=== PATIENT | male | born 1975 | race American Indian/Alaskan Native ===

== ENCOUNTER 2016-12-09 10:55 | Inpatient (IN) | payer OTHER ==
[2016-12-09 12:40] LABS: Alanine Aminotransferase 83 units/L (7-56); Albumin 3.2 g/dL (3.9-5); Albumin/Globulin Ratio 0.9 %; Alkaline Phosphatase 105 units/L (35-129); Anion Gap 21 mmol/L; Bilirubin,Total 12.1 mg/dL (0.1-1.2); Blood Urea Nitrogen 24 mg/dL (9-20); Calcium 8.4 mg/dL (8.4-10.2); Carbon Dioxide 21 mmol/L (22-30); Chloride 97.7 mmol/L (98-107); Glucose 139 mg/dL (75-100); Potassium 5.1 mmol/L (3.6-5.0); Sodium 135 mmol/L (137-145); Total Protein 6.6 g/dL (6.3-8.2)
[2016-12-09 12:43] LABS: Basophils % (Auto) 0.9 % (0.0-1.8); Eosinophils % (Auto) 0.3 % (0.0-4.3); Hematocrit 30.8 % (35.5-45.6); Hemoglobin 9.8 gm/dl (11.8-15.2); Mean Corpuscular HGB Conc 32 % (32-34); Mean Corpuscular Hemoglobin 26 pg (28-32); Mean Corpuscular Volume 83 fl (84-94); Platelet Count 445 K/mm3 (140-440); Red Blood Count 3.73 M/mm3 (3.65-5.03); White Blood Count 8.8 K/mm3 (4.5-11.0)
[2016-12-09 12:49] LABS: Red Cell Distribution Width 20.4 % (13.2-15.2)
--- NOTE | 2016-12-09 12:51 | XRay Report ---
CHEST XRAY, 2 VIEWS: History: Shortness of breath. Findings: There is mild cardiomegaly. Pulmonary vessels are within normal limits. The lungs are clear and fully expanded. No infiltrate, pleural effusion or pneumothorax. Normal thoracic cage. IMPRESSION: Cardiomegaly.
[2016-12-09] MEDS ORDERED: NITRO-BID 2% TP ONE (12:54)
[2016-12-09] MEDS ORDERED: LASIX IV ONE (12:54)
--- NOTE | 2016-12-09 12:59 | Emergency Department Report ---
ED General Adult HPI - General Chief complaint: Pain General Stated complaint: FLUIDS LEGS/FEET Time Seen by Provider: 12/09/16 12:40 Source: patient Mode of arrival: Ambulatory Limitations: No Limitations - History of Present Illness MD Complaint: swelling and SOB -: Gradual, month(s) Location: abdomen, genitals, lower extremity Radiation: non-radiation Quality: aching Consistency: constant Improves with: medication Worsens with: none Associated Symptoms: denies other symptoms Treatments Prior to Arrival: none - Related Data Home Medications Medication Instructions Recorded Confirmed Last Taken Aspirin [Aspirin TAB] 325 mg PO QDAY 12/09/16 12/09/16 Unknown Previous Rx's Medication Instructions Recorded Last Taken Type Carvedilol [Coreg] 6.25 mg PO BID #60 tablet 12/01/16 Unknown Rx Furosemide [Lasix TAB] 40 mg PO QDAY #30 tablet 12/01/16 Unknown Rx Lisinopril [Zestril TAB] 5 mg PO QDAY #30 tablet 12/01/16 Unknown Rx Potassium Chloride 10 meq PO QDAY #30 capsule.er 12/01/16 Unknown Rx hydrALAZINE [Apresoline TAB] 75 mg PO Q8HR #90 tablet 12/01/16 Unknown Rx Allergies Allergy/AdvReac Type Severity Reaction Status Date / Time No Known Allergies Allergy Verified 08/18/16 21:37 ED Review of Systems ROS: Stated complaint: FLUIDS LEGS/FEET Other details as noted in HPI Comment: All other systems reviewed and negative Constitutional: denies: chills, fever Eyes: denies: eye pain, eye discharge, vision change ENT: denies: ear pain, throat pain Respiratory: denies: cough, shortness of breath, wheezing Cardiovascular: denies: chest pain, palpitations Endocrine: no symptoms reported Gastrointestinal: denies: abdominal pain, nausea, diarrhea Genitourinary: denies: urgency, dysuria Musculoskeletal: denies: back pain, joint swelling, arthralgia Skin: denies: rash, lesions Neurological: denies: headache, weakness, paresthesias Psychiatric: denies: anxiety, depression Hematological/Lymphatic: denies: easy bleeding, easy bruising ED Past Medical Hx - Past Medical History Previous Medical History?: Yes Hx Hypertension: Yes (noncompliant) Hx Congestive Heart Failure: Yes Hx Diabetes: No Hx Asthma: No Hx COPD: No - Surgical History Past Surgical History?: No - Social History Smoking Status: Current Every Day Smoker Substance Use Type: Prescribed - Medications Home Medications: Home Medications Medication Instructions Recorded Confirmed Last Taken Type Carvedilol [Coreg] 6.25 mg PO BID #60 tablet 12/01/16 12/09/16 Unknown Rx Furosemide [Lasix TAB] 40 mg PO QDAY #30 tablet 12/01/16 12/09/16 Unknown Rx Lisinopril [Zestril TAB] 5 mg PO QDAY #30 tablet 12/01/16 12/09/16 Unknown Rx Potassium Chloride 10 meq PO QDAY #30 capsule.er 12/01/16 12/09/16 Unknown Rx hydrALAZINE [Apresoline TAB] 75 mg PO Q8HR #90 tablet 12/01/16 12/09/16 Unknown Rx Aspirin [Aspirin TAB] 325 mg PO QDAY 12/09/16 12/09/16 Unknown History ED Physical Exam - General Limitations: No Limitations General appearance: alert, in no apparent distress - Head Head exam: Present: atraumatic, normocephalic - ENT ENT exam: Present: mucous membranes moist - Neck Neck exam: Present: normal inspection. Absent: tenderness, meningismus, full ROM, lymphadenopathy, thyromegaly - Respiratory Respiratory exam: Present: rales, decreased breath sounds - Cardiovascular Cardiovascular Exam: Present: regular rate, normal rhythm. Absent: systolic murmur, diastolic murmur, rubs, gallop - GI/Abdominal GI/Abdominal exam: Present: soft, distended, normal bowel sounds. Absent: tenderness, guarding, rebound, rigid - Rectal Rectal exam: Present: deferred - Extremities Exam Extremities exam: Present: full ROM, normal capillary refill, pedal edema. Absent: tenderness, calf tenderness - Back Exam Back exam: Present: normal inspection - Psychiatric Psychiatric exam: Present: normal affect, normal mood - Skin Skin exam: Present: warm, dry, intact, normal color. Absent: rash ED Course Vital Signs 12/09/16 12/09/16 12/09/16 11:45 13:34 14:39 Temperature 98.4 F Pulse Rate 109 H 106 H 103 H Respiratory 20 26 H Rate Blood Pressure 136/96 134/98 Blood Pressure 142/95 [Left] O2 Sat by Pulse 99 100 Oximetry 12/09/16 14:57 Temperature Pulse Rate Respiratory 26 H Rate Blood Pressure Blood Pressure [Left] O2 Sat by Pulse 95 Oximetry ED Medical Decision Making - Lab Data Result diagrams: 12/09/16 12:02 12/09/16 12:02 - EKG Data -: EKG Interpreted by Me EKG shows normal: sinus rhythm Rate: tachycardia - EKG Data When compared to previous EKG there are: no significant change - Medical Decision Making Patient will need admission for CHF / pulmonary edema, and liver failure, He says hes complaint with his meds, currently stable here and talk to cardiology and internal medicine and agree with admission. lasix / nitro given here. Critical care attestation.: If time is entered above; I have spent that time in minutes in the direct care of this critically ill patient, excluding procedure time. ED Disposition Clinical Impression: HTN (hypertension), Acute CHF (congestive heart failure) Disposition: OP ADMITTED IP TO THIS HOSP Is pt being admited?: Yes Does the pt Need Aspirin: No Condition: Good Instructions: Hypertension (ED) Referrals: PRIMARY CARE, [Primary Care Provider] - 3-5 Days Time of Disposition: 15:43
[2016-12-09 14:00] LABS: Creatine Kinase MB 3.1 ng/mL (0.0-4.0)
[2016-12-09 14:52] LABS: Bilirubin,Urine SM (Negative); Blood,Urine NEG (Negative); Ketones,Urine NEG (Negative); Leukocyte Esterase,Urine NEG (Negative); Nitrite,Urine NEG (Negative); Protein,Urine <15 mg/dL mg/dL (Negative); RBC,Urine < 1.0 /HPF (0.0-6.0)
--- NOTE | 2016-12-09 15:48 | Admit Criteria Form ---
Admission Criteria Documentation: HEART FAILURE: COMMON COMPLICATIONS Clinical Indications for Inpatient Care (Place 'X' for any and all applicable criteria): Ongoing inpatient care may be indicated for heart failure with ANY ONE of the following (1)(2)(3)(4)(5): [ ]I. Ongoing need for care for primary condition requiring frequent therapy adjustments because of changes in cardiac function (eg, drug dosage changes for drugs that are renally metabolized) [ ]II. New-onset heart failure [ ]III. Heart failure with decreased urine output not responsive to attempts to optimize volume status [ ]IV. Acute cardiac ischemia causing or associated with failure [X]V. Complications of heart failure, including ANY ONE of the following: [ ]a) Pericardial effusion [ ]b) Symptomatic pleural effusion [ ]c) O2 saturation <90% or PO2 < 60 mm Hg (8.0 kPa) on room air or require baseline supplemental O2 [ ]d) Tachypnea [X]e) Dyspnea [ ]f) Syncope [ ]g) Change in mental status [ ]h) Acute renal insufficiency that is severe (reduction of more than 50% in estimated glomerular filtration rate from baseline) or progressive reduction of more than 25% in estimated glomerular filtration rate from baseline, with creatinine continuing to rise) [ ]i) Hemodynamic instability [ ]j) Anasarca [ ]k) Clinically significant metabolic abnormalities due to heart failure (eg, new-onset metabolic acidosis) Extended stay beyond goal length of stay for primary condition may be needed until ALL of the following are present(1)(3): [ ]a) Stable and effective diuretic regimen established (or patient on stable dialysis regimen if in chronic renal failure) [ ]b) Breathing comfortably at rest [ ]c) Saturation of arterial oxygen greater than 90% or at acceptable baseline [ ]d) Pulmonary edema absent or improved [ ]e) Hemodynamic stability [ ]f) Volume status acceptable on oral medication [ ]g) Peripheral or sacral edema absent or improved [ ]h) Renal function stable and manageable at a lower level of care [ ]i) Complications (eg, pleural effusion) resolved or manageable at a lower level of care [ ]j) Patient or caregiver has received written discharge instructions or educational material addressing activity level, diet, discharge medications, follow-up appointment, weight monitoring, and what to do if symptoms worsen The original [facility] content created by [employer] has been revised. The portions of the content which have been revised are identified through the use of italic text or in bold, and [facility] has neither reviewed nor approved the modified material.All other unmodified content is copyright [facility]. Please see references footnoted in the original [facility] edition 2016 Admission Criteria Met: Yes
--- NOTE | 2016-12-09 15:59 | Consultation ---
History of Present Illness Consult date: 12/09/16 Requesting physician: CRESENCIO JORDAN Consult reason: congestive heart failure History of present illness: The patient is a 41 year old male with a history of chronic systolic heart failure, hypertension who presented with complaints of worsening abdominal and lower extremity edema over the past 2 days. He was just discharged from [facility] on 12/01/16 following an admission for heart failure. He states that he has been taking lasix 40mg BID and watching his salt and fluid intake. He is not particularly short of breath. He has chronic dyspnea on exertion and orthopnea which is unchanged. No chest pain, palpitations, nausea, vomiting or diaphoresis. Troponin negative. BNP 3990. Bilirubin 12.1. Echo done 07/2016 showed EF 40-45%, moderate MR, mild-moderate TR. No previous ischemic evaluation. Past History Past Medical History: heart failure, hypertension Past Surgical History: No surgical history Social history: smoking (smokes 3-4 cigarettes/day), full code. denies: alcohol abuse, prescription drug abuse, IV drug use Family history: no significant family history Medications and Allergies Allergies Allergy/AdvReac Type Severity Reaction Status Date / Time No Known Allergies Allergy Verified 08/18/16 21:37 Home Medications Medication Instructions Recorded Confirmed Last Taken Type Carvedilol [Coreg] 6.25 mg PO BID #60 tablet 12/01/16 12/09/16 Unknown Rx Furosemide [Lasix TAB] 40 mg PO QDAY #30 tablet 12/01/16 12/09/16 Unknown Rx Lisinopril [Zestril TAB] 5 mg PO QDAY #30 tablet 12/01/16 12/09/16 Unknown Rx Potassium Chloride 10 meq PO QDAY #30 capsule.er 12/01/16 12/09/16 Unknown Rx hydrALAZINE [Apresoline TAB] 75 mg PO Q8HR #90 tablet 12/01/16 12/09/16 Unknown Rx Aspirin [Aspirin TAB] 325 mg PO QDAY 12/09/16 12/09/16 Unknown History Review of Systems Constitutional: no fever, no chills Ears, nose, mouth and throat: no nasal congestion, no nasal discharge, no sinus pressure Cardiovascular: orthopnea, shortness of breath, dyspnea on exertion, leg edema, no chest pain, no palpitations Respiratory: shortness of breath, dyspnea on exertion, no cough, no congestion, no wheezing Gastrointestinal: no abdominal pain, no nausea, no vomiting, no diarrhea Genitourinary Male: no dysuria, no hematuria Musculoskeletal: no neck stiffness, no neck pain, no myalgias Integumentary: no rash, no pruritis Neurological: no parathesias, no numbness, no tingling, no headaches Endocrine: no cold intolerance, no heat intolerance Hematologic/Lymphatic: no easy bruising, no easy bleeding Allergic/Immunologic: no urticaria, no wheezing Physical Examination Vital Signs Temp Pulse Resp BP Pulse Ox 98.4 F 109 H 20 136/96 99 12/09/16 11:45 12/09/16 11:45 12/09/16 11:45 12/09/16 11:45 12/09/16 11:45 General appearance: no acute distress HEENT: Positive: Jaundice, Normocephaly, Mucus Membranes Moist Neck: Positive: neck supple, trachea midline Cardiac: Positive: Reg Rate and Rhythm, S1/S2, Systolic Murmur Lungs: Positive: clear to auscultation Neuro: Positive: Grossly Intact Abdomen: Positive: Soft, Distended Skin: Positive: Clear. Negative: Rash Extremities: Present: +3 Edema (bilateral lower legs) Results 12/09/16 12:02 12/09/16 12:02 Cardiac Enzymes 12/09/16 12/09/16 Range/Units 12:02 12:02 AST 46 H (5-40) units/L CK-MB (CK-2) 3.1 (0.0-4.0) ng/mL CBC 12/09/16 Range/Units 12:02 WBC 8.8 (4.5-11.0) K/mm3 RBC 3.73 (3.65-5.03) M/mm3 Hgb 9.8 L (11.8-15.2) gm/dl Hct 30.8 L (35.5-45.6) % Plt Count 445 H (140-440) K/mm3 Lymph # 1.9 (1.2-5.4) K/mm3 [place] # 0.7 (0.0-0.8) K/mm3 Eos # 0.0 (0.0-0.4) K/mm3 Baso # 0.1 (0.0-0.1) K/mm3 Comprehensive Metabolic Panel 03/15/17 Range/Units 12:02 Sodium 135 L (137-145) mmol/L Potassium 5.1 H (3.6-5.0) mmol/L Chloride 97.7 L (98-107) mmol/L Carbon Dioxide 21 L (22-30) mmol/L BUN 24 H (9-20) mg/dL Creatinine 0.8 (0.8-1.5) mg/dL Glucose 139 H (75-100) mg/dL Calcium 8.4 (8.4-10.2) mg/dL AST 46 H (5-40) units/L ALT 83 H (7-56) units/L Alkaline Phosphatase 105 (35-129) units/L Total Protein 6.6 (6.3-8.2) g/dL Albumin 3.2 L (3.9-5) g/dL - Imaging and Cardiology Echo: pending, report reviewed EKG: image reviewed EKG interpretations - Telemetry EKG Rhythm: Sinus Rhythm - EKG Sinus rhythms and dysrhythmias: sinus rhythm Assessment and Plan Acute on chronic systolic heart failure Echo 07/2016: EF 40-45%, moderate MR, mild-moderate TR, await repeat continue IV lasix, coreg, lisinopril strict I/Os Jaundice/elevated bilirubin recommend GI evaluation Hypertension stable Non-compliance Continue IV lasix and close monitoring of volume status. Await repeat echo findings. Recommend GI evaluation. The patient has been seen in conjunction with Dr. Jennings who agrees with the assessment and plan of care. Thank you Dr. Jordan for allowing us to participate in the care of this patient.
--- NOTE | 2016-12-09 17:54 | History and Physical Report ---
History of Present Illness Date of examination: 12/09/16 Date of admission: 12/09/16 Past History Past Medical History: heart failure, hypertension Past Surgical History: No surgical history Social history: smoking (smokes 3-4 cigarettes/day), full code. denies: alcohol abuse, prescription drug abuse, IV drug use Family history: no significant family history Medications and Allergies Allergies Allergy/AdvReac Type Severity Reaction Status Date / Time No Known Allergies Allergy Verified 08/18/16 21:37 Home Medications Medication Instructions Recorded Confirmed Last Taken Type Carvedilol [Coreg] 6.25 mg PO BID #60 tablet 12/01/16 12/09/16 Unknown Rx Furosemide [Lasix TAB] 40 mg PO QDAY #30 tablet 12/01/16 12/09/16 Unknown Rx Lisinopril [Zestril TAB] 5 mg PO QDAY #30 tablet 12/01/16 12/09/16 Unknown Rx Potassium Chloride 10 meq PO QDAY #30 capsule.er 12/01/16 12/09/16 Unknown Rx hydrALAZINE [Apresoline TAB] 75 mg PO Q8HR #90 tablet 12/01/16 12/09/16 Unknown Rx Aspirin [Aspirin TAB] 325 mg PO QDAY 12/09/16 12/09/16 Unknown History Active Meds: Active Medications Carvedilol (Coreg) 6.25 mg PO BID SARAH Furosemide (Lasix) 80 mg IV DAILY SARAH Lisinopril (Zestril) 5 mg PO DAILY SARAH Review of Systems Constitutional: weight gain Exam - Constitutional Vitals: Temp Pulse Resp BP Pulse Ox 98.4 F 103 H 26 H 142/95 95 12/09/16 11:45 12/09/16 14:39 12/09/16 14:57 12/09/16 14:39 12/09/16 14:57 General appearance: Present: no acute distress, well-nourished - EENT Eyes: Present: PERRL ENT: hearing intact, clear oral mucosa - Neck Neck: Present: supple, normal ROM - Respiratory Respiratory effort: normal Respiratory: bilateral: CTA - Cardiovascular Heart Sounds: Present: S1 & S2. Absent: rub, click - Extremities Extremities: pulses symmetrical, No edema Peripheral Pulses: within normal limits - Abdominal General gastrointestinal: Present: soft, non-tender, non-distended, normal bowel sounds Male genitourinary: Present: normal - Integumentary Integumentary: Present: clear, warm, dry - Musculoskeletal Musculoskeletal: gait normal, strength equal bilaterally - Psychiatric Psychiatric: appropriate mood/affect, intact judgment & insight - Neurologic Neurologic: CNII-XII intact, moves all extremities Results - Labs CBC & Chem 7: 12/09/16 12:02 12/09/16 12:02 Labs: Laboratory Last Values WBC 8.8 K/mm3 (4.5-11.0) 12/09/16 12:02 RBC 3.73 M/mm3 (3.65-5.03) 12/09/16 12:02 Hgb 9.8 gm/dl (11.8-15.2) L 12/09/16 12:02 Hct 30.8 % (35.5-45.6) L 12/09/16 12:02 MCV 83 fl (84-94) L 12/09/16 12:02 MCH 26 pg (28-32) L 12/09/16 12:02 MCHC 32 % (32-34) 12/09/16 12:02 RDW 20.4 % (13.2-15.2) H 12/09/16 12:02 Plt Count 445 K/mm3 (140-440) H 12/09/16 12:02 Lymph % (Auto) 21.3 % (13.4-35.0) 12/09/16 12:02 Petroleum % (Auto) 8.0 % (0.0-7.3) H 12/09/16 12:02 Eos % (Auto) 0.3 % (0.0-4.3) 12/09/16 12:02 Baso % (Auto) 0.9 % (0.0-1.8) 12/09/16 12:02 Lymph # 1.9 K/mm3 (1.2-5.4) 12/09/16 12:02 Petroleum # 0.7 K/mm3 (0.0-0.8) 12/09/16 12:02 Eos # 0.0 K/mm3 (0.0-0.4) 12/09/16 12:02 Baso # 0.1 K/mm3 (0.0-0.1) 12/09/16 12:02 Seg Neutrophils % 69.5 % (40.0-70.0) 12/09/16 12:02 Seg Neutrophils # 6.1 K/mm3 (1.8-7.7) 12/09/16 12:02 Sodium 135 mmol/L (137-145) L 12/09/16 12:02 Potassium 5.1 mmol/L (3.6-5.0) H 12/09/16 12:02 Chloride 97.7 mmol/L (98-107) L 12/09/16 12:02 Carbon Dioxide 21 mmol/L (22-30) L 12/09/16 12:02 Anion Gap 21 mmol/L 12/09/16 12:02 BUN 24 mg/dL (9-20) H 12/09/16 12:02 Creatinine 0.8 mg/dL (0.8-1.5) 12/09/16 12:02 Estimated GFR > 60 ml/min 12/09/16 12:02 BUN/Creatinine Ratio 30.00 % 12/09/16 12:02 Glucose 139 mg/dL (75-100) H 12/09/16 12:02 Calcium 8.4 mg/dL (8.4-10.2) 12/09/16 12:02 Total Bilirubin 12.1 mg/dL (0.1-1.2) H 12/09/16 12:02 AST 46 units/L (5-40) H 12/09/16 12:02 ALT 83 units/L (7-56) H 12/09/16 12:02 Alkaline Phosphatase 105 units/L (35-129) 12/09/16 12:02 Total Creatine Kinase 207 units/L (55-170) H 12/09/16 12:02 CK-MB (CK-2) 3.1 ng/mL (0.0-4.0) 12/09/16 12:02 CK-MB (CK-2) Rel Index 1.4 (0-4) 12/09/16 12:02 Troponin T < 0.010 ng/mL (0.00-0.029) 12/09/16 12:02 NT-Pro-B Natriuret Pep 3390 pg/mL (0-450) H 12/09/16 12:02 Total Protein 6.6 g/dL (6.3-8.2) 12/09/16 12:02 Albumin 3.2 g/dL (3.9-5) L 12/09/16 12:02 Albumin/Globulin Ratio 0.9 % 12/09/16 12:02 Urine Color Fariba (Yellow) 12/09/16 14:24 Urine Turbidity Clear (Clear) 12/09/16 14:24 Urine pH 6.0 (5.0-7.0) 12/09/16 14:24 Ur Specific [place] 1.015 (1.003-1.030) 12/09/16 14:24 Urine Protein <15 mg/dl mg/dL (Negative) 12/09/16 14:24 Urine Glucose (UA) Neg mg/dL (Negative) 12/09/16 14:24 Urine Ketones Neg mg/dL (Negative) 12/09/16 14:24 Urine Blood Neg (Negative) 12/09/16 14:24 Urine Nitrite Neg (Negative) 12/09/16 14:24 Urine Bilirubin Sm (Negative) 12/09/16 14:24 Urine Ictotest Positive (Negative) 12/09/16 14:24 Urine Urobilinogen 4.0 mg/dL (<2.0) 12/09/16 14:24 Ur Leukocyte Esterase Neg (Negative) 12/09/16 14:24 Urine WBC (Auto) 1.0 /HPF (0.0-6.0) 12/09/16 14:24 Urine RBC (Auto) < 1.0 /HPF (0.0-6.0) 12/09/16 14:24 Short CBC 12/09/16 Range/Units 12:02 WBC 8.8 (4.5-11.0) K/mm3 Hgb 9.8 L (11.8-15.2) gm/dl Hct 30.8 L (35.5-45.6) % Plt Count 445 H (140-440) K/mm3 BMP 12/09/16 12:02 Sodium 135 L Potassium 5.1 H Chloride 97.7 L Carbon Dioxide 21 L BUN 24 H Creatinine 0.8 Glucose 139 H Calcium 8.4 Cardiac Enzymes 12/09/16 12/09/16 Range/Units 12:02 12:02 Total Creatine Kinase 207 H (55-170) units/L CK-MB (CK-2) 3.1 (0.0-4.0) ng/mL Troponin T < 0.010 (0.00-0.029) ng/mL Liver Function 12/09/16 Range/Units 12:02 Total Bilirubin 12.1 H (0.1-1.2) mg/dL AST 46 H (5-40) units/L ALT 83 H (7-56) units/L Alkaline Phosphatase 105 (35-129) units/L Albumin 3.2 L (3.9-5) g/dL Urine 12/09/16 Range/Units 14:24 Urine Color Fariba (Yellow) Urine pH 6.0 (5.0-7.0) Ur Specific [place] 1.015 (1.003-1.030) Urine Protein <15 mg/dl (Negative) mg/dL Urine Glucose (UA) Neg (Negative) mg/dL Assessment and Plan Advance Directives: Yes VTE prophylaxis?: Chemical Plan of care discussed with patient/family: Yes - Patient Problems (1) Acute CHF (congestive heart failure) Current Visit: Yes Status: Acute Qualifiers: Congestive heart failure type: C (2) HTN (hypertension) Current Visit: Yes Status: Acute Qualifiers: Hypertension type: H (3) DVT prophylaxis Current Visit: No Status: Acute (4) Metabolic syndrome Current Visit: No Status: Acute
[2016-12-09] MEDS ORDERED: AMBIEN PO PRN (17:55)
[2016-12-09] MEDS ORDERED: ZOFRAN IV PRN (17:55)
[2016-12-09] MEDS ORDERED: TYLENOL PO PRN (17:55)
[2016-12-09] MEDS ORDERED: DILAUDID IV PRN (17:55)
[2016-12-09] MEDS ORDERED: DULCOLAX PR PRN (17:55)
[2016-12-09] MEDS ORDERED: MILK OF MAGNESIA PO PRN (17:55)
[2016-12-09] MEDS ORDERED: ZESTRIL PO SCH (18:00)
[2016-12-09] MEDS ORDERED: ASPIRIN ONE (19:00)
[2016-12-09] MEDS ORDERED: APRESOLINE ONE (19:00)
[2016-12-09] MEDS ORDERED: ZESTRIL ONE (19:00)
[2016-12-09] MEDS: ASPIRIN PO SCH (19:06)
[2016-12-09] MEDS: APRESOLINE PO SCH (19:07)
[2016-12-09] MEDS: ZESTRIL PO SCH (19:07)
[2016-12-09] MEDS ORDERED: COREG PO SCH (22:00)
[2016-12-09] MEDS ORDERED: COREG ONE (22:31)
[2016-12-09] MEDS: COREG PO SCH (22:37)
[2016-12-10] MEDS: APRESOLINE PO SCH ×3 (06:48→22:38)
[2016-12-10 06:59] LABS: Basophils % (Auto) 0.7 % (0.0-1.8); Eosinophils % (Auto) 1.4 % (0.0-4.3); Hematocrit 28.3 % (35.5-45.6); Hemoglobin 9.2 gm/dl (11.8-15.2); Mean Corpuscular HGB Conc 32 % (32-34); Mean Corpuscular Hemoglobin 26 pg (28-32); Mean Corpuscular Volume 81 fl (84-94); Platelet Count 407 K/mm3 (140-440); Red Blood Count 3.51 M/mm3 (3.65-5.03); White Blood Count 8.9 K/mm3 (4.5-11.0)
[2016-12-10 07:19] LABS: Alanine Aminotransferase 71 units/L (7-56); Alkaline Phosphatase 97 units/L (35-129); Anion Gap 18 mmol/L; BUN/Creatinine Ratio 22.72; Bilirubin,Total 10.9 mg/dL (0.1-1.2); Blood Urea Nitrogen 25 mg/dL (9-20); Calcium 8.1 mg/dL (8.4-10.2); Carbon Dioxide 25 mmol/L (22-30); Chloride 99.4 mmol/L (98-107); Glucose 142 mg/dL (75-100); Potassium 4.6 mmol/L (3.6-5.0); Sodium 138 mmol/L (137-145)
[2016-12-10 07:30] LABS: Red Cell Distribution Width 20.1 % (13.2-15.2)
--- NOTE | 2016-12-10 08:44 | Progress Note ---
Assessment and Plan cardiac status stable/improving bilirubin elevated continue iv diuresis check echo gi consult Subjective Date of service: 12/10/16 Interval history: no cp or sob. states he has been urinating well tel: nsr Objective Vital Signs Temp Pulse Pulse Resp BP BP Pulse Ox 12/10/16 07:35 97.6 F 93 H 18 116/75 100 12/10/16 06:48 3 L 116/75 12/10/16 00:46 97.8 F 100 H 18 114/76 100 12/09/16 23:35 100 H 12/09/16 23:11 101 H 24 129/78 98 12/09/16 23:00 99 H 10 L 129/78 12/09/16 22:51 97 H 17 133/68 97 12/09/16 22:41 102 H 19 133/93 97 12/09/16 22:37 102 H 133/93 12/09/16 22:30 103 H 26 H 133/93 97 12/09/16 22:21 101 H 30 H 132/94 97 12/09/16 22:11 102 H 34 H 132/95 100 12/09/16 22:00 99 H 22 132/95 99 12/09/16 21:51 100 H 16 126/91 99 12/09/16 21:41 103 H 20 124/83 100 12/09/16 21:30 101 H 16 124/83 99 12/09/16 21:21 99 H 25 H 115/78 100 12/09/16 21:11 102 H 22 128/92 95 12/09/16 21:00 104 H 22 128/92 98 12/09/16 20:51 104 H 26 H 122/89 94 12/09/16 20:41 102 H 23 121/91 96 12/09/16 20:30 104 H 23 121/91 91 12/09/16 20:21 105 H 28 H 133/90 95 12/09/16 20:11 106 H 27 H 127/88 95 12/09/16 20:00 108 H 26 H 127/88 94 12/09/16 19:51 107 H 25 H 123/90 93 12/09/16 19:41 108 H 27 H 130/91 93 12/09/16 19:30 108 H 27 H 130/91 12/09/16 19:21 108 H 27 H 124/88 93 12/09/16 19:11 108 H 26 H 116/82 93 12/09/16 19:07 107 H 116/82 12/09/16 19:00 107 H 26 H 116/82 92 12/09/16 18:51 107 H 22 116/85 90 12/09/16 18:41 100 H 27 H 119/87 89 12/09/16 18:30 104 H 26 H 119/87 97 12/09/16 18:21 103 H 26 H 127/88 94 12/09/16 18:11 106 H 25 H 93 12/09/16 18:00 105 H 26 H 133/89 93 - Physical Examination General: No Apparent Distress HEENT: Positive: Jaundice, Normocephaly, Mucus Membranes Moist Neck: Positive: neck supple, trachea midline. Negative: JVD/HJR Cardiac: Positive: Reg Rate and Rhythm, Systolic Murmur (2/6 sys murmur lsb and apex). Negative: S3 Lungs: Positive: clear to auscultation Neuro: Positive: Grossly Intact Abdomen: Positive: Soft, Distended (mild). Negative: Tender Skin: Positive: Clear. Negative: Rash Extremities: Present: +2 Edema (bilat lower ext) - Labs and Meds Cardiac Enzymes 12/10/16 Range/Units 06:05 AST 35 (5-40) units/L CBC 12/10/16 Range/Units 06:05 WBC 8.9 (4.5-11.0) K/mm3 RBC 3.51 L (3.65-5.03) M/mm3 Hgb 9.2 L (11.8-15.2) gm/dl Hct 28.3 L (35.5-45.6) % Plt Count 407 (140-440) K/mm3 Lymph # 2.1 (1.2-5.4) K/mm3 [place] # 1.1 H (0.0-0.8) K/mm3 Eos # 0.1 (0.0-0.4) K/mm3 Baso # 0.1 (0.0-0.1) K/mm3 Comprehensive Metabolic Panel 12/10/16 Range/Units 06:05 Sodium 138 (137-145) mmol/L Potassium 4.6 (3.6-5.0) mmol/L Chloride 99.4 (98-107) mmol/L Carbon Dioxide 25 (22-30) mmol/L BUN 25 H (9-20) mg/dL Creatinine 1.1 (0.8-1.5) mg/dL Glucose 142 H (75-100) mg/dL Calcium 8.1 L (8.4-10.2) mg/dL AST 35 (5-40) units/L ALT 71 H (7-56) units/L Alkaline Phosphatase 97 (35-129) units/L Total Protein 6.0 L (6.3-8.2) g/dL Albumin 3.0 L (3.9-5) g/dL - Imaging and Cardiology EKG: image reviewed Echo: pending, report reviewed - EKG Sinus rhythms and dysrhythmias: sinus rhythm
[2016-12-10] MEDS ORDERED: LASIX IV SCH (10:00)
[2016-12-10] MEDS: ZESTRIL PO SCH (10:21)
[2016-12-10] MEDS: COREG PO SCH ×3 (10:21→23:54)
[2016-12-10] MEDS: ASPIRIN PO SCH (10:21)
--- NOTE | 2016-12-10 11:37 | Gastroenterology Consultation ---
History of Present Illness - Reason for Consult Consult date: 12/10/16 elevated bilirubin Requesting physician: JULES OLIVIER - History of Present Illness Mr Cueva is a 41 yo aam with h/o CHF presenting with worsening LE edema. Pt noted to have elevated total bilirubin on admission for which GI has been consulted. Pt denies past h/o known liver disease. He does reports significant alcohol abuse in the 1990s, but reports quiting alcohol for the past 3 years. Denies h/o IV drugs. He has been on medications for htn/CHF for the past year, otherwise denies any other new medications. Past History Past Medical History: heart failure, hypertension Past Surgical History: No surgical history Social history: smoking (smokes 3-4 cigarettes/day), full code. denies: alcohol abuse, prescription drug abuse, IV drug use Family history: no significant family history Medications and Allergies Allergies Allergy/AdvReac Type Severity Reaction Status Date / Time No Known Allergies Allergy Verified 08/18/16 21:37 Home Medications Medication Instructions Recorded Confirmed Last Taken Type Carvedilol [Coreg] 6.25 mg PO BID #60 tablet 12/01/16 12/09/16 Unknown Rx Furosemide [Lasix TAB] 40 mg PO QDAY #30 tablet 12/01/16 12/09/16 Unknown Rx Lisinopril [Zestril TAB] 5 mg PO QDAY #30 tablet 12/01/16 12/09/16 Unknown Rx Potassium Chloride 10 meq PO QDAY #30 capsule.er 12/01/16 12/09/16 Unknown Rx hydrALAZINE [Apresoline TAB] 75 mg PO Q8HR #90 tablet 12/01/16 12/09/16 Unknown Rx Aspirin [Aspirin TAB] 325 mg PO QDAY 12/09/16 12/09/16 Unknown History Active Meds: Active Medications Acetaminophen (Tylenol) 650 mg PO Q4H PRN PRN Reason: Pain MILD(1-3)/Fever >100.5/PEREZ Aspirin (Aspirin) 325 mg PO QDAY [facility] Last Admin: 12/10/16 10:21 Dose: 325 mg Bisacodyl (Dulcolax) 10 mg [place] QDAY PRN PRN Reason: Constipation unrelieved by MOM Carvedilol (Coreg) 6.25 mg PO BID [facility] Last Admin: 12/10/16 10:21 Dose: 6.25 mg Furosemide (Lasix) 80 mg IV DAILY [facility] Last Admin: 12/10/16 10:22 Dose: 80 mg Hydralazine HCl (Apresoline) 75 mg PO Q8HR [facility] Last Admin: 12/10/16 06:48 Dose: 75 mg Hydromorphone HCl (Dilaudid) 0.5 mg IV Q3H PRN PRN Reason: Pain , Severe (7-10) Lisinopril (Zestril) 5 mg PO DAILY [facility] Last Admin: 12/10/16 10:21 Dose: 5 mg Magnesium Hydroxide (Milk Of Magnesia) 30 ml PO Q4H PRN PRN Reason: Constipation Ondansetron HCl (Zofran) 4 mg IV Q8H PRN PRN Reason: N/V unrelieved by Reglan Zolpidem Tartrate (Ambien) 5 mg PO QHS PRN PRN Reason: Insomnia Review of Systems - Review of Systems All systems: negative Constitutional: fatigue Cardiovascular: edema Exam - Constitutional Vital Signs: Temp Pulse Resp BP Pulse Ox 98.7 F 88 20 116/76 99 12/10/16 08:00 12/10/16 08:00 12/10/16 08:00 12/10/16 08:00 12/10/16 08:00 General appearance: no acute distress - EENT Eyes: EOM intact, scleral icterus ENT: hearing intact, clear oral mucosa - Neck Neck: supple, normal ROM - Respiratory Respiratory effort: normal Respiratory: bilateral: CTA - Cardiovascular Rhythm: regular Heart Sounds: Present: S1 & S2 Extremity abnormal: edema - Gastrointestinal General gastrointestinal: Present: soft, non-tender, non-distended, normal bowel sounds - Musculoskeletal Musculoskeletal: normal - Neurologic Neurological: alert and oriented x3 - Psychiatric Psychiatric: appropriate mood/affect - Labs CBC & Chem 7: 12/10/16 06:05 12/10/16 06:05 Lab Results: Laboratory Results - last 24 hr 12/10/16 12/10/16 06:05 06:05 WBC 8.9 RBC 3.51 L Hgb 9.2 L Hct 28.3 L MCV 81 L MCH 26 L MCHC 32 RDW 20.1 H Plt Count 407 Lymph % (Auto) 23.7 [place] % (Auto) 12.2 H Eos % (Auto) 1.4 Baso % (Auto) 0.7 Lymph # 2.1 [place] # 1.1 H Eos # 0.1 Baso # 0.1 Seg Neutrophils % 62.0 Seg Neutrophils # 5.5 Sodium 138 Potassium 4.6 Chloride 99.4 Carbon Dioxide 25 Anion Gap 18 BUN 25 H Creatinine 1.1 Estimated GFR > 60 BUN/Creatinine Ratio 22.72 Glucose 142 H Calcium 8.1 L Total Bilirubin 10.9 H AST 35 ALT 71 H Alkaline Phosphatase 97 Total Protein 6.0 L Albumin 3.0 L Albumin/Globulin Ratio 1.0 Assessment and Plan 1. elevated bilirubin 2. CHF 3. microcytic anemia -pt with elevated total bilirubin, with rest of liver enzymes mostly unremarkable. This can be seen with alcohol hepatitis although he denies alcohol intake in over 3 years and unlikely to explain acute rise. Other possible etiologies including obstructive etiology, congestive hepatopathy from CHF, drug toxicity, or sepsis. recommend fractionaton of bilirubin, abdominal US with doppler, check viral hepatitis serologies. -pt noted to have microcytic anemia, denies overt GI bleeding. check iron studies.
--- NOTE | 2016-12-10 17:20 | Discharge Summary ---
Providers - Providers Date of Admission: 12/09/16 17:55 Attending physician: JULES OLIVIER 12/09/16 18:05 Consult to Physician [CONS] Routine Consulting Provider: MALLORY ATKINS Reason For Exam: High Bilirubin Place consult to:: GI Notified:: yes Was contact made?: Yes If yes, spoke with:: Dr. Nance Time called:: 10:10 Primary care physician: [facility] Hospitalization Condition: Good Hospital course: 41 YO Male admitted for Acute CHF Decompensation, Accelerated HTN, and elevated LFT's. Cardiology team consulted. Pt treated IAW chest pain protocol. Serial cardiac enzymes, ekg, and telemetry monitoring were unremarkable. 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 Pt Transferred to [facility] for CT Surgical intervention. Pt convalesced well during hospital course. Pt symptoms stabilized with therapy. Pt medically optimized and transferred to [facility] in stable condition. Pt evaluated prior to discharge but no significant new physical exam findings since admission. 35 minutes dedicated to patient discharge and education. Disposition: DC/TX ANOTHER TYPE HEALTHCARE - Discharge Diagnoses (1) Acute CHF (congestive heart failure) Status: Acute Qualifiers: Congestive heart failure type: C (2) DVT prophylaxis Status: Acute (3) HTN (hypertension) Status: Acute Qualifiers: Hypertension type: H (4) Metabolic syndrome Status: Acute (5) Mitral regurgitation Status: Acute Qualifiers: Cardiac valve disease etiology: etiology unspecified Qualified Code(s): I34.0 - Nonrheumatic mitral (valve) insufficiency Core Measure Documentation - Palliative Care Palliative Care/ Comfort Measures: Not Applicable - Core Measures Any of the following diagnoses?: heart failure - Heart Failure Discharge Requirements KAREN/ARB for LVSD if EF <40%: Yes Beta trev at discharge: Yes Exam - Constitutional Vitals: Temp Pulse Resp BP Pulse Ox 97.9 F 87 20 111/85 99 12/10/16 12:00 12/10/16 12:00 12/10/16 12:00 12/10/16 12:00 12/10/16 12:00 General appearance: Present: no acute distress, well-nourished - EENT Eyes: Present: PERRL ENT: hearing intact, clear oral mucosa - Neck Neck: Present: supple, normal ROM - Respiratory Respiratory effort: normal Respiratory: bilateral: CTA - Cardiovascular Heart Sounds: Present: S1 & S2, diastolic murmur. Absent: rub, click - Extremities Extremities: pulses symmetrical, No edema Peripheral Pulses: within normal limits - Abdominal General gastrointestinal: Present: soft, non-tender, non-distended, normal bowel sounds Male genitourinary: Present: normal - Integumentary Integumentary: Present: clear, warm, dry - Musculoskeletal Musculoskeletal: gait normal, strength equal bilaterally - Psychiatric Psychiatric: appropriate mood/affect, intact judgment & insight - Neurologic Neurologic: CNII-XII intact, moves all extremities Plan Activity: advance as tolerated Follow up with: PRIMARY CARE, [Primary Care Provider] - 3-5 Days
[2016-12-10 17:56] LABS: Bilirubin,Direct 7.9 mg/dL (0-0.2); Bilirubin,Indirect 3.7 mg/dL; Bilirubin,Total 11.6 mg/dL (0.1-1.2)
[2016-12-10 21:15] VITALS: BP 130/93
[2016-12-11] MEDS ORDERED: COREG PO ONE (00:12)
== END 2016-12-11 00:30 | disposition short-term general hospital (02) | DRG 293 ==
LOC: ED 10:55 → 4A 17:55
PROVIDERS: ADMIT Internal Medicine; ATTEND Internal Medicine
DX: I11.0 Hypertensive heart disease with heart failure (principal); I50.23 Acute on chronic systolic (congestive) heart failure; F17.210 Nicotine dependence, cigarettes, uncomplicated; E80.7 Disorder of bilirubin metabolism, unspecified; E88.81 Metabolic syndrome and other insulin resistance; D50.9 Iron deficiency anemia, unspecified; I34.0 Nonrheumatic mitral (valve) insufficiency; Z91.19 Patient's noncompliance with other medical treatment and regimen
CPT/HCPCS: 36415; 71020; 80053; 81001; 82248; 82550; 82553; 83880; 84484; 85025; 93005; 93010; 93306; 96374; J1170; J1940

== ENCOUNTER 2017-09-01 21:54 | Emergency (ER) | payer SELFPAY ==
[2017-09-01] MEDS ORDERED: CATAPRES PO ONE (22:34)
[2017-09-02] MEDS ORDERED: CARAFATE PO ONE (07:39)
[2017-09-02] MEDS ORDERED: PEPCID IV ONE (07:39)
[2017-09-02] MEDS ORDERED: BENTYL PO ONE (07:39)
[2017-09-02] MEDS ORDERED: SUBLIMAZE IV ONE (07:39)
--- NOTE | 2017-09-02 07:40 | Emergency Department Report ---
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 He has a follow-up appointment tomorrow with his private log operations coordinator, Dr. Mark Biggs. The patient presents to the ER with 2 complaints. His first complaint is resolved left-sided flank pain. It started 2 weeks ago. It lasted for 4 days. It has since resolved. His next complaint is epigastric and substernal chest pressure. It does not radiate to the back, arms and neck. There is no vomiting, no diaphoresis. It increases with deep inspiration, and it decreases with rest. He also reports that he feels like his chest is "cracking." -: days(s), week(s) (one week for chest discomfort, 2 weeks of flank discomfort which has since resolved) Radiation: non-radiation Consistency: intermittent Improves with: other (as per history of present illness) Worsens with: other (as per history of present illness) Associated Symptoms: chest pain, cough, shortness of breath (chronic shortness of breath which is neither new, worsening or different) - Related Data Home Medications Medication Instructions Recorded Confirmed Last Taken Aspirin [Aspirin TAB] 325 mg PO QDAY 12/09/16 12/09/16 Unknown Previous Rx's Medication Instructions Recorded Last Taken Type Carvedilol [Coreg] 6.25 mg PO BID #60 tablet 12/01/16 Unknown Rx Furosemide [Lasix TAB] 40 mg PO QDAY #30 tablet 12/01/16 Unknown Rx Lisinopril [Zestril TAB] 5 mg PO QDAY #30 tablet 12/01/16 Unknown Rx Potassium Chloride 10 meq PO QDAY #30 capsule.er 12/01/16 Unknown Rx hydrALAZINE [Apresoline TAB] 75 mg PO Q8HR #90 tablet 12/01/16 Unknown Rx Allergies Allergy/AdvReac Type Severity Reaction Status Date / Time No Known Allergies Allergy Verified 08/18/16 21:37 ED Review of Systems ROS: Stated complaint: CP Other details as noted in HPI Constitutional: denies: fever Eyes: denies: vision change ENT: denies: epistaxis Respiratory: denies: wheezing Cardiovascular: chest pain Gastrointestinal: abdominal pain. denies: vomiting Genitourinary: denies: dysuria Musculoskeletal: back pain Skin: denies: lesions Neurological: denies: weakness ED Past Medical Hx - Past Medical History Hx Hypertension: Yes Hx Congestive Heart Failure: Yes Hx Diabetes: No Hx Liver Disease: Yes Hx Asthma: No Hx COPD: No - Social History Smoking Status: Current Every Day Smoker Substance Use Type: Alcohol - Medications Home Medications: Home Medications Medication Instructions Recorded Confirmed Last Taken Type Carvedilol [Coreg] 6.25 mg PO BID #60 tablet 12/01/16 12/09/16 Unknown Rx Furosemide [Lasix TAB] 40 mg PO QDAY #30 tablet 12/01/16 12/09/16 Unknown Rx Lisinopril [Zestril TAB] 5 mg PO QDAY #30 tablet 12/01/16 12/09/16 Unknown Rx Potassium Chloride 10 meq PO QDAY #30 capsule.er 12/01/16 12/09/16 Unknown Rx hydrALAZINE [Apresoline TAB] 75 mg PO Q8HR #90 tablet 12/01/16 12/09/16 Unknown Rx Aspirin [Aspirin TAB] 325 mg PO QDAY 12/09/16 12/09/16 Unknown History ED Physical Exam - General Limitations: No Limitations General appearance: alert, in no apparent distress - Head Head exam: Present: atraumatic, normocephalic - Eye Eye exam: Present: normal appearance, EOMI. Absent: nystagmus - ENT ENT exam: Present: normal exam, normal orophraynx, mucous membranes moist, normal external ear exam - Neck Neck exam: Present: normal inspection, full ROM - Respiratory Respiratory exam: Present: normal lung sounds bilaterally, chest wall tenderness. Absent: respiratory distress - Cardiovascular Cardiovascular Exam: Present: regular rate, normal rhythm, normal heart sounds. Absent: systolic murmur, diastolic murmur, rubs, gallop - GI/Abdominal GI/Abdominal exam: Present: soft, normal bowel sounds. Absent: distended, tenderness, guarding, rebound, rigid, pulsatile mass - Rectal Rectal exam: Present: deferred - Extremities Exam Extremities exam: Present: normal inspection, full ROM, normal capillary refill. Absent: calf tenderness - Back Exam Back exam: Present: normal inspection, full ROM. Absent: tenderness, CVA tenderness (R), paraspinal tenderness, vertebral tenderness - Neurological Exam Neurological exam: Present: alert, oriented X3, CN II-XII intact, normal gait, other (Extraocular movements intact. Tongue midline. No facial droop. Facial sensation intact to light touch in the V1, V2, V3 distribution bilaterally. 5 and 5 strength in 4 extremities.. Sensation is intact to light touch in 4 extremities.). Absent: motor sensory deficit - Psychiatric Psychiatric exam: Present: normal affect, normal mood - Skin Skin exam: Present: warm, dry, intact, normal color. Absent: rash ED Course Vital Signs 09/01/17 09/01/17 09/02/17 22:07 22:45 07:21 Temperature 98.2 F Pulse Rate 97 H 97 H 88 Respiratory 16 12 Rate Blood Pressure 168/118 168/118 O2 Sat by Pulse 99 Oximetry 09/02/17 09/02/17 09/02/17 07:31 07:45 08:01 Temperature Pulse Rate 84 86 89 Respiratory 15 21 20 Rate Blood Pressure 149/109 149/109 149/109 O2 Sat by Pulse 99 97 98 Oximetry 09/02/17 09/02/17 09/02/17 08:15 08:37 08:43 Temperature Pulse Rate 84 88 Respiratory 15 18 Rate Blood Pressure 149/109 149/109 O2 Sat by Pulse 96 98 98 Oximetry - Reevaluation(s) Reevaluation #1: 09/02/17 10:05 Patient specifically counseled to follow up with his primary care doctor tomorrow for his subtherapeutic INR. ED Medical Decision Making - Lab Data Result diagrams: 09/02/17 07:11 09/02/17 07:11 Vital Signs 09/01/17 09/01/17 09/02/17 22:07 22:45 07:21 Temperature 98.2 F Pulse Rate 97 H 97 H 88 Respiratory 16 12 Rate Blood Pressure 168/118 168/118 O2 Sat by Pulse 99 Oximetry 09/02/17 09/02/17 09/02/17 07:31 07:45 08:01 Temperature Pulse Rate 84 86 89 Respiratory 15 21 20 Rate Blood Pressure 149/109 149/109 149/109 O2 Sat by Pulse 99 97 98 Oximetry 09/02/17 09/02/17 09/02/17 08:15 08:37 08:43 Temperature Pulse Rate 84 88 Respiratory 15 18 Rate Blood Pressure 149/109 149/109 O2 Sat by Pulse 96 98 98 Oximetry Lab Results 09/02/17 09/02/17 Range/Units 07:11 07:11 WBC 7.9 (4.5-11.0) K/mm3 RBC 4.15 (3.65-5.03) M/mm3 Hgb 12.6 (11.8-15.2) gm/dl Hct 37.8 (35.5-45.6) % MCV 91 (84-94) fl MCH 30 (28-32) pg MCHC 33 (32-34) % RDW 16.1 H (13.2-15.2) % Plt Count 272 (140-440) K/mm3 Lymph % (Auto) 19.7 (13.4-35.0) % [place] % (Auto) 10.2 H (0.0-7.3) % Eos % (Auto) 2.1 (0.0-4.3) % Baso % (Auto) 0.7 (0.0-1.8) % Lymph # 1.6 (1.2-5.4) K/mm3 [place] # 0.8 (0.0-0.8) K/mm3 Eos # 0.2 (0.0-0.4) K/mm3 Baso # 0.1 (0.0-0.1) K/mm3 Seg Neutrophils % 67.3 (40.0-70.0) % Seg Neutrophils # 5.3 (1.8-7.7) K/mm3 Sodium 142 (137-145) mmol/L Potassium 4.4 (3.6-5.0) mmol/L Chloride 101.3 (98-107) mmol/L Carbon Dioxide 28 (22-30) mmol/L Anion Gap 17 mmol/L BUN 18 (9-20) mg/dL Creatinine 1.1 (0.8-1.5) mg/dL Estimated GFR > 60 ml/min BUN/Creatinine Ratio 16 % Glucose 108 H (75-100) mg/dL Calcium 8.9 (8.4-10.2) mg/dL Troponin T < 0.010 (0.00-0.029) ng/mL - EKG Data -: EKG Interpreted by Mi - EKG Data 09/02/17 09:48 EKG #1 demonstrates ventricular paced rhythm, left axis deviation, good capture , rate 99, not morphologically consistent with ST elevation myocardial infarction, appears change when compared to prior EKG, however patient has had subsequent interval insertion of pacer. Repeat EKG is also unchanged. - Radiology Data Radiology results: report reviewed, image reviewed CTA CHEST CT ABDOMEN AND PELVIS WITH CONTRAST INDICATION: Shortness of breath, chest pain. History of mitral valve replacement, currently on Coumadin. COMPARISON: None similar. FINDINGS: Chest CTA as also abdomen and pelvis CT performed following intravenous administration of 100 cc of Omnipaque 300. Axial, sagittal, coronal and MIP reconstructions obtained. CHEST: Mild cardiomegaly. No aortic aneurysm, dissection or suspicious pulmonary arterial filling defects. Borderline pulmonary arterial hypertension. No pericardial effusion. Patent central airway. Mild increased soft tissue/nonspecific lymphadenopathy noted as follows: 1. Approximately 1.5 cm subcarinal lymph node, axial image 109, series 2. 2. Approximately 1.6 cm right hilar lymphadenopathy/soft tissue, axial image 119 while approximately 1.2 cm on the left, axial image 113. 3. Few small AP window lymph nodes as well. No size significant axillary lymphadenopathy. Normal imaged thyroid. Minimal left pleural fluid. Mild bibasilar atelectasis, left more than right lower lobes. Slight pulmonary haziness, possibly congestive. ABDOMEN: Liver, spleen, gallbladder, pancreas, adrenals, aorta, IVC and kidneys within normal limits. Normal opacified GI tract evaluation limited, though grossly nonobstructive. Normal appendix. Mild, usual colonic stool. No ascites. Few small, predominantly subcentimeter mesenteric and retroperitoneal lymph nodes, though the largest 1.2 x 0.5 cm mesenteric lymph node noted as on axial image 452, series 2. PELVIS: Urinary bladder, seminal vesicles, prostate and rectosigmoid within normal limits. No free fluid or significant adenopathy. Approximately 1.7 cm fat containing left inguinal hernia. Mild multilevel spinal degenerative changes as spurring. Disc degeneration including vacuum phenomenon also noted as lower thoracic as also at L4-L5. Mild bilateral hip degenerative changes as well. Sternotomy wires noted with healed midline incision overlying with some scar/keloid. A left upper anterior chest wall pacemaker with dual-chamber leads also seen. CONCLUSION: 1. No CT evidence of pulmonary embolism, though mild pulmonary vascular congestion with minimal left pleural effusion, cardiomegaly, prior sternotomy and left-sided dual-chamber pacemaker, as described. 2. No acute abdominal or pelvic CT abnormality with various other incidental findings, as above. Thank you for the opportunity to participate in this patient's care. - Medical Decision Making Differential diagnosis, including not limited to: Retroperitoneal hematoma, dissection, pulmonary embolus, GERD, gastritis, pericarditis, myocarditis, pericardial effusion Assessment and plan: 41-year-old male who has follow-up with his outpatient log operations coordinator tomorrow. He is afebrile, with reassuring vital signs. EKG demonstrates a ventricular paced rhythm, troponin negative 2, CT scan of the chest negative for aortic catastrophe and pulmonary embolism. Chest discomfort present for one week, 1 patient to be low risk by AMANDA score, low risk by heart score. He is suitable to follow up with outpatient log operations coordinator tomorrow. CT scan of the abdomen and pelvis did not show any retroperitoneal hematoma. Patient observed in the ER for hours without clinical decompensation. Patient given a copy of his CAT scan report, instructed to follow up with his outpatient primary care doctor for incidental adenopathy. Return precautions are reviewed. Critical care attestation.: If time is entered above; I have spent that time in minutes in the direct care of this critically ill patient, excluding procedure time. ED Disposition Clinical Impression: History of flank pain, Chest pain Disposition: DC-01 TO HOME OR SELFCARE Is pt being admited?: No Does the pt Need Aspirin: No Condition: Stable Instructions: Chest Pain (ED) Additional Instructions: Continue outpatient medications. Follow-up with your primary log operations coordinator tomorrow as scheduled. Please note that CT scan demonstrated nonspecific swollen lymph nodes in your chest and abdomen/pelvis. This should be followed up by a primary care doctor within the next month to [address] Quinn Brooks is a local primary care doctor. Please note that not following up with the primary care doctor for swollen lymph nodes as described may result in undiagnosed tumor, cancer, malignancy. Return to the ER right away with new pain, worsened pain, migration of pain, fevers, chills, lethargy, irritability, projectile vomiting, confusion, change in mental status, inability to tolerate liquid feeds. Referrals: PRIMARY CARE, [Primary Care Provider] - 3-5 Days MARK WINN MD [Staff Physician] - 3-5 Days
[2017-09-02 07:45] LABS: Basophils % (Auto) 0.7 % (0.0-1.8); Eosinophils % (Auto) 2.1 % (0.0-4.3); Hematocrit 37.8 % (35.5-45.6); Hemoglobin 12.6 gm/dl (11.8-15.2); Mean Corpuscular HGB Conc 33 % (32-34); Mean Corpuscular Hemoglobin 30 pg (28-32); Mean Corpuscular Volume 91 fl (84-94); Platelet Count 272 K/mm3 (140-440); Red Blood Count 4.15 M/mm3 (3.65-5.03); Red Cell Distribution Width 16.1 % (13.2-15.2); White Blood Count 7.9 K/mm3 (4.5-11.0)
[2017-09-02 07:52] LABS: Anion Gap 17 mmol/L; BUN/Creatinine Ratio 16; Blood Urea Nitrogen 18 mg/dL (9-20); Calcium 8.9 mg/dL (8.4-10.2); Carbon Dioxide 28 mmol/L (22-30); Chloride 101.3 mmol/L (98-107); Glucose 108 mg/dL (75-100); Potassium 4.4 mmol/L (3.6-5.0); Sodium 142 mmol/L (137-145)
[2017-09-02] MEDS ORDERED: NACL ONE (08:04)
[2017-09-02 08:45] VITALS: BP 149/109
--- NOTE | 2017-09-02 09:42 | Cat Scan Report ---
CTA CHEST CT ABDOMEN AND PELVIS WITH CONTRAST INDICATION: Shortness of breath, chest pain. History of mitral valve replacement, currently on Coumadin. COMPARISON: None similar. FINDINGS: Chest CTA as also abdomen and pelvis CT performed following intravenous administration of 100 cc of Omnipaque 300. Axial, sagittal, coronal and MIP reconstructions obtained. CHEST: Mild cardiomegaly. No aortic aneurysm, dissection or suspicious pulmonary arterial filling defects. Borderline pulmonary arterial hypertension. No pericardial effusion. Patent central airway. Mild increased soft tissue/nonspecific lymphadenopathy noted as follows: 1. Approximately 1.5 cm subcarinal lymph node, axial image 109, series 2. 2. Approximately 1.6 cm right hilar lymphadenopathy/soft tissue, axial image 119 while approximately 1.2 cm on the left, axial image 113. 3. Few small AP window lymph nodes as well. No size significant axillary lymphadenopathy. Normal imaged thyroid. Minimal left pleural fluid. Mild bibasilar atelectasis, left more than right lower lobes. Slight pulmonary haziness, possibly congestive. ABDOMEN: Liver, spleen, gallbladder, pancreas, adrenals, aorta, IVC and kidneys within normal limits. Normal opacified GI tract evaluation limited, though grossly nonobstructive. Normal appendix. Mild, usual colonic stool. No ascites. Few small, predominantly subcentimeter mesenteric and retroperitoneal lymph nodes, though the largest 1.2 x 0.5 cm mesenteric lymph node noted as on axial image 452, series 2. PELVIS: Urinary bladder, seminal vesicles, prostate and rectosigmoid within normal limits. No free fluid or significant adenopathy. Approximately 1.7 cm fat containing left inguinal hernia. Mild multilevel spinal degenerative changes as spurring. Disc degeneration including vacuum phenomenon also noted as lower thoracic as also at L4-L5. Mild bilateral hip degenerative changes as well. Sternotomy wires noted with healed midline incision overlying with some scar/keloid. A left upper anterior chest wall pacemaker with dual-chamber leads also seen. CONCLUSION: 1. No CT evidence of pulmonary embolism, though mild pulmonary vascular congestion with minimal left pleural effusion, cardiomegaly, prior sternotomy and left-sided dual-chamber pacemaker, as described. 2. No acute abdominal or pelvic CT abnormality with various other incidental findings, as above. Thank you for the opportunity to participate in this patient's care.
[2017-09-02 09:55] LABS: INR 1.18 (0.87-1.13)
[2017-09-02 09:56] LABS: Partial Thromboplastin Time 33.8 Sec. (24.2-36.6)
[2017-09-02] MEDS ORDERED: LOVENOX SUB-Q ONE (10:06)
== END 2017-09-02 11:43 | disposition home or self-care (01) ==
LOC: ED 21:54
DX: R07.89 Other chest pain (principal); I10 Essential (primary) hypertension; I50.9 Heart failure, unspecified; F17.200 Nicotine dependence, unspecified, uncomplicated; Z79.82 Long term (current) use of aspirin
CPT/HCPCS: 36415; 71275; 74177; 80048; 84484; 85025; 85610; 85730; 93005; 93010; 96372; 96374; 96375; 99284; J1650; J3010; Q9967

== ENCOUNTER 2017-11-26 14:21 | Emergency (ER) | payer SELFPAY ==
--- NOTE | 2017-11-26 17:23 | XRay Report ---
FINAL REPORT EXAM: XR CHEST ROUTINE 2V HISTORY: cough TECHNIQUE: PA and lateral views of the chest PRIORS: None. FINDINGS: Lines, tubes, and devices: Median sternotomy wires and prosthetic cardiac valve are noted. A dual lead left subclavian pacemaker terminates in the right atrium and right ventricle. Lungs and pleura: Trachea is normal in position. Lungs are clear of infiltrate, pleural effusion, vascular congestion, or pneumothorax. Cardiomediastinal silhouette: The heart is moderately enlarged. Other: Bony structures are intact. IMPRESSION: No acute cardiopulmonary process seen. Moderate cardiomegaly.
--- NOTE | 2017-11-26 17:48 | Emergency Department Report ---
ED Chest Pain HPI - General Chief Complaint: Chest Pain Stated Complaint: CHEST PAIN WITH FLU LIKE SYMPTOMS Time Seen by Provider: 11/26/17 16:39 Source: patient Mode of arrival: Ambulatory Limitations: No Limitations - History of Present Illness Initial Comments: He is a 42-year-old [place] male who has a past medical history of congestive heart failure and does have a pacemaker in place who is presenting with chest soreness for 2 days. Patient states he's had a cough for 4 days is productive of clear to yellow sputum. Patient denies any nausea vomiting diarrhea sore throat this time. Patient states chest pain is nonexertional and nonpleuritic. Patient states this is soreness with no radiation. - Related Data Home Medications Medication Instructions Recorded Confirmed Last Taken Aspirin [Aspirin TAB] 325 mg PO QDAY 12/09/16 12/09/16 Unknown Previous Rx's Medication Instructions Recorded Last Taken Type Carvedilol [Coreg] 6.25 mg PO BID #60 tablet 12/01/16 Unknown Rx Furosemide [Lasix TAB] 40 mg PO QDAY #30 tablet 12/01/16 Unknown Rx Lisinopril [Zestril TAB] 5 mg PO QDAY #30 tablet 12/01/16 Unknown Rx Potassium Chloride 10 meq PO QDAY #30 capsule.er 12/01/16 Unknown Rx hydrALAZINE [Apresoline TAB] 75 mg PO Q8HR #90 tablet 12/01/16 Unknown Rx ALBUTEROL Inhaler [ProAir HFA 2 puff IH QID PRN #1 inhalation 11/26/17 Unknown Rx Inhaler] Azithromycin [Zithromax Z-NARESH] 250 mg PO DAILY #6 tablet 11/26/17 Unknown Rx HYDROcodone/APAP 5-325 [[place] 1 each PO Q6HR PRN #12 tablet 11/26/17 Unknown Rx 5/325] predniSONE [Deltasone] 20 mg PO QDAY #5 tab 11/26/17 Unknown Rx Allergies Allergy/AdvReac Type Severity Reaction Status Date / Time No Known Allergies Allergy Verified 08/18/16 21:37 Heart Score - HEART Score History: Slightly suspicious EKG: Normal Age: < 45 Risk factors: 1-2 risk factors Troponin: < normal limit HEART Score: 1 ED Review of Systems ROS: Stated complaint: CHEST PAIN WITH FLU LIKE SYMPTOMS Other details as noted in HPI Comment: All other systems reviewed and negative ED Past Medical Hx - Past Medical History Hx Hypertension: Yes Hx Congestive Heart Failure: Yes Hx Diabetes: No Hx Liver Disease: Yes Hx Asthma: No Hx COPD: No - Surgical History Additional Surgical History: open heart, pacemaker placement - Social History Smoking Status: Current Every Day Smoker Substance Use Type: None - Medications Home Medications: Home Medications Medication Instructions Recorded Confirmed Last Taken Type Carvedilol [Coreg] 6.25 mg PO BID #60 tablet 12/01/16 12/09/16 Unknown Rx Furosemide [Lasix TAB] 40 mg PO QDAY #30 tablet 12/01/16 12/09/16 Unknown Rx Lisinopril [Zestril TAB] 5 mg PO QDAY #30 tablet 12/01/16 12/09/16 Unknown Rx Potassium Chloride 10 meq PO QDAY #30 capsule.er 12/01/16 12/09/16 Unknown Rx hydrALAZINE [Apresoline TAB] 75 mg PO Q8HR #90 tablet 12/01/16 12/09/16 Unknown Rx Aspirin [Aspirin TAB] 325 mg PO QDAY 12/09/16 12/09/16 Unknown History ALBUTEROL Inhaler [ProAir HFA 2 puff IH QID PRN #1 inhalation 11/26/17 Unknown Rx Inhaler] Azithromycin [Zithromax Z-NARESH] 250 mg PO DAILY #6 tablet 11/26/17 Unknown Rx HYDROcodone/APAP 5-325 [[place] 1 each PO Q6HR PRN #12 tablet 11/26/17 Unknown Rx 5/325] predniSONE [Deltasone] 20 mg PO QDAY #5 tab 11/26/17 Unknown Rx ED Physical Exam - General Limitations: No Limitations General appearance: alert, in no apparent distress - Head Head exam: Present: atraumatic, normocephalic - Eye Eye exam: Present: normal appearance - ENT ENT exam: Present: mucous membranes moist - Neck Neck exam: Present: normal inspection - Respiratory Respiratory exam: Present: normal lung sounds bilaterally. Absent: respiratory distress - Cardiovascular Cardiovascular Exam: Present: regular rate, normal rhythm. Absent: systolic murmur, diastolic murmur, rubs, gallop - GI/Abdominal GI/Abdominal exam: Present: soft, normal bowel sounds - Rectal Rectal exam: Present: deferred - Extremities Exam Extremities exam: Present: normal inspection - Back Exam Back exam: Present: normal inspection - Neurological Exam Neurological exam: Present: alert, oriented X3 - Psychiatric Psychiatric exam: Present: normal affect, normal mood - Skin Skin exam: Present: warm, dry, intact, normal color. Absent: rash ED Medical Decision Making - EKG Data -: EKG Interpreted by Me - EKG Data Interpretation: other (paced rhythm at 100 there is a axis is leftward intervals as prolonged QRS consistent with paced rhythm) - Radiology Data Radiology results: image reviewed interpreted by me: No acute process - Medical Decision Making Patient is a smoker is productive cough. Has some soreness in the chest most likely secondary to cough. Patient will be started on antibiotics and given meds for symptomatic relief. Critical care attestation.: If time is entered above; I have spent that time in minutes in the direct care of this critically ill patient, excluding procedure time. ED Disposition Clinical Impression: Costochondral chest pain Acute bronchitis Qualifiers: Bronchitis organism: unspecified organism Qualified Code(s): J20.9 - Acute bronchitis, unspecified Disposition: DC- TO HOME OR SELFCARE Is pt being admited?: No Does the pt Need Aspirin: No Condition: Stable Instructions: Acute Bronchitis (ED), Costochondritis (ED) Prescriptions: ALBUTEROL Inhaler [ProAir HFA Inhaler] 2 puff IH QID PRN #1 inhalation PRN Reason: Shortness Of Breath Azithromycin [Zithromax Z-NARESH] 250 mg PO DAILY #6 tablet HYDROcodone/APAP 5-325 [[place] 5/325] 1 each PO Q6HR PRN #12 tablet PRN Reason: Pain predniSONE [Deltasone] 20 mg PO QDAY #5 tab Referrals: PRIMARY CARE, [Primary Care Provider] - 3-5 Days Forms: Work/School Release Form(ED)
== END 2017-11-26 17:59 | disposition home or self-care (01) ==
LOC: ED 14:21
DX: J20.9 Acute bronchitis, unspecified (principal); I11.0 Hypertensive heart disease with heart failure; I50.9 Heart failure, unspecified; F17.200 Nicotine dependence, unspecified, uncomplicated; Z95.0 Presence of cardiac pacemaker
CPT/HCPCS: 71046

== ENCOUNTER 2017-12-10 01:36 | Emergency (ER) | payer SELFPAY ==
[2017-12-10] MEDS ORDERED: ASPIRIN PO ONE (01:52)
[2017-12-10 02:08] LABS: Basophils # (Auto) 0.1 K/mm3 (0.0-0.1); Basophils % (Auto) 0.9 % (0.0-1.8); Eosinophils # (Auto) 0.1 K/mm3 (0.0-0.4); Eosinophils % (Auto) 0.6 % (0.0-4.3); Hematocrit 36.1 % (35.5-45.6); Hemoglobin 12.3 gm/dl (11.8-15.2); Lymphocytes # (Auto) 0.9 K/mm3 (1.2-5.4); Lymphocytes % (Auto) 9.2 % (13.4-35.0); Mean Corpuscular HGB Conc 34 % (32-34); Mean Corpuscular Hemoglobin 29 pg (28-32); Mean Corpuscular Volume 86 fl (84-94); Monocytes # (Auto) 0.8 K/mm3 (0.0-0.8); Monocytes % (Auto) 7.6 % (0.0-7.3); Platelet Count 298 K/mm3 (140-440); Red Blood Count 4.21 M/mm3 (3.65-5.03); Red Cell Distribution Width 17.1 % (13.2-15.2)
--- NOTE | 2017-12-10 02:28 | XRay Report ---
FINAL REPORT EXAM: XR CHEST ROUTINE 2V HISTORY: cough TECHNIQUE: PA and lateral views of the chest were submitted. Comparison is made to the study 11/26/2017. FINDINGS: There are midline sternotomy sutures. Heart is moderately enlarged. The lungs are not congested. There is stable left-sided perihilar atelectatic changes. Pleural fluid is not seen. There is a pacemaker overlying the left chest wall with the leads in the right atrium and right ventricle. The skeletal structures otherwise well maintained. IMPRESSION: Cardiomegaly. Stable atelectatic changes versus scarring in the left juxtahilar area. No evidence of congestion or pleural effusion.
[2017-12-10 02:34] LABS: BUN/Creatinine Ratio 13; Blood Urea Nitrogen 18 mg/dL (9-20); Calcium 8.2 mg/dL (8.4-10.2); Hemolysis Index 1
[2017-12-10] MEDS ORDERED: ASPIRIN ONE (03:55)
[2017-12-10 04:39] VITALS: BP 144/92
[2017-12-10] MEDS ORDERED: DELTASONE PO ONE (04:54)
[2017-12-10] MEDS ORDERED: LEVAQUIN PO ONE (04:54)
--- NOTE | 2017-12-10 04:58 | Emergency Department Report ---
ED General Adult HPI - General Chief complaint: Chest Pain Stated complaint: CHEST PAIN Time Seen by Provider: 12/10/17 03:19 Source: patient Mode of arrival: Ambulatory Limitations: No Limitations - History of Present Illness Initial comments: Mr. Cueva presents to ER with fever cough shortness of breath. He has overall body aches. Symptoms started a few days ago. He does use tobacco. -: Gradual, days(s) (3) Location: chest Radiation: non-radiation Severity scale (0 -10): 10 Quality: aching Consistency: constant Worsens with: cold therapy Associated Symptoms: chest pain, fever/chills, malaise, shortness of breath - Related Data Home Medications Medication Instructions Recorded Confirmed Last Taken Aspirin [Aspirin TAB] 325 mg PO QDAY 12/09/16 12/09/16 Unknown Previous Rx's Medication Instructions Recorded Last Taken Type Carvedilol [Coreg] 6.25 mg PO BID #60 tablet 12/01/16 Unknown Rx Furosemide [Lasix TAB] 40 mg PO QDAY #30 tablet 12/01/16 Unknown Rx Lisinopril [Zestril TAB] 5 mg PO QDAY #30 tablet 12/01/16 Unknown Rx Potassium Chloride 10 meq PO QDAY #30 capsule.er 12/01/16 Unknown Rx hydrALAZINE [Apresoline TAB] 75 mg PO Q8HR #90 tablet 12/01/16 Unknown Rx ALBUTEROL Inhaler [ProAir HFA 2 puff IH QID PRN #1 inhalation 11/26/17 Unknown Rx Inhaler] Azithromycin [Zithromax Z-NARESH] 250 mg PO DAILY #6 tablet 11/26/17 Unknown Rx HYDROcodone/APAP 5-325 [[place] 1 each PO Q6HR PRN #12 tablet 11/26/17 Unknown Rx 5/325] predniSONE [Deltasone] 20 mg PO QDAY #5 tab 11/26/17 Unknown Rx Levofloxacin [Levaquin] 750 mg PO QDAY 5 Days #5 tablet 12/10/17 Unknown Rx predniSONE [Deltasone] 3 tab PO QDAY 5 Days #15 tab 12/10/17 Unknown Rx Allergies Allergy/AdvReac Type Severity Reaction Status Date / Time No Known Allergies Allergy Verified 08/18/16 21:37 ED Review of Systems ROS: Stated complaint: CHEST PAIN Other details as noted in HPI Comment: All other systems reviewed and negative ENT: denies: throat pain Respiratory: denies: cough ED Past Medical Hx - Past Medical History Previous Medical History?: Yes Hx Hypertension: Yes Hx Congestive Heart Failure: Yes Hx Diabetes: No Hx Liver Disease: Yes Hx Asthma: No Hx COPD: No - Surgical History Past Surgical History?: Yes Additional Surgical History: open heart, pacemaker placement - Social History Smoking Status: Current Some Day Smoker Substance Use Type: None - Medications Home Medications: Home Medications Medication Instructions Recorded Confirmed Last Taken Type Carvedilol [Coreg] 6.25 mg PO BID #60 tablet 12/01/16 12/09/16 Unknown Rx Furosemide [Lasix TAB] 40 mg PO QDAY #30 tablet 12/01/16 12/09/16 Unknown Rx Lisinopril [Zestril TAB] 5 mg PO QDAY #30 tablet 12/01/16 12/09/16 Unknown Rx Potassium Chloride 10 meq PO QDAY #30 capsule.er 12/01/16 12/09/16 Unknown Rx hydrALAZINE [Apresoline TAB] 75 mg PO Q8HR #90 tablet 12/01/16 12/09/16 Unknown Rx Aspirin [Aspirin TAB] 325 mg PO QDAY 12/09/16 12/09/16 Unknown History ALBUTEROL Inhaler [ProAir HFA 2 puff IH QID PRN #1 inhalation 11/26/17 Unknown Rx Inhaler] Azithromycin [Zithromax Z-NARESH] 250 mg PO DAILY #6 tablet 11/26/17 Unknown Rx HYDROcodone/APAP 5-325 [[place] 1 each PO Q6HR PRN #12 tablet 11/26/17 Unknown Rx 5/325] predniSONE [Deltasone] 20 mg PO QDAY #5 tab 11/26/17 Unknown Rx Levofloxacin [Levaquin] 750 mg PO QDAY 5 Days #5 tablet 12/10/17 Unknown Rx predniSONE [Deltasone] 3 tab PO QDAY 5 Days #15 tab 12/10/17 Unknown Rx ED Physical Exam - General Limitations: No Limitations General appearance: alert, in no apparent distress - Head Head exam: Present: atraumatic, normocephalic - Eye Eye exam: Present: normal appearance - ENT ENT exam: Present: mucous membranes moist - Neck Neck exam: Present: normal inspection - Respiratory Respiratory exam: Present: normal lung sounds bilaterally, wheezes (diffuse respiratory). Absent: respiratory distress, rales, rhonchi, stridor - Cardiovascular Cardiovascular Exam: Present: regular rate, normal rhythm. Absent: systolic murmur, diastolic murmur, rubs, gallop - GI/Abdominal GI/Abdominal exam: Present: soft, normal bowel sounds. Absent: distended, tenderness, guarding, rebound - Rectal Rectal exam: Present: deferred - Extremities Exam Extremities exam: Present: normal inspection - Back Exam Back exam: Present: normal inspection - Neurological Exam Neurological exam: Present: alert, oriented X3 - Psychiatric Psychiatric exam: Present: normal affect, normal mood - Skin Skin exam: Present: warm, dry, intact, normal color. Absent: rash ED Course Vital Signs 12/10/17 12/10/17 12/10/17 01:46 02:45 02:51 Temperature 100.7 F H 100.1 F H Pulse Rate 120 H 98 H Respiratory 17 24 Rate Blood Pressure 133/80 126/85 Blood Pressure 126/85 [Right] O2 Sat by Pulse 95 95 Oximetry 12/10/17 12/10/17 12/10/17 03:00 03:15 03:30 Temperature Pulse Rate 96 H 95 H 95 H Respiratory 23 24 23 Rate Blood Pressure 117/84 117/84 132/93 Blood Pressure [Right] O2 Sat by Pulse 95 98 95 Oximetry 12/10/17 12/10/17 12/10/17 03:45 03:52 04:00 Temperature 98.5 F Pulse Rate 95 H 94 H 93 H Respiratory 19 24 23 Rate Blood Pressure 132/93 141/90 Blood Pressure 132/93 [Right] O2 Sat by Pulse 98 99 96 Oximetry 12/10/17 12/10/17 04:15 04:30 Temperature Pulse Rate 90 92 H Respiratory 22 22 Rate Blood Pressure 141/90 144/92 Blood Pressure [Right] O2 Sat by Pulse 98 94 Oximetry ED Medical Decision Making - Lab Data Result diagrams: 12/10/17 01:55 12/10/17 01:55 - Medical Decision Making Mr. Cueva presents with fever cough and wheezing. With History of tobacco abuse antibiotics are indicated. Prescription for Levaquin and prednisone Critical care attestation.: If time is entered above; I have spent that time in minutes in the direct care of this critically ill patient, excluding procedure time. ED Disposition Clinical Impression: Acute bronchitis Disposition: DC-01 TO HOME OR SELFCARE Is pt being admited?: No Does the pt Need Aspirin: No Condition: Stable Instructions: Acute Bronchitis (ED) Prescriptions: Levofloxacin [Levaquin] 750 mg PO QDAY 5 Days #5 tablet predniSONE [Deltasone] 3 tab PO QDAY 5 Days #15 tab Referrals: PRIMARY CARE, [Primary Care Provider] - 3-5 Days Time of Disposition: 04:58
== END 2017-12-10 05:19 | disposition home or self-care (01) ==
LOC: ED 01:36
DX: J20.9 Acute bronchitis, unspecified (principal); I10 Essential (primary) hypertension; F17.200 Nicotine dependence, unspecified, uncomplicated
CPT/HCPCS: 36415; 71046; 80048; 84484; 85025; 93005; 93010; 99284; J7512

== ENCOUNTER 2017-12-12 17:54 | Inpatient (IN) | payer OTHER ==
[2017-12-12 18:30] LABS: Basophils # (Auto) 0.1 K/mm3 (0.0-0.1); Eosinophils % (Auto) 0.2 % (0.0-4.3); Hematocrit 39.2 % (35.5-45.6); Hemoglobin 12.8 gm/dl (11.8-15.2); Lymphocytes % (Auto) 11.4 % (13.4-35.0); Mean Corpuscular HGB Conc 33 % (32-34); Mean Corpuscular Hemoglobin 29 pg (28-32); Mean Corpuscular Volume 88 fl (84-94); Monocytes % (Auto) 11.1 % (0.0-7.3); Platelet Count 308 K/mm3 (140-440); Red Blood Count 4.48 M/mm3 (3.65-5.03); Red Cell Distribution Width 17.5 % (13.2-15.2)
[2017-12-12 18:49] LABS: INR 2.24 (0.87-1.13)
[2017-12-12 18:50] LABS: Partial Thromboplastin Time 40.5 Sec. (24.2-36.6)
[2017-12-12 18:54] LABS: BUN/Creatinine Ratio 13; Blood Urea Nitrogen 18 mg/dL (9-20); Calcium 8.6 mg/dL (8.4-10.2); Hemolysis Index 4
--- NOTE | 2017-12-12 18:59 | XRay Report ---
FINAL REPORT PROCEDURE: XR CHEST ROUTINE 2V TECHNIQUE: PA and lateral chest radiographs were obtained. CPT 89359 HISTORY: Shortness of breath COMPARISON: 12/10/2017 FINDINGS: Heart: Mild cardiomegaly is noted. Mediastinum/Vessels: Normal. Lungs/Pleural space: Subsegmental atelectatic changes in the left perihilar region again identified without change. Bony thorax: No acute osseous abnormality. Other: A bipolar cardiac device is noted on the left side with its leads in place IMPRESSION: No acute pulmonary process Mild cardiomegaly.
[2017-12-12] MEDS ORDERED: XOPENEX IH ONE (20:59)
[2017-12-12] MEDS ORDERED: ATROVENT IH ONE (20:59)
[2017-12-12] MEDS ORDERED: LASIX IV ONE (20:59)
[2017-12-12] MEDS ORDERED: ROCEPHIN/NS 1 GM/50 ML 1 GM/50 ML BAG IV ONE (21:00)
[2017-12-12] MEDS ORDERED: ZITHROMAX 500 MG in NACL 0.9% 250ML 250 ML IV ONE (21:00)
[2017-12-12] MEDS ORDERED: cefTRIAXone 1 GM in NACL 0.9% 20 ML IV ONE (21:00)
[2017-12-12] MEDS ORDERED: ZOFRAN IV ONE (21:00)
--- NOTE | 2017-12-12 21:06 | Emergency Department Report ---
ED Shortness of Breath HPI - General Chief Complaint: Dyspnea/Respdistress Stated Complaint: FLU LIKE SYMPTOMS Time Seen by Provider: 12/12/17 20:50 Source: patient Mode of arrival: Ambulatory Limitations: No Limitations - History of Present Illness Initial Comments: Patient is 42 years old male history of congestive heart failure, pacemaker, hypertension, liver disease. Patient presented with fever cough, shortness of breath nausea for 1 week. Patient was seen here 3 days ago diagnoses acute bronchitis received Levaquin but he stated that his symptoms suggest getting worse. Patient oxygen saturation is 91% on room air in triage. Patient denied any chest pain. MD Complaint: shortness of breath, cough -: week(s) Severity: moderate Improves With: oxygen Known History Of: congestive heart failure Associated Symptoms: fever, cough, sputum production - Related Data Home Medications Medication Instructions Recorded Confirmed Last Taken Aspirin [Aspirin TAB] 325 mg PO QDAY 12/09/16 12/12/17 Unknown Furosemide [Lasix TAB] 80 mg PO QDAY 12/12/17 12/12/17 Unknown Warfarin [Coumadin] 10 mg PO QDAY 12/12/17 12/12/17 Unknown Previous Rx's Medication Instructions Recorded Last Taken Type Carvedilol [Coreg] 6.25 mg PO BID #60 tablet 12/01/16 Unknown Rx Lisinopril [Zestril TAB] 5 mg PO QDAY #30 tablet 12/01/16 Unknown Rx Potassium Chloride 10 meq PO QDAY #30 capsule.er 12/01/16 Unknown Rx hydrALAZINE [Apresoline TAB] 75 mg PO Q8HR #90 tablet 12/01/16 Unknown Rx ALBUTEROL Inhaler [ProAir HFA 2 puff IH QID PRN #1 inhalation 11/26/17 Unknown Rx Inhaler] HYDROcodone/APAP 5-325 [[place] 1 each PO Q6HR PRN #12 tablet 11/26/17 Unknown Rx 5/325] predniSONE [Deltasone] 20 mg PO QDAY #5 tab 11/26/17 Unknown Rx Allergies Allergy/AdvReac Type Severity Reaction Status Date / Time No Known Allergies Allergy Verified 08/18/16 21:37 ED Review of Systems ROS: Stated complaint: FLU LIKE SYMPTOMS Other details as noted in HPI Comment: All other systems reviewed and negative Constitutional: chills, fever Respiratory: cough, orthopnea, shortness of breath, SOB with exertion, SOB at rest Cardiovascular: palpitations, dyspnea on exertion, orthopnea, edema. denies: chest pain Gastrointestinal: nausea. denies: abdominal pain, vomiting, diarrhea, constipation, hematemesis Neurological: denies: headache, weakness, numbness ED Past Medical Hx - Past Medical History Previous Medical History?: Yes Hx Hypertension: Yes Hx Congestive Heart Failure: Yes Hx Diabetes: No Hx Liver Disease: Yes Hx Asthma: No Hx COPD: No - Surgical History Past Surgical History?: Yes Additional Surgical History: open heart, pacemaker placement - Social History Smoking Status: Current Every Day Smoker Substance Use Type: Prescribed - Medications Home Medications: Home Medications Medication Instructions Recorded Confirmed Last Taken Type Carvedilol [Coreg] 6.25 mg PO BID #60 tablet 12/01/16 12/12/17 Unknown Rx Lisinopril [Zestril TAB] 5 mg PO QDAY #30 tablet 12/01/16 12/12/17 Unknown Rx Potassium Chloride 10 meq PO QDAY #30 capsule.er 12/01/16 12/12/17 Unknown Rx hydrALAZINE [Apresoline TAB] 75 mg PO Q8HR #90 tablet 12/01/16 12/12/17 Unknown Rx Aspirin [Aspirin TAB] 325 mg PO QDAY 12/09/16 12/12/17 Unknown History ALBUTEROL Inhaler [ProAir HFA 2 puff IH QID PRN #1 inhalation 11/26/17 12/12/17 Unknown Rx Inhaler] HYDROcodone/APAP 5-325 [[place] 1 each PO Q6HR PRN #12 tablet 11/26/17 12/12/17 Unknown Rx 5/325] predniSONE [Deltasone] 20 mg PO QDAY #5 tab 11/26/17 12/12/17 Unknown Rx Furosemide [Lasix TAB] 80 mg PO QDAY 12/12/17 12/12/17 Unknown History Warfarin [Coumadin] 10 mg PO QDAY 12/12/17 12/12/17 Unknown History ED Physical Exam - General Limitations: No Limitations General appearance: alert, in no apparent distress - Head Head exam: Present: atraumatic, normocephalic - Eye Eye exam: Present: normal appearance, PERRL - ENT ENT exam: Present: normal exam, normal orophraynx, mucous membranes moist - Neck Neck exam: Present: normal inspection, full ROM. Absent: tenderness, meningismus - Respiratory Respiratory exam: Present: wheezes, rales, decreased breath sounds. Absent: rhonchi, stridor, accessory muscle use, prolonged expiratory - Cardiovascular Cardiovascular Exam: Present: tachycardia - GI/Abdominal GI/Abdominal exam: Present: soft, normal bowel sounds. Absent: distended, tenderness, guarding, rebound, rigid, organomegaly, mass, bruit, pulsatile mass , hernia - Extremities Exam Extremities exam: Present: normal inspection, full ROM, normal capillary refill , pedal edema. Absent: calf tenderness - Back Exam Back exam: Present: normal inspection, full ROM. Absent: tenderness, CVA tenderness (R), CVA tenderness (L) - Neurological Exam Neurological exam: Present: alert, oriented X3, CN II-XII intact - Skin Skin exam: Present: warm, intact, normal color ED Course Vital Signs 12/12/17 12/12/17 12/12/17 17:59 21:06 21:11 Temperature 99.5 F 99.7 F H Pulse Rate 113 H 113 H Pulse Rate [ Anterior] Respiratory 20 20 20 Rate Respiratory Rate [Anterior] Blood Pressure 142/106 Blood Pressure 133/91 [Right] O2 Sat by Pulse 92 98 98 Oximetry 12/12/17 21:46 Temperature Pulse Rate Pulse Rate [ 89 Anterior] Respiratory Rate Respiratory 17 Rate [Anterior] Blood Pressure Blood Pressure [Right] O2 Sat by Pulse Oximetry ED Medical Decision Making - Lab Data Result diagrams: 12/12/17 18:13 12/12/17 18:13 - EKG Data -: EKG Interpreted by Ne EKG shows normal: sinus rhythm Rate: tachycardia - EKG Data Interpretation: no acute changes - Radiology Data Radiology results: report reviewed Referring Physician: ED DOC Patient Name: PAUL HARVEY Date of : 1975 Sex: Male Report Date: 2017-12-12 Report Status: Finalized Findings [facility] [address] [place] [address] XRay Report Signed Patient: PAUL HARVEY MR#: [id number] : 1975 Acct:[id number] Age/Sex: 42 / M ADM Date: 12/12/17 Loc: ED Attending Dr: Ordering Physician: ED DOC, Date of Service: 12/12/17 Procedure(s): XR chest routine 2V Accession Number(s): [id number] cc: ED MD LEONA Fluoro Time In Minutes: FINAL REPORT PROCEDURE: XR CHEST ROUTINE 2V TECHNIQUE: PA and lateral chest radiographs were obtained. CPT 37643 HISTORY: Shortness of breath COMPARISON: 12/10/2017 FINDINGS: Heart: Mild cardiomegaly is noted. Mediastinum/Vessels: Normal. Lungs/Pleural space: Subsegmental atelectatic changes in the left perihilar region again identified without change. Bony thorax: No acute osseous abnormality. Other: A bipolar cardiac device is noted on the left side with its leads in place IMPRESSION: No acute pulmonary process Mild cardiomegaly. Transcribed By: [facility] [place]ictated By: REN VILLEGAS Electronically Authenticated By: REN VILLEGAS Signed Date/Time: 12/12/171854 DD/ 54 TD/TT: 12/12/171854 - Medical Decision Making I discussed with Dr. Peterson, I presented the patient to him, he agreed to admit the patient to his service. Critical care attestation.: If time is entered above; I have spent that time in minutes in the direct care of this critically ill patient, excluding procedure time. ED Disposition Clinical Impression: Acute CHF (congestive heart failure), Acute bronchitis Disposition: OP ADMIT IP TO THIS HOSP Is pt being admited?: Yes Condition: Stable Instructions: Acute Bronchitis (ED) Referrals: PRIMARY CARE, [Primary Care Provider] - 3-5 Days
[2017-12-12] MEDS ORDERED: XOPENEX IH PRN (22:52)
[2017-12-12] MEDS ORDERED: TYLENOL PO PRN (22:55)
[2017-12-12] MEDS ORDERED: ZOFRAN IV PRN (23:10)
[2017-12-12] MEDS ORDERED: PROVENTIL IH PRN (23:43)
--- NOTE | 2017-12-12 23:58 | History and Physical Report ---
CHIEF COMPLAINT: Shortness of breath. Other complaint includes cough, body ache, and low grade fever. HISTORY OF PRESENT ILLNESS: The patient is a 42-year-old man, who complains of shortness of breath going on for few days associated with fever, cough productive of white sputum and also there is history of nausea, but no vomiting. The patient was seen in this hospital about 3 days ago and diagnosed with acute bronchitis and started on Levaquin but he said his symptoms continued to get worse and came back with shortness of breath, cough, body ache, and low oxygen saturation and was evaluated in the Emergency Room and recommended for admission. PAST MEDICAL HISTORY: His past medical history is pertinent for hypertension, congestive heart failure, liver disease. PAST SURGICAL HISTORY: Past surgical history is pertinent for open heart surgery, pacemaker placement. FAMILY HISTORY: Noncontributory. SOCIAL HISTORY: The patient smokes cigarettes but does not use illicit drugs and does not drink alcohol. MEDICATIONS: The patient is on carvedilol 6.25 mg by mouth twice daily, lisinopril 5 mg by mouth daily, potassium chloride 10 mEq by mouth daily, hydralazine 75 mg by mouth every 8 hours, albuterol inhaler 2 puffs q.i.d. p.r.n. shortness of breath, Silt 5/325 mg by mouth every 6 hours as needed for pain, prednisone 20 mg by mouth daily, furosemide 80 mg by mouth daily, Coumadin 10 mg by mouth daily. ALLERGIES: There are no known drug allergies. REVIEW OF SYSTEMS: CONSTITUTIONAL: There is fever, but no chills, no diaphoresis. HEENT: There is no headache or sore throat. CARDIOVASCULAR SYSTEM: There is no chest pain or orthopnea. RESPIRATORY SYSTEM: Shortness of breath is present. Cough is present. GASTROINTESTINAL SYSTEM: There is nausea, but no vomiting, no abdominal pain, diarrhea or constipation. NEUROLOGICAL SYSTEM: There is no numbness, no dizziness, no altered mental status. MUSCULOSKELETAL SYSTEM: There is generalized body pain with no muscle swelling. DERMATOLOGICAL SYSTEM: There is no skin rash or itching. GENITOURINARY SYSTEM: There is no dysuria, hematuria, or flank pain. Rest of system review is normal. PHYSICAL EXAMINATION: GENERAL: At the time of examination, the patient was found to be alert, oriented x 3 and not in acute distress. VITAL SIGNS: Shows temperature of 99.7 degrees Fahrenheit, pulse of 113, respiration 20, blood pressure 133/91, O2 sat of 98% on room air. HEENT: Examination showed pupils to be equal, round, and reactive to light and accommodation. Extraocular muscles are intact. NECK: Supple with no JVD or carotid bruit CARDIOVASCULAR SYSTEM: Showed normal first and second heart sounds with no gallops or murmur. RESPIRATORY SYSTEM: Showed good air entry on both sides of the lung with mild expiratory wheezing. GASTROINTESTINAL SYSTEM: Showed abdomen to be full, soft, nontender with no organomegaly or rigidity. NEUROLOGICAL: Examination shows with focal deficits. MUSCULOSKELETAL SYSTEM: Showed no joint swelling or tenderness. DERMATOLOGICAL SYSTEM: Showed no skin rash. GENITOURINARY SYSTEM: Showing no costovertebral angle tenderness. PERTINENT LABORATORY AND IMAGING STUDIES: The patient's chest x-ray done that showed mild cardiomegaly. Lab results shows CBC with normal white count, normal hemoglobin and hematocrit with CBC differential showing elevated segmented neutrophil of 76.3% with no significant band and also the patient has elevated monocyte count of 11.1. Coagulation studies show elevated PT of 26.3 with elevated INR of 2.24 and high PTT of 40.5. The patient's chemistry was unremarkable except for elevated brain natriuretic peptide of 3242. DIAGNOSES: 1. Acute bronchitis. 2. Congestive heart failure exacerbation. PLAN: The patient will be admitted to medical floor on telemetry and will be on IV ceftriaxone 1 gram daily for treatment of acute bronchitis. Also, the patient will be on IV Zithromax 500 mg daily and also the patient will be on Robitussin 200 mg by mouth every 4 hours as needed for cough and the patient will be on Tylenol 650 mg every 6 hours for fever, headache and for CHF exacerbation the patient will be on IV Lasix 40 mg daily and will also be on Xopenex breathing treatment every 6 hours as needed for wheezing and shortness of breath. The patient will also be on Zofran 4 mg IV every 6 hours as needed for nausea and vomiting and the patient's home medications will be reconciled and started accordingly. JOB# [id number] OCN/NTS
[2017-12-13] MEDS: ROBITUSSIN PO PRN ×2 (01:18→09:43)
[2017-12-13] MEDS ORDERED: NORCO 5/325 PO PRN (08:40)
[2017-12-13] MEDS ORDERED: COUMADIN PO SCH (10:00)
[2017-12-13] MEDS ORDERED: COREG PO SCH ×3 (10:00→13:00)
[2017-12-13] MEDS ORDERED: ZESTRIL PO SCH ×2 (10:00→12:16)
[2017-12-13] MEDS ORDERED: LASIX IV SCH (10:00)
[2017-12-13] MEDS ORDERED: ROCEPHIN/NS 1 GM/50 ML 1 GM/50 ML BAG IV SCH (10:00)
[2017-12-13] MEDS ORDERED: ASPIRIN PO SCH (10:00)
[2017-12-13] MEDS ORDERED: ZITHROMAX 500 MG in NACL 0.9% 250ML 250 ML IV SCH (10:00)
[2017-12-13] MEDS: cefTRIAXone 1 GM in NACL 0.9% 20 ML IV SCH (11:07)
--- NOTE | 2017-12-13 11:59 | Consultation ---
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 He is followed in our office by Dr. Jennings. He presented with c/o progressively worsening SOB, fever, chills and cough for 3 days prior to arrival. Pt was recently seen in [facility] ED and diagnosed with acute bronchitis and was prescribed Levaquin but states that his symptoms got worse so he returned to the ED. Patient oxygen saturation in triage was noted to be 91% on room air. CXR with NAF. Influenza negative. He denies any chest pain, palpitations, n/v, diaphoresis, dizziness or syncope. He reports compliance with his medication regimen. INR on admission 2.24. Pro-BNP 3242. Echo done 08/2017 showed mild to mod LVH, EF 25%, RV mildly dilated, RV function mildly to mod reduced, pacemaker in RA and RV, tissue prosthesis in mitral position, no apparent MR, mild to mod AR, mod TR, RVSP 37mmHg. Past History Past Medical History: atrial fib, heart failure (systolic), hypertension Past Surgical History: Other (s/p MV replacement with tissue prosthesis (11/2016) , and TV repair (11/2016), PPM in situ for postoperative CHB,) Medications and Allergies Allergies Allergy/AdvReac Type Severity Reaction Status Date / Time No Known Allergies Allergy Verified 08/18/16 21:37 Home Medications Medication Instructions Recorded Confirmed Last Taken Type Carvedilol [Coreg] 6.25 mg PO BID #60 tablet 12/01/16 12/12/17 Unknown Rx Lisinopril [Zestril TAB] 5 mg PO QDAY #30 tablet 12/01/16 12/12/17 Unknown Rx Potassium Chloride 10 meq PO QDAY #30 capsule.er 12/01/16 12/12/17 Unknown Rx hydrALAZINE [Apresoline TAB] 75 mg PO Q8HR #90 tablet 12/01/16 12/12/17 Unknown Rx Aspirin [Aspirin TAB] 325 mg PO QDAY 12/09/16 12/12/17 Unknown History ALBUTEROL Inhaler [ProAir HFA 2 puff IH QID PRN #1 inhalation 11/26/17 12/12/17 Unknown Rx Inhaler] HYDROcodone/APAP 5-325 [[place] 1 each PO Q6HR PRN #12 tablet 11/26/17 12/12/17 Unknown Rx 5/325] predniSONE [Deltasone] 20 mg PO QDAY #5 tab 11/26/17 12/12/17 Unknown Rx Furosemide [Lasix TAB] 80 mg PO QDAY 12/12/17 12/12/17 Unknown History Warfarin [Coumadin] 10 mg PO QDAY 12/12/17 12/12/17 Unknown History Active Meds: Active Medications Acetaminophen (Tylenol) 650 mg PO Q6H PRN PRN Reason: For Pain/Fever/Headache Last Admin: 12/13/17 01:19 Dose: 650 mg Acetaminophen/Hydrocodone Bitart ([place] 5/325) 1 each PO Q6HR PRN PRN Reason: Pain Albuterol (Proventil) 2.5 mg IH Q4HRT PRN PRN Reason: Wheezing Aspirin (Aspirin) 325 mg PO QDAY [facility] Last Admin: 12/13/17 11:06 Dose: 325 mg Azithromycin (Zithromax) 500 mg PO QDAY [facility] Carvedilol (Coreg) 6.25 mg PO BID [facility] Last Admin: 12/13/17 11:06 Dose: 6.25 mg Furosemide (Lasix) 40 mg IV DAILY [facility] Last Admin: 12/13/17 09:42 Dose: 40 mg Guaifenesin (Robitussin) 200 mg PO Q4H PRN PRN Reason: Cough Last Admin: 12/13/17 09:43 Dose: 200 mg Hydralazine HCl (Apresoline) 75 mg PO Q8HR [facility] Azithromycin 500 mg/ Sodium (Chloride) 250 mls @ 250 mls/hr IV Q24HR [facility] Stop: 12/13/17 23:59 Last Admin: 12/13/17 11:46 Dose: 250 mls/hr Ceftriaxone Sodium 1 gm/ (Sodium Chloride) 20 mls @ 2 mls/min IV Q24HR [facility] Last Admin: 12/13/17 11:07 Dose: 2 mls/min Lisinopril (Zestril) 5 mg PO QDAY [facility] Last Admin: 12/13/17 09:42 Dose: 5 mg Ondansetron HCl (Zofran) 4 mg IV Q6H PRN PRN Reason: Nausea And Vomiting Warfarin Sodium (Coumadin) 10 mg PO QDAY [facility]; Protocol Review of Systems Constitutional: fever, chills, no weight loss, no weight gain Ears, nose, mouth and throat: nasal congestion, no ear pain, no nose pain, no sinus pressure, no sinus pain Cardiovascular: shortness of breath, dyspnea on exertion, high blood pressure, no chest pain, no palpitations, no rapid/irregular heart beat, no syncope, no lightheadedness Respiratory: cough, shortness of breath, dyspnea on exertion, congestion, no wheezing, no pain on inspiration Gastrointestinal: no abdominal pain, no nausea, no vomiting, no diarrhea, no constipation, no change in bowel habits Genitourinary Male: no dysuria, no hematuria, no flank pain, no discharge, no urinary frequency, no urinary hesitancy Musculoskeletal: no neck stiffness, no neck pain, no shooting arm pain, no arm numbness/tingling, no low back pain, no shooting leg pain, no leg numbness/ tingling, no redness of joints Integumentary: no rash, no pruritis, no redness, no sores, no wounds Neurological: no head injury, no seizures, no syncope Psychiatric: no anxiety Endocrine: no cold intolerance, no heat intolerance Hematologic/Lymphatic: no easy bruising, no easy bleeding, no lymphadenopathy Allergic/Immunologic: no urticaria, no wheezing Physical Examination Vital Signs Temp Pulse Resp BP Pulse Ox 99.5 F 113 H 20 142/106 92 12/12/17 17:59 12/12/17 17:59 12/12/17 17:59 12/12/17 17:59 12/12/17 17:59 General appearance: no acute distress HEENT: Positive: PERRL, Normocephaly, Mucus Membranes Moist Neck: Positive: neck supple, trachea midline Cardiac: Positive: S1/S2, Tachycardia Lungs: Positive: Decreased Breath Sounds Neuro: Positive: Grossly Intact Abdomen: Positive: Soft. Negative: Tender Skin: Negative: Rash Musculoskeletal: No Pain, Normal Range of Motion Extremities: Absent: edema Results 12/12/17 18:13 12/12/17 18:13 Coagulation 12/12/17 Range/Units 18:26 PT 26.3 H (12.2-14.9) Sec. INR 2.24 H (0.87-1.13) APTT 40.5 H (24.2-36.6) Sec. CBC 12/12/17 Range/Units 18:13 WBC 9.1 (4.5-11.0) K/mm3 RBC 4.48 (3.65-5.03) M/mm3 Hgb 12.8 (11.8-15.2) gm/dl Hct 39.2 (35.5-45.6) % Plt Count 308 (140-440) K/mm3 Lymph # 1.0 L (1.2-5.4) K/mm3 [place] # 1.0 H (0.0-0.8) K/mm3 Eos # 0.0 (0.0-0.4) K/mm3 Baso # 0.1 (0.0-0.1) K/mm3 Comprehensive Metabolic Panel 12/12/17 Range/Units 18:13 Sodium 138 (137-145) mmol/L Potassium 3.7 (3.6-5.0) mmol/L Chloride 94.8 L (98-107) mmol/L Carbon Dioxide 30 (22-30) mmol/L BUN 18 (9-20) mg/dL Creatinine 1.4 (0.8-1.5) mg/dL Glucose 109 H (75-100) mg/dL Calcium 8.6 (8.4-10.2) mg/dL - Imaging and Cardiology Echo: report reviewed (08/2017 showed mild to mod LVH, EF 25%, RV mildly dilated , RV function mildly to mod reduced, pacemaker in RA and RV, tissue prosthesis in mitral position, no apparent MR, mild to mod AR, mod TR, RVSP 37mmHg. 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 No current clinical evidence of acutely decompensated HF. Resume home cardiac regimen. Influenza negative. Pt pending eval per Dr. Fuentes as OP for possible AICD upgrade. Assessment and plan reviewed with pt at bedside. The patient has been seen in conjunction with Dr. Coleman who agrees with the assessment and plan of care.
--- NOTE | 2017-12-13 13:27 | Progress Note ---
Assessment and Plan Assessment and plan: Patient is 42 years old male history of congestive heart failure, pacemaker, hypertension, liver disease. Patient presented with fever cough, shortness of breath nausea for 1 week. Patient was seen here 3 days ago diagnoses acute bronchitis received Levaquin but he stated that his symptoms suggest getting worse. Acute bronchitis Continue IV abx, Robitussin AC initiated PRN for cough Chronic systolic heart failure Continue outpatient cardiac regimen HTN Continue antihypertensives, Hydralazine PRN Paroxysmal A fib Continue Coumadin DVT Prophylaxis On Coumadin History Interval history: Pt seen and examined. Continues to complain of cough which is hurting stomach. He denies any new complaints at this time labs and nursing notes reviewed. Hospitalist Physical - Constitutional Vitals: Temp Pulse Resp BP Pulse Ox 99.3 F 104 H 18 101/74 92 12/13/17 09:07 12/13/17 11:39 12/13/17 09:07 12/13/17 11:39 12/13/17 11:39 General appearance: Present: no acute distress, well-nourished - EENT Eyes: Present: PERRL, EOM intact ENT: hearing intact, clear oral mucosa - Neck Neck: Present: supple, normal ROM - Respiratory Respiratory effort: normal Respiratory: bilateral: CTA - Cardiovascular Rhythm: regular Heart Sounds: Present: S1 & S2 - Extremities Extremities: no ischemia, No edema - Abdominal General gastrointestinal: soft, tender, non-distended - Integumentary Integumentary: Present: clear, warm, dry - Psychiatric Psychiatric: appropriate mood/affect, intact judgment & insight, cooperative - Neurologic Neurologic: CNII-XII intact, moves all extremities - Allied Health Allied health notes reviewed: nursing Results - Labs CBC & Chem 7: 12/12/17 18:13 12/12/17 18:13 Labs: Laboratory Last Values WBC 9.1 K/mm3 (4.5-11.0) 12/12/17 18:13 RBC 4.48 M/mm3 (3.65-5.03) 12/12/17 18:13 Hgb 12.8 gm/dl (11.8-15.2) 12/12/17 18:13 Hct 39.2 % (35.5-45.6) 12/12/17 18:13 MCV 88 fl (84-94) 12/12/17 18:13 MCH 29 pg (28-32) 18 18:13 MCHC 33 % (32-34) 12/12/17 18:13 RDW 17.5 % (13.2-15.2) H 12/12/17 18:13 Plt Count 308 K/mm3 (140-440) 18 18:13 Lymph % (Auto) 11.4 % (13.4-35.0) L 12/12/17 18:13 [place] % (Auto) 11.1 % (0.0-7.3) H 12/12/17 18:13 Eos % (Auto) 0.2 % (0.0-4.3) 12/12/17 18:13 Baso % (Auto) 1.0 % (0.0-1.8) 12/12/17 18:13 Lymph # 1.0 K/mm3 (1.2-5.4) L 12/12/17 18:13 [place] # 1.0 K/mm3 (0.0-0.8) H 12/12/17 18:13 Eos # 0.0 K/mm3 (0.0-0.4) 12/12/17 18:13 Baso # 0.1 K/mm3 (0.0-0.1) 12/12/17 18:13 Seg Neutrophils % 76.3 % (40.0-70.0) H 18 18:13 Seg Neutrophils # 6.9 K/mm3 (1.8-7.7) 18 18:13 PT 26.3 Sec. (12.2-14.9) H 12/12/17 18:26 INR 2.24 (0.87-1.13) H 18 18:26 APTT 40.5 Sec. (24.2-36.6) H 12/12/17 18:26 Sodium 138 mmol/L (137-145) 12/12/17 18:13 Potassium 3.7 mmol/L (3.6-5.0) 12/12/17 18:13 Chloride 94.8 mmol/L (98-107) L 18 18:13 Carbon Dioxide 30 mmol/L (22-30) 18 18:13 Anion Gap 17 mmol/L 12/12/17 18:13 BUN 18 mg/dL (9-20) 12/12/17 18:13 Creatinine 1.4 mg/dL (0.8-1.5) 12/12/17 18:13 Estimated GFR > 60 ml/min 12/12/17 18:13 BUN/Creatinine Ratio 13 % 12/12/17 18:13 Glucose 109 mg/dL (75-100) H 12/12/17 18:13 Calcium 8.6 mg/dL (8.4-10.2) 12/12/17 18:13 Troponin T < 0.010 ng/mL (0.00-0.029) 12/12/17 18:13 NT-Pro-B Natriuret Pep 3242 pg/mL (0-450) H 12/12/17 18:13 Influenza A (Rapid) Negative (Negative) 12/13/17 Unknown Influenza B (Rapid) Negative (Negative) 12/13/17 Unknown
[2017-12-13] MEDS: ZESTRIL PO SCH (14:18)
[2017-12-13] MEDS: APRESOLINE PO SCH ×2 (14:19→21:37)
[2017-12-13] MEDS: COUMADIN PO SCH (16:31)
[2017-12-13] MEDS: ROBITUSSIN AC PO PRN ×2 (16:47→21:38)
[2017-12-13] MEDS: HABITROL TD SCH (16:47)
[2017-12-13] MEDS: COREG PO SCH (21:37)
[2017-12-14] MEDS: APRESOLINE PO SCH ×3 (05:13→22:14)
[2017-12-14] MEDS: LASIX PO SCH (05:13)
[2017-12-14] MEDS: ROBITUSSIN AC PO PRN (05:14)
[2017-12-14 06:00] LABS: INR 1.81 (0.87-1.13)
[2017-12-14] MEDS: ZITHROMAX PO SCH (09:55)
[2017-12-14] MEDS: BABY ASPIRIN PO SCH (09:55)
[2017-12-14] MEDS: COREG PO SCH ×3 (11:51→22:14)
[2017-12-14] MEDS: ZESTRIL PO SCH (11:52)
[2017-12-14] MEDS: cefTRIAXone 1 GM in NACL 0.9% 20 ML IV SCH (12:07)
--- NOTE | 2017-12-14 12:15 | Progress Note ---
<ODETTE ACEVEDO - Last Filed: 12/14/17 14:08> Assessment and Plan Assessment and plan: Patient is 42 years old male history of congestive heart failure, pacemaker, hypertension, liver disease. Patient presented with fever cough, shortness of breath nausea for 1 week. Patient was seen here 3 days ago diagnoses acute bronchitis received Levaquin but he stated that his symptoms suggest getting worse. Acute bronchitis Continue IV abx, continue Robitussin AC PRN for cough Pt initiated on IV steroids Chronic systolic heart failure Continue outpatient cardiac regimen HTN Continue antihypertensives, Hydralazine PRN Paroxysmal A fib Continue Coumadin Elevated D dimer CTA chest ordered DVT Prophylaxis On Coumadin History Interval history: Pt seen and examined. Continues to complain of cough. He denies any new complaints at this time labs and nursing notes reviewed. Hospitalist Physical - Constitutional Vitals: Temp Pulse Resp BP Pulse Ox 98.1 F 76 16 109/69 93 12/14/17 07:26 12/14/17 11:52 12/14/17 07:26 12/14/17 11:52 12/14/17 07:26 General appearance: Present: no acute distress, well-nourished - EENT Eyes: Present: PERRL, EOM intact ENT: hearing intact, clear oral mucosa - Neck Neck: Present: supple, normal ROM - Respiratory Respiratory effort: normal Respiratory: bilateral: CTA - Cardiovascular Rhythm: regular Heart Sounds: Present: S1 & S2 - Extremities Extremities: no ischemia, pulses intact, No edema - Abdominal General gastrointestinal: soft, tender, non-distended - Integumentary Integumentary: Present: clear, warm, dry - Psychiatric Psychiatric: appropriate mood/affect, intact judgment & insight, cooperative - Neurologic Neurologic: CNII-XII intact, moves all extremities - Allied Health Allied health notes reviewed: nursing Results - Labs CBC & Chem 7: 12/12/17 18:13 12/12/17 18:13 Labs: Laboratory Last Values WBC 9.1 K/mm3 (4.5-11.0) 12/12/17 18:13 RBC 4.48 M/mm3 (3.65-5.03) 12/12/17 18:13 Hgb 12.8 gm/dl (11.8-15.2) 12/12/17 18:13 Hct 39.2 % (35.5-45.6) 18 18:13 MCV 88 fl (84-94) 18 18:13 MCH 29 pg (28-32) 12/12/17 18:13 MCHC 33 % (32-34) 12/12/17 18:13 RDW 17.5 % (13.2-15.2) H 18 18:13 Plt Count 308 K/mm3 (140-440) 12/12/17 18:13 Lymph % (Auto) 11.4 % (13.4-35.0) L 12/12/17 18:13 [place] % (Auto) 11.1 % (0.0-7.3) H 12/12/17 18:13 Eos % (Auto) 0.2 % (0.0-4.3) 12/12/17 18:13 Baso % (Auto) 1.0 % (0.0-1.8) 12/12/17 18:13 Lymph # 1.0 K/mm3 (1.2-5.4) L 12/12/17 18:13 [place] # 1.0 K/mm3 (0.0-0.8) H 12/12/17 18:13 Eos # 0.0 K/mm3 (0.0-0.4) 12/12/17 18:13 Baso # 0.1 K/mm3 (0.0-0.1) 12/12/17 18:13 Seg Neutrophils % 76.3 % (40.0-70.0) H 18 18:13 Seg Neutrophils # 6.9 K/mm3 (1.8-7.7) 12/12/17 18:13 PT 22.1 Sec. (12.2-14.9) H 12/14/17 04:34 INR 1.81 (0.87-1.13) H 12/14/17 04:34 APTT 40.5 Sec. (24.2-36.6) H 18 18:26 Sodium 138 mmol/L (137-145) 12/12/17 18:13 Potassium 3.7 mmol/L (3.6-5.0) 12/12/17 18:13 Chloride 94.8 mmol/L (98-107) L 12/12/17 18:13 Carbon Dioxide 30 mmol/L (22-30) 12/12/17 18:13 Anion Gap 17 mmol/L 12/12/17 18:13 BUN 18 mg/dL (9-20) 12/12/17 18:13 Creatinine 1.4 mg/dL (0.8-1.5) 12/12/17 18:13 Estimated GFR > 60 ml/min 12/12/17 18:13 BUN/Creatinine Ratio 13 % 12/12/17 18:13 Glucose 109 mg/dL (75-100) H 12/12/17 18:13 Calcium 8.6 mg/dL (8.4-10.2) 12/12/17 18:13 Troponin T < 0.010 ng/mL (0.00-0.029) 12/12/17 18:13 NT-Pro-B Natriuret Pep 3242 pg/mL (0-450) H 12/12/17 18:13 Influenza A (Rapid) Negative (Negative) 12/13/17 Unknown Influenza B (Rapid) Negative (Negative) 12/13/17 Unknown <MEGHAN CASTANON - Last Filed: 12/15/17 07:27> Assessment and Plan Assessment and plan: I saw and evaluated the patient. I agree with the findings and the plan of care as documented in the physician data analysis assistant's~note, with the following corrections and additions. Mr. Cueva reports a sense of history of tobacco use or repeat in about 2 weeks ago. We'll add steroids to his medication treatment as he does have multiple wheeze. Patient encouraged to ambulate. Will anticipate discharge in a.m. Hospitalist Physical - Constitutional Vitals: Temp Pulse Resp BP Pulse Ox 97.2 F L 80 18 121/68 93 12/15/17 04:43 12/15/17 05:11 12/15/17 04:43 12/15/17 06:15 12/15/17 04:43 Results - Labs CBC & Chem 7: 12/12/17 18:13 12/12/17 18:13 Labs: Laboratory Last Values WBC 9.1 K/mm3 (4.5-11.0) 12/12/17 18:13 RBC 4.48 M/mm3 (3.65-5.03) 12/12/17 18:13 Hgb 12.8 gm/dl (11.8-15.2) 12/12/17 18:13 Hct 39.2 % (35.5-45.6) 12/12/17 18:13 MCV 88 fl (84-94) 12/12/17 18:13 MCH 29 pg (28-32) 12/12/17 18:13 MCHC 33 % (32-34) 12/12/17 18:13 RDW 17.5 % (13.2-15.2) H 12/12/17 18:13 Plt Count 308 K/mm3 (140-440) 12/12/17 18:13 Lymph % (Auto) 11.4 % (13.4-35.0) L 12/12/17 18:13 [place] % (Auto) 11.1 % (0.0-7.3) H 12/12/17 18:13 Eos % (Auto) 0.2 % (0.0-4.3) 12/12/17 18:13 Baso % (Auto) 1.0 % (0.0-1.8) 12/12/17 18:13 Lymph # 1.0 K/mm3 (1.2-5.4) L 12/12/17 18:13 [place] # 1.0 K/mm3 (0.0-0.8) H 12/12/17 18:13 Eos # 0.0 K/mm3 (0.0-0.4) 12/12/17 18:13 Baso # 0.1 K/mm3 (0.0-0.1) 12/12/17 18:13 Seg Neutrophils % 76.3 % (40.0-70.0) H 12/12/17 18:13 Seg Neutrophils # 6.9 K/mm3 (1.8-7.7) 12/12/17 18:13 PT 26.3 Sec. (12.2-14.9) H 12/15/17 05:04 INR 2.24 (0.87-1.13) H 12/15/17 05:04 APTT 40.5 Sec. (24.2-36.6) H 12/12/17 18:26 D-Dimer 545.70 ng/mlDDU (0-234) H 12/14/17 12:26 Sodium 138 mmol/L (137-145) 12/12/17 18:13 Potassium 3.7 mmol/L (3.6-5.0) 12/12/17 18:13 Chloride 94.8 mmol/L (98-107) L 12/12/17 18:13 Carbon Dioxide 30 mmol/L (22-30) 12/12/17 18:13 Anion Gap 17 mmol/L 12/12/17 18:13 BUN 18 mg/dL (9-20) 12/12/17 18:13 Creatinine 1.4 mg/dL (0.8-1.5) 12/12/17 18:13 Estimated GFR > 60 ml/min 12/12/17 18:13 BUN/Creatinine Ratio 13 % 12/12/17 18:13 Glucose 109 mg/dL (75-100) H 12/12/17 18:13 POC Glucose 89 (70-105) 12/14/17 16:34 Calcium 8.6 mg/dL (8.4-10.2) 12/12/17 18:13 Troponin T < 0.010 ng/mL (0.00-0.029) 12/12/17 18:13 NT-Pro-B Natriuret Pep 3242 pg/mL (0-450) H 12/12/17 18:13 Influenza A (Rapid) Negative (Negative) 12/13/17 Unknown Influenza B (Rapid) Negative (Negative) 12/13/17 Unknown
--- NOTE | 2017-12-14 15:27 | Progress Note ---
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 Nothing further to add from cardiac perspective at this time. Will sign off. Pt pending eval per Dr. Fuentes as OP for possible AICD upgrade. Recommend follow up in our office with Dr. Jennings within 1-2 weeks of hospital discharge ([phone]). Assessment and plan reviewed with pt at bedside. The patient has been seen in conjunction with Dr. Coleman who agrees with the assessment and plan of care. Subjective Date of service: 12/14/17 Principal diagnosis: acute bronchitis Interval history: pt continues to have cough, no current cardiac complaints. Objective Last Vital Signs Temp 98.6 F 12/14/17 11:48 Pulse 76 12/14/17 11:52 Resp 18 12/14/17 11:48 BP 109/69 12/14/17 11:52 Pulse Ox 84 12/14/17 11:48 - Physical Examination General: No Apparent Distress HEENT: Positive: PERRL, Normocephaly, Mucus Membranes Moist Neck: Positive: neck supple, trachea midline Cardiac: Positive: Reg Rate and Rhythm, S1/S2 Lungs: Positive: Decreased Breath Sounds Neuro: Positive: Grossly Intact Abdomen: Positive: Soft. Negative: Tender Skin: Negative: Rash Musculoskeletal: No Pain, Normal Range of Motion Extremities: Absent: edema - Labs and Meds Coagulation 12/14/17 Range/Units 04:34 PT 22.1 H (12.2-14.9) Sec. INR 1.81 H (0.87-1.13) - Imaging and Cardiology EKG: report reviewed, image reviewed Echo: report reviewed (08/2017 showed mild to mod LVH, EF 25%, RV mildly dilated , RV function mildly to mod reduced, pacemaker in RA and RV, tissue prosthesis in mitral position, no apparent MR, mild to mod AR, mod TR, RVSP 37mmHg. ) Pacemaker: ventricular pacing w/capt
--- NOTE | 2017-12-14 18:12 | Cat Scan Report ---
FINAL REPORT EXAM: CT ANGIO CHEST HISTORY: elevated D dimer TECHNIQUE: CTA of the chest was performed after the administration of intravenous contrast. Reconstructions were included in the coronal and sagittal planes. Rotating MIPS were included. PRIORS: None. FINDINGS: Pulmonary arteries and thoracic aorta: The study is adequate for diagnostic purposes. No central or segmental pulmonary embolism. The thoracic aorta is normal in caliber. Median sternotomy wires are present. A left chest pacemaker is present. Lungs and airways: No pleural effusion. The airways are patent. No bronchiectasis. Extensive bilateral ground-glass nodular opacities are seen throughout the lungs. Interlobular septal thickening is seen. Mediastinum, heart, pericardium: Several prominent mediastinal and hilar lymph nodes are likely reactive. There is multi chamber cardiac enlargement. No pericardial effusion. Thoracic inlet, chest wall, axilla: No chest wall masses. The visualized portions of the thyroid gland demonstrate no focal lesion. No axillary lymphadenopathy. Upper abdomen: The visualized structures demonstrate no specific abnormality. Bones: No acute or chronic osseous finding. IMPRESSION: 1. No central or segmental pulmonary embolism. 2. Pulmonary findings most likely represents atypical pneumonia such as fungal pneumonia. Tuberculosis is not excluded. Given the nodular appearance of the opacities, recommend followup chest CT 3-6 months to confirm resolution. 3. Multi chamber cardiac enlargement.
[2017-12-14] MEDS: COUMADIN PO SCH (18:19)
[2017-12-14] MEDS: HABITROL TD SCH (18:20)
[2017-12-15] MEDS: LASIX PO SCH (06:11)
[2017-12-15] MEDS: APRESOLINE PO SCH (06:15)
[2017-12-15 06:26] LABS: INR 2.24 (0.87-1.13)
[2017-12-15] MEDS: ZITHROMAX PO SCH (09:34)
[2017-12-15] MEDS: BABY ASPIRIN PO SCH (09:34)
[2017-12-15] MEDS: COREG PO SCH (09:34)
[2017-12-15] MEDS: ZESTRIL PO SCH (09:35)
[2017-12-15 09:42] VITALS: BP 137/89
[2017-12-15] MEDS: cefTRIAXone 1 GM in NACL 0.9% 20 ML IV SCH (09:42)
--- NOTE | 2017-12-15 10:30 | Discharge Summary ---
Providers - Providers Date of Admission: 12/12/17 22:43 Date of discharge: 12/15/17 Attending physician: MEGHAN CASTANON MD 12/13/17 10:20 Consult to Physician [CONS] Routine Comment: Consulting Provider: FIDEL DOMÍNGUEZ Physician Instructions: Reason For Exam: CHF/ Cardiomyopathy Primary care physician: GABRIELLE SUBRAMANIAN MD Hospitalization Condition: Stable Disposition: DC-01 TO HOME OR SELFCARE Time spent for discharge: 32 minutes Core Measure Documentation - Palliative Care Palliative Care/ Comfort Measures: Not Applicable - Core Measures Any of the following diagnoses?: none Exam - Constitutional Vitals: Temp Pulse Resp BP Pulse Ox 97.8 F 86 18 137/89 92 12/15/17 08:21 12/15/17 08:21 12/15/17 08:21 12/15/17 08:21 12/15/17 08:21 General appearance: Present: no acute distress, well-nourished - EENT Eyes: Present: PERRL ENT: hearing intact, clear oral mucosa - Neck Neck: Present: supple, normal ROM - Respiratory Respiratory effort: normal Respiratory: bilateral: wheezing - Cardiovascular Heart Sounds: Present: S1 & S2. Absent: rub, click - Extremities Extremities: no ischemia, pulses symmetrical, No edema Peripheral Pulses: within normal limits - Abdominal General gastrointestinal: Present: soft, non-tender, non-distended, normal bowel sounds Male genitourinary: Present: deferred - Integumentary Integumentary: Present: clear, warm, dry - Musculoskeletal Musculoskeletal: gait normal, strength equal bilaterally - Psychiatric Psychiatric: appropriate mood/affect, intact judgment & insight - Neurologic Neurologic: CNII-XII intact, moves all extremities Plan Follow up with: PRIMARY CAREMD [Primary Care Provider] - 3-5 Days Forms: Warfarin Discharge Instruction Prescriptions: Carvedilol [Coreg] 12.5 mg PO BID #60 tablet guaiFENesin/CODEINE [Robitussin AC] 10 ml PO Q4H PRN #1 bottle PRN Reason: Cough Lisinopril [Zestril TAB] 20 mg PO QDAY #30 tablet Nicotine [Habitrol] 7 mg TD Q24H #14 patch predniSONE [Deltasone] 10 mg PO .TAPER #21 tab
== END 2017-12-15 13:00 | disposition home or self-care (01) | DRG 202 ==
LOC: ED 17:54 → 4A 22:43
PROVIDERS: ADMIT Internal Medicine; ATTEND Internal Medicine
DX: J20.9 Acute bronchitis, unspecified (principal); I50.23 Acute on chronic systolic (congestive) heart failure; I42.8 Other cardiomyopathies; I11.0 Hypertensive heart disease with heart failure; Z95.0 Presence of cardiac pacemaker; F17.210 Nicotine dependence, cigarettes, uncomplicated; Z95.2 Presence of prosthetic heart valve; I48.0 Paroxysmal atrial fibrillation; Z91.14 Patient's other noncompliance with medication regimen; Z79.01 Long term (current) use of anticoagulants; Z71.6 Tobacco abuse counseling
CPT/HCPCS: 36415; 71046; 71275; 80048; 82962; 83880; 84484; 85025; 85379; 85610; 85730; 87040; 87400; 93005; 93010; 94640; 96365; 96366; 96375; 99406; J0456; J0696; J1940; J2405; J2920; J7050; Q9967

== ENCOUNTER 2017-12-26 23:23 | Emergency (ER) | payer SELFPAY ==
[2017-12-26] MEDS ORDERED: ASPIRIN PO ONE (23:52)
[2017-12-27 00:09] LABS: Basophils # (Auto) 0.1 K/mm3 (0.0-0.1); Basophils % (Auto) 1.5 % (0.0-1.8); Eosinophils # (Auto) 0.1 K/mm3 (0.0-0.4); Hematocrit 36.7 % (35.5-45.6); Hemoglobin 12.3 gm/dl (11.8-15.2); Lymphocytes # (Auto) 1.9 K/mm3 (1.2-5.4); Lymphocytes % (Auto) 22.3 % (13.4-35.0); Mean Corpuscular HGB Conc 34 % (32-34); Mean Corpuscular Hemoglobin 29 pg (28-32); Mean Corpuscular Volume 85 fl (84-94); Monocytes % (Auto) 11.6 % (0.0-7.3); Platelet Count 328 K/mm3 (140-440); Red Cell Distribution Width 17.6 % (13.2-15.2)
--- NOTE | 2017-12-27 00:30 | XRay Report ---
FINAL REPORT PROCEDURE: XR CHEST ROUTINE 2V TECHNIQUE: PA and lateral chest radiographs were obtained. CPT 90435 HISTORY: SOB COMPARISON: 12/12/2017 FINDINGS: Heart: Heart size is slightly pronounced. Multiple sternal wires are present. There is a cardiac pacemaker with the battery in the left chest wall. Mediastinum/Vessels: Normal. Lungs/Pleural space: Normal. Bony thorax: No acute osseous abnormality. Other: IMPRESSION: There is no evidence of an acute cardiopulmonary process..
[2017-12-27 01:34] LABS: Alanine Aminotransferase 36 units/L (7-56); Albumin 3.7 g/dL (3.9-5); BUN/Creatinine Ratio 17; Blood Urea Nitrogen 20 mg/dL (9-20); Calcium 8.3 mg/dL (8.4-10.2); Hemolysis Index 21; Lipase 32 units/L (13-60)
[2017-12-27] MEDS ORDERED: ZOFRAN IV ONE (09:07)
[2017-12-27] MEDS ORDERED: LASIX IV ONE (09:07)
[2017-12-27] MEDS ORDERED: MORPHINE IV ONE (09:07)
--- NOTE | 2017-12-27 09:12 | Emergency Department Report ---
ED Abdominal Pain HPI - General Chief Complaint: Chest Pain Stated Complaint: CHEST PAIN Time Seen by Provider: 12/27/17 08:56 Source: patient Mode of arrival: Ambulatory Limitations: No Limitations - History of Present Illness Initial Comments: Mr. Cueva is a 42-year-old male with history of congestive heart failure. He presents with 1 week of right flank pain RUQ right lower quadrant pain. Pain radiates to the left chest. Pain in left chest has also been constant for one week. +nonproductive cough He has mild soreness of breath. He has lower extremity swelling. He has 15 pounds weight gain. He denies nausea. Denies vomiting. He denies diarrhea. Denies fever. MD Complaint: abdominal pain, flank pain -: week(s) (1) Location: RUQ, RLQ, R flank Radiation: none Migration to: no migration Severity: moderate Severity scale (0 -10): 5 Quality: cramping, sharp Consistency: constant - Related Data Home Medications Medication Instructions Recorded Confirmed Last Taken Aspirin [Aspirin TAB] 325 mg PO QDAY 12/09/16 12/12/17 Unknown Furosemide [Lasix TAB] 80 mg PO QDAY 12/12/17 12/12/17 Unknown Warfarin [Coumadin] 10 mg PO QDAY 12/12/17 12/12/17 Unknown Previous Rx's Medication Instructions Recorded Last Taken Type Potassium Chloride 10 meq PO QDAY #30 capsule.er 12/01/16 Unknown Rx hydrALAZINE [Apresoline TAB] 75 mg PO Q8HR #90 tablet 12/01/16 Unknown Rx ALBUTEROL Inhaler [ProAir HFA 2 puff IH QID PRN #1 inhalation 11/26/17 Unknown Rx Inhaler] HYDROcodone/APAP 5-325 [Natalia 1 each PO Q6HR PRN #12 tablet 11/26/17 Unknown Rx 5-325 mg TAB] predniSONE [Deltasone] 20 mg PO QDAY #5 tab 11/26/17 Unknown Rx Carvedilol [Coreg] 12.5 mg PO BID #60 tablet 12/15/17 Unknown Rx Furosemide [Lasix TAB] 80 mg PO QDAY@0600 tablet 12/15/17 Unknown Rx Lisinopril [Zestril TAB] 20 mg PO QDAY #30 tablet 12/15/17 Unknown Rx Nicotine [Habitrol] 7 mg TD Q24H #14 patch 12/15/17 Unknown Rx guaiFENesin/CODEINE [Robitussin AC] 10 ml PO Q4H PRN #1 bottle 12/15/17 Unknown Rx predniSONE [Deltasone] 10 mg PO .TAPER #21 tab 12/15/17 Unknown Rx HYDROcodone/ACETAMINOPHEN [Natalia 1 each PO Q6H PRN #10 tablet 12/27/17 Unknown Rx 5-325 Tablet] Allergies Allergy/AdvReac Type Severity Reaction Status Date / Time No Known Allergies Allergy Verified 08/18/16 21:37 ED Review of Systems ROS: Stated complaint: CHEST PAIN Other details as noted in HPI Comment: All other systems reviewed and negative Constitutional: malaise. denies: fever Respiratory: cough Cardiovascular: chest pain Gastrointestinal: abdominal pain. denies: vomiting, diarrhea ED Past Medical Hx - Past Medical History Hx Hypertension: Yes Hx Congestive Heart Failure: Yes Hx Diabetes: No Hx Liver Disease: Yes Hx Asthma: No Hx COPD: No - Surgical History Hx Open Heart Surgery: Yes Additional Surgical History: open heart, pacemaker placement - Social History Smoking Status: Former Smoker Substance Use Type: None - Medications Home Medications: Home Medications Medication Instructions Recorded Confirmed Last Taken Type Potassium Chloride 10 meq PO QDAY #30 capsule.er 12/01/16 12/12/17 Unknown Rx hydrALAZINE [Apresoline TAB] 75 mg PO Q8HR #90 tablet 12/01/16 12/12/17 Unknown Rx Aspirin [Aspirin TAB] 325 mg PO QDAY 12/09/16 12/12/17 Unknown History ALBUTEROL Inhaler [ProAir HFA 2 puff IH QID PRN #1 inhalation 11/26/17 12/12/17 Unknown Rx Inhaler] HYDROcodone/APAP 5-325 [Natalia 1 each PO Q6HR PRN #12 tablet 11/26/17 12/12/17 Unknown Rx 5-325 mg TAB] predniSONE [Deltasone] 20 mg PO QDAY #5 tab 11/26/17 12/12/17 Unknown Rx Furosemide [Lasix TAB] 80 mg PO QDAY 12/12/17 12/12/17 Unknown History Warfarin [Coumadin] 10 mg PO QDAY 12/12/17 12/12/17 Unknown History Carvedilol [Coreg] 12.5 mg PO BID #60 tablet 03/21/18 Unknown Rx Furosemide [Lasix TAB] 80 mg PO QDAY@0600 tablet 12/15/17 Unknown Rx Lisinopril [Zestril TAB] 20 mg PO QDAY #30 tablet 12/15/17 Unknown Rx Nicotine [Habitrol] 7 mg TD Q24H #14 patch 12/15/17 Unknown Rx guaiFENesin/CODEINE [Robitussin AC] 10 ml PO Q4H PRN #1 bottle 12/15/17 Unknown Rx predniSONE [Deltasone] 10 mg PO .TAPER #21 tab 12/15/17 Unknown Rx HYDROcodone/ACETAMINOPHEN [Natalia 1 each PO Q6H PRN #10 tablet 12/27/17 Unknown Rx 5-325 Tablet] ED Physical Exam - General Limitations: No Limitations General appearance: alert, in no apparent distress - Head Head exam: Present: atraumatic, normocephalic - Eye Eye exam: Present: normal appearance - ENT ENT exam: Present: mucous membranes moist - Neck Neck exam: Present: normal inspection - Respiratory Respiratory exam: Present: normal lung sounds bilaterally. Absent: respiratory distress, wheezes, rales, rhonchi - Cardiovascular Cardiovascular Exam: Present: regular rate, normal rhythm, normal heart sounds. Absent: systolic murmur, diastolic murmur, rubs, gallop - GI/Abdominal GI/Abdominal exam: Present: soft, normal bowel sounds. Absent: distended, tenderness, guarding, rebound - Rectal Rectal exam: Present: deferred - Extremities Exam Extremities exam: Present: normal inspection. Absent: pedal edema - Back Exam Back exam: Present: normal inspection, other (no edema in lower extremities) - Neurological Exam Neurological exam: Present: alert, oriented X3 - Psychiatric Psychiatric exam: Present: normal affect, normal mood - Skin Skin exam: Present: warm, dry, intact, normal color. Absent: rash ED Course Vital Signs 12/26/17 12/27/17 23:44 02:00 Temperature 99.3 F Pulse Rate 105 H 100 H Respiratory 20 17 Rate Blood Pressure 153/111 O2 Sat by Pulse 96 Oximetry ED Medical Decision Making - Lab Data Result diagrams: 12/27/17 00:00 12/27/17 00:00 Laboratory Results - last 24 hr 12/27/17 12/27/17 12/27/17 00:00 00:00 00:00 WBC 8.3 RBC 4.30 Hgb 12.3 Hct 36.7 MCV 85 MCH 29 MCHC 34 RDW 17.6 H Plt Count 328 Lymph % (Auto) 22.3 [place] % (Auto) 11.6 H Eos % (Auto) 1.0 Baso % (Auto) 1.5 Lymph # 1.9 [place] # 1.0 H Eos # 0.1 Baso # 0.1 Seg Neutrophils % 63.6 Seg Neutrophils # 5.3 Sodium 138 Potassium 4.0 Chloride 98.5 Carbon Dioxide 24 Anion Gap 20 BUN 20 Creatinine 1.2 Estimated GFR > 60 BUN/Creatinine Ratio 17 Glucose 102 H Calcium 8.3 L Total Bilirubin 2.50 H AST 21 ALT 36 Alkaline Phosphatase 90 Troponin T < 0.010 NT-Pro-B Natriuret Pep 7417 H Total Protein 6.6 Albumin 3.7 L Albumin/Globulin Ratio 1.3 Lipase 32 12/27/17 12/27/17 02:47 05:34 WBC RBC Hgb Hct MCV MCH MCHC RDW Plt Count Lymph % (Auto) [place] % (Auto) Eos % (Auto) Baso % (Auto) Lymph # [place] # Eos # Baso # Seg Neutrophils % Seg Neutrophils # Sodium Potassium Chloride Carbon Dioxide Anion Gap BUN Creatinine Estimated GFR BUN/Creatinine Ratio Glucose Calcium Total Bilirubin AST ALT Alkaline Phosphatase Troponin T < 0.010 < 0.010 NT-Pro-B Natriuret Pep Total Protein Albumin Albumin/Globulin Ratio Lipase Vital Signs - 24 hr 12/26/17 12/27/17 23:44 02:00 Temperature 99.3 F Pulse Rate 105 H 100 H Respiratory 20 17 Rate Blood Pressure 153/111 O2 Sat by Pulse 96 Oximetry - EKG Data 12/27/17 09:10 EKG obtained 2232 Ventricular pacing 100 beats a minute left axis deviation widening QRS with pacing no significant ST elevation and no signs of ischemia - Medical Decision Making Mr. Levine presents with right flank pain left chest pain for one week. No evidence of intra-abdominal inflammatory process. He is laying flat resting comfortably. No evidence of acute CHF. There is degenerative lumbar disc disease on CT. I suspect musculoskeletal pain. No evidence of ACS. Prescriptions: 10 tablets of Natalia Critical care attestation.: If time is entered above; I have spent that time in minutes in the direct care of this critically ill patient, excluding procedure time. ED Disposition Clinical Impression: Acute right flank pain, Chest pain Disposition: DC-01 TO HOME OR SELFCARE Is pt being admited?: No Does the pt Need Aspirin: No Condition: Stable Instructions: Chest Pain (ED), Flank Pain (ED) Prescriptions: HYDROcodone/ACETAMINOPHEN [Natalia 5-325 Tablet] 1 each PO Q6H PRN #10 tablet PRN Reason: Pain Referrals: CHRIS PAT MD [Primary Care Provider] - 3-5 Days
--- NOTE | 2017-12-27 09:35 | Cat Scan Report ---
CT ABDOMEN PELVIS WITHOUT CONTRAST: HISTORY: Right flank pain. COMPARISON: 09/12/17. TECHNIQUE: Helical CT in 1.25mm intervals without IV contrast. Sagittal and coronal reconstructions. FINDINGS: Lung bases: Mild cardiomegaly and pacemaker device are noted. Trace left pleural effusion. Liver: Normal. Biliary system: Normal. Pancreas: Normal. Spleen: Normal. Kidneys/ureters/bladder: Normal. Adrenal glands: Normal. Aorta: Normal. Intestines: Within normal limits given no oral contrast was administered. Appendix: Normal. Pelvic viscera: Normal. Ascites: None. Adenopathy: None. Musculoskeletal: Moderate degenerative disc disease at L4-5 and L5-S1. No fracture or suspicious bony lesion identified. IMPRESSION: No acute process. No clear explanation for right flank pain. Mild cardiomegaly and trace left pleural effusion.
[2017-12-27 13:41] VITALS: BP 142/99
== END 2017-12-27 13:15 | disposition home or self-care (01) ==
LOC: ED 23:23
DX: R10.11 Right upper quadrant pain (principal); R10.31 Right lower quadrant pain; R07.9 Chest pain, unspecified; R05 Cough; R06.02 Shortness of breath; I11.0 Hypertensive heart disease with heart failure; I50.9 Heart failure, unspecified; Z87.891 Personal history of nicotine dependence; Z95.0 Presence of cardiac pacemaker
CPT/HCPCS: 36415; 71046; 74176; 80053; 83690; 83880; 84484; 85025; 93005; 93010; 96374

== ENCOUNTER 2018-10-31 16:42 | Inpatient (IN) | payer OTHER ==
[2018-10-31] MEDS ORDERED: ASPIRIN PO ONE (17:17)
[2018-10-31 18:12] LABS: Basophils # (Auto) 0.1 K/mm3 (0.0-0.1); Basophils % (Auto) 0.9 % (0.0-1.8); Eosinophils # (Auto) 0.1 K/mm3 (0.0-0.4); Eosinophils % (Auto) 1.5 % (0.0-4.3); Hemoglobin 12.8 gm/dl (11.8-15.2); Lymphocytes # (Auto) 1.2 K/mm3 (1.2-5.4); Lymphocytes % (Auto) 14.1 % (13.4-35.0); Mean Corpuscular HGB Conc 33 % (32-34); Mean Corpuscular Volume 83 fl (84-94); Monocytes % (Auto) 12.4 % (0.0-7.3); Platelet Count 307 K/mm3 (140-440); Red Blood Count 4.72 M/mm3 (3.65-5.03)
[2018-10-31 18:22] LABS: INR 1.32 (0.87-1.13)
[2018-10-31 18:23] LABS: Partial Thromboplastin Time 22.1 Sec. (24.2-36.6)
[2018-10-31 18:26] LABS: Red Cell Distribution Width 21.2 % (13.2-15.2)
[2018-10-31 18:53] LABS: BUN/Creatinine Ratio 13; Blood Urea Nitrogen 14 mg/dL (9-20); Hemolysis Index 0
[2018-10-31] MEDS ORDERED: MORPHINE IV ONE (21:44)
[2018-10-31] MEDS ORDERED: ZOFRAN IV ONE (21:45)
--- NOTE | 2018-10-31 22:28 | Emergency Department Report ---
ED Chest Pain HPI - General Chief Complaint: Chest Pain Stated Complaint: CHEST PAIN Time Seen by Provider: 10/31/18 21:33 Source: patient Mode of arrival: Ambulatory Limitations: No Limitations - History of Present Illness Initial Comments: 43-year-old male with a past medical history CHF, cardiomyopathy, paroxysmal A. fib fibrillation, AICD, hypertension, mitral valve prosthesis, tricuspid valve repair, and nonischemic cardiomyopathy with EF of 25% (as per cardiology progress note) presents to the hospital with complaints of left-sided chest pain 2-3 days. Pain is constant and rated 10/10 in intensity. Pain is at the left lower chest wall and reproducible with palpation, movement, and deep inspiration. Positive shortness of breath with pain episodes. He describes pain as sharp and feels like a muscle. He denies any trauma or heavy lifting. He has been noncompliant with his Coumadin for 60 days but states he is taking his other medication. Patient states he was told in the past he had a "bruised liver." Director Of Speech Pathology: Dr. Jennings. PMD: None. Severity scale (0 -10): 8 - Related Data Home Medications Medication Instructions Recorded Confirmed Last Taken Aspirin [Aspirin TAB] 325 mg PO QDAY 12/09/16 12/12/17 Unknown Furosemide [Lasix TAB] 80 mg PO QDAY 12/12/17 12/12/17 Unknown Warfarin [Coumadin] 10 mg PO QDAY 12/12/17 12/12/17 Unknown Previous Rx's Medication Instructions Recorded Last Taken Type Potassium Chloride 10 meq PO QDAY #30 capsule.er 12/01/16 Unknown Rx hydrALAZINE [Apresoline TAB] 75 mg PO Q8HR #90 tablet 12/01/16 Unknown Rx ALBUTEROL Inhaler (OR & NICU) 2 puff IH QID PRN #1 inhalation 11/26/17 Unknown R x [ProAir HFA Inhaler] HYDROcodone/APAP 5-325 [Mobile 1 each PO Q6HR PRN #12 tablet 11/26/17 Unknown Rx 5-325 mg TAB] predniSONE [Deltasone] 20 mg PO QDAY #5 tab 11/26/17 Unknown Rx Carvedilol [Coreg] 12.5 mg PO BID #60 tablet 12/15/17 Unknown Rx Furosemide [Lasix TAB] 80 mg PO QDAY@0600 tablet 12/15/17 Unknown Rx Lisinopril [Zestril TAB] 20 mg PO QDAY #30 tablet 12/15/17 Unknown Rx Nicotine [Habitrol] 7 mg TD Q24H #14 patch 12/15/17 Unknown Rx guaiFENesin/CODEINE [Robitussin AC] 10 ml PO Q4H PRN #1 bottle 12/15/17 Unknown Rx predniSONE [Deltasone] 10 mg PO .TAPER #21 tab 12/15/17 Unknown Rx HYDROcodone/ACETAMINOPHEN [Mobile 1 each PO Q6H PRN #10 tablet 12/27/17 Unknown Rx 5-325 Tablet] Allergies Allergy/AdvReac Type Severity Reaction Status Date / Time No Known Allergies Allergy Verified 08/18/16 21:37 Heart Score - HEART Score History: Slightly suspicious EKG: Non-specific Age: < 45 Risk factors: 1-2 risk factors Troponin: < normal limit HEART Score: 2 ED Review of Systems ROS: Stated complaint: CHEST PAIN Other details as noted in HPI Comment: All other systems reviewed and negative ED Past Medical Hx - Past Medical History Hx Hypertension: Yes Hx Congestive Heart Failure: Yes Hx Diabetes: No Hx Liver Disease: Yes Hx Asthma: No Hx COPD: No - Surgical History Past Surgical History?: Yes Hx Open Heart Surgery: Yes Additional Surgical History: AICD, mitral valve replacement with tissue prosthesis 2016, tricuspid valve repair 11/26 done at . Paroxysmal atrial fibrillation - Social History Smoking Status: Current Every Day Smoker Substance Use Type: None - Medications Home Medications: Home Medications Medication Instructions Recorded Confirmed Last Taken Type Potassium Chloride 10 meq PO QDAY #30 capsule.er 12/01/16 12/12/17 Unknown Rx hydrALAZINE [Apresoline TAB] 75 mg PO Q8HR #90 tablet 12/01/16 12/12/17 Unknown Rx Aspirin [Aspirin TAB] 325 mg PO QDAY 12/09/16 12/12/17 Unknown History ALBUTEROL Inhaler (OR & NICU) 2 puff IH QID PRN #1 inhalation 11/26/17 12/12/17 Unknown Rx [ProAir HFA Inhaler] HYDROcodone/APAP 5-325 [Mobile 1 each PO Q6HR PRN #12 tablet 11/26/17 12/12/17 Unknown Rx 5-325 mg TAB] predniSONE [Deltasone] 20 mg PO QDAY #5 tab 11/26/17 12/12/17 Unknown Rx Furosemide [Lasix TAB] 80 mg PO QDAY 12/12/17 12/12/17 Unknown History Warfarin [Coumadin] 10 mg PO QDAY 12/12/17 12/12/17 Unknown History Carvedilol [Coreg] 12.5 mg PO BID #60 tablet 12/15/17 Unknown Rx Furosemide [Lasix TAB] 80 mg PO QDAY@0600 tablet 12/15/17 Unknown Rx Lisinopril [Zestril TAB] 20 mg PO QDAY #30 tablet 12/15/17 Unknown Rx Nicotine [Habitrol] 7 mg TD Q24H #14 patch 12/15/17 Unknown Rx guaiFENesin/CODEINE [Robitussin AC] 10 ml PO Q4H PRN #1 bottle 12/15/17 Unknown Rx predniSONE [Deltasone] 10 mg PO .TAPER #21 tab 12/15/17 Unknown Rx HYDROcodone/ACETAMINOPHEN [Mobile 1 each PO Q6H PRN #10 tablet 12/27/17 Unknown Rx 5-325 Tablet] ED Physical Exam - General Limitations: No Limitations - Other Other exam information: General: Intermittent pain with chest pain attacks Head exam: Atraumatic, normocephalic Eyes exam: Icteric sclerae ENT: Moist mucous membrane, normal oropharynx Neck exam: Normal inspection, full range of motion, no meningismus nontender Respiratory exam: Clear to auscultation bilateral, no wheezes, rales, crackles Cardiovascular: Normal rate and rhythm, reproducible left anterior lower chest wall tenderness to palpation Abdomen: Soft, nondistended, and nontender, with normal bowel sounds, no rebound, or guarding Extremity: Full range of motion normal inspection no deformity, no calf tenderness or edema Back: Normal Inspection, full range of motion, no tenderness Neurologic: Alert, oriented x3, cranial nerves intact, no motor or sensory deficit Psychiatric: normal affect, normal mood Skin: Warm, dry, intact ED Course Vital Signs 10/31/18 10/31/18 10/31/18 17:14 21:50 22:00 Temperature 99.1 F Pulse Rate 105 H 104 H 102 H Respiratory 16 15 24 Rate Blood Pressure 135/96 Blood Pressure 141/96 [Right] O2 Sat by Pulse 97 99 Oximetry 10/31/18 10/31/18 10/31/18 22:11 22:14 22:16 Temperature Pulse Rate 104 H Respiratory 26 H 23 Rate Blood Pressure 135/96 Blood Pressure 135/96 [Right] O2 Sat by Pulse 99 93 Oximetry 10/31/18 10/31/18 10/31/18 22:30 22:46 23:00 Temperature Pulse Rate 105 H 106 H 108 H Respiratory 22 22 23 Rate Blood Pressure 137/98 135/96 144/104 Blood Pressure [Right] O2 Sat by Pulse 94 94 94 Oximetry 10/31/18 23:16 Temperature Pulse Rate 107 H Respiratory 21 Rate Blood Pressure 144/104 Blood Pressure [Right] O2 Sat by Pulse 95 Oximetry - Consultations Consultation #1: 11/01/18 02:07 case d/w denise Santos AMANDA score - Amanda Score Age > 65: (0) No 3 or more CAD Risk Factors: (0) No 2 or more Angina events in past 24 hrs: (1) Yes Known CAD with more than 50% Stenosis: (0) No ST Deviation Greater than 0.5mm: (0) No ED Medical Decision Making - Lab Data Result diagrams: 10/31/18 17:37 10/31/18 17:37 Lab Results 10/31/18 10/31/18 10/31/18 Range/Units 17:34 17:37 17:37 WBC 8.3 (4.5-11.0) K/mm3 RBC 4.72 (3.65-5.03) M/mm3 Hgb 12.8 (11.8-15.2) gm/dl Hct 39.0 (35.5-45.6) % MCV 83 L (84-94) fl MCH 27 L (28-32) pg MCHC 33 (32-34) % RDW 21.2 H (13.2-15.2) % Plt Count 307 (140-440) K/mm3 Lymph % (Auto) 14.1 (13.4-35.0) % [place] % (Auto) 12.4 H (0.0-7.3) % Eos % (Auto) 1.5 (0.0-4.3) % Baso % (Auto) 0.9 (0.0-1.8) % Lymph # 1.2 (1.2-5.4) K/mm3 [place] # 1.0 H (0.0-0.8) K/mm3 Eos # 0.1 (0.0-0.4) K/mm3 Baso # 0.1 (0.0-0.1) K/mm3 Seg Neutrophils % 71.1 H (40.0-70.0) % Seg Neutrophils # 5.9 (1.8-7.7) K/mm3 PT (12.2-14.9) Sec. INR (0.87-1.13) APTT (24.2-36.6) Sec. D-Dimer 602.68 H (0-234) ng/mlDDU Sodium 140 (137-145) mmol/L Potassium 3.7 (3.6-5.0) mmol/L Chloride 95.4 L (98-107) mmol/L Carbon Dioxide 34 H (22-30) mmol/L Anion Gap 14 mmol/L BUN 14 (9-20) mg/dL Creatinine 1.1 (0.8-1.5) mg/dL Estimated GFR > 60 ml/min BUN/Creatinine Ratio 13 % Glucose 139 H (75-100) mg/dL Calcium 9.0 (8.4-10.2) mg/dL Total Bilirubin (0.1-1.2) mg/dL Direct Bilirubin (0-0.2) mg/dL Indirect Bilirubin mg/dL AST (5-40) units/L ALT (7-56) units/L Alkaline Phosphatase (35-129) units/L Troponin T < 0.010 (0.00-0.029) ng/mL Total Protein (6.3-8.2) g/dL Albumin (3.9-5) g/dL Albumin/Globulin Ratio % 10/31/18 10/31/18 10/31/18 Range/Units 17:37 20:45 21:34 WBC (4.5-11.0) K/mm3 RBC (3.65-5.03) M/mm3 Hgb (11.8-15.2) gm/dl Hct (35.5-45.6) % MCV (84-94) fl MCH (28-32) pg MCHC (32-34) % RDW (13.2-15.2) % Plt Count (140-440) K/mm3 Lymph % (Auto) (13.4-35.0) % [place] % (Auto) (0.0-7.3) % Eos % (Auto) (0.0-4.3) % Baso % (Auto) (0.0-1.8) % Lymph # (1.2-5.4) K/mm3 [place] # (0.0-0.8) K/mm3 Eos # (0.0-0.4) K/mm3 Baso # (0.0-0.1) K/mm3 Seg Neutrophils % (40.0-70.0) % Seg Neutrophils # (1.8-7.7) K/mm3 PT 16.8 H (12.2-14.9) Sec. INR 1.32 H (0.87-1.13) APTT 22.1 L (24.2-36.6) Sec. D-Dimer (0-234) ng/mlDDU Sodium (137-145) mmol/L Potassium (3.6-5.0) mmol/L Chloride (98-107) mmol/L Carbon Dioxide (22-30) mmol/L Anion Gap mmol/L BUN (9-20) mg/dL Creatinine (0.8-1.5) mg/dL Estimated GFR ml/min BUN/Creatinine Ratio % Glucose (75-100) mg/dL Calcium (8.4-10.2) mg/dL Total Bilirubin 16.80 H (0.1-1.2) mg/dL Direct Bilirubin > 10.0 H (0-0.2) mg/dL Indirect Bilirubin 6.8 mg/dL AST 25 (5-40) units/L ALT 22 (7-56) units/L Alkaline Phosphatase 178 H (35-129) units/L Troponin T < 0.010 (0.00-0.029) ng/mL Total Protein 7.1 (6.3-8.2) g/dL Albumin 3.7 L (3.9-5) g/dL Albumin/Globulin Ratio 1.1 % 10/31/18 Range/Units 23:11 WBC (4.5-11.0) K/mm3 RBC (3.65-5.03) M/mm3 Hgb (11.8-15.2) gm/dl Hct (35.5-45.6) % MCV (84-94) fl MCH (28-32) pg MCHC (32-34) % RDW (13.2-15.2) % Plt Count (140-440) K/mm3 Lymph % (Auto) (13.4-35.0) % [place] % (Auto) (0.0-7.3) % Eos % (Auto) (0.0-4.3) % Baso % (Auto) (0.0-1.8) % Lymph # (1.2-5.4) K/mm3 [place] # (0.0-0.8) K/mm3 Eos # (0.0-0.4) K/mm3 Baso # (0.0-0.1) K/mm3 Seg Neutrophils % (40.0-70.0) % Seg Neutrophils # (1.8-7.7) K/mm3 PT (12.2-14.9) Sec. INR (0.87-1.13) APTT (24.2-36.6) Sec. D-Dimer (0-234) ng/mlDDU Sodium (137-145) mmol/L Potassium (3.6-5.0) mmol/L Chloride (98-107) mmol/L Carbon Dioxide (22-30) mmol/L Anion Gap mmol/L BUN (9-20) mg/dL Creatinine (0.8-1.5) mg/dL Estimated GFR ml/min BUN/Creatinine Ratio % Glucose (75-100) mg/dL Calcium (8.4-10.2) mg/dL Total Bilirubin (0.1-1.2) mg/dL Direct Bilirubin (0-0.2) mg/dL Indirect Bilirubin mg/dL AST (5-40) units/L ALT (7-56) units/L Alkaline Phosphatase (35-129) units/L Troponin T < 0.010 (0.00-0.029) ng/mL Total Protein (6.3-8.2) g/dL Albumin (3.9-5) g/dL Albumin/Globulin Ratio % - EKG Data -: EKG Interpreted by Me (v paced rate 106, no stemi) - Radiology Data Radiology results: report reviewed FINAL REPORT PROCEDURE: CT ABDOMEN PELVIS W CON TECHNIQUE: Computerized axial tomography of the abdomen and pelvis was performed after the IV injection of iodinated nonionic contrast. HISTORY: elevated bilirubin COMPARISON: No prior studies are available for comparison. FINDINGS: Visualized lower thorax: Heart is enlarged. There is a small left pleural effusion.. Liver: The liver is enlarged and heterogeneous suggesting fatty infiltration. There is no discrete mass.. Spleen: Normal size and attenuation. Gallbladder and biliary system: Normal. Pancreas: Normal. Adrenals: Normal. Kidneys: Normal. GI tract: There is no bowel obstruction, colitis or enteritis. The appendix is normal.. Lymph nodes and mesentery: Normal. Vasculature: Normal. Bladder: Normal. Reproductive organs: Normal. Peritoneum: There is no ascites or free air, abscess or adenopathy.. Musculoskeletal structures: No significant abnormality. Other: None. IMPRESSION: Heart is enlarged. There is a small left pleural effusion.. The liver is enlarged and heterogeneous suggesting fatty infiltration. There is no discrete mass.. The gallbladder and bile ducts are unremarkable. There is no specific evidence of cholelithiasis or cholecystitis. There is no biliary ductal dilatation. There is no bowel obstruction, colitis or enteritis. The appendix is normal.. There is no ascites or free air, abscess or adenopathy.. FINAL REPORT PROCEDURE: CT ANGIO CHEST TECHNIQUE: Computerized tomographic angiography of the chest was performed after the IV injection of iodinated nonionic contrast including image processing. The image data was postprocessed using 2- dimensional multiplanar reformatted (MPR) and 3-dimensional (MIP and/or volume rendered) techniques. HISTORY: left lower cp COMPARISON: 12/14/2017 FINDINGS: Heart and pericardium: The heart is enlarged.. Thoracic aorta: There is no thoracic aortic aneurysm or dissection. Pulmonary vasculature: There is no pulmonary embolism.. Lymph nodes: No enlarged thoracic lymph nodes. Lungs: There is suboptimal inspiration. There is no infiltrate. There are fibrotic changes versus atelectasis at the lung bases.. Pleural space: There is no pleural effusion or pneumothorax.. Musculoskeletal structures: No significant abnormality. Upper abdominal structures: No significant abnormality. IMPRESSION: The heart is enlarged.. There is no thoracic aortic aneurysm or dissection. There is no pulmonary embolism.. There is suboptimal inspiration. There is no infiltrate. There are fibrotic changes versus atelectasis at the lung bases.. There is no pleural effusion or pneumothorax.. - Medical Decision Making Patient's chest pain appears to be musculoskeletal in very reproducible with palpation. Cardiac enzymes negative 3, CT angiogram negative for pulmonary embolism. CT abdomen and pelvis performed due to elevated bilirubin. No acute abnormality found on CAT scan. Patient has a history of known liver disease however, he does not know the details and states he was told that he had a "bruised liver". As per medical record review his bilirubin was elevated in November 2016 prior to transfer to [place] for valve replacement. More recent bilirubin levels performed in December 2017 were improved. I'm unclear if the elevated bilirubin represents an acute or chronic problem. Patient will be admitted to the hospital for further treatment. - Differential Diagnosis chest wall pain, muscle spasm, pulmonary embolism, AR Critical Care Time: No Critical care attestation.: If time is entered above; I have spent that time in minutes in the direct care of this critically ill patient, excluding procedure time. ED Disposition Clinical Impression: Chest wall pain, Elevated bilirubin, Noncompliance with medication regimen, AICD (automatic cardioverter/defibrillator) present, History of atrial fibrillation, CHF (congestive heart failure), Fatty liver, History of mitral valve replacement with bioprosthetic valve, H/O tricuspid valve repair Disposition: -09 OP ADMIT IP TO THIS HOSP Is pt being admited?: Yes Condition: Stable Instructions: Chest Pain (ED) Time of Disposition: 02:16 (Dr Mcclain/hosp)
[2018-10-31 22:49] LABS: Alanine Aminotransferase 22 units/L (7-56); Albumin 3.7 g/dL (3.9-5)
[2018-10-31] MEDS ORDERED: COREG PO ONE (23:00)
[2018-10-31 23:02] LABS: Bilirubin,Direct > 10.0 mg/dL (0-0.2)
--- NOTE | 2018-10-31 23:39 | XRay Report ---
FINAL REPORT PROCEDURE: XR CHEST 1V AP TECHNIQUE: Chest radiograph anteroposterior view. CPT 22529 HISTORY: left side cp COMPARISON: 12/26/2017 FINDINGS: Heart: The heart is enlarged. There has been open heart surgery. Mediastinum/Vessels: Normal. Lungs/Pleural space: Lungs are expanded. There are no infiltrates, effusions or pneumothoraces.. Bony thorax: No acute osseous abnormality. Life support devices: Pacemaker leads are in proper position.. IMPRESSION: The heart is enlarged. There has been open heart surgery. Lungs are expanded. There are no infiltrates, effusions or pneumothoraces.. Pacemaker leads are in proper position.. .
--- NOTE | 2018-11-01 01:20 | Cat Scan Report ---
FINAL REPORT PROCEDURE: CT ANGIO CHEST TECHNIQUE: Computerized tomographic angiography of the chest was performed after the IV injection of iodinated nonionic contrast including image processing. The image data was postprocessed using 2-dim ensional multiplanar reformatted (MPR) and 3-dimensional (MIP and/or volume rendered) techniques. HISTORY: left lower cp COMPARISON: 12/14/2017 FINDINGS: Heart and pericardium: The heart is enlarged.. Thoracic aorta: There is no thoracic aortic aneurysm or dissection. Pulmonary vasculature: There is no pulmonary embolism.. Lymph nodes: No enlarged thoracic lymph nodes. Lungs: There is suboptimal inspiration. There is no infiltrate. There are fibrotic changes versus ate lectasis at the lung bases.. Pleural space: There is no pleural effusion or pneumothorax.. Musculoskeletal structures: No significant abnormality. Upper abdominal structures: No significant abnormality. IMPRESSION: The heart is enlarged.. There is no thoracic aortic aneurysm or dissection. There is no pulmonary embolism.. There is suboptimal inspiration. There is no infiltrate. There are fibrotic changes versus atelectasi s at the lung bases.. There is no pleural effusion or pneumothorax..
--- NOTE | 2018-11-01 01:47 | Cat Scan Report ---
FINAL REPORT PROCEDURE: CT ABDOMEN PELVIS W CON TECHNIQUE: Computerized axial tomography of the abdomen and pelvis was performed after the IV inject ion of iodinated nonionic contrast. HISTORY: elevated bilirubin COMPARISON: No prior studies are available for comparison. FINDINGS: Visualized lower thorax: Heart is enlarged. There is a small left pleural effusion.. Liver: The liver is enlarged and heterogeneous suggesting fatty infiltration. There is no discrete ma ss.. Spleen: Normal size and attenuation. Gallbladder and biliary system: Normal. Pancreas: Normal. Adrenals: Normal. Kidneys: Normal. GI tract: There is no bowel obstruction, colitis or enteritis. The appendix is normal.. Lymph nodes and mesentery: Normal. Vasculature: Normal. Bladder: Normal. Reproductive organs: Normal. Peritoneum: There is no ascites or free air, abscess or adenopathy.. Musculoskeletal structures: No significant abnormality. Other: None. IMPRESSION: Heart is enlarged. There is a small left pleural effusion.. The liver is enlarged and heterogeneous suggesting fatty infiltration. There is no discrete mass.. The gallbladder and bile ducts are unremarkable. There is no specific evidence of cholelithiasis or c holecystitis. There is no biliary ductal dilatation. There is no bowel obstruction, colitis or enteritis. The appendix is normal.. There is no ascites or free air, abscess or adenopathy..
[2018-11-01] MEDS ORDERED: TYLENOL PO PRN ×2 (02:44→03:40)
[2018-11-01] MEDS ORDERED: SODIUM CHLORIDE FLUSH SYRINGE 10 ML IV PRN (02:44)
[2018-11-01] MEDS ORDERED: ZOFRAN IV PRN (02:44)
[2018-11-01] MEDS ORDERED: NACL 0.9% 1000 ML 1,000 ML IV SCH (04:00)
--- NOTE | 2018-11-01 04:50 | History and Physical Report ---
<TREVER VAZQUEZ - Last Filed: 11/01/18 20:10> History of Present Illness Date of examination: 11/01/18 Date of admission: 11/01/18 02:44 Chief complaint: Chest Pain History of present illness: Patient is a 43-year-old male with history of CAD/CHF (EF 25%), cardiomyopathy, A. fib, AICD implant, hypertension, tricuspid and mitral valve replacement who presents to the ER with complaint of chest pain 3 days. Patient reports a constant, severe chest pain located in the left substernal area without radiation, with an intensity of 10/10. Patient states that the pain feels like it's tearing up his chest, the pain is worse with coughing, deep breathing or any movement involving the chest wall, pt states that the pain is reproducible to light touch. patient also complains of a frequent productive cough with clear sputum, complains of pain on his back pain radiating to his left leg. Pt denies recent injury, denies ill contact, denies nausea or vomiting , denies fever, denies. Physical exam revealed sclera icterus and labs shows elevated LFT's and bilirubin. Patient was initially evaluated and treated in the ER and admitted for further evaluation. Past History Past Medical History: CAD, heart failure, hypertension, hyperlipidemia Past Surgical History: Other (mitral and tricuspid valve Repair) Medications and Allergies Allergies Allergy/AdvReac Type Severity Reaction Status Date / Time No Known Allergies Allergy Verified 08/18/16 21:37 Home Medications Medication Instructions Recorded Confirmed Last Taken Type Potassium Chloride 10 meq PO QDAY #30 capsule.er 12/01/16 11/01/18 Unknown Rx hydrALAZINE [Apresoline TAB] 75 mg PO Q8HR #90 tablet 12/01/16 11/01/18 Unknown Rx Aspirin [Aspirin TAB] 325 mg PO QDAY 12/09/16 11/01/18 Unknown History ALBUTEROL Inhaler (OR & NICU) 2 puff IH QID PRN #1 inhalation 11/26/17 11/01/18 Unknown Rx [ProAir HFA Inhaler] HYDROcodone/APAP 5-325 [[place] 1 each PO Q6HR PRN #12 tablet 11/26/17 11/01/18 Unknown Rx 5-325 mg TAB] predniSONE [Deltasone] 20 mg PO QDAY #5 tab 11/26/17 11/01/18 Unknown Rx Furosemide [Lasix TAB] 80 mg PO QDAY 12/12/17 11/01/18 Unknown History Warfarin [Coumadin] 10 mg PO QDAY 12/12/17 11/01/18 Unknown History Carvedilol [Coreg] 12.5 mg PO BID #60 tablet 12/15/17 11/01/18 Unknown Rx Furosemide [Lasix TAB] 80 mg PO QDAY@0600 tablet 12/15/17 11/01/18 Unknown Rx Lisinopril [Zestril TAB] 20 mg PO QDAY #30 tablet 12/15/17 11/01/18 Unknown Rx Nicotine [Habitrol] 7 mg TD Q24H #14 patch 12/15/17 11/01/18 Unknown Rx guaiFENesin/CODEINE [Robitussin AC] 10 ml PO Q4H PRN #1 bottle 12/15/17 11/01/18 Unknown Rx predniSONE [Deltasone] 10 mg PO .TAPER #21 tab 12/15/17 11/01/18 Unknown Rx HYDROcodone/ACETAMINOPHEN [[place] 1 each PO Q6H PRN #10 tablet 12/27/17 11/01/18 Unknown Rx 5-325 Tablet] Active Meds: Active Medications Acetaminophen (Tylenol) 650 mg PO Q4H PRN PRN Reason: Pain MILD(1-3)/Fever >100.5/PEREZ Famotidine (Pepcid) 20 mg IV BID SARAH Sodium Chloride (Nacl 0.9% 1000 Ml) 1,000 mls @ 75 mls/hr IV DIRECT SARAH Ondansetron HCl (Zofran) 4 mg IV Q8H PRN PRN Reason: Nausea And Vomiting Sodium Chloride (Sodium Chloride Flush Syringe 10 Ml) 10 ml IV BID SARAH Sodium Chloride (Sodium Chloride Flush Syringe 10 Ml) 10 ml IV PRN PRN PRN Reason: LINE FLUSH Exam - Constitutional Vitals: Temp Pulse Resp BP Pulse Ox 99.1 F 82 19 110/64 97 10/31/18 17:14 11/01/18 03:54 11/01/18 03:54 11/01/18 03:54 11/01/18 03:54 Results - Labs CBC & Chem 7: 10/31/18 17:37 10/31/18 17:37 Labs: Laboratory Last Values WBC 8.3 K/mm3 (4.5-11.0) 10/31/18 17:37 RBC 4.72 M/mm3 (3.65-5.03) 10/31/18 17:37 Hgb 12.8 gm/dl (11.8-15.2) 10/31/18 17:37 Hct 39.0 % (35.5-45.6) 10/31/18 17:37 MCV 83 fl (84-94) L 10/31/18 17:37 MCH 27 pg (28-32) L 10/31/18 17:37 MCHC 33 % (32-34) 10/31/18 17:37 RDW 21.2 % (13.2-15.2) H 10/31/18 17:37 Plt Count 307 K/mm3 (140-440) 10/31/18 17:37 Lymph % (Auto) 14.1 % (13.4-35.0) 10/31/18 17:37 [place] % (Auto) 12.4 % (0.0-7.3) H 10/31/18 17:37 Eos % (Auto) 1.5 % (0.0-4.3) 10/31/18 17:37 Baso % (Auto) 0.9 % (0.0-1.8) 10/31/18 17:37 Lymph # 1.2 K/mm3 (1.2-5.4) 10/31/18 17:37 [place] # 1.0 K/mm3 (0.0-0.8) H 10/31/18 17:37 Eos # 0.1 K/mm3 (0.0-0.4) 10/31/18 17:37 Baso # 0.1 K/mm3 (0.0-0.1) 10/31/18 17:37 Seg Neutrophils % 71.1 % (40.0-70.0) H 10/31/18 17:37 Seg Neutrophils # 5.9 K/mm3 (1.8-7.7) 10/31/18 17:37 PT 16.8 Sec. (12.2-14.9) H 10/31/18 17:37 INR 1.32 (0.87-1.13) H 10/31/18 17:37 APTT 22.1 Sec. (24.2-36.6) L 10/31/18 17:37 D-Dimer 602.68 ng/mlDDU (0-234) H 10/31/18 17:34 Sodium 140 mmol/L (137-145) 10/31/18 17:37 Potassium 3.7 mmol/L (3.6-5.0) 10/31/18 17:37 Chloride 95.4 mmol/L (98-107) L 10/31/18 17:37 Carbon Dioxide 34 mmol/L (22-30) H 10/31/18 17:37 Anion Gap 14 mmol/L 10/31/18 17:37 BUN 14 mg/dL (9-20) 10/31/18 17:37 Creatinine 1.1 mg/dL (0.8-1.5) 10/31/18 17:37 Estimated GFR > 60 ml/min 10/31/18 17:37 BUN/Creatinine Ratio 13 % 10/31/18 17:37 Glucose 139 mg/dL (75-100) H 10/31/18 17:37 Calcium 9.0 mg/dL (8.4-10.2) 10/31/18 17:37 Total Bilirubin 16.80 mg/dL (0.1-1.2) H 10/31/18 21:34 Direct Bilirubin > 10.0 mg/dL (0-0.2) H 10/31/18 21:34 Indirect Bilirubin 6.8 mg/dL 10/31/18 21:34 AST 25 units/L (5-40) 10/31/18 21:34 ALT 22 units/L (7-56) 10/31/18 21:34 Alkaline Phosphatase 178 units/L (35-129) H 10/31/18 21:34 Troponin T < 0.010 ng/mL (0.00-0.029) 10/31/18 23:11 Total Protein 7.1 g/dL (6.3-8.2) 10/31/18 21:34 Albumin 3.7 g/dL (3.9-5) L 10/31/18 21:34 Albumin/Globulin Ratio 1.1 % 10/31/18 21:34 Assessment and Plan Assessment and plan: 1. Atypical chest/costochondritis (likely pleuritic) 2. Acute bronchitis 3. Elevated LFTs/jaundice 4. Lower back pain with radiculopathy 5. CHF (EF 25%) 6. Paroxysmal A. fib (on Coumadin) 7. Cardiomyopathy/AICD 8. COPD with active exacerbation 9. Hypertension 10.[place] and tricuspid valve repair 11. Hypertension 12. Hyperlipidemia 13. GERD Plan: Patient is admitted for chest pain and elevated LFTs Chest pain (is likely pleuritic due to bronchitis) Consult GI for elevated LFTs Nebulizer treatment for SOB Cough suppressant Hepatic function panel Continue home meds PT and PTT in the Monitor LFTs in am Plan of care d/w pt, voiced understanding Pt's condition and plan of care d/w Dr Mcclain Advance Directives: Yes VTE prophylaxis?: Mechanical <FANNY MCCLAIN E - Last Filed: 12/05/18 02:32> History of Present Illness Date of admission: 11/01/18 02:44 Exam - Constitutional Vitals: Temp Pulse Resp BP Pulse Ox 98.0 F 78 18 121/87 99 11/03/18 15:11 11/03/18 15:11 11/03/18 15:11 11/03/18 15:11 11/03/18 15:11 Results - Labs CBC & Chem 7: 11/02/18 06:05 11/02/18 06:05 Labs: Laboratory Last Values WBC 6.7 K/mm3 (4.5-11.0) 11/02/18 06:05 RBC 4.33 M/mm3 (3.65-5.03) 11/02/18 06:05 Hgb 11.7 gm/dl (11.8-15.2) L 11/02/18 06:05 Hct 35.4 % (35.5-45.6) L 11/02/18 06:05 MCV 82 fl (84-94) L 11/02/18 06:05 MCH 27 pg (28-32) L 11/02/18 06:05 MCHC 33 % (32-34) 11/02/18 06:05 RDW 20.7 % (13.2-15.2) H 11/02/18 06:05 Plt Count 289 K/mm3 (140-440) 11/02/18 06:05 Lymph % (Auto) 16.7 % (13.4-35.0) 11/02/18 06:05 [place] % (Auto) 11.4 % (0.0-7.3) H 11/02/18 06:05 Eos % (Auto) 1.6 % (0.0-4.3) 11/02/18 06:05 Baso % (Auto) 1.0 % (0.0-1.8) 11/02/18 06:05 Lymph # 1.1 K/mm3 (1.2-5.4) L 11/02/18 06:05 [place] # 0.8 K/mm3 (0.0-0.8) 11/02/18 06:05 Eos # 0.1 K/mm3 (0.0-0.4) 11/02/18 06:05 Baso # 0.1 K/mm3 (0.0-0.1) 11/02/18 06:05 Seg Neutrophils % 69.3 % (40.0-70.0) 11/02/18 06:05 Seg Neutrophils # 4.6 K/mm3 (1.8-7.7) 11/02/18 06:05 PT 16.4 Sec. (12.2-14.9) H 11/03/18 05:17 INR 1.28 (0.87-1.13) H 11/03/18 05:17 APTT 22.1 Sec. (24.2-36.6) L 10/31/18 17:37 D-Dimer 602.68 ng/mlDDU (0-234) H 10/31/18 17:34 Sodium 139 mmol/L (137-145) 11/02/18 06:05 Potassium 3.5 mmol/L (3.6-5.0) L 11/02/18 06:05 Chloride 97.2 mmol/L (98-107) L 11/02/18 06:05 Carbon Dioxide 27 mmol/L (22-30) D 11/02/18 06:05 Anion Gap 18 mmol/L 11/02/18 06:05 BUN 20 mg/dL (9-20) 11/02/18 06:05 Creatinine 1.2 mg/dL (0.8-1.5) 11/02/18 06:05 Estimated GFR > 60 ml/min 11/02/18 06:05 BUN/Creatinine Ratio 17 % 11/02/18 06:05 Glucose 124 mg/dL (75-100) H 11/02/18 06:05 Calcium 8.3 mg/dL (8.4-10.2) L 11/02/18 06:05 Magnesium 2.10 mg/dL (1.7-2.3) 11/02/18 06:05 Total Bilirubin 13.90 mg/dL (0.1-1.2) H 11/02/18 06:05 Direct Bilirubin > 10.0 mg/dL (0-0.2) H 10/31/18 21:34 Indirect Bilirubin 6.8 mg/dL 10/31/18 21:34 AST 19 units/L (5-40) 11/02/18 06:05 ALT 18 units/L (7-56) 11/02/18 06:05 Alkaline Phosphatase 155 units/L (35-129) H 11/02/18 06:05 Troponin T < 0.010 ng/mL (0.00-0.029) 10/31/18 23:11 Total Protein 6.0 g/dL (6.3-8.2) L 11/02/18 06:05 Albumin 3.4 g/dL (3.9-5) L 11/02/18 06:05 Albumin/Globulin Ratio 1.3 % 11/02/18 06:05 Hepatitis A IgM Ab Non-reactive (NonReactive) 11/01/18 06:08 Hep Bs Antigen Non-reactive (Negative) 11/01/18 06:08 Hep B Core IgM Ab Non-reactive (NonReactive) 11/01/18 06:08 Hepatitis C Antibody Non-reactive (NonReactive) 11/01/18 06:08 Assessment and Plan Assessment and plan: Patient seen and examined with nurse practitioner. Is a 43-year-old male with a history of CHF, A. fib, cardiomyopathy, COPD, hypertension, hyperlipidemia, GERD comes emergency room with complaints of chest pain. Physical exam is benign, agree with all plan of care as discussed above
[2018-11-01] MEDS ORDERED: PROAIR IH PRN (05:29)
[2018-11-01] MEDS ORDERED: PROVENTIL IH PRN (05:48)
[2018-11-01] MEDS: LOVENOX SUB-Q SCH ×2 (06:40→17:54)
[2018-11-01] MEDS: APRESOLINE PO SCH ×3 (06:42→21:40)
[2018-11-01] MEDS: PEPCID IV SCH ×2 (09:12→21:41)
[2018-11-01] MEDS: COREG PO SCH ×2 (09:12→21:40)
[2018-11-01] MEDS: BABY ASPIRIN PO SCH (09:12)
[2018-11-01] MEDS: LASIX PO SCH (09:12)
[2018-11-01] MEDS: ZESTRIL PO SCH (09:12)
[2018-11-01] MEDS: SODIUM CHLORIDE FLUSH SYRINGE 10 ML IV SCH ×2 (09:13→21:41)
[2018-11-01] MEDS: HABITROL TD SCH (09:14)
[2018-11-01] MEDS ORDERED: ASPIRIN PO SCH (10:00)
--- NOTE | 2018-11-01 10:06 | Event Note ---
Date: 11/01/18 Patient seen and examined medical records reviewed Patient was admitted this morning with atypical chest pain, acute bronchitis Acute on chronic congestive heart failure, paroxysmal A. fib on Coumadin Cardiomyopathy AICD, transaminitis hyperbilirubinemia Patient is scheduled for stress test tomorrow, GI evaluation pending Medical records reviewed, agree with the current management
[2018-11-01 10:07] LABS: Hepatitis B Surface Antigen Non-Reactive (Negative); Hepatitis C Virus Antibody Non-Reactive (NonReactive)
--- NOTE | 2018-11-01 12:22 | Gastroenterology Consultation ---
<MILLYMALLORY R - Last Filed: 11/01/18 14:40> Medications and Allergies Allergies Allergy/AdvReac Type Severity Reaction Status Date / Time No Known Allergies Allergy Verified 08/18/16 21:37 Home Medications Medication Instructions Recorded Confirmed Last Taken Type Potassium Chloride 10 meq PO QDAY #30 capsule.er 12/01/16 11/01/18 Unknown Rx hydrALAZINE [Apresoline TAB] 75 mg PO Q8HR #90 tablet 12/01/16 11/01/18 Unknown Rx Aspirin [Aspirin TAB] 325 mg PO QDAY 12/09/16 11/01/18 Unknown History ALBUTEROL Inhaler (OR & NICU) 2 puff IH QID PRN #1 inhalation 11/26/17 11/01/18 Unknown Rx [ProAir HFA Inhaler] HYDROcodone/APAP 5-325 [[place] 1 each PO Q6HR PRN #12 tablet 11/26/17 11/01/18 Unknown Rx 5-325 mg TAB] predniSONE [Deltasone] 20 mg PO QDAY #5 tab 11/26/17 11/01/18 Unknown Rx Furosemide [Lasix TAB] 80 mg PO QDAY 12/12/17 11/01/18 Unknown History Warfarin [Coumadin] 10 mg PO QDAY 12/12/17 11/01/18 Unknown History Carvedilol [Coreg] 12.5 mg PO BID #60 tablet 12/15/17 11/01/18 Unknown Rx Furosemide [Lasix TAB] 80 mg PO QDAY@0600 tablet 12/15/17 11/01/18 Unknown Rx Lisinopril [Zestril TAB] 20 mg PO QDAY #30 tablet 12/15/17 11/01/18 Unknown Rx Nicotine [Habitrol] 7 mg TD Q24H #14 patch 12/15/17 11/01/18 Unknown Rx guaiFENesin/CODEINE [Robitussin AC] 10 ml PO Q4H PRN #1 bottle 12/15/17 11/01/18 Unknown Rx predniSONE [Deltasone] 10 mg PO .TAPER #21 tab 12/15/17 11/01/18 Unknown Rx HYDROcodone/ACETAMINOPHEN [[place] 1 each PO Q6H PRN #10 tablet 12/27/17 11/01/18 Unknown Rx 5-325 Tablet] Active Meds: Active Medications Acetaminophen (Tylenol) 650 mg PO Q4H PRN PRN Reason: Pain MILD(1-3)/Fever >100.5/PEREZ Albuterol (Proventil) 2.5 mg IH Q4HRT PRN PRN Reason: Shortness Of Breath Aspirin (Baby Aspirin) 81 mg PO QDAY [facility] Last Admin: 11/01/18 09:12 Dose: 81 mg Documented by: Carvedilol (Coreg) 12.5 mg PO BID [facility] Last Admin: 11/01/18 09:12 Dose: 12.5 mg Documented by: Enoxaparin Sodium (Lovenox) 90 mg 1 mg/kg (90 mg) SUB-Q Q12H [facility] Last Admin: 11/01/18 06:40 Dose: 90 mg Documented by: Famotidine (Pepcid) 20 mg IV BID [facility] Last Admin: 11/01/18 09:12 Dose: 20 mg Documented by: Furosemide (Lasix) 80 mg PO QDAY [facility] Last Admin: 11/01/18 09:12 Dose: 80 mg Documented by: Hydralazine HCl (Apresoline) 75 mg PO Q8HR [facility] Last Admin: 11/01/18 06:42 Dose: 75 mg Documented by: Sodium Chloride (Nacl 0.9% 1000 Ml) 1,000 mls @ 75 mls/hr IV DIRECT [facility] Lisinopril (Zestril) 20 mg PO QDAY [facility] Last Admin: 11/01/18 09:12 Dose: 20 mg Documented by: Nicotine (Habitrol) 7 mg TD Q24HR [facility] Last Admin: 11/01/18 09:14 Dose: Not Given Documented by: Ondansetron HCl (Zofran) 4 mg IV Q8H PRN PRN Reason: Nausea And Vomiting Sodium Chloride (Sodium Chloride Flush Syringe 10 Ml) 10 ml IV BID [facility] Last Admin: 11/01/18 09:13 Dose: 10 ml Documented by: Sodium Chloride (Sodium Chloride Flush Syringe 10 Ml) 10 ml IV PRN PRN PRN Reason: LINE FLUSH Warfarin Sodium (Coumadin) 10 mg PO DAILY@1700 [facility]; Protocol Exam - Constitutional Vital Signs: Temp Pulse Resp BP Pulse Ox 98.2 F 77 18 103/72 97 11/01/18 08:55 11/01/18 08:55 11/01/18 08:55 11/01/18 08:55 11/01/18 09:03 - Labs CBC & Chem 7: 10/31/18 17:37 10/31/18 17:37 Lab Results: Laboratory Results - last 24 hr 10/31/18 10/31/18 10/31/18 17:34 17:37 17:37 WBC 8.3 RBC 4.72 Hgb 12.8 Hct 39.0 MCV 83 L MCH 27 L MCHC 33 RDW 21.2 H Plt Count 307 Lymph % (Auto) 14.1 [place] % (Auto) 12.4 H Eos % (Auto) 1.5 Baso % (Auto) 0.9 Lymph # 1.2 [place] # 1.0 H Eos # 0.1 Baso # 0.1 Seg Neutrophils % 71.1 H Seg Neutrophils # 5.9 PT INR APTT D-Dimer 602.68 H Sodium 140 Potassium 3.7 Chloride 95.4 L Carbon Dioxide 34 H Anion Gap 14 BUN 14 Creatinine 1.1 Estimated GFR > 60 BUN/Creatinine Ratio 13 Glucose 139 H Calcium 9.0 Total Bilirubin Direct Bilirubin Indirect Bilirubin AST ALT Alkaline Phosphatase Troponin T < 0.010 Total Protein Albumin Albumin/Globulin Ratio Hepatitis A IgM Ab Hep Bs Antigen Hep B Core IgM Ab Hepatitis C Antibody 10/31/18 10/31/18 10/31/18 17:37 20:45 21:34 WBC RBC Hgb Hct MCV MCH MCHC RDW Plt Count Lymph % (Auto) [place] % (Auto) Eos % (Auto) Baso % (Auto) Lymph # [place] # Eos # Baso # Seg Neutrophils % Seg Neutrophils # PT 16.8 H INR 1.32 H APTT 22.1 L D-Dimer Sodium Potassium Chloride Carbon Dioxide Anion Gap BUN Creatinine Estimated GFR BUN/Creatinine Ratio Glucose Calcium Total Bilirubin 16.80 H Direct Bilirubin > 10.0 H Indirect Bilirubin 6.8 AST 25 ALT 22 Alkaline Phosphatase 178 H Troponin T < 0.010 Total Protein 7.1 Albumin 3.7 L Albumin/Globulin Ratio 1.1 Hepatitis A IgM Ab Hep Bs Antigen Hep B Core IgM Ab Hepatitis C Antibody 10/31/18 11/01/18 23:11 06:08 WBC RBC Hgb Hct MCV MCH MCHC RDW Plt Count Lymph % (Auto) [place] % (Auto) Eos % (Auto) Baso % (Auto) Lymph # [place] # Eos # Baso # Seg Neutrophils % Seg Neutrophils # PT INR APTT D-Dimer Sodium Potassium Chloride Carbon Dioxide Anion Gap BUN Creatinine Estimated GFR BUN/Creatinine Ratio Glucose Calcium Total Bilirubin Direct Bilirubin Indirect Bilirubin AST ALT Alkaline Phosphatase Troponin T < 0.010 Total Protein Albumin Albumin/Globulin Ratio Hepatitis A IgM Ab Non-reactive Hep Bs Antigen Non-reactive Hep B Core IgM Ab Non-reactive Hepatitis C Antibody Non-reactive Assessment and Plan Pt notes a hx of jaundice ever since surgery in 2016 at [facility] for CABG and pacemaker. I suspect jaundice is related to that surgery and to CHF. no evidence of significant liver synthetic dysfunction, or portal HTN. - as outpatient, would recommend evaluation at [facility]. <LOUIS BOOKER - Last Filed: 11/01/18 14:44> History of Present Illness - Reason for Consult Consult date: 11/01/18 elevated bilirubin Requesting physician: YAIR HEBERT - History of Present Illness Patient is a 43 y/o male with PMH of HTN, CAD, chronic systolic HF, s/p AICD, s/p MV replacement, Afib (on coumadin), and noncompliance who presented to ED with c/o chest pain worse with coughing, deep breathing, and palpation (etiology likely pleuritic, however stress test pending for tomorrow). Upon admission, he was found to be jaundice with an elevated bilirubin to which GI has been c onsulted. Patient is previously known to our service from a consult last year for similar symptoms, however workup was unable to be completed at that time due to patient being transferred to [facility] for MV replacement. This morning patient was sitting up in bedside chair w/o acute distress. Reports continued CP but denies wt loss, abd pain, N/V, signs of bleeding or LGI symptoms. No know hx of liver disease, but states he was told last year at [facility] that his "liver was bruised". Admits to heavy alcohol use when he was younger but only drinks occasionally now. No hx of IV drug use. No known Fhx of liver disease. Past History Past Medical History: CAD, COPD, GERD, heart failure, hypertension, hyperlipidemia Past Surgical History: Other (mitral and tricuspid valve Repair, AICD) Social history: smoking, other (alcohol) Medications and Allergies Active Meds: Active Medications Acetaminophen (Tylenol) 650 mg PO Q4H PRN PRN Reason: Pain MILD(1-3)/Fever >100.5/PEREZ Albuterol (Proventil) 2.5 mg IH Q4HRT PRN PRN Reason: Shortness Of Breath Aspirin (Baby Aspirin) 81 mg PO QDAY [facility] Last Admin: 11/01/18 09:12 Dose: 81 mg Documented by: Carvedilol (Coreg) 12.5 mg PO BID [facility] Last Admin: 11/01/18 09:12 Dose: 12.5 mg Documented by: Enoxaparin Sodium (Lovenox) 90 mg 1 mg/kg (90 mg) SUB-Q Q12H [facility] Last Admin: 11/01/18 06:40 Dose: 90 mg Documented by: Famotidine (Pepcid) 20 mg IV BID [facility] Last Admin: 11/01/18 09:12 Dose: 20 mg Documented by: Furosemide (Lasix) 80 mg PO QDAY [facility] Last Admin: 11/01/18 09:12 Dose: 80 mg Documented by: Hydralazine HCl (Apresoline) 75 mg PO Q8HR [facility] Last Admin: 11/01/18 06:42 Dose: 75 mg Documented by: Sodium Chloride (Nacl 0.9% 1000 Ml) 1,000 mls @ 75 mls/hr IV DIRECT [facility] Lisinopril (Zestril) 20 mg PO QDAY [facility] Last Admin: 11/01/18 09:12 Dose: 20 mg Documented by: Nicotine (Habitrol) 7 mg TD Q24HR [facility] Last Admin: 11/01/18 09:14 Dose: Not Given Documented by: Ondansetron HCl (Zofran) 4 mg IV Q8H PRN PRN Reason: Nausea And Vomiting Sodium Chloride (Sodium Chloride Flush Syringe 10 Ml) 10 ml IV BID [facility] Last Admin: 11/01/18 09:13 Dose: 10 ml Documented by: Sodium Chloride (Sodium Chloride Flush Syringe 10 Ml) 10 ml IV PRN PRN PRN Reason: LINE FLUSH Warfarin Sodium (Coumadin) 10 mg PO DAILY@1700 [facility]; Protocol medications reviewed/updated as required Review of Systems - Review of Systems Cardiovascular: chest pain Gastrointestinal: other (jaundice), no abdominal pain, no nausea, no vomiting Exam - Constitutional Vital Signs: Temp Pulse Resp BP Pulse Ox 98.2 F 77 18 103/72 97 11/01/18 08:55 11/01/18 08:55 11/01/18 08:55 11/01/18 08:55 11/01/18 09:03 General appearance: no acute distress - EENT Eyes: PERRL, EOM intact, scleral icterus ENT: hearing intact - Respiratory Respiratory: bilateral: diminished - Cardiovascular Rhythm: regular Heart Sounds: Present: S1 & S2 - Gastrointestinal General gastrointestinal: Present: soft, non-tender, non-distended, normal bowel sounds - Neurologic Neurological: alert and oriented x3 - Labs CBC & Chem 7: 10/31/18 17:37 10/31/18 17:37 Lab Results: Laboratory Results - last 24 hr 10/31/18 10/31/18 10/31/18 17:34 17:37 17:37 WBC 8.3 RBC 4.72 Hgb 12.8 Hct 39.0 MCV 83 L MCH 27 L MCHC 33 RDW 21.2 H Plt Count 307 Lymph % (Auto) 14.1 [place] % (Auto) 12.4 H Eos % (Auto) 1.5 Baso % (Auto) 0.9 Lymph # 1.2 [place] # 1.0 H Eos # 0.1 Baso # 0.1 Seg Neutrophils % 71.1 H Seg Neutrophils # 5.9 PT INR APTT D-Dimer 602.68 H Sodium 140 Potassium 3.7 Chloride 95.4 L Carbon Dioxide 34 H Anion Gap 14 BUN 14 Creatinine 1.1 Estimated GFR > 60 BUN/Creatinine Ratio 13 Glucose 139 H Calcium 9.0 Total Bilirubin Direct Bilirubin Indirect Bilirubin AST ALT Alkaline Phosphatase Troponin T < 0.010 Total Protein Albumin Albumin/Globulin Ratio Hepatitis A IgM Ab Hep Bs Antigen Hep B Core IgM Ab Hepatitis C Antibody 10/31/18 10/31/18 10/31/18 17:37 20:45 21:34 WBC RBC Hgb Hct MCV MCH MCHC RDW Plt Count Lymph % (Auto) [place] % (Auto) Eos % (Auto) Baso % (Auto) Lymph # [place] # Eos # Baso # Seg Neutrophils % Seg Neutrophils # PT 16.8 H INR 1.32 H APTT 22.1 L D-Dimer Sodium Potassium Chloride Carbon Dioxide Anion Gap BUN Creatinine Estimated GFR BUN/Creatinine Ratio Glucose Calcium Total Bilirubin 16.80 H Direct Bilirubin > 10.0 H Indirect Bilirubin 6.8 AST 25 ALT 22 Alkaline Phosphatase 178 H Troponin T < 0.010 Total Protein 7.1 Albumin 3.7 L Albumin/Globulin Ratio 1.1 Hepatitis A IgM Ab Hep Bs Antigen Hep B Core IgM Ab Hepatitis C Antibody 10/31/18 11/01/18 23:11 06:08 WBC RBC Hgb Hct MCV MCH MCHC RDW Plt Count Lymph % (Auto) [place] % (Auto) Eos % (Auto) Baso % (Auto) Lymph # [place] # Eos # Baso # Seg Neutrophils % Seg Neutrophils # PT INR APTT D-Dimer Sodium Potassium Chloride Carbon Dioxide Anion Gap BUN Creatinine Estimated GFR BUN/Creatinine Ratio Glucose Calcium Total Bilirubin Direct Bilirubin Indirect Bilirubin AST ALT Alkaline Phosphatase Troponin T < 0.010 Total Protein Albumin Albumin/Globulin Ratio Hepatitis A IgM Ab Non-reactive Hep Bs Antigen Non-reactive Hep B Core IgM Ab Non-reactive Hepatitis C Antibody Non-reactive Assessment and Plan 1.elevated bilirubin 2.jaundice -abd CT showed liver enlarged and heterogeneous suggestive of fatty infiltration (no mass; gallbladder and biliary ducts unremarkable) -LFTs- T.ender 16.80, Direct ender >10, AST 25, ALT 22, alk phos 178 (T.ender elevated in 2017, then trended down in 2018 and then back up in 2019 per chart reviewed) -hepatitis panel negative -plt WNL, INR 1.32 (on coumadin) -etiology unclear- possibly 2/2 congestive hepatopathy vs other -will order an MRI/MRCP for further evaluation -clinically, patient is w/o GI complaints such as abd pain, N/V, or signs of bleeding -continue to trend labs and supportive care -further recommendations to follow
--- NOTE | 2018-11-01 15:17 | Vascular Lab Report ---
FINAL REPORT EXAM: VL VENOUS DUPLEX LE BILAT HISTORY: elevated d dimers/r/o DVT TECHNIQUE: Doshi scale, color and pulsed Doppler ultrasound with color flow and spectral analysis hola luation of both lower extremities were performed to assess for deep vein thrombosis. PRIORS: None currently available. FINDINGS: RIGHT Extremity: There is normal grayscale appearance and compressibility. Normal phasic pulsed Doppler and normal color Doppler flow are visualized. The interrogated vessels s how normal augmentation. Left Extremity: There is normal grayscale appearance and compressibility. Normal phasic pulsed Doppler and normal color Doppler flow are visualized. The interrogated vessels s how normal augmentation. IMPRESSION: No evidence for DVT.
[2018-11-01] MEDS: COUMADIN PO SCH (17:54)
[2018-11-02] MEDS ORDERED: MORPHINE IV ONE (04:00)
[2018-11-02] MEDS: LOVENOX SUB-Q SCH ×2 (05:44→18:46)
[2018-11-02] MEDS: APRESOLINE PO SCH ×3 (05:44→22:54)
[2018-11-02 06:54] LABS: Basophils # (Auto) 0.1 K/mm3 (0.0-0.1); Eosinophils # (Auto) 0.1 K/mm3 (0.0-0.4); Eosinophils % (Auto) 1.6 % (0.0-4.3); Hematocrit 35.4 % (35.5-45.6); Hemoglobin 11.7 gm/dl (11.8-15.2); Lymphocytes # (Auto) 1.1 K/mm3 (1.2-5.4); Lymphocytes % (Auto) 16.7 % (13.4-35.0); Mean Corpuscular HGB Conc 33 % (32-34); Mean Corpuscular Volume 82 fl (84-94); Monocytes # (Auto) 0.8 K/mm3 (0.0-0.8); Monocytes % (Auto) 11.4 % (0.0-7.3); Platelet Count 289 K/mm3 (140-440); Red Blood Count 4.33 M/mm3 (3.65-5.03); Red Cell Distribution Width 20.7 % (13.2-15.2)
[2018-11-02 07:10] LABS: INR 1.2 (0.87-1.13)
[2018-11-02 07:21] LABS: Alanine Aminotransferase 18 units/L (7-56); Albumin 3.4 g/dL (3.9-5); BUN/Creatinine Ratio 17; Blood Urea Nitrogen 20 mg/dL (9-20); Calcium 8.3 mg/dL (8.4-10.2); Hemolysis Index 0
[2018-11-02] MEDS ORDERED: LEXISCAN IV ONE ×2 (10:03→10:37)
--- NOTE | 2018-11-02 10:28 | Event Note ---
Date: 11/02/18 Patient off floor for stress test. LFTs trending down. MRI/MRCP pending. Further recommendations to follow based on results.
[2018-11-02] MEDS: HABITROL TD SCH (11:50)
[2018-11-02] MEDS: COREG PO SCH ×2 (11:50→22:53)
[2018-11-02] MEDS: ZESTRIL PO SCH (11:50)
[2018-11-02] MEDS: LASIX PO SCH (11:50)
[2018-11-02] MEDS: BABY ASPIRIN PO SCH (11:50)
[2018-11-02] MEDS: SODIUM CHLORIDE FLUSH SYRINGE 10 ML IV SCH ×2 (11:51→22:57)
[2018-11-02] MEDS: PEPCID PO SCH ×2 (11:53→22:53)
--- NOTE | 2018-11-02 15:20 | Gastroenterology Progress Note ---
<LOUIS BOOKER - Last Filed: 11/02/18 15:23> Assessment and Plan 1.elevated bilirubin 2.jaundice -abd CT showed liver enlarged and heterogeneous suggestive of fatty infiltration (no mass; gallbladder and biliary ducts unremarkable) -LFTs- T.ender 13.9 (Direct ender >10), AST 19, ALT 19, alk phos 155- trending down -hepatitis panel negative -plt WNL, INR 1.20 (on coumadin) -patient notes a hx of jaundice ever since CABG at [facility] in 2016 and pacemaker -etiology- suspect jaundice is related to that surgery and to CHF- no evidence o f significant liver synthetic dysfunction or portal HTN -pt unable to undergo MRI/MRCP 2/2 AICD -clinically, patient c/o continued chest pain (stress test pending for today) but is w/o GI complaints such as abd pain, N/V, or signs of bleeding -continue to trend labs and supportive care -recommend patient have further workup/evaluation as an outpatient at [facility] -will sign off, please call if needed Subjective Date of service: 11/02/18 Principal diagnosis: jaundice, elevated bilirubin Interval history: Patient c/o continued CP. No GI complaints. Objective - Constitutional Vitals: Temp Pulse Resp BP Pulse Ox 98.1 F 76 18 123/85 98 11/02/18 12:30 11/02/18 12:30 11/02/18 12:30 11/02/18 12:30 11/02/18 12:12 General appearance: mild distress (due to CP) - Respiratory Respiratory: bilateral: CTA (anterior) - Cardiovascular Rhythm: regular Heart Sounds: Present: S1 & S2 - Gastrointestinal General gastrointestinal: Present: soft, non-tender, non-distended, normal bowel sounds - Neurologic Neurological: alert and oriented x3 - Labs CBC & Chem 7: 11/02/18 06:05 11/02/18 06:05 Labs: Laboratory Results - last 24 hr 11/02/18 11/02/18 11/02/18 06:05 06:05 06:05 WBC 6.7 RBC 4.33 Hgb 11.7 L Hct 35.4 L MCV 82 L MCH 27 L MCHC 33 RDW 20.7 H Plt Count 289 Lymph % (Auto) 16.7 [place] % (Auto) 11.4 H Eos % (Auto) 1.6 Baso % (Auto) 1.0 Lymph # 1.1 L [place] # 0.8 Eos # 0.1 Baso # 0.1 Seg Neutrophils % 69.3 Seg Neutrophils # 4.6 PT 15.6 H INR 1.20 H Sodium 139 Potassium 3.5 L Chloride 97.2 L Carbon Dioxide 27 D Anion Gap 18 BUN 20 Creatinine 1.2 Estimated GFR > 60 BUN/Creatinine Ratio 17 Glucose 124 H Calcium 8.3 L Magnesium 2.10 Total Bilirubin 13.90 H AST 19 ALT 18 Alkaline Phosphatase 155 H Total Protein 6.0 L Albumin 3.4 L Albumin/Globulin Ratio 1.3 <MALLORY ATKINS R - Last Filed: 11/03/18 15:59> Assessment and Plan Jaundice likely related to Cardiac status, with low EF, and possibly surgery, since ongoing since 2015, with no evidence of synthetic dysfunction or portal HTN by labs. Recommendations as above. Objective - Constitutional Vitals: Temp Pulse Resp BP Pulse Ox 98.4 F 77 20 114/75 97 11/03/18 11:40 11/03/18 11:40 11/03/18 11:40 11/03/18 11:40 11/03/18 11:40 - Labs CBC & Chem 7: 11/02/18 06:05 11/02/18 06:05 Labs: Laboratory Results - last 24 hr 11/03/18 05:17 PT 16.4 H INR 1.28 H
--- NOTE | 2018-11-02 16:12 | Progress Note ---
Assessment and Plan Assessment and plan: --Nonischemic cardiomyopathy; ejection fraction 15% Continue anti-failure medications, consult cardiology --Acute on chronic systolic congestive heart failure; Continue anti-failure medications --Status post AICD; stable --Paroxysmal A. 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] TV repair [11/2016] --Hyperbilirubinemia; unknown etiology, LFTs within normal limits GI recommend MRI MRA abdomen, unable to get the tests As patient has ICD, GI following --DVT prophylaxis; patient on Lovenox and Coumadin Closely monitor the patient and adjust management as needed Plan of care is reviewed for the patient and his nurse History Interval history: Patient seen and examined medical records reviewed Patient underwent stress test today, negative for reversible ischemia EF 15%, unable to get MRI abdomen for GI, due to ICD Patient feels better no new complaints Vital signs reviewed Hospitalist Physical - Constitutional Vitals: Temp Pulse Resp BP Pulse Ox 98.3 F 77 18 104/60 94 11/02/18 16:01 11/02/18 16:01 11/02/18 16:01 11/02/18 16:01 11/02/18 16:01 General appearance: Present: no acute distress, well-nourished - EENT Eyes: Present: PERRL, EOM intact - Neck Neck: Present: supple, normal ROM - Respiratory Respiratory effort: normal Respiratory: bilateral: diminished, rales, negative: rhonchi, wheezing - Cardiovascular Rhythm: regular - Extremities Extremities: no ischemia Extremity abnormal: edema - Abdominal General gastrointestinal: soft, non-tender, non-distended, normal bowel sounds - Integumentary Integumentary: Present: clear, warm - Psychiatric Psychiatric: appropriate mood/affect, cooperative - Neurologic Neurologic: CNII-XII intact, moves all extremities Results - Labs CBC & Chem 7: 11/02/18 06:05 11/02/18 06:05 Labs: Laboratory Last Values WBC 6.7 K/mm3 (4.5-11.0) 11/02/18 06:05 RBC 4.33 M/mm3 (3.65-5.03) 11/02/18 06:05 Hgb 11.7 gm/dl (11.8-15.2) L 11/02/18 06:05 Hct 35.4 % (35.5-45.6) L 11/02/18 06:05 MCV 82 fl (84-94) L 11/02/18 06:05 MCH 27 pg (28-32) L 11/02/18 06:05 MCHC 33 % (32-34) 11/02/18 06:05 RDW 20.7 % (13.2-15.2) H 11/02/18 06:05 Plt Count 289 K/mm3 (140-440) 11/02/18 06:05 Lymph % (Auto) 16.7 % (13.4-35.0) 11/02/18 06:05 [place] % (Auto) 11.4 % (0.0-7.3) H 11/02/18 06:05 Eos % (Auto) 1.6 % (0.0-4.3) 11/02/18 06:05 Baso % (Auto) 1.0 % (0.0-1.8) 11/02/18 06:05 Lymph # 1.1 K/mm3 (1.2-5.4) L 11/02/18 06:05 [place] # 0.8 K/mm3 (0.0-0.8) 11/02/18 06:05 Eos # 0.1 K/mm3 (0.0-0.4) 11/02/18 06:05 Baso # 0.1 K/mm3 (0.0-0.1) 11/02/18 06:05 Seg Neutrophils % 69.3 % (40.0-70.0) 11/02/18 06:05 Seg Neutrophils # 4.6 K/mm3 (1.8-7.7) 11/02/18 06:05 PT 15.6 Sec. (12.2-14.9) H 11/02/18 06:05 INR 1.20 (0.87-1.13) H 11/02/18 06:05 APTT 22.1 Sec. (24.2-36.6) L 10/31/18 17:37 D-Dimer 602.68 ng/mlDDU (0-234) H 10/31/18 17:34 Sodium 139 mmol/L (137-145) 11/02/18 06:05 Potassium 3.5 mmol/L (3.6-5.0) L 11/02/18 06:05 Chloride 97.2 mmol/L (98-107) L 11/02/18 06:05 Carbon Dioxide 27 mmol/L (22-30) D 11/02/18 06:05 Anion Gap 18 mmol/L 11/02/18 06:05 BUN 20 mg/dL (9-20) 11/02/18 06:05 Creatinine 1.2 mg/dL (0.8-1.5) 11/02/18 06:05 Estimated GFR > 60 ml/min 11/02/18 06:05 BUN/Creatinine Ratio 17 % 11/02/18 06:05 Glucose 124 mg/dL (75-100) H 11/02/18 06:05 Calcium 8.3 mg/dL (8.4-10.2) L 11/02/18 06:05 Magnesium 2.10 mg/dL (1.7-2.3) 11/02/18 06:05 Total Bilirubin 13.90 mg/dL (0.1-1.2) H 11/02/18 06:05 Direct Bilirubin > 10.0 mg/dL (0-0.2) H 10/31/18 21:34 Indirect Bilirubin 6.8 mg/dL 10/31/18 21:34 AST 19 units/L (5-40) 11/02/18 06:05 ALT 18 units/L (7-56) 11/02/18 06:05 Alkaline Phosphatase 155 units/L (35-129) H 11/02/18 06:05 Troponin T < 0.010 ng/mL (0.00-0.029) 10/31/18 23:11 Total Protein 6.0 g/dL (6.3-8.2) L 11/02/18 06:05 Albumin 3.4 g/dL (3.9-5) L 11/02/18 06:05 Albumin/Globulin Ratio 1.3 % 11/02/18 06:05 Hepatitis A IgM Ab Non-reactive (NonReactive) 11/01/18 06:08 Hep Bs Antigen Non-reactive (Negative) 11/01/18 06:08 Hep B Core IgM Ab Non-reactive (NonReactive) 11/01/18 06:08 Hepatitis C Antibody Non-reactive (NonReactive) 11/01/18 06:08 Nutrition/Malnutrition Assess - Dietary Evaluation Nutrition/Malnutrition Findings: Nutrition Notes Start: 11/01/18 11:15 Freq: Status: Active Protocol: Document 11/01/18 11:15 OH (Rec: 11/01/18 11:23 OH [id number]) Nutrition Notes Need for Assessment generated from: Education Initial or Follow up Brief Note Current Diet cardiac Height 5 ft 8 in Weight 93.4 kg [place] Body Weight (kg) 70.00 BMI 31.3 Intake Prior to Admission Good Subjective/Other Information Consulted for coumadin education. Pt. verbalized he has an MD who he sees to manage his coumadin level. Pt. reports his appetite is good though occasional vomiting. #1 Nutrition Diagnosis Food and nutrition-related knowledge deficit Etiology inadequate education related to low/high vitamin K foods As Evidenced by Signs and Symptoms questions raised regarding what foods effect coumadin level Diagnosis Progress(for reassessment Resolved documentation) Nutrition Intervention Teaching Recipient Patient Learning Readiness Good Teaching Methods Discussion Handout Response to Teaching Verbalize understanding Education Handouts Provided ADA Vit K handout and coumadin Barriers to Learning Cognitive/Verbal Cognitive/Written Motivation Cultural Financial RD phone number provided Yes Patient aware of follow up options Yes Revisit per MD consult or patient Sign Off request:
[2018-11-02] MEDS: COUMADIN PO SCH (18:45)
--- NOTE | 2018-11-02 23:11 | Treadmill Report ---
SINGLE ISOTOPE DUAL STUDY MYOCARDIAL PERFUSION SCAN REPORT REFERRING PHYSICIAN: Teressa Mcclain MD DESCRIPTION OF PROCEDURE: The patient received 10 mCi of technetium 99m Myoview intravenously under resting conditions. Resting myocardial perfusion scan was done. Subsequently, the patient underwent Lexiscan stress test as per the protocol. During Lexiscan stress test, the patient received 28 mCi of technetium 99m Myoview intravenously. After 30-60 minutes, post stress images were done. Computerized reconstruction images were performed for analysis. The post-stress images revealed a moderately dilated left ventricle. A small mild mid inferior wall and a small mild inferoapical perfusion defects were seen. Gated study revealed severe global hypokinesis with a LVEF of 15%. The resting images did not reveal any reversibility in the perfusion defects. CONCLUSIONS: 1. Moderately dilated left ventricle. 2. Small mild fixed mid inferior wall perfusion. 3. Small mild fixed inferoapical perfusion defect. 4. Severe global left ventricular systolic dysfunction with LVEF of 15% (global hypokinesia). [facility]# [id number] [facility]PITALYonas
[2018-11-03 06:26] LABS: INR 1.28 (0.87-1.13)
[2018-11-03] MEDS: APRESOLINE PO SCH ×2 (06:50→13:22)
[2018-11-03] MEDS: LOVENOX SUB-Q SCH (06:50)
[2018-11-03] MEDS: ZESTRIL PO SCH (09:43)
[2018-11-03] MEDS: COREG PO SCH (09:43)
[2018-11-03] MEDS: HABITROL TD SCH (09:43)
[2018-11-03] MEDS: LASIX PO SCH (09:43)
[2018-11-03] MEDS: SODIUM CHLORIDE FLUSH SYRINGE 10 ML IV SCH (09:43)
[2018-11-03] MEDS: PEPCID PO SCH (09:43)
[2018-11-03] MEDS: BABY ASPIRIN PO SCH (09:43)
--- NOTE | 2018-11-03 11:09 | Progress Note ---
Assessment and Plan Assessment and plan: --Nonischemic cardiomyopathy; ejection fraction 15% Continue anti-failure medications, cardiology evaluation and recommendation noted --Acute on chronic systolic congestive heart failure; Continue anti-failure medications --Status post PPM, stable --Paroxysmal A. 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] TV repair [11/2016] --Hyperbilirubinemia; unknown etiology, LFTs within normal limits GI recommend MRI MRA abdomen, unable to get the tests As patient has PPM, GI following --DVT prophylaxis; patient on Lovenox and Coumadin --Medical noncompliance; patient strongly advised to comply with medications and follow-up visits Patient is upset because he does not have a job,no money Has financial issues, no PCP, Unable to afford medications He is angry and verbal Discussed with case management for assistance with medications Closely monitor the patient and adjust management as needed Plan of care is reviewed for the patient and his nurse History Interval history: Patient seen and examined medical records reviewed No new events reported by the nursing staff Patient is currently on Lovenox and Coumadin Subtherapeutic INR Hospitalist Physical - Constitutional Vitals: Temp Pulse Resp BP Pulse Ox 98.0 F 83 18 129/89 95 11/03/18 07:31 11/03/18 07:31 11/03/18 10:00 11/03/18 07:31 11/03/18 08:55 General appearance: Present: no acute distress, well-nourished - EENT Eyes: Present: PERRL, EOM intact - Neck Neck: Present: supple, normal ROM - Respiratory Respiratory effort: normal Respiratory: bilateral: diminished, negative: rales, rhonchi, wheezing - Cardiovascular Rhythm: regular Heart Sounds: Present: S1 & S2 - Extremities Extremities: no ischemia, No edema - Abdominal General gastrointestinal: soft, non-tender, non-distended, normal bowel sounds - Integumentary Integumentary: Present: clear, warm - Psychiatric Psychiatric: appropriate mood/affect, cooperative - Neurologic Neurologic: CNII-XII intact, moves all extremities Results - Labs CBC & Chem 7: 11/02/18 06:05 11/02/18 06:05 Labs: Laboratory Last Values WBC 6.7 K/mm3 (4.5-11.0) 11/02/18 06:05 RBC 4.33 M/mm3 (3.65-5.03) 11/02/18 06:05 Hgb 11.7 gm/dl (11.8-15.2) L 11/02/18 06:05 Hct 35.4 % (35.5-45.6) L 11/02/18 06:05 MCV 82 fl (84-94) L 11/02/18 06:05 MCH 27 pg (28-32) L 11/02/18 06:05 MCHC 33 % (32-34) 11/02/18 06:05 RDW 20.7 % (13.2-15.2) H 11/02/18 06:05 Plt Count 289 K/mm3 (140-440) 11/02/18 06:05 Lymph % (Auto) 16.7 % (13.4-35.0) 11/02/18 06:05 [place] % (Auto) 11.4 % (0.0-7.3) H 11/02/18 06:05 Eos % (Auto) 1.6 % (0.0-4.3) 11/02/18 06:05 Baso % (Auto) 1.0 % (0.0-1.8) 11/02/18 06:05 Lymph # 1.1 K/mm3 (1.2-5.4) L 11/02/18 06:05 [place] # 0.8 K/mm3 (0.0-0.8) 11/02/18 06:05 Eos # 0.1 K/mm3 (0.0-0.4) 11/02/18 06:05 Baso # 0.1 K/mm3 (0.0-0.1) 11/02/18 06:05 Seg Neutrophils % 69.3 % (40.0-70.0) 11/02/18 06:05 Seg Neutrophils # 4.6 K/mm3 (1.8-7.7) 11/02/18 06:05 PT 16.4 Sec. (12.2-14.9) H 11/03/18 05:17 INR 1.28 (0.87-1.13) H 11/03/18 05:17 APTT 22.1 Sec. (24.2-36.6) L 10/31/18 17:37 D-Dimer 602.68 ng/mlDDU (0-234) H 10/31/18 17:34 Sodium 139 mmol/L (137-145) 11/02/18 06:05 Potassium 3.5 mmol/L (3.6-5.0) L 11/02/18 06:05 Chloride 97.2 mmol/L (98-107) L 11/02/18 06:05 Carbon Dioxide 27 mmol/L (22-30) D 11/02/18 06:05 Anion Gap 18 mmol/L 11/02/18 06:05 BUN 20 mg/dL (9-20) 11/02/18 06:05 Creatinine 1.2 mg/dL (0.8-1.5) 11/02/18 06:05 Estimated GFR > 60 ml/min 11/02/18 06:05 BUN/Creatinine Ratio 17 % 11/02/18 06:05 Glucose 124 mg/dL (75-100) H 11/02/18 06:05 Calcium 8.3 mg/dL (8.4-10.2) L 11/02/18 06:05 Magnesium 2.10 mg/dL (1.7-2.3) 11/02/18 06:05 Total Bilirubin 13.90 mg/dL (0.1-1.2) H 11/02/18 06:05 Direct Bilirubin > 10.0 mg/dL (0-0.2) H 10/31/18 21:34 Indirect Bilirubin 6.8 mg/dL 10/31/18 21:34 AST 19 units/L (5-40) 11/02/18 06:05 ALT 18 units/L (7-56) 11/02/18 06:05 Alkaline Phosphatase 155 units/L (35-129) H 11/02/18 06:05 Troponin T < 0.010 ng/mL (0.00-0.029) 10/31/18 23:11 Total Protein 6.0 g/dL (6.3-8.2) L 11/02/18 06:05 Albumin 3.4 g/dL (3.9-5) L 11/02/18 06:05 Albumin/Globulin Ratio 1.3 % 11/02/18 06:05 Hepatitis A IgM Ab Non-reactive (NonReactive) 11/01/18 06:08 Hep Bs Antigen Non-reactive (Negative) 11/01/18 06:08 Hep B Core IgM Ab Non-reactive (NonReactive) 11/01/18 06:08 Hepatitis C Antibody Non-reactive (NonReactive) 11/01/18 06:08 Nutrition/Malnutrition Assess - Dietary Evaluation Nutrition/Malnutrition Findings: Nutrition Notes Start: 11/01/18 11:15 Freq: Status: Active Protocol: Document 11/01/18 11:15 OH (Rec: 11/01/18 11:23 OH [id number]) Nutrition Notes Need for Assessment generated from: Education Initial or Follow up Brief Note Current Diet cardiac Height 5 ft 8 in Weight 93.4 kg [place] Body Weight (kg) 70.00 BMI 31.3 Intake Prior to Admission Good Subjective/Other Information Consulted for coumadin education. Pt. verbalized he has an MD who he sees to manage his coumadin level. Pt. reports his appetite is good though occasional vomiting. #1 Nutrition Diagnosis Food and nutrition-related knowledge deficit Etiology inadequate education related to low/high vitamin K foods As Evidenced by Signs and Symptoms questions raised regarding what foods effect coumadin level Diagnosis Progress(for reassessment Resolved documentation) Nutrition Intervention Teaching Recipient Patient Learning Readiness Good Teaching Methods Discussion Handout Response to Teaching Verbalize understanding Education Handouts Provided ADA Vit K handout and coumadin Barriers to Learning Cognitive/Verbal Cognitive/Written Motivation Cultural Financial RD phone number provided Yes Patient aware of follow up options Yes Revisit per MD consult or patient Sign Off request:
--- NOTE | 2018-11-03 15:22 | Consultation ---
History of Present Illness Consult date: 11/03/18 Requesting physician: MARJORIE BURROWS Consult reason: congestive heart failure History of present illness: The pt is a 42 YO male with a past medical history significant for chronic systolic HF, presumed nonischemic CMP, s/p MV replacement with tissue prosthesis (11/2016), and TV repair (11/2016), PPM in situ for postoperative CHB, paroxysmal atrial fibrillation, anticoagulated with coumadin, HTN, noncompliance. He is fo llowed in our office by Dr. Jennings. He presented with c/o LUQ abdominal pain which is aggravated by deep inspiration and coughing. He denies any chest pain, SOB, palpitations, n/v, diaphoresis, dizziness or syncope. He admits to noncompliance with his coumadin due to financial issues but reports compliance with all other medications. He was found to be jaundiced with an elevated bilirubin and per GI team, no evidence of significant liver synthetic dysfunction or portal HTN, pt unable to undergo MRI/MRCP 2/2 implanted cardiac device. Cardiology has been consulted for HF, pt with no current clinical evidence of acutely decompensated HF. Echo done 05/2018 showed EF 15-20%, LA and RA dilated, RV dilated and hypokinetic, pacemaker electrode in right sided chambers, bioprosthetic valve in mitral position functioning normally, mod AR, no , mod TR, pulm HTN RVSP 65mmHg. Lexiscan MPI stress test done yesterday was negative for ischemia, EF 15%. Past History Past Medical History: CAD, heart failure, hypertension, hyperlipidemia Past Surgical History: Other (mitral and tricuspid valve Repair) Social history: smoking, other (alcohol) Medications and Allergies Allergies Allergy/AdvReac Type Severity Reaction Status Date / Time No Known Allergies Allergy Verified 08/18/16 21:37 Home Medications Medication Instructions Recorded Confirmed Last Taken Type Potassium Chloride 10 meq PO QDAY #30 capsule.er 12/01/16 11/01/18 Unknown Rx hydrALAZINE [Apresoline TAB] 75 mg PO Q8HR #90 tablet 12/01/16 11/01/18 Unknown Rx Aspirin [Aspirin TAB] 325 mg PO QDAY 12/09/16 11/01/18 Unknown History ALBUTEROL Inhaler (OR & NICU) 2 puff IH QID PRN #1 inhalation 11/26/17 11/01/18 Unknown Rx [ProAir HFA Inhaler] HYDROcodone/APAP 5-325 [Hawkins 1 each PO Q6HR PRN #12 tablet 11/26/17 11/01/18 Unknown Rx 5-325 mg TAB] predniSONE [Deltasone] 20 mg PO QDAY #5 tab 11/26/17 11/01/18 Unknown Rx Furosemide [Lasix TAB] 80 mg PO QDAY 12/12/17 11/01/18 Unknown History Warfarin [Coumadin] 10 mg PO QDAY 12/12/17 11/01/18 Unknown History Carvedilol [Coreg] 12.5 mg PO BID #60 tablet 12/15/17 11/01/18 Unknown Rx Furosemide [Lasix TAB] 80 mg PO QDAY@0600 tablet 12/15/17 11/01/18 Unknown Rx Lisinopril [Zestril TAB] 20 mg PO QDAY #30 tablet 12/15/17 11/01/18 Unknown Rx Nicotine [Habitrol] 7 mg TD Q24H #14 patch 12/15/17 11/01/18 Unknown Rx guaiFENesin/CODEINE [Robitussin AC] 10 ml PO Q4H PRN #1 bottle 12/15/17 11/01/18 Unknown Rx predniSONE [Deltasone] 10 mg PO .TAPER #21 tab 12/15/17 11/01/18 Unknown Rx HYDROcodone/ACETAMINOPHEN [Hawkins 1 each PO Q6H PRN #10 tablet 12/27/17 11/01/18 Unknown Rx 5-325 Tablet] Active Meds: Active Medications Acetaminophen (Tylenol) 650 mg PO Q4H PRN PRN Reason: Pain MILD(1-3)/Fever >100.5/PEREZ Last Admin: 11/02/18 03:56 Dose: 650 mg Documented by: Albuterol (Proventil) 2.5 mg IH Q4HRT PRN PRN Reason: Shortness Of Breath Aspirin (Baby Aspirin) 81 mg PO QDAY [facility] Last Admin: 11/03/18 09:43 Dose: 81 mg Documented by: Carvedilol (Coreg) 12.5 mg PO BID [facility] Last Admin: 11/03/18 09:43 Dose: 12.5 mg Documented by: Enoxaparin Sodium (Lovenox) 90 mg 1 mg/kg (90 mg) SUB-Q Q12H [facility] Last Admin: 11/03/18 06:50 Dose: 90 mg Documented by: Famotidine (Pepcid) 20 mg PO BID [facility] Last Admin: 11/03/18 09:43 Dose: 20 mg Documented by: Furosemide (Lasix) 80 mg PO QDAY [facility] Last Admin: 11/03/18 09:43 Dose: 80 mg Documented by: Hydralazine HCl (Apresoline) 75 mg PO Q8HR [facility] Last Admin: 11/03/18 13:22 Dose: 75 mg Documented by: Sodium Chloride (Nacl 0.9% 1000 Ml) 1,000 mls @ 75 mls/hr IV DIRECT [facility] Lisinopril (Zestril) 20 mg PO QDAY [facility] Last Admin: 11/03/18 09:43 Dose: 20 mg Documented by: Nicotine (Habitrol) 7 mg TD Q24HR [facility] Last Admin: 11/03/18 09:43 Dose: 7 mg Documented by: Ondansetron HCl (Zofran) 4 mg IV Q8H PRN PRN Reason: Nausea And Vomiting Sodium Chloride (Sodium Chloride Flush Syringe 10 Ml) 10 ml IV BID [facility] Last Admin: 11/03/18 09:43 Dose: 10 ml Documented by: Sodium Chloride (Sodium Chloride Flush Syringe 10 Ml) 10 ml IV PRN PRN PRN Reason: LINE FLUSH Warfarin Sodium (Coumadin) 10 mg PO DAILY@1700 [facility]; Protocol Warfarin Sodium (Coumadin) 2.5 mg PO DAILY@1700 [facility] Review of Systems Constitutional: no weight loss, no weight gain, no fever, no chills, no sweats Ears, nose, mouth and throat: no ear pain, no nose pain, no sinus pressure, no sinus pain Cardiovascular: no chest pain, no orthopnea, no palpitations, no rapid/irregular heart beat, no edema, no syncope, no lightheadedness, no shortness of breath, no dyspnea on exertion, no high blood pressure, no leg edema, no decreased exercise tolerance Respiratory: pain on inspiration, no cough, no shortness of breath, no dyspnea on exertion, no congestion, no wheezing Gastrointestinal: abdominal pain, no nausea, no vomiting, no diarrhea, no constipation, no change in bowel habits Genitourinary Male: no dysuria, no hematuria, no flank pain, no discharge, no urinary frequency, no urinary hesitancy Musculoskeletal: no neck stiffness, no neck pain, no shooting arm pain, no arm numbness/tingling, no low back pain, no shooting leg pain Integumentary: no rash, no pruritis, no redness, no sores, no wounds Neurological: no head injury, no paralysis, no weakness, no parathesias, no numbness, no tingling, no seizures, no syncope Psychiatric: no anxiety Endocrine: no cold intolerance, no heat intolerance Hematologic/Lymphatic: no easy bruising, no easy bleeding Allergic/Immunologic: no urticaria, no wheezing Physical Examination Vital Signs Temp Pulse Resp BP Pulse Ox 99.1 F 105 H 16 141/96 97 10/31/18 17:14 10/31/18 17:14 10/31/18 17:14 10/31/18 17:14 10/31/18 17:14 General appearance: no acute distress HEENT: Positive: PERRL, Normocephaly, Mucus Membranes Moist Neck: Positive: neck supple, trachea midline Cardiac: Positive: Reg Rate and Rhythm, S1/S2 Lungs: Positive: Decreased Breath Sounds Neuro: Positive: Grossly Intact Abdomen: Positive: Soft Skin: Negative: Rash, Wound Musculoskeletal: No Pain Extremities: Absent: edema Results 11/02/18 06:05 11/02/18 06:05 Coagulation 11/03/18 Range/Units 05:17 PT 16.4 H (12.2-14.9) Sec. INR 1.28 H (0.87-1.13) - Imaging and Cardiology Echo: report reviewed (05/2018 showed EF 15-20%, LA and RA dilated, RV dilated and hypokinetic, pacemaker electrode in right sided chambers, bioprosthetic valve in mitral position functioning normally, mod AR, no , mod TR, pulm HTN RVSP 65mmHg. ) EKG: report reviewed, image reviewed EKG interpretations - Telemetry EKG Rhythm: Paced Pacemaker: ventricular pacing w/capt Assessment and Plan Pt presented with c/o abdominal pain. He was found to be jaundiced with an elevated bilirubin and per GI team, no evidence of significant liver synthetic dysfunction or portal HTN, pt unable to undergo MRI/MRCP 2/2 implanted cardiac device. Cardiology has been consulted for HF, pt with no current clinical evidence of acutely decompensated HF. Echo done 05/2018 showed EF 15-20%, LA and RA dilated, RV dilated and h ypokinetic, pacemaker electrode in right sided chambers, bioprosthetic valve in mitral position functioning normally, mod AR, no , mod TR, pulm HTN RVSP 65mmHg. Lexiscan MPI stress test done yesterday was negative for ischemia, EF 15%. Currently stable cardiac status. Nothing further to add from cardiac perspective at this time. Resume home cardiac regimen. Will sign off. Will plan for eval as OP for possible PPM upgrade to AICD. Recommend follow up in our office with Dr. Jennings within 1-2 weeks of hospital discharge ([phone]). The patient has been seen in conjunction with Dr. Cerda who agrees with the assessment and plan of care. - Patient Problems (1) Abdominal pain Current Visit: Yes Status: Acute (2) Fatty liver Current Visit: Yes Status: Chronic (3) Chronic HFrEF (heart failure with reduced ejection fraction) Current Visit: Yes Status: Acute (4) Nonischemic cardiomyopathy Current Visit: Yes Status: Chronic (5) H/O tricuspid valve repair Current Visit: Yes Status: Chronic (6) History of mitral valve replacement with bioprosthetic valve Current Visit: Yes Status: Chronic (7) Paroxysmal atrial fibrillation Current Visit: Yes Status: Chronic (8) HTN (hypertension) Current Visit: Yes Status: Chronic Qualifiers: Hypertension type: essential hypertension Qualified Code(s): I10 - Essential (primary) hypertension (9) Cardiac pacemaker in situ Current Visit: Yes Status: Chronic (10) Noncompliance with medication regimen Current Visit: Yes Status: Chronic
[2018-11-03 16:22] VITALS: BP 121/87
[2018-11-03] MEDS ORDERED: COUMADIN PO SCH ×2 (17:00)
--- NOTE | 2018-11-03 18:34 | Discharge Summary ---
Providers - Providers Date of Admission: 11/01/18 02:44 Attending physician: MARJORIE BURROWS 11/01/18 02:15 Consult to Physician [CONS] Urgent Comment: Dr. Medina spoke with Dr. Quan @ [phone] Consulting Provider: MALLORY QUAN Physician Instructions: Reason For Exam: elevated bilirubin 11/03/18 11:08 Consult to Physician [CONS] Routine Comment: Consulting Provider: JAYCOB TOBIN Physician Instructions: Reason For Exam: worsening CHF[ EF 15%] Primary care physician: JIMMY LIND Hospitalization Reason for admission: chest pain Condition: Poor Pertinent studies: Chest x-ray; heart is enlarged status post open heart surgery no infiltrates or effusions pneumothorax pacemakers in position CT abdomen and pelvis; liver is enlarged and heterogeneous fatty infiltration Lower extremity venous Doppler negative DVT; CTA chest; enlarged heart no PE, no infiltrates, fibrotic changes versus atelectasis at lung base Stress test; moderately dilated left ventricle, mild fixed inferior wall perfusion, mild fixed inferior wall perfusion, severe global systolic dysfunction EF 15% Hospital course: 43-year-old male patient with the extensive cardiac history noncompliant with medications tobacco and alcohol abuse, coronary artery disease severe cardiomyopathy and AICD A. fibOn chronic anticoagulation tricuspid and mitral valve replacement was admitted through emergency room with chest pain Patient was extensively evaluated medications optimized Cardiology and GI evaluated the patient, however in the middle of the treatment patient did not want to stay in the hospital anymore And left AGAINST MEDICAL ADVICE Final diagnosis and management; --Nonischemic cardiomyopathy; ejection fraction 15% Continue anti-failure medications, cardiology evaluation and recommendation noted --Acute on chronic systolic congestive heart failure; Continue anti-failure medications --Status post PPM, stable --Paroxysmal A. 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] TV repair [11/2016] --Hyperbilirubinemia; unknown etiology, LFTs within normal limits GI recommend MRI MRA abdomen, unable to get the tests As patient has PPM, GI following --DVT prophylaxis; patient on Lovenox and Coumadin --Medical noncompliance; patient strongly advised to comply with medications and follow-up visits Patient is upset because he does not have a job,no money Has financial issues, no PCP, Unable to afford medications He is angry and verbal Patient left AMA Disposition: DC-07 LEFT AGAINST MED ADVICE Time spent for discharge: 32 min Core Measure Documentation - Palliative Care Palliative Care/ Comfort Measures: Not Applicable - Core Measures Any of the following diagnoses?: heart failure - Heart Failure Discharge Requirements KAREN/ARB for LVSD if EF <40%: Yes Beta trev at discharge: Yes Exam - Constitutional Vitals: Temp Pulse Resp BP Pulse Ox 98.0 F 78 18 121/87 99 11/03/18 15:11 11/03/18 15:11 11/03/18 15:11 11/03/18 15:11 11/03/18 15:11 General appearance: Present: no acute distress, well-nourished - EENT Eyes: Present: PERRL, EOM intact - Neck Neck: Present: supple, normal ROM - Respiratory Respiratory effort: normal - Cardiovascular Rhythm: regular Heart Sounds: Present: S1 & S2 - Extremities Extremities: no ischemia Extremity abnormal: edema - Abdominal General gastrointestinal: Present: soft, non-tender, non-distended, normal bowel sounds - Integumentary Integumentary: Present: clear, warm - Musculoskeletal Musculoskeletal: strength equal bilaterally, generalized weakness - Psychiatric Psychiatric: appropriate mood/affect, cooperative - Neurologic Neurologic: moves all extremities Plan Follow up with: JIMMY LIND MD [Primary Care Provider] - 3-5 Days Forms: AMA Form, Warfarin Discharge Instruction
== END 2018-11-03 18:18 | disposition left against medical advice (07) | DRG 205 ==
LOC: ED 16:42 → 4A 11-01 02:44
PROVIDERS: ADMIT Internal Medicine; ATTEND Internal Medicine
DX: M94.0 Chondrocostal junction syndrome [Tietze] (principal); I50.23 Acute on chronic systolic (congestive) heart failure; R17 Unspecified jaundice; I42.8 Other cardiomyopathies; J44.1 Chronic obstructive pulmonary disease with (acute) exacerbation; J44.0 Chronic obstructive pulmonary disease with (acute) lower respiratory infection; J20.9 Acute bronchitis, unspecified; I48.0 Paroxysmal atrial fibrillation; R74.0 Nonspecific elevation of levels of transaminase and lactic acid dehydrogenase [LDH]; I25.10 Atherosclerotic heart disease of native coronary artery without angina pectoris; M54.5 Low back pain; M54.10 Radiculopathy, site unspecified; I11.0 Hypertensive heart disease with heart failure; E78.5 Hyperlipidemia, unspecified; K21.9 Gastro-esophageal reflux disease without esophagitis; F17.200 Nicotine dependence, unspecified, uncomplicated; Z79.82 Long term (current) use of aspirin; Z95.810 Presence of automatic (implantable) cardiac defibrillator; Z79.01 Long term (current) use of anticoagulants; Z95.2 Presence of prosthetic heart valve; Z91.14 Patient's other noncompliance with medication regimen; Z79.899 Other long term (current) drug therapy; Z95.1 Presence of aortocoronary bypass graft
CPT/HCPCS: 36415; 71045; 71275; 74177; 78452; 80048; 80053; 80074; 80076; 83735; 84484; 85025; 85379; 85610; 85730; 93005; 93010; 93017; 93970; 99406; G0378; A9502; J1650; J2270; J2405; J2785; Q9967

== ENCOUNTER 2022-04-01 13:10 | Inpatient (IN) | payer MEDICARE, MEDICAID ==
--- NOTE | 2022-04-01 14:03 | XRay Report ---
CHEST 2 VIEWS INDICATION / CLINICAL INFORMATION: Chest Pain. COMPARISON: 11/10/18 FINDINGS: SUPPORT DEVICES: None. HEART / MEDIASTINUM: Heart is enlarged but stable. Median sternotomy wires are unchanged. Biventricul ar AICD with leads in expected position. LUNGS / PLEURA: No significant pulmonary or pleural abnormality. No pneumothorax. ADDITIONAL FINDINGS: No significant additional findings. IMPRESSION: 1. Stable cardiomegaly. No acute pulmonary or pleural findings. Signer Name: Yonas Hampton MD Signed: 04/01/2022 1:58 PM Workstation Name: [id number]
[2022-04-01 14:58] LABS: Basophils # (Auto) 0.1 K/mm3 (0.0-0.1); Basophils % (Auto) 1.4 % (0.0-1.8); Eosinophils # (Auto) 0.1 K/mm3 (0.0-0.4); Eosinophils % (Auto) 1.6 % (0.0-4.3); Hematocrit 41.3 % (35.5-45.6); Hemoglobin 13.8 gm/dl (11.8-15.2); Lymphocytes # (Auto) 1.2 K/mm3 (1.2-5.4); Lymphocytes % (Auto) 20.9 % (13.4-35.0); Mean Corpuscular HGB Conc 33 % (32-34); Mean Corpuscular Volume 87 fl (84-94); Monocytes # (Auto) 0.9 K/mm3 (0.0-0.8); Platelet Count 223 K/mm3 (140-440); Red Blood Count 4.74 M/mm3 (3.65-5.03); Red Cell Distribution Width 17.4 % (13.2-15.2)
[2022-04-01 15:21] LABS: Alanine Aminotransferase 21 units/L (7-56); Albumin 3.8 g/dL (3.9-5); BUN/Creatinine Ratio 16; Blood Urea Nitrogen 18 mg/dL (9-20); Calcium 8.8 mg/dL (8.4-10.2); Hemolysis Index 0
--- NOTE | 2022-04-01 16:36 | Event Note ---
ED Screening Note ED Screening Note: CO CP/SOB AND ABD PAIN HX CHF SEE EMR This initial assessment/diagnostic orders/clinical plan/treatment(s) is/are subject to change based on patients health status, clinical progression and re- assessment by fellow clinical providers in the ED. Further treatment and workup at subsequent clinical providers discretion. Patient/guardian urged not to elope from the ED as their condition may be serious if not clinically assessed and managed. Initial orders include: LABS
--- NOTE | 2022-04-01 18:11 | Ultrasound Report ---
Abdominal ultrasound INDICATION: Right upper quadrant pain FINDINGS: Aorta appears normal. IVC visualized appears normal. Gallbladder sludge with mobile gallsto zi. Thickened gallbladder wall measuring 4 mm in the gallbladder slightly contracted. The liver is e nlarged measuring 17.7 cm with fatty infiltration. Portal vein is slightly prominent and pulsatile. H epatopedal flow. Common bile measures 5 mm. Visualized portions of pancreas appear normal. IMPRESSION: 1. Hepatomegaly with hepatic steatosis. Hepatopedal flow in the portal vein which is patent with mild pulsatility. 2. Cholelithiasis with gallbladder wall thickening and gallbladder sludge. Findings could represent e cristina cholecystitis. No surrounding pericholecystic fluid is identified. Clinical correlation with exa m and history. Signer Name: Logan Strickland MD Signed: 04/01/2022 6:07 PM Workstation Name: [id number]
[2022-04-01 19:03] LABS: Bilirubin,Direct 10.5 mg/dL (0-0.2)
--- NOTE | 2022-04-01 19:38 | History and Physical Report ---
History of Present Illness Chief complaint: My legs are swollen and I am short of breath History of present illness: 46 YO Male with CHF(EF 25%), CAD S/P CABG, Paroxysmal Atrial Fib not on therapeutic anticoagulation, HTN, HLD presents to ED for evaluation. Patient reports "my legs are swollen and I feel short of breath". Patient states that over the past 2 weeks he has experienced shortness of breath, dyspnea on exertion, dyspnea at rest, decreased exercise tolerance, orthopnea, paroxysmal nocturnal dyspnea, and 15 pound weight gain with worsening symptoms over the past few days. Patient transported to [facility] via private vehicle for further care and evaluation of the aforementioned symptoms. The patient was seen and evaluated in the emergency department. All lab and imaging studies reviewed. To have symptoms consistent with CHF decompensation, hyperkalemia, obstructive jaundice with concomitant portal hypertension. Patient admitted to telemetry and initiated on CHF protocol due to increased risk of worsening symptoms and for medical stabilization. GI team consulted in ED. Patient denies fever, c hills, chest pain, palpitation, adductive cough, skin rash, recent contact, or known exposure to COVID-19. Prior admission on 11/01/2018 reviewed. No medication listed at time of admission for reconciliation. Advanced care planning conducted in ED. Past History Past Medical History: atrial fib, heart failure, hypertension, hyperlipidemia, other (See HPI) Past Surgical History: valve replacement, CABG, Other (AICD placement,) Social history: single. denies: smoking, alcohol abuse, prescription drug abuse Family history: diabetes, hypertension Medications and Allergies Allergies Allergy/AdvReac Type Severity Reaction Status Date / Time No Known Allergies Allergy Verified 08/18/16 21:37 Home Medications Medication Instructions Recorded Confirmed Last Taken Type Potassium Chloride 10 meq PO QDAY #30 capsule.er 12/01/16 11/01/18 Unknown Rx hydrALAZINE [Apresoline TAB] 75 mg PO Q8HR #90 tablet 12/01/16 11/01/18 Unknown Rx Aspirin 325 mg PO QDAY 12/09/16 11/01/18 Unknown History Albuterol Mdi (or & Nicu Only) 2 puff IH QID PRN #1 inhalation 11/26/17 11/01/18 Unknown Rx [ProAir HFA Inhaler] HYDROcodone/APAP 5-325 [[place] 1 each PO Q6HR PRN #12 tablet 11/26/17 11/01/18 Un known Rx 5-325 mg TAB] predniSONE [Deltasone] 20 mg PO QDAY #5 tab 11/26/17 11/01/18 Unknown Rx Furosemide [Lasix TAB] 80 mg PO QDAY 12/12/17 11/01/18 Unknown History Warfarin [Coumadin] 10 mg PO QDAY 12/12/17 11/01/18 Unknown History Furosemide [Lasix TAB] 80 mg PO QDAY@0600 tablet 12/15/17 11/01/18 Unknown Rx Nicotine [Habitrol] 7 mg TD Q24H #14 patch 12/15/17 11/01/18 Unknown Rx carvediloL [Coreg] 12.5 mg PO BID #60 tablet 12/15/17 11/01/18 Unknown Rx guaiFENesin/CODEINE [Robitussin AC] 10 ml PO Q4H PRN #1 bottle 12/15/17 11/01/18 Unknown Rx lisinopriL [Zestril TAB] 20 mg PO QDAY #30 tablet 12/15/17 11/01/18 Unknown Rx predniSONE 10 mg PO .TAPER #21 tab 12/15/17 11/01/18 Unknown Rx HYDROcodone/ACETAMINOPHEN [[place] 1 each PO Q6H PRN #10 tablet 12/27/17 11/01/18 Unknown Rx 5-325 Tablet] Review of Systems Constitutional: weight gain, fatigue, no weight loss, no chills, no sweats Ears, nose, mouth and throat: no ear pain, no ear discharge, no decreased hearing Cardiovascular: orthopnea, edema, shortness of breath, dyspnea on exertion, paroxysmal nocturnal dyspnea, leg edema, decreased exercise tolerance, no chest pain Respiratory: no cough, no cough with sputum Gastrointestinal: no abdominal pain, no nausea, no vomiting, no diarrhea, no constipation Genitourinary Male: no hematuria, no flank pain, no discharge, no urinary frequency, no urinary hesitancy Rectal: no pain, no incontinence, no bleeding Musculoskeletal: no arm numbness/tingling, no low back pain, no shooting leg pain Integumentary: no rash, no pruritis, no sores, no wounds Neurological: no head injury, no paralysis, no numbness, no seizures Psychiatric: no anxiety, no change in sleep habits, no insomnia, no hypersomnia, no change in libido Endocrine: no cold intolerance, no polyphagia, no excessive thirst, no polydipsia Hematologic/Lymphatic: no easy bruising, no easy bleeding Allergic/Immunologic: no allergic rhinitis, no wheezing Exam - Constitutional Vitals: Temp Pulse Resp BP Pulse Ox 97.9 F 90 20 131/86 97 04/01/22 13:15 04/01/22 13:15 04/01/22 13:15 04/01/22 13:15 04/01/22 13:15 General appearance: Present: mild distress - EENT Eyes: Present: PERRL ENT: hearing intact, clear oral mucosa - Neck Neck: Present: supple, normal ROM, masses or JVD - Respiratory Respiratory effort: normal Respiratory: bilateral: diminished, rales - Cardiovascular Rhythm: irregularly irregular Heart Sounds: Present: S1 & S2. Absent: rub, click - Extremities Extremities: pulses symmetrical, No edema Extremity abnormal: edema Peripheral Pulses: within normal limits - Abdominal General gastrointestinal: Present: soft, non-tender, non-distended, normal bowel sounds Male genitourinary: Present: normal - Integumentary Integumentary: Present: warm, jaundice - Musculoskeletal Musculoskeletal: generalized weakness - Psychiatric Psychiatric: appropriate mood/affect, intact judgment & insight - Neurologic Neurologic: CNII-XII intact, moves all extremities HEART Score - HEART Score Troponin: Troponin T < 0.010 ng/mL (0.00-0.029) 04/01/22 17:50 Results - Labs CBC & Chem 7: 04/01/22 14:04 04/01/22 14:04 Labs: Abnormal lab results 04/01/22 04/01/22 04/01/22 Range/Units 14:04 14:04 17:50 RDW 17.4 H (13.2-15.2) % Mora % (Auto) 15.0 H (0.0-7.3) % Mora # (Auto) 0.9 H (0.0-0.8) K/mm3 Potassium 2.9 L* (3.6-5.0) mmol/L Chloride 97.4 L (98-107) mmol/L Total Bilirubin 16.10 H (0.1-1.2) mg/dL Direct Bilirubin (0-0.2) mg/dL Alkaline Phosphatase 157 H (35-129) units/L NT-Pro-B Natriuret Pep 2850 H (0-450) pg/mL Albumin 3.8 L (3.9-5) g/dL 04/01/22 Range/Units 17:50 RDW (13.2-15.2) % Mora % (Auto) (0.0-7.3) % Mora # (Auto) (0.0-0.8) K/mm3 Potassium (3.6-5.0) mmol/L Chloride (98-107) mmol/L Total Bilirubin 16.90 H (0.1-1.2) mg/dL Direct Bilirubin 10.5 H (0-0.2) mg/dL Alkaline Phosphatase (35-129) units/L NT-Pro-B Natriuret Pep (0-450) pg/mL Albumin (3.9-5) g/dL Assessment and Plan - Patient Problems (1) Acute CHF (congestive heart failure) Status: Acute Qualifiers: Qualified Code(s): I50.41 - Acute combined systolic (congestive) and diastolic (congestive) heart failure Plan to address problem: CHF protocol: Strict I's and O, monitor renal progression, daily weight, afterload reduction and blood pressure control, supplemental oxygen, diuresis with Lasix therapy, thyroid panel, magnesium level, cardiology team consulted. (2) Paroxysmal atrial fibrillation Status: Acute Plan to address problem: Cardiology team consulted, supportive care. Telemetry monitoring. (3) Obstructive jaundice Status: Acute Plan to address problem: Abdominal ultrasound, CT scan abdomen pelvis, GI team consulted. Repeat LFTs in AM. (4) Portal hypertension Status: Acute Plan to address problem: GI team consulted, continue medical management. Supportive care. (5) DVT prophylaxis Status: Acute Plan to address problem: SCD to bilateral lower extremities while in bed (6) Advance care planning Status: Acute Plan to address problem: Disease education data, care plan discussed, diagnosis discussed, prognosis discussed, patient is full code. Patient knowledges understanding and agreement with care plan, +30 minutes. (7) Preventative health care Status: Acute Plan to address problem: Patient counseled regarding medication compliance, outpatient follow-up with cardiology and GI subspecialist, patient counseled to follow-up with primary care physician for all age and risk factor appropriate screening test. +30 minutes.
[2022-04-01] MEDS ORDERED: HYDROmorphone 0.5 MG/0.5 ML INJ IV PRN (19:59)
[2022-04-01] MEDS ORDERED: ONDANSETRON 4 MG/2 ML INJ IV PRN (19:59)
[2022-04-01] MEDS ORDERED: ALBUTEROL 2.5 MG/3 ML NEBU IH PRN (19:59)
[2022-04-01] MEDS ORDERED: oxyCODONE /ACETAMINOPHEN 5-325MG TAB PO PRN (19:59)
[2022-04-01] MEDS ORDERED: ACETAMINOPHEN 325 MG TAB PO PRN (19:59)
[2022-04-01] MEDS ORDERED: guaiFENesin/CODEINE 100-10MG ORAL LIQD 5 ML PO PRN (20:01)
--- NOTE | 2022-04-01 20:04 | Emergency Department Report ---
ED General Adult HPI - General Chief complaint: Chest Pain Stated complaint: CHEST PAIN/DIFFIBULATOR/SWOLLEN LEGS Time Seen by Provider: 04/01/22 17:03 Source: patient Mode of arrival: Ambulatory Limitations: No Limitations - History of Present Illness Initial comments: The patient presents to the emergency department the chief complaint of chest pain has been present for the last 3 days is located throughout his entire chest on my evaluation. Patient states his chest pain is secondary to buildup of fluid which Is secondary to his cirrhosis. Patient states that he is taking his water pill as prescribed but the fluid keeps building up. He states that his legs are severely tight and that his abdomen is also becoming distended. -: Gradual Location: chest Radiation: non-radiation Severity scale (0 -10): 8 Quality: sharp Consistency: constant Improves with: none Worsens with: none Associated Symptoms: denies other symptoms Treatments Prior to Arrival: none - Related Data Home Medications Medication Instructions Recorded Confirmed Last Taken Aspirin 325 mg PO QDAY 12/09/16 11/01/18 Unknown Furosemide [Lasix TAB] 80 mg PO QDAY 12/12/17 11/01/18 Unknown Warfarin [Coumadin] 10 mg PO QDAY 12/12/17 11/01/18 Unknown Previous Rx's Medication Instructions Recorded Last Taken Type Potassium Chloride 10 meq PO QDAY #30 capsule.er 12/01/16 Unknown Rx hydrALAZINE [Apresoline TAB] 75 mg PO Q8HR #90 tablet 12/01/16 Unknown Rx Albuterol Mdi (or & Nicu Only) 2 puff IH QID PRN #1 inhalation 11/26/17 Unknown Rx [ProAir HFA Inhaler] HYDROcodone/APAP 5-325 [[place] 1 each PO Q6HR PRN #12 tablet 11/26/17 Unknown Rx 5-325 mg TAB] predniSONE [Deltasone] 20 mg PO QDAY #5 tab 11/26/17 Unknown Rx Furosemide [Lasix TAB] 80 mg PO QDAY@0600 tablet 12/15/17 Unknown Rx Nicotine [Habitrol] 7 mg TD Q24H #14 patch 12/15/17 Unknown Rx carvediloL [Coreg] 12.5 mg PO BID #60 tablet 12/15/17 Unknown Rx guaiFENesin/CODEINE [Robitussin AC] 10 ml PO Q4H PRN #1 bottle 12/15/17 Unknown Rx lisinopriL [Zestril TAB] 20 mg PO QDAY #30 tablet 12/15/17 Unknown Rx predniSONE 10 mg PO .TAPER #21 tab 12/15/17 Unknown Rx HYDROcodone/ACETAMINOPHEN [[place] 1 each PO Q6H PRN #10 tablet 12/27/17 Unknown Rx 5-325 Tablet] Allergies Allergy/AdvReac Type Severity Reaction Status Date / Time No Known Allergies Allergy Verified 08/18/16 21:37 ED Review of Systems ROS: Stated complaint: CHEST PAIN/DIFFIBULATOR/SWOLLEN LEGS Other details as noted in HPI Comment: All other systems reviewed and negative Constitutional: denies: chills, fever Eyes: denies: eye pain, eye discharge, vision change ENT: denies: ear pain, throat pain Respiratory: denies: cough, shortness of breath, wheezing Cardiovascular: chest pain. denies: palpitations Endocrine: no symptoms reported Gastrointestinal: denies: abdominal pain, nausea, diarrhea Genitourinary: denies: urgency, dysuria Musculoskeletal: denies: back pain, joint swelling, arthralgia Skin: denies: rash, lesions Neurological: denies: headache, weakness, paresthesias Psychiatric: denies: anxiety, depression Hematological/Lymphatic: denies: easy bleeding, easy bruising ED Past Medical Hx - Past Medical History Previous Medical History?: Yes Hx Hypertension: Yes Hx Congestive Heart Failure: Yes Hx Diabetes: No Hx Liver Disease: Yes Hx Asthma: No Hx COPD: No - Surgical History Past Surgical History?: Yes Hx Open Heart Surgery: Yes Hx Pacemaker: Yes Additional Surgical History: AICD, mitral valve replacement with tissue prosthesis 2016, tricuspid valve repair 11/26 done at 19. Paroxysmal atrial fibrillation - Social History Smoking Status: Current Every Day Smoker - Medications Home Medications: Home Medications Medication Instructions Recorded Confirmed Last Taken Type Potassium Chloride 10 meq PO QDAY #30 capsule.er 12/01/16 11/01/18 Unknown Rx hydrALAZINE [Apresoline TAB] 75 mg PO Q8HR #90 tablet 12/01/16 11/01/18 Unknown Rx Aspirin 325 mg PO QDAY 12/09/16 11/01/18 Unknown History Albuterol Mdi (or & Nicu Only) 2 puff IH QID PRN #1 inhalation 11/26/17 11/01/18 Unknown Rx [ProAir HFA Inhaler] HYDROcodone/APAP 5-325 [[place] 1 each PO Q6HR PRN #12 tablet 11/26/17 11/01/18 Unknown Rx 5-325 mg TAB] predniSONE [Deltasone] 20 mg PO QDAY #5 tab 11/26/17 11/01/18 Unknown Rx Furosemide [Lasix TAB] 80 mg PO QDAY 12/12/17 11/01/18 Unknown History Warfarin [Coumadin] 10 mg PO QDAY 12/12/17 11/01/18 Unknown History Furosemide [Lasix TAB] 80 mg PO QDAY@0600 tablet 12/15/17 11/01/18 Unknown Rx Nicotine [Habitrol] 7 mg TD Q24H #14 patch 12/15/17 11/01/18 Unknown Rx carvediloL [Coreg] 12.5 mg PO BID #60 tablet 12/15/17 11/01/18 Unknown Rx guaiFENesin/CODEINE [Robitussin AC] 10 ml PO Q4H PRN #1 bottle 12/15/17 11/01/18 Unknown Rx lisinopriL [Zestril TAB] 20 mg PO QDAY #30 tablet 12/15/17 11/01/18 Unknown Rx predniSONE 10 mg PO .TAPER #21 tab 12/15/17 11/01/18 Unknown Rx HYDROcodone/ACETAMINOPHEN [[place] 1 each PO Q6H PRN #10 tablet 12/27/17 11/01/18 Unknown Rx 5-325 Tablet] ED Physical Exam - General Limitations: No Limitations General appearance: alert, in no apparent distress - Head Head exam: Present: atraumatic, normocephalic - Eye Eye exam: Present: scleral icterus - ENT ENT exam: Present: mucous membranes dry - Neck Neck exam: Present: normal inspection - Respiratory Respiratory exam: Present: normal lung sounds bilaterally. Absent: respiratory distress - Cardiovascular Cardiovascular Exam: Present: normal rhythm, tachycardia. Absent: systolic murmur, diastolic murmur, rubs, gallop - GI/Abdominal GI/Abdominal exam: Present: soft, distended, normal bowel sounds. Absent: tenderness - Rectal Rectal exam: Present: deferred - Extremities Exam Extremities exam: Present: normal inspection, other (Bilateral pitting edema) - Back Exam Back exam: Present: normal inspection - Neurological Exam Neurological exam: Present: alert, oriented X3, CN II-XII intact. Absent: motor sensory deficit - Psychiatric Psychiatric exam: Present: normal affect, normal mood - Skin Skin exam: Present: warm, dry, intact, normal color. Absent: rash ED Course Vital Signs 04/01/22 13:15 Temperature 97.9 F Pulse Rate 90 Respiratory 20 Rate Blood Pressure 131/86 [Right] O2 Sat by Pulse 97 Oximetry ED Medical Decision Making - Lab Data Result diagrams: 04/01/22 14:04 04/01/22 14:04 - EKG Data -: EKG Interpreted by Me - EKG Data Interpretation: other (Ventricular paced rhythm) - Medical Decision Making On exam patient had no tenderness palpation of the right upper quadrant. Abdominal exam was repeated after reading results of the ultrasound. With the patient not having right upper quadrant tenderness and without a white count cholecystitis is less likely Critical care attestation.: If time is entered above; I have spent that time in minutes in the direct care of this critically ill patient, excluding procedure time. ED Disposition Clinical Impression: Hypokalemia, Ascites, Chest pain Disposition: ADMITTED INPATIENT Is pt being admited?: Yes Does the pt Need Aspirin: No Condition: Fair
[2022-04-01 21:21] LABS: Free T4 (Free Thyroxine) 1.61 ng/dL (0.76-1.46)
[2022-04-01] MEDS: hydrALAZINE 25 MG TAB PO SCH (22:25)
[2022-04-01] MEDS: carvediloL 12.5 MG TAB PO SCH (22:26)
[2022-04-01] MEDS: NICOTINE 7 MG/24 HR PATCH TD SCH (22:41)
--- NOTE | 2022-04-01 22:46 | Cat Scan Report ---
CT abdomen pelvis w con INDICATION / CLINICAL INFORMATION: Pt is jaundice. TECHNIQUE: Axial CT images were obtained through the abdomen and pelvis after 100 cc of Omnipaque [address] scans at this location are performed using CT dose reduction for ALARA by means of automated exposure control. COMPARISON: Ultrasound from 04/01/2022 FINDINGS: LOWER CHEST: Heart is enlarged with cardiac conduction device leads partially imaged. No pericardial effusion. There is mild bibasilar edema and atelectasis. LIVER: Liver is enlarged, measuring 19 cm. There is diffuse hypoattenuation, suggesting steatosis. Th e liver demonstrates a mild nodular contour with caudate hypertrophy. No focal lesion. GALLBLADDER/BILIARY TREE: There is cholelithiasis. Gallbladder is contracted with wall thickening. No biliary dilatation. PANCREAS: No significant abnormality SPLEEN: No significant abnormality ADRENALS: No significant abnormality RIGHT KIDNEY / URETER: No significant abnormality LEFT KIDNEY / URETER: No significant abnormality URINARY BLADDER: No significant abnormality REPRODUCTIVE ORGANS: No significant abnormality STOMACH / BOWEL: Small bowel is normal in caliber. The colon is unremarkable. The appendix is normal in caliber. LYMPH NODES: Shotty mesenteric lymph nodes. No pathologically enlarged lymph nodes. VASCULATURE: No significant abnormality. OTHER: There is nonspecific mesenteric edema and small volume ascites. No free air. No organized christa ection. SKELETAL SYSTEM: No acute osseous findings. IMPRESSION: 1. Enlarged liver with suspected hepatic steatosis. There is mild nodular contour with caudate hypert rophy, may reflect cirrhosis. Nonspecific mesenteric edema and small volume ascites. No organized col lection. 2. Gallbladder is contracted with cholelithiasis. There is mild wall thickening, which is nonspecific in the setting of liver disease. If there is concern for acute cholecystitis, consider further evalu ation with HIDA scan. 3. No other significant abnormality. Other incidental findings as above. Signer Name: Oneil Malhotra MD Signed: 04/01/2022 10:42 PM Workstation Name: [id number]
[2022-04-02] MEDS ORDERED: POTASSIUM CHLORIDE 10 MEQ 10 MEQ/100 ML BAG IV ONE (00:03)
[2022-04-02] MEDS ORDERED: POTASSIUM CHLORIDE ER 20 MEQ TAB PO ONE ×2 (00:03→05:29)
[2022-04-02 03:42] LABS: Basophils # (Auto) 0.1 K/mm3 (0.0-0.1); Basophils % (Auto) 1.3 % (0.0-1.8); Eosinophils # (Auto) 0.1 K/mm3 (0.0-0.4); Eosinophils % (Auto) 1.3 % (0.0-4.3); Hematocrit 39.8 % (35.5-45.6); Lymphocytes # (Auto) 0.8 K/mm3 (1.2-5.4); Mean Corpuscular HGB Conc 33 % (32-34); Mean Corpuscular Volume 87 fl (84-94); Monocytes # (Auto) 0.6 K/mm3 (0.0-0.8); Monocytes % (Auto) 11.7 % (0.0-7.3); Platelet Count 207 K/mm3 (140-440); Red Blood Count 4.57 M/mm3 (3.65-5.03); Red Cell Distribution Width 17.3 % (13.2-15.2)
[2022-04-02 04:05] LABS: Alanine Aminotransferase 20 units/L (7-56); Albumin 3.3 g/dL (3.9-5); BUN/Creatinine Ratio 22; Blood Urea Nitrogen 22 mg/dL (9-20); Calcium 8.8 mg/dL (8.4-10.2); Hemolysis Index 5
[2022-04-02] MEDS: hydrALAZINE 25 MG TAB PO SCH ×3 (05:08→21:02)
[2022-04-02] MEDS: FUROSEMIDE 40 MG/4 ML INJ IV SCH ×2 (05:39→17:55)
--- NOTE | 2022-04-02 07:52 | Gastroenterology Consultation ---
History of Present Illness - Reason for Consult Consult date: 04/02/22 elevated bilirubin Requesting physician: JULES OLIVIER - History of Present Illness Is a pleasant 46-year-old gentleman for whom GI is consulted for jaundice Patient reports that he has been intermittently jaundiced since his cardiac surgery approximately 5 years ago. 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 Mild pruritus on his back where he has a tattoo from when his mom passed otherwise no pruritus throughout the rest of his body Obtained/updated/reviewed patient's current medications Past History Past Medical History: atrial fib, heart failure, hypertension, hyperlipidemia, other (See HPI) Past Surgical History: valve replacement, CABG, Other (AICD placement,) Social history: single. denies: smoking, alcohol abuse, prescription drug abuse Family history: diabetes, hypertension Medications and Allergies Allergies Allergy/AdvReac Type Severity Reaction Status Date / Time No Known Allergies Allergy Verified 08/18/16 21:37 Home Medications Medication Instructions Recorded Confirmed Last Taken Type Potassium Chloride 10 meq PO QDAY #30 capsule.er 12/01/16 04/01/22 Unknown Rx hydrALAZINE [Apresoline TAB] 75 mg PO Q8HR #90 tablet 12/01/16 04/01/22 04/01/22 22:00 Rx Aspirin 325 mg PO QDAY 12/09/16 04/01/22 Unknown History Albuterol Mdi (or & Nicu Only) 2 puff IH QID PRN #1 inhalation 11/26/17 04/01/22 Unknown Rx [ProAir HFA Inhaler] HYDROcodone/APAP 5-325 [[place] 1 each PO Q6HR PRN #12 tablet 11/26/17 04/01/22 Unknown Rx 5-325 mg TAB] predniSONE [Deltasone] 20 mg PO QDAY #5 tab 11/26/17 04/01/22 Unknown Rx Furosemide [Lasix TAB] 80 mg PO QDAY 12/12/17 04/01/22 Unknown History Warfarin [Coumadin] 10 mg PO QDAY 12/12/17 04/01/22 Unknown History Furosemide [Lasix TAB] 80 mg PO QDAY@0600 tablet 12/15/17 04/01/22 Unknown Rx carvediloL [Coreg] 12.5 mg PO BID #60 tablet 12/15/17 11/01/18 04/01/22 22:00 Rx guaiFENesin/CODEINE [Robitussin AC] 10 ml PO Q4H PRN #1 bottle 12/15/17 04/01/22 Unknown Rx lisinopriL [Zestril TAB] 20 mg PO QDAY #30 tablet 12/15/17 04/01/22 Unknown Rx predniSONE 10 mg PO .TAPER #21 tab 12/15/17 04/01/22 Unknown Rx HYDROcodone/ACETAMINOPHEN [[place] 1 each PO Q6H PRN #10 tablet 12/27/17 04/01/22 Unknown Rx 5-325 Tablet] Active Meds: Active Medications Acetaminophen (Acetaminophen 325 Mg Tab) 650 mg PO Q4H PRN PRN Reason: Pain MILD(1-3)/Fever >100.5/PEREZ Albuterol (Albuterol 2.5 Mg/3 Ml Nebu) 2.5 mg IH Q4HRT PRN PRN Reason: Shortness Of Breath Aspirin (Aspirin 325 Mg Tab) 325 mg PO QDAY [facility] Carvedilol (Carvedilol 12.5 Mg Tab) 12.5 mg PO BID [facility] Last Admin: 04/01/22 22:26 Dose: 12.5 mg Furosemide (Furosemide 40 Mg/4 Ml Inj) 40 mg IV BID@0600,1800 [facility] Last Admin: 04/02/22 05:39 Dose: 40 mg Hydralazine HCl (Hydralazine 25 Mg Tab) 75 mg PO Q8HR [facility] Last Admin: 04/02/22 05:08 Dose: Not Given Hydromorphone HCl (Hydromorphone 0.5 Mg/0.5 Ml Inj) 0.5 mg IV Q13H PRN PRN Reason: Pain , Severe (7-10) Lisinopril (Lisinopril 20 Mg Tab) 20 mg PO QDAY [facility] Nicotine (Nicotine 7 Mg/24 Hr Patch) 7 mg TD Q24H [facility] Last Admin: 04/01/22 22:41 Dose: Not Given Ondansetron HCl (Ondansetron 4 Mg/2 Ml Inj) 4 mg IV Q8H PRN PRN Reason: Nausea And Vomiting Oxycodone/Acetaminophen (Oxycodone /Acetaminophen 5-325mg Tab) 1 tab PO Q6H PRN PRN Reason: Pain, Moderate (4-6) Potassium Chloride (Potassium Chloride Er 10 Meq Tab) 10 meq PO QDAY [facility] Pseudoephedrine/Acetam/Chlorphenir (Guaifenesin/Codeine 100-10mg Oral Liqd 5 Ml) 10 ml PO Q4H PRN PRN Reason: Cough Sodium Chloride (Sodium Chloride 0.9% 10 Ml Flush Syringe) 10 ml IV BID [facility] Last Admin: 04/01/22 22:21 Dose: 10 ml Sodium Chloride (Sodium Chloride 0.9% 10 Ml Flush Syringe) 10 ml IV PRN PRN PRN Reason: LINE FLUSH Review of Systems - Review of Systems All systems: negative (10 Systems reviewed and negative except as mentioned above in the history of present illness) Exam - Constitutional Vital Signs: Temp Pulse Resp BP Pulse Ox 97.7 F 70 16 99/69 98 04/02/22 04:00 04/02/22 07:00 04/02/22 07:00 04/02/22 07:00 04/02/22 07:00 General appearance: no acute distress - EENT Eyes: scleral icterus ENT: hearing intact - Neck Neck: supple - Respiratory Respiratory effort: normal - Cardiovascular Rhythm: regular Extremity abnormal: edema - Gastrointestinal General gastrointestinal: Present: non-tender - Integumentary Integumentary: Present: dry - Neurologic Neurological: alert and oriented x3 - Psychiatric Psychiatric: appropriate mood/affect - Labs CBC & Chem 7: 04/02/22 03:34 04/02/22 03:34 Lab Results: Laboratory Results - last 24 hr 04/01/22 04/01/22 04/01/22 14:04 14:04 17:50 WBC 5.7 RBC 4.74 Hgb 13.8 Hct 41.3 MCV 87 MCH 29 MCHC 33 RDW 17.4 H Plt Count 223 Lymph % (Auto) 20.9 [place] % (Auto) 15.0 H Eos % (Auto) 1.6 Baso % (Auto) 1.4 Lymph # (Auto) 1.2 [place] # (Auto) 0.9 H Eos # (Auto) 0.1 Baso # (Auto) 0.1 Seg Neutrophils % 61.1 Seg Neutrophils # 3.5 Sodium 139 Potassium 2.9 L* Chloride 97.4 L Carbon Dioxide 29 Anion Gap 16 BUN 18 Creatinine 1.1 Estimated GFR > 60 BUN/Creatinine Ratio 16 Glucose 92 Calcium 8.8 Magnesium Total Bilirubin 16.10 H Direct Bilirubin Indirect Bilirubin AST 29 ALT 21 Alkaline Phosphatase 157 H Troponin T < 0.010 < 0.010 NT-Pro-B Natriuret Pep Total Protein 6.4 Albumin 3.8 L Albumin/Globulin Ratio 1.5 Lipase TSH Free T4 04/01/22 04/01/22 04/01/22 17:50 17:50 20:25 WBC RBC Hgb Hct MCV MCH MCHC RDW Plt Count Lymph % (Auto) [place] % (Auto) Eos % (Auto) Baso % (Auto) Lymph # (Auto) [place] # (Auto) Eos # (Auto) Baso # (Auto) Seg Neutrophils % Seg Neutrophils # Sodium Potassium Chloride Carbon Dioxide Anion Gap BUN Creatinine Estimated GFR BUN/Creatinine Ratio Glucose Calcium Magnesium 1.80 Total Bilirubin 16.90 H Direct Bilirubin 10.5 H Indirect Bilirubin 6.4 AST ALT Alkaline Phosphatase Troponin T NT-Pro-B Natriuret Pep 2850 H Total Protein Albumin Albumin/Globulin Ratio Lipase 39 TSH Free T4 04/01/22 04/02/22 04/02/22 20:25 03:34 03:34 WBC 5.5 RBC 4.57 Hgb 13.0 Hct 39.8 MCV 87 MCH 29 MCHC 33 RDW 17.3 H Plt Count 207 Lymph % (Auto) 15.0 [place] % (Auto) 11.7 H Eos % (Auto) 1.3 Baso % (Auto) 1.3 Lymph # (Auto) 0.8 L [place] # (Auto) 0.6 Eos # (Auto) 0.1 Baso # (Auto) 0.1 Seg Neutrophils % 70.7 H Seg Neutrophils # 3.9 Sodium 136 L Potassium 3.4 L Chloride 98.8 Carbon Dioxide 26 Anion Gap 15 BUN 22 H Creatinine 1.0 Estimated GFR > 60 BUN/Creatinine Ratio 22 Glucose 121 H Calcium 8.8 Magnesium Total Bilirubin 14.90 H Direct Bilirubin Indirect Bilirubin AST 28 ALT 20 Alkaline Phosphatase 144 H Troponin T NT-Pro-B Natriuret Pep Total Protein 5.8 L Albumin 3.3 L Albumin/Globulin Ratio 1.3 Lipase TSH 2.920 Free T4 1.61 H Assessment and Plan Reviewing labs, patient has been significantly jaundiced with hyperbilirubinemia for approximately 5 years. Direct hyperbilirubinemia. 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 Given stability of his symptoms for many years and the suspected cardiac source patient does not require any further inpatient interventions. Recommend optimizing cardiac status. Given his complexity he should follow-up with hepatology at [place] as an outpatient where he also has had his cardiac physicians in the past. GI will sign off please call us back if we can be of any further assistance - Patient Problems (1) Elevated bilirubin Current Visit: No Status: Acute
[2022-04-02] MEDS: carvediloL 12.5 MG TAB PO SCH ×2 (09:13→21:02)
[2022-04-02] MEDS: POTASSIUM CHLORIDE ER 10 MEQ TAB PO SCH (09:13)
[2022-04-02] MEDS ORDERED: ASPIRIN 325 MG TAB PO SCH (10:00)
--- NOTE | 2022-04-02 10:19 | Progress Note ---
Assessment and Plan Assessment and plan: 46 YO Male with CHF(EF 25%), CAD S/P CABG, AICD, Valve replacement, Paroxysmal Atrial Fib not on therapeutic anticoagulation, HTN, HLD presents to ED for evaluation. Patient reports "my legs are swollen and I feel short of breath". Patient states that over the past 2 weeks he has experienced shortness of breath, dyspnea on exertion, dyspnea at rest, decreased exercise tolerance, orthopnea, paroxysmal nocturnal dyspnea, and 15 pound weight gain with worsening symptoms over the past few days. Patient transported to [facility] via private vehicle for further care and evaluation of the aforementioned symptoms. The patient was seen and evaluated in the emergency department. All lab and imaging studies r eviewed. To have symptoms consistent with CHF decompensation, hyperkalemia, obstructive jaundice with concomitant portal hypertension. Patient admitted to telemetry and initiated on CHF protocol due to increased risk of worsening symptoms and for medical stabilization. GI team consulted in ED. Patient denies fever, chills, chest pain, palpitation, adductive cough, skin rash, recent contact, or known exposure to COVID-19. Prior admission on 11/01/2018 reviewed. No medication listed at time of admission for reconciliation. Advanced care planning conducted in ED. 04/02/22: Patient seen and examined today, Cardiology and GI consulted. Echo is pending. Patient recently relocated to [place] and has not been set up with any physician. He unfortunately continues to smoke although has cut down. Co unselling on tobacco cessation advised with risk and benefits discussed in detail for 15 mins. Will continue GDMT, Lasix, Strict I/O, Fluid restrictions. Will await cardiology input about Anticoagulation initiation. Patient with no abdominal pain, Imaging studies show Small Ascites, Will await full GI work up. Patient tells me his Liver failure is secondary to his Heart condition although he had significant Etoh hx Counselling on compliance and preventive care discussed in detail Will transfer to Telemetry for continued management (1) Acute CHF (congestive heart failure) Status: Acute Qualifiers: Qualified Code(s): I50.41 - Acute combined systolic (congestive) and diastolic (congestive) heart failure Plan to address problem: CHF protocol: Strict I's and O, monitor renal progression, daily weight, afterload reduction and blood pressure control, supplemental oxygen, diuresis with Lasix therapy, thyroid panel, magnesium level, cardiology team consulted. (2) Paroxysmal atrial fibrillation Status: Acute Plan to address problem: Cardiology team consulted, supportive care. Telemetry monitoring. (3) Obstructive jaundice Status: Acute Plan to address problem: Abdominal ultrasound, CT scan abdomen pelvis, GI team consulted. Repeat LFTs in AM. (4) Portal hypertension Status: Acute Plan to address problem: GI team consulted, continue medical management. Supportive care. (5) Hypokalemia (6) Tobacco use disorder (7) Hepatic Steatosis (8) DVT prophylaxis Status: Acute Plan to address problem: SCD to bilateral lower extremities while in bed (9) Advance care planning Status: Acute Plan to address problem: Disease education data, care plan discussed, diagnosis discussed, prognosis discussed, patient is full code. Patient knowledges understanding and agreement with care plan, +30 minutes. (10) Preventative health care Status: Acute Plan to address problem: Patient counseled regarding medication compliance, outpatient follow-up with cardiology and GI subspecialist, patient counseled to follow-up with primary care physician for all age and risk factor appropriate screening test. +30 minutes. History Interval history: Patient seen and examined this am, still with some shortness of breath but states improving. No other overnight event Hospitalist Physical - Physical exam Narrative exam: VITAL SIGNS: Reviewed. GENERAL: The patient appears normally developed, chronically ill-appearing mildly short of breath, Vital signs as documented. HEAD: No signs of head trauma. EYES: Icteric sclera, pupils are equal. Extraocular motions intact. EARS: Hearing grossly intact. MOUTH: Oropharynx is normal. NECK: No adenopathy, no JVD. CHEST: Chest with fine rales breath sounds bilaterally. No wheezes CARDIAC: Regular rate and rhythm. S1 and S2, without murmurs, gallops, or rubs. VASCULAR: +1 pitting edema. Peripheral pulses normal and equal in all extremities. ABDOMEN: Soft, non tender. And large pannus but no fluid shift. No rebound or guarding, and no masses palpated. Bowel Sounds normal. MUSCULOSKELETAL: Good range of motion of all major joints. Extremities without clubbing, cyanosis. +1 pitting edema bilateral. NEUROLOGIC EXAM: Alert and oriented x 3 No focal sensory or strength deficits. Speech normal. Follows commands. PSYCHIATRIC: Mood normal. SKIN: detail exam as documented in skin assessment - Constitutional Vitals: Temp Pulse Resp BP Pulse Ox 97.6 F 79 20 118/74 87 04/02/22 08:00 04/02/22 10:01 04/02/22 10:01 04/02/22 10:01 04/02/22 10:01 General appearance: Present: mild distress HEART Score - HEART Score Troponin: Troponin T < 0.010 ng/mL (0.00-0.029) 04/01/22 17:50 Results - Labs CBC & Chem 7: 04/02/22 03:34 04/02/22 03:34 Labs: Laboratory Last Values WBC 5.5 K/mm3 (4.5-11.0) 04/02/22 03:34 RBC 4.57 M/mm3 (3.65-5.03) 04/02/22 03:34 Hgb 13.0 gm/dl (11.8-15.2) 04/02/22 03:34 Hct 39.8 % (35.5-45.6) 04/02/22 03:34 MCV 87 fl (84-94) 04/02/22 03:34 MCH 29 pg (28-32) 04/02/22 03:34 MCHC 33 % (32-34) 04/02/22 03:34 RDW 17.3 % (13.2-15.2) H 04/02/22 03:34 Plt Count 207 K/mm3 (140-440) 04/02/22 03:34 Lymph % (Auto) 15.0 % (13.4-35.0) 04/02/22 03:34 Hettinger % (Auto) 11.7 % (0.0-7.3) H 04/02/22 03:34 Eos % (Auto) 1.3 % (0.0-4.3) 04/02/22 03:34 Baso % (Auto) 1.3 % (0.0-1.8) 04/02/22 03:34 Lymph # (Auto) 0.8 K/mm3 (1.2-5.4) L 04/02/22 03:34 Hettinger # (Auto) 0.6 K/mm3 (0.0-0.8) 04/02/22 03:34 Eos # (Auto) 0.1 K/mm3 (0.0-0.4) 04/02/22 03:34 Baso # (Auto) 0.1 K/mm3 (0.0-0.1) 04/02/22 03:34 Seg Neutrophils % 70.7 % (40.0-70.0) H 04/02/22 03:34 Seg Neutrophils # 3.9 K/mm3 (1.8-7.7) 04/02/22 03:34 Sodium 136 mmol/L (137-145) L 04/02/22 03:34 Potassium 3.4 mmol/L (3.6-5.0) L 04/02/22 03:34 Chloride 98.8 mmol/L (98-107) 04/02/22 03:34 Carbon Dioxide 26 mmol/L (22-30) 04/02/22 03:34 Anion Gap 15 mmol/L 04/02/22 03:34 BUN 22 mg/dL (9-20) H 04/02/22 03:34 Creatinine 1.0 mg/dL (0.8-1.3) 04/02/22 03:34 Estimated GFR > 60 ml/min 04/02/22 03:34 BUN/Creatinine Ratio 22 % 04/02/22 03:34 Glucose 121 mg/dL (75-100) H 04/02/22 03:34 Calcium 8.8 mg/dL (8.4-10.2) 04/02/22 03:34 Magnesium 1.80 mg/dL (1.7-2.3) 04/01/22 20:25 Total Bilirubin 14.90 mg/dL (0.1-1.2) H 04/02/22 03:34 Direct Bilirubin 10.5 mg/dL (0-0.2) H 04/01/22 17:50 Indirect Bilirubin 6.4 mg/dL 04/01/22 17:50 AST 28 units/L (5-40) 04/02/22 03:34 ALT 20 units/L (7-56) 04/02/22 03:34 Alkaline Phosphatase 144 units/L (35-129) H 04/02/22 03:34 Troponin T < 0.010 ng/mL (0.00-0.029) 04/01/22 17:50 NT-Pro-B Natriuret Pep 2850 pg/mL (0-450) H 04/01/22 17:50 Total Protein 5.8 g/dL (6.3-8.2) L 04/02/22 03:34 Albumin 3.3 g/dL (3.9-5) L 04/02/22 03:34 Albumin/Globulin Ratio 1.3 % 04/02/22 03:34 Lipase 39 units/L (13-60) 04/01/22 17:50 TSH 2.920 mlU/mL (0.270-4.200) 04/01/22 20:25 Free T4 1.61 ng/dL (0.76-1.46) H 04/01/22 20:25 Carvajal/IV: Voiding Method Urinal Active Medications - Current Medications Current Medications: Generic Name Dose Route Start Last Admin Trade Name Freq PRN Reason Stop Dose Admin Acetaminophen 650 mg 04/01/22 19:59 Acetaminophen 325 Mg Tab PO Q4H PRN Pain MILD(1-3)/Fever >100.5/PEREZ Albuterol 2.5 mg 04/01/22 19:59 Albuterol 2.5 Mg/3 Ml Nebu IH Q4HRT PRN Shortness Of Breath Aspirin 325 mg 04/02/22 10:00 04/02/22 09:12 Aspirin 325 Mg Tab PO 325 mg QDAY SARAH Administration Carvedilol 12.5 mg 04/01/22 22:00 04/02/22 09:13 Carvedilol 12.5 Mg Tab PO 12.5 mg BID SARAH Administration Furosemide 40 mg 04/02/22 06:00 04/02/22 05:39 Furosemide 40 Mg/4 Ml Inj IV 40 mg BID@0600,1800 SARAH Administration Hydralazine HCl 75 mg 04/01/22 22:00 04/02/22 05:08 Hydralazine 25 Mg Tab PO Not Given Q8HR SARAH Hydromorphone HCl 0.5 mg 04/01/22 19:59 Hydromorphone 0.5 Mg/0.5 Ml Inj IV Q13H PRN Pain , Severe (7-10) Lisinopril 20 mg 04/02/22 10:00 Lisinopril 20 Mg Tab PO QDAY SARAH Nicotine 7 mg 04/01/22 21:00 04/01/22 22:41 Nicotine 7 Mg/24 Hr Patch TD Not Given Q24H SARAH Ondansetron HCl 4 mg 04/01/22 19:59 Ondansetron 4 Mg/2 Ml Inj IV Q8H PRN Nausea And Vomiting Oxycodone/Acetaminophen 1 tab 04/01/22 19:59 Oxycodone /Acetaminophen 5-325mg Tab PO Q6H PRN Pain, Moderate (4-6) Potassium Chloride 10 meq 04/02/22 10:00 04/02/22 09:13 Potassium Chloride Er 10 Meq Tab PO 10 meq QDAY SARAH Administration Pseudoephedrine/Acetam/Chlorphenir 10 ml 04/01/22 20:01 Guaifenesin/Codeine 100-10mg Oral Liqd 5 Ml PO Q4H PRN Cough Sodium Chloride 10 ml 04/01/22 22:00 04/02/22 09:13 Sodium Chloride 0.9% 10 Ml Flush Syringe IV 10 ml BID SARAH Administration Sodium Chloride 10 ml 04/01/22 19:59 Sodium Chloride 0.9% 10 Ml Flush Syringe IV PRN PRN LINE FLUSH
[2022-04-02] MEDS ORDERED: POTASSIUM CHLORIDE ER 20 MEQ TAB PO SCH (12:30)
[2022-04-02] MEDS: LISINOPRIL 20 MG TAB PO SCH (14:15)
--- NOTE | 2022-04-02 14:49 | Consultation ---
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 In that timeframe patient also reports worsening orthopnea, PND, dyspnea on exertion, decrease in appetite, and swelling in his abdomen. Of note patient reports that he recently moved back to [place] 2 weeks ago from [place] after living there since 2019. Patient reports that He was receiving medical care. He states that he was compliant on his medication however was noncompliant with diet. Patient denies chest pain, pa lpitations, nausea, vomiting, diaphoresis, or dizziness. Patient was previously followed by Dr. Jennings of our practice and last seen in 2019. Cardiology is consulted for heart failure. Past History Past Medical History: atrial fib, heart failure, hypertension, hyperlipidemia, other (See HPI) Past Surgical History: valve replacement, Other (AICD placement,) Social history: single. denies: smoking, alcohol abuse, prescription drug abuse Family history: diabetes, hypertension Medications and Allergies Allergies Allergy/AdvReac Type Severity Reaction Status Date / Time No Known Allergies Allergy Verified 08/18/16 21:37 Home Medications Medication Instructions Recorded Confirmed Last Taken Type Furosemide [Lasix TAB] 80 mg PO QDAY 12/12/17 04/01/22 Unknown History Apixaban [Eliquis] 5 mg PO BID 04/02/22 04/02/22 Unknown History AtorvaSTATin [Lipitor] 10 mg PO QHS 04/02/22 04/02/22 Unknown History Metoprolol Succinate [Kapspargo 100 mg PO QDAY 04/02/22 04/02/22 Unknown History Sprinkle] Spironolactone [Aldactone] 25 mg PO QDAY 04/02/22 04/02/22 Unknown History Active Meds: Active Medications Acetaminophen (Acetaminophen 325 Mg Tab) 650 mg PO Q4H PRN PRN Reason: Pain MILD(1-3)/Fever >100.5/PEREZ Albuterol (Albuterol 2.5 Mg/3 Ml Nebu) 2.5 mg IH Q4HRT PRN PRN Reason: Shortness Of Breath Aspirin (Aspirin 325 Mg Tab) 325 mg PO QDAY [facility] Last Admin: 04/02/22 09:12 Dose: 325 mg Carvedilol (Carvedilol 12.5 Mg Tab) 12.5 mg PO BID [facility] Last Admin: 04/02/22 09:13 Dose: 12.5 mg Furosemide (Furosemide 40 Mg/4 Ml Inj) 40 mg IV BID@0600,1800 [facility] Last Admin: 04/02/22 05:39 Dose: 40 mg Hydralazine HCl (Hydralazine 25 Mg Tab) 75 mg PO Q8HR [facility] Last Admin: 04/02/22 14:17 Dose: Not Given Hydromorphone HCl (Hydromorphone 0.5 Mg/0.5 Ml Inj) 0.5 mg IV Q13H PRN PRN Reason: Pain , Severe (7-10) Lisinopril (Lisinopril 20 Mg Tab) 20 mg PO QDAY [facility] Last Admin: 04/02/22 14:15 Dose: Not Given Nicotine (Nicotine 7 Mg/24 Hr Patch) 7 mg TD Q24H [facility] Last Admin: 04/01/22 22:41 Dose: Not Given Ondansetron HCl (Ondansetron 4 Mg/2 Ml Inj) 4 mg IV Q8H PRN PRN Reason: Nausea And Vomiting Oxycodone/Acetaminophen (Oxycodone /Acetaminophen 5-325mg Tab) 1 tab PO Q6H PRN PRN Reason: Pain, Moderate (4-6) Potassium Chloride (Potassium Chloride Er 10 Meq Tab) 10 meq PO QDAY [facility] Last Admin: 04/02/22 09:13 Dose: 10 meq Potassium Chloride (Potassium Chloride Er 20 Meq Tab) 40 meq PO ONCE@1230 [facility] Stop: 04/02/22 15:00 Last Admin: 04/02/22 12:52 Dose: 40 meq Pseudoephedrine/Acetam/Chlorphenir (Guaifenesin/Codeine 100-10mg Oral Liqd 5 Ml) 10 ml PO Q4H PRN PRN Reason: Cough Sodium Chloride (Sodium Chloride 0.9% 10 Ml Flush Syringe) 10 ml IV BID [facility] Last Admin: 04/02/22 09:13 Dose: 10 ml Sodium Chloride (Sodium Chloride 0.9% 10 Ml Flush Syringe) 10 ml IV PRN PRN PRN Reason: LINE FLUSH Review of Systems Constitutional: weight gain Ears, nose, mouth and throat: no sinus pressure, no sinus pain Cardiovascular: orthopnea, shortness of breath, dyspnea on exertion, paroxysmal nocturnal dyspnea, leg edema, no chest pain, no lightheadedness Respiratory: shortness of breath, dyspnea on exertion Gastrointestinal: loss of appetite, jaundice, no abdominal pain, no nausea, no vomiting Musculoskeletal: no neck stiffness, no neck pain Integumentary: no rash, no pruritis, no redness Neurological: no head injury, no transient paralysis Psychiatric: no anxiety, no memory loss Endocrine: no cold intolerance, no heat intolerance Hematologic/Lymphatic: no easy bruising, no easy bleeding Physical Examination Vital Signs Temp Pulse Resp BP Pulse Ox 97.9 F 90 20 131/86 97 04/01/22 13:15 04/01/22 13:15 04/01/22 13:15 04/01/22 13:15 04/01/22 13:15 General appearance: no acute distress HEENT: Positive: PERRL, Jaundice Cardiac: Positive: Reg Rate and Rhythm Lungs: Positive: Normal Breath Sounds Neuro: Positive: Grossly Intact Abdomen: Positive: Ascites Skin: Negative: Rash, Suspicious Lesions, Ulceration Extremities: Present: upper extr. pulses, edema Results 04/02/22 03:34 04/02/22 03:34 Cardiac Enzymes 04/01/22 04/01/22 04/01/22 Range/Units 14:04 14:04 17:50 WBC 5.7 (4.5-11.0) K/mm3 RBC 4.74 (3.65-5.03) M/mm3 Hgb 13.8 (11.8-15.2) gm/dl Hct 41.3 (35.5-45.6) % MCV 87 (84-94) fl MCH 29 (28-32) pg MCHC 33 (32-34) % RDW 17.4 H (13.2-15.2) % Plt Count 223 (140-440) K/mm3 Lymph % (Auto) 20.9 (13.4-35.0) % King % (Auto) 15.0 H (0.0-7.3) % Eos % (Auto) 1.6 (0.0-4.3) % Baso % (Auto) 1.4 (0.0-1.8) % Lymph # (Auto) 1.2 (1.2-5.4) K/mm3 King # (Auto) 0.9 H (0.0-0.8) K/mm3 Eos # (Auto) 0.1 (0.0-0.4) K/mm3 Baso # (Auto) 0.1 (0.0-0.1) K/mm3 Seg Neutrophils % 61.1 (40.0-70.0) % Seg Neutrophils # 3.5 (1.8-7.7) K/mm3 Sodium 139 (137-145) mmol/L Potassium 2.9 L* (3.6-5.0) mmol/L Chloride 97.4 L (98-107) mmol/L Carbon Dioxide 29 (22-30) mmol/L Anion Gap 16 mmol/L BUN 18 (9-20) mg/dL Creatinine 1.1 (0.8-1.3) mg/dL Estimated GFR > 60 ml/min BUN/Creatinine Ratio 16 % Glucose 92 (75-100) mg/dL Calcium 8.8 (8.4-10.2) mg/dL Magnesium (1.7-2.3) mg/dL Total Bilirubin 16.10 H (0.1-1.2) mg/dL Direct Bilirubin (0-0.2) mg/dL Indirect Bilirubin mg/dL AST 29 (5-40) units/L ALT 21 (7-56) units/L Alkaline Phosphatase 157 H (35-129) units/L Troponin T < 0.010 < 0.010 (0.00-0.029) ng/mL NT-Pro-B Natriuret Pep (0-450) pg/mL Total Protein 6.4 (6.3-8.2) g/dL Albumin 3.8 L (3.9-5) g/dL Albumin/Globulin Ratio 1.5 % Lipase (13-60) units/L TSH (0.270-4.200) mlU/mL Free T4 (0.76-1.46) ng/dL 04/01/22 04/01/22 04/01/22 Range/Units 17:50 17:50 20:25 WBC (4.5-11.0) K/mm3 RBC (3.65-5.03) M/mm3 Hgb (11.8-15.2) gm/dl Hct (35.5-45.6) % MCV (84-94) fl MCH (28-32) pg MCHC (32-34) % RDW (13.2-15.2) % Plt Count (140-440) K/mm3 Lymph % (Auto) (13.4-35.0) % King % (Auto) (0.0-7.3) % Eos % (Auto) (0.0-4.3) % Baso % (Auto) (0.0-1.8) % Lymph # (Auto) (1.2-5.4) K/mm3 King # (Auto) (0.0-0.8) K/mm3 Eos # (Auto) (0.0-0.4) K/mm3 Baso # (Auto) (0.0-0.1) K/mm3 Seg Neutrophils % (40.0-70.0) % Seg Neutrophils # (1.8-7.7) K/mm3 Sodium (137-145) mmol/L Potassium (3.6-5.0) mmol/L Chloride (98-107) mmol/L Carbon Dioxide (22-30) mmol/L Anion Gap mmol/L BUN (9-20) mg/dL Creatinine (0.8-1.3) mg/dL Estimated GFR ml/min BUN/Creatinine Ratio % Glucose (75-100) mg/dL Calcium (8.4-10.2) mg/dL Magnesium 1.80 (1.7-2.3) mg/dL Total Bilirubin 16.90 H (0.1-1.2) mg/dL Direct Bilirubin 10.5 H (0-0.2) mg/dL Indirect Bilirubin 6.4 mg/dL AST (5-40) units/L ALT (7-56) units/L Alkaline Phosphatase (35-129) units/L Troponin T (0.00-0.029) ng/mL NT-Pro-B Natriuret Pep 2850 H (0-450) pg/mL Total Protein (6.3-8.2) g/dL Albumin (3.9-5) g/dL Albumin/Globulin Ratio % Lipase 39 (13-60) units/L TSH (0.270-4.200) mlU/mL Free T4 (0.76-1.46) ng/dL 04/01/22 04/02/22 04/02/22 Range/Units 20:25 03:34 03:34 WBC 5.5 (4.5-11.0) K/mm3 RBC 4.57 (3.65-5.03) M/mm3 Hgb 13.0 (11.8-15.2) gm/dl Hct 39.8 (35.5-45.6) % MCV 87 (84-94) fl MCH 29 (28-32) pg MCHC 33 (32-34) % RDW 17.3 H (13.2-15.2) % Plt Count 207 (140-440) K/mm3 Lymph % (Auto) 15.0 (13.4-35.0) % King % (Auto) 11.7 H (0.0-7.3) % Eos % (Auto) 1.3 (0.0-4.3) % Baso % (Auto) 1.3 (0.0-1.8) % Lymph # (Auto) 0.8 L (1.2-5.4) K/mm3 King # (Auto) 0.6 (0.0-0.8) K/mm3 Eos # (Auto) 0.1 (0.0-0.4) K/mm3 Baso # (Auto) 0.1 (0.0-0.1) K/mm3 Seg Neutrophils % 70.7 H (40.0-70.0) % Seg Neutrophils # 3.9 (1.8-7.7) K/mm3 Sodium 136 L (137-145) mmol/L Potassium 3.4 L (3.6-5.0) mmol/L Chloride 98.8 (98-107) mmol/L Carbon Dioxide 26 (22-30) mmol/L Anion Gap 15 mmol/L BUN 22 H (9-20) mg/dL Creatinine 1.0 (0.8-1.3) mg/dL Estimated GFR > 60 ml/min BUN/Creatinine Ratio 22 % Glucose 121 H (75-100) mg/dL Calcium 8.8 (8.4-10.2) mg/dL Magnesium (1.7-2.3) mg/dL Total Bilirubin 14.90 H (0.1-1.2) mg/dL Direct Bilirubin (0-0.2) mg/dL Indirect Bilirubin mg/dL AST 28 (5-40) units/L ALT 20 (7-56) units/L Alkaline Phosphatase 144 H (35-129) units/L Troponin T (0.00-0.029) ng/mL NT-Pro-B Natriuret Pep (0-450) pg/mL Total Protein 5.8 L (6.3-8.2) g/dL Albumin 3.3 L (3.9-5) g/dL Albumin/Globulin Ratio 1.3 % Lipase (13-60) units/L TSH 2.920 (0.270-4.200) mlU/mL Free T4 1.61 H (0.76-1.46) ng/dL CBC 04/01/22 04/02/22 Range/Units 14:04 03:34 WBC 5.7 5.5 (4.5-11.0) K/mm3 RBC 4.74 4.57 (3.65-5.03) M/mm3 Hgb 13.8 13.0 (11.8-15.2) gm/dl Hct 41.3 39.8 (35.5-45.6) % Plt Count 223 207 (140-440) K/mm3 Lymph # (Auto) 1.2 0.8 L (1.2-5.4) K/mm3 King # (Auto) 0.9 H 0.6 (0.0-0.8) K/mm3 Eos # (Auto) 0.1 0.1 (0.0-0.4) K/mm3 Baso # (Auto) 0.1 0.1 (0.0-0.1) K/mm3 Comprehensive Metabolic Panel 04/01/22 04/01/22 04/02/22 Range/Units 14:04 17:50 03:34 Sodium 139 136 L (137-145) mmol/L Potassium 2.9 L* 3.4 L (3.6-5.0) mmol/L Chloride 97.4 L 98.8 (98-107) mmol/L Carbon Dioxide 29 26 (22-30) mmol/L BUN 18 22 H (9-20) mg/dL Creatinine 1.1 1.0 (0.8-1.3) mg/dL Glucose 92 121 H (75-100) mg/dL Calcium 8.8 8.8 (8.4-10.2) mg/dL Direct Bilirubin 10.5 H (0-0.2) mg/dL Indirect Bilirubin 6.4 mg/dL AST 29 28 (5-40) units/L ALT 21 20 (7-56) units/L Alkaline Phosphatase 157 H 144 H (35-129) units/L Total Protein 6.4 5.8 L (6.3-8.2) g/dL Albumin 3.8 L 3.3 L (3.9-5) g/dL - Imaging and Cardiology Echo: pending, report reviewed EKG interpretations - Telemetry EKG Rhythm: Paced Pacemaker: ventricular pacing w/capt, normal atrial sensing Assessment and Plan Patient is a 46 YO male with a past medical history significant for chronic systolic HF, 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 Acute on chronic HFrEF Hypokalemia Ascites Jaundice-GI following Hypertension Cardiomyopathy PPM Hypertension S/p MV replacement S/p TV repair Echo done 05/2018 - EF 15-20%, LA and RA dilated, RV dilated and hypokinetic, pacemaker electrode in right sided chambers, bioprosthetic valve in mitral position functioning normally, mod AR, no , mod TR, pulm HTN RVSP 65mmHg. Lexiscan MPI stress test 10/2018- was negative for ischemia, EF 15%. Plan: EKG showed paced rhythm 72 no acute ischemic changes. Troponins negative x2. Patient denies any complaints of chest pain. AMI ruled out Patient currently on aspirin, carvedilol 12.5 mg p.o. twice daily, hydralazine 75 mg p.o. every 8 hours, lisinopril 20 mg p.o. daily, Patient has elevated BNP, bilateral lower extremity edema, and reports shortness of breath agree with diuresis with Lasix 40 mg IV twice daily Strict I&O's, close monitoring of renal function repeat BMP in the a.m., daily weights Patient has history of PAF however patient reports that he is not on any a nticoagulation as an outpatient Telemetry reviewed and EKG reviewed while patient is paced underlying rhythm appears to be sinus. Okay to hold anticoagulation for now Echo pending Will hold statin due to elevated LFTs Patient seen in conjunction with Dr. Minaya who agrees with this plan of care - Patient Problems (1) Acute on chronic HFrEF (heart failure with reduced ejection fraction) Current Visit: Yes Status: Acute (2) HTN (hypertension) Current Visit: No Status: Chronic Qualifiers: Hypertension type: essential hypertension Qualified Code(s): I10 - Essential (primary) hypertension (3) Elevated bilirubin Current Visit: No Status: Acute (4) History of atrial fibrillation Current Visit: No Status: Acute (5) Fatty liver Current Visit: No Status: Chronic (6) History of mitral valve replacement with bioprosthetic valve Current Visit: No Status: Chronic (7) H/O tricuspid valve repair Current Visit: No Status: Chronic (8) Nonischemic cardiomyopathy Current Visit: No Status: Chronic (9) Paroxysmal atrial fibrillation Current Visit: No Status: Chronic (10) Cardiac pacemaker in situ Current Visit: No Status: Chronic (11) Obstructive jaundice Current Visit: No Status: Acute (12) Portal hypertension Current Visit: No Status: Acute (13) Hypokalemia Current Visit: Yes Status: Acute (14) Ascites Current Visit: Yes Status: Acute
[2022-04-02 20:36] LABS: INR 1.16 (0.87-1.13)
[2022-04-02 20:37] LABS: Partial Thromboplastin Time 33.5 Sec. (24.2-36.6)
[2022-04-02] MEDS: NICOTINE 7 MG/24 HR PATCH TD SCH (21:01)
[2022-04-02] MEDS: APIXABAN 5 MG TAB PO SCH (21:03)
[2022-04-03 04:47] LABS: Hematocrit 40.3 % (35.5-45.6); Hemoglobin 13.3 gm/dl (11.8-15.2); Mean Corpuscular HGB Conc 33 % (32-34); Mean Corpuscular Volume 87 fl (84-94); Platelet Count 224 K/mm3 (140-440); Red Blood Count 4.65 M/mm3 (3.65-5.03); Red Cell Distribution Width 17.1 % (13.2-15.2)
[2022-04-03 05:05] LABS: BUN/Creatinine Ratio 21; Blood Urea Nitrogen 23 mg/dL (9-20); Hemolysis Index 0
[2022-04-03] MEDS: hydrALAZINE 25 MG TAB PO SCH ×3 (06:06→21:18)
[2022-04-03] MEDS: FUROSEMIDE 40 MG/4 ML INJ IV SCH ×2 (06:07→19:13)
[2022-04-03] MEDS: carvediloL 12.5 MG TAB PO SCH ×2 (09:56→21:18)
[2022-04-03] MEDS: LISINOPRIL 20 MG TAB PO SCH (09:57)
[2022-04-03] MEDS: POTASSIUM CHLORIDE ER 10 MEQ TAB PO SCH (09:57)
[2022-04-03] MEDS: APIXABAN 5 MG TAB PO SCH ×2 (10:41→21:18)
--- NOTE | 2022-04-03 11:13 | Progress Note ---
Assessment and Plan Assessment and plan: #Acute on chronic systolic heart failure -TTE shows LVEF 10-15% -Continue GDMT: coreg and lisinopril -continue diuresis with IV lasix -Strict I's and O, daily weights diuresis with Lasix therapy, thyroid panel, magnesium level, cardiology team consulted. #Paroxysmal atrial fibrillation -telemetry -continue eliquis and coreg -Cardiology team following, assistance appreciated #Obstructive jaundice, chronic #Hepatic Steatosis #Portal hypertension -stable -abdominal ultrasound and CT abd show no acute process -GI evaluated the patient and determined no need for intervention at this time -follow up with GI outpatient #history of tricuspid valve repair #history of mitral valve replacement -stable as seen on TTE #Hypokalemia -will replete and monitor -likely secondary to diuresis #Tobacco use disorder -Smoking cessation counseling, supportive care, behavior change counseling, +15 minutes. #Advanced care planning -Disease education data, care plan discussed, diagnosis discussed, prognosis discussed, patient is full code. Patient knowledges understanding and agreement with care plan, +30 minutes. History Interval history: No acute events overnight. Patient reports improvement in his clinical status since admission. He has had adequate urinary output. Currently not having any chest pain or shortness of breath. We discussed current care plan. Hospitalist Physical - Physical exam Narrative exam: GENERAL: Well-developed well-nourished. Sitting on the side of the bed in no acute distress. HEENT: Normocephalic. Atraumatic. NECK: Supple. CHEST/LUNGS: Midline surgical scar. CTAB on room air HEART/CARDIOVASCULAR: RRR. No murmur, rubs or gallops appreciated. ABDOMEN: +BS. NT/ND. SKIN: No rashes noted. NEURO: No focal motor deficit. Follows all commands. MUSCULOSKELETAL: No joint effusion EXTREMITIES: No cyanosis, clubbing. Trace edema. PSYCH: Cooperative. - Constitutional Vitals: Temp Pulse Resp BP Pulse Ox 97.4 F L 80 18 113/79 99 04/03/22 08:22 04/03/22 09:57 04/03/22 08:22 04/03/22 09:57 04/03/22 10:00 General appearance: Present: no acute distress HEART Score - HEART Score Troponin: Troponin T < 0.010 ng/mL (0.00-0.029) 04/01/22 17:50 Results - Labs CBC & Chem 7: 04/03/22 04:18 04/03/22 04:18 Labs: Laboratory Last Values WBC 4.8 K/mm3 (4.5-11.0) 04/03/22 04:18 RBC 4.65 M/mm3 (3.65-5.03) 04/03/22 04:18 Hgb 13.3 gm/dl (11.8-15.2) 04/03/22 04:18 Hct 40.3 % (35.5-45.6) 04/03/22 04:18 MCV 87 fl (84-94) 04/03/22 04:18 MCH 29 pg (28-32) 04/03/22 04:18 MCHC 33 % (32-34) 04/03/22 04:18 RDW 17.1 % (13.2-15.2) H 04/03/22 04:18 Plt Count 224 K/mm3 (140-440) 04/03/22 04:18 Lymph % (Auto) 15.0 % (13.4-35.0) 04/02/22 03:34 [place] % (Auto) 11.7 % (0.0-7.3) H 04/02/22 03:34 Eos % (Auto) 1.3 % (0.0-4.3) 04/02/22 03:34 Baso % (Auto) 1.3 % (0.0-1.8) 04/02/22 03:34 Lymph # (Auto) 0.8 K/mm3 (1.2-5.4) L 04/02/22 03:34 [place] # (Auto) 0.6 K/mm3 (0.0-0.8) 04/02/22 03:34 Eos # (Auto) 0.1 K/mm3 (0.0-0.4) 04/02/22 03:34 Baso # (Auto) 0.1 K/mm3 (0.0-0.1) 04/02/22 03:34 Seg Neutrophils % 70.7 % (40.0-70.0) H 04/02/22 03:34 Seg Neutrophils # 3.9 K/mm3 (1.8-7.7) 04/02/22 03:34 PT 16.2 Sec. (12.2-14.9) H 04/02/22 20:02 INR 1.16 (0.87-1.13) H 04/02/22 20:02 APTT 33.5 Sec. (24.2-36.6) 04/02/22 20:02 Sodium 139 mmol/L (137-145) 04/03/22 04:18 Potassium 4.1 mmol/L (3.6-5.0) D 04/03/22 04:18 Chloride 100.2 mmol/L (98-107) 04/03/22 04:18 Carbon Dioxide 27 mmol/L (22-30) 04/03/22 04:18 Anion Gap 16 mmol/L 04/03/22 04:18 BUN 23 mg/dL (9-20) H 04/03/22 04:18 Creatinine 1.1 mg/dL (0.8-1.3) 04/03/22 04:18 Estimated GFR > 60 ml/min 04/03/22 04:18 BUN/Creatinine Ratio 21 % 04/03/22 04:18 Glucose 116 mg/dL (75-100) H 04/03/22 04:18 Calcium 9.0 mg/dL (8.4-10.2) 04/03/22 04:18 Magnesium 1.80 mg/dL (1.7-2.3) 04/01/22 20:25 Total Bilirubin 14.90 mg/dL (0.1-1.2) H 04/02/22 03:34 Direct Bilirubin 10.5 mg/dL (0-0.2) H 04/01/22 17:50 Indirect Bilirubin 6.4 mg/dL 04/01/22 17:50 AST 28 units/L (5-40) 04/02/22 03:34 ALT 20 units/L (7-56) 04/02/22 03:34 Alkaline Phosphatase 144 units/L (35-129) H 04/02/22 03:34 Troponin T < 0.010 ng/mL (0.00-0.029) 04/01/22 17:50 NT-Pro-B Natriuret Pep 2850 pg/mL (0-450) H 04/01/22 17:50 Total Protein 5.8 g/dL (6.3-8.2) L 04/02/22 03:34 Albumin 3.3 g/dL (3.9-5) L 04/02/22 03:34 Albumin/Globulin Ratio 1.3 % 04/02/22 03:34 Lipase 39 units/L (13-60) 04/01/22 17:50 TSH 2.920 mlU/mL (0.270-4.200) 04/01/22 20:25 Free T4 1.61 ng/dL (0.76-1.46) H 04/01/22 20:25 Carvajal/IV: Voiding Method Urinal Active Medications - Current Medications Current Medications: Generic Name Dose Route Start Last Admin Trade Name Freq PRN Reason Stop Dose Admin Acetaminophen 650 mg 04/01/22 19:59 Acetaminophen 325 Mg Tab PO Q4H PRN Pain MILD(1-3)/Fever >100.5/PEREZ Albuterol 2.5 mg 04/01/22 19:59 Albuterol 2.5 Mg/3 Ml Nebu IH Q4HRT PRN Shortness Of Breath Apixaban 5 mg 04/02/22 22:00 04/03/22 10:41 Apixaban 5 Mg Tab PO 5 mg Q12HR SARAH Administration Protocol Carvedilol 12.5 mg 04/01/22 22:00 04/03/22 09:56 Carvedilol 12.5 Mg Tab PO 12.5 mg BID SARAH Administration Furosemide 40 mg 04/02/22 06:00 04/03/22 06:07 Furosemide 40 Mg/4 Ml Inj IV 40 mg BID@0600,1800 SARAH Administration Hydralazine HCl 75 mg 04/01/22 22:00 04/03/22 06:06 Hydralazine 25 Mg Tab PO Not Given Q8HR SARAH Hydromorphone HCl 0.5 mg 04/01/22 19:59 Hydromorphone 0.5 Mg/0.5 Ml Inj IV Q13H PRN Pain , Severe (7-10) Lisinopril 20 mg 04/02/22 10:00 04/03/22 09:57 Lisinopril 20 Mg Tab PO 20 mg QDAY SARAH Administration Nicotine 7 mg 04/01/22 21:00 04/02/22 21:01 Nicotine 7 Mg/24 Hr Patch TD Not Given Q24H SARAH Ondansetron HCl 4 mg 04/01/22 19:59 Ondansetron 4 Mg/2 Ml Inj IV Q8H PRN Nausea And Vomiting Oxycodone/Acetaminophen 1 tab 04/01/22 19:59 Oxycodone /Acetaminophen 5-325mg Tab PO Q6H PRN Pain, Moderate (4-6) Potassium Chloride 10 meq 04/02/22 10:00 04/03/22 09:57 Potassium Chloride Er 10 Meq Tab PO 10 meq QDAY SARAH Administration Pseudoephedrine/Acetam/Chlorphenir 10 ml 04/01/22 20:01 Guaifenesin/Codeine 100-10mg Oral Liqd 5 Ml PO Q4H PRN Cough Sodium Chloride 10 ml 04/01/22 22:00 04/03/22 09:56 Sodium Chloride 0.9% 10 Ml Flush Syringe IV 10 ml BID SARAH Administration Sodium Chloride 10 ml 04/01/22 19:59 Sodium Chloride 0.9% 10 Ml Flush Syringe IV PRN PRN LINE FLUSH
--- NOTE | 2022-04-03 12:28 | Progress Note ---
Assessment and Plan Patient is a 46 YO male with a past medical history significant for chronic systolic HF, 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 Acute on chronic HFrEF Hypokalemia Ascites Jaundice-GI following Hypertension Cardiomyopathy PPM Hypertension S/p MV replacement S/p TV repair Echo 04/01/2022-EF 10 to 15% left ventricle is mildly dilated. Severe global hyp okinesis of left ventricle. Left ventricular end-diastolic pressure is elevated. Right ventricle is dilated. Right ventricle is hypokinetic. Device lead is present in right ventricle. Left atrium is mildly dilated. Right atrium is dilated. Bioprosthetic mitral valve is present. Mild to moderate tricuspid regurg Echo done 05/2018 - EF 15-20%, LA and RA dilated, RV dilated and hypokinetic, pacemaker electrode in right sided chambers, bioprosthetic valve in mitral position functioning normally, mod AR, no , mod TR, pulm HTN RVSP 65mmHg. Lexiscan MPI stress test 10/2018- was negative for ischemia, EF 15%. Plan: EKG showed paced rhythm 72 no acute ischemic changes. Troponins negative x2. Patient denies any complaints of chest pain. AMI ruled out Patient currently on aspirin, carvedilol 12.5 mg p.o. twice daily, hydralazine 75 mg p.o. every 8 hours, lisinopril 20 mg p.o. daily, Patient reports good urine output. Continue diuresis with Lasix 40 mg IV twice daily Strict I&O's, close monitoring of renal function repeat BMP in the a.m., daily weights Patient has history of PAF however patient reports that he is not on any anticoagulation as an outpatient Telemetry reviewed and EKG reviewed while patient is paced underlying rhythm appears to be sinus. Okay to hold anticoagu lation for now Will hold statin due to elevated LFTs Patient seen in conjunction with Dr. Minaya who agrees with this plan of care - Patient Problems (1) Acute on chronic HFrEF (heart failure with reduced ejection fraction) Current Visit: Yes Status: Acute (2) HTN (hypertension) Current Visit: No Status: Chronic Qualifiers: Hypertension type: essential hypertension Qualified Code(s): I10 - Essential (primary) hypertension (3) Elevated bilirubin Current Visit: No Status: Acute (4) History of atrial fibrillation Current Visit: No Status: Acute (5) Fatty liver Current Visit: No Status: Chronic (6) History of mitral valve replacement with bioprosthetic valve Current Visit: No Status: Chronic (7) H/O tricuspid valve repair Current Visit: No Status: Chronic (8) Nonischemic cardiomyopathy Current Visit: No Status: Chronic (9) Paroxysmal atrial fibrillation Current Visit: No Status: Chronic (10) Cardiac pacemaker in situ Current Visit: No Status: Chronic (11) Obstructive jaundice Current Visit: No Status: Acute (12) Portal hypertension Current Visit: No Status: Acute (13) Hypokalemia Current Visit: Yes Status: Acute (14) Ascites Current Visit: Yes Status: Acute Subjective Date of service: 04/03/22 Principal diagnosis: Acute on chronic HFrEF Interval history: Patient transferred to telemetry. Patient reports feeling significantly better and continues to report good urine output Paced 80s on monitor Objective Vital Signs Temp Pulse Resp Resp BP BP Pulse Ox 04/03/22 10:00 80 20 98 04/03/22 09:57 80 113/79 04/03/22 09:56 80 113/79 04/03/22 08:22 97.4 F L 81 18 120/84 99 04/03/22 06:06 74 115/70 04/03/22 03:50 97.5 F L 78 18 115/74 98 04/02/22 23:24 99 04/02/22 23:22 20 04/02/22 23:00 18 04/02/22 22:55 97.3 F L 80 18 101/72 100 04/02/22 22:21 79 16 114/86 100 04/02/22 22:11 81 31 H 114/86 99 04/02/22 22:00 78 14 114/86 100 04/02/22 21:18 99 04/02/22 21:02 94/63 04/02/22 21:00 78 17 94/63 95 04/02/22 20:16 95 04/02/22 20:01 81 21 118/85 99 04/02/22 20:00 97.3 F L 04/02/22 19:00 81 19 118/85 94 04/02/22 18:01 77 23 106/78 98 04/02/22 17:01 79 18 102/73 04/02/22 16:00 98.1 F 77 19 102/73 04/02/22 15:00 76 19 100/66 98 04/02/22 14:17 74 102/79 04/02/22 14:15 74 102/79 04/02/22 14:01 73 20 105/82 95 04/02/22 13:01 78 11 L 105/82 98 - Physical Examination General: No Apparent Distress HEENT: Positive: PERRL, Jaundice Neck: Positive: trachea midline Cardiac: Positive: Reg Rate and Rhythm Lungs: Positive: Normal Breath Sounds Neuro: Positive: Grossly Intact Abdomen: Positive: Ascites Skin: Negative: Rash, Suspicious Lesions, Ulceration Extremities: Present: upper extr. pulses, edema - Labs and Meds Coagulation 04/02/22 Range/Units 20:02 PT 16.2 H (12.2-14.9) Sec. INR 1.16 H (0.87-1.13) APTT 33.5 (24.2-36.6) Sec. CBC 04/03/22 Range/Units 04:18 WBC 4.8 (4.5-11.0) K/mm3 RBC 4.65 (3.65-5.03) M/mm3 Hgb 13.3 (11.8-15.2) gm/dl Hct 40.3 (35.5-45.6) % Plt Count 224 (140-440) K/mm3 Comprehensive Metabolic Panel 04/03/22 Range/Units 04:18 Sodium 139 (137-145) mmol/L Potassium 4.1 D (3.6-5.0) mmol/L Chloride 100.2 (98-107) mmol/L Carbon Dioxide 27 (22-30) mmol/L BUN 23 H (9-20) mg/dL Creatinine 1.1 (0.8-1.3) mg/dL Glucose 116 H (75-100) mg/dL Calcium 9.0 (8.4-10.2) mg/dL - Imaging and Cardiology Echo: report reviewed - Telemetry EKG Rhythm: Paced Pacemaker: ventricular pacing w/capt, normal atrial sensing
--- NOTE | 2022-04-03 17:24 | Electrocardiograph Report ---
[facility] Test Date: 2022-04-01 Test Time: 13:31:33 Pat Name: PAUL HARVEY Department: Room: A471 Gender: M Electrotype Caster: NURSE : 1975 Requested By: LISA COLEMAN Order Number: [id number] Reading MD: Gal Travis Measurements Intervals [place] Rate: 90 P: 74 [place]: 137 QRS: 265 QRSD: 189 T: 80 QT: 478 QTc: 585 Interpretive Statements Atrial-sensed ventricular-paced rhythm Biventricular paced rhythm No previous ECG available for comparison Electronically Signed On 04-03-2022 17:23:57 EDT by Gal Travis
--- NOTE | 2022-04-03 17:47 | Electrocardiograph Report ---
[facility] Test Date: 2022-04-02 Test Time: 09:00:52 Pat Name: PAUL HARVEY Department: Room: A471 Gender: M Complaint Evaluation Officer: ALEC : 1975 Requested By: LISA COLEMAN Order Number: [id number] Reading MD: Gal Travis Measurements Intervals [place] Rate: 72 P: 115 MN: 151 QRS: 251 QRSD: 183 T: 69 QT: 529 QTc: 580 Interpretive Statements Atrial-sensed ventricular-paced rhythm No previous ECG available for comparison Electronically Signed On 04-03-2022 17:46:34 EDT by Gal Travis
[2022-04-03] MEDS: NICOTINE 7 MG/24 HR PATCH TD SCH (21:19)
[2022-04-04 06:28] LABS: BUN/Creatinine Ratio 21; Blood Urea Nitrogen 23 mg/dL (9-20); Calcium 8.7 mg/dL (8.4-10.2); Hemolysis Index 15
[2022-04-04] MEDS: FUROSEMIDE 40 MG/4 ML INJ IV SCH ×3 (06:29→21:13)
[2022-04-04] MEDS: hydrALAZINE 25 MG TAB PO SCH ×3 (06:30→21:14)
[2022-04-04] MEDS: carvediloL 25 MG TAB PO SCH ×2 (10:12→21:13)
[2022-04-04] MEDS: POTASSIUM CHLORIDE ER 10 MEQ TAB PO SCH (10:12)
[2022-04-04] MEDS: APIXABAN 5 MG TAB PO SCH ×2 (10:12→21:14)
--- NOTE | 2022-04-04 10:27 | Progress Note ---
Assessment and Plan Patient is a 46 YO male with a past medical history significant for chronic systolic HF, 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 Acute on chronic HFrEF Hypokalemia Ascites Jaundice-GI following Hypertension Cardiomyopathy PPM Hypertension S/p MV replacement S/p TV repair Echo done 05/2018 - EF 15-20%, LA and RA dilated, RV dilated and hypokinetic, pacemaker electrode in right sided chambers, bioprosthetic valve in mitral position functioning normally, mod AR, no , mod TR, pulm HTN RVSP 65mmHg. Lexiscan MPI stress test 10/2018- was negative for ischemia, EF 15%. rec: stop lisinoprinl and start entreo wednesday pm, 36 hours off lisinopril, increase lasix 40mg tid, if fails may consider dobutaine and lasix , discuss with pt need for compliance and diet increase coreg 25mg bid Subjective Date of service: 04/04/22 Principal diagnosis: Acute on chronic HFrEF Interval history: pt has swelling in both legs right > left and has pain Objective Vital Signs Temp Pulse Resp BP BP Pulse Ox 04/04/22 08:38 98.4 F 16 109/73 04/04/22 03:30 97.9 F 76 16 111/62 100 04/04/22 00:00 97.8 F 79 18 103/73 95 04/03/22 22:00 98 04/03/22 21:23 98.4 F 80 18 114/77 99 04/03/22 14:15 77 104/69 04/03/22 12:22 97.9 F 84 16 109/75 99 - Physical Examination General: No Apparent Distress HEENT: Positive: PERRL, Jaundice Neck: Positive: trachea midline Cardiac: Positive: Reg Rate and Rhythm Lungs: Positive: Decreased Breath Sounds Neuro: Positive: Grossly Intact Abdomen: Positive: Ascites Skin: Negative: Rash, Suspicious Lesions, Ulceration Extremities: Present: upper extr. pulses, +4 Edema - Labs and Meds Comprehensive Metabolic Panel 04/04/22 Range/Units 04:57 Sodium 140 (137-145) mmol/L Potassium 3.8 (3.6-5.0) mmol/L Chloride 99.8 (98-107) mmol/L Carbon Dioxide 29 (22-30) mmol/L BUN 23 H (9-20) mg/dL Creatinine 1.1 (0.8-1.3) mg/dL Glucose 124 H (75-100) mg/dL Calcium 8.7 (8.4-10.2) mg/dL - Imaging and Cardiology Echo: report reviewed - Telemetry EKG Rhythm: Paced Pacemaker: ventricular pacing w/capt, normal atrial sensing
--- NOTE | 2022-04-04 10:55 | Progress Note ---
Assessment and Plan Assessment and plan: #Acute on chronic systolic heart failure -TTE shows LVEF 10-15% -Continue GDMT: coreg and lisinopril -lasix increased to 40mg TID; patient reports less reduction of swelling from past hospitalizations -if diuresis does not improve, will defer to Cardiology use of IV ionotropes -Strict I's and O, daily weights -Cardiology following, assistance appreciated #Paroxysmal atrial fibrillation -telemetry -continue eliquis and coreg -Cardiology team following, assistance appreciated #Obstructive jaundice, chronic #Hepatic Steatosis #Portal hypertension -stable -abdominal ultrasound and CT abd show no acute process -GI evaluated the patient and determined no need for intervention at this time -follow up with GI outpatient #history of tricuspid valve repair #history of mitral valve replacement -stable as seen on TTE #Hypokalemia -will replete and monitor -likely secondary to diuresis #Tobacco use disorder -Smoking cessation counseling, supportive care, behavior change counseling, +15 minutes. #Advanced care planning -Disease education data, care plan discussed, diagnosis discussed, prognosis discussed, patient is full code. Patient knowledges understanding and agreement with care plan, +30 minutes. History Interval history: No acute events overnight. Per nursing he had a nose bleed overnight that has resolved. He does have blood tinged sputum when he blows his nose. Patient reports tightness in both of his thighs. He has noticed that he has not had as much urine output in the past as he had on IV diuretics. He feels as though he is accumulating fluid in his thighs. He denies chest pain, shortness of breath, and palpitations. Hospitalist Physical - Physical exam Narrative exam: GENERAL: Well-developed well-nourished. Sitting on the side of the bed in no acute distress. HEENT: Normocephalic. Atraumatic. CHEST/LUNGS: Midline surgical scar. CTAB on room air HEART/CARDIOVASCULAR: RRR. No murmur, rubs or gallops appreciated. ABDOMEN: +BS. NT/ND. NEURO: No focal motor deficit. Follows all commands. MUSCULOSKELETAL: No joint effusion EXTREMITIES: No cyanosis, clubbing. 1+ edema. PSYCH: Cooperative. - Constitutional Vitals: Temp Pulse Resp BP Pulse Ox 98.4 F 76 16 109/73 100 04/04/22 08:38 04/04/22 03:30 04/04/22 08:38 04/04/22 08:38 04/04/22 03:30 General appearance: Present: no acute distress HEART Score - HEART Score Troponin: Troponin T < 0.010 ng/mL (0.00-0.029) 04/01/22 17:50 Results - Labs CBC & Chem 7: 04/03/22 04:18 04/04/22 04:57 Labs: Laboratory Last Values WBC 4.8 K/mm3 (4.5-11.0) 04/03/22 04:18 RBC 4.65 M/mm3 (3.65-5.03) 04/03/22 04:18 Hgb 13.3 gm/dl (11.8-15.2) 04/03/22 04:18 Hct 40.3 % (35.5-45.6) 04/03/22 04:18 MCV 87 fl (84-94) 04/03/22 04:18 MCH 29 pg (28-32) 04/03/22 04:18 MCHC 33 % (32-34) 04/03/22 04:18 RDW 17.1 % (13.2-15.2) H 04/03/22 04:18 Plt Count 224 K/mm3 (140-440) 04/03/22 04:18 Lymph % (Auto) 15.0 % (13.4-35.0) 04/02/22 03:34 [place] % (Auto) 11.7 % (0.0-7.3) H 04/02/22 03:34 Eos % (Auto) 1.3 % (0.0-4.3) 04/02/22 03:34 Baso % (Auto) 1.3 % (0.0-1.8) 04/02/22 03:34 Lymph # (Auto) 0.8 K/mm3 (1.2-5.4) L 04/02/22 03:34 [place] # (Auto) 0.6 K/mm3 (0.0-0.8) 04/02/22 03:34 Eos # (Auto) 0.1 K/mm3 (0.0-0.4) 04/02/22 03:34 Baso # (Auto) 0.1 K/mm3 (0.0-0.1) 04/02/22 03:34 Seg Neutrophils % 70.7 % (40.0-70.0) H 04/02/22 03:34 Seg Neutrophils # 3.9 K/mm3 (1.8-7.7) 04/02/22 03:34 PT 16.2 Sec. (12.2-14.9) H 04/02/22 20:02 INR 1.16 (0.87-1.13) H 04/02/22 20:02 APTT 33.5 Sec. (24.2-36.6) 04/02/22 20:02 Sodium 140 mmol/L (137-145) 04/04/22 04:57 Potassium 3.8 mmol/L (3.6-5.0) 04/04/22 04:57 Chloride 99.8 mmol/L (98-107) 04/04/22 04:57 Carbon Dioxide 29 mmol/L (22-30) 04/04/22 04:57 Anion Gap 15 mmol/L 04/04/22 04:57 BUN 23 mg/dL (9-20) H 04/04/22 04:57 Creatinine 1.1 mg/dL (0.8-1.3) 04/04/22 04:57 Estimated GFR > 60 ml/min 04/04/22 04:57 BUN/Creatinine Ratio 21 % 04/04/22 04:57 Glucose 124 mg/dL (75-100) H 04/04/22 04:57 Calcium 8.7 mg/dL (8.4-10.2) 04/04/22 04:57 Magnesium 1.80 mg/dL (1.7-2.3) 04/01/22 20:25 Total Bilirubin 14.90 mg/dL (0.1-1.2) H 04/02/22 03:34 Direct Bilirubin 10.5 mg/dL (0-0.2) H 04/01/22 17:50 Indirect Bilirubin 6.4 mg/dL 04/01/22 17:50 AST 28 units/L (5-40) 04/02/22 03:34 ALT 20 units/L (7-56) 04/02/22 03:34 Alkaline Phosphatase 144 units/L (35-129) H 04/02/22 03:34 Troponin T < 0.010 ng/mL (0.00-0.029) 04/01/22 17:50 NT-Pro-B Natriuret Pep 2850 pg/mL (0-450) H 04/01/22 17:50 Total Protein 5.8 g/dL (6.3-8.2) L 04/02/22 03:34 Albumin 3.3 g/dL (3.9-5) L 04/02/22 03:34 Albumin/Globulin Ratio 1.3 % 04/02/22 03:34 Lipase 39 units/L (13-60) 04/01/22 17:50 TSH 2.920 mlU/mL (0.270-4.200) 04/01/22 20:25 Free T4 1.61 ng/dL (0.76-1.46) H 04/01/22 20:25 Carvajal/IV: Voiding Method Toilet Active Medications - Current Medications Current Medications: Generic Name Dose Route Start Last Admin Trade Name Freq PRN Reason Stop Dose Admin Acetaminophen 650 mg 04/01/22 19:59 Acetaminophen 325 Mg Tab PO Q4H PRN Pain MILD(1-3)/Fever >100.5/PEREZ Albuterol 2.5 mg 04/01/22 19:59 Albuterol 2.5 Mg/3 Ml Nebu IH Q4HRT PRN Shortness Of Breath Apixaban 5 mg 04/02/22 22:00 04/04/22 10:12 Apixaban 5 Mg Tab PO 5 mg Q12HR SARAH Administration Protocol Carvedilol 25 mg 04/04/22 10:00 04/04/22 10:12 Carvedilol 25 Mg Tab PO 25 mg BID SARAH Administration Furosemide 40 mg 04/04/22 14:00 Furosemide 40 Mg/4 Ml Inj IV TID SARAH Hydralazine HCl 75 mg 04/01/22 22:00 04/04/22 06:30 Hydralazine 25 Mg Tab PO 75 mg Q8HR SARAH Administration Hydromorphone HCl 0.5 mg 04/01/22 19:59 Hydromorphone 0.5 Mg/0.5 Ml Inj IV Q13H PRN Pain , Severe (7-10) Nicotine 7 mg 04/01/22 21:00 04/03/22 21:19 Nicotine 7 Mg/24 Hr Patch TD Not Given Q24H SARAH Ondansetron HCl 4 mg 07/06/22 19:59 Ondansetron 4 Mg/2 Ml Inj IV Q8H PRN Nausea And Vomiting Oxycodone/Acetaminophen 1 tab 04/01/22 19:59 Oxycodone /Acetaminophen 5-325mg Tab PO Q6H PRN Pain, Moderate (4-6) Potassium Chloride 10 meq 04/02/22 10:00 04/04/22 10:12 Potassium Chloride Er 10 Meq Tab PO 10 meq QDAY SARAH Administration Pseudoephedrine/Acetam/Chlorphenir 10 ml 04/01/22 20:01 Guaifenesin/Codeine 100-10mg Oral Liqd 5 Ml PO Q4H PRN Cough Sodium Chloride 10 ml 04/01/22 22:00 04/04/22 10:13 Sodium Chloride 0.9% 10 Ml Flush Syringe IV 10 ml BID SARAH Administration Sodium Chloride 10 ml 04/01/22 19:59 Sodium Chloride 0.9% 10 Ml Flush Syringe IV PRN PRN LINE FLUSH
[2022-04-04] MEDS: NICOTINE 7 MG/24 HR PATCH TD SCH (21:13)
[2022-04-05] MEDS: hydrALAZINE 25 MG TAB PO SCH (05:26)
[2022-04-05] MEDS: FUROSEMIDE 40 MG/4 ML INJ IV SCH ×3 (09:56→17:58)
[2022-04-05] MEDS: APIXABAN 5 MG TAB PO SCH ×2 (09:57→22:09)
[2022-04-05] MEDS: POTASSIUM CHLORIDE ER 10 MEQ TAB PO SCH (09:57)
[2022-04-05] MEDS: carvediloL 25 MG TAB PO SCH ×2 (09:57→22:09)
--- NOTE | 2022-04-05 10:31 | Progress Note ---
Assessment and Plan Patient is a 46 YO male with a past medical history significant for chronic systolic HF, 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 Acute respiratory failure Acute on chronic HFrEF Hypokalemia Ascites Jaundice-resolved Hypertension Cardiomyopathy PPM Hypertension S/p MV replacement S/p TV repair Echo done 05/2018 - EF 15-20%, LA and RA dilated, RV dilated and hypokinetic, pacemaker electrode in right sided chambers, bioprosthetic valve in mitral position functioning normally, mod AR, no , mod TR, pulm HTN RVSP 65mmHg. Lexiscan MPI stress test 10/2018- was negative for ischemia, EF 15%. rec: Patient has lost 10 pounds since admission in view of lower blood pressure decrease Lasix to 40 mg twice a day continue carvedilol hold hydralazine if blood pressure permits will start Entresto in the morning. Patient advised to ambulate. Check a.m. labs. Subjective Date of service: 04/05/22 Principal diagnosis: Acute on chronic HFrEF Interval history: swelling is much improved and sob has improved Objective Vital Signs Temp Pulse Resp BP Pulse Ox 04/05/22 08:24 97.9 F 72 16 105/80 100 04/05/22 05:26 68 04/05/22 04:46 97.9 F 68 19 105/76 99 04/04/22 23:59 97.8 F 74 18 104/63 99 04/04/22 22:00 98 04/04/22 21:13 74 104/78 04/04/22 20:40 80 04/04/22 20:10 97.7 F 74 18 104/78 99 04/04/22 16:05 98.6 F 75 18 101/75 99 04/04/22 11:49 98.2 F 74 18 108/79 99 - Physical Examination General: No Apparent Distress HEENT: Positive: PERRL, Jaundice Neck: Positive: trachea midline Cardiac: Positive: Reg Rate and Rhythm Lungs: Positive: clear to auscultation Neuro: Positive: Grossly Intact Abdomen: Positive: Ascites Skin: Negative: Rash, Suspicious Lesions, Ulceration Extremities: Present: upper extr. pulses, +1 Edema, +4 Edema - Imaging and Cardiology Echo: report reviewed - Telemetry EKG Rhythm: Paced Pacemaker: ventricular pacing w/capt, normal atrial sensing
--- NOTE | 2022-04-05 11:11 | Progress Note ---
Assessment and Plan Assessment and plan: #Acute on chronic systolic heart failure -TTE shows LVEF 10-15% -Continue GDMT: coreg -lasix decreased to 40mg BID -will start Entresto tomorrow; lisinopril held -if diuresis does not improve, will defer to Cardiology use of IV ionotropes -Strict I's and O, daily weights -Cardiology following, assistance appreciated #Paroxysmal atrial fibrillation -telemetry -continue eliquis and coreg -Cardiology team following, assistance appreciated #Obstructive jaundice, chronic #Hepatic Steatosis #Portal hypertension -stable -abdominal ultrasound and CT abd show no acute process -GI evaluated the patient and determined no need for intervention at this time -follow up with GI outpatient #history of tricuspid valve repair #history of mitral valve replacement -stable as seen on TTE #Hypokalemia -will replete and monitor -likely secondary to diuresis #Tobacco use disorder -Smoking cessation counseling, supportive care, behavior change counseling, +15 minutes. #Advanced care planning -Disease education data, care plan discussed, diagnosis discussed, prognosis discussed, patient is full code. Patient knowledges understanding and agreement with care plan, +30 minutes. History Interval history: No acute events overnight. Patient reports decrease in swelling of his feet. He continues to have pain in his thighs and it is exacerbated by movement. He denies chest pain, shortness of breath and palpitations. He is no longer having nose bleeds. Hospitalist Physical - Physical exam Narrative exam: GENERAL: Well-developed well-nourished. Sitting on the side of the bed in no acute distress. HEENT: Normocephalic. Atraumatic. CHEST/LUNGS: Midline surgical scar. CTAB on room air HEART/CARDIOVASCULAR: RRR. No murmur, rubs or gallops appreciated. ABDOMEN: +BS. NT/ND. NEURO: No focal motor deficit. Follows all commands. MUSCULOSKELETAL: No joint effusion EXTREMITIES: No cyanosis, clubbing. 1+ edema. PSYCH: Cooperative. - Constitutional Vitals: Temp Pulse Resp BP Pulse Ox 97.9 F 72 16 105/80 100 04/05/22 08:24 04/05/22 08:24 04/05/22 08:24 04/05/22 08:24 04/05/22 08:24 General appearance: Present: no acute distress HEART Score - HEART Score Troponin: Troponin T < 0.010 ng/mL (0.00-0.029) 04/01/22 17:50 Results - Labs CBC & Chem 7: 04/03/22 04:18 04/04/22 04:57 Labs: Laboratory Last Values WBC 4.8 K/mm3 (4.5-11.0) 04/03/22 04:18 RBC 4.65 M/mm3 (3.65-5.03) 04/03/22 04:18 Hgb 13.3 gm/dl (11.8-15.2) 04/03/22 04:18 Hct 40.3 % (35.5-45.6) 04/03/22 04:18 MCV 87 fl (84-94) 04/03/22 04:18 MCH 29 pg (28-32) 04/03/22 04:18 MCHC 33 % (32-34) 04/03/22 04:18 RDW 17.1 % (13.2-15.2) H 04/03/22 04:18 Plt Count 224 K/mm3 (140-440) 04/03/22 04:18 Lymph % (Auto) 15.0 % (13.4-35.0) 04/02/22 03:34 [place] % (Auto) 11.7 % (0.0-7.3) H 04/02/22 03:34 Eos % (Auto) 1.3 % (0.0-4.3) 04/02/22 03:34 Baso % (Auto) 1.3 % (0.0-1.8) 04/02/22 03:34 Lymph # (Auto) 0.8 K/mm3 (1.2-5.4) L 04/02/22 03:34 [place] # (Auto) 0.6 K/mm3 (0.0-0.8) 04/02/22 03:34 Eos # (Auto) 0.1 K/mm3 (0.0-0.4) 04/02/22 03:34 Baso # (Auto) 0.1 K/mm3 (0.0-0.1) 04/02/22 03:34 Seg Neutrophils % 70.7 % (40.0-70.0) H 04/02/22 03:34 Seg Neutrophils # 3.9 K/mm3 (1.8-7.7) 04/02/22 03:34 PT 16.2 Sec. (12.2-14.9) H 04/02/22 20:02 INR 1.16 (0.87-1.13) H 04/02/22 20:02 APTT 33.5 Sec. (24.2-36.6) 04/02/22 20:02 Sodium 140 mmol/L (137-145) 04/04/22 04:57 Potassium 3.8 mmol/L (3.6-5.0) 04/04/22 04:57 Chloride 99.8 mmol/L (98-107) 04/04/22 04:57 Carbon Dioxide 29 mmol/L (22-30) 04/04/22 04:57 Anion Gap 15 mmol/L 04/04/22 04:57 BUN 23 mg/dL (9-20) H 04/04/22 04:57 Creatinine 1.1 mg/dL (0.8-1.3) 04/04/22 04:57 Estimated GFR > 60 ml/min 04/04/22 04:57 BUN/Creatinine Ratio 21 % 04/04/22 04:57 Glucose 124 mg/dL (75-100) H 04/04/22 04:57 Calcium 8.7 mg/dL (8.4-10.2) 04/04/22 04:57 Magnesium 1.80 mg/dL (1.7-2.3) 04/01/22 20:25 Total Bilirubin 14.90 mg/dL (0.1-1.2) H 04/02/22 03:34 Direct Bilirubin 10.5 mg/dL (0-0.2) H 04/01/22 17:50 Indirect Bilirubin 6.4 mg/dL 04/01/22 17:50 AST 28 units/L (5-40) 04/02/22 03:34 ALT 20 units/L (7-56) 04/02/22 03:34 Alkaline Phosphatase 144 units/L (35-129) H 04/02/22 03:34 Troponin T < 0.010 ng/mL (0.00-0.029) 04/01/22 17:50 NT-Pro-B Natriuret Pep 2850 pg/mL (0-450) H 04/01/22 17:50 Total Protein 5.8 g/dL (6.3-8.2) L 04/02/22 03:34 Albumin 3.3 g/dL (3.9-5) L 04/02/22 03:34 Albumin/Globulin Ratio 1.3 % 04/02/22 03:34 Lipase 39 units/L (13-60) 04/01/22 17:50 TSH 2.920 mlU/mL (0.270-4.200) 04/01/22 20:25 Free T4 1.61 ng/dL (0.76-1.46) H 04/01/22 20:25 Carvajal/IV: Voiding Method Urinal Active Medications - Current Medications Current Medications: Generic Name Dose Route Start Last Admin Trade Name Freq PRN Reason Stop Dose Admin Acetaminophen 650 mg 04/01/22 19:59 Acetaminophen 325 Mg Tab PO Q4H PRN Pain MILD(1-3)/Fever >100.5/PEREZ Albuterol 2.5 mg 04/01/22 19:59 Albuterol 2.5 Mg/3 Ml Nebu IH Q4HRT PRN Shortness Of Breath Apixaban 5 mg 04/02/22 22:00 04/05/22 09:57 Apixaban 5 Mg Tab PO 5 mg Q12HR SARAH Administration Protocol Carvedilol 25 mg 04/04/22 10:00 04/05/22 09:57 Carvedilol 25 Mg Tab PO 25 mg BID SARAH Administration Furosemide 40 mg 04/05/22 10:00 04/05/22 09:57 Furosemide 40 Mg/4 Ml Inj IV 40 mg BID@0600,1700 SARAH Administration Hydromorphone HCl 0.5 mg 04/01/22 19:59 Hydromorphone 0.5 Mg/0.5 Ml Inj IV Q13H PRN Pain , Severe (7-10) Nicotine 7 mg 04/01/22 21:00 04/04/22 21:13 Nicotine 7 Mg/24 Hr Patch TD Not Given Q24H SARAH Ondansetron HCl 4 mg 04/01/22 19:59 Ondansetron 4 Mg/2 Ml Inj IV Q8H PRN Nausea And Vomiting Oxycodone/Acetaminophen 1 tab 04/01/22 19:59 Oxycodone /Acetaminophen 5-325mg Tab PO Q6H PRN Pain, Moderate (4-6) Potassium Chloride 10 meq 04/02/22 10:00 04/05/22 09:57 Potassium Chloride Er 10 Meq Tab PO 10 meq QDAY SARAH Administration Pseudoephedrine/Acetam/Chlorphenir 10 ml 04/01/22 20:01 Guaifenesin/Codeine 100-10mg Oral Liqd 5 Ml PO Q4H PRN Cough Sodium Chloride 10 ml 04/01/22 22:00 04/05/22 09:58 Sodium Chloride 0.9% 10 Ml Flush Syringe IV 10 ml BID SARAH Administration Sodium Chloride 10 ml 04/01/22 19:59 Sodium Chloride 0.9% 10 Ml Flush Syringe IV PRN PRN LINE FLUSH
[2022-04-05] MEDS: NICOTINE 7 MG/24 HR PATCH TD SCH (22:11)
[2022-04-06 04:47] LABS: Hematocrit 38.7 % (35.5-45.6); Hemoglobin 12.8 gm/dl (11.8-15.2)
[2022-04-06 05:14] LABS: BUN/Creatinine Ratio 21; Blood Urea Nitrogen 23 mg/dL (9-20); Hemolysis Index 5
[2022-04-06] MEDS: FUROSEMIDE 40 MG/4 ML INJ IV SCH ×2 (06:45→19:00)
[2022-04-06] MEDS: carvediloL 25 MG TAB PO SCH ×2 (10:28→22:35)
[2022-04-06] MEDS: APIXABAN 5 MG TAB PO SCH ×2 (10:32→23:15)
--- NOTE | 2022-04-06 10:41 | Progress Note ---
Assessment and Plan Patient is a 46 YO male with a past medical history significant for chronic systolic HF, 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 Acute on chronic HFrEF Hypokalemia Ascites Jaundice-GI following Hypertension Cardiomyopathy PPM([employer]) Hypertension S/p MV replacement S/p TV repair Echo 04/01/2022-EF 10 to 15% left ventricle is mildly dilated. Severe global hypokinesis of left ventricle. Left ventricular end-diastolic pressure is elevated. Right ventricle is dilated. Right ventricle is hypokinetic. Device lead is present in right ventricle. Left atrium is mildly dilated. Right atrium is dilated. Bioprosthetic mitral valve is present. Mild to moderate tricuspid regurg Echo done 05/2018 - EF 15-20%, LA and RA dilated, RV dilated and hypokinetic, pacemaker electrode in right sided chambers, bioprosthetic valve in mitral position functioning normally, mod AR, no , mod TR, pulm HTN RVSP 65mmHg. Lexiscan MPI stress test 10/2018- was negative for ischemia, EF 15%. Plan: Patient currently on aspirin, Patient currently on carvedilol 25 mg p.o. twice daily, Patient reports good urine output. Continue diuresis with Lasix 40 mg IV twice daily Strict I&O's, close monitoring of renal function repeat BMP in the a.m., daily weights Anticoagulated on Eliquis Will hold statin due to elevated LFTs Initiate Entresto 24-26 mg p.o. twice daily Device interrogation pending Patient seen in conjunction with Dr. Holman who agrees with this plan of care - Patient Problems (1) Acute on chronic HFrEF (heart failure with reduced ejection fraction) Current Visit: Yes Status: Acute (2) HTN (hypertension) Current Visit: No Status: Chronic Qualifiers: Hypertension type: essential hypertension Qualified Code(s): I10 - Essential (primary) hypertension (3) Elevated bilirubin Current Visit: No Status: Acute (4) History of atrial fibrillation Current Visit: No Status: Acute (5) Fatty liver Current Visit: No Status: Chronic (6) History of mitral valve replacement with bioprosthetic valve Current Visit: No Status: Chronic (7) H/O tricuspid valve repair Current Visit: No Status: Chronic (8) Nonischemic cardiomyopathy Current Visit: No Status: Chronic (9) Paroxysmal atrial fibrillation Current Visit: No Status: Chronic (10) Cardiac pacemaker in situ Current Visit: No Status: Chronic (11) Obstructive jaundice Current Visit: No Status: Acute (12) Portal hypertension Current Visit: No Status: Acute (13) Hypokalemia Current Visit: Yes Status: Acute (14) Ascites Current Visit: Yes Status: Acute Subjective Date of service: 04/06/22 Principal diagnosis: Acute on chronic HFrEF Interval history: Patient sitting on side of the bed in no acute distress. Patient reports feeling well today Paced 80s on monitor Objective Vital Signs Temp Pulse Resp BP Pulse Ox 04/06/22 10:28 80 04/06/22 05:17 98.3 F 75 20 134/65 98 04/06/22 00:17 97.8 F 75 20 114/87 96 04/05/22 22:09 73 113/67 04/05/22 22:00 75 97 04/05/22 20:19 98.7 F 73 17 113/67 97 04/05/22 16:07 98.0 F 73 18 110/78 98 04/05/22 11:34 97.9 F 76 18 108/81 99 - Physical Examination General: No Apparent Distress HEENT: Positive: PERRL, Jaundice Neck: Positive: trachea midline Cardiac: Positive: Reg Rate and Rhythm Lungs: Positive: Normal Breath Sounds Neuro: Positive: Grossly Intact Abdomen: Positive: Ascites Skin: Negative: Rash, Suspicious Lesions, Ulceration Extremities: Present: upper extr. pulses, +4 Edema - Labs and Meds CBC 04/06/22 Range/Units 03:24 Hgb 12.8 (11.8-15.2) gm/dl Hct 38.7 (35.5-45.6) % Comprehensive Metabolic Panel 04/06/22 Range/Units 03:24 Sodium 139 (137-145) mmol/L Potassium 3.9 (3.6-5.0) mmol/L Chloride 99.1 (98-107) mmol/L Carbon Dioxide 29 (22-30) mmol/L BUN 23 H (9-20) mg/dL Creatinine 1.1 (0.8-1.3) mg/dL Glucose 149 H (75-100) mg/dL Calcium 9.0 (8.4-10.2) mg/dL - Imaging and Cardiology Echo: report reviewed - Telemetry EKG Rhythm: Paced Pacemaker: ventricular pacing w/capt, normal atrial sensing
[2022-04-06] MEDS: SACUBITRIL/VALSARTAN 24-26 MG TAB PO SCH ×2 (11:02→22:35)
[2022-04-06] MEDS: POTASSIUM CHLORIDE ER 10 MEQ TAB PO SCH (11:05)
--- NOTE | 2022-04-06 11:37 | Progress Note ---
Assessment and Plan Assessment and plan: #Acute on chronic systolic heart failure -TTE shows LVEF 10-15% -Continue GDMT: coreg -continue lasix 40mg BID -Entresto started today -Strict I's and O, daily weights -Cardiology following, assistance appreciated #Paroxysmal atrial fibrillation -telemetry -continue eliquis and coreg -Cardiology team following, assistance appreciated #Obstructive jaundice, chronic #Hepatic Steatosis #Portal hypertension -stable -abdominal ultrasound and CT abd show no acute process -GI evaluated the patient and determined no need for intervention at this time -follow up with GI outpatient #history of tricuspid valve repair #history of mitral valve replacement -stable as seen on TTE #Hypokalemia -will replete and monitor -likely secondary to diuresis #Tobacco use disorder -Smoking cessation counseling, supportive care, behavior change counseling, +15 minutes. #Advanced care planning -Disease education data, care plan discussed, diagnosis discussed, prognosis discussed, patient is full code. Patient knowledges understanding and agreement with care plan, +30 minutes. History Interval history: No acute events overnight. Patient reports improvement in his lower extremity edema. He has no symptoms or complaints at this time. Hospitalist Physical - Physical exam Narrative exam: GENERAL: Well-developed well-nourished. Sitting on the side of the bed in no acute distress. HEENT: Normocephalic. Atraumatic. CHEST/LUNGS: Midline surgical scar. CTAB on room air HEART/CARDIOVASCULAR: RRR. No murmur, rubs or gallops appreciated. ABDOMEN: +BS. NT/ND. NEURO: No focal motor deficit. Follows all commands. MUSCULOSKELETAL: No joint effusion EXTREMITIES: No cyanosis, clubbing. 1+ edema. PSYCH: Cooperative. - Constitutional Vitals: Temp Pulse Resp BP Pulse Ox 98.3 F 80 20 134/65 98 04/06/22 05:17 04/06/22 10:28 04/06/22 05:17 04/06/22 05:17 04/06/22 05:17 General appearance: Present: no acute distress HEART Score - HEART Score Troponin: Troponin T < 0.010 ng/mL (0.00-0.029) 04/01/22 17:50 Results - Labs CBC & Chem 7: 04/06/22 03:24 04/06/22 03:24 Labs: Laboratory Last Values WBC 4.8 K/mm3 (4.5-11.0) 04/03/22 04:18 RBC 4.65 M/mm3 (3.65-5.03) 04/03/22 04:18 Hgb 12.8 gm/dl (11.8-15.2) 04/06/22 03:24 Hct 38.7 % (35.5-45.6) 04/06/22 03:24 MCV 87 fl (84-94) 04/03/22 04:18 MCH 29 pg (28-32) 04/03/22 04:18 MCHC 33 % (32-34) 04/03/22 04:18 RDW 17.1 % (13.2-15.2) H 04/03/22 04:18 Plt Count 224 K/mm3 (140-440) 04/03/22 04:18 Lymph % (Auto) 15.0 % (13.4-35.0) 04/02/22 03:34 [place] % (Auto) 11.7 % (0.0-7.3) H 04/02/22 03:34 Eos % (Auto) 1.3 % (0.0-4.3) 04/02/22 03:34 Baso % (Auto) 1.3 % (0.0-1.8) 04/02/22 03:34 Lymph # (Auto) 0.8 K/mm3 (1.2-5.4) L 04/02/22 03:34 [place] # (Auto) 0.6 K/mm3 (0.0-0.8) 04/02/22 03:34 Eos # (Auto) 0.1 K/mm3 (0.0-0.4) 04/02/22 03:34 Baso # (Auto) 0.1 K/mm3 (0.0-0.1) 04/02/22 03:34 Seg Neutrophils % 70.7 % (40.0-70.0) H 04/02/22 03:34 Seg Neutrophils # 3.9 K/mm3 (1.8-7.7) 04/02/22 03:34 PT 16.2 Sec. (12.2-14.9) H 04/02/22 20:02 INR 1.16 (0.87-1.13) H 04/02/22 20:02 APTT 33.5 Sec. (24.2-36.6) 04/02/22 20:02 Sodium 139 mmol/L (137-145) 04/06/22 03:24 Potassium 3.9 mmol/L (3.6-5.0) 04/06/22 03:24 Chloride 99.1 mmol/L (98-107) 04/06/22 03:24 Carbon Dioxide 29 mmol/L (22-30) 04/06/22 03:24 Anion Gap 15 mmol/L 04/06/22 03:24 BUN 23 mg/dL (9-20) H 04/06/22 03:24 Creatinine 1.1 mg/dL (0.8-1.3) 04/06/22 03:24 Estimated GFR > 60 ml/min 04/06/22 03:24 BUN/Creatinine Ratio 21 % 04/06/22 03:24 Glucose 149 mg/dL (75-100) H 04/06/22 03:24 Calcium 9.0 mg/dL (8.4-10.2) 04/06/22 03:24 Magnesium 2.20 mg/dL (1.7-2.3) 04/06/22 03:24 Total Bilirubin 14.90 mg/dL (0.1-1.2) H 04/02/22 03:34 Direct Bilirubin 10.5 mg/dL (0-0.2) H 04/01/22 17:50 Indirect Bilirubin 6.4 mg/dL 04/01/22 17:50 AST 28 units/L (5-40) 04/02/22 03:34 ALT 20 units/L (7-56) 04/02/22 03:34 Alkaline Phosphatase 144 units/L (35-129) H 04/02/22 03:34 Troponin T < 0.010 ng/mL (0.00-0.029) 04/01/22 17:50 NT-Pro-B Natriuret Pep 2850 pg/mL (0-450) H 04/01/22 17:50 Total Protein 5.8 g/dL (6.3-8.2) L 04/02/22 03:34 Albumin 3.3 g/dL (3.9-5) L 04/02/22 03:34 Albumin/Globulin Ratio 1.3 % 04/02/22 03:34 Lipase 39 units/L (13-60) 04/01/22 17:50 TSH 2.920 mlU/mL (0.270-4.200) 04/01/22 20:25 Free T4 1.61 ng/dL (0.76-1.46) H 04/01/22 20:25 Carvajal/IV: Voiding Method Toilet Active Medications - Current Medications Current Medications: Generic Name Dose Route Start Last Admin Trade Name Freq PRN Reason Stop Dose Admin Acetaminophen 650 mg 04/01/22 19:59 Acetaminophen 325 Mg Tab PO Q4H PRN Pain MILD(1-3)/Fever >100.5/PEREZ Albuterol 2.5 mg 04/01/22 19:59 Albuterol 2.5 Mg/3 Ml Nebu IH Q4HRT PRN Shortness Of Breath Apixaban 5 mg 04/02/22 22:00 04/06/22 10:32 Apixaban 5 Mg Tab PO 5 mg Q12HR SARAH Administration Protocol Carvedilol 25 mg 04/04/22 10:00 04/06/22 10:28 Carvedilol 25 Mg Tab PO 25 mg BID SARAH Administration Furosemide 40 mg 04/05/22 10:00 04/05/22 17:58 Furosemide 40 Mg/4 Ml Inj IV 40 mg BID@0600,1700 SARAH Administration Hydromorphone HCl 0.5 mg 04/01/22 19:59 Hydromorphone 0.5 Mg/0.5 Ml Inj IV Q13H PRN Pain , Severe (7-10) Nicotine 7 mg 04/01/22 21:00 04/05/22 22:11 Nicotine 7 Mg/24 Hr Patch TD Not Given Q24H SARAH Ondansetron HCl 4 mg 04/01/22 19:59 Ondansetron 4 Mg/2 Ml Inj IV Q8H PRN Nausea And Vomiting Oxycodone/Acetaminophen 1 tab 04/01/22 19:59 Oxycodone /Acetaminophen 5-325mg Tab PO Q6H PRN Pain, Moderate (4-6) Potassium Chloride 10 meq 04/02/22 10:00 04/06/22 11:05 Potassium Chloride Er 10 Meq Tab PO 10 meq QDAY SARAH Administration Pseudoephedrine/Acetam/Chlorphenir 10 ml 04/01/22 20:01 Guaifenesin/Codeine 100-10mg Oral Liqd 5 Ml PO Q4H PRN Cough Sacubitril/Valsartan 1 each 04/06/22 10:00 04/06/22 11:02 Sacubitril/Valsartan 24-26 Mg Tab PO 1 each BID SARAH Administration Sodium Chloride 10 ml 04/01/22 22:00 04/06/22 10:33 Sodium Chloride 0.9% 10 Ml Flush Syringe IV 10 ml BID SARAH Administration Sodium Chloride 10 ml 04/01/22 19:59 04/05/22 17:58 Sodium Chloride 0.9% 10 Ml Flush Syringe IV 10 ml PRN PRN Administration LINE FLUSH
--- NOTE | 2022-04-06 15:56 | Vascular Lab Report ---
DUPLEX DOPPLER LOWER EXTREMITY VEINS, BILATERAL INDICATION / CLINICAL INFORMATION: swelling. TECHNIQUE: Duplex doppler imaging was performed through the veins of both lower extremities using clive ous compression and other maneuvers. COMPARISON: Bilateral lower extremity venous Doppler 11/01/2018. FINDINGS: RIGHT COMMON FEMORAL VEIN: Negative. RIGHT FEMORAL VEIN: Negative. RIGHT POPLITEAL VEIN: Negative. RIGHT CALF VEINS: Negative. LEFT COMMON FEMORAL VEIN: Negative. LEFT FEMORAL VEIN: Negative. LEFT POPLITEAL VEIN: Negative. LEFT CALF VEINS: Negative. ADDITIONAL FINDINGS: None. IMPRESSION: 1. No sonographic evidence for DVT in either lower extremity. Scribed by: Lorin Marin RDMS, NICKOLAS, SUDHA Scribed: 04/06/2022 2:49 PM I have reviewed the images, agree with this report, and edited this report as needed. Signer Name: Otto Iniguez MD Signed: 04/06/2022 3:52 PM Workstation Name: [id number]
[2022-04-06] MEDS: NICOTINE 7 MG/24 HR PATCH TD SCH (22:30)
[2022-04-07 06:47] LABS: BUN/Creatinine Ratio 18; Blood Urea Nitrogen 20 mg/dL (9-20); Hemolysis Index 0
[2022-04-07] MEDS: FUROSEMIDE 40 MG/4 ML INJ IV SCH (07:28)
[2022-04-07] MEDS ORDERED: SPIRONOLACTONE 25 MG TAB PO SCH (10:00)
--- NOTE | 2022-04-07 10:32 | Progress Note ---
Assessment and Plan Patient is a 46 YO male with a past medical history significant for chronic systolic HF, 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 Acute on chronic HFrEF Hypokalemia Ascites Jaundice-GI following Hypertension Cardiomyopathy PPM([employer]) Hypertension S/p MV replacement S/p TV repair Echo 04/01/2022-EF 10 to 15% left ventricle is mildly dilated. Severe global hypokinesis of left ventricle. Left ventricular end-diastolic pressure is elevated. Right ventricle is dilated. Right ventricle is hypokinetic. Device lead is present in right ventricle. Left atrium is mildly dilated. Right atrium is dilated. Bioprosthetic mitral valve is present. Mild to moderate tricuspid regurg Echo done 05/2018 - EF 15-20%, LA and RA dilated, RV dilated and hypokinetic, pacemaker electrode in right sided chambers, bioprosthetic valve in mitral position functioning normally, mod AR, no , mod TR, pulm HTN RVSP 65mmHg. Lexiscan MPI stress test 10/2018- was negative for ischemia, EF 15%. Plan: Patient currently on aspirin, Patient currently on carvedilol 25 mg p.o. twice daily,Initiate Entresto 24-26 mg p.o. twice daily Appears near euvolemic on exam. We will stop IV Lasix and convert to Lasix 40 mg p.o. twice daily Will initiate Aldactone 25 mg p.o. daily Anticoagulated on Eliquis Will hold statin due to elevated LFTs Discussed plan of care with patient who verbalized understanding and acknowledgment Cardiac status otherwise stable for discharge Patient has a follow-up appointment with Dr. Jennings, [facility] heart specialists, on 04/29/2022 at 11:30am in our [place] location . Phone #[phone] Patient seen in conjunction with Dr. Holman who agrees with this plan of care - Patient Problems (1) Acute on chronic HFrEF (heart failure with reduced ejection fraction) Current Visit: Yes Status: Acute (2) HTN (hypertension) Current Visit: No Status: Chronic Qualifiers: Hypertension type: essential hypertension (3) Elevated bilirubin Current Visit: No Status: Acute (4) History of atrial fibrillation Current Visit: No Status: Acute (5) Fatty liver Current Visit: No Status: Chronic (6) History of mitral valve replacement with bioprosthetic valve Current Visit: No Status: Chronic (7) H/O tricuspid valve repair Current Visit: No Status: Chronic (8) Nonischemic cardiomyopathy Current Visit: No Status: Chronic (9) Paroxysmal atrial fibrillation Current Visit: No Status: Chronic (10) Cardiac pacemaker in situ Current Visit: No Status: Chronic (11) Obstructive jaundice Current Visit: No Status: Acute (12) Portal hypertension Current Visit: No Status: Acute (13) Hypokalemia Current Visit: Yes Status: Acute (14) Ascites Current Visit: Yes Status: Acute Subjective Date of service: 04/07/22 Principal diagnosis: Acute on chronic HFrEF Interval history: Patient sitting on side of the bed in no acute distress. Patient reports feeling well today Paced 80s on monitor Objective Vital Signs Temp Pulse Resp BP BP Pulse Ox 04/07/22 07:35 98.5 F 76 16 109/73 99 04/07/22 00:45 98.7 F 80 18 105/75 98 04/06/22 22:00 78 98 04/06/22 20:40 98.0 F 77 20 99/65 97 04/06/22 17:38 97.9 F 69 18 106/64 96 - Physical Examination General: No Apparent Distress HEENT: Positive: PERRL, Jaundice Neck: Positive: trachea midline Cardiac: Positive: Reg Rate and Rhythm Lungs: Positive: Normal Breath Sounds Neuro: Positive: Grossly Intact Abdomen: Positive: Ascites Skin: Negative: Rash, Suspicious Lesions, Ulceration Extremities: Present: upper extr. pulses, edema - Labs and Meds Comprehensive Metabolic Panel 04/07/22 Range/Units 05:09 Sodium 139 (137-145) mmol/L Potassium 4.3 (3.6-5.0) mmol/L Chloride 98.0 (98-107) mmol/L Carbon Dioxide 31 H (22-30) mmol/L BUN 20 (9-20) mg/dL Creatinine 1.1 (0.8-1.3) mg/dL Glucose 104 H (75-100) mg/dL Calcium 9.0 (8.4-10.2) mg/dL - Imaging and Cardiology Echo: report reviewed - Telemetry EKG Rhythm: Paced Pacemaker: ventricular pacing w/capt, normal atrial sensing
[2022-04-07] MEDS: SACUBITRIL/VALSARTAN 24-26 MG TAB PO SCH (11:10)
[2022-04-07] MEDS: APIXABAN 5 MG TAB PO SCH (11:13)
[2022-04-07] MEDS: carvediloL 25 MG TAB PO SCH (11:13)
[2022-04-07] MEDS: POTASSIUM CHLORIDE ER 10 MEQ TAB PO SCH (11:13)
[2022-04-07 11:14] VITALS: BP 113/78
--- NOTE | 2022-04-07 13:13 | Discharge Summary ---
Providers - Providers Date of Admission: 04/01/22 19:59 Date of discharge: 04/07/22 Attending physician: EDENILSON CAMPOVERDE MD 04/01/22 20:05 Consult to Physician [CONS] Routine Comment: Consulting Provider: JONATAN MONTES Physician Instructions: Reason For Exam: elevated bilirubin 04/01/22 20:07 Consult to Cardiology [CONS] Routine Consulting Provider: MALIHA EARLY Reason For Exam: chf Primary care physician: HOSE TESTER Hospitalization Reason for admission: Acute on chronic systolic heart failure Condition: Fair Pertinent studies: Reviewed. Procedures: None. Hospital course: The patient is a 46 YO Male with CHF(EF 25%), CAD S/P CABG, Paroxysmal Atrial Fib not on therapeutic anticoagulation, HTN, HLD presents to ED for evaluation. Patient reports "my legs are swollen and I feel short of breath". Patient states that over the past 2 weeks he has experienced shortness of breath, dyspnea on exertion, dyspnea at rest, decreased exercise tolerance, orthopnea, paroxysmal nocturnal dyspnea, and 15 pound weight gain with worsening symptoms over the past few days. Patient transported to [facility] via private vehicle for further care and evaluation of the aforementioned symptoms. The patient was seen and evaluated in the emergency department. All lab and imaging studies reviewed. To have symptoms consistent with CHF decompensation, hyperkalemia, obstructive jaundice with concomitant portal hypertension. Patient admitted to telemetry and initiated on CHF protocol due to increased risk of worsening symptoms and for medical stabilization. GI team consulted in ED. patient was found to have chronic obstructive jaundice in the setting of hepatic steatosis and portal hypertension. Right upper quadrant ultrasound and CT abdomen revealed no acute process. Gastroenterology determined there is no need for intervention at this time. Patient underwent TTE revealing an EF 10 to 15% in the setting of acute on chronic systolic heart failure. Cardiology recommended initiating Entresto, the patient has tolerated it thus far. Patient was counseled about his tobacco dependence and medication compliance. Patient expressed understanding. Patient is medically clear for discharge. Disposition: 01 HOME / SELF CARE / HOMELESS Final Discharge Diagnosis (Prints w/discharge instructions): Acute on chronic systolic heart failure, paroxysmal atrial fibrillation, chronic obstructive jaundice, hepatic steatosis, portal hypertension, history of tricuspid valve repair, history of mitral valve replacement, hypokalemia, tobacco dependence, obesity. Time spent for discharge: 45 min Core Measure Documentation - Palliative Care Palliative Care/ Comfort Measures: Not Applicable - Core Measures Any of the following diagnoses?: heart failure - Heart Failure Discharge Requirements KAREN/ARB for LVSD if EF <40%: Yes Beta trev at discharge: Yes Exam - Constitutional Vitals: Temp Pulse Resp BP Pulse Ox 98.1 F 78 18 113/78 98 04/07/22 08:07 04/07/22 11:13 04/07/22 08:07 04/07/22 11:13 04/07/22 08:07 General appearance: Present: no acute distress, well-nourished, obese - EENT Eyes: Present: PERRL, EOM intact ENT: hearing intact, clear oral mucosa, dentition normal - Neck Neck: Present: supple, normal ROM - Respiratory Respiratory effort: normal Respiratory: bilateral: CTA - Cardiovascular Rhythm: regular Heart Sounds: Present: S1 & S2 - Extremities Extremities: no ischemia, pulses intact, pulses symmetrical, No edema, normal temperature, normal color, Full ROM Peripheral Pulses: within normal limits - Abdominal General gastrointestinal: Present: soft, non-tender, non-distended, normal bowel sounds Male genitourinary: Present: deferred - Rectal Rectal Exam: deferred - Integumentary Integumentary: Present: clear, warm, dry - Musculoskeletal Musculoskeletal: strength equal bilaterally - Psychiatric Psychiatric: appropriate mood/affect, intact judgment & insight, memory intact, cooperative - Neurologic Neurologic: CNII-XII intact, moves all extremities - Allied Health Allied health notes reviewed: nursing Plan Activity: no restrictions Diet: low salt Special Instructions: restrict fluid intake to (2 L/day) Additional Instructions: The patient is a 46 YO Male with CHF(EF 25%), CAD S/P CABG, Paroxysmal Atrial Fib not on therapeutic anticoagulation, HTN, HLD presents to ED for evaluation. Patient reports "my legs are swollen and I feel short of breath". Patient states that over the past 2 weeks he has experienced shortness of breath, dyspnea on exertion, dyspnea at rest, decreased exercise tolerance, orthopnea, paroxysmal nocturnal dyspnea, and 15 pound weight gain with worsening symptoms over the past few days. Patient transported to [facility] via private vehicle for further care and evaluation of the aforementioned symptoms. The patient was seen and evaluated in the emergency department. All lab and imaging studies reviewed. To have symptoms consistent with CHF decompensation, hyperkalemia, obstructive jaundice with concomitant portal hypertension. Patient admitted to telemetry and initiated on CHF protocol due to increased risk of worsening symptoms and for medical stabilization. GI team consulted in ED. patient was found to have chronic obstructive jaundice in the setting of hepatic steatosis and portal hypertension. Right upper quadrant ultrasound and CT abdomen revealed no acute process. Gastroenterology determined there is no need for intervention at this time. Patient underwent TTE revealing an EF 10 to 15% in the setting of acute on chronic systolic heart failure. Cardiology recommended initiating Entresto, the patient has tolerated it thus far. Patient was counseled about his tobacco dependence and medication compliance. Patient expressed understanding. Patient is medically clear for discharge. Care Plan Goals: Patient is medically clear for discharge. Assessment: The patient is a 46 YO Male with CHF(EF 25%), CAD S/P CABG, Paroxysmal Atrial Fib not on therapeutic anticoagulation, HTN, HLD presents to ED for evaluation. Patient reports "my legs are swollen and I feel short of breath". Patient states that over the past 2 weeks he has experienced shortness of breath, dyspnea on exertion, dyspnea at rest, decreased exercise tolerance, orthopnea, paroxysmal nocturnal dyspnea, and 15 pound weight gain with worsening symptoms over the past few days. Patient transported to [facility] via private vehicle for further care and evaluation of the aforementioned symptoms. The patient was seen and evaluated in the emergency department. All lab and imaging studies reviewed. To have symptoms consistent with CHF decompensation, hyperkalemia, obstructive jaundice with concomitant portal hypertension. Patient admitted to telemetry and initiated on CHF protocol due to increased risk of worsening symptoms and for medical stabilization. GI team consulted in ED. patient was found to have chronic obstructive jaundice in the setting of hepatic steatosis and portal hypertension. Right upper quadrant ultrasound and CT abdomen revealed no acute process. Gastroenterology determined there is no need for intervention at this time. Patient underwent TTE revealing an EF 10 to 15% in the setting of acute on chronic systolic heart failure. Cardiology recommended initiating Entresto, the patient has tolerated it thus far. Patient was coun seled about his tobacco dependence and medication compliance. Patient expressed understanding. Patient is medically clear for discharge. Follow up with: GABRIELLE SUBRAMANIAN MD [Primary Care Provider] - 7 Days NHI MCMAHON MD [Staff Physician] - 14 Days Prescriptions: AtorvaSTATin 10 mg PO QHS 30 Days #30 tab Spironolactone [Aldactone] 25 mg PO QDAY #30 tablet carvediloL [Coreg] 25 mg PO BID 30 Days #60 tablet Apixaban [Eliquis] 5 mg PO BID 30 Days #60 tab Sacubitril/Valsartan [Entresto 24 - 26 mg] 1 each PO BID 30 Days #60 tablet Furosemide [Lasix TAB] 80 mg PO BID 30 Days #60 tab
[2022-04-07] MEDS ORDERED: FUROSEMIDE 40 MG TAB PO SCH (18:00)
== END 2022-04-07 16:35 | disposition home or self-care (01) | DRG 291 ==
LOC: ED 13:10 → 4A 19:59 → IMCU 23:39 → 4A 04-02 22:44
PROVIDERS: ADMIT Internal Medicine; ATTEND Student in an Organized Health Care Education/Training Program
DX: I11.0 Hypertensive heart disease with heart failure (principal); K83.1 Obstruction of bile duct; I50.43 Acute on chronic combined systolic (congestive) and diastolic (congestive) heart failure; K76.6 Portal hypertension; R18.8 Other ascites; K76.0 Fatty (change of) liver, not elsewhere classified; I48.0 Paroxysmal atrial fibrillation; Z91.14 Patient's other noncompliance with medication regimen; F17.200 Nicotine dependence, unspecified, uncomplicated; E87.6 Hypokalemia; Z95.1 Presence of aortocoronary bypass graft; E78.5 Hyperlipidemia, unspecified; Z71.6 Tobacco abuse counseling; I42.8 Other cardiomyopathies; E66.9 Obesity, unspecified; Z86.79 Personal history of other diseases of the circulatory system; Z95.810 Presence of automatic (implantable) cardiac defibrillator; Z79.82 Long term (current) use of aspirin; Z79.01 Long term (current) use of anticoagulants; Z79.899 Other long term (current) drug therapy; Z83.3 Family history of diabetes mellitus; Z82.49 Family history of ischemic heart disease and other diseases of the circulatory system; Z68.34 Body mass index [BMI] 34.0-34.9, adult
CPT/HCPCS: 36415; 71046; 74177; 76705; 80048; 80053; 82247; 82248; 83690; 83735; 83880; 84439; 84443; 84484; 85014; 85018; 85025; 85027; 85610; 85730; 93005; 93306; 93970; 94760; 99406; G0378; C8929; J1940; J3480; Q9967

== ENCOUNTER 2022-04-10 13:40 | Inpatient (IN) | payer MEDICARE, MEDICAID ==
[2022-04-10] MEDS ORDERED: ACETAMINOPHEN 500 MG TAB PO ONE (15:51)
[2022-04-10] MEDS ORDERED: MORPHINE 4 MG/1 ML INJ IV STA (17:04)
[2022-04-10] MEDS ORDERED: ONDANSETRON 4 MG/2 ML INJ IV STA (17:04)
[2022-04-10] MEDS ORDERED: SODIUM CHLORIDE 0.9% 1000 ML 1,000 ML IV ONE (17:04)
--- NOTE | 2022-04-10 17:07 | Event Note ---
ED Screening Note ED Screening Note: 46 y/o male with PMH of CAD, CABG, Pacemaker, Smoker presents to ED c/o chest pain and sob with fever, nausea and vomiting and abdominal aches for the last few days progressively worsening. Pain is now shooting down back to legs too. Denies trauma This initial assessment/diagnostic orders/clinical plan/treatment(s) is/are subject to change based on patients health status, clinical progression and re- assessment by fellow clinical providers in the ED. Further treatment and workup at subsequent clinical providers discretion. Patient/guardian urged not to elope from the ED as their condition may be serious if not clinically assessed and managed. Initial orders include: Cardio/sepsis workup
--- NOTE | 2022-04-10 17:28 | XRay Report ---
CHEST 1 VIEW 04/10/2022 4:21 PM INDICATION / CLINICAL INFORMATION: Chest Pain. COMPARISON: 04/01/2022 FINDINGS: SUPPORT DEVICES: Unchanged. HEART / MEDIASTINUM: Redemonstrated cardiomegaly. LUNGS / PLEURA: No significant pulmonary or pleural abnormality. No pneumothorax. ADDITIONAL FINDINGS: No significant additional findings. IMPRESSION: 1. No acute findings. Signer Name: Bret Larios DO Signed: 04/10/2022 5:24 PM Workstation Name: [email or web address]
[2022-04-10] MEDS ORDERED: dexAMETHasone 4 MG/ML VIAL IV ONE (17:35)
--- NOTE | 2022-04-10 17:38 | Emergency Department Report ---
ED General Adult HPI - General Chief complaint: Nausea/Vomiting/Diarrhea Stated complaint: Nausea vomiting diarrhea body aches and weakness PUI?: Yes Time Seen by Provider: 04/10/22 17:16 Source: patient, RN notes reviewed, old records reviewed Mode of arrival: Ambulatory Limitations: No Limitations - History of Present Illness Initial comments: The patient was evaluated in the emergency department for symptoms described in the history of present illness. He/she was evaluated in the context of the global COVID-19 pandemic, which necessitated consideration that the patient might be at risk for infection with the virus that causes COVID-19. Institutional protocols and algorithms that pertain to the evaluation of patients at risk for COVID-19 are in a state of rapid change based on information released by regulatory bodies including the CDC and federal and state organizations. These policies and algorithms were followed during the patient's care in the emergency department. Please note that these policies, procedures and recommendations changed on a rapid basis. During the entire history and physical examination, I had on complete personal protective equipment. The patient is a 46-year-old gentleman, with a presumed history of nonischemic cardiomyopathy, history of congestive heart failure, EF of 10 to 15%, hypokalemia, ascites, chronic jaundice, hypertension, pacemaker in situ, [employer], status post mitral and tricuspid valve repair/replacement, presents to the department today with complaints of body aches, fever chill, nausea vomiting, malaise and fatigue Patient reports No loss of taste or smell. Patient denies dysuria. Patient endorses generalized body aches. Patient endorses unintentional weight gain. Patient reports that he is anxious and scared about receiving the COVID-19 vaccination. No recent antibiotic use. Patient was recently discharged from this hospital for CHF exacerbation -: Gradual, days(s) Location: back, abdomen, left, right, upper extremity, lower extremity Severity scale (0 -10): 10 Quality: aching Consistency: constant Improves with: rest Worsens with: movement - Related Data Previous Rx's Medication Instructions Recorded Last Taken Type Apixaban [Eliquis] 5 mg PO BID 30 Days #60 tab 04/06/22 Unknown Rx AtorvaSTATin 10 mg PO QHS 30 Days #30 tab 04/06/22 Unknown Rx Furosemide [Lasix TAB] 80 mg PO BID 30 Days #60 tab 04/06/22 Unknown Rx Sacubitril/Valsartan [Entresto 24 1 each PO BID 30 Days #60 tablet 04/06/22 Unknown Rx - 26 mg] carvediloL [Coreg] 25 mg PO BID 30 Days #60 tablet 04/06/22 Unknown Rx Spironolactone [Aldactone] 25 mg PO QDAY #30 tablet 04/07/22 Unknown Rx Allergies Allergy/AdvReac Type Severity Reaction Status Date / Time No Known Allergies Allergy Verified 04/10/22 14:10 ED Review of Systems ROS: Stated complaint: CHEST PAIN/HEART PROBLEMS Other details as noted in HPI Constitutional: chills, fever, malaise, weakness Eyes: denies: eye discharge ENT: congestion Respiratory: shortness of breath Cardiovascular: edema. denies: chest pain Gastrointestinal: nausea, vomiting, diarrhea. denies: abdominal pain Musculoskeletal: back pain, arthralgia, myalgia Neurological: weakness ED Past Medical Hx - Past Medical History Hx Hypertension: Yes Hx Congestive Heart Failure: Yes Hx Diabetes: No Hx Liver Disease: Yes Hx Asthma: No Hx COPD: No - Surgical History Hx Open Heart Surgery: Yes Hx Pacemaker: Yes Hx Internal Defibrillator: Yes Additional Surgical History: AICD, mitral valve replacement with tissue prosthesis 2016, tricuspid valve repair 11/26 done at 19. Paroxysmal atrial fibrillation - Social History Smoking Status: Former Smoker Substance Use Type: None - Medications Home Medications: Home Medications Medication Instructions Recorded Confirmed Last Taken Type Apixaban [Eliquis] 5 mg PO BID 30 Days #60 tab 04/06/22 Unknown Rx AtorvaSTATin 10 mg PO QHS 30 Days #30 tab 04/06/22 Unknown Rx Furosemide [Lasix TAB] 80 mg PO BID 30 Days #60 tab 04/06/22 Unknown Rx Sacubitril/Valsartan [Entresto 24 1 each PO BID 30 Days #60 tablet 04/06/22 Unknown Rx - 26 mg] carvediloL [Coreg] 25 mg PO BID 30 Days #60 tablet 04/06/22 Unknown Rx Spironolactone [Aldactone] 25 mg PO QDAY #30 tablet 04/07/22 Unknown Rx ED Physical Exam - General Limitations: Physical Limitation General appearance: alert, anxious, obese - Head Head exam: Present: atraumatic, normocephalic - Eye Eye exam: Present: normal appearance, EOMI, scleral icterus (Patient reports scleral icterus is chronic). Absent: nystagmus - ENT ENT exam: Present: normal exam, normal orophraynx, mucous membranes moist, normal external ear exam - Neck Neck exam: Present: normal inspection, full ROM. Absent: tenderness, meningismus - Respiratory Respiratory exam: Present: respiratory distress, other (Pulmonary auscultation not performed secondary to lack of disposable stethoscope). Absent: stridor - Cardiovascular Cardiovascular Exam: Present: tachycardia, JVD (4 to 5 cm of JVD noted bilaterally.), other (Tachycardic rate is seen on child monitor.) - GI/Abdominal GI/Abdominal exam: Present: soft, distended. Absent: tenderness, guarding, rebound, rigid, pulsatile mass - Rectal Rectal exam: Present: deferred - Extremities Exam Extremities exam: Present: normal inspection, full ROM, pedal edema (3+ edema in the bilateral lower extremities), other (2+ pulses noted in the bilateral upper and lower extremities. There is no palpable cord. negative Homans sign. Muscular compartments are soft. The pelvis is stable.). Absent: calf tendernes s - Back Exam Back exam: Present: normal inspection. Absent: tenderness, CVA tenderness (R), CVA tenderness (L), paraspinal tenderness, vertebral tenderness - Neurological Exam Neurological exam: Present: alert, oriented X3, other (No facial droop. Tongue midline. Extraocular movements intact bilaterally. Facial sensation intact to light touch in V1, V2, V3 distribution bilaterally. 5 and a 5 strength in 4 extremities. Sensation intact to light touch in 4 extremities.) - Psychiatric Psychiatric exam: Present: anxious - Skin Skin exam: Present: warm, dry, intact, normal color. Absent: rash ED Course Vital Signs 04/10/22 04/10/22 04/10/22 14:06 17:36 17:46 Temperature 103 F H Pulse Rate 117 H Respiratory 18 20 Rate Blood Pressure 116/78 [Right] O2 Sat by Pulse 94 99 Oximetry O2 Sat by Pulse 90 Oximetry [ Digit-Finger] 04/10/22 19:03 Temperature 101.5 F H Pulse Rate Respiratory Rate Blood Pressure [Right] O2 Sat by Pulse Oximetry O2 Sat by Pulse Oximetry [ Digit-Finger] - Reevaluation(s) Reevaluation #1: 04/10/22 17:45 Differential diagnosis, include but not limited to: Congestive heart failure exacerbation, C. difficile, pneumonia, UTI, viral syndrome, COVID-19, acute hypoxic respiratory failure Assessment and plan: 46-year-old gentleman, ruling in for sepsis/systemic inflammatory response syndrome, also demonstrating evidence of congestive heart failure exacerbation, manifested by hypoxia, JVD, lower extremity edema. Place patient on isolation. Obtain appropriate laboratory studies. Hold 30 cc/kg bolus of IV fluid given obvious evidence of fluid overload. Start Decadron, request stool studies. Treat symptoms supportively and symptomatically. Recommend admission to the medical service for the aforementioned. Patient agreeable to the plan of care. Currently awaiting laboratory studies. 04/10/22 19:21 Patient is found to have a leukocytosis of 19,000, with probable hypervolemic hyponatremia. He is also found to have worsening elevation of total bilirubin, likely secondary to congestive hepatopathy. He has a chronically elevated proBNP, and may have evidence of early cardiorenal syndrome. Lactic acidosis reviewed and appreciated. He is grossly fluid overloaded. Additional fluids contraindicated. Suspect viral syndrome/COVID. However, we will cover with ceftriaxone, azithromycin. He will also be given Lasix. Hospital physician, Dr. Marky Johnson to admit to IMS Currently awaiting stool studies. Patient is awake and protecting his airway at this time - Pulse Oximetry Interpretation Digit-Finger Initial Pulse Oximetry Readin O2 Sat by Pulse Oximetry: 90 Actions Taken: other (Ordered 2 L oxygen nasal cannula) ED Medical Decision Making - Lab Data Result diagrams: 04/10/22 18:14 04/10/22 18:14 Vital Signs 04/10/22 14:06 Temperature 103 F H Pulse Rate 117 H Respiratory 18 Rate Blood Pressure 116/78 [Right] O2 Sat by Pulse 94 Oximetry - EKG Data -: EKG Interpreted by Al Rate: tachycardia - EKG Data Interpretation: unchanged when compared t 04/10/22 17:44 The EKG is interpreted at 17: 40 This is a ventricular paced rhythm, with a V rate 115 bpm. There is good captu re, and in extreme rightward axis deviation. There is no endorsement of chest pain. This is an abnormal EKG. This is not a STEMI. This appears to be unchanged from prior EKG from April 01, 2022. - Radiology Data Radiology results: pending, report reviewed, image reviewed CHEST 1 VIEW 04/10/2022 4:21 PM INDICATION / CLINICAL INFORMATION: Chest Pain. COMPARISON: 04/01/2022 FINDINGS: SUPPORT DEVICES: Unchanged. HEART / MEDIASTINUM: Redemonstrated cardiomegaly. LUNGS / PLEURA: No significant pulmonary or pleural abnormality. No pneumothorax. ADDITIONAL FINDINGS: No significant additional findings. IMPRESSION: 1. No acute findings. Signer Name: Bret LariosDO Signed: 04/10/2022 4:24 PM Workstation Name: [id number] Critical Care Time: Yes Critical care time in (mins) excluding proc time.: 35 Critical care attestation.: If time is entered above; I have spent that time in minutes in the direct care of this critically ill patient, excluding procedure time. ED Disposition Clinical Impression: Acute respiratory failure with hypoxia, Systemic inflammatory response syndrome (SIRS), Suspected COVID-19 virus infection, COVID-19 vaccination not done, Acute CHF (congestive heart failure), Elevated bilirubin Disposition: 09 ADMITTED INPATIENT Is pt being admited?: Yes Does the pt Need Aspirin: No Condition: Fair
[2022-04-10 18:31] LABS: Hematocrit 41.4 % (35.5-45.6); Hemoglobin 14.2 gm/dl (11.8-15.2); Mean Corpuscular HGB Conc 34 % (32-34); Mean Corpuscular Volume 85 fl (84-94); Platelet Count 207 K/mm3 (140-440); Red Blood Count 4.87 M/mm3 (3.65-5.03); Red Cell Distribution Width 16.7 % (13.2-15.2)
[2022-04-10 18:47] LABS: INR 1.51 (0.87-1.13)
[2022-04-10 18:48] LABS: Albumin 3.8 g/dL (3.9-5); Calcium 8.8 mg/dL (8.4-10.2)
[2022-04-10] MEDS ORDERED: FUROSEMIDE 40 MG/4 ML INJ IV ONE (19:19)
[2022-04-10] MEDS ORDERED: cefTRIAXone/NS 1 GM/50 ML 1 GM/50 ML BAG IV ONE (19:19)
[2022-04-10] MEDS ORDERED: AZITHROMYCIN/NS 500 MG/250 ML 500 MG/250 ML BAG IV ONE (19:19)
--- NOTE | 2022-04-10 20:26 | History and Physical Report ---
History of Present Illness Date of examination: 04/10/22 Date of admission: 04/10/2022 Chief complaint: Fever and chills for 2 days History of present illness: 46-year-old gentleman with a history of nonischemic cardiomyopathy, ejection fraction of 10 to 15%, hypokalemia, ascites, chronic jaundice, hypertension, pacemaker in situ, tricuspid/mitral valve replacement presents to the ER with fever chills nausea vomiting malaise and fatigue. Patient did not take COVID-19 vaccination. No recent antibiotic use. Shortness of breath minimal exertion present but it is chronic. Patient has class IV NYHA symptoms. Initial temperature in the ER was 103. Unvaccinated with COVID-vaccine - Past Medical History --Hypertension: Yes --Congestive Heart Failure: Yes --Liver Disease: Yes - Surgical History --Open Heart Surgery: Yes --Pacemaker: Yes --Internal Defibrillator: Yes --Additional Surgical History: AICD, mitral valve replacement with tissue prosthesis 2016, tricuspid valve repair 11/26 done at 19. Paroxysmal atrial ----fibrillation - Social History --Smoking Status: Former Smoker --Substance Use Type: None - Medications Home Medications: Home Medications Medication Instructions Recorded Confirmed Last Taken Type Apixaban [Eliquis] 5 mg PO BID 30 Days #60 tab 04/06/22 Unknown Rx AtorvaSTATin 10 mg PO QHS 30 Days #30 tab 04/06/22 Unknown Rx Furosemide [Lasix TAB] 80 mg PO BID 30 Days #60 tab 04/06/22 Unknown Rx Sacubitril/Valsartan [Entresto 24 1 each PO BID 30 Days #60 tablet 04/06/22 Unknown Rx - 26 mg] carvediloL [Coreg] 25 mg PO BID 30 Days #60 tablet 04/06/22 Unknown Rx Spironolactone [Aldactone] 25 mg PO QDAY #30 tablet 04/07/22 Unknown Rx Review of Systems ROS: Stated complaint: CHEST PAIN/HEART PROBLEMS Other details as noted in HPI Constitutional: chills, fever, malaise, weakness Eyes: denies: eye discharge ENT: congestion Respiratory: shortness of breath Cardiovascular: edema. denies: chest pain Gastrointestinal: nausea, vomiting, diarrhea. denies: abdominal pain Musculoskeletal: back pain, arthralgia, myalgia Neurological: weakness Medications and Allergies Allergies Allergy/AdvReac Type Severity Reaction Status Date / Time No Known Allergies Allergy Verified 04/10/22 14:10 Home Medications Medication Instructions Recorded Confirmed Last Taken Type Apixaban [Eliquis] 5 mg PO BID 30 Days #60 tab 04/06/22 Unknown Rx AtorvaSTATin 10 mg PO QHS 30 Days #30 tab 04/06/22 Unknown Rx Furosemide [Lasix TAB] 80 mg PO BID 30 Days #60 tab 04/06/22 Unknown Rx Sacubitril/Valsartan [Entresto 24 1 each PO BID 30 Days #60 tablet 04/06/22 Unknown Rx - 26 mg] carvediloL [Coreg] 25 mg PO BID 30 Days #60 tablet 04/06/22 Unknown Rx Spironolactone [Aldactone] 25 mg PO QDAY #30 tablet 04/07/22 Unknown Rx Exam - Constitutional Vitals: Temp Pulse Resp BP Pulse Ox 101.5 F H 117 H 20 116/78 90 04/10/22 19:03 04/10/22 14:06 04/10/22 17:36 04/10/22 14:06 04/10/22 19:22 General appearance: Present: no acute distress, well-nourished - EENT Eyes: Present: PERRL ENT: hearing intact, clear oral mucosa - Neck Neck: Present: supple, normal ROM - Respiratory Respiratory effort: normal Respiratory: bilateral: CTA, rhonchi (Catheter) - Cardiovascular Heart rate: 115 Rhythm: regular Heart Sounds: Present: S1 & S2. Absent: rub, click - Extremities Extremities: pulses symmetrical, No edema Peripheral Pulses: within normal limits - Abdominal General gastrointestinal: Present: soft, non-tender, non-distended, normal bowel sounds Male genitourinary: Present: normal - Integumentary Integumentary: Present: clear, warm, dry - Musculoskeletal Musculoskeletal: gait normal, strength equal bilaterally - Psychiatric Psychiatric: appropriate mood/affect, intact judgment & insight - Neurologic Neurologic: CNII-XII intact, moves all extremities HEART Score - HEART Score Troponin: Troponin T 0.017 ng/mL (0.00-0.029) 04/10/22 18:14 Results - Labs CBC & Chem 7: 04/11/22 06:12 04/10/22 21:28 Labs: Laboratory Last Values WBC 19.5 K/mm3 (4.5-11.0) H 04/10/22 18:14 RBC 4.87 M/mm3 (3.65-5.03) 04/10/22 18:14 Hgb 14.2 gm/dl (11.8-15.2) 04/10/22 18:14 Hct 41.4 % (35.5-45.6) 04/10/22 18:14 MCV 85 fl (84-94) 04/10/22 18:14 MCH 29 pg (28-32) 04/10/22 18:14 MCHC 34 % (32-34) 04/10/22 18:14 RDW 16.7 % (13.2-15.2) H 04/10/22 18:14 Plt Count 207 K/mm3 (140-440) 04/10/22 18:14 Seg Neutrophils % Economic Forecaster 04/10/22 18:14 PT 20.5 Sec. (12.2-14.9) H 04/10/22 18:14 INR 1.51 (0.87-1.13) H 04/10/22 18:14 Sodium 128 mmol/L (137-145) L D 04/10/22 18:14 Potassium 4.3 mmol/L (3.6-5.0) 04/10/22 18:14 Chloride 92.5 mmol/L (98-107) L 04/10/22 18:14 Carbon Dioxide 20 mmol/L (22-30) L D 04/10/22 18:14 Anion Gap 20 mmol/L 04/10/22 18:14 BUN 28 mg/dL (9-20) H 04/10/22 18:14 Creatinine 1.6 mg/dL (0.8-1.3) H 04/10/22 18:14 Estimated GFR 57 ml/min 04/10/22 18:14 BUN/Creatinine Ratio 18 % 04/10/22 18:14 Glucose 103 mg/dL (75-100) H 04/10/22 18:14 Lactic Acid 2.70 mmol/L (0.7-2.0) H* 04/10/22 18:14 Calcium 8.8 mg/dL (8.4-10.2) 04/10/22 18:14 Magnesium 1.70 mg/dL (1.7-2.3) 04/10/22 18:14 Total Bilirubin 22.90 mg/dL (0.1-1.2) H 04/10/22 18:14 AST 35 units/L (5-40) 04/10/22 18:14 ALT 26 units/L (7-56) 04/10/22 18:14 Alkaline Phosphatase 140 units/L (35-129) H 04/10/22 18:14 Total Creatine Kinase 268 units/L (55-170) H 04/10/22 18:14 Troponin T 0.017 ng/mL (0.00-0.029) 04/10/22 18:14 NT-Pro-B Natriuret Pep > 46211 pg/mL (0-450) H 04/10/22 18:14 Total Protein 6.0 g/dL (6.3-8.2) L 04/10/22 18:14 Albumin 3.8 g/dL (3.9-5) L 04/10/22 18:14 Albumin/Globulin Ratio 1.7 % 04/10/22 18:14 Lipase 19 units/L (13-60) 04/10/22 18:14 Short CBC 04/10/22 Range/Units 18:14 WBC 19.5 H (4.5-11.0) K/mm3 Hgb 14.2 (11.8-15.2) gm/dl Hct 41.4 (35.5-45.6) % Plt Count 207 (140-440) K/mm3 BMP 04/10/22 18:14 Sodium 128 L D Potassium 4.3 Chloride 92.5 L Carbon Dioxide 20 L D BUN 28 H Creatinine 1.6 H Glucose 103 H Calcium 8.8 Cardiac Enzymes 04/10/22 04/10/22 Range/Units 18:14 18:14 Total Creatine Kinase 268 H (55-170) units/L Troponin T 0.017 (0.00-0.029) ng/mL Liver Function 04/10/22 Range/Units 18:14 Total Bilirubin 22.90 H (0.1-1.2) mg/dL AST 35 (5-40) units/L ALT 26 (7-56) units/L Alkaline Phosphatase 140 H (35-129) units/L Albumin 3.8 L (3.9-5) g/dL Short CBC 04/10/22 04/11/22 Range/Units 18:14 06:12 WBC 19.5 H 30.8 H (4.5-11.0) K/mm3 Hgb 14.2 15.1 (11.8-15.2) gm/dl Hct 41.4 45.3 (35.5-45.6) % Plt Count 207 181 (140-440) K/mm3 BMP 04/10/22 04/10/22 04/11/22 18:14 21:28 06:12 Sodium 128 L D 129 L Potassium 4.3 4.5 Chloride 92.5 L 92.7 L Carbon Dioxide 20 L D BUN 28 H Creatinine 1.6 H Glucose 103 H 100 Calcium 8.8 Cardiac Enzymes 04/10/22 04/10/22 Range/Units 18:14 18:14 Total Creatine Kinase 268 H (55-170) units/L Troponin T 0.017 (0.00-0.029) ng/mL Liver Function 04/10/22 Range/Units 18:14 Total Bilirubin 22.90 H (0.1-1.2) mg/dL AST 35 (5-40) units/L ALT 26 (7-56) units/L Alkaline Phosphatase 140 H (35-129) units/L Albumin 3.8 L (3.9-5) g/dL - Imaging and Cardiology EKG: report reviewed (Ventricular paced rhythm, biventricular paced rhythm heart rate of 115/min) Chest x-ray: report reviewed (No acute findings) Assessment and Plan Advance Directives: Yes (Full code) VTE prophylaxis?: Chemical Plan of care discussed with patient/family: Yes - Patient Problems (1) Acute respiratory failure with hypoxia Current Visit: Yes Status: Acute Plan to address problem: Oxygen supplementation as necessary. Patient was hypoxic at the time of admission Patient also had a high fever of 103. (2) Sepsis Current Visit: Yes Status: Acute Qualifiers: Sepsis type: sepsis due to unspecified organism Plan to address problem: Patient meets criteria for sepsis Patient has high white count, high CRP, and a high lactic acid level. Also high fever of 103. Not hypotensive. (3) Person under investigation for COVID-19 Current Visit: Yes Status: Acute Plan to address problem: COVID virus infection to be ruled out Patient initiated on IV Decadron All inflammatory markers are high including D-dimer and CRP ID consult requested (4) Acute on chronic HFrEF (heart failure with reduced ejection fraction) Current Visit: Yes Status: Acute Plan to address problem: IV Lasix Ejection fraction of 15 to 20% (5) Hypertension Current Visit: Yes Status: Chronic Qualifiers: Hypertension type: primary hypertension Qualified Code(s): I10 - Essential (primary) hypertension Plan to address problem: Continue antihypertensives (6) Hyperbilirubinemia Current Visit: Yes Status: Chronic Plan to address problem: Patient has elevated bilirubin level for the past many years Work-up was done Patient may have Gilbert or Crigler Miri syndrome Previous GI notes indicated congestive hepatitis No further work-up for the high bilirubin levels AST ALT are normal (7) Hyperlipidemia Current Visit: Yes Status: Chronic Qualifiers: Hyperlipidemia type: mixed hyperlipidemia Qualified Code(s): E78.2 - Mixed hyperlipidemia Plan to address problem: Continue statins (8) DVT prophylaxis Current Visit: No Status: Acute Plan to address problem: On anticoagulation and GI prophylaxis (9) Advance care planning Current Visit: Yes Status: Acute Plan to address problem: Disease education conducted, care plan discussed, diagnosis discussed and patient acknowledged understanding with care plan. +30 minutes. Full code.
[2022-04-10 20:32] LABS: Band Neutrophils # (Manual) 3.7 K/mm3; Basophils % (Manual) 0 % (0.0-1.8); Eosinophils % (Manual) 0 % (0.0-4.3); Total Cells Counted 100
[2022-04-10 20:37] LABS: Anisocytosis 1+; Large Platelets Few; Macrocytosis Few; Ovalocytes Few; Platelet Estimate Consistent w Auto; Target Cells Few
[2022-04-10] MEDS ORDERED: ONDANSETRON 4 MG/2 ML INJ IV PRN (21:09)
[2022-04-10] MEDS ORDERED: METOCLOPRAMIDE 10 MG/2 ML INJ IV PRN (21:09)
[2022-04-10] MEDS ORDERED: ACETAMINOPHEN 325 MG TAB PO PRN (21:09)
[2022-04-10] MEDS ORDERED: HEPARIN 5,000 UNIT/1 ML VIAL SUB-Q SCH (22:00)
[2022-04-10] MEDS ORDERED: NON-FORMULARY EACH (Apixaban 5 MG Tablet) PO SCH (22:00)
[2022-04-10 23:04] LABS: C-Reactive Protein 15.6 mg/dL (0.00-1.30)
[2022-04-10] MEDS: SACUBITRIL/VALSARTAN 24-26 MG TAB PO SCH (23:09)
[2022-04-10] MEDS: APIXABAN 5 MG TAB PO SCH (23:09)
[2022-04-10] MEDS: SPIRONOLACTONE 50 MG TAB PO SCH (23:09)
[2022-04-10] MEDS: carvediloL 25 MG TAB PO SCH (23:10)
[2022-04-11 06:29] LABS: Hematocrit 45.3 % (35.5-45.6); Hemoglobin 15.1 gm/dl (11.8-15.2); Mean Corpuscular HGB Conc 33 % (32-34); Mean Corpuscular Volume 86 fl (84-94); Platelet Count 181 K/mm3 (140-440); Red Blood Count 5.29 M/mm3 (3.65-5.03); Red Cell Distribution Width 17.2 % (13.2-15.2)
[2022-04-11 06:50] LABS: Albumin 3.2 g/dL (3.9-5); Calcium 8.9 mg/dL (8.4-10.2)
[2022-04-11 08:02] LABS: Basophils % (Manual) 0 % (0.0-1.8); Eosinophils % (Manual) 0 % (0.0-4.3); Myelocytes # (Manual) 0.3 K/mm3; Total Cells Counted 100
[2022-04-11 08:03] LABS: Anisocytosis 1+; Hypochromasia 1+; Macrocytosis Few; Ovalocytes Few; Platelet Estimate Consistent w Auto; Target Cells Few
--- NOTE | 2022-04-11 09:51 | Progress Note ---
Assessment and Plan Assessment and plan: Advance Directives: Yes (Full code) VTE prophylaxis?: Chemical Plan of care discussed with patient/family: Yes - Patient Problems --Acute respiratory failure with hypoxia/on admission Oxygen supplementation as necessary. Patient was hypoxic at the time of admission Patient also had a high fever of 103. Today patient is on room air saturating well -- Sepsis Patient meets criteria for sepsis Patient has high white count, high CRP, and a high lactic acid level. Also high fever of 103. Not hypotensive. Bacteremia, follow culture sensitivities ID consult requested --Person under investigation for COVID-19/ COVID test negative, DC isolation --Acute on chronic HFrEF (heart failure with reduced ejection fraction) Antifungal medications Ejection fraction of 15 to 20% Cardiology consult, discussed with Ms. Lorin Llanos, ZO cardiology Consulted Dr. Fuentes --Hypertension/patient's bleeding in the lower range Hold antihypertensives Closely monitor blood pressures adjust as needed --Hyperbilirubinemia[chronic] Patient has elevated bilirubin level for the past many years Work-up was done, possible liver congestion due to CHF Patient may have Gilbert or Crigler Miri syndrome Previous GI notes indicated congestive hepatitis No further work-up for the high bilirubin levels AST ALT are normal -- Hyperlipidemia Continue statins --DVT prophylaxis On anticoagulation and GI prophylaxis -Advance care planning Disease education conducted, care plan discussed, diagnosis discussed and patient acknowledged understanding with care plan. +30 minutes. Full code. Closely monitor the patient and adjust management as needed Follow end user consultant recommendations Discharge planning per case management. Plan of care reviewed with the patient, his nurse. Patient had some questions regarding the treatment, answered all of them History Interval history: I have seen and examined the patient at the bedside Patient's chart and medications reviewed 46-year-old male patient was admitted with fever nausea and vomiting COVID-19 test is negative Complains of generalized body pains Vital signs noted Hospitalist Physical - Constitutional Vitals: Temp Pulse Resp BP Pulse Ox 97.5 F L 70 20 95/64 100 04/11/22 07:58 04/11/22 07:58 04/11/22 07:58 04/11/22 07:58 04/11/22 07:58 General appearance: Present: no acute distress, well-nourished - EENT Eyes: Present: PERRL, EOM intact - Neck Neck: Present: supple, normal ROM - Respiratory Respiratory effort: normal Respiratory: bilateral: diminished, negative: rales, rhonchi, wheezing - Cardiovascular Rhythm: regular Heart Sounds: Present: S1 & S2 - Extremities Extremities: no ischemia, No edema - Abdominal General gastrointestinal: soft, non-tender, non-distended, normal bowel sounds - Integumentary Integumentary: Present: clear, warm - Psychiatric Psychiatric: appropriate mood/affect, cooperative - Neurologic Neurologic: moves all extremities HEART Score - HEART Score Troponin: Troponin T 0.017 ng/mL (0.00-0.029) 04/10/22 18:14 Results - Labs CBC & Chem 7: 04/11/22 16:37 04/11/22 16:37 Labs: Laboratory Last Values WBC 30.8 K/mm3 (4.5-11.0) H 04/11/22 06:12 RBC 5.29 M/mm3 (3.65-5.03) H 04/11/22 06:12 Hgb 15.1 gm/dl (11.8-15.2) 04/11/22 06:12 Hct 45.3 % (35.5-45.6) 04/11/22 06:12 MCV 86 fl (84-94) 04/11/22 06:12 MCH 28 pg (28-32) 04/11/22 06:12 MCHC 33 % (32-34) 04/11/22 06:12 RDW 17.2 % (13.2-15.2) H 04/11/22 06:12 Plt Count 181 K/mm3 (140-440) 04/11/22 06:12 Add Manual Diff Complete 04/11/22 06:12 Total Counted 100 04/11/22 06:12 Seg Neutrophils % Vehicle Leasing And Rental Manager 04/11/22 06:12 Seg Neuts % (Manual) 73.0 % (40.0-70.0) H 04/11/22 06:12 Band Neutrophils % 13.0 % 04/11/22 06:12 Lymphocytes % (Manual) 4.0 % (13.4-35.0) L 04/11/22 06:12 Reactive Lymphs % (Man) 0 % 04/11/22 06:12 Monocytes % (Manual) 6.0 % (0.0-7.3) 04/11/22 06:12 Eosinophils % (Manual) 0 % (0.0-4.3) 04/11/22 06:12 Basophils % (Manual) 0 % (0.0-1.8) 04/11/22 06:12 Metamyelocytes % 3.0 % 04/11/22 06:12 Myelocytes % 1.0 % 04/11/22 06:12 Promyelocytes % 0 % 04/11/22 06:12 Blast Cells % 0 % 04/11/22 06:12 Nucleated RBC % Not Reportable 04/11/22 06:12 Seg Neutrophils # Man 22.5 K/mm3 (1.8-7.7) H 04/11/22 06:12 Band Neutrophils # 4.0 K/mm3 04/11/22 06:12 Lymphocytes # (Manual) 1.2 K/mm3 (1.2-5.4) 04/11/22 06:12 Abs React Lymphs (Man) 0.0 K/mm3 04/11/22 06:12 Monocytes # (Manual) 1.8 K/mm3 (0.0-0.8) H 04/11/22 06:12 Eosinophils # (Manual) 0.0 K/mm3 (0.0-0.4) 04/11/22 06:12 Basophils # (Manual) 0.0 K/mm3 (0.0-0.1) 04/11/22 06:12 Metamyelocytes # 0.9 K/mm3 04/11/22 06:12 Myelocytes # 0.3 K/mm3 04/11/22 06:12 Promyelocytes # 0.0 K/mm3 04/11/22 06:12 Blast Cells # 0.0 K/mm3 04/11/22 06:12 WBC Morphology Not Reportable 04/11/22 06:12 Hypersegmented Neuts Not Reportable 04/11/22 06:12 Hyposegmented Neuts Not Reportable 04/11/22 06:12 Hypogranular Neuts Not Reportable 04/11/22 06:12 Smudge Cells Not Reportable 04/11/22 06:12 Toxic Granulation Not Reportable 04/11/22 06:12 Toxic Vacuolation Not Reportable 04/11/22 06:12 Dohle Bodies Not Reportable 04/11/22 06:12 Pelger-Huet Anomaly Not Reportable 04/11/22 06:12 Gray Rods Not Reportable 04/11/22 06:12 Platelet Estimate Consistent w auto 04/11/22 06:12 Clumped Platelets Not Reportable 04/11/22 06:12 Plt Clumps, EDTA Not Reportable 04/11/22 06:12 Large Platelets Not Reportable 04/11/22 06:12 Giant Platelets Not Reportable 04/11/22 06:12 Platelet Satelliting Not Reportable 04/11/22 06:12 Plt Morphology Comment Not Reportable 04/11/22 06:12 RBC Morphology Not Reportable 04/11/22 06:12 Dimorphic RBCs Not Reportable 04/11/22 06:12 Polychromasia Not Reportable 04/11/22 06:12 Hypochromasia 1+ 04/11/22 06:12 Poikilocytosis Not Reportable 04/11/22 06:12 Anisocytosis 1+ 04/11/22 06:12 Microcytosis 1+ 04/11/22 06:12 Macrocytosis Few 04/11/22 06:12 Spherocytes Not Reportable 04/11/22 06:12 Pappenheimer Bodies Not Reportable 04/11/22 06:12 Sickle Cells Not Reportable 04/11/22 06:12 Target Cells Few 04/11/22 06:12 Tear Drop Cells Not Reportable 04/11/22 06:12 Ovalocytes Few 04/11/22 06:12 Helmet Cells Not Reportable 04/11/22 06:12 Bains-Rachel Bodies Not Reportable 04/11/22 06:12 [place] Rings Not Reportable 04/11/22 06:12 [place] Cells Not Reportable 04/11/22 06:12 Bite Cells Not Reportable 04/11/22 06:12 Crenated Cell Not Reportable 04/11/22 06:12 Elliptocytes Not Reportable 04/11/22 06:12 Acanthocytes (Spur) Not Reportable 04/11/22 06:12 Rouleaux Not Reportable 04/11/22 06:12 Hemoglobin C Crystals Not Reportable 04/11/22 06:12 Schistocytes Not Reportable 04/11/22 06:12 Malaria parasites Not Reportable 04/11/22 06:12 Shubham Bodies Not Reportable 04/11/22 06:12 Hem Pathologist Commnt No 04/11/22 06:12 PT 20.5 Sec. (12.2-14.9) H 04/10/22 18:14 INR 1.51 (0.87-1.13) H 04/10/22 18:14 D-Dimer 1939.20 ng/mlDDU (0-234) H 04/10/22 21:28 Sodium 129 mmol/L (137-145) L 04/11/22 06:12 Potassium 4.5 mmol/L (3.6-5.0) 04/11/22 06:12 Chloride 92.7 mmol/L (98-107) L 04/11/22 06:12 Carbon Dioxide 21 mmol/L (22-30) L 04/11/22 06:12 Anion Gap 20 mmol/L 04/11/22 06:12 BUN 34 mg/dL (9-20) H 04/11/22 06:12 Creatinine 1.7 mg/dL (0.8-1.3) H 04/11/22 06:12 Estimated GFR 53 ml/min 04/11/22 06:12 BUN/Creatinine Ratio 20 % 04/11/22 06:12 Glucose 131 mg/dL (75-100) H 04/11/22 06:12 Lactic Acid 2.70 mmol/L (0.7-2.0) H* 04/10/22 18:14 Calcium 8.9 mg/dL (8.4-10.2) 04/11/22 06:12 Magnesium 1.70 mg/dL (1.7-2.3) 04/10/22 18:14 Ferritin 186.3 ng/mL (30.0-300.0) 04/10/22 21:28 Total Bilirubin 22.00 mg/dL (0.1-1.2) H 04/11/22 06:12 AST 40 units/L (5-40) 04/11/22 06:12 ALT 29 units/L (7-56) 04/11/22 06:12 Alkaline Phosphatase 128 units/L (35-129) 04/11/22 06:12 Lactate Dehydrogenase 310 units/L (91-180) H 04/10/22 21:28 Total Creatine Kinase 268 units/L (55-170) H 04/10/22 18:14 Troponin T 0.017 ng/mL (0.00-0.029) 04/10/22 18:14 C-Reactive Protein 15.60 mg/dL (0.00-1.30) H 04/10/22 21:28 NT-Pro-B Natriuret Pep > 57098 pg/mL (0-450) H 04/10/22 18:14 Total Protein 6.3 g/dL (6.3-8.2) 04/11/22 06:12 Albumin 3.2 g/dL (3.9-5) L 04/11/22 06:12 Albumin/Globulin Ratio 1.0 % 04/11/22 06:12 Lipase 19 units/L (13-60) 04/10/22 18:14 Microbiology: Microbiology 04/10/22 18:14 Peripheral/Venous Blood Culture - Preliminary Culture in Progress 04/10/22 18:14 Peripheral/Venous Blood Culture - Preliminary Culture in Progress Active Medications - Current Medications Current Medications: Generic Name Dose Route Start Last Admin Trade Name Freq PRN Reason Stop Dose Admin Acetaminophen 650 mg 04/10/22 21:09 Acetaminophen 325 Mg Tab PO Q4H PRN Pain MILD(1-3)/Fever >100.5/PEREZ Apixaban 5 mg 04/10/22 22:00 04/10/22 23:09 Apixaban 5 Mg Tab PO 5 mg BID SARAH Administration Atorvastatin Calcium 10 mg 04/10/22 22:00 04/10/22 23:09 Atorvastatin 10 Mg Tab PO 10 mg QHS SARAH Administration Carvedilol 25 mg 04/10/22 22:00 04/10/22 23:10 Carvedilol 25 Mg Tab PO 25 mg BID SARAH Administration Dexamethasone 8 mg 04/11/22 18:00 Dexamethasone 4 Mg/Ml Vial IV Q24H [facility] Azithromycin 500 mg in 250 mls @ 250 mls/hr 04/11/22 18:00 Zithromax/Ns IV Q24H SARAH Ceftriaxone Sodium 2 gm in 100 mls @ 200 mls/hr 04/11/22 18:00 Rocephin/Ns 2 Gm/100 Ml IV Q24H [facility] Protocol Metoclopramide HCl 10 mg 04/10/22 21:09 Metoclopramide 10 Mg/2 Ml Inj IV Q6H PRN Nausea And Vomiting Morphine Sulfate 2 mg 04/10/22 21:09 Morphine 2 Mg/1 Ml Inj IV Q4H PRN Pain, Moderate (4-6) Ondansetron HCl 4 mg 04/10/22 21:09 Ondansetron 4 Mg/2 Ml Inj IV Q3H PRN Nausea And Vomiting Sacubitril/Valsartan 1 each 04/10/22 22:00 04/10/22 23:09 Sacubitril/Valsartan 24-26 Mg Tab PO 1 each BID SARAH Administration Sodium Chloride 10 ml 04/10/22 22:00 Sodium Chloride 0.9% 10 Ml Flush Syringe IV BID SARAH Sodium Chloride 10 ml 04/10/22 21:09 Sodium Chloride 0.9% 10 Ml Flush Syringe IV PRN PRN LINE FLUSH Spironolactone 50 mg 04/10/22 22:00 04/10/22 23:09 Spironolactone 50 Mg Tab PO 50 mg QDAY SARAH Administration
[2022-04-11] MEDS: SPIRONOLACTONE 50 MG TAB PO SCH (14:01)
[2022-04-11] MEDS: carvediloL 25 MG TAB PO SCH (14:01)
[2022-04-11] MEDS: SACUBITRIL/VALSARTAN 24-26 MG TAB PO SCH (14:02)
[2022-04-11] MEDS ORDERED: VANCOMYCIN/NS 1 GM/250 ML 1 GM/250 ML BAG IV ONE (15:05)
[2022-04-11] MEDS ORDERED: MIDODRINE 10 MG TAB PO ONE (15:16)
[2022-04-11] MEDS ORDERED: DOBUTamine/D5W 500 MG/250 ML 500 MG/250 ML BAG IV SCH (16:00)
--- NOTE | 2022-04-11 16:03 | Event Note ---
Date: 04/11/22 46-year-old male patient was admitted with sepsis, fever, COVID-19 is negative On empiric antibiotics, cultures positive for gram-positive cocci this morning, Patient also has cardiomyopathy with LV ejection fraction of 10 to 15%, cardiology consulted Patient suddenly became hypotensive with blood pressures dropping to 78/51 ,Probably due to cardiogenic shock and or septic shock. Integration Architect consulted , I also discussed with chief gauger Dr. Styles and requested critical care consult. Patient will be started on dopamine drip 2.5 mics and Levophed drip per protocol and will be transferred to ICU for close observation and management . I also called and discussed with ICU charge nurse , bed control patient's charge nurse and third floor charge nurse. I discussed with ICU hospitalist Dr. Selena Nance and ICU hospitalist nurse practitioner Ms. Charisse Schmitt. Set of labs were ordered. I discussed in detail with the patient his condition, treatment plan, transfer to ICU for close observation and for the need of pressors dobutamine and Levophed. He verbalized understanding. Plan of care reviewed with the patient and the patient's nurse and ICU. Total critical care time 62 minutes The high probability of a clinically significant, sudden or life threatening deterioration of the [multi] system(s) required my full and direct attention, intervention and personal management. The aggregate critical care time was [62] minutes. [x] Data Review and interpretation [x] Patient assessment and monitoring of vital signs [x] Documentation [x] Medication orders and management Total medical care time spent; 62 minutes
[2022-04-11 16:45] LABS: Hematocrit 44.6 % (35.5-45.6); Hemoglobin 14.4 gm/dl (11.8-15.2); Mean Corpuscular HGB Conc 32 % (32-34); Mean Corpuscular Volume 87 fl (84-94); Platelet Count 194 K/mm3 (140-440); Red Blood Count 5.16 M/mm3 (3.65-5.03)
[2022-04-11] MEDS: NORepinephrine/NS 8 MG-250 ML 8 MG/250 ML INFUS..BTL IV SCH (17:18)
[2022-04-11] MEDS: APIXABAN 5 MG TAB PO SCH ×2 (17:41→21:36)
[2022-04-11 17:45] LABS: Calcium 8.3 mg/dL (8.4-10.2)
[2022-04-11] MEDS ORDERED: MIDAZOLAM 2 MG/2 ML INJ IV ONE (17:55)
[2022-04-11] MEDS ORDERED: fentaNYL 100 MCG/2 ML INJ IV ONE (17:56)
[2022-04-11] MEDS ORDERED: cefTRIAXone/NS 2 GM/100 ML 2 GM/100 ML BAG IV SCH (18:00)
[2022-04-11] MEDS ORDERED: dexAMETHasone 4 MG/ML VIAL IV SCH (18:00)
[2022-04-11] MEDS ORDERED: AZITHROMYCIN/NS 500 MG/250 ML 500 MG/250 ML BAG IV SCH (18:00)
[2022-04-11 18:01] LABS: Band Neutrophils # (Manual) 1.4 K/mm3; Basophils % (Manual) 0 % (0.0-1.8); Eosinophils % (Manual) 0 % (0.0-4.3); Total Cells Counted 100
[2022-04-11 18:03] LABS: Target Cells Few
[2022-04-11 18:05] LABS: Spherocytes Few
[2022-04-11 18:08] LABS: Giant Platelets Few
[2022-04-11 18:09] LABS: Platelet Estimate Consistent w Auto
--- NOTE | 2022-04-11 18:55 | Procedure Note ---
Date of procedure: 04/11/22 Pre-op diagnosis: HFrEF, Sepsis Post-op diagnosis: same Procedure: Statement of consent: Consent obtained from patient, Obed Cueva, see chart Triple-lumen central venous catheter was placed in right femoral vein. Sterile technique was utilized. Patient prepped and placed in supine, frog legged position. Area prepped with chlorhexidine/ full body drape utilized. Target vessel visualized with ultrasound. Using seldinger technique, a finder needle was used to puncture target vessel. Wire was threaded through the needle, skin was nicked and needle was withdrawn over wire. A dilator was passed over the wire and tract was dilated. A central venous line catheter was threaded over a wire. All three ports withdrew blood and flushed without difficulty with saline. Line sutured in place, biopatch placed and dressed with tegaderm. Pt tolerated procedure well. VS remained stable throughout procedure. (time spent placing line not included in daily critical care time) CCT: 60 mins Anesthesia: local Surgeon: SARTHAK WILKINSON Estimated blood loss: minimal Pathology: none Condition: critical Disposition: ICU
[2022-04-11] MEDS: MORPHINE 2 MG/1 ML INJ IV PRN (21:10)
[2022-04-11] MEDS: MIDODRINE 10 MG TAB PO SCH (21:36)
[2022-04-11] MEDS: oxyCODONE /ACETAMINOPHEN 5-325MG TAB PO PRN (21:43)
[2022-04-12] MEDS: NORepinephrine/NS 8 MG-250 ML 8 MG/250 ML INFUS..BTL IV SCH ×2 (02:55→11:14)
[2022-04-12 04:47] LABS: Hematocrit 43.4 % (35.5-45.6); Hemoglobin 14.1 gm/dl (11.8-15.2); Mean Corpuscular HGB Conc 33 % (32-34); Mean Corpuscular Volume 87 fl (84-94); Platelet Count 216 K/mm3 (140-440); Red Blood Count 5.01 M/mm3 (3.65-5.03); Red Cell Distribution Width 17.2 % (13.2-15.2)
[2022-04-12 05:07] LABS: Albumin 2.9 g/dL (3.9-5); Calcium 8.3 mg/dL (8.4-10.2)
[2022-04-12 05:49] LABS: Anisocytosis 1+; Basophils % (Manual) 0 % (0.0-1.8); Eosinophils % (Manual) 0 % (0.0-4.3); Platelet Estimate Consistent w Auto; Total Cells Counted 100
[2022-04-12] MEDS: MORPHINE 2 MG/1 ML INJ IV PRN ×2 (08:31→22:00)
[2022-04-12] MEDS: MIDODRINE 10 MG TAB PO SCH ×3 (08:31→15:59)
[2022-04-12] MEDS: APIXABAN 5 MG TAB PO SCH ×2 (09:42→21:53)
--- NOTE | 2022-04-12 09:44 | Consultation ---
History of Present Illness Consult date: 04/12/22 Requesting physician: MARJORIE BURROWS Consult reason: other (cardiogenic shock) History of present illness: Pt is a 46-year-old AA male with a hx of HFrEF/NICMP (EF 10-15%), PAFlutter (on Eliquis), CHB s/p PPM ([employer]), bioprosthetic MV, TV repair, and HTN who presented with complaints of generalized weakness, fever/chills, abdominal pain, N/V, and diarrhea. He had a fever of 103F at admission. Of note, pt was recently hospitalized for acutely decompensated HF and was discharged on GDMT on 04/07. Pt reports compliance with his home medical therapies and lifestyle modifications. He currently has no cardiac or respiratory complaints but does state "my breathing comes and goes." Stable on room air at time of assessment. His only complaints to me are abdominal pain, hiccups, and persistent diarrhea. He states nausea has resolved. No further vomiting since admission. Of note, he also feels as though his urine is abnormally dark. Pt is followed in our office by Dr. Jennings. He has not been seen since 2019 due to employment issues and temporarily moving to [place] but has an appointment to re-establish care on 04/29. Past History Past Medical History: atrial fib, GERD, heart failure, hypertension, liver disease Past Surgical History: Other (bioprosthetic MV, TV repair, pacemaker) Social history: smoking (former, quit this year), alcohol abuse (former) Family history: diabetes, hypertension, stroke Medications and Allergies Allergies Allergy/AdvReac Type Severity Reaction Status Date / Time No Known Allergies Allergy Verified 04/10/22 14:10 Home Medications Medication Instructions Recorded Confirmed Last Taken Type Apixaban [Eliquis] 5 mg PO BID 30 Days #60 tab 04/06/22 Unknown Rx AtorvaSTATin 10 mg PO QHS 30 Days #30 tab 04/06/22 Unknown Rx Furosemide [Lasix TAB] 80 mg PO BID 30 Days #60 tab 04/06/22 Unknown Rx Sacubitril/Valsartan [Entresto 24 1 each PO BID 30 Days #60 tablet 04/06/22 U nknown Rx - 26 mg] carvediloL [Coreg] 25 mg PO BID 30 Days #60 tablet 04/06/22 Unknown Rx Spironolactone [Aldactone] 25 mg PO QDAY #30 tablet 04/07/22 Unknown Rx Active Meds: Active Medications Acetaminophen (Acetaminophen 325 Mg Tab) 650 mg PO Q4H PRN PRN Reason: Pain MILD(1-3)/Fever >100.5/PEREZ Apixaban (Apixaban 5 Mg Tab) 5 mg PO BID [facility] Last Admin: 04/12/22 09:42 Dose: 5 mg Atorvastatin Calcium (Atorvastatin 10 Mg Tab) 10 mg PO QHS SARAH Last Admin: 04/11/22 21:36 Dose: 10 mg Dexamethasone (Dexamethasone 4 Mg/Ml Vial) 8 mg IV Q24H SARAH Last Admin: 04/11/22 18:12 Dose: 8 mg Azithromycin (Zithromax/Ns) 500 mg in 250 mls @ 250 mls/hr IV Q24H SARAH Last Admin: 04/11/22 18:11 Dose: 250 mls/hr Ceftriaxone Sodium (Rocephin/Ns 2 Gm/100 Ml) 2 gm in 100 mls @ 200 mls/hr IV Q24H SARAH; Protocol Last Admin: 04/11/22 18:11 Dose: 200 mls/hr Dobutamine HCl/Dextrose (Dobutrex Drip 500mg/D5w 250ml) 500 mg in 250 mls @ 6.634 mls/hr IV DIRECT SARAH; Protocol Last Admin: 04/11/22 16:52 Dose: 2.5 mcg/kg/min, 6.634 mls/hr NORepinephrine/NS 8 MG-250 ML (Norepinephrine/Ns 8 Mg-250 Ml (Double Conc)) 8 mg in 250 mls @ 3.75 mls/hr IV TITRATE SARAH; Protocol Last Admin: 04/12/22 02:55 Dose: 14 mcg/min, 26.25 mls/hr Metoclopramide HCl (Metoclopramide 10 Mg/2 Ml Inj) 10 mg IV Q6H PRN PRN Reason: Nausea And Vomiting Midodrine (Midodrine 10 Mg Tab) 10 mg PO TID@0800,1200,1600 [facility] Last Admin: 04/12/22 08:31 Dose: 10 mg Morphine Sulfate (Morphine 2 Mg/1 Ml Inj) 2 mg IV Q4H PRN PRN Reason: Pain, Moderate (4-6) Last Admin: 04/12/22 08:31 Dose: 2 mg Ondansetron HCl (Ondansetron 4 Mg/2 Ml Inj) 4 mg IV Q3H PRN PRN Reason: Nausea And Vomiting Oxycodone/Acetaminophen (Oxycodone /Acetaminophen 5-325mg Tab) 1 tab PO Q4H PRN PRN Reason: Pain, Moderate (4-6) Last Admin: 04/11/22 21:43 Dose: 1 tab Sodium Chloride (Sodium Chloride 0.9% 10 Ml Flush Syringe) 10 ml IV BID SARAH Last Admin: 04/11/22 15:22 Dose: 10 ml Sodium Chloride (Sodium Chloride 0.9% 10 Ml Flush Syringe) 10 ml IV PRN PRN PRN Reason: LINE FLUSH Review of Systems Constitutional: fever, weakness Ears, nose, mouth and throat: no nasal congestion, no sore throat Cardiovascular: shortness of breath, no chest pain, no palpitations, no edema, no syncope, no lightheadedness Respiratory: shortness of breath, no cough Gastrointestinal: abdominal pain, nausea, vomiting, diarrhea, no constipation Genitourinary Male: no dysuria Musculoskeletal: no myalgias Integumentary: no rash, no wounds Neurological: other (chronic back pain), no paralysis, no numbness, no tingling, no seizures, no syncope, no vertigo Endocrine: no polydipsia, no polyuria Hematologic/Lymphatic: no easy bruising, no easy bleeding Allergic/Immunologic: no anaphylaxis Physical Examination Vital Signs Temp Pulse Resp BP Pulse Ox 103 F H 117 H 18 116/78 94 04/10/22 14:06 04/10/22 14:06 04/10/22 14:06 04/10/22 14:06 04/10/22 14:06 General appearance: no acute distress HEENT: Positive: EOMI, Jaundice, Normocephaly Neck: Positive: neck supple, trachea midline. Negative: JVD/HJR Cardiac: Positive: Reg Rate and Rhythm, S1/S2 Lungs: Positive: Decreased Breath Sounds Neuro: Positive: Grossly Intact Abdomen: Positive: Tender, Distended Skin: Negative: Rash Musculoskeletal: No Pain Extremities: Present: upper extr. pulses, edema (trace BLE), warm Results 04/12/22 04:09 04/12/22 04:09 Cardiac Enzymes 04/12/22 Range/Units 04:09 AST 33 (5-40) units/L CBC 04/11/22 04/12/22 Range/Units 16:37 04:09 WBC 28.1 H 24.2 H (4.5-11.0) K/mm3 RBC 5.16 H 5.01 (3.65-5.03) M/mm3 Hgb 14.4 14.1 (11.8-15.2) gm/dl Hct 44.6 43.4 (35.5-45.6) % Plt Count 194 216 (140-440) K/mm3 Comprehensive Metabolic Panel 04/11/22 04/12/22 Range/Units 16:37 04:09 Sodium 130 L 130 L (137-145) mmol/L Potassium 4.4 4.5 (3.6-5.0) mmol/L Chloride 94.3 L 94.6 L (98-107) mmol/L Carbon Dioxide 23 22 (22-30) mmol/L BUN 44 H 49 H (9-20) mg/dL Creatinine 1.7 H 1.6 H (0.8-1.3) mg/dL Glucose 199 H 265 H (75-100) mg/dL Calcium 8.3 L 8.3 L (8.4-10.2) mg/dL AST 33 (5-40) units/L ALT 29 (7-56) units/L Alkaline Phosphatase 127 (35-129) units/L Total Protein 5.7 L (6.3-8.2) g/dL Albumin 2.9 L (3.9-5) g/dL - Imaging and Cardiology Echo: report reviewed EKG: report reviewed, image reviewed - EKG Interpretation EKG: no acute changes EKG interpretations - Telemetry EKG Rhythm: Paced Pacemaker: ventricular pacing w/capt Assessment and Plan Assessment: Abd Pain / Diarrhea Sepsis Shock (septic +/- cardiogenic) HFrEF / NICMP (EF 10-15%, declined AICD in 2018 d/t lack of employment/insurance) KAYLIN Hyponatremia PAFlutter (on Eliquis 5mg BID) S/p DENVER Occlusion (11/2016) H/o Severe MR s/p Bioprosthetic MV (11/2016) S/p TV Repair/Ring Annuloplasty (11/2016) H/o CHB s/p PPM ([employer]) H/o HTN Liver Disease/Chronic Jaundice H/o EtOH Abuse H/o Tobacco Abuse Echo 04/01/2022: EF 10 to 15%. Left ventricle is mildly dilated. Severe global hypokinesis of left ventricle. Left ventricular end-diastolic pressure is elevated. Right ventricle is dilated. Right ventricle is hypokinetic. Device lead is present in right ventricle. Left atrium is mildly dilated. Right atrium is dilated. Bioprosthetic mitral valve is present. Mild to moderate tricuspid regurgitation. RVSP 41mmHg. Echo 05/2018: EF 15-20%, LA and RA dilated, RV dilated and hypokinetic, pacemaker electrode in right sided chambers, bioprosthetic valve in mitral position functioning normally, mod AR, no , mod TR, pulm HTN RVSP 65mmHg. Lexiscan MPI stress test 10/2018: Negative for ischemia, EF 15%. Plan: F/u blood cx 04/10 -> [facility]. Will repeat echo to assess valves. S/p inotrope trial overnight with dobutamine gtt. Stopping today per Manager Front. Can restart dobutamine if any concern for decompensated HF and unable to otherwise diurese. GDMT for HF on hold in the setting of shock. D-dimer noted to be elevated. BLE Dopplers neg for DVT. Will defer to Primary regarding confirmatory testing for PE. Pt reports compliance with OAC as an outpatient. COVID-19 neg x 1. Pt seen in conjunction with Dr. Fuentes, who agrees with the assessment and plan of care. - Patient Problems (1) Sepsis Current Visit: Yes Status: Acute Qualifiers: Severe sepsis shock status: with septic shock (2) Shock Current Visit: Yes Status: Acute (3) HFrEF (heart failure with reduced ejection fraction) Current Visit: Yes Status: Chronic (4) Nonischemic cardiomyopathy Current Visit: Yes Status: Chronic (5) Paroxysmal atrial flutter Current Visit: Yes Status: Chronic (6) Cardiac pacemaker in situ Current Visit: Yes Status: Chronic (7) History of mitral valve replacement with bioprosthetic valve Current Visit: Yes Status: Chronic (8) History of tricuspid valve annuloplasty Current Visit: Yes Status: Chronic
--- NOTE | 2022-04-12 12:16 | Consultation ---
History of Present Illness - Reason for Consult Consult date: 04/12/22 sepsis, hypotension - History of Present Illness 46 y/o male with known nonischemic cardiomyopathy, liver disease, renal disease admitted to the ICU secondary to sepsis and requiring vasopressor therapy. Past History Past Medical History: atrial fib, GERD, heart failure, hypertension, liver disease, renal failure Past Surgical History: Other (bioprosthetic MV, TV repair, pacemaker) Social history: smoking (former, quit this year), alcohol abuse (former) Family history: diabetes, hypertension, stroke Medications and Allergies Allergies Allergy/AdvReac Type Severity Reaction Status Date / Time No Known Allergies Allergy Verified 04/10/22 14:10 Home Medications Medication Instructions Recorded Confirmed Last Taken Type Apixaban [Eliquis] 5 mg PO BID 30 Days #60 tab 04/06/22 Unknown Rx AtorvaSTATin 10 mg PO QHS 30 Days #30 tab 04/06/22 Unknown Rx Furosemide [Lasix TAB] 80 mg PO BID 30 Days #60 tab 04/06/22 Unknown Rx Sacubitril/Valsartan [Entresto 24 1 each PO BID 30 Days #60 tablet 04/06/22 Unknown Rx - 26 mg] carvediloL [Coreg] 25 mg PO BID 30 Days #60 tablet 04/06/22 Unknown Rx Spironolactone [Aldactone] 25 mg PO QDAY #30 tablet 04/07/22 Unknown Rx Active Meds: Active Medications Acetaminophen (Acetaminophen 325 Mg Tab) 650 mg PO Q4H PRN PRN Reason: Pain MILD(1-3)/Fever >100.5/PEREZ Apixaban (Apixaban 5 Mg Tab) 5 mg PO BID [facility] Last Admin: 04/12/22 09:42 Dose: 5 mg Atorvastatin Calcium (Atorvastatin 10 Mg Tab) 10 mg PO QHS SARAH Last Admin: 04/11/22 21:36 Dose: 10 mg Azithromycin (Zithromax/Ns) 500 mg in 250 mls @ 250 mls/hr IV Q24H SARAH Last Admin: 04/11/22 18:11 Dose: 250 mls/hr Ceftriaxone Sodium (Rocephin/Ns 2 Gm/100 Ml) 2 gm in 100 mls @ 200 mls/hr IV Q24H SARAH; Protocol Last Admin: 04/11/22 18:11 Dose: 200 mls/hr NORepinephrine/NS 8 MG-250 ML (Norepinephrine/Ns 8 Mg-250 Ml (Double Conc)) 8 mg in 250 mls @ 3.75 mls/hr IV TITRATE [facility]; Protocol Last Titration: 04/12/22 12:03 Dose: 8 mcg/min, 15 mls/hr Metoclopramide HCl (Metoclopramide 10 Mg/2 Ml Inj) 10 mg IV Q6H PRN PRN Reason: Nausea And Vomiting Midodrine (Midodrine 10 Mg Tab) 10 mg PO TID@0800,1200,1600 [facility] Last Admin: 04/12/22 12:01 Dose: 10 mg Morphine Sulfate (Morphine 2 Mg/1 Ml Inj) 2 mg IV Q4H PRN PRN Reason: Pain, Moderate (4-6) Last Admin: 04/12/22 08:31 Dose: 2 mg Ondansetron HCl (Ondansetron 4 Mg/2 Ml Inj) 4 mg IV Q3H PRN PRN Reason: Nausea And Vomiting Oxycodone/Acetaminophen (Oxycodone /Acetaminophen 5-325mg Tab) 1 tab PO Q4H PRN PRN Reason: Pain, Moderate (4-6) Last Admin: 04/11/22 21:43 Dose: 1 tab Sodium Chloride (Sodium Chloride 0.9% 10 Ml Flush Syringe) 10 ml IV BID [facility] Last Admin: 04/11/22 15:22 Dose: 10 ml Sodium Chloride (Sodium Chloride 0.9% 10 Ml Flush Syringe) 10 ml IV PRN PRN PRN Reason: LINE FLUSH Review of Systems All systems: negative Exam - Constitutional Vitals: Temp Pulse Resp BP Pulse Ox 97.4 F L 78 14 105/67 92 04/12/22 11:48 04/12/22 11:30 04/12/22 11:30 04/12/22 11:30 04/12/22 11:30 General appearance: Present: no acute distress, well-nourished, obese - EENT Eyes: Present: PERRL, EOM intact ENT: hearing intact, clear oral mucosa - Neck Neck: Present: supple, normal ROM - Respiratory Respiratory effort: normal Respiratory: bilateral: CTA - Cardiovascular Rhythm: regular Results - Labs CBC & Chem 7: 04/12/22 04:09 04/12/22 04:09 Labs: Abnormal lab results 04/11/22 04/11/22 04/12/22 Range/Units 16:37 16:37 04:09 WBC 28.1 H 24.2 H (4.5-11.0) K/mm3 RBC 5.16 H (3.65-5.03) M/mm3 RDW 17.0 H 17.2 H (13.2-15.2) % Seg Neuts % (Manual) 87.0 H 95.0 H (40.0-70.0) % Lymphocytes % (Manual) 5.0 L 1.0 L (13.4-35.0) % Seg Neutrophils # Man 24.4 H 23.0 H (1.8-7.7) K/mm3 Lymphocytes # (Manual) 0.2 L (1.2-5.4) K/mm3 Monocytes # (Manual) 1.0 H (0.0-0.8) K/mm3 Sodium 130 L (137-145) mmol/L Chloride 94.3 L (98-107) mmol/L BUN 44 H (9-20) mg/dL Creatinine 1.7 H (0.8-1.3) mg/dL Glucose 199 H (75-100) mg/dL Calcium 8.3 L (8.4-10.2) mg/dL Total Bilirubin (0.1-1.2) mg/dL Total Protein (6.3-8.2) g/dL Albumin (3.9-5) g/dL 04/12/22 Range/Units 04:09 WBC (4.5-11.0) K/mm3 RBC (3.65-5.03) M/mm3 RDW (13.2-15.2) % Seg Neuts % (Manual) (40.0-70.0) % Lymphocytes % (Manual) (13.4-35.0) % Seg Neutrophils # Man (1.8-7.7) K/mm3 Lymphocytes # (Manual) (1.2-5.4) K/mm3 Monocytes # (Manual) (0.0-0.8) K/mm3 Sodium 130 L (137-145) mmol/L Chloride 94.6 L (98-107) mmol/L BUN 49 H (9-20) mg/dL Creatinine 1.6 H (0.8-1.3) mg/dL Glucose 265 H (75-100) mg/dL Calcium 8.3 L (8.4-10.2) mg/dL Total Bilirubin 17.50 H (0.1-1.2) mg/dL Total Protein 5.7 L (6.3-8.2) g/dL Albumin 2.9 L (3.9-5) g/dL - Imaging and Cardiology Chest x-ray: image reviewed Assessment and Plan 46 y/o male with sepsis, bacteremia 1. Infectious work up: repeat echo, may need PRATIMA. Exam oral cavity as well 2. Tried dobutamine to see if there was a component of cardiogenic shock but still required pressors, so will stop. 3. Follow up cardiology recs 4. Follow up renal recs 5. may need repeat ultrasound of abdomen, had one on last admit, but given worsening state, may need to repeat 6. Guarded prognosis. CCT 31 minutes.
--- NOTE | 2022-04-12 13:53 | Progress Note ---
<MINHSARTHAK EmanuelSrini - Last Filed: 04/12/22 13:51> Assessment and Plan Assessment and plan: This is a 46-year-old male with HTN, GERD, HFrEF, ascites, chronic jaundice admitted with sepsis Neuro: NAD -Reorientation as needed -Maintain sleep-wake cycle -As needed analgesia Cardiac: h/o HFrEF/NICMP (EF 10-15%), AFlutter (on Eliquis), CHB s/p PPM, bioprosthetic MV & TV repair (2016), HTN, HLD -Cardiology consulted, appreciate recommendations -Blood pressure monitoring per protocol -s/p dobutamine -Vasopressor support with levophed -MAP goal greater than 65 -Midodrine 3 times daily -Echocardiogram pending -Per cardiology: -Echo 04/01/2022: EF 10 to 15%. Left ventricle is mildly dilated. Severe global hypokinesis of left ventricle. Left ventricular end-diastolic pressure is elevated. Right ventricle is dilated. Right ventricle is hypokinetic. Device lead is present in right ventricle. Left atrium is mildly dilated. Right atrium is dilated. Bioprosthetic mitral valve is present. Mild to moderate tricuspid regurgitation. RVSP 41mmHg. -Echo 05/2018: EF 15-20%, LA and RA dilated, RV dilated and hypokinetic, pacemaker electrode in right sided chambers, bioprosthetic valve in mitral pos ition functioning normally, mod AR, no , mod TR, pulm HTN RVSP 65mmHg. -Lexiscan MPI stress test 10/2018: Negative for ischemia, EF 15%. Respiratory: Acute hypoxic respiratory failure -CCM consulted, appreciate recommendations -Supplemental oxygen as needed -Pulmonary hygiene -SPO2 monitoring GI: Chronic Hyperbilirubinemia -04/01 CT abdomen/pelvis showed enlarged liver with suspected hepatic steatosis, mild nodular contour with carotid hypertrophy may reflect cirrhosis, cholelithiasis -04/01 abdominal ultrasound showed hepatomegaly with hepatic steatosis cholelithiasis with gallbladder wall thickening and gallbladder sludge -PPI -Cardiac diet -BR: Senokot S : Hyponatremia, Acute Kidney Injury -Monitor intake and output -Renally dose medications -Avoid nephrotoxic medications -Urine lytes pending -Trend BMP ID: Sepsis (POA), Gram-positive cocci bacteremia -ID consulted, appreciate recommendations -Presented with leukocytosis, fever, lactic acidosis, elevated CRP -Antibiotic therapy with Rocephin and vancomycin -COVID-19 PCR negative -f/u blood culture -Monitor WBC and temperature curve Endo: -Avoid hypoglycemia -SSI -Accu-Cheks q. xxx -Long-acting insulin, titrate as needed Heme: Eleated ddimer -BLE dopplar US (-) -Trend CBC -Transfuse hemoglobin less than 7 -SCDs to BLE while in bed The high probability of a clinically significant, sudden or life threatening deterioration of the [multi] system(s) required my full and direct attention, intervention and personal management. The aggregate critical care time was [60] minutes. This time is in addition to time spent performing reported procedures but includes the following: [x] Data Review and interpretation [x] Patient assessment and monitoring of vital signs [x] Documentation [x] Medication orders and management Disposition Plan: icu Total Time Spent with Patient (Minutes): 60 History Interval history: This is a 46-year-old male with HTN, GERD, former EtOH and nicotine abuse, cardiomyopathy with ejection fraction of 10 to 15% s/p mitral valve replacement and tricuspid valve repair in 2016, aflutter on Eliquis, chronic heart block s/p PPM, ascites, chronic jaundice who presents the emergency department with complaints of fever, chills, vomiting, malaise and fatigue for the past 2 days with shortness of breath on 04/10. In the emergency department patient had a fever of 103 F, tachycardia, leukocytosis, acute kidney injury Hospital course to date: 04/12: Remains on Levophed, dobutamine stopped by [facility], echocardiogram pending Hospitalist Physical - Constitutional Vitals: Temp Pulse Resp BP Pulse Ox 97.4 F L 78 14 105/67 92 04/12/22 11:48 04/12/22 11:30 04/12/22 11:30 04/12/22 11:30 04/12/22 11:30 General appearance: Present: no acute distress - EENT Eyes: Present: PERRL, scleral icterus ENT: hearing intact, clear oral mucosa, dentition normal - Neck Neck: Present: normal ROM - Respiratory Respiratory effort: normal Respiratory: bilateral: diminished - Cardiovascular Rhythm: regular Heart Sounds: Present: S1 & S2. Absent: systolic murmur, diastolic murmur - Extremities Extremities: no ischemia, pulses intact, pulses symmetrical, No edema, normal temperature, normal color Peripheral Pulses: within normal limits - Abdominal General gastrointestinal: soft, non-tender, distended, normal bowel sounds - Integumentary Integumentary: Present: warm, dry - Psychiatric Psychiatric: cooperative - Neurologic Neurologic: CNII-XII intact, no focal deficits, moves all extremities - Allied Health Allied health notes reviewed: nursing, RT HEART Score - HEART Score Troponin: Troponin T 0.016 ng/mL (0.00-0.029) 04/11/22 16:37 Results - Labs CBC & Chem 7: 04/12/22 04:09 04/12/22 04:09 Labs: Laboratory Last Values WBC 24.2 K/mm3 (4.5-11.0) H 04/12/22 04:09 RBC 5.01 M/mm3 (3.65-5.03) 04/12/22 04:09 Hgb 14.1 gm/dl (11.8-15.2) 04/12/22 04:09 Hct 43.4 % (35.5-45.6) 04/12/22 04:09 MCV 87 fl (84-94) 04/12/22 04:09 MCH 28 pg (28-32) 04/12/22 04:09 MCHC 33 % (32-34) 04/12/22 04:09 RDW 17.2 % (13.2-15.2) H 04/12/22 04:09 Plt Count 216 K/mm3 (140-440) 04/12/22 04:09 Add Manual Diff Complete 04/12/22 04:09 Total Counted 100 04/12/22 04:09 Seg Neutrophils % [employer] 04/12/22 04:09 Seg Neuts % (Manual) 95.0 % (40.0-70.0) H 04/12/22 04:09 Band Neutrophils % 0 % 04/12/22 04:09 Lymphocytes % (Manual) 1.0 % (13.4-35.0) L 04/12/22 04:09 Reactive Lymphs % (Man) 0 % 04/12/22 04:09 Monocytes % (Manual) 4.0 % (0.0-7.3) 04/12/22 04:09 Eosinophils % (Manual) 0 % (0.0-4.3) 04/12/22 04:09 Basophils % (Manual) 0 % (0.0-1.8) 04/12/22 04:09 Metamyelocytes % 0 % 04/12/22 04:09 Myelocytes % 0 % 04/12/22 04:09 Promyelocytes % 0 % 04/12/22 04:09 Blast Cells % 0 % 04/12/22 04:09 Nucleated RBC % Not Reportable 04/12/22 04:09 Seg Neutrophils # Man 23.0 K/mm3 (1.8-7.7) H 04/12/22 04:09 Band Neutrophils # 0.0 K/mm3 04/12/22 04:09 Lymphocytes # (Manual) 0.2 K/mm3 (1.2-5.4) L 04/12/22 04:09 Abs React Lymphs (Man) 0.0 K/mm3 04/12/22 04:09 Monocytes # (Manual) 1.0 K/mm3 (0.0-0.8) H 04/12/22 04:09 Eosinophils # (Manual) 0.0 K/mm3 (0.0-0.4) 04/12/22 04:09 Basophils # (Manual) 0.0 K/mm3 (0.0-0.1) 04/12/22 04:09 Metamyelocytes # 0.0 K/mm3 04/12/22 04:09 Myelocytes # 0.0 K/mm3 04/12/22 04:09 Promyelocytes # 0.0 K/mm3 04/12/22 04:09 Blast Cells # 0.0 K/mm3 04/12/22 04:09 WBC Morphology Not Reportable 04/12/22 04:09 Hypersegmented Neuts Not Reportable 04/12/22 04:09 Hyposegmented Neuts Not Reportable 04/12/22 04:09 Hypogranular Neuts Not Reportable 04/12/22 04:09 Smudge Cells Not Reportable 04/12/22 04:09 Toxic Granulation Not Reportable 04/12/22 04:09 Toxic Vacuolation Not Reportable 04/12/22 04:09 Dohle Bodies Not Reportable 04/12/22 04:09 Pelger-Huet Anomaly Not Reportable 04/12/22 04:09 Gray Rods Not Reportable 04/12/22 04:09 Platelet Estimate Consistent w auto 04/12/22 04:09 Clumped Platelets Not Reportable 04/12/22 04:09 Plt Clumps, EDTA Not Reportable 04/12/22 04:09 Large Platelets Not Reportable 04/12/22 04:09 Giant Platelets Not Reportable 04/12/22 04:09 Platelet Satelliting Not Reportable 04/12/22 04:09 Plt Morphology Comment Not Reportable 04/12/22 04:09 RBC Morphology Not Reportable 04/12/22 04:09 Dimorphic RBCs Not Reportable 04/12/22 04:09 Polychromasia Not Reportable 04/12/22 04:09 Hypochromasia Not Reportable 04/12/22 04:09 Poikilocytosis Not Reportable 04/12/22 04:09 Anisocytosis 1+ 04/12/22 04:09 Microcytosis Not Reportable 04/12/22 04:09 Macrocytosis Not Reportable 04/12/22 04:09 Spherocytes Not Reportable 04/12/22 04:09 Pappenheimer Bodies Not Reportable 04/12/22 04:09 Sickle Cells Not Reportable 04/12/22 04:09 Target Cells Not Reportable 04/12/22 04:09 Tear Drop Cells Not Reportable 04/12/22 04:09 Ovalocytes Not Reportable 04/12/22 04:09 Helmet Cells Not Reportable 04/12/22 04:09 [place] Bodies Not Reportable 04/12/22 04:09 [place] Rings Not Reportable 04/12/22 04:09 [place] Cells Not Reportable 04/12/22 04:09 Bite Cells Not Reportable 04/12/22 04:09 Crenated Cell Not Reportable 04/12/22 04:09 Elliptocytes Not Reportable 04/12/22 04:09 Acanthocytes (Spur) Not Reportable 04/12/22 04:09 Rouleaux Not Reportable 04/12/22 04:09 Hemoglobin C Crystals Not Reportable 04/12/22 04:09 Schistocytes Not Reportable 04/12/22 04:09 Malaria parasites Not Reportable 04/12/22 04:09 Shubham Bodies Not Reportable 04/12/22 04:09 Hem Pathologist Commnt No 04/12/22 04:09 PT 20.5 Sec. (12.2-14.9) H 04/10/22 18:14 INR 1.51 (0.87-1.13) H 04/10/22 18:14 D-Dimer 1939.20 ng/mlDDU (0-234) H 04/10/22 21:28 Sodium 130 mmol/L (137-145) L 04/12/22 04:09 Potassium 4.5 mmol/L (3.6-5.0) 04/12/22 04:09 Chloride 94.6 mmol/L (98-107) L 04/12/22 04:09 Carbon Dioxide 22 mmol/L (22-30) 04/12/22 04:09 Anion Gap 18 mmol/L 04/12/22 04:09 BUN 49 mg/dL (9-20) H 04/12/22 04:09 Creatinine 1.6 mg/dL (0.8-1.3) H 04/12/22 04:09 Estimated GFR 57 ml/min 04/12/22 04:09 BUN/Creatinine Ratio 31 % 04/12/22 04:09 Glucose 265 mg/dL (75-100) H 04/12/22 04:09 Lactic Acid 2.70 mmol/L (0.7-2.0) H* 04/10/22 18:14 Calcium 8.3 mg/dL (8.4-10.2) L 04/12/22 04:09 Magnesium 2.20 mg/dL (1.7-2.3) 04/12/22 04:09 Ferritin 186.3 ng/mL (30.0-300.0) 04/10/22 21:28 Total Bilirubin 17.50 mg/dL (0.1-1.2) H 04/12/22 04:09 AST 33 units/L (5-40) 04/12/22 04:09 ALT 29 units/L (7-56) 04/12/22 04:09 Alkaline Phosphatase 127 units/L (35-129) 04/12/22 04:09 Lactate Dehydrogenase 310 units/L (91-180) H 04/10/22 21:28 Total Creatine Kinase 268 units/L (55-170) H 04/10/22 18:14 Troponin T 0.016 ng/mL (0.00-0.029) 04/11/22 16:37 C-Reactive Protein 15.60 mg/dL (0.00-1.30) H 04/10/22 21:28 NT-Pro-B Natriuret Pep > 10182 pg/mL (0-450) H 04/10/22 18:14 Total Protein 5.7 g/dL (6.3-8.2) L 04/12/22 04:09 Albumin 2.9 g/dL (3.9-5) L 04/12/22 04:09 Albumin/Globulin Ratio 1.0 % 04/12/22 04:09 Lipase 19 units/L (13-60) 04/10/22 18:14 Procalcitonin 46.51 ng/mL (<0.15) 04/10/22 21:28 SARS-CoV-2 (PCR) Negative (Negative) 04/11/22 11:55 Microbiology: Microbiology 04/10/22 18:14 Peripheral/Venous Blood Culture - Preliminary 04/10/22 18:14 Peripheral/Venous Blood Culture - Preliminary Carvajal/IV: Voiding Method Urinal Active Medications - Current Medications Current Medications: Generic Name Dose Route Start Last Admin Trade Name Freq PRN Reason Stop Dose Admin Acetaminophen 650 mg 04/10/22 21:09 Acetaminophen 325 Mg Tab PO Q4H PRN Pain MILD(1-3)/Fever >100.5/PEREZ Apixaban 5 mg 04/10/22 22:00 04/12/22 09:42 Apixaban 5 Mg Tab PO 5 mg BID SARAH Administration Atorvastatin Calcium 10 mg 04/10/22 22:00 04/11/22 21:36 Atorvastatin 10 Mg Tab PO 10 mg QHS SARAH Administration Calcium Carbonate/Glycine 500 mg 04/12/22 14:00 Calcium Carbonate 500 Mg Tab Chew PO Q4H PRN Indigestion NORepinephrine/NS 8 MG-250 ML 8 mg in 250 mls @ 3.75 mls/hr 04/11/22 16:00 04/12/22 12:03 Norepinephrine/Ns 8 Mg-250 Ml (Double Conc) IV 8 mcg/min TITRATE SARAH 15 mls/hr Titration Protocol 2 MCG/MIN Vancomycin HCl 1,500 mg/ 530 mls @ 333.333 mls/hr 04/12/22 14:00 Sodium Chloride IV Q12H SARAH Cefepime HCl 2 gm in 100 mls @ 200 mls/hr 04/12/22 14:00 Cefepime/Ns 2 Gm/100 Ml IV Q12H SARAH Metoclopramide HCl 10 mg 04/10/22 21:09 Metoclopramide 10 Mg/2 Ml Inj IV Q6H PRN Nausea And Vomiting Midodrine 10 mg 04/11/22 16:00 04/12/22 12:01 Midodrine 10 Mg Tab PO 10 mg TID@0800,1200,1600 SARAH Administration Morphine Sulfate 2 mg 04/10/22 21:09 04/12/22 08:31 Morphine 2 Mg/1 Ml Inj IV 2 mg Q4H PRN Administration Pain, Moderate (4-6) Ondansetron HCl 4 mg 04/10/22 21:09 Ondansetron 4 Mg/2 Ml Inj IV Q3H PRN Nausea And Vomiting Oxycodone/Acetaminophen 1 tab 04/11/22 21:38 04/11/22 21:43 Oxycodone /Acetaminophen 5-325mg Tab PO 1 tab Q4H PRN Administration Pain, Moderate (4-6) Senna/Docusate Sodium 1 tab 04/12/22 22:00 Sennosides/Docusate Sodium 8.6/50 Mg Tab PO QHS SARAH Sodium Chloride 10 ml 04/10/22 22:00 04/11/22 15:22 Sodium Chloride 0.9% 10 Ml Flush Syringe IV 10 ml BID SARAH Administration Sodium Chloride 10 ml 04/10/22 21:09 Sodium Chloride 0.9% 10 Ml Flush Syringe IV PRN PRN LINE FLUSH <NNAMDI SHI - Last Filed: 04/14/22 13:09> History Interval history: I saw and evaluated the patient. Discussed with the nurse practitioner and agree with their findings and plan as documented in this note. Hospitalist Physical - Constitutional Vitals: Temp Pulse Resp BP Pulse Ox 97.9 F 132 H 18 199/108 97 04/14/22 11:53 04/14/22 11:53 04/14/22 10:45 04/14/22 11:53 04/14/22 11:53 HEART Score - HEART Score Troponin: Troponin T 0.016 ng/mL (0.00-0.029) 04/11/22 16:37 Results - Labs CBC & Chem 7: 04/14/22 00:06 04/14/22 00:06 Labs: Laboratory Last Values WBC 16.6 K/mm3 (4.5-11.0) H 04/14/22 00:06 RBC 4.58 M/mm3 (3.65-5.03) 04/14/22 00:06 Hgb 12.9 gm/dl (11.8-15.2) 04/14/22 00:06 Hct 39.3 % (35.5-45.6) 04/14/22 00:06 MCV 86 fl (84-94) 04/14/22 00:06 MCH 28 pg (28-32) 04/14/22 00:06 MCHC 33 % (32-34) 04/14/22 00:06 RDW 17.1 % (13.2-15.2) H 04/14/22 00:06 Plt Count 196 K/mm3 (140-440) 04/14/22 00:06 Lymph % (Auto) 3.6 % (13.4-35.0) L 04/14/22 00:06 [place] % (Auto) 8.6 % (0.0-7.3) H 04/14/22 00:06 Eos % (Auto) 0.1 % (0.0-4.3) 04/14/22 00:06 Baso % (Auto) 0.2 % (0.0-1.8) 04/14/22 00:06 Lymph # (Auto) 0.6 K/mm3 (1.2-5.4) L 04/14/22 00:06 [place] # (Auto) 1.4 K/mm3 (0.0-0.8) H 04/14/22 00:06 Eos # (Auto) 0.0 K/mm3 (0.0-0.4) 04/14/22 00:06 Baso # (Auto) 0.0 K/mm3 (0.0-0.1) 04/14/22 00:06 Add Manual Diff Complete 04/12/22 04:09 Total Counted 100 04/12/22 04:09 Seg Neutrophils % 87.5 % (40.0-70.0) H 04/14/22 00:06 Seg Neuts % (Manual) 95.0 % (40.0-70.0) H 04/12/22 04:09 Band Neutrophils % 0 % 04/12/22 04:09 Lymphocytes % (Manual) 1.0 % (13.4-35.0) L 04/12/22 04:09 Reactive Lymphs % (Man) 0 % 04/12/22 04:09 Monocytes % (Manual) 4.0 % (0.0-7.3) 04/12/22 04:09 Eosinophils % (Manual) 0 % (0.0-4.3) 04/12/22 04:09 Basophils % (Manual) 0 % (0.0-1.8) 04/12/22 04:09 Metamyelocytes % 0 % 04/12/22 04:09 Myelocytes % 0 % 04/12/22 04:09 Promyelocytes % 0 % 04/12/22 04:09 Blast Cells % 0 % 04/12/22 04:09 Nucleated RBC % Not Reportable 04/12/22 04:09 Seg Neutrophils # 14.6 K/mm3 (1.8-7.7) H 04/14/22 00:06 Seg Neutrophils # Man 23.0 K/mm3 (1.8-7.7) H 04/12/22 04:09 Band Neutrophils # 0.0 K/mm3 04/12/22 04:09 Lymphocytes # (Manual) 0.2 K/mm3 (1.2-5.4) L 04/12/22 04:09 Abs React Lymphs (Man) 0.0 K/mm3 04/12/22 04:09 Monocytes # (Manual) 1.0 K/mm3 (0.0-0.8) H 04/12/22 04:09 Eosinophils # (Manual) 0.0 K/mm3 (0.0-0.4) 04/12/22 04:09 Basophils # (Manual) 0.0 K/mm3 (0.0-0.1) 04/12/22 04:09 Metamyelocytes # 0.0 K/mm3 04/12/22 04:09 Myelocytes # 0.0 K/mm3 04/12/22 04:09 Promyelocytes # 0.0 K/mm3 04/12/22 04:09 Blast Cells # 0.0 K/mm3 04/12/22 04:09 WBC Morphology Not Reportable 04/12/22 04:09 Hypersegmented Neuts Not Reportable 04/12/22 04:09 Hyposegmented Neuts Not Reportable 04/12/22 04:09 Hypogranular Neuts Not Reportable 04/12/22 04:09 Smudge Cells Not Reportable 04/12/22 04:09 Toxic Granulation Not Reportable 04/12/22 04:09 Toxic Vacuolation Not Reportable 04/12/22 04:09 Dohle Bodies Not Reportable 04/12/22 04:09 Pelger-Huet Anomaly Not Reportable 04/12/22 04:09 Gray Rods Not Reportable 04/12/22 04:09 Platelet Estimate Consistent w auto 04/12/22 04:09 Clumped Platelets Not Reportable 04/12/22 04:09 Plt Clumps, EDTA Not Reportable 04/12/22 04:09 Large Platelets Not Reportable 04/12/22 04:09 Giant Platelets Not Reportable 04/12/22 04:09 Platelet Satelliting Not Reportable 04/12/22 04:09 Plt Morphology Comment Not Reportable 04/12/22 04:09 RBC Morphology Not Reportable 04/12/22 04:09 Dimorphic RBCs Not Reportable 04/12/22 04:09 Polychromasia Not Reportable 04/12/22 04:09 Hypochromasia Not Reportable 04/12/22 04:09 Poikilocytosis Not Reportable 04/12/22 04:09 Anisocytosis 1+ 04/12/22 04:09 Microcytosis Not Reportable 04/12/22 04:09 Macrocytosis Not Reportable 04/12/22 04:09 Spherocytes Not Reportable 04/12/22 04:09 Pappenheimer Bodies Not Reportable 04/12/22 04:09 Sickle Cells Not Reportable 04/12/22 04:09 Target Cells Not Reportable 04/12/22 04:09 Tear Drop Cells Not Reportable 04/12/22 04:09 Ovalocytes Not Reportable 04/12/22 04:09 Helmet Cells Not Reportable 04/12/22 04:09 [place] Bodies Not Reportable 04/12/22 04:09 [place] Rings Not Reportable 04/12/22 04:09 [place] Cells Not Reportable 04/12/22 04:09 Bite Cells Not Reportable 04/12/22 04:09 Crenated Cell Not Reportable 04/12/22 04:09 Elliptocytes Not Reportable 04/12/22 04:09 Acanthocytes (Spur) Not Reportable 04/12/22 04:09 Rouleaux Not Reportable 04/12/22 04:09 Hemoglobin C Crystals Not Reportable 04/12/22 04:09 Schistocytes Not Reportable 04/12/22 04:09 Malaria parasites Not Reportable 04/12/22 04:09 Shubham Bodies Not Reportable 04/12/22 04:09 Hem Pathologist Commnt No 04/12/22 04:09 PT 20.5 Sec. (12.2-14.9) H 04/10/22 18:14 INR 1.51 (0.87-1.13) H 04/10/22 18:14 D-Dimer 1939.20 ng/mlDDU (0-234) H 04/10/22 21:28 Sodium 136 mmol/L (137-145) L 04/14/22 00:06 Potassium 4.8 mmol/L (3.6-5.0) 04/14/22 00:06 Chloride 101.2 mmol/L (98-107) 04/14/22 00:06 Carbon Dioxide 21 mmol/L (22-30) L 04/14/22 00:06 Anion Gap 19 mmol/L 04/14/22 00:06 BUN 33 mg/dL (9-20) H 04/14/22 00:06 Creatinine 0.8 mg/dL (0.8-1.3) 04/14/22 00:06 Estimated GFR > 60 ml/min 04/14/22 00:06 BUN/Creatinine Ratio 41 % 04/14/22 00:06 Glucose 135 mg/dL (75-100) H 04/14/22 00:06 Lactic Acid 2.70 mmol/L (0.7-2.0) H* 04/10/22 18:14 Calcium 8.6 mg/dL (8.4-10.2) 04/14/22 00:06 Magnesium 2.20 mg/dL (1.7-2.3) 04/12/22 04:09 Ferritin 186.3 ng/mL (30.0-300.0) 04/10/22 21:28 Total Bilirubin 17.40 mg/dL (0.1-1.2) H 04/13/22 04:27 Direct Bilirubin 11.8 mg/dL (0-0.2) H 04/13/22 04:27 Indirect Bilirubin 5.6 mg/dL 04/13/22 04:27 AST 29 units/L (5-40) 04/13/22 04:27 ALT 33 units/L (7-56) 04/13/22 04:27 Alkaline Phosphatase 114 units/L (35-129) 04/13/22 04:27 Lactate Dehydrogenase 310 units/L (91-180) H 04/10/22 21:28 Total Creatine Kinase 268 units/L (55-170) H 04/10/22 18:14 Troponin T 0.016 ng/mL (0.00-0.029) 04/11/22 16:37 C-Reactive Protein 15.60 mg/dL (0.00-1.30) H 04/10/22 21:28 NT-Pro-B Natriuret Pep > 08900 pg/mL (0-450) H 04/10/22 18:14 Total Protein 6.1 g/dL (6.3-8.2) L 04/13/22 04:27 Albumin 3.0 g/dL (3.9-5) L 04/13/22 04:27 Albumin/Globulin Ratio 1.0 % 04/13/22 04:27 Lipase 19 units/L (13-60) 04/10/22 18:14 Procalcitonin 46.51 ng/mL (<0.15) 04/10/22 21:28 Urine Creatinine 75.0 mg/dL (0.1-20.0) H 04/13/22 16:00 Urine Sodium 12 mmol/L 04/13/22 16:00 Vancomycin Trough 21.3 ug/mL (5.0-20.0) H 04/13/22 13:00 SARS-CoV-2 (PCR) Negative (Negative) 04/11/22 11:55 Microbiology: Microbiology 04/14/22 06:58 Peripheral/Venous Blood Culture - Preliminary Culture in Progress 04/13/22 23:30 Peripheral/Venous Blood Culture - Preliminary Culture in Progress 04/10/22 18:14 Peripheral/Venous Blood Culture - Preliminary Staphylococcus Aureus 04/10/22 18:14 Peripheral/Venous Blood Culture - Preliminary Staphylococcus Aureus Carvajal/IV: Voiding Method Toilet Active Medications - Current Medications Current Medications: Generic Name Dose Route Start Last Admin Trade Name Freq PRN Reason Stop Dose Admin Acetaminophen 650 mg 07/15/22 21:09 Acetaminophen 325 Mg Tab PO Q4H PRN Pain MILD(1-3)/Fever >100.5/PEREZ Apixaban 5 mg 04/10/22 22:00 04/14/22 11:46 Apixaban 5 Mg Tab PO 5 mg BID SARAH Administration Atorvastatin Calcium 10 mg 04/10/22 22:00 04/13/22 21:21 Atorvastatin 10 Mg Tab PO 10 mg QHS SARAH Administration Calcium Carbonate/Glycine 500 mg 04/12/22 14:00 Calcium Carbonate 500 Mg Tab Chew PO Q4H PRN Indigestion Sodium Chloride 1,000 mls @ 150 mls/hr 04/14/22 09:00 04/14/22 08:30 Nacl 0.9% 1000 Ml IV 150 mls/hr DIRECT SARAH Administration Dobutamine HCl/Dextrose 500 mg in 250 mls @ 7.838 mls/hr 04/14/22 10:00 04/14 11:47 Dobutrex Drip 500mg/D5w 250ml IV 2.5 mcg/kg/min DIRECT SARAH 7.838 mls/hr Administration Protocol 2.5 MCG/KG/MIN Nafcillin Sodium 2 gm/ Sodium 100 mls @ 100 mls/30 min 04/14/22 13:00 Chloride IV Q4H [facility] Protocol Gentamicin Sulfate/Sodium Chloride 100 mls @ 200 mls/hr 04/14/22 12:30 Gentamicin/Ns 80 Mg/100 Ml IV Q8H SARAH Metoclopramide HCl 10 mg 04/10/22 21:09 Metoclopramide 10 Mg/2 Ml Inj IV Q6H PRN Nausea And Vomiting Midodrine 10 mg 04/11/22 16:00 04/14/22 11:46 Midodrine 10 Mg Tab PO 10 mg TID@0800,1200,1600 SARAH Administration Morphine Sulfate 2 mg 04/10/22 21:09 04/14/22 03:45 Morphine 2 Mg/1 Ml Inj IV 2 mg Q4H PRN Administration Pain, Moderate (4-6) Ondansetron HCl 4 mg 04/10/22 21:09 Ondansetron 4 Mg/2 Ml Inj IV Q3H PRN Nausea And Vomiting Oxycodone/Acetaminophen 1 tab 04/11/22 21:38 07/18/22 22:35 Oxycodone /Acetaminophen 5-325mg Tab PO 1 tab Q4H PRN Administration Pain, Moderate (4-6) Senna/Docusate Sodium 1 tab 04/12/22 22:00 04/13/22 21:21 Sennosides/Docusate Sodium 8.6/50 Mg Tab PO 1 tab QHS SARAH Administration Sodium Chloride 10 ml 04/10/22 22:00 04/14/22 11:47 Sodium Chloride 0.9% 10 Ml Flush Syringe IV 10 ml BID SARAH Administration Sodium Chloride 10 ml 04/10/22 21:09 Sodium Chloride 0.9% 10 Ml Flush Syringe IV PRN PRN LINE FLUSH
[2022-04-12] MEDS ORDERED: CALCIUM CARBONATE 500 MG TAB CHEW PO PRN (14:00)
[2022-04-12] MEDS ORDERED: VANCOMYCIN PHARMACY TO DOSE IV SCH (14:00)
[2022-04-12] MEDS ORDERED: CEFEPIME/NS 2 GM/100 ML 2 GM/100 ML BAG IV SCH (14:00)
[2022-04-12] MEDS: CEFEPIME/NS 2 GM/100 ML 2 GM/100 ML BAG IV SCH (14:58)
[2022-04-12] MEDS: VANCOMYCIN 1,500 MG in SODIUM CHLORIDE 0.9% 500 ML 500 ML IV SCH (14:58)
--- NOTE | 2022-04-12 15:13 | Electrocardiograph Report ---
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
[2022-04-12] MEDS: SENNOSIDES/DOCUSATE SODIUM 8.6/50 MG TAB PO SCH (21:53)
[2022-04-13] MEDS: VANCOMYCIN 1,500 MG in SODIUM CHLORIDE 0.9% 500 ML 500 ML IV SCH ×2 (02:55→13:17)
[2022-04-13] MEDS: CEFEPIME/NS 2 GM/100 ML 2 GM/100 ML BAG IV SCH ×2 (02:55→13:17)
[2022-04-13] MEDS: MORPHINE 2 MG/1 ML INJ IV PRN ×2 (04:36→09:02)
[2022-04-13 05:56] LABS: Alanine Aminotransferase 33 units/L (7-56); BUN/Creatinine Ratio 41; Blood Urea Nitrogen 37 mg/dL (9-20); Calcium 8.8 mg/dL (8.4-10.2); Hemolysis Index 22
[2022-04-13 06:02] LABS: Hematocrit 43.3 % (35.5-45.6); Hemoglobin 14.1 gm/dl (11.8-15.2); Mean Corpuscular HGB Conc 33 % (32-34); Mean Corpuscular Volume 86 fl (84-94); Platelet Count 216 K/mm3 (140-440); Red Blood Count 5.03 M/mm3 (3.65-5.03); Red Cell Distribution Width 17.1 % (13.2-15.2)
[2022-04-13 06:11] LABS: Bilirubin,Direct 11.8 mg/dL (0-0.2)
--- NOTE | 2022-04-13 07:59 | Progress Note ---
Assessment and Plan 46 y/o male with sepsis, bacteremia 04/13/22: Continue abx therapy. Suggest ID consult. Follow up repeat echo. Shock has improved, will transfer to telemetry floor later today. 1. Infectious work up: repeat echo, may need PRATIMA. Exam oral cavity as well 2. Tried dobutamine to see if there was a component of cardiogenic shock but s till required pressors, so will stop. 3. Follow up cardiology recs 4. Follow up renal recs 5. may need repeat ultrasound of abdomen, had one on last admit, but given worsening state, may need to repeat 6. Guarded prognosis. CCT 31 minutes. Subjective Date of service: 04/13/22 Interval history: Off vasopressors. Renal function is better. No fever. White count improving. Per patient still weak but better. About to eat breakfast. Objective - Constitutional Vitals: Vital Signs - 12hr 04/12/22 04/12/22 04/12/22 20:00 20:01 20:10 Temperature 97.9 F Pulse Rate 72 71 62 Pulse Rate [ 76 From Monitor] Respiratory 13 18 15 Rate Blood Pressure 107/80 110/71 O2 Sat by Pulse 98 93 96 Oximetry 04/12/22 04/12/22 04/12/22 20:20 20:30 20:40 Temperature Pulse Rate 63 62 62 Pulse Rate [ From Monitor] Respiratory 15 13 14 Rate Blood Pressure 118/74 112/77 102/78 O2 Sat by Pulse 96 92 93 Oximetry 04/12/22 04/12/22 04/12/22 20:50 21:00 21:10 Temperature Pulse Rate 63 62 63 Pulse Rate [ From Monitor] Respiratory 13 12 13 Rate Blood Pressure 98/73 90/64 102/68 O2 Sat by Pulse 95 93 92 Oximetry 04/12/22 04/12/22 04/12/22 21:20 21:30 21:40 Temperature Pulse Rate 63 64 65 Pulse Rate [ From Monitor] Respiratory 12 12 18 Rate Blood Pressure 97/64 99/69 112/73 O2 Sat by Pulse 88 90 92 Oximetry 04/12/22 04/12/22 04/12/22 21:50 22:00 22:01 Temperature Pulse Rate 63 63 Pulse Rate [ From Monitor] Respiratory 11 L 12 Rate Blood Pressure 116/84 127/106 O2 Sat by Pulse 96 95 83 L Oximetry 04/12/22 04/12/2204/12/22 22:10 22:20 22:30 Temperature Pulse Rate 63 61 75 Pulse Rate [ From Monitor] Respiratory 15 12 10 L Rate Blood Pressure 109/66 100/62 88/67 O2 Sat by Pulse 95 98 94 Oximetry 04/12/22 04/12/22 04/12/22 22:41 22:51 23:00 Temperature Pulse Rate 62 61 60 Pulse Rate [ From Monitor] Respiratory 13 13 14 Rate Blood Pressure 100/62 100/59 101/68 O2 Sat by Pulse 96 96 90 Oximetry 04/12/22 04/12/22 04/12/22 23:11 23:21 23:31 Temperature Pulse Rate 60 60 60 Pulse Rate [ From Monitor] Respiratory 15 12 13 Rate Blood Pressure 101/68 86/60 92/61 O2 Sat by Pulse 95 97 98 Oximetry 04/12/22 04/12/22 04/13/22 23:41 23:51 00:00 Temperature 97.8 F Pulse Rate 61 61 60 Pulse Rate [ 76 From Monitor] Respiratory 13 12 13 Rate Blood Pressure 92/61 97/67 95/58 O2 Sat by Pulse 96 96 99 Oximetry 04/13/22 04/13/22 04/13/22 00:11 00:21 00:30 Temperature Pulse Rate 62 69 62 Pulse Rate [ From Monitor] Respiratory 12 12 12 Rate Blood Pressure 95/58 99/58 89/59 O2 Sat by Pulse 95 94 89 Oximetry 04/13/22 04/13/22 04/13/22 00:41 00:51 01:00 Temperature Pulse Rate 69 67 67 Pulse Rate [ From Monitor] Respiratory 12 14 13 Rate Blood Pressure 89/59 80/57 94/48 O2 Sat by Pulse 96 96 91 Oximetry 04/13/22 04/13/22 04/13/22 01:11 01:21 01:30 Temperature Pulse Rate 67 73 70 Pulse Rate [ From Monitor] Respiratory 14 14 14 Rate Blood Pressure 94/48 91/52 96/59 O2 Sat by Pulse 95 91 94 Oximetry 04/13/22 04/13/22 04/13/22 01:41 01:51 02:00 Temperature Pulse Rate 65 63 63 Pulse Rate [ From Monitor] Respiratory 14 11 L 12 Rate Blood Pressure 96/59 102/68 102/69 O2 Sat by Pulse 95 97 95 Oximetry 04/13/22 04/13/22 04/13/22 02:11 02:21 02:30 Temperature Pulse Rate 63 62 62 Pulse Rate [ From Monitor] Respiratory 13 14 19 Rate Blood Pressure 102/69 100/61 107/65 O2 Sat by Pulse 97 94 92 Oximetry 04/13/22 04/13/22 04/13/22 02:41 02:51 03:00 Temperature Pulse Rate 80 62 61 Pulse Rate [ From Monitor] Respiratory 17 14 13 Rate Blood Pressure 107/65 103/66 105/67 O2 Sat by Pulse 96 99 97 Oximetry 04/13/22 04/13/22 04/13/22 03:11 03:21 03:31 Temperature Pulse Rate 63 65 68 Pulse Rate [ From Monitor] Respiratory 17 18 18 Rate Blood Pressure 105/67 107/65 93/66 O2 Sat by Pulse 98 99 100 Oximetry 04/13/22 04/13/22 04/13/22 03:41 03:51 04:00 Temperature 97.5 F L Pulse Rate 62 63 62 Pulse Rate [ 76 From Monitor] Respiratory 13 15 13 Rate Blood Pressure 93/66 93/66 98/72 O2 Sat by Pulse 98 98 98 Oximetry 04/13/22 04/13/22 04/13/22 04:11 04:20 04:30 Temperature Pulse Rate 63 61 60 Pulse Rate [ From Monitor] Respiratory 10 L 16 12 Rate Blood Pressure 98/72 104/67 97/58 O2 Sat by Pulse 98 99 99 Oximetry 04/13/22 04/13/22 04/13/22 04:41 04:51 05:00 Temperature Pulse Rate 61 61 66 Pulse Rate [ From Monitor] Respiratory 10 L 10 L 12 Rate Blood Pressure 97/58 97/58 103/67 O2 Sat by Pulse 91 97 93 Oximetry 04/13/22 04/13/22 04/13/22 05:11 05:20 05:30 Temperature Pulse Rate 67 62 66 Pulse Rate [ From Monitor] Respiratory 11 L 12 11 L Rate Blood Pressure 103/67 91/71 99/68 O2 Sat by Pulse 93 95 96 Oximetry 04/13/22 04/13/22 04/13/22 05:41 05:51 06:00 Temperature Pulse Rate 71 74 69 Pulse Rate [ From Monitor] Respiratory 16 12 10 L Rate Blood Pressure 99/68 91/71 96/64 O2 Sat by Pulse 87 94 90 Oximetry 04/13/22 04/13/22 04/13/22 06:11 06:21 06:30 Temperature Pulse Rate 70 64 69 Pulse Rate [ From Monitor] Respiratory 11 L 16 14 Rate Blood Pressure 96/64 94/61 101/58 O2 Sat by Pulse 93 95 95 Oximetry 04/13/22 04/13/22 04/13/22 06:41 06:51 07:00 Temperature Pulse Rate 68 69 76 Pulse Rate [ From Monitor] Respiratory 12 14 14 Rate Blood Pressure 101/58 95/63 100/71 O2 Sat by Pulse 96 95 94 Oximetry 04/13/22 04/13/22 04/13/22 07:11 07:21 07:30 Temperature Pulse Rate 69 68 64 Pulse Rate [ From Monitor] Respiratory 6 L 8 L 13 Rate Blood Pressure 100/71 106/81 112/71 O2 Sat by Pulse 99 94 98 Oximetry 04/13/22 04/13/22 07:41 07:50 Temperature 97.9 F Pulse Rate 68 77 Pulse Rate [ 87 From Monitor] Respiratory 14 15 Rate Blood Pressure 112/71 O2 Sat by Pulse 98 98 Oximetry - Labs CBC & Chem 7: 04/13/22 04:27 04/13/22 04:27 Labs: Abnormal lab results 04/13/22 04/13/22 Range/Units 04:27 04:27 WBC 20.0 H (4.5-11.0) K/mm3 RDW 17.1 H (13.2-15.2) % Sodium 131 L (137-145) mmol/L Chloride 97.0 L (98-107) mmol/L BUN 37 H (9-20) mg/dL Glucose 147 H (75-100) mg/dL Total Bilirubin 17.40 H (0.1-1.2) mg/dL Direct Bilirubin 11.8 H (0-0.2) mg/dL Total Protein 6.1 L (6.3-8.2) g/dL Albumin 3.0 L (3.9-5) g/dL Medications & Allergies - Medications Allergies/Adverse Reactions: Allergies No Known Allergies Allergy (Verified 04/10/22 14:10) Home Medications: Home Medications Medication Instructions Recorded Confirmed Last Taken Type Apixaban [Eliquis] 5 mg PO BID 30 Days #60 tab 04/06/22 Unknown Rx AtorvaSTATin 10 mg PO QHS 30 Days #30 tab 04/06/22 Unknown Rx Furosemide [Lasix TAB] 80 mg PO BID 30 Days #60 tab 04/06/22 Unknown Rx Sacubitril/Valsartan [Entresto 24 1 each PO BID 30 Days #60 tablet 04/06/22 Unknown Rx - 26 mg] carvediloL [Coreg] 25 mg PO BID 30 Days #60 tablet 04/06/22 Unknown Rx Spironolactone [Aldactone] 25 mg PO QDAY #30 tablet 04/07/22 Unknown Rx Active Medications: Generic Name Dose Route Start Last Admin Trade Name Freq PRN Reason Stop Dose Admin Acetaminophen 650 mg 04/10/22 21:09 Acetaminophen 325 Mg Tab PO Q4H PRN Pain MILD(1-3)/Fever >100.5/PEREZ Apixaban 5 mg 04/10/22 22:00 04/12/22 21:53 Apixaban 5 Mg Tab PO 5 mg BID SARAH Administration Atorvastatin Calcium 10 mg 04/10/22 22:00 04/12/22 21:53 Atorvastatin 10 Mg Tab PO 10 mg QHS SARAH Administration Calcium Carbonate/Glycine 500 mg 04/12/22 14:00 Calcium Carbonate 500 Mg Tab Chew PO Q4H PRN Indigestion NORepinephrine/NS 8 MG-250 ML 8 mg in 250 mls @ 3.75 mls/hr 04/11/22 16:00 04/13/22 07:30 Norepinephrine/Ns 8 Mg-250 Ml (Double Conc) IV 0 mcg/min TITRATE SARAH 0 mls/hr Titration Protocol 2 MCG/MIN Vancomycin HCl 1,500 mg/ 530 mls @ 333.333 mls/hr 04/12/22 14:00 04/13/22 02:55 Sodium Chloride IV 333.333 mls/hr Q12H SARAH Administration Cefepime HCl 2 gm in 100 mls @ 200 mls/hr 04/12/22 14:00 04/13/22 02:55 Cefepime/Ns 2 Gm/100 Ml IV 200 mls/hr Q12H SARAH Administration Metoclopramide HCl 10 mg 04/10/22 21:09 Metoclopramide 10 Mg/2 Ml Inj IV Q6H PRN Nausea And Vomiting Midodrine 10 mg 04/11/22 16:00 04/12/22 15:59 Midodrine 10 Mg Tab PO 10 mg TID@0800,1200,1600 SARAH Administration Morphine Sulfate 2 mg 04/10/22 21:09 04/13/22 04:36 Morphine 2 Mg/1 Ml Inj IV 2 mg Q4H PRN Administration Pain, Moderate (4-6) Ondansetron HCl 4 mg 04/10/22 21:09 Ondansetron 4 Mg/2 Ml Inj IV Q3H PRN Nausea And Vomiting Oxycodone/Acetaminophen 1 tab 04/11/22 21:38 04/11/22 21:43 Oxycodone /Acetaminophen 5-325mg Tab PO 1 tab Q4H PRN Administration Pain, Moderate (4-6) Senna/Docusate Sodium 1 tab 04/12/22 22:00 04/12/22 21:53 Sennosides/Docusate Sodium 8.6/50 Mg Tab PO 1 tab QHS SARAH Administration Sodium Chloride 10 ml 04/10/22 22:00 04/12/22 21:54 Sodium Chloride 0.9% 10 Ml Flush Syringe IV 10 ml BID SARAH Administration Sodium Chloride 10 ml 04/10/22 21:09 Sodium Chloride 0.9% 10 Ml Flush Syringe IV PRN PRN LINE FLUSH HEART Score - HEART Score Troponin: Troponin T 0.016 ng/mL (0.00-0.029) 04/11/22 16:37
--- NOTE | 2022-04-13 08:09 | Progress Note ---
<MARIN HUANG - Last Filed: 04/13/22 15:01> Assessment and Plan - Patient Problems (1) Acute on chronic HFrEF (heart failure with reduced ejection fraction) Current Visit: Yes Status: Acute Plan to address problem: EF 10 to 15% [employer] following-PRATIMA planned for tomorrow. Patient is NPO after midnight. Monitor V/S-follow with linux unix engineer receelli. (2) History of mitral valve replacement with bioprosthetic valve Current Visit: Yes Status: Chronic Plan to address problem: Continue anti-coagulant eliquis PRATIMA tomorrow-r/o vegetation (3) Hyperbilirubinemia Current Visit: Yes Status: Chronic Plan to address problem: patient has hx of alcohol abuse monitor liver function Discussed alcohol use cessation (4) Leukocytosis (leucocytosis) Current Visit: Yes Status: Acute Plan to address problem: Likely 2/2 to Sepsis (POA), Gram-positive cocci bacteremia ID consulted, appreciate recommendations Presented with leukocytosis, fever, lactic acidosis, elevated CRP Continue Antibiotic therapy with Rocephin and vancomycin COVID-19 PCR negative (5) Systemic inflammatory response syndrome (SIRS) Current Visit: Yes Status: Acute Plan to address problem: Elevated d-dimer, CRP and WBC Bilateral leg US-negative CTA of the chest is ordered-f/u with result The high probability of a clinically significant, sudden or life threatening d eterioration of the [multi] system(s) required my full and direct attention, intervention and personal management. The aggregate critical care time was [60] minutes. This time is in addition to time spent performing reported procedures but includes the following: [x] Data Review and interpretation [x] Patient assessment and monitoring of vital signs [x] Documentation [x] Medication orders and management Disposition Plan: icu Total Time Spent with Patient (Minutes): 60 History Interval history: 04/13/22-Patient seen at bedside. Alert and oriented times 3. Patient reports he feeling better than he was at admission. I reviewed lab, mar, and V/S. i reviewed linux unix engineer note and recommendation-repeat ECHO to assess valve. Repeat echo pending to assess valve-GDMT for HF on hold in the setting of shock and hypotension currently requiring midodrine D-dimer is elevated- CTA of the chest to r/o PE PRATIMA tomorrow-patient will be NPO after midnight. Patient condition is stable-patient is transfered to [facility]. Hospitalist Physical - Constitutional Vitals: Temp Pulse Resp BP Pulse Ox 97.9 F 87 15 112/71 98 04/13/22 07:50 04/13/22 07:50 04/13/22 07:50 04/13/22 07:41 04/13/22 07:50 General appearance: Present: no acute distress, obese - EENT Eyes: Present: EOM intact ENT: hearing intact - Respiratory Respiratory: bilateral: CTA - Cardiovascular Rhythm: irregularly irregular - Extremities Extremities: no ischemia - Abdominal General gastrointestinal: soft, non-tender - Integumentary Integumentary: Present: warm, dry - Psychiatric Psychiatric: appropriate mood/affect, cooperative - Allied Health Allied health notes reviewed: nursing HEART Score - HEART Score Troponin: Troponin T 0.016 ng/mL (0.00-0.029) 04/11/22 16:37 Results - Labs CBC & Chem 7: 04/13/22 04:27 04/13/22 04:27 Labs: Laboratory Last Values WBC 20.0 K/mm3 (4.5-11.0) H 04/13/22 04:27 RBC 5.03 M/mm3 (3.65-5.03) 04/13/22 04:27 Hgb 14.1 gm/dl (11.8-15.2) 04/13/22 04:27 Hct 43.3 % (35.5-45.6) 04/13/22 04:27 MCV 86 fl (84-94) 04/13/22 04:27 MCH 28 pg (28-32) 04/13/22 04:27 MCHC 33 % (32-34) 04/13/22 04:27 RDW 17.1 % (13.2-15.2) H 04/13/22 04:27 Plt Count 216 K/mm3 (140-440) 04/13/22 04:27 Add Manual Diff Complete 04/12/22 04:09 Total Counted 100 04/12/22 04:09 Seg Neutrophils % Load Out Person 04/12/22 04:09 Seg Neuts % (Manual) 95.0 % (40.0-70.0) H 04/12/22 04:09 Band Neutrophils % 0 % 04/12/22 04:09 Lymphocytes % (Manual) 1.0 % (13.4-35.0) L 04/12/22 04:09 Reactive Lymphs % (Man) 0 % 04/12/22 04:09 Monocytes % (Manual) 4.0 % (0.0-7.3) 04/12/22 04:09 Eosinophils % (Manual) 0 % (0.0-4.3) 04/12/22 04:09 Basophils % (Manual) 0 % (0.0-1.8) 04/12/22 04:09 Metamyelocytes % 0 % 04/12/22 04:09 Myelocytes % 0 % 04/12/22 04:09 Promyelocytes % 0 % 04/12/22 04:09 Blast Cells % 0 % 04/12/22 04:09 Nucleated RBC % Not Reportable 04/12/22 04:09 Seg Neutrophils # Man 23.0 K/mm3 (1.8-7.7) H 04/12/22 04:09 Band Neutrophils # 0.0 K/mm3 04/12/22 04:09 Lymphocytes # (Manual) 0.2 K/mm3 (1.2-5.4) L 04/12/22 04:09 Abs React Lymphs (Man) 0.0 K/mm3 04/12/22 04:09 Monocytes # (Manual) 1.0 K/mm3 (0.0-0.8) H 04/12/22 04:09 Eosinophils # (Manual) 0.0 K/mm3 (0.0-0.4) 04/12/22 04:09 Basophils # (Manual) 0.0 K/mm3 (0.0-0.1) 04/12/22 04:09 Metamyelocytes # 0.0 K/mm3 04/12/22 04:09 Myelocytes # 0.0 K/mm3 04/12/22 04:09 Promyelocytes # 0.0 K/mm3 04/12/22 04:09 Blast Cells # 0.0 K/mm3 04/12/22 04:09 WBC Morphology Not Reportable 04/12/22 04:09 Hypersegmented Neuts Not Reportable 04/12/22 04:09 Hyposegmented Neuts Not Reportable 04/12/22 04:09 Hypogranular Neuts Not Reportable 04/12/22 04:09 Smudge Cells Not Reportable 04/12/22 04:09 Toxic Granulation Not Reportable 04/12/22 04:09 Toxic Vacuolation Not Reportable 04/12/22 04:09 Dohle Bodies Not Reportable 04/12/22 04:09 Pelger-Huet Anomaly Not Reportable 04/12/22 04:09 Gray Rods Not Reportable 04/12/22 04:09 Platelet Estimate Consistent w auto 04/12/22 04:09 Clumped Platelets Not Reportable 04/12/22 04:09 Plt Clumps, EDTA Not Reportable 04/12/22 04:09 Large Platelets Not Reportable 04/12/22 04:09 Giant Platelets Not Reportable 04/12/22 04:09 Platelet Satelliting Not Reportable 04/12/22 04:09 Plt Morphology Comment Not Reportable 04/12/22 04:09 RBC Morphology Not Reportable 04/12/22 04:09 Dimorphic RBCs Not Reportable 04/12/22 04:09 Polychromasia Not Reportable 04/12/22 04:09 Hypochromasia Not Reportable 04/12/22 04:09 Poikilocytosis Not Reportable 04/12/22 04:09 Anisocytosis 1+ 04/12/22 04:09 Microcytosis Not Reportable 04/12/22 04:09 Macrocytosis Not Reportable 04/12/22 04:09 Spherocytes Not Reportable 04/12/22 04:09 Pappenheimer Bodies Not Reportable 04/12/22 04:09 Sickle Cells Not Reportable 04/12/22 04:09 Target Cells Not Reportable 04/12/22 04:09 Tear Drop Cells Not Reportable 04/12/22 04:09 Ovalocytes Not Reportable 04/12/22 04:09 Helmet Cells Not Reportable 04/12/22 04:09 Bains-Philip Bodies Not Reportable 04/12/22 04:09 [place] Rings Not Reportable 04/12/22 04:09 [place] Cells Not Reportable 04/12/22 04:09 Bite Cells Not Reportable 04/12/22 04:09 Crenated Cell Not Reportable 04/12/22 04:09 Elliptocytes Not Reportable 04/12/22 04:09 Acanthocytes (Spur) Not Reportable 04/12/22 04:09 Rouleaux Not Reportable 04/12/22 04:09 Hemoglobin C Crystals Not Reportable 04/12/22 04:09 Schistocytes Not Reportable 04/12/22 04:09 Malaria parasites Not Reportable 04/12/22 04:09 Shubham Bodies Not Reportable 04/12/22 04:09 Hem Pathologist Commnt No 04/12/22 04:09 PT 20.5 Sec. (12.2-14.9) H 04/10/22 18:14 INR 1.51 (0.87-1.13) H 04/10/22 18:14 D-Dimer 1939.20 ng/mlDDU (0-234) H 04/10/22 21:28 Sodium 131 mmol/L (137-145) L 04/13/22 04:27 Potassium 5.0 mmol/L (3.6-5.0) 04/13/22 04:27 Chloride 97.0 mmol/L (98-107) L 04/13/22 04:27 Carbon Dioxide 25 mmol/L (22-30) 04/13/22 04:27 Anion Gap 14 mmol/L 04/13/22 04:27 BUN 37 mg/dL (9-20) H 04/13/22 04:27 Creatinine 0.9 mg/dL (0.8-1.3) 04/13/22 04:27 Estimated GFR > 60 ml/min 04/13/22 04:27 BUN/Creatinine Ratio 41 % 04/13/22 04:27 Glucose 147 mg/dL (75-100) H 04/13/22 04:27 Lactic Acid 2.70 mmol/L (0.7-2.0) H* 04/10/22 18:14 Calcium 8.8 mg/dL (8.4-10.2) 04/13/22 04:27 Magnesium 2.20 mg/dL (1.7-2.3) 04/12/22 04:09 Ferritin 186.3 ng/mL (30.0-300.0) 04/10/22 21:28 Total Bilirubin 17.40 mg/dL (0.1-1.2) H 04/13/22 04:27 Direct Bilirubin 11.8 mg/dL (0-0.2) H 04/13/22 04:27 Indirect Bilirubin 5.6 mg/dL 04/13/22 04:27 AST 29 units/L (5-40) 04/13/22 04:27 ALT 33 units/L (7-56) 04/13/22 04:27 Alkaline Phosphatase 114 units/L (35-129) 04/13/22 04:27 Lactate Dehydrogenase 310 units/L (91-180) H 04/10/22 21:28 Total Creatine Kinase 268 units/L (55-170) H 04/10/22 18:14 Troponin T 0.016 ng/mL (0.00-0.029) 04/11/22 16:37 C-Reactive Protein 15.60 mg/dL (0.00-1.30) H 04/10/22 21:28 NT-Pro-B Natriuret Pep > 12812 pg/mL (0-450) H 04/10/22 18:14 Total Protein 6.1 g/dL (6.3-8.2) L 04/13/22 04:27 Albumin 3.0 g/dL (3.9-5) L 04/13/22 04:27 Albumin/Globulin Ratio 1.0 % 04/13/22 04:27 Lipase 19 units/L (13-60) 04/10/22 18:14 Procalcitonin 46.51 ng/mL (<0.15) 04/10/22 21:28 SARS-CoV-2 (PCR) Negative (Negative) 04/11/22 11:55 Carvajal/IV: Voiding Method Urinal Active Medications - Current Medications Current Medications: Generic Name Dose Route Start Last Admin Trade Name Freq PRN Reason Stop Dose Admin Acetaminophen 650 mg 04/10/22 21:09 Acetaminophen 325 Mg Tab PO Q4H PRN Pain MILD(1-3)/Fever >100.5/PEREZ Apixaban 5 mg 04/10/22 22:00 04/12/22 21:53 Apixaban 5 Mg Tab PO 5 mg BID SARAH Administration Atorvastatin Calcium 10 mg 04/10/22 22:00 04/12/22 21:53 Atorvastatin 10 Mg Tab PO 10 mg QHS SARAH Administration Calcium Carbonate/Glycine 500 mg 04/12/22 14:00 Calcium Carbonate 500 Mg Tab Chew PO Q4H PRN Indigestion NORepinephrine/NS 8 MG-250 ML 8 mg in 250 mls @ 3.75 mls/hr 04/11/22 16:00 04/13/22 07:30 Norepinephrine/Ns 8 Mg-250 Ml (Double Conc) IV 0 mcg/min TITRATE SARAH 0 mls/hr Titration Protocol 2 MCG/MIN Vancomycin HCl 1,500 mg/ 530 mls @ 333.333 mls/hr 04/12/22 14:00 04/13/22 02:55 Sodium Chloride IV 333.333 mls/hr Q12H SARAH Administration Cefepime HCl 2 gm in 100 mls @ 200 mls/hr 04/12/22 14:00 04/13/22 02:55 Cefepime/Ns 2 Gm/100 Ml IV 200 mls/hr Q12H SARAH Administration Metoclopramide HCl 10 mg 04/10/22 21:09 Metoclopramide 10 Mg/2 Ml Inj IV Q6H PRN Nausea And Vomiting Midodrine 10 mg 04/11/22 16:00 04/12/22 15:59 Midodrine 10 Mg Tab PO 10 mg TID@0800,1200,1600 SARAH Administration Morphine Sulfate 2 mg 04/10/22 21:09 04/13/22 04:36 Morphine 2 Mg/1 Ml Inj IV 2 mg Q4H PRN Administration Pain, Moderate (4-6) Ondansetron HCl 4 mg 04/10/22 21:09 Ondansetron 4 Mg/2 Ml Inj IV Q3H PRN Nausea And Vomiting Oxycodone/Acetaminophen 1 tab 04/11/22 21:38 04/11/22 21:43 Oxycodone /Acetaminophen 5-325mg Tab PO 1 tab Q4H PRN Administration Pain, Moderate (4-6) Senna/Docusate Sodium 1 tab 04/12/22 22:00 04/12/22 21:53 Sennosides/Docusate Sodium 8.6/50 Mg Tab PO 1 tab QHS SARAH Administration Sodium Chloride 10 ml 04/10/22 22:00 04/12/22 21:54 Sodium Chloride 0.9% 10 Ml Flush Syringe IV 10 ml BID SARAH Administration Sodium Chloride 10 ml 04/10/22 21:09 Sodium Chloride 0.9% 10 Ml Flush Syringe IV PRN PRN LINE FLUSH <NNAMDI SHI - Last Filed: 04/14/22 13:02> History Interval history: I saw and evaluated the patient. Discussed with the nurse practitioner and agree with their findings and plan as documented in this note. Hospitalist Physical - Constitutional Vitals: Temp Pulse Resp BP Pulse Ox 97.9 F 132 H 18 199/108 97 04/14/22 11:53 04/14/22 11:53 04/14/22 10:45 04/14/22 11:53 04/14/22 11:53 HEART Score - HEART Score Troponin: Troponin T 0.016 ng/mL (0.00-0.029) 04/11/22 16:37 Results - Labs CBC & Chem 7: 04/14/22 00:06 04/14/22 00:06 Labs: Laboratory Last Values WBC 16.6 K/mm3 (4.5-11.0) H 04/14/22 00:06 RBC 4.58 M/mm3 (3.65-5.03) 04/14/22 00:06 Hgb 12.9 gm/dl (11.8-15.2) 04/14/22 00:06 Hct 39.3 % (35.5-45.6) 04/14/22 00:06 MCV 86 fl (84-94) 04/14/22 00:06 MCH 28 pg (28-32) 04/14/22 00:06 MCHC 33 % (32-34) 04/14/22 00:06 RDW 17.1 % (13.2-15.2) H 04/14/22 00:06 Plt Count 196 K/mm3 (140-440) 04/14/22 00:06 Lymph % (Auto) 3.6 % (13.4-35.0) L 04/14/22 00:06 [place] % (Auto) 8.6 % (0.0-7.3) H 04/14/22 00:06 Eos % (Auto) 0.1 % (0.0-4.3) 04/14/22 00:06 Baso % (Auto) 0.2 % (0.0-1.8) 04/14/22 00:06 Lymph # (Auto) 0.6 K/mm3 (1.2-5.4) L 04/14/22 00:06 [place] # (Auto) 1.4 K/mm3 (0.0-0.8) H 04/14/22 00:06 Eos # (Auto) 0.0 K/mm3 (0.0-0.4) 04/14/22 00:06 Baso # (Auto) 0.0 K/mm3 (0.0-0.1) 04/14/22 00:06 Add Manual Diff Complete 04/12/22 04:09 Total Counted 100 04/12/22 04:09 Seg Neutrophils % 87.5 % (40.0-70.0) H 04/14/22 00:06 Seg Neuts % (Manual) 95.0 % (40.0-70.0) H 04/12/22 04:09 Band Neutrophils % 0 % 04/12/22 04:09 Lymphocytes % (Manual) 1.0 % (13.4-35.0) L 04/12/22 04:09 Reactive Lymphs % (Man) 0 % 04/12/22 04:09 Monocytes % (Manual) 4.0 % (0.0-7.3) 04/12/22 04:09 Eosinophils % (Manual) 0 % (0.0-4.3) 04/12/22 04:09 Basophils % (Manual) 0 % (0.0-1.8) 04/12/22 04:09 Metamyelocytes % 0 % 04/12/22 04:09 Myelocytes % 0 % 04/12/22 04:09 Promyelocytes % 0 % 04/12/22 04:09 Blast Cells % 0 % 04/12/22 04:09 Nucleated RBC % Not Reportable 04/12/22 04:09 Seg Neutrophils # 14.6 K/mm3 (1.8-7.7) H 04/14/22 00:06 Seg Neutrophils # Man 23.0 K/mm3 (1.8-7.7) H 04/12/22 04:09 Band Neutrophils # 0.0 K/mm3 04/12/22 04:09 Lymphocytes # (Manual) 0.2 K/mm3 (1.2-5.4) L 04/12/22 04:09 Abs React Lymphs (Man) 0.0 K/mm3 04/12/22 04:09 Monocytes # (Manual) 1.0 K/mm3 (0.0-0.8) H 04/12/22 04:09 Eosinophils # (Manual) 0.0 K/mm3 (0.0-0.4) 04/12/22 04:09 Basophils # (Manual) 0.0 K/mm3 (0.0-0.1) 04/12/22 04:09 Metamyelocytes # 0.0 K/mm3 04/12/22 04:09 Myelocytes # 0.0 K/mm3 04/12/22 04:09 Promyelocytes # 0.0 K/mm3 04/12/22 04:09 Blast Cells # 0.0 K/mm3 04/12/22 04:09 WBC Morphology Not Reportable 04/12/22 04:09 Hypersegmented Neuts Not Reportable 04/12/22 04:09 Hyposegmented Neuts Not Reportable 04/12/22 04:09 Hypogranular Neuts Not Reportable 04/12/22 04:09 Smudge Cells Not Reportable 04/12/22 04:09 Toxic Granulation Not Reportable 04/12/22 04:09 Toxic Vacuolation Not Reportable 04/12/22 04:09 Dohle Bodies Not Reportable 04/12/22 04:09 Pelger-Huet Anomaly Not Reportable 04/12/22 04:09 Gray Rods Not Reportable 04/12/22 04:09 Platelet Estimate Consistent w auto 04/12/22 04:09 Clumped Platelets Not Reportable 04/12/22 04:09 Plt Clumps, EDTA Not Reportable 04/12/22 04:09 Large Platelets Not Reportable 04/12/22 04:09 Giant Platelets Not Reportable 04/12/22 04:09 Platelet Satelliting Not Reportable 04/12/22 04:09 Plt Morphology Comment Not Reportable 04/12/22 04:09 RBC Morphology Not Reportable 04/12/22 04:09 Dimorphic RBCs Not Reportable 04/12/22 04:09 Polychromasia Not Reportable 04/12/22 04:09 Hypochromasia Not Reportable 04/12/22 04:09 Poikilocytosis Not Reportable 04/12/22 04:09 Anisocytosis 1+ 04/12/22 04:09 Microcytosis Not Reportable 04/12/22 04:09 Macrocytosis Not Reportable 04/12/22 04:09 Spherocytes Not Reportable 04/12/22 04:09 Pappenheimer Bodies Not Reportable 04/12/22 04:09 Sickle Cells Not Reportable 04/12/22 04:09 Target Cells Not Reportable 04/12/22 04:09 Tear Drop Cells Not Reportable 04/12/22 04:09 Ovalocytes Not Reportable 04/12/22 04:09 Helmet Cells Not Reportable 04/12/22 04:09 Bains-Philip Bodies Not Reportable 04/12/22 04:09 [place] Rings Not Reportable 04/12/22 04:09 [place] Cells Not Reportable 04/12/22 04:09 Bite Cells Not Reportable 04/12/22 04:09 Crenated Cell Not Reportable 04/12/22 04:09 Elliptocytes Not Reportable 04/12/22 04:09 Acanthocytes (Spur) Not Reportable 04/12/22 04:09 Rouleaux Not Reportable 04/12/22 04:09 Hemoglobin C Crystals Not Reportable 04/12/22 04:09 Schistocytes Not Reportable 04/12/22 04:09 Malaria parasites Not Reportable 04/12/22 04:09 Shubham Bodies Not Reportable 04/12/22 04:09 Hem Pathologist Commnt No 04/12/22 04:09 PT 20.5 Sec. (12.2-14.9) H 04/10/22 18:14 INR 1.51 (0.87-1.13) H 04/10/22 18:14 D-Dimer 1939.20 ng/mlDDU (0-234) H 04/10/22 21:28 Sodium 136 mmol/L (137-145) L 04/14/22 00:06 Potassium 4.8 mmol/L (3.6-5.0) 04/14/22 00:06 Chloride 101.2 mmol/L (98-107) 04/14/22 00:06 Carbon Dioxide 21 mmol/L (22-30) L 04/14/22 00:06 Anion Gap 19 mmol/L 04/14/22 00:06 BUN 33 mg/dL (9-20) H 04/14/22 00:06 Creatinine 0.8 mg/dL (0.8-1.3) 04/14/22 00:06 Estimated GFR > 60 ml/min 04/14/22 00:06 BUN/Creatinine Ratio 41 % 04/14/22 00:06 Glucose 135 mg/dL (75-100) H 04/14/22 00:06 Lactic Acid 2.70 mmol/L (0.7-2.0) H* 04/10/22 18:14 Calcium 8.6 mg/dL (8.4-10.2) 04/14/22 00:06 Magnesium 2.20 mg/dL (1.7-2.3) 04/12/22 04:09 Ferritin 186.3 ng/mL (30.0-300.0) 04/10/22 21:28 Total Bilirubin 17.40 mg/dL (0.1-1.2) H 04/13/22 04:27 Direct Bilirubin 11.8 mg/dL (0-0.2) H 04/13/22 04:27 Indirect Bilirubin 5.6 mg/dL 04/13/22 04:27 AST 29 units/L (5-40) 04/13/22 04:27 ALT 33 units/L (7-56) 04/13/22 04:27 Alkaline Phosphatase 114 units/L (35-129) 04/13/22 04:27 Lactate Dehydrogenase 310 units/L (91-180) H 04/10/22 21:28 Total Creatine Kinase 268 units/L (55-170) H 04/10/22 18:14 Troponin T 0.016 ng/mL (0.00-0.029) 04/11/22 16:37 C-Reactive Protein 15.60 mg/dL (0.00-1.30) H 04/10/22 21:28 NT-Pro-B Natriuret Pep > 50366 pg/mL (0-450) H 04/10/22 18:14 Total Protein 6.1 g/dL (6.3-8.2) L 04/13/22 04:27 Albumin 3.0 g/dL (3.9-5) L 04/13/22 04:27 Albumin/Globulin Ratio 1.0 % 04/13/22 04:27 Lipase 19 units/L (13-60) 04/10/22 18:14 Procalcitonin 46.51 ng/mL (<0.15) 04/10/22 21:28 Urine Creatinine 75.0 mg/dL (0.1-20.0) H 04/13/22 16:00 Urine Sodium 12 mmol/L 04/13/22 16:00 Vancomycin Trough 21.3 ug/mL (5.0-20.0) H 04/13/22 13:00 SARS-CoV-2 (PCR) Negative (Negative) 04/11/22 11:55 Microbiology: Microbiology 04/14/22 06:58 Peripheral/Venous Blood Culture - Preliminary Culture in Progress 04/13/22 23:30 Peripheral/Venous Blood Culture - Preliminary Culture in Progress 04/10/22 18:14 Peripheral/Venous Blood Culture - Preliminary Staphylococcus Aureus 04/10/22 18:14 Peripheral/Venous Blood Culture - Preliminary Staphylococcus Aureus Carvajal/IV: Voiding Method Toilet Active Medications - Current Medications Current Medications: Generic Name Dose Route Start Last Admin Trade Name Freq PRN Reason Stop Dose Admin Acetaminophen 650 mg 04/10/22 21:09 Acetaminophen 325 Mg Tab PO Q4H PRN Pain MILD(1-3)/Fever >100.5/PEREZ Apixaban 5 mg 04/10/22 22:00 04/14/22 11:46 Apixaban 5 Mg Tab PO 5 mg BID SARAH Administration Atorvastatin Calcium 10 mg 04/10/22 22:00 04/13/22 21:21 Atorvastatin 10 Mg Tab PO 10 mg QHS SARAH Administration Calcium Carbonate/Glycine 500 mg 04/12/22 14:00 Calcium Carbonate 500 Mg Tab Chew PO Q4H PRN Indigestion Sodium Chloride 1,000 mls @ 150 mls/hr 04/14/22 09:00 04/14/22 08:30 Nacl 0.9% 1000 Ml IV 150 mls/hr DIRECT SARAH Administration Dobutamine HCl/Dextrose 500 mg in 250 mls @ 7.838 mls/hr 04/14/22 10:00 04/14/22 11:47 Dobutrex Drip 500mg/D5w 250ml IV 2.5 mcg/kg/min DIRECT SARAH 7.838 mls/hr Administration Protocol 2.5 MCG/KG/MIN Nafcillin Sodium 2 gm/ Sodium 100 mls @ 100 mls/30 min 04/14/22 13:00 Chloride IV Q4H SARAH Protocol Gentamicin Sulfate/Sodium Chloride 100 mls @ 200 mls/hr 04/14/22 12:30 Gentamicin/Ns 80 Mg/100 Ml IV Q8H SARAH Metoclopramide HCl 10 mg 04/10/22 21:09 Metoclopramide 10 Mg/2 Ml Inj IV Q6H PRN Nausea And Vomiting Midodrine 10 mg 04/11/22 16:00 04/14/22 11:46 Midodrine 10 Mg Tab PO 10 mg TID@0800,1200,1600 SARAH Administration Morphine Sulfate 2 mg 04/10/22 21:09 04/14/22 03:45 Morphine 2 Mg/1 Ml Inj IV 2 mg Q4H PRN Administration Pain, Moderate (4-6) Ondansetron HCl 4 mg 04/10/22 21:09 Ondansetron 4 Mg/2 Ml Inj IV Q3H PRN Nausea And Vomiting Oxycodone/Acetaminophen 1 tab 04/11/22 21:38 04/13/22 22:35 Oxycodone /Acetaminophen 5-325mg Tab PO 1 tab Q4H PRN Administration Pain, Moderate (4-6) Senna/Docusate Sodium 1 tab 04/12/22 22:00 04/13/22 21:21 Sennosides/Docusate Sodium 8.6/50 Mg Tab PO 1 tab QHS SARAH Administration Sodium Chloride 10 ml 04/10/22 22:00 04/14/22 11:47 Sodium Chloride 0.9% 10 Ml Flush Syringe IV 10 ml BID SARAH Administration Sodium Chloride 10 ml 04/10/22 21:09 Sodium Chloride 0.9% 10 Ml Flush Syringe IV PRN PRN LINE FLUSH
[2022-04-13] MEDS: MIDODRINE 10 MG TAB PO SCH ×3 (09:02→16:02)
[2022-04-13] MEDS: APIXABAN 5 MG TAB PO SCH ×2 (09:02→21:21)
--- NOTE | 2022-04-13 10:12 | Progress Note ---
Assessment and Plan Pt is a 46-year-old AA male with a hx of HFrEF/NICMP (EF 10-15%), PAFlutter (on Eliquis), CHB s/p PPM ([employer]tr[employer]), bioprosthetic MV, TV repair, and HTN who presented with complaints of generalized weakness, fever/chills, abdominal pain, N/V, and diarrhea. Abd Pain / Diarrhea Sepsis Shock (septic +/- cardiogenic) HFrEF / NICMP KAYLIN Hyponatremia PAFlutter (on Eliquis 5mg BID) S/p DENVER Occlusion (11/2016) H/o Severe MR s/p Bioprosthetic MV (11/2016) S/p TV Repair/Ring Annuloplasty (11/2016) H/o CHB s/p PPM ([employer]tronic) H/o HTN Liver Disease/Chronic Jaundice H/o EtOH Abuse H/o Tobacco Abuse Echo 04/01/2022: EF 10 to 15%. Left ventricle is mildly dilated. Severe global hypokinesis of left ventricle. Left ventricular end-diastolic pressure is elevated. Right ventricle is dilated. Right ventricle is hypokinetic. Device lead is present in right ventricle. Left atrium is mildly dilated. Right atrium is dilated. Bioprosthetic mitral valve is present. Mild to moderate tricuspid regurgitation. RVSP 41mmHg. Echo 05/2018: EF 15-20%, LA and RA dilated, RV dilated and hypokinetic, pacemaker electrode in right sided chambers, bioprosthetic valve in mitral position functioning normally, mod AR, no , mod TR, pulm HTN RVSP 65mmHg. Lexiscan MPI stress test 10/2018: Negative for ischemia, EF 15%. Outpatient Medications: carvedilol 25 mg p.o. twice daily, Entresto 24-26 mg p.o. twice daily, Lasix 40 mg p.o. twice daily, Aldactone 25 mg p.o daily, Eliquis for anticoagulation. Plan: Repeat echo pending to assess valve GDMT for HF on hold in the setting of shock and hypotension currently requiring midodrine Will defer to Primary regarding confirmatory testing for PE. Pt reports compliance with OAC as an outpatient. Anticoagulated on Eliquis COVID-19 neg x 1. Due to positive blood cultures we will plan for PRATIMA in the a.m. Patient to be n.p.o. abdomen Discussed plan of care with patient who verbalized understanding and acknowledgment Pt seen in conjunction with Dr. Holman, who agrees with the assessment and plan of care. - Patient Problems (1) Sepsis Current Visit: Yes Status: Acute Qualifiers: Severe sepsis shock status: with septic shock (2) Shock Current Visit: Yes Status: Acute (3) Cardiac pacemaker in situ Current Visit: Yes Status: Chronic (4) H/O tricuspid valve repair Current Visit: Yes Status: Chronic (5) HFrEF (heart failure with reduced ejection fraction) Current Visit: Yes Status: Chronic (6) History of mitral valve replacement with bioprosthetic valve Current Visit: Yes Status: Chronic (7) Hyperbilirubinemia Current Visit: Yes Status: Chronic (8) Nonischemic cardiomyopathy Current Visit: Yes Status: Chronic (9) Paroxysmal atrial flutter Current Visit: Yes Status: Chronic (10) Abdominal pain Current Visit: No Status: Acute (11) AICD (automatic cardioverter/defibrillator) present Current Visit: No Status: Chronic Subjective Date of service: 04/13/22 Principal diagnosis: Sepsis Interval history: Patient resting in bed in no acute Paced rhythm 70s Objective Vital Signs Temp Pulse Pulse Resp BP Pulse Ox 04/13/22 09:40 95 04/13/22 09:00 66 14 101/66 97 04/13/22 08:51 72 25 H 101/66 93 04/13/22 08:41 67 13 99/65 97 04/13/22 08:30 66 17 99/65 96 04/13/22 08:21 71 13 92/70 99 04/13/22 08:11 73 10 L 108/71 98 04/13/22 08:00 75 16 108/71 98 04/13/22 07:51 85 16 102/62 99 04/13/22 07:50 97.9 F 77 87 15 98 04/13/22 07:41 68 14 112/71 98 04/13/22 07:30 64 13 112/71 98 04/13/22 07:21 68 8 L 106/81 94 04/13/22 07:11 69 6 L 100/71 99 04/13/22 07:00 76 14 100/71 94 04/13/22 06:51 69 14 95/63 95 04/13/22 06:41 68 12 101/58 96 04/13/22 06:30 69 14 101/58 95 1822 06:21 64 16 94/61 95 04/13/22 06:11 70 11 L 96/64 93 04/13/22 06:00 69 10 L 96/64 90 04/13/22 05:51 74 12 91/71 94 04/13/22 05:41 71 16 99/68 87 04/13/22 05:30 66 11 L 99/68 96 04/13/22 05:20 62 12 91/71 95 04/13/22 05:11 67 11 L 103/67 93 04/13/22 05:00 66 12 103/67 93 04/13/22 04:51 61 10 L 97/58 97 04/13/22 04:41 61 10 L 97/58 91 04/13/22 04:30 60 12 97/58 99 04/13/22 04:20 61 16 104/67 99 04/13/22 04:11 63 10 L 98/72 98 04/13/22 04:00 97.5 F L 62 76 13 98/72 98 04/13/22 03:51 63 15 93/66 98 04/13/22 03:41 62 13 93/66 98 04/13/22 03:31 68 18 93/66 100 04/13/22 03:21 65 18 107/65 99 04/13/22 03:11 63 17 105/67 98 04/13/22 03:00 61 13 105/67 97 04/13/22 02:51 62 14 103/66 99 04/13/22 02:41 80 17 107/65 96 04/13/22 02:30 62 19 107/65 92 04/13/22 02:21 62 14 100/61 94 04/13/22 02:11 63 13 102/69 97 04/13/22 02:00 63 12 102/69 95 04/13/22 01:51 63 11 L 102/68 97 18 01:41 65 14 96/59 95 18/22 01:30 70 14 96/59 94 1822 01:21 73 14 91/52 91 18/22 01:11 67 14 94/48 95 18/22 01:00 67 13 94/48 91 1822 00:51 67 14 80/57 96 07/18/22 00:41 69 12 89/59 96 07/18/22 00:30 62 12 89/59 89 /18/22 00:21 69 12 99/58 94 18/22 00:11 62 12 95/58 95 18/22 00:00 97.8 F 60 76 13 95/58 99 17/22 23:51 61 12 97/67 96 17/22 23:41 61 13 92/61 96 17/22 23:31 60 13 92/61 98 17/22 23:21 60 12 86/60 97 17/22 23:11 60 15 101/68 95 17/22 23:00 60 14 101/68 90 17/22 22:51 61 13 100/59 96 17/22 22:41 62 13 100/62 96 04/12/22 22:30 75 10 L 88/67 94 17 22:20 61 12 100/62 98 04/12/22 22:10 63 15 109/66 95 04/12/22 22:01 63 12 127/106 83 L 04/12/22 22:00 95 04/12/22 21:50 63 11 L 116/84 96 04/12/22 21:40 65 18 112/73 92 04/12/22 21:30 64 12 99/69 90 04/12/22 21:20 63 12 97/64 88 22 21:10 63 13 102/68 92 1722 21:00 62 12 90/64 93 22 20:50 63 13 98/73 95 22 20:40 62 14 102/78 93 17/22 20:30 62 13 112/77 92 22 20:20 63 15 118/74 96 22 20:10 62 15 110/71 96 04/12/22 20:01 71 18 107/80 93 04/12/22 20:00 97.9 F 72 76 13 98 22 19:50 67 11 L 120/81 97 1722 19:40 63 16 114/66 93 17/22 19:30 62 12 106/70 92 1722 19:21 63 15 105/68 96 04/12/22 19:10 64 13 99/70 94 04/12/22 19:00 65 13 97/67 95 04/12/22 18:51 68 15 112/70 94 04/12/22 18:47 62 12 96/64 98 04/12/22 18:40 63 10 L 96/63 97 04/12/22 18:30 65 14 93/61 98 04/12/22 18:20 63 18 104/73 97 04/12/22 18:10 67 12 98/66 96 04/12/22 18:00 62 10 L 106/71 98 04/12/22 17:50 63 20 103/70 99 04/12/22 17:40 63 15 103/56 96 04/12/22 17:30 63 12 102/69 97 04/12/22 17:21 65 11 L 99/60 96 04/12/22 17:10 63 9 L 99/67 04/12/22 17:00 65 11 L 99/64 99 04/12/22 16:51 66 14 95/66 04/12/22 16:41 65 15 95/66 04/12/22 16:31 72 10 L 95/66 04/12/22 16:29 87 19 95/66 04/12/22 16:23 97.5 F L 04/12/22 16:11 64 16 95/66 100 04/12/22 16:00 74 74 20 100/60 100 04/12/22 15:50 65 108/68 91 04/12/22 15:40 64 100/68 04/12/22 15:30 64 105/62 94 04/12/22 15:20 64 99/63 90 04/12/22 15:10 64 93/65 96 04/12/22 15:00 63 90/66 95 04/12/22 14:50 64 97/64 96 04/12/22 14:40 63 102/64 96 04/12/22 14:31 63 96/60 96 04/12/22 14:20 71 13 102/68 98 04/12/22 14:10 64 11 L 113/67 92 04/12/22 14:00 64 14 106/73 92 04/12/22 13:50 65 22 98/67 94 04/12/22 13:40 70 20 99/70 96 04/12/22 13:30 63 21 101/71 90 07/17/22 13:20 64 14 105/73 95 04/12/22 13:10 63 11 L 99/75 95 04/12/22 13:01 75 23 107/71 99 04/12/22 12:51 64 27 H 107/71 94 04/12/22 12:41 67 21 107/71 97 04/12/22 12:31 64 16 107/71 98 04/12/22 12:21 18 107/71 96 04/12/22 12:11 66 26 H 107/71 97 04/12/22 12:01 67 13 107/71 100 04/12/22 12:00 72 67 13 100 04/12/22 11:51 73 15 107/71 95 04/12/22 11:48 97.4 F L 04/12/22 11:41 86 13 116/71 98 04/12/22 11:30 78 14 105/67 92 04/12/22 11:20 66 30 H 107/71 96 04/12/22 11:10 70 27 H 105/71 93 04/12/22 11:00 66 25 H 107/76 96 04/12/22 10:50 67 16 106/77 97 04/12/22 10:40 20 107/80 04/12/22 10:30 67 20 110/76 96 04/12/22 10:20 67 13 110/74 93 - Physical Examination General: No Apparent Distress HEENT: Positive: EOMI, Jaundice, Normocephaly Neck: Positive: neck supple, trachea midline. Negative: JVD/HJR Cardiac: Positive: Reg Rate and Rhythm Lungs: Positive: Normal Breath Sounds Neuro: Positive: Grossly Intact Abdomen: Positive: Tender, Distended Skin: Negative: Rash Musculoskeletal: No Pain Extremities: Present: upper extr. pulses, edema (trace BLE), warm - Labs and Meds Cardiac Enzymes 04/13/22 Range/Units 04:27 AST 29 (5-40) units/L CBC 04/13/22 Range/Units 04:27 WBC 20.0 H (4.5-11.0) K/mm3 RBC 5.03 (3.65-5.03) M/mm3 Hgb 14.1 (11.8-15.2) gm/dl Hct 43.3 (35.5-45.6) % Plt Count 216 (140-440) K/mm3 Comprehensive Metabolic Panel 04/13/22 Range/Units 04:27 Sodium 131 L (137-145) mmol/L Potassium 5.0 (3.6-5.0) mmol/L Chloride 97.0 L (98-107) mmol/L Carbon Dioxide 25 (22-30) mmol/L BUN 37 H (9-20) mg/dL Creatinine 0.9 (0.8-1.3) mg/dL Glucose 147 H (75-100) mg/dL Calcium 8.8 (8.4-10.2) mg/dL Direct Bilirubin 11.8 H (0-0.2) mg/dL Indirect Bilirubin 5.6 mg/dL AST 29 (5-40) units/L ALT 33 (7-56) units/L Alkaline Phosphatase 114 (35-129) units/L Total Protein 6.1 L (6.3-8.2) g/dL Albumin 3.0 L (3.9-5) g/dL - Imaging and Cardiology EKG: report reviewed, image reviewed Echo: report reviewed - Telemetry EKG Rhythm: Paced Pacemaker: ventricular pacing w/capt
--- NOTE | 2022-04-13 14:05 | Cat Scan Report ---
CTA CHEST WITH CONTRAST INDICATION / CLINICAL INFORMATION: Elevated d-dimer. TECHNIQUE: Axial CT images were obtained through the chest after injection of 85 cc of Omnipaque 350 IV contrast. 3 plane MIP and/or 3D reconstructions were produced. All CT scans at this location are p erformed using CT dose reduction for ALARA by means of automated exposure control. COMPARISON: 11/01/2018 FINDINGS: PULMONARY ARTERIES: No pulmonary emboli. THORACIC AORTA: No significant abnormality. HEART: Cardiac megaly. CORONARY ARTERY CALCIFICATION: None. MEDIASTINUM / DORY: No significant abnormality. PLEURA: No pleural effusion. No pneumothorax. LUNGS: No acute air space or interstitial disease. Scattered bibasilar atelectasis. ADDITIONAL FINDINGS: None. UPPER ABDOMEN: No acute findings. SKELETAL STRUCTURES: No significant osseous abnormality. IMPRESSION: 1. No CT evidence for pulmonary embolism. 2. No acute findings. 3. Cardiomegaly. Signer Name: Bret Larios DO Signed: 04/13/2022 2:01 PM Workstation Name: [id number]
[2022-04-13] MEDS: SENNOSIDES/DOCUSATE SODIUM 8.6/50 MG TAB PO SCH (21:21)
[2022-04-13] MEDS: oxyCODONE /ACETAMINOPHEN 5-325MG TAB PO PRN (22:35)
--- NOTE | 2022-04-13 23:14 | Consultation ---
History of Present Illness - Reason for Consult Consult date: 04/13/22 - History of Present Illness 46-year-old man past medical history nonischemic cardiomyopathy with low ejection fraction, ascites, chronic jaundice, hypertension, pacemaker in place, previous tricuspid and mitral valve replacements presented to hospital complaining of fevers, chills, nausea, vomiting, fatigue. He also complains of some shortness of breath that is chronic. He was found to be febrile. Febrile to 103, temperature is little bit low afterwards. White count peaked at 30.8, now 20. Blood cultures with MSSA. Currently on Ancef normal renal function now after initial KAYLIN. Chronic elevated bilirubin at 17.4. Imaging personally reviewed: Chest CTA: No acute findings. No pneumonia. Review of Systems: Bold if positive, otherwise negative General: fevers, chills, rigors HEENT: visual disturbance, diplopia, eye pain Respiratory: cough, sputum, hemoptysis, shortness of breath Cardiovascular: chest pain, syncope Gastrointestinal: nausea, vomiting, diarrhea, abdominal pain Genitourinary: dysuria, hematuria, flank pain Musculoskeletal: neck pain, back pain, joint pain, edema Neurologic: headaches, seizures Hematologic: easy bruising or bleeding Endocrine: night sweats, acute weight loss Skin: rash, jaundice, redness Psychiatric: suicidal, homicidal ideation Past History Past Medical History: atrial fib, GERD, heart failure, hypertension, liver disease Past Surgical History: Other (bioprosthetic MV, TV repair, pacemaker) Social history: smoking (former, quit this year), alcohol abuse (former) Family history: diabetes, hypertension, stroke Medications and Allergies Allergies Allergy/AdvReac Type Severity Reaction Status Date / Time No Known Allergies Allergy Verified 04/10/22 14:10 Home Medications Medication Instructions Recorded Confirmed Last Taken Type Apixaban [Eliquis] 5 mg PO BID 30 Days #60 tab 04/06/22 Unknown Rx AtorvaSTATin 10 mg PO QHS 30 Days #30 tab 04/06/22 Unknown Rx Furosemide [Lasix TAB] 80 mg PO BID 30 Days #60 tab 04/06/22 Unknown Rx Sacubitril/Valsartan [Entresto 24 1 each PO BID 30 Days #60 tablet 04/06/22 Unknown Rx - 26 mg] carvediloL [Coreg] 25 mg PO BID 30 Days #60 tablet 04/06/22 Unknown Rx Spironolactone [Aldactone] 25 mg PO QDAY #30 tablet 04/07/22 Unknown Rx Active Meds: Active Medications Acetaminophen (Acetaminophen 325 Mg Tab) 650 mg PO Q4H PRN PRN Reason: Pain MILD(1-3)/Fever >100.5/PEREZ Apixaban (Apixaban 5 Mg Tab) 5 mg PO BID [facility] Last Admin: 04/13/22 21:21 Dose: 5 mg Atorvastatin Calcium (Atorvastatin 10 Mg Tab) 10 mg PO QHS [facility] Last Admin: 04/13/22 21:21 Dose: 10 mg Calcium Carbonate/Glycine (Calcium Carbonate 500 Mg Tab Chew) 500 mg PO Q4H PRN PRN Reason: Indigestion NORepinephrine/NS 8 MG-250 ML (Norepinephrine/Ns 8 Mg-250 Ml (Double Conc)) 8 mg in 250 mls @ 3.75 mls/hr IV TITRATE [facility]; Protocol Last Titration: 04/13/22 07:30 Dose: 0 mcg/min, 0 mls/hr Cefazolin Sodium 2 gm/ Sodium (Chloride) 100 mls @ 200 mls/hr IV Q8H [facility]; Protocol Last Infusion: 04/13/22 15:30 Dose: Infused Metoclopramide HCl (Metoclopramide 10 Mg/2 Ml Inj) 10 mg IV Q6H PRN PRN Reason: Nausea And Vomiting Midodrine (Midodrine 10 Mg Tab) 10 mg PO TID@0800,1200,1600 [facility] Last Admin: 04/13/22 16:02 Dose: 10 mg Morphine Sulfate (Morphine 2 Mg/1 Ml Inj) 2 mg IV Q4H PRN PRN Reason: Pain, Moderate (4-6) Last Admin: 04/13/22 09:02 Dose: 2 mg Ondansetron HCl (Ondansetron 4 Mg/2 Ml Inj) 4 mg IV Q3H PRN PRN Reason: Nausea And Vomiting Oxycodone/Acetaminophen (Oxycodone /Acetaminophen 5-325mg Tab) 1 tab PO Q4H PRN PRN Reason: Pain, Moderate (4-6) Last Admin: 04/13/22 22:35 Dose: 1 tab Senna/Docusate Sodium (Sennosides/Docusate Sodium 8.6/50 Mg Tab) 1 tab PO QHS [facility] Last Admin: 04/13/22 21:21 Dose: 1 tab Sodium Chloride (Sodium Chloride 0.9% 10 Ml Flush Syringe) 10 ml IV BID [facility] Last Admin: 04/13/22 21:22 Dose: 10 ml Sodium Chloride (Sodium Chloride 0.9% 10 Ml Flush Syringe) 10 ml IV PRN PRN PRN Reason: LINE FLUSH Physical Examination - Physical Exam Narrative exam: Physical Exam: Constitutional: Alert, cooperative. No acute distress Head, Ears, Nose: Normocephalic, atraumatic. External ears, nose normal Eyes: Conjunctivae/corneas clear. No icterus. No ptosis. Neck: Supple, no meningeal signs Oral: dentition fair, no thrush Cardiovascular: S1, S2 normal. Respiratory: Good air entry, clear to auscultation bilaterally GI: Soft, non-tender; bowel sounds normal. No peritoneal signs. Musculoskeletal: No pedal edema, no cyanosis. Skin: No rash or abscess Hem/Lymphatic: No palpable cervical or supraclavicular nodes. No lymphangitis Psych: Mood ok. Affect normal Neurological: Awake, alert, oriented. No gross abnormality - Constitutional Vitals: Vital Signs Temp Pulse Resp BP Pulse Ox 97.5 F L 73 10 L 93/62 97 04/13/22 20:22 04/13/22 21:30 04/13/22 21:30 04/13/22 21:30 04/13/22 21:30 Temperature -Last 24 Hours Temperature 97.5 F Temperature 97.2 F Temperature 97.6 F Temperature 97.4 F Temperature 97.9 F Temperature 97.5 F Temperature 97.8 F Results - Labs CBC & Chem 7: 04/13/22 04:27 04/13/22 04:27 Labs: Abnormal lab results 04/13/22 04/13/22 04/13/22 Range/Units 04:27 04:27 13:00 WBC 20.0 H (4.5-11.0) K/mm3 RDW 17.1 H (13.2-15.2) % Sodium 131 L (137-145) mmol/L Chloride 97.0 L (98-107) mmol/L BUN 37 H (9-20) mg/dL Glucose 147 H (75-100) mg/dL Total Bilirubin 17.40 H (0.1-1.2) mg/dL Direct Bilirubin 11.8 H (0-0.2) mg/dL Total Protein 6.1 L (6.3-8.2) g/dL Albumin 3.0 L (3.9-5) g/dL Urine Creatinine (0.1-20.0) mg/dL Vancomycin Trough 21.3 H (5.0-20.0) ug/mL 04/13/22 Range/Units 16:00 WBC (4.5-11.0) K/mm3 RDW (13.2-15.2) % Sodium (137-145) mmol/L Chloride (98-107) mmol/L BUN (9-20) mg/dL Glucose (75-100) mg/dL Total Bilirubin (0.1-1.2) mg/dL Direct Bilirubin (0-0.2) mg/dL Total Protein (6.3-8.2) g/dL Albumin (3.9-5) g/dL Urine Creatinine 75.0 H (0.1-20.0) mg/dL Vancomycin Trough (5.0-20.0) ug/mL Assessment and Plan Cultures: Blood culture 04/10/2022 MSSA A/P: 46-year-old man past medical history nonischemic cardiomyopathy with low ejection fraction, ascites, chronic jaundice, hypertension, pacemaker in place, previous tricuspid and mitral valve replacements #Acute sepsis: With fevers leukocytosis. Secondary to MSSA bacteremia #MSSA bacteremia: Likely skin source. He is extremely high risk for invasive infection given his pacemaker, artificial tricuspid and mitral valves. #Ischemic cardiomyopathy: Pacemaker in place #KAYLIN: Improving. Recs: -Continue Ancef 2 g every 8 hours -Obtain repeat blood cultures -Obtain TTE -If repeat blood cultures are positive, please obtain PRATIMA given his extremely high risk profile for endocarditis. -If repeat blood cultures positive, likely change nafcillin for better clearance Thank you for the consult, we will continue to follow. Christie Jefferson MD [facility] ([facility] O: [phone] F: [phone]
[2022-04-14 01:06] LABS: Basophils % (Auto) 0.2 % (0.0-1.8); Eosinophils % (Auto) 0.1 % (0.0-4.3); Hematocrit 39.3 % (35.5-45.6); Hemoglobin 12.9 gm/dl (11.8-15.2); Lymphocytes # (Auto) 0.6 K/mm3 (1.2-5.4); Lymphocytes % (Auto) 3.6 % (13.4-35.0); Mean Corpuscular HGB Conc 33 % (32-34); Mean Corpuscular Volume 86 fl (84-94); Monocytes # (Auto) 1.4 K/mm3 (0.0-0.8); Monocytes % (Auto) 8.6 % (0.0-7.3); Platelet Count 196 K/mm3 (140-440); Red Blood Count 4.58 M/mm3 (3.65-5.03); Red Cell Distribution Width 17.1 % (13.2-15.2)
[2022-04-14 02:23] LABS: BUN/Creatinine Ratio 41; Blood Urea Nitrogen 33 mg/dL (9-20); Calcium 8.6 mg/dL (8.4-10.2); Hemolysis Index 0
[2022-04-14] MEDS: MORPHINE 2 MG/1 ML INJ IV PRN (03:45)
[2022-04-14] MEDS ORDERED: fentaNYL 100 MCG/2 ML INJ ONE (07:47)
[2022-04-14] MEDS ORDERED: MIDAZOLAM 2 MG/2 ML INJ ONE ×2 (07:47)
[2022-04-14] MEDS ORDERED: SODIUM CHLORIDE P/F VIAL 10 ML 0 ML ONE (07:47)
[2022-04-14] MEDS ORDERED: PHENYLEPHRINE/NS 1,000 MCG/10 ML SYRINGE (OR USE) IV ONE (07:47)
[2022-04-14] MEDS ORDERED: KETAMINE/STERILE WATER 50 MG/ML SYRINGE ONE (07:48)
[2022-04-14] MEDS ORDERED: propofoL 200 MG/20 ML VIAL IV ONE (07:48)
[2022-04-14] MEDS ORDERED: ePHEDrine SULFATE 50 MG/1 ML INJ ONE (07:48)
[2022-04-14] MEDS ORDERED: SODIUM CHLORIDE 0.9% 1000 ML 1,000 ML ONE (08:11)
--- NOTE | 2022-04-14 08:38 | Anesthesia Consultation ---
Anesthesia Consult and Med Hx Date of service: 04/14/22 - Airway Anesthetic Teeth Evaluation: Good ROM Head & Neck: Adequate Mental/Hyoid Distance: Adequate Mallampati Class: Class II Intubation Access Assessment: Probably Good - Pre-Operative Health Status ASA Pre-Surgery Classification: ASA4 Proposed Anesthetic Plan: MAC - Pulmonary Hx Respiratory Symptoms: No - Cardiovascular System Hx Hypertension: Yes (prior hx; currently on midodrine ) Hx Coronary Artery Disease: No (NICMP EF 10-15%) Hx Cardia Arrhythmia: Yes (a-flutter on eliquis; complete heart block) Hx Pacemaker: Yes Hx Internal Defibrillator: Yes Hx Valvular Heart Disease: Yes (s/p MVR/TVR) - Central Nervous System CVA: No - Endocrine Hx Renal Disease: Yes (KAYLIN) Hx Liver Disease: Yes Hx Insulin Dependent Diabetes: No Hx Non-Insulin Dependent Diabetes: No - Other Systems Hx Obesity: Yes (BMI 36) - Additional Comments Anesthesia Medical History Comments: Presented with sepsis and bacteremia now scheduled for PRATIMA.
--- NOTE | 2022-04-14 08:38 | Anesthesia Day of Surgery ---
Anesthesia Day of Surgery - Day of Surgery Patient Examined: Yes Patient H&P Reviewed: Yes Patient is NPO: Yes
[2022-04-14] MEDS ORDERED: SODIUM CHLORIDE 0.9% 1000 ML 1,000 ML IV SCH (09:00)
[2022-04-14] MEDS ORDERED: BENZOCAINE 20% TOP SPRAY 0.5 ML UNIT DOSE MM NR (09:00)
--- NOTE | 2022-04-14 10:15 | Discharge Summary ---
Providers - Providers Date of Admission: 04/10/22 21:09 Date of discharge: 04/14/22 Attending physician: BENNIE CANO 04/10/22 21:09 Consult to Physician [CONS] Routine Comment: Consulting Provider: RICHARD WHALEY Physician Instructions: Reason For Exam: sepsis 04/11/22 15:44 Consult to Physician [CONS] Routine Comment: noted/ pankaj Consulting Provider: ALECIA VALDIVIA Physician Instructions: Reason For Exam: Cardiogenic/septic shock/critical care consult 04/11/22 15:49 Consult to Physician [CONS] Routine Comment: Consulting Provider: ILYA LI Physician Instructions: Reason For Exam: Cardiogenic shock/cardiomyopathy Primary care physician: CELL RELINER Hospitalization Reason for admission: Respiratory failure Condition: Fair Hospital course: 46-year-old man past medical history nonischemic cardiomyopathy with low ejection fraction, ascites, chronic jaundice, hypertension, pacemaker in place, previous tricuspid and mitral valve replacements presented to hospital complaining of fevers, chills, nausea, vomiting, fatigue. He also complains of some shortness of breath that is chronic. He was found to be febrile. Febrile to 103, temperature is little bit low afterwards. White count peaked at 30.8, now 20. Blood cultures with MSSA. Currently on Ancef normal renal function now after initial KAYLIN. Chronic elevated bilirubin at 17.4. Imaging personally reviewed: Chest CTA: No acute findings. No pneumonia. Hospital course by organ system: Neuro: NAD -Reorientation as needed -Maintain sleep-wake cycle -As needed analgesia Cardiac: h/o HFrEF/NICMP (EF 10-15%), AFlutter (on Eliquis), CHB s/p PPM, bioprosthetic MV & TV repair (2017), HTN, HLD -Cardiology consulted, appreciate recommendations -Blood pressure monitoring per protocol -s/p dobutamine -Vasopressor support with levophed -MAP goal greater than 65 -Midodrine 3 times daily -Per cardiology: -Echo 04/01/2022: EF 10 to 15%. Left ventricle is mildly dilated. Severe global hypokinesis of left ventricle. Left ventricular end-diastolic pressure is elevated. Right ventricle is dilated. Right ventricle is hypokinetic. Device lead is present in right ventricle. Left atrium is mildly dilated. Right atrium is dilated. Bioprosthetic mitral valve is present. Mild to moderate tricuspid regurgitation. RVSP 41mmHg. -Echo 05/2018: EF 15-20%, LA and RA dilated, RV dilated and hypokinetic, pacemaker electrode in right sided chambers, bioprosthetic valve in mitral position functioning normally, mod AR, no , mod TR, pulm HTN RVSP 65mmHg. -Lexiscan MPI stress test 10/2018: Negative for ischemia, EF 15%. PRATIMA revealed endocarditis Respiratory: Acute hypoxic respiratory failure -CCM consulted, appreciate recommendations -Supplemental oxygen as needed -Pulmonary hygiene -SPO2 monitoring GI: Chronic Hyperbilirubinemia -04/01 CT abdomen/pelvis showed enlarged liver with suspected hepatic steatosis, mild nodular contour with carotid hypertrophy may reflect cirrhosis, cholelithiasis -04/01 abdominal ultrasound showed hepatomegaly with hepatic steatosis cholelithiasis with gallbladder wall thickening and gallbladder sludge -PPI -Cardiac diet -BR: Senokot S : Hyponatremia, Acute Kidney Injury -Monitor intake and output -Renally dose medications -Avoid nephrotoxic medications -Urine lytes pending -Trend BMP ID: Sepsis (POA), Gram-positive cocci bacteremia -ID consulted, appreciate recommendations -Presented with leukocytosis, fever, lactic acidosis, elevated CRP -Antibiotic therapy with Rocephin and vancomycin -COVID-19 PCR negative -f/u blood culture -Monitor WBC and temperature curve Endo: -Avoid hypoglycemia -SSI -Accu-Cheks q. xxx -Long-acting insulin, titrate as needed Heme: Eleated ddimer -BLE dopplar US (-) -Trend CBC -Transfuse hemoglobin less than 7 -SCDs to BLE while in bed Disposition: [facility] Final Discharge Diagnosis (Prints w/discharge instructions): Acute on chronic heart failure with preserved EF, history of mitral valve replacement with valve prosthetic valve, hyperbilirubinemia, leukocytosis, sepsis, endocarditis Core Measure Documentation - Palliative Care Palliative Care/ Comfort Measures: Not Applicable - Core Measures Any of the following diagnoses?: none Exam - Constitutional Vitals: Temp Pulse Resp BP Pulse Ox 99.2 F 79 21 89/62 99 04/14/22 09:10 04/14/22 10:00 04/14/22 10:00 04/14/22 10:00 04/14/22 10:00 General appearance: Present: no acute distress, well-nourished - EENT Eyes: Present: PERRL ENT: hearing intact, clear oral mucosa - Neck Neck: Present: supple, normal ROM - Respiratory Respiratory effort: normal Respiratory: bilateral: CTA - Cardiovascular Heart Sounds: Present: S1 & S2. Absent: rub, click - Extremities Extremities: pulses symmetrical, No edema Peripheral Pulses: within normal limits - Abdominal General gastrointestinal: Present: soft, non-tender, non-distended, normal bowel sounds Male genitourinary: Present: normal - Integumentary Integumentary: Present: clear, warm, dry - Musculoskeletal Musculoskeletal: gait normal, strength equal bilaterally - Psychiatric Psychiatric: appropriate mood/affect, intact judgment & insight - Neurologic Neurologic: CNII-XII intact, moves all extremities Plan Activity: advance as tolerated Weight Bearing Status: Weight Bear as Tolerated Diet: low fat, low cholesterol, low salt Follow up with: PRIMARY CARE, [Primary Care Provider] - 3-5 Days
--- NOTE | 2022-04-14 10:34 | Progress Note ---
Assessment and Plan 46 y/o male with sepsis, bacteremia 04/14/22: Will sign off from a critical care standpoint. 04/13/22: Continue abx therapy. Suggest ID consult. Follow up repeat echo. Shock has improved, will transfer to telemetry floor later today. 1. Infectious work up: repeat echo, may need PRATIMA. Exam oral cavity as well 2. Tried dobutamine to see if there was a component of cardiogenic shock but still required pressors, so will stop. 3. Follow up cardiology recs 4. Follow up renal recs 5. may need repeat ultrasound of abdomen, had one on last admit, but given worsening state, may need to repeat 6. Guarded prognosis. CCT 31 minutes. Subjective Date of service: 04/14/22 Principal diagnosis: Sepsis Interval history: Successful transfer out of unit. No pulm issues. Objective - Constitutional Vitals: Vital Signs - 12hr 04/13/22 04/14/22 04/14/22 23:35 00:00 00:18 Temperature 97.8 F Temperature [ Post-Procedure] Pulse Rate 70 67 Pulse Rate [ Post-Procedure] Respiratory 20 18 Rate Respiratory Rate [Post- Procedure] Blood Pressure 94/56 Blood Pressure [Post-Procedure ] O2 Sat by Pulse 97 94 Oximetry O2 Sat by Pulse Oximetry [Post -Procedure] 04/14/22 04/14/22 04/14/22 03:43 04:00 09:10 Temperature 97.4 F L Temperature [ 99.2 F Post-Procedure] Pulse Rate 68 70 Pulse Rate [ 89 Post-Procedure] Respiratory 20 Rate Respiratory 20 Rate [Post- Procedure] Blood Pressure 139/81 Blood Pressure 99/63 [Post-Procedure ] O2 Sat by Pulse 88 Oximetry O2 Sat by Pulse 100 Oximetry [Post -Procedure] 04/14/22 04/14/22 04/14/22 09:15 09:30 09:45 Temperature Temperature [ Post-Procedure] Pulse Rate Pulse Rate [ 88 85 84 Post-Procedure] Respiratory Rate Respiratory 21 20 19 Rate [Post- Procedure] Blood Pressure Blood Pressure 103/66 113/63 89/68 [Post-Procedure ] O2 Sat by Pulse Oximetry O2 Sat by Pulse 100 99 99 Oximetry [Post -Procedure] 04/14/22 04/14/22 10:00 10:15 Temperature Temperature [ Post-Procedure] Pulse Rate Pulse Rate [ 79 77 Post-Procedure] Respiratory Rate Respiratory 21 20 Rate [Post- Procedure] Blood Pressure Blood Pressure 89/62 90/57 [Post-Procedure ] O2 Sat by Pulse Oximetry O2 Sat by Pulse 99 99 Oximetry [Post -Procedure] - Labs CBC & Chem 7: 04/14/22 00:06 04/14/22 00:06 Labs: Abnormal lab results 04/13/22 04/13/22 04/14/22 Range/Units 13:00 16:00 00:06 WBC 16.6 H (4.5-11.0) K/mm3 RDW 17.1 H (13.2-15.2) % Lymph % (Auto) 3.6 L (13.4-35.0) % [place] % (Auto) 8.6 H (0.0-7.3) % Lymph # (Auto) 0.6 L (1.2-5.4) K/mm3 [place] # (Auto) 1.4 H (0.0-0.8) K/mm3 Seg Neutrophils % 87.5 H (40.0-70.0) % Seg Neutrophils # 14.6 H (1.8-7.7) K/mm3 Sodium (137-145) mmol/L Carbon Dioxide (22-30) mmol/L BUN (9-20) mg/dL Glucose (75-100) mg/dL Urine Creatinine 75.0 H (0.1-20.0) mg/dL Vancomycin Trough 21.3 H (5.0-20.0) ug/mL 04/14/22 Range/Units 00:06 WBC (4.5-11.0) K/mm3 RDW (13.2-15.2) % Lymph % (Auto) (13.4-35.0) % [place] % (Auto) (0.0-7.3) % Lymph # (Auto) (1.2-5.4) K/mm3 [place] # (Auto) (0.0-0.8) K/mm3 Seg Neutrophils % (40.0-70.0) % Seg Neutrophils # (1.8-7.7) K/mm3 Sodium 136 L (137-145) mmol/L Carbon Dioxide 21 L (22-30) mmol/L BUN 33 H (9-20) mg/dL Glucose 135 H (75-100) mg/dL Urine Creatinine (0.1-20.0) mg/dL Vancomycin Trough (5.0-20.0) ug/mL Medications & Allergies - Medications Allergies/Adverse Reactions: Allergies No Known Allergies Allergy (Verified 04/10/22 14:10) Home Medications: Home Medications Medication Instructions Recorded Confirmed Last Taken Type carvediloL [Coreg] 25 mg PO BID 30 Days #60 tablet 04/06/22 04/14/22 04/12/22 Rx Acetaminophen [Acetaminophen TAB] 650 mg PO Q4H PRN tablet 04/14/22 Unknown Rx Apixaban [Eliquis] 5 mg PO BID tablet 04/14/22 Unknown Rx AtorvaSTATin 10 mg PO QHS tablet 04/14/22 Unknown Rx Benzocaine 20% Topical Temple 3 spray MM PREOP packet 04/14/22 Unknown Rx [Hurricaine One 20% Topical Temple] Calcium Carbonate [Tums 500MG CHEW] 500 mg PO Q4H PRN tablet 04/14/22 Unknown Rx Midodrine [Proamatine] 10 mg PO TID@0800,1200,1600 tablet 04/14/22 Unknown Rx Sennosides/Docusate [Senokot S] 1 tab PO QHS tablet 04/14/22 Unknown Rx oxyCODONE /ACETAMINOPHEN [Percocet 1 tab PO Q4H PRN tablet 04/14/22 Unknown Rx 5/325 mg] Active Medications: Generic Name Dose Route Start Last Admin Trade Name Freq PRN Reason Stop Dose Admin Acetaminophen 650 mg 04/10/22 21:09 Acetaminophen 325 Mg Tab PO Q4H PRN Pain MILD(1-3)/Fever >100.5/PEREZ Apixaban 5 mg 04/10/22 22:00 04/13/22 21:21 Apixaban 5 Mg Tab PO 5 mg BID SARAH Administration Atorvastatin Calcium 10 mg 04/10/22 22:00 04/13/22 21:21 Atorvastatin 10 Mg Tab PO 10 mg QHS SARAH Administration Benzocaine 3 spray 04/14/22 09:00 04/14/22 08:47 Benzocaine 20% Top Temple 0.5 Ml Unit Dose MM 04/14/22 11:00 3 spray PREOP NR Administration Calcium Carbonate/Glycine 500 mg 04/12/22 14:00 Calcium Carbonate 500 Mg Tab Chew PO Q4H PRN Indigestion Cefazolin Sodium 2 gm/ Sodium 100 mls @ 200 mls/hr 04/13/22 15:00 04/14/22 00:13 Chloride IV 200 mls/hr Q8H SARAH Administration Protocol Sodium Chloride 1,000 mls @ 150 mls/hr 04/14/22 09:00 04/14/22 08:30 Nacl 0.9% 1000 Ml IV 150 mls/hr DIRECT SARAH Administration Dobutamine HCl/Dextrose 500 mg in 250 mls @ 7.838 mls/hr 04/14/22 10:00 Dobutrex Drip 500mg/D5w 250ml IV DIRECT SARAH Protocol 2.5 MCG/KG/MIN Metoclopramide HCl 10 mg 04/10/22 21:09 Metoclopramide 10 Mg/2 Ml Inj IV Q6H PRN Nausea And Vomiting Midodrine 10 mg 04/11/22 16:00 04/13/22 16:02 Midodrine 10 Mg Tab PO 10 mg TID@0800,1200,1600 SARAH Administration Morphine Sulfate 2 mg 04/10/22 21:09 04/14/22 03:45 Morphine 2 Mg/1 Ml Inj IV 2 mg Q4H PRN Administration Pain, Moderate (4-6) Ondansetron HCl 4 mg 04/10/22 21:09 Ondansetron 4 Mg/2 Ml Inj IV Q3H PRN Nausea And Vomiting Oxycodone/Acetaminophen 1 tab 04/11/22 21:38 04/13/22 22:35 Oxycodone /Acetaminophen 5-325mg Tab PO 1 tab Q4H PRN Administration Pain, Moderate (4-6) Senna/Docusate Sodium 1 tab 04/12/22 22:00 04/13/22 21:21 Sennosides/Docusate Sodium 8.6/50 Mg Tab PO 1 tab QHS SARAH Administration Sodium Chloride 10 ml 04/10/22 22:00 04/14/22 07:54 Sodium Chloride 0.9% 10 Ml Flush Syringe IV Not Given BID SARAH Sodium Chloride 10 ml 04/10/22 21:09 Sodium Chloride 0.9% 10 Ml Flush Syringe IV PRN PRN LINE FLUSH HEART Score - HEART Score Troponin: Troponin T 0.016 ng/mL (0.00-0.029) 04/11/22 16:37
--- NOTE | 2022-04-14 10:38 | Progress Note ---
Assessment and Plan Pt is a 46-year-old AA male with a hx of HFrEF/NICMP (EF 10-15%), PAFlutter (on Eliquis), CHB s/p PPM ([employer]), bioprosthetic MV, TV repair, and HTN who presented with complaints of generalized weakness, fever/chills, abdominal pain, N/V, and diarrhea. Abd Pain / Diarrhea Endocarditis Sepsis Shock (septic +/- cardiogenic) HFrEF / NICMP KAYLIN Hyponatremia PAFlutter (on Eliquis 5mg BID) S/p [place] Occlusion (11/2016) H/o Severe MR s/p Bioprosthetic MV (11/2016) S/p TV Repair/Ring Annuloplasty (11/2016) H/o CHB s/p PPM ([employer]) H/o HTN Liver Disease/Chronic Jaundice H/o EtOH Abuse H/o Tobacco Abuse Limited echo 04/13/2022-EF 10 to 15%. Severe global hypokinesis of left ventricle. Device is present in right atrium. Device lead is present in right ventricle. Right ventricle is moderately hypokinetic PRATIMA 04/14/2022-EF 10 to 15% severe global hypokinesis of left ventricle. No thrombus noted in LV. Right ventricle severely hypokinetic. Device lead is present in right ventricle. No vegetations. Device lead is present in right atrium. No vegetations no left atrial appendage with normal left pulmonary vein. Saline bubble study did not demonstrate PFO. Mitral valve vegetation is present on bioprosthetic mitral valve. Bioprosthetic mitral valve present. No tricuspid valve vegetations. No pulmonic valve vegetations. No aortic valvular vegetation. Echo 04/01/2022: EF 10 to 15%. Left ventricle is mildly dilated. Severe global hypokinesis of left ventricle. Left ventricular end-diastolic pressure is elevated. Right ventricle is dilated. Right ventricle is hypokinetic. Device lead is present in right ventricle. Left atrium is mildly dilated. Right atrium is dilated. Bioprosthetic mitral valve is present. Mild to moderate tricuspid regurgitation. RVSP 41mmHg. Echo 05/2018: EF 15-20%, LA and RA dilated, RV dilated and hypokinetic, pacemaker electrode in right sided chambers, bioprosthetic valve in mitral position functioning normally, mod AR, no , mod TR, pulm HTN RVSP 65mmHg. Lexiscan MPI stress test 10/2018: Negative for ischemia, EF 15%. Outpatient Medications: carvedilol 25 mg p.o. twice daily, Entresto 24-26 mg p.o. twice daily, Lasix 40 mg p.o. twice daily, Aldactone 25 mg p.o daily, Eliquis for anticoagulation. Plan: PRATIMA this a.m. showed mitral valve vegetation is present on bioprosthetic mitral valve Patient to be transferred to [facility] for further evaluation and management. Dr. Saunders is the accepting physician Will initiate low-dose dobutamine drip to help increase forward output GDMT for HF on hold in the setting of shock and hypotension currently requiring midodrine Pt reports compliance with OAC as an outpatient. Anticoagulated on Eliquis COVID-19 neg x 1. Discussed plan of care with patient who verbalized understanding and acknowledgment Pt seen in conjunction with Dr. Holman, who agrees with the assessment and plan of care. - Patient Problems (1) Sepsis Current Visit: Yes Status: Acute Qualifiers: Severe sepsis shock status: with septic shock (2) Shock Current Visit: Yes Status: Acute (3) Cardiac pacemaker in situ Current Visit: Yes Status: Chronic (4) H/O tricuspid valve repair Current Visit: Yes Status: Chronic (5) HFrEF (heart failure with reduced ejection fraction) Current Visit: Yes Status: Chronic (6) History of mitral valve replacement with bioprosthetic valve Current Visit: Yes Status: Chronic (7) Hyperbilirubinemia Current Visit: Yes Status: Chronic (8) Nonischemic cardiomyopathy Current Visit: Yes Status: Chronic (9) Paroxysmal atrial flutter Current Visit: Yes Status: Chronic (10) Abdominal pain Current Visit: No Status: Acute (11) AICD (automatic cardioverter/defibrillator) present Current Visit: No Status: Chronic (12) Endocarditis Current Visit: Yes Status: Acute Subjective Date of service: 04/14/22 Principal diagnosis: Sepsis Interval history: Patient for PRATIMA today Paced rhythm 70s Objective Vital Signs Temp Temp Pulse Pulse Pulse Resp Resp 04/14/22 10:15 77 20 04/14/22 10:00 79 21 04/14/22 09:45 84 19 04/14/22 09:30 85 20 04/14/22 09:15 88 21 07/19/22 09:10 99.2 F 89 20 04/14/22 04:00 70 04/14/22 03:43 97.4 F L 68 20 04/14/22 00:18 97.8 F 67 18 04/14/22 00:00 70 04/13/22 23:35 20 04/13/22 22:27 72 20 04/13/22 21:30 73 10 L 04/13/22 21:21 73 11 L 04/13/22 21:11 68 12 04/13/22 21:05 04/13/22 21:00 69 12 04/13/22 20:51 70 18 04/13/22 20:41 70 18 04/13/22 20:30 74 17 04/13/22 20:22 97.5 F L 04/13/22 20:21 85 17 04/13/22 20:11 73 15 04/13/22 20:00 97.2 F L 67 71 13 04/13/22 19:51 69 13 04/13/22 19:41 69 13 04/13/22 19:35 72 16 04/13/22 19:11 68 11 L 04/13/22 19:00 68 13 04/13/22 18:51 68 16 04/13/22 18:41 69 13 04/13/22 18:30 72 04/13/22 18:21 81 18 04/13/22 18:11 66 11 L 04/13/22 18:00 66 29 H 04/13/22 17:51 67 14 04/13/22 17:41 65 19 04/13/22 17:30 65 14 04/13/22 17:21 65 13 04/13/22 17:11 64 13 04/13/22 17:01 65 14 04/13/22 16:51 62 8 L 04/13/22 16:41 70 13 04/13/22 16:30 63 16 04/13/22 16:21 64 16 04/13/22 16:11 64 14 04/13/22 16:01 63 21 04/13/22 16:00 97.6 F 65 64 15 04/13/22 15:51 63 13 04/13/22 15:41 63 12 04/13/22 15:30 62 13 04/13/22 15:21 63 16 04/13/22 15:11 63 16 04/13/22 15:00 63 12 04/13/22 14:51 64 10 L 04/13/22 14:41 65 16 04/13/22 14:30 69 7 L 04/13/22 14:21 62 12 04/13/22 14:11 71 14 04/13/22 14:00 64 12 04/13/22 13:51 65 13 04/13/22 13:41 65 13 04/13/22 13:30 63 16 04/13/22 13:21 64 10 L 04/13/22 13:11 70 15 04/13/22 13:01 64 11 L 04/13/22 12:51 65 18 04/13/22 12:41 65 10 L 04/13/22 12:30 65 15 04/13/22 12:21 72 13 04/13/22 12:11 70 21 04/13/22 12:01 67 12 04/13/22 12:00 97.4 F L 70 74 16 04/13/22 11:57 66 12 04/13/22 11:21 63 9 L 04/13/22 11:11 63 12 04/13/22 11:01 63 15 04/13/22 10:51 63 12 04/13/22 10:41 64 14 BP BP Pulse Ox Pulse Ox 04/14/22 10:15 90/57 99 04/14/22 10:00 89/62 99 04/14/22 09:45 89/68 99 04/14/22 09:30 113/63 99 04/14/22 09:15 103/66 100 04/14/22 09:10 99/63 100 04/14/22 04:00 04/14/22 03:43 139/81 88 04/14/22 00:18 94/56 94 04/14/22 00:00 97 04/13/22 23:35 04/13/22 22:27 105/73 98 04/13/22 21:30 93/62 97 04/13/22 21:21 93/62 99 04/13/22 21:11 98/75 95 04/13/22 21:05 96 04/13/22 21:00 98/75 96 04/13/22 20:51 109/70 97 04/13/22 20:41 105/75 96 04/13/22 20:30 105/75 99 04/1322 20:22 071822 20:21 107/75 87 18 20:11 102/63 97 04/13/22 20:00 111/71 98 04/13/22 19:51 113/74 81 L 04/13/22 19:41 120/81 98 18 19:35 120/81 100 18 19:11 102/67 97 04/13/22 19:00 102/67 96 04/13/22 18:51 103/56 98 1822 18:41 110/75 100 04/13/22 18:30 110/75 04/13/22 18:21 107/66 97 04/13/22 18:11 102/65 98 04/13/22 18:00 102/65 96 04/13/22 17:51 94/72 100 04/13/22 17:41 91/67 93 18 17:30 91/67 86 04/13/22 17:21 102/66 92 04/13/22 17:11 105/51 97 18 17:01 105/51 97 04/13/22 16:51 91/61 97 04/13/22 16:41 105/72 98 04/13/22 16:30 105/72 98 04/13/22 16:21 98/68 98 04/13/22 16:11 110/62 98 04/13/22 16:01 94/72 98 18 16:00 98 04/13/22 15:51 94/72 95 18 15:41 109/70 95 22 15:30 102/77 90 1822 15:21 109/70 96 04/13/22 15:11 96/69 97 18 15:00 96/69 97 04/13/22 14:51 110/65 97 18 14:41 92/69 95 1822 14:30 92/69 96 1822 14:21 101/62 95 1822 14:11 104/59 97 1822 14:00 104/59 95 1822 13:51 99/68 96 1822 13:41 92/61 95 04/13/22 13:30 92/61 93 04/13/22 13:21 94/62 98 04/13/22 13:11 87/52 04/13/22 13:01 109/70 04/13/22 12:51 109/70 04/13/22 12:41 109/76 04/13/22 12:30 109/76 04/13/22 12:21 111/49 04/13/22 12:11 130/41 04/13/22 12:01 108/74 98 04/13/22 12:00 96 04/13/22 11:57 108/74 99 04/13/22 11:21 108/74 98 04/13/22 11:11 100/71 96 04/13/22 11:01 100/71 94 04/13/22 10:51 110/75 95 04/13/22 10:41 108/74 98 - Physical Examination General: No Apparent Distress HEENT: Positive: EOMI, Jaundice, Normocephaly Neck: Positive: neck supple, trachea midline. Negative: JVD/HJR Cardiac: Positive: Reg Rate and Rhythm Lungs: Positive: Normal Breath Sounds Neuro: Positive: Grossly Intact Abdomen: Positive: Tender, Distended Skin: Negative: Rash Musculoskeletal: No Pain Extremities: Present: upper extr. pulses, edema (trace BLE), warm - Labs and Meds CBC 04/14/22 Range/Units 00:06 WBC 16.6 H (4.5-11.0) K/mm3 RBC 4.58 (3.65-5.03) M/mm3 Hgb 12.9 (11.8-15.2) gm/dl Hct 39.3 (35.5-45.6) % Plt Count 196 (140-440) K/mm3 Lymph # (Auto) 0.6 L (1.2-5.4) K/mm3 [place] # (Auto) 1.4 H (0.0-0.8) K/mm3 Eos # (Auto) 0.0 (0.0-0.4) K/mm3 Baso # (Auto) 0.0 (0.0-0.1) K/mm3 Comprehensive Metabolic Panel 04/14/22 Range/Units 00:06 Sodium 136 L (137-145) mmol/L Potassium 4.8 (3.6-5.0) mmol/L Chloride 101.2 (98-107) mmol/L Carbon Dioxide 21 L (22-30) mmol/L BUN 33 H (9-20) mg/dL Creatinine 0.8 (0.8-1.3) mg/dL Glucose 135 H (75-100) mg/dL Calcium 8.6 (8.4-10.2) mg/dL - Imaging and Cardiology EKG: report reviewed, image reviewed Echo: report reviewed - Telemetry EKG Rhythm: Paced Pacemaker: ventricular pacing w/capt
--- NOTE | 2022-04-14 10:40 | Post Anesthesia Evaluation ---
- Post Anesthesia Evaluation Patient Participated: Yes Airway Patent: Yes Stable Respiratory Function: Yes Nausea/Vomiting: No Temp > 96.8F: Yes Pain Manageable: Yes Adequeate Hydration: Yes Anesthesia Complications: No
--- NOTE | 2022-04-14 11:18 | Progress Note ---
Assessment and Plan Cultures: Blood culture 04/10/2022 MSSA A/P: 46-year-old man past medical history nonischemic cardiomyopathy with low ejection fraction, ascites, chronic jaundice, hypertension, pacemaker in place, previous tricuspid and mitral valve replacements #Acute sepsis: With fevers leukocytosis. Secondary to MSSA bacteremia #MSSA bacteremia: Likely skin source. He is extremely high risk for invasive infection given his pacemaker, artificial tricuspid and mitral valves. 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 Recs: -Given presence of endocarditis, stopped Ancef -Started nafcillin -Added gentamicin -Follow-up repeat blood cultures -Would await clearance of blood cultures prior to initiating rifampin -Pending transfer to [place] Thank you for the consult, we will continue to follow. Christie Jefferson MD [facility], [place] [facility] ([facility]) O: [phone] F: [phone] Subjective Date of service: 04/14/22 Principal diagnosis: Sepsis Interval history: Afebrile with low temperatures, white count improving now 16.6. PRATIMA performed this morning. Mitral valve vegetation present on bioprosthetic mitral valve. He is pending transfer to [place] at this point. Objective - Exam Narrative Exam: Physical Exam: Constitutional: Alert, cooperative. No acute distress Head, Ears, Nose: Normocephalic, atraumatic. External ears, nose normal Eyes: Conjunctivae/corneas clear. No icterus. No ptosis. Neck: Supple, no meningeal signs Oral: dentition fair, no thrush Cardiovascular: S1, S2 normal. Respiratory: Good air entry, clear to auscultation bilaterally GI: Soft, non-tender; bowel sounds normal. No peritoneal signs. Musculoskeletal: No pedal edema, no cyanosis. Skin: No rash or abscess Hem/Lymphatic: No palpable cervical or supraclavicular nodes. No lymphangitis Psych: Mood ok. Affect normal Neurological: Awake, alert, oriented. No gross abnormality - Constitutional Vitals: Vital Signs Temp Pulse Resp BP Pulse Ox 99.2 F 77 18 97/65 99 04/14/22 09:10 04/14/22 10:45 04/14/22 10:45 04/14/22 10:45 07/19/22 10:45 Temperature -Last 24 Hours Temperature [Post-Procedure] 99.2 F Temperature 97.4 F Temperature 97.8 F Temperature 97.5 F Temperature 97.2 F Temperature 97.6 F Temperature 97.4 F - Labs CBC & Chem 7: 04/14/22 00:06 04/14/22 00:06 Labs: Abnormal lab results 04/13/22 04/13/22 04/14/22 Range/Units 13:00 16:00 00:06 WBC 16.6 H (4.5-11.0) K/mm3 RDW 17.1 H (13.2-15.2) % Lymph % (Auto) 3.6 L (13.4-35.0) % [place] % (Auto) 8.6 H (0.0-7.3) % Lymph # (Auto) 0.6 L (1.2-5.4) K/mm3 [place] # (Auto) 1.4 H (0.0-0.8) K/mm3 Seg Neutrophils % 87.5 H (40.0-70.0) % Seg Neutrophils # 14.6 H (1.8-7.7) K/mm3 Sodium (137-145) mmol/L Carbon Dioxide (22-30) mmol/L BUN (9-20) mg/dL Glucose (75-100) mg/dL Urine Creatinine 75.0 H (0.1-20.0) mg/dL Vancomycin Trough 21.3 H (5.0-20.0) ug/mL 04/14/22 Range/Units 00:06 WBC (4.5-11.0) K/mm3 RDW (13.2-15.2) % Lymph % (Auto) (13.4-35.0) % [place] % (Auto) (0.0-7.3) % Lymph # (Auto) (1.2-5.4) K/mm3 [place] # (Auto) (0.0-0.8) K/mm3 Seg Neutrophils % (40.0-70.0) % Seg Neutrophils # (1.8-7.7) K/mm3 Sodium 136 L (137-145) mmol/L Carbon Dioxide 21 L (22-30) mmol/L BUN 33 H (9-20) mg/dL Glucose 135 H (75-100) mg/dL Urine Creatinine (0.1-20.0) mg/dL Vancomycin Trough (5.0-20.0) ug/mL
[2022-04-14] MEDS: MIDODRINE 10 MG TAB PO SCH ×3 (11:45→18:50)
[2022-04-14] MEDS: APIXABAN 5 MG TAB PO SCH ×2 (11:46→21:39)
[2022-04-14] MEDS: DOBUTamine/D5W 500 MG/250 ML 500 MG/250 ML BAG IV SCH (11:47)
[2022-04-14] MEDS: GENTAMICIN/NS 80 MG/100 ML 100 ML IV SCH ×3 (16:39→20:55)
[2022-04-14] MEDS: NAFCILLIN 2 GM in SODIUM CHLORIDE 0.9% 100 ML IV SCH ×3 (16:39→23:06)
[2022-04-14] MEDS: SENNOSIDES/DOCUSATE SODIUM 8.6/50 MG TAB PO SCH (21:39)
[2022-04-15] MEDS: NAFCILLIN 2 GM in SODIUM CHLORIDE 0.9% 100 ML IV SCH ×5 (02:07→21:50)
[2022-04-15] MEDS: GENTAMICIN/NS 80 MG/100 ML 100 ML IV SCH ×3 (04:59→21:04)
--- NOTE | 2022-04-15 10:05 | Progress Note ---
Assessment and Plan Assessment and plan: 46-year-old man past medical history nonischemic cardiomyopathy with low ejection fraction, ascites, chronic jaundice, hypertension, pacemaker in place, previous tricuspid and mitral valve replacements Sepsis. Patient meets criteria with the fever, leukocytosis and diagnosis of MSSA bacteremia. MSSA bacteremia Prosthetic valve endocarditis Ischemic cardiomyopathy KAYLIN 04/14/2022. Echocardiogram reveals endocarditis. Patient on Ancef. ID consulted. Patient is pending transfer to [facility]. 04/15/2022. ID discontinue Ancef and started nafcillin as well as gentamicin. We will follow-up repeat blood cultures. ID wants to await clearance of blood cultures prior to initiating rifampin. Patient pending transfer to [place]. History Interval history: No new issues overnight Hospitalist Physical - Constitutional Vitals: Temp Pulse Resp BP Pulse Ox 97.8 F 53 L 18 133/90 100 04/15/22 07:43 04/15/22 07:43 04/15/22 03:50 04/15/22 07:43 04/15/22 07:43 General appearance: Present: no acute distress, well-nourished - EENT Eyes: Present: PERRL, EOM intact ENT: hearing intact, clear oral mucosa, dentition normal - Neck Neck: Present: supple, normal ROM - Respiratory Respiratory effort: normal Respiratory: bilateral: CTA - Cardiovascular Rhythm: regular Heart Sounds: Present: S1 & S2. Absent: gallop, rub - Extremities Extremities: no ischemia, No edema, Full ROM - Abdominal General gastrointestinal: soft, non-tender, non-distended, normal bowel sounds - Integumentary Integumentary: Present: clear, warm, dry - Neurologic Neurologic: CNII-XII intact, moves all extremities HEART Score - HEART Score Troponin: Troponin T 0.016 ng/mL (0.00-0.029) 04/11/22 16:37 Results - Labs CBC & Chem 7: 04/14/22 00:06 04/14/22 00:06 Labs: Laboratory Last Values WBC 16.6 K/mm3 (4.5-11.0) H 04/14/22 00:06 RBC 4.58 M/mm3 (3.65-5.03) 04/14/22 00:06 Hgb 12.9 gm/dl (11.8-15.2) 04/14/22 00:06 Hct 39.3 % (35.5-45.6) 04/14/22 00:06 MCV 86 fl (84-94) 04/14/22 00:06 MCH 28 pg (28-32) 04/14/22 00:06 MCHC 33 % (32-34) 04/14/22 00:06 RDW 17.1 % (13.2-15.2) H 04/14/22 00:06 Plt Count 196 K/mm3 (140-440) 04/14/22 00:06 Lymph % (Auto) 3.6 % (13.4-35.0) L 04/14/22 00:06 Shelby % (Auto) 8.6 % (0.0-7.3) H 04/14/22 00:06 Eos % (Auto) 0.1 % (0.0-4.3) 04/14/22 00:06 Baso % (Auto) 0.2 % (0.0-1.8) 04/14/22 00:06 Lymph # (Auto) 0.6 K/mm3 (1.2-5.4) L 04/14/22 00:06 Shelby # (Auto) 1.4 K/mm3 (0.0-0.8) H 04/14/22 00:06 Eos # (Auto) 0.0 K/mm3 (0.0-0.4) 04/14/22 00:06 Baso # (Auto) 0.0 K/mm3 (0.0-0.1) 04/14/22 00:06 Add Manual Diff Complete 04/12/22 04:09 Total Counted 100 04/12/22 04:09 Seg Neutrophils % 87.5 % (40.0-70.0) H 04/14/22 00:06 Seg Neuts % (Manual) 95.0 % (40.0-70.0) H 04/12/22 04:09 Band Neutrophils % 0 % 04/12/22 04:09 Lymphocytes % (Manual) 1.0 % (13.4-35.0) L 04/12/22 04:09 Reactive Lymphs % (Man) 0 % 04/12/22 04:09 Monocytes % (Manual) 4.0 % (0.0-7.3) 04/12/22 04:09 Eosinophils % (Manual) 0 % (0.0-4.3) 04/12/22 04:09 Basophils % (Manual) 0 % (0.0-1.8) 04/12/22 04:09 Metamyelocytes % 0 % 04/12/22 04:09 Myelocytes % 0 % 04/12/22 04:09 Promyelocytes % 0 % 04/12/22 04:09 Blast Cells % 0 % 04/12/22 04:09 Nucleated RBC % Not Reportable 04/12/22 04:09 Seg Neutrophils # 14.6 K/mm3 (1.8-7.7) H 04/14/22 00:06 Seg Neutrophils # Man 23.0 K/mm3 (1.8-7.7) H 04/12/22 04:09 Band Neutrophils # 0.0 K/mm3 04/12/22 04:09 Lymphocytes # (Manual) 0.2 K/mm3 (1.2-5.4) L 04/12/22 04:09 Abs React Lymphs (Man) 0.0 K/mm3 04/12/22 04:09 Monocytes # (Manual) 1.0 K/mm3 (0.0-0.8) H 04/12/22 04:09 Eosinophils # (Manual) 0.0 K/mm3 (0.0-0.4) 04/12/22 04:09 Basophils # (Manual) 0.0 K/mm3 (0.0-0.1) 04/12/22 04:09 Metamyelocytes # 0.0 K/mm3 04/12/22 04:09 Myelocytes # 0.0 K/mm3 04/12/22 04:09 Promyelocytes # 0.0 K/mm3 04/12/22 04:09 Blast Cells # 0.0 K/mm3 04/12/22 04:09 WBC Morphology Not Reportable 04/12/22 04:09 Hypersegmented Neuts Not Reportable 04/12/22 04:09 Hyposegmented Neuts Not Reportable 04/12/22 04:09 Hypogranular Neuts Not Reportable 04/12/22 04:09 Smudge Cells Not Reportable 04/12/22 04:09 Toxic Granulation Not Reportable 04/12/22 04:09 Toxic Vacuolation Not Reportable 04/12/22 04:09 Dohle Bodies Not Reportable 04/12/22 04:09 Pelger-Huet Anomaly Not Reportable 04/12/22 04:09 Gray Rods Not Reportable 04/12/22 04:09 Platelet Estimate Consistent w auto 04/12/22 04:09 Clumped Platelets Not Reportable 04/12/22 04:09 Plt Clumps, EDTA Not Reportable 04/12/22 04:09 Large Platelets Not Reportable 04/12/22 04:09 Giant Platelets Not Reportable 04/12/22 04:09 Platelet Satelliting Not Reportable 04/12/22 04:09 Plt Morphology Comment Not Reportable 04/12/22 04:09 RBC Morphology Not Reportable 04/12/22 04:09 Dimorphic RBCs Not Reportable 04/12/22 04:09 Polychromasia Not Reportable 04/12/22 04:09 Hypochromasia Not Reportable 04/12/22 04:09 Poikilocytosis Not Reportable 04/12/22 04:09 Anisocytosis 1+ 04/12/22 04:09 Microcytosis Not Reportable 04/12/22 04:09 Macrocytosis Not Reportable 04/12/22 04:09 Spherocytes Not Reportable 04/12/22 04:09 Pappenheimer Bodies Not Reportable 04/12/22 04:09 Sickle Cells Not Reportable 04/12/22 04:09 Target Cells Not Reportable 04/12/22 04:09 Tear Drop Cells Not Reportable 04/12/22 04:09 Ovalocytes Not Reportable 04/12/22 04:09 Helmet Cells Not Reportable 04/12/22 04:09 [place] Bodies Not Reportable 04/12/22 04:09 [place] Rings Not Reportable 04/12/22 04:09 [place] Cells Not Reportable 04/12/22 04:09 Bite Cells Not Reportable 04/12/22 04:09 Crenated Cell Not Reportable 04/12/22 04:09 Elliptocytes Not Reportable 04/12/22 04:09 Acanthocytes (Spur) Not Reportable 04/12/22 04:09 Rouleaux Not Reportable 04/12/22 04:09 Hemoglobin C Crystals Not Reportable 04/12/22 04:09 Schistocytes Not Reportable 04/12/22 04:09 Malaria parasites Not Reportable 04/12/22 04:09 Shubham Bodies Not Reportable 04/12/22 04:09 Hem Pathologist Commnt No 04/12/22 04:09 PT 20.5 Sec. (12.2-14.9) H 04/10/22 18:14 INR 1.51 (0.87-1.13) H 04/10/22 18:14 D-Dimer 1939.20 ng/mlDDU (0-234) H 04/10/22 21:28 Sodium 136 mmol/L (137-145) L 04/14/22 00:06 Potassium 4.8 mmol/L (3.6-5.0) 04/14/22 00:06 Chloride 101.2 mmol/L (98-107) 04/14/22 00:06 Carbon Dioxide 21 mmol/L (22-30) L 04/14/22 00:06 Anion Gap 19 mmol/L 04/14/22 00:06 BUN 33 mg/dL (9-20) H 04/14/22 00:06 Creatinine 0.8 mg/dL (0.8-1.3) 04/14/22 00:06 Estimated GFR > 60 ml/min 04/14/22 00:06 BUN/Creatinine Ratio 41 % 04/14/22 00:06 Glucose 135 mg/dL (75-100) H 04/14/22 00:06 Lactic Acid 2.70 mmol/L (0.7-2.0) H* 04/10/22 18:14 Calcium 8.6 mg/dL (8.4-10.2) 04/14/22 00:06 Magnesium 2.20 mg/dL (1.7-2.3) 04/12/22 04:09 Ferritin 186.3 ng/mL (30.0-300.0) 04/10/22 21:28 Total Bilirubin 17.40 mg/dL (0.1-1.2) H 04/13/22 04:27 Direct Bilirubin 11.8 mg/dL (0-0.2) H 04/13/22 04:27 Indirect Bilirubin 5.6 mg/dL 04/13/22 04:27 AST 29 units/L (5-40) 04/13/22 04:27 ALT 33 units/L (7-56) 04/13/22 04:27 Alkaline Phosphatase 114 units/L (35-129) 04/13/22 04:27 Lactate Dehydrogenase 310 units/L (91-180) H 04/10/22 21:28 Total Creatine Kinase 268 units/L (55-170) H 04/10/22 18:14 Troponin T 0.016 ng/mL (0.00-0.029) 04/11/22 16:37 C-Reactive Protein 15.60 mg/dL (0.00-1.30) H 04/10/22 21:28 NT-Pro-B Natriuret Pep > 08280 pg/mL (0-450) H 04/10/22 18:14 Total Protein 6.1 g/dL (6.3-8.2) L 04/13/22 04:27 Albumin 3.0 g/dL (3.9-5) L 04/13/22 04:27 Albumin/Globulin Ratio 1.0 % 04/13/22 04:27 Lipase 19 units/L (13-60) 04/10/22 18:14 Procalcitonin 46.51 ng/mL (<0.15) 04/10/22 21:28 Urine Creatinine 75.0 mg/dL (0.1-20.0) H 04/13/22 16:00 Urine Sodium 12 mmol/L 04/13/22 16:00 Vancomycin Trough 21.3 ug/mL (5.0-20.0) H 04/13/22 13:00 SARS-CoV-2 (PCR) Negative (Negative) 04/11/22 11:55 Microbiology: Microbiology 04/13/22 23:30 Peripheral/Venous Blood Culture - Preliminary NO GROWTH AFTER 24 HOURS 04/14/22 06:58 Peripheral/Venous Blood Culture - Preliminary Culture in Progress Carvajal/IV: Voiding Method Urinal Active Medications - Current Medications Current Medications: Generic Name Dose Route Start Last Admin Trade Name Freq PRN Reason Stop Dose Admin Acetaminophen 650 mg 04/10/22 21:09 Acetaminophen 325 Mg Tab PO Q4H PRN Pain MILD(1-3)/Fever >100.5/EPREZ Apixaban 5 mg 04/10/22 22:00 04/14/22 21:39 Apixaban 5 Mg Tab PO 5 mg BID SARAH Administration Atorvastatin Calcium 10 mg 04/10/22 22:00 04/14/22 21:39 Atorvastatin 10 Mg Tab PO 10 mg QHS SARAH Administration Calcium Carbonate/Glycine 500 mg 04/12/22 14:00 Calcium Carbonate 500 Mg Tab Chew PO Q4H PRN Indigestion Sodium Chloride 1,000 mls @ 150 mls/hr 04/14/22 09:00 04/14/22 08:30 Nacl 0.9% 1000 Ml IV 150 mls/hr DIRECT SARAH Administration Dobutamine HCl/Dextrose 500 mg in 250 mls @ 7.838 mls/hr 04/14/22 10:00 04/14/22 11:47 Dobutrex Drip 500mg/D5w 250ml IV 2.5 mcg/kg/min DIRECT SARAH 7.838 mls/hr Administration Protocol 2.5 MCG/KG/MIN Nafcillin Sodium 2 gm/ Sodium 100 mls @ 100 mls/30 min 04/14/22 13:00 04/15/22 05:42 Chloride IV 100 mls/30 min Q4H SARAH Administration Protocol Gentamicin Sulfate/Sodium Chloride 100 mls @ 200 mls/hr 04/14/22 12:30 04/15/22 04:59 Gentamicin/Ns 80 Mg/100 Ml IV 200 mls/hr Q8H SARAH Administration Metoclopramide HCl 10 mg 04/10/22 21:09 Metoclopramide 10 Mg/2 Ml Inj IV Q6H PRN Nausea And Vomiting Midodrine 10 mg 04/11/22 16:00 04/14/22 18:50 Midodrine 10 Mg Tab PO 10 mg TID@0800,1200,1600 SARAH Administration Morphine Sulfate 2 mg 04/10/22 21:09 04/14/22 03:45 Morphine 2 Mg/1 Ml Inj IV 2 mg Q4H PRN Administration Pain, Moderate (4-6) Ondansetron HCl 4 mg 04/10/22 21:09 Ondansetron 4 Mg/2 Ml Inj IV Q3H PRN Nausea And Vomiting Oxycodone/Acetaminophen 1 tab 04/11/22 21:38 04/13/22 22:35 Oxycodone /Acetaminophen 5-325mg Tab PO 1 tab Q4H PRN Administration Pain, Moderate (4-6) Senna/Docusate Sodium 1 tab 04/12/22 22:00 04/14/22 21:39 Sennosides/Docusate Sodium 8.6/50 Mg Tab PO 1 tab QHS SARAH Administration Sodium Chloride 10 ml 04/10/22 22:00 04/14/22 21:44 Sodium Chloride 0.9% 10 Ml Flush Syringe IV 10 ml BID SARAH Administration Sodium Chloride 10 ml 04/10/22 21:09 Sodium Chloride 0.9% 10 Ml Flush Syringe IV PRN PRN LINE FLUSH
--- NOTE | 2022-04-15 10:30 | Progress Note ---
Assessment and Plan Pt is a 46-year-old AA male with a hx of HFrEF/NICMP (EF 10-15%), PAFlutter (on Eliquis), CHB s/p PPM ([employer]tronic), bioprosthetic MV, TV repair, and HTN who presented with complaints of generalized weakness, fever/chills, abdominal pain, N/V, and diarrhea. Abd Pain / Diarrhea Endocarditis-ID following Sepsis Shock (septic +/- cardiogenic) HFrEF / NICMP KAYLIN Hyponatremia PAFlutter (on Eliquis 5mg BID) S/p DENVER Occlusion (11/2016) H/o Severe MR s/p Bioprosthetic MV (11/2016) S/p TV Repair/Ring Annuloplasty (11/2016) H/o CHB s/p PPM ([employer]tronic) H/o HTN Liver Disease/Chronic Jaundice H/o EtOH Abuse H/o Tobacco Abuse Limited echo 04/13/2022-EF 10 to 15%. Severe global hypokinesis of left ventricle. Device is present in right atrium. Device lead is present in right ventricle. Right ventricle is moderately hypokinetic PRATIMA 04/14/2022-EF 10 to 15% severe global hypokinesis of left ventricle. No thrombus noted in LV. Right ventricle severely hypokinetic. Device lead is present in right ventricle. No vegetations. Device lead is present in right atrium. No vegetations no left atrial appendage with normal left pulmonary vein. Saline bubble study did not demonstrate PFO. Mitral valve vegetation is present on bioprosthetic mitral valve. Bioprosthetic mitral valve present. No tricuspid valve vegetations. No pulmonic valve vegetations. No aortic valvular vegetation. Echo 04/01/2022: EF 10 to 15%. Left ventricle is mildly dilated. Severe global hypokinesis of left ventricle. Left ventricular end-diastolic pressure is elevated. Right ventricle is dilated. Right ventricle is hypokinetic. Device lead is present in right ventricle. Left atrium is mildly dilated. Right atrium is dilated. Bioprosthetic mitral valve is present. Mild to moderate tricuspid regurgitation. RVSP 41mmHg. Echo 05/2018: EF 15-20%, LA and RA dilated, RV dilated and hypokinetic, pacemaker electrode in right sided chambers, bioprosthetic valve in mitral position functioning normally, mod AR, no , mod TR, pulm HTN RVSP 65mmHg. Lexiscan MPI stress test 10/2018: Negative for ischemia, EF 15%. Outpatient Medications: carvedilol 25 mg p.o. twice daily, Entresto 24-26 mg p.o. twice daily, Lasix 40 mg p.o. twice daily, Aldactone 25 mg p.o daily, Eliquis for anticoagulation. Plan: Patient awaiting transferred to [place] for further evaluation and management. Dr Srini Saunders is the accepting physician Continue dobutamine drip to help increase forward output GDMT for HF on hold in the setting of shock and hypotension currently requiring midodrine Anticoagulated on Eliquis Patient reports right sided flank pain will order CT angio of ABD/pelvis to rule out septic emboli Discussed plan of care with patient who verbalized understanding and acknowledgment Pt seen in conjunction with Dr. Minaya, who agrees with the assessment and plan of care. - Patient Problems (1) Sepsis Current Visit: Yes Status: Acute Qualifiers: Severe sepsis shock status: with septic shock (2) Shock Current Visit: Yes Status: Acute (3) Cardiac pacemaker in situ Current Visit: Yes Status: Chronic (4) H/O tricuspid valve repair Current Visit: Yes Status: Chronic (5) HFrEF (heart failure with reduced ejection fraction) Current Visit: Yes Status: Chronic (6) History of mitral valve replacement with bioprosthetic valve Current Visit: Yes Status: Chronic (7) Hyperbilirubinemia Current Visit: Yes Status: Chronic (8) Nonischemic cardiomyopathy Current Visit: Yes Status: Chronic (9) Paroxysmal atrial flutter Current Visit: Yes Status: Chronic (10) Abdominal pain Current Visit: No Status: Acute (11) AICD (automatic cardioverter/defibrillator) present Current Visit: No Status: Chronic (12) Endocarditis Current Visit: Yes Status: Acute Subjective Date of service: 04/15/22 Principal diagnosis: Sepsis Interval history: Patient restingin bed in no acute distress. Patient reports feeling weak and states right sided flank pain Paced rhythm 80s Objective Vital Signs Temp Pulse Pulse Resp Resp BP BP 04/15/22 07:43 97.8 F 53 L 133/90 04/15/22 07:36 99.2 F 93 H 115/72 04/15/22 03:50 99.6 F 86 18 111/64 04/14/22 23:43 98.0 F 83 19 100/60 04/14/22 22:00 04/14/22 20:28 98.0 F 83 18 100/52 04/14/22 16:53 04/14/22 16:07 97.9 F 97 H 104/55 04/14/22 13:00 132 H 04/14/22 11:53 97.9 F 132 H 199/108 04/14/22 11:51 98.3 F 79 92/59 04/14/22 10:45 77 18 97/65 04/14/22 10:30 77 19 100/58 Pulse Ox Pulse Ox 04/15/22 07:43 100 04/15/22 07:36 94 04/15/22 03:50 95 04/14/22 23:43 97 04/14/22 22:00 99 04/14/22 20:28 99 04/14/22 16:53 98 04/14/22 16:07 91 04/14/22 13:00 04/14/22 11:53 97 04/14/22 11:51 95 04/14/22 10:45 99 04/14/22 10:30 99 - Physical Examination General: No Apparent Distress HEENT: Positive: EOMI, Jaundice, Normocephaly Neck: Positive: neck supple, trachea midline. Negative: JVD/HJR Cardiac: Positive: Reg Rate and Rhythm Lungs: Positive: Normal Breath Sounds Neuro: Positive: Grossly Intact Abdomen: Positive: Distended Skin: Negative: Rash Musculoskeletal: No Pain Extremities: Present: upper extr. pulses, edema (trace BLE), warm - Imaging and Cardiology EKG: report reviewed, image reviewed Echo: report reviewed - Telemetry EKG Rhythm: Paced Pacemaker: ventricular pacing w/capt
[2022-04-15] MEDS: MIDODRINE 10 MG TAB PO SCH ×3 (10:59→19:44)
[2022-04-15] MEDS: APIXABAN 5 MG TAB PO SCH ×2 (11:01→21:54)
[2022-04-15] MEDS: MORPHINE 2 MG/1 ML INJ IV PRN (11:01)
--- NOTE | 2022-04-15 12:39 | Cat Scan Report ---
CTA ABDOMEN AND PELVIS WITHOUT AND WITH CONTRAST INDICATION / CLINICAL INFORMATION: r/o septic emboli. TECHNIQUE: Axial CT images were obtained through the abdomen and pelvis before and after after inject ion of 100 cc of Omnipaque 350 IV contrast. 3 plane MIP / 3D reconstructions were produced. All CT sc ans at this location are performed using CT dose reduction for ALARA by means of automated exposure c ontrol. COMPARISON: 04/01/2022 LOWER CHEST: No significant abnormality. AORTA / ARTERIES: No significant abnormality. IVC / VEINS: No significant abnormality. LYMPH NODES: No significant adenopathy. COLON: No significant abnormality. APPENDIX: No significant abnormality. STOMACH / SMALL BOWEL: No significant abnormality. PERITONEUM: Small amount of free fluid within the abdomen. No free air. No fluid collection. LIVER: No significant abnormality. GALLBLADDER: Uncomplicated cholelithiasis BILE DUCTS: No significant abnormality. PANCREAS: No significant abnormality. SPLEEN: No significant abnormality. ADRENALS: No significant abnormality. RIGHT KIDNEY / URETER: No significant abnormality. LEFT KIDNEY / URETER: No significant abnormality. URINARY BLADDER: No significant abnormality. REPRODUCTIVE ORGANS: Significant abnormality. SKELETAL SYSTEM: Scattered degeneration. ADDITIONAL FINDINGS: There is mild subcutaneous edema throughout the visualized soft tissues. IMPRESSION: 1. No CT findings to suggest septic emboli. 2. Subcutaneous edema and small amount of intra-abdominal ascites. Signer Name: Bret Larios DO Signed: 04/15/2022 12:35 PM Workstation Name: [id number]
[2022-04-15 14:55] LABS: Blood Urea Nitrogen 21 mg/dL (9-20); Hemolysis Index 12
[2022-04-15 15:21] LABS: BUN/Creatinine Ratio 30
--- NOTE | 2022-04-15 18:01 | Progress Note ---
Assessment and Plan Cultures: Blood culture 04/10/2022 MSSA A/P: 46-year-old man past medical history nonischemic cardiomyopathy with low ejection fraction, ascites, chronic jaundice, hypertension, pacemaker in place, previous tricuspid and mitral valve replacements #Acute sepsis: With fevers leukocytosis. Secondary to MSSA bacteremia #MSSA bacteremia: Likely skin source. He is extremely high risk for invasive infection given his pacemaker, artificial tricuspid and mitral valves. 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 Recs: -Continue nafcillin -Added gentamicin -Follow-up repeat blood cultures -Would await clearance of blood cultures prior to initiating rifampin -Pending transfer to [place] Thank you for the consult, we will continue to follow. Christie Jefferson MD [facility] O: [phone] F: [phone] Subjective Date of service: 04/15/22 Principal diagnosis: Sepsis Interval history: Afebrile, white count improving now 16.6. Review blood cultures negative after 24 hours. Imaging personally reviewed: Abdo pelvis CTA: No evidence septic emboli. Objective - Exam Narrative Exam: Physical Exam: Constitutional: Alert, cooperative. No acute distress Head, Ears, Nose: Normocephalic, atraumatic. External ears, nose normal Eyes: Conjunctivae/corneas clear. No icterus. No ptosis. Neck: Supple, no meningeal signs Oral: dentition fair, no thrush Cardiovascular: S1, S2 normal. Respiratory: Good air entry, clear to auscultation bilaterally GI: Soft, non-tender; bowel sounds normal. No peritoneal signs. Musculoskeletal: No pedal edema, no cyanosis. Skin: No rash or abscess Hem/Lymphatic: No palpable cervical or supraclavicular nodes. No lymphangitis Psych: Mood ok. Affect normal Neurological: Awake, alert, oriented. No gross abnormality - Constitutional Vitals: Vital Signs Temp Pulse Resp BP Pulse Ox 98.2 F 88 18 115/71 96 04/15/22 16:03 04/15/22 16:03 04/15/22 03:50 04/15/22 16:03 04/15/22 16:03 Temperature -Last 24 Hours Temperature 98.2 F Temperature 98.2 F Temperature 97.8 F Temperature 99.2 F Temperature 99.6 F Temperature 98.0 F Temperature 98.0 F - Labs CBC & Chem 7: 04/14/22 00:06 04/15/22 13:55 Labs: Abnormal lab results 04/15/22 Range/Units 13:55 Sodium 130 L (137-145) mmol/L Carbon Dioxide 21 L (22-30) mmol/L BUN 21 H (9-20) mg/dL Creatinine 0.7 L (0.8-1.3) mg/dL Glucose 160 H (75-100) mg/dL Calcium 8.0 L (8.4-10.2) mg/dL
[2022-04-15] MEDS: DOBUTamine/D5W 500 MG/250 ML 500 MG/250 ML BAG IV SCH (20:59)
[2022-04-15] MEDS: SENNOSIDES/DOCUSATE SODIUM 8.6/50 MG TAB PO SCH (21:53)
[2022-04-16] MEDS: NAFCILLIN 2 GM in SODIUM CHLORIDE 0.9% 100 ML IV SCH ×6 (01:45→21:03)
[2022-04-16] MEDS: GENTAMICIN/NS 80 MG/100 ML 100 ML IV SCH ×3 (04:11→21:03)
--- NOTE | 2022-04-16 09:55 | Progress Note ---
Assessment and Plan Assessment and plan: 46-year-old man past medical history nonischemic cardiomyopathy with low ejection fraction, ascites, chronic jaundice, hypertension, pacemaker in place, previous tricuspid and mitral valve replacements Sepsis. Patient meets criteria with the fever, leukocytosis and diagnosis of MSSA bacteremia. MSSA bacteremia Prosthetic valve endocarditis Ischemic cardiomyopathy KAYLIN 04/14/2022. Echocardiogram reveals endocarditis. Patient on Ancef. ID consulted. Patient is pending transfer to [facility]. 04/15/2022. ID discontinue Ancef and started nafcillin as well as gentamicin. We will follow-up repeat blood cultures. ID wants to await clearance of blood cultures prior to initiating rifampin. Patient pending transfer to [place]. 04/16/2022. Patient complains of right lower back and buttocks pain. Pain is reproducible with palpation. I suspect patient has sacroiliitis. We will start tramadol. CT scan showed no evidence of embolic disease. Await transfer to [place] for treatment of endocarditis History Interval history: No new issues overnight Hospitalist Physical - Constitutional Vitals: Temp Pulse Resp BP Pulse Ox 98.1 F 84 18 115/80 95 04/16/22 07:46 04/16/22 07:46 04/16/22 07:46 04/16/22 07:46 04/16/22 07:46 General appearance: Present: no acute distress, well-nourished - EENT Eyes: Present: PERRL, EOM intact ENT: hearing intact, clear oral mucosa, dentition normal - Neck Neck: Present: supple, normal ROM - Respiratory Respiratory effort: normal Respiratory: bilateral: CTA - Cardiovascular Rhythm: regular Heart Sounds: Present: S1 & S2. Absent: gallop, rub - Extremities Extremities: no ischemia, No edema, Full ROM - Abdominal General gastrointestinal: soft, non-tender, non-distended, normal bowel sounds - Integumentary Integumentary: Present: clear, warm, dry - Neurologic Neurologic: CNII-XII intact, moves all extremities HEART Score - HEART Score Troponin: Troponin T 0.016 ng/mL (0.00-0.029) 04/11/22 16:37 Results - Labs CBC & Chem 7: 04/14/22 00:06 04/15/22 13:55 Labs: Laboratory Last Values WBC 16.6 K/mm3 (4.5-11.0) H 07/19/22 00:06 RBC 4.58 M/mm3 (3.65-5.03) 04/14/22 00:06 Hgb 12.9 gm/dl (11.8-15.2) 04/14/22 00:06 Hct 39.3 % (35.5-45.6) 04/14/22 00:06 MCV 86 fl (84-94) 04/14/22 00:06 MCH 28 pg (28-32) 04/14/22 00:06 MCHC 33 % (32-34) 04/14/22 00:06 RDW 17.1 % (13.2-15.2) H 04/14/22 00:06 Plt Count 196 K/mm3 (140-440) 04/14/22 00:06 Lymph % (Auto) 3.6 % (13.4-35.0) L 04/14/22 00:06 [place] % (Auto) 8.6 % (0.0-7.3) H 04/14/22 00:06 Eos % (Auto) 0.1 % (0.0-4.3) 04/14/22 00:06 Baso % (Auto) 0.2 % (0.0-1.8) 04/14/22 00:06 Lymph # (Auto) 0.6 K/mm3 (1.2-5.4) L 04/14/22 00:06 [place] # (Auto) 1.4 K/mm3 (0.0-0.8) H 04/14/22 00:06 Eos # (Auto) 0.0 K/mm3 (0.0-0.4) 04/14/22 00:06 Baso # (Auto) 0.0 K/mm3 (0.0-0.1) 04/14/22 00:06 Add Manual Diff Complete 04/12/22 04:09 Total Counted 100 04/12/22 04:09 Seg Neutrophils % 87.5 % (40.0-70.0) H 04/14/22 00:06 Seg Neuts % (Manual) 95.0 % (40.0-70.0) H 04/12/22 04:09 Band Neutrophils % 0 % 04/12/22 04:09 Lymphocytes % (Manual) 1.0 % (13.4-35.0) L 04/12/22 04:09 Reactive Lymphs % (Man) 0 % 04/12/22 04:09 Monocytes % (Manual) 4.0 % (0.0-7.3) 04/12/22 04:09 Eosinophils % (Manual) 0 % (0.0-4.3) 04/12/22 04:09 Basophils % (Manual) 0 % (0.0-1.8) 04/12/22 04:09 Metamyelocytes % 0 % 04/12/22 04:09 Myelocytes % 0 % 04/12/22 04:09 Promyelocytes % 0 % 04/12/22 04:09 Blast Cells % 0 % 04/12/22 04:09 Nucleated RBC % Not Reportable 04/12/22 04:09 Seg Neutrophils # 14.6 K/mm3 (1.8-7.7) H 04/14/22 00:06 Seg Neutrophils # Man 23.0 K/mm3 (1.8-7.7) H 04/12/22 04:09 Band Neutrophils # 0.0 K/mm3 04/12/22 04:09 Lymphocytes # (Manual) 0.2 K/mm3 (1.2-5.4) L 04/12/22 04:09 Abs React Lymphs (Man) 0.0 K/mm3 04/12/22 04:09 Monocytes # (Manual) 1.0 K/mm3 (0.0-0.8) H 04/12/22 04:09 Eosinophils # (Manual) 0.0 K/mm3 (0.0-0.4) 04/12/22 04:09 Basophils # (Manual) 0.0 K/mm3 (0.0-0.1) 04/12/22 04:09 Metamyelocytes # 0.0 K/mm3 04/12/22 04:09 Myelocytes # 0.0 K/mm3 04/12/22 04:09 Promyelocytes # 0.0 K/mm3 04/12/22 04:09 Blast Cells # 0.0 K/mm3 04/12/22 04:09 WBC Morphology Not Reportable 04/12/22 04:09 Hypersegmented Neuts Not Reportable 04/12/22 04:09 Hyposegmented Neuts Not Reportable 04/12/22 04:09 Hypogranular Neuts Not Reportable 04/12/22 04:09 Smudge Cells Not Reportable 04/12/22 04:09 Toxic Granulation Not Reportable 04/12/22 04:09 Toxic Vacuolation Not Reportable 04/12/22 04:09 Dohle Bodies Not Reportable 04/12/22 04:09 Pelger-Huet Anomaly Not Reportable 04/12/22 04:09 Gray Rods Not Reportable 04/12/22 04:09 Platelet Estimate Consistent w auto 04/12/22 04:09 Clumped Platelets Not Reportable 04/12/22 04:09 Plt Clumps, EDTA Not Reportable 04/12/22 04:09 Large Platelets Not Reportable 04/12/22 04:09 Giant Platelets Not Reportable 04/12/22 04:09 Platelet Satelliting Not Reportable 04/12/22 04:09 Plt Morphology Comment Not Reportable 04/12/22 04:09 RBC Morphology Not Reportable 04/12/22 04:09 Dimorphic RBCs Not Reportable 04/12/22 04:09 Polychromasia Not Reportable 04/12/22 04:09 Hypochromasia Not Reportable 04/12/22 04:09 Poikilocytosis Not Reportable 04/12/22 04:09 Anisocytosis 1+ 04/12/22 04:09 Microcytosis Not Reportable 04/12/22 04:09 Macrocytosis Not Reportable 04/12/22 04:09 Spherocytes Not Reportable 04/12/22 04:09 Pappenheimer Bodies Not Reportable 04/12/22 04:09 Sickle Cells Not Reportable 04/12/22 04:09 Target Cells Not Reportable 04/12/22 04:09 Tear Drop Cells Not Reportable 04/12/22 04:09 Ovalocytes Not Reportable 04/12/22 04:09 Helmet Cells Not Reportable 04/12/22 04:09 Bains-Aynor Bodies Not Reportable 04/12/22 04:09 [place] Rings Not Reportable 04/12/22 04:09 [place] Cells Not Reportable 04/12/22 04:09 Bite Cells Not Reportable 04/12/22 04:09 Crenated Cell Not Reportable 04/12/22 04:09 Elliptocytes Not Reportable 04/12/22 04:09 Acanthocytes (Spur) Not Reportable 04/12/22 04:09 Rouleaux Not Reportable 04/12/22 04:09 Hemoglobin C Crystals Not Reportable 04/12/22 04:09 Schistocytes Not Reportable 04/12/22 04:09 Malaria parasites Not Reportable 04/12/22 04:09 Shubham Bodies Not Reportable 04/12/22 04:09 Hem Pathologist Commnt No 04/12/22 04:09 PT 20.5 Sec. (12.2-14.9) H 04/10/22 18:14 INR 1.51 (0.87-1.13) H 04/10/22 18:14 D-Dimer 1939.20 ng/mlDDU (0-234) H 04/10/22 21:28 Sodium 130 mmol/L (137-145) L 04/15/22 13:55 Potassium 4.1 mmol/L (3.6-5.0) 04/15/22 13:55 Chloride 98.7 mmol/L (98-107) 04/15/22 13:55 Carbon Dioxide 21 mmol/L (22-30) L 04/15/22 13:55 Anion Gap 14 mmol/L 04/15/22 13:55 BUN 21 mg/dL (9-20) H 04/15/22 13:55 Creatinine 0.7 mg/dL (0.8-1.3) L 04/15/22 13:55 Estimated GFR > 60 ml/min 04/15/22 13:55 BUN/Creatinine Ratio 30 % 04/15/22 13:55 Glucose 160 mg/dL (75-100) H 04/15/22 13:55 Lactic Acid 2.70 mmol/L (0.7-2.0) H* 04/10/22 18:14 Calcium 8.0 mg/dL (8.4-10.2) L 04/15/22 13:55 Magnesium 2.20 mg/dL (1.7-2.3) 04/12/22 04:09 Ferritin 186.3 ng/mL (30.0-300.0) 04/10/22 21:28 Total Bilirubin 17.40 mg/dL (0.1-1.2) H 04/13/22 04:27 Direct Bilirubin 11.8 mg/dL (0-0.2) H 04/13/22 04:27 Indirect Bilirubin 5.6 mg/dL 04/13/22 04:27 AST 29 units/L (5-40) 04/13/22 04:27 ALT 33 units/L (7-56) 04/13/22 04:27 Alkaline Phosphatase 114 units/L (35-129) 04/13/22 04:27 Lactate Dehydrogenase 310 units/L (91-180) H 04/10/22 21:28 Total Creatine Kinase 268 units/L (55-170) H 04/10/22 18:14 Troponin T 0.016 ng/mL (0.00-0.029) 04/11/22 16:37 C-Reactive Protein 15.60 mg/dL (0.00-1.30) H 04/10/22 21:28 NT-Pro-B Natriuret Pep > 56178 pg/mL (0-450) H 04/10/22 18:14 Total Protein 6.1 g/dL (6.3-8.2) L 04/13/22 04:27 Albumin 3.0 g/dL (3.9-5) L 04/13/22 04:27 Albumin/Globulin Ratio 1.0 % 04/13/22 04:27 Lipase 19 units/L (13-60) 04/10/22 18:14 Procalcitonin 46.51 ng/mL (<0.15) 04/10/22 21:28 Urine Creatinine 75.0 mg/dL (0.1-20.0) H 04/13/22 16:00 Urine Sodium 12 mmol/L 04/13/22 16:00 Vancomycin Trough 21.3 ug/mL (5.0-20.0) H 04/13/22 13:00 SARS-CoV-2 (PCR) Negative (Negative) 04/11/22 11:55 Microbiology: Microbiology 04/13/22 23:30 Peripheral/Venous Blood Culture - Preliminary NO GROWTH AFTER 48 HOURS 04/14/22 06:58 Peripheral/Venous Blood Culture - Preliminary NO GROWTH AFTER 24 HOURS Carvajal/IV: Voiding Method Urinal Active Medications - Current Medications Current Medications: Generic Name Dose Route Start Last Admin Trade Name Freq PRN Reason Stop Dose Admin Acetaminophen 650 mg 04/10/22 21:09 Acetaminophen 325 Mg Tab PO Q4H PRN Pain MILD(1-3)/Fever >100.5/PEREZ Apixaban 5 mg 04/10/22 22:00 04/15/22 21:54 Apixaban 5 Mg Tab PO 5 mg BID SARAH Administration Atorvastatin Calcium 10 mg 04/10/22 22:00 04/15/22 21:54 Atorvastatin 10 Mg Tab PO 10 mg QHS SARAH Administration Calcium Carbonate/Glycine 500 mg 04/12/22 14:00 Calcium Carbonate 500 Mg Tab Chew PO Q4H PRN Indigestion Sodium Chloride 1,000 mls @ 150 mls/hr 04/14/22 09:00 04/14/22 08:30 Nacl 0.9% 1000 Ml IV 150 mls/hr DIRECT SARAH Administration Dobutamine HCl/Dextrose 500 mg in 250 mls @ 7.838 mls/hr 04/14/22 10:00 04/15/22 20:59 Dobutrex Drip 500mg/D5w 250ml IV 2.5 mcg/kg/min DIRECT SARAH 7.838 mls/hr Administration Protocol 2.5 MCG/KG/MIN Nafcillin Sodium 2 gm/ Sodium 100 mls @ 100 mls/30 min 04/14/22 13:00 04/16/22 04:47 Chloride IV 100 mls/30 min Q4H SARAH Administration Protocol Gentamicin Sulfate/Sodium Chloride 100 mls @ 200 mls/hr 04/14/22 12:30 04/16/22 04:11 Gentamicin/Ns 80 Mg/100 Ml IV 200 mls/hr Q8H SARAH Administration Metoclopramide HCl 10 mg 04/10/22 21:09 Metoclopramide 10 Mg/2 Ml Inj IV Q6H PRN Nausea And Vomiting Midodrine 10 mg 04/11/22 16:00 04/15/22 19:44 Midodrine 10 Mg Tab PO Not Given TID@0800,1200,1600 SARAH Morphine Sulfate 2 mg 04/10/22 21:09 04/15/22 11:01 Morphine 2 Mg/1 Ml Inj IV 2 mg Q4H PRN Administration Pain, Moderate (4-6) Ondansetron HCl 4 mg 04/10/22 21:09 04/15/22 11:01 Ondansetron 4 Mg/2 Ml Inj IV 4 mg Q3H PRN Administration Nausea And Vomiting Oxycodone/Acetaminophen 1 tab 04/11/22 21:38 04/13/22 22:35 Oxycodone /Acetaminophen 5-325mg Tab PO 1 tab Q4H PRN Administration Pain, Moderate (4-6) Senna/Docusate Sodium 1 tab 04/12/22 22:00 04/15/22 21:53 Sennosides/Docusate Sodium 8.6/50 Mg Tab PO 1 tab QHS SARAH Administration Sodium Chloride 10 ml 04/10/22 22:00 04/15/22 21:08 Sodium Chloride 0.9% 10 Ml Flush Syringe IV 10 ml BID SARAH Administration Sodium Chloride 10 ml 04/10/22 21:09 Sodium Chloride 0.9% 10 Ml Flush Syringe IV PRN PRN LINE FLUSH
[2022-04-16] MEDS ORDERED: FUROSEMIDE 40 MG/4 ML INJ IV SCH (10:09)
--- NOTE | 2022-04-16 10:18 | Progress Note ---
Assessment and Plan Pt is a 46-year-old AA male with a hx of HFrEF/NICMP (EF 10-15%), PAFlutter (on Eliquis), CHB s/p PPM ([employer]tr[employer]), bioprosthetic MV, TV repair, and HTN who presented with complaints of generalized weakness, fever/chills, abdominal pain, N/V, and diarrhea. Abd Pain / Diarrhea Endocarditis-ID following Sepsis Shock (septic +/- cardiogenic) HFrEF / NICMP KAYLIN Hyponatremia PAFlutter (on Eliquis 5mg BID) S/p DENVER Occlusion (11/2016) H/o Severe MR s/p Bioprosthetic MV (11/2016) S/p TV Repair/Ring Annuloplasty (11/2016) H/o CHB s/p PPM ([employer]tronic) H/o HTN Liver Disease/Chronic Jaundice H/o EtOH Abuse H/o Tobacco Abuse Limited echo 04/13/2022-EF 10 to 15%. Severe global hypokinesis of left ventricle. Device is present in right atrium. Device lead is present in right ventricle. Right ventricle is moderately hypokinetic PRATIMA 04/14/2022-EF 10 to 15% severe global hypokinesis of left ventricle. No thrombus noted in LV. Right ventricle severely hypokinetic. Device lead is present in right ventricle. No vegetations. Device lead is present in right atrium. No vegetations no left atrial appendage with normal left pulmonary vein. Saline bubble study did not demonstrate PFO. Mitral valve vegetation is present on bioprosthetic mitral valve. Bioprosthetic mitral valve present. No tricuspid valve vegetations. No pulmonic valve vegetations. No aortic valvular vegetation. Echo 04/01/2022: EF 10 to 15%. Left ventricle is mildly dilated. Severe global hypokinesis of left ventricle. Left ventricular end-diastolic pressure is elevated. Right ventricle is dilated. Right ventricle is hypokinetic. Device lead is present in right ventricle. Left atrium is mildly dilated. Right atrium is dilated. Bioprosthetic mitral valve is present. Mild to moderate tricuspid regurgitation. RVSP 41mmHg. Echo 05/2018: EF 15-20%, LA and RA dilated, RV dilated and hypokinetic, pacemaker electrode in right sided chambers, bioprosthetic valve in mitral position functioning normally, mod AR, no , mod TR, pulm HTN RVSP 65mmHg. Lexiscan MPI stress test 10/2018: Negative for ischemia, EF 15%. Outpatient Medications: carvedilol 25 mg p.o. twice daily, Entresto 24-26 mg p.o. twice daily, Lasix 40 mg p.o. twice daily, Aldactone 25 mg p.o daily, Eliquis for anticoagulation. Plan: Patient awaiting transferred to [place] for further evaluation and management. Dr Srini Saunders is the accepting physician Continue dobutamine drip to help increase forward output GDMT for HF on hold in the setting of shock and hypotension currently requiring midodrine Anticoagulated on Eliquis CTA abd/ pelvis showed no speticp emboli or acute processes Patient does have rhonda edema in BLE. Will initiate lasix 40mg IV once Discussed plan of care with patient who verbalized understanding and acknowledgment Pt seen in conjunction with Dr. Minaya, who agrees with the assessment and plan of care. - Patient Problems (1) Sepsis Current Visit: Yes Status: Acute Qualifiers: Severe sepsis shock status: with septic shock (2) Shock Current Visit: Yes Status: Acute (3) Cardiac pacemaker in situ Current Visit: Yes Status: Chronic (4) H/O tricuspid valve repair Current Visit: Yes Status: Chronic (5) HFrEF (heart failure with reduced ejection fraction) Current Visit: Yes Status: Chronic (6) History of mitral valve replacement with bioprosthetic valve Current Visit: Yes Status: Chronic (7) Hyperbilirubinemia Current Visit: Yes Status: Chronic (8) Nonischemic cardiomyopathy Current Visit: Yes Status: Chronic (9) Paroxysmal atrial flutter Current Visit: Yes Status: Chronic (10) Abdominal pain Current Visit: No Status: Acute (11) AICD (automatic cardioverter/defibrillator) present Current Visit: No Status: Chronic (12) Endocarditis Current Visit: Yes Status: Acute Subjective Date of service: 04/16/22 Principal diagnosis: Sepsis Interval history: Patient resting in bed in no acute distress. Patient continue to report right sided flank pain Paced rhythm 80s Objective Vital Signs Temp Pulse Resp BP Pulse Ox 04/16/22 07:46 98.1 F 84 18 115/80 95 04/16/22 04:09 98.2 F 91 H 18 104/73 96 04/16/22 00:10 98.3 F 89 18 100/67 96 04/15/22 22:00 96 04/15/22 20:42 92 H 96 04/15/22 20:40 98.5 F 18 107/69 04/15/22 16:03 98.2 F 88 115/71 96 04/15/22 11:36 98.2 F 85 94/61 97 - Physical Examination General: No Apparent Distress HEENT: Positive: EOMI, Jaundice, Normocephaly Neck: Positive: neck supple, trachea midline. Negative: JVD/HJR Cardiac: Positive: Reg Rate and Rhythm Lungs: Positive: Normal Breath Sounds Neuro: Positive: Grossly Intact Abdomen: Positive: Distended Skin: Negative: Rash Musculoskeletal: No Pain Extremities: Present: upper extr. pulses, edema (trace BLE), warm - Labs and Meds Comprehensive Metabolic Panel 04/15/22 Range/Units 13:55 Sodium 130 L (137-145) mmol/L Potassium 4.1 (3.6-5.0) mmol/L Chloride 98.7 (98-107) mmol/L Carbon Dioxide 21 L (22-30) mmol/L BUN 21 H (9-20) mg/dL Creatinine 0.7 L (0.8-1.3) mg/dL Glucose 160 H (75-100) mg/dL Calcium 8.0 L (8.4-10.2) mg/dL - Imaging and Cardiology EKG: report reviewed, image reviewed Echo: report reviewed - Telemetry EKG Rhythm: Paced Pacemaker: ventricular pacing w/capt
--- NOTE | 2022-04-16 10:28 | Progress Note ---
Assessment and Plan Cultures: Blood culture 04/10/2022 MSSA A/P: 46-year-old man past medical history nonischemic cardiomyopathy with low ejection fraction, ascites, chronic jaundice, hypertension, pacemaker in place, previous tricuspid and mitral valve replacements #Acute sepsis: With fevers leukocytosis. Secondary to MSSA bacteremia #MSSA bacteremia: Likely skin source. He is extremely high risk for invasive infection given his pacemaker, artificial tricuspid and mitral valves. 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 Recs: -Continue nafcillin -continue gentamicin dosed per pharmacy -Follow-up repeat blood cultures -Would await clearance of blood cultures prior to initiating rifampin -Pending transfer to [place] Thank you for the consult, we will continue to follow. Christie Jefferson MD [facility] ([facility]) O: [phone] F: [phone] Subjective Date of service: 04/16/22 Principal diagnosis: Sepsis Interval history: Afebrile, white count 16.6. Repeat cultures negative so far. Objective - Exam Narrative Exam: Physical Exam: Constitutional: Alert, cooperative. No acute distress Head, Ears, Nose: Normocephalic, atraumatic. External ears, nose normal Eyes: Conjunctivae/corneas clear. No icterus. No ptosis. Neck: Supple, no meningeal signs Oral: dentition fair, no thrush Cardiovascular: S1, S2 normal. Respiratory: Good air entry, clear to auscultation bilaterally GI: Soft, non-tender; bowel sounds normal. No peritoneal signs. Musculoskeletal: No pedal edema, no cyanosis. Skin: No rash or abscess Hem/Lymphatic: No palpable cervical or supraclavicular nodes. No lymphangitis Psych: Mood ok. Affect normal Neurological: Awake, alert, oriented. No gross abnormality - Constitutional Vitals: Vital Signs Temp Pulse Resp BP Pulse Ox 98.1 F 84 18 115/80 95 04/16/22 07:46 04/16/22 07:46 04/16/22 07:46 04/16/22 07:46 04/16/22 07:46 Temperature -Last 24 Hours Temperature 98.1 F Temperature 98.2 F Temperature 98.3 F Temperature 98.5 F Temperature 98.2 F Temperature 98.2 F - Labs CBC & Chem 7: 04/14/22 00:06 04/15/22 13:55 Labs: Abnormal lab results 04/15/22 Range/Units 13:55 Sodium 130 L (137-145) mmol/L Carbon Dioxide 21 L (22-30) mmol/L BUN 21 H (9-20) mg/dL Creatinine 0.7 L (0.8-1.3) mg/dL Glucose 160 H (75-100) mg/dL Calcium 8.0 L (8.4-10.2) mg/dL
[2022-04-16] MEDS ORDERED: traMADol 50 MG TAB PO PRN (10:30)
[2022-04-16] MEDS: APIXABAN 5 MG TAB PO SCH ×2 (10:51→21:03)
[2022-04-16] MEDS: MIDODRINE 10 MG TAB PO SCH ×3 (10:52→17:15)
[2022-04-16] MEDS: SENNOSIDES/DOCUSATE SODIUM 8.6/50 MG TAB PO SCH (21:03)
[2022-04-17] MEDS: NAFCILLIN 2 GM in SODIUM CHLORIDE 0.9% 100 ML IV SCH ×6 (00:35→21:37)
[2022-04-17] MEDS: GENTAMICIN/NS 80 MG/100 ML 100 ML IV SCH ×2 (04:50→13:21)
[2022-04-17] MEDS: DOBUTamine/D5W 500 MG/250 ML 500 MG/250 ML BAG IV SCH (05:40)
[2022-04-17 05:45] LABS: Hematocrit 38.9 % (35.5-45.6); Hemoglobin 12.9 gm/dl (11.8-15.2); Mean Corpuscular HGB Conc 33 % (32-34); Mean Corpuscular Volume 84 fl (84-94); Platelet Count 185 K/mm3 (140-440); Red Blood Count 4.62 M/mm3 (3.65-5.03); Red Cell Distribution Width 17.1 % (13.2-15.2)
[2022-04-17 06:00] LABS: Blood Urea Nitrogen 16 mg/dL (9-20); Calcium 8.3 mg/dL (8.4-10.2); Hemolysis Index 0
[2022-04-17 06:04] LABS: BUN/Creatinine Ratio 27
[2022-04-17] MEDS: MIDODRINE 10 MG TAB PO SCH (09:25)
[2022-04-17] MEDS: APIXABAN 5 MG TAB PO SCH ×2 (09:26→21:37)
--- NOTE | 2022-04-17 10:09 | Progress Note ---
Assessment and Plan Assessment and plan: 46-year-old man past medical history nonischemic cardiomyopathy with low ejection fraction, ascites, chronic jaundice, hypertension, pacemaker in place, previous tricuspid and mitral valve replacements Sepsis. Patient meets criteria with the fever, leukocytosis and diagnosis of MSSA bacteremia. MSSA bacteremia Prosthetic valve endocarditis Ischemic cardiomyopathy KAYLIN Sacroiliitis 04/14/2022. Echocardiogram reveals endocarditis. Patient on Ancef. ID consulted. Patient is pending transfer to [facility]. 04/15/2022. ID discontinue Ancef and started nafcillin as well as gentamicin. We will follow-up repeat blood cultures. ID wants to await clearance of blood cultures prior to initiating rifampin. Patient pending transfer to [facility]. 04/16/2022. Patient complains of right lower back and buttocks pain. Pain is reproducible with palpation. I suspect patient has sacroiliitis. We will start tramadol. CT scan showed no evidence of embolic disease. Await transfer to [facility] for treatment of endocarditis 04/17/2022. Patient up ambulating in the room without any difficulty. Continue tramadol as needed. Continue nafcillin and gentamicin per ID recommendations. Follow-up repeat blood cultures. I personally reached out to the [facility] to check on the status of transfer and we are still awaiting bed availability. History Interval history: No new issues overnight Hospitalist Physical - Constitutional Vitals: Temp Pulse Resp BP Pulse Ox 98.3 F 80 18 124/84 96 04/17/22 07:22 04/17/22 07:22 04/17/22 07:22 04/17/22 07:22 04/17/22 07:22 General appearance: Present: no acute distress, well-nourished - EENT Eyes: Present: PERRL, EOM intact ENT: hearing intact, clear oral mucosa, dentition normal - Neck Neck: Present: supple, normal ROM - Respiratory Respiratory effort: normal Respiratory: bilateral: CTA - Cardiovascular Rhythm: regular Heart Sounds: Present: S1 & S2. Absent: gallop, rub - Extremities Extremities: no ischemia, No edema, Full ROM - Abdominal General gastrointestinal: soft, non-tender, non-distended, normal bowel sounds - Integumentary Integumentary: Present: clear, warm, dry - Neurologic Neurologic: CNII-XII intact, moves all extremities HEART Score - HEART Score Troponin: Troponin T 0.016 ng/mL (0.00-0.029) 04/11/22 16:37 Results - Labs CBC & Chem 7: 04/17/22 04:29 04/17/22 04:29 Labs: Laboratory Last Values WBC 9.9 K/mm3 (4.5-11.0) 04/17/22 04:29 RBC 4.62 M/mm3 (3.65-5.03) 04/17/22 04:29 Hgb 12.9 gm/dl (11.8-15.2) 04/17/22 04:29 Hct 38.9 % (35.5-45.6) 04/17/22 04:29 MCV 84 fl (84-94) 04/17/22 04:29 MCH 28 pg (28-32) 04/17/22 04:29 MCHC 33 % (32-34) 04/17/22 04:29 RDW 17.1 % (13.2-15.2) H 04/17/22 04:29 Plt Count 185 K/mm3 (140-440) 04/17/22 04:29 Lymph % (Auto) 3.6 % (13.4-35.0) L 04/14/22 00:06 Harper % (Auto) 8.6 % (0.0-7.3) H 04/14/22 00:06 Eos % (Auto) 0.1 % (0.0-4.3) 04/14/22 00:06 Baso % (Auto) 0.2 % (0.0-1.8) 04/14/22 00:06 Lymph # (Auto) 0.6 K/mm3 (1.2-5.4) L 04/14/22 00:06 Harper # (Auto) 1.4 K/mm3 (0.0-0.8) H 04/14/22 00:06 Eos # (Auto) 0.0 K/mm3 (0.0-0.4) 04/14/22 00:06 Baso # (Auto) 0.0 K/mm3 (0.0-0.1) 04/14/22 00:06 Add Manual Diff Complete 04/12/22 04:09 Total Counted 100 04/12/22 04:09 Seg Neutrophils % 87.5 % (40.0-70.0) H 04/14/22 00:06 Seg Neuts % (Manual) 95.0 % (40.0-70.0) H 04/12/22 04:09 Band Neutrophils % 0 % 04/12/22 04:09 Lymphocytes % (Manual) 1.0 % (13.4-35.0) L 04/12/22 04:09 Reactive Lymphs % (Man) 0 % 04/12/22 04:09 Monocytes % (Manual) 4.0 % (0.0-7.3) 04/12/22 04:09 Eosinophils % (Manual) 0 % (0.0-4.3) 04/12/22 04:09 Basophils % (Manual) 0 % (0.0-1.8) 04/12/22 04:09 Metamyelocytes % 0 % 04/12/22 04:09 Myelocytes % 0 % 04/12/22 04:09 Promyelocytes % 0 % 04/12/22 04:09 Blast Cells % 0 % 04/12/22 04:09 Nucleated RBC % Not Reportable 04/12/22 04:09 Seg Neutrophils # 14.6 K/mm3 (1.8-7.7) H 04/14/22 00:06 Seg Neutrophils # Man 23.0 K/mm3 (1.8-7.7) H 04/12/22 04:09 Band Neutrophils # 0.0 K/mm3 04/12/22 04:09 Lymphocytes # (Manual) 0.2 K/mm3 (1.2-5.4) L 04/12/22 04:09 Abs React Lymphs (Man) 0.0 K/mm3 04/12/22 04:09 Monocytes # (Manual) 1.0 K/mm3 (0.0-0.8) H 04/12/22 04:09 Eosinophils # (Manual) 0.0 K/mm3 (0.0-0.4) 04/12/22 04:09 Basophils # (Manual) 0.0 K/mm3 (0.0-0.1) 04/12/22 04:09 Metamyelocytes # 0.0 K/mm3 04/12/22 04:09 Myelocytes # 0.0 K/mm3 04/12/22 04:09 Promyelocytes # 0.0 K/mm3 04/12/22 04:09 Blast Cells # 0.0 K/mm3 04/12/22 04:09 WBC Morphology Not Reportable 04/12/22 04:09 Hypersegmented Neuts Not Reportable 04/12/22 04:09 Hyposegmented Neuts Not Reportable 04/12/22 04:09 Hypogranular Neuts Not Reportable 04/12/22 04:09 Smudge Cells Not Reportable 04/12/22 04:09 Toxic Granulation Not Reportable 04/12/22 04:09 Toxic Vacuolation Not Reportable 04/12/22 04:09 Dohle Bodies Not Reportable 04/12/22 04:09 Pelger-Huet Anomaly Not Reportable 04/12/22 04:09 Gray Rods Not Reportable 04/12/22 04:09 Platelet Estimate Consistent w auto 04/12/22 04:09 Clumped Platelets Not Reportable 04/12/22 04:09 Plt Clumps, EDTA Not Reportable 04/12/22 04:09 Large Platelets Not Reportable 04/12/22 04:09 Giant Platelets Not Reportable 04/12/22 04:09 Platelet Satelliting Not Reportable 04/12/22 04:09 Plt Morphology Comment Not Reportable 04/12/22 04:09 RBC Morphology Not Reportable 04/12/22 04:09 Dimorphic RBCs Not Reportable 04/12/22 04:09 Polychromasia Not Reportable 04/12/22 04:09 Hypochromasia Not Reportable 04/12/22 04:09 Poikilocytosis Not Reportable 04/12/22 04:09 Anisocytosis 1+ 04/12/22 04:09 Microcytosis Not Reportable 04/12/22 04:09 Macrocytosis Not Reportable 04/12/22 04:09 Spherocytes Not Reportable 04/12/22 04:09 Pappenheimer Bodies Not Reportable 04/12/22 04:09 Sickle Cells Not Reportable 04/12/22 04:09 Target Cells Not Reportable 04/12/22 04:09 Tear Drop Cells Not Reportable 04/12/22 04:09 Ovalocytes Not Reportable 04/12/22 04:09 Helmet Cells Not Reportable 04/12/22 04:09 Bains-Balfour Bodies Not Reportable 04/12/22 04:09 [place] Rings Not Reportable 04/12/22 04:09 Julio Cells Not Reportable 04/12/22 04:09 Bite Cells Not Reportable 04/12/22 04:09 Crenated Cell Not Reportable 04/12/22 04:09 Elliptocytes Not Reportable 04/12/22 04:09 Acanthocytes (Spur) Not Reportable 04/12/22 04:09 Rouleaux Not Reportable 04/12/22 04:09 Hemoglobin C Crystals Not Reportable 04/12/22 04:09 Schistocytes Not Reportable 04/12/22 04:09 Malaria parasites Not Reportable 04/12/22 04:09 Shubham Bodies Not Reportable 04/12/22 04:09 Hem Pathologist Commnt No 04/12/22 04:09 PT 20.5 Sec. (12.2-14.9) H 04/10/22 18:14 INR 1.51 (0.87-1.13) H 04/10/22 18:14 D-Dimer 1939.20 ng/mlDDU (0-234) H 04/10/22 21:28 Sodium 134 mmol/L (137-145) L 04/17/22 04:29 Potassium 4.1 mmol/L (3.6-5.0) 04/17/22 04:29 Chloride 98.4 mmol/L (98-107) 04/17/22 04:29 Carbon Dioxide 24 mmol/L (22-30) 04/17/22 04:29 Anion Gap 16 mmol/L 04/17/22 04:29 BUN 16 mg/dL (9-20) 04/17/22 04:29 Creatinine 0.6 mg/dL (0.8-1.3) L 04/17/22 04:29 Estimated GFR > 60 ml/min 04/17/22 04:29 BUN/Creatinine Ratio 27 % 04/17/22 04:29 Glucose 104 mg/dL (75-100) H 04/17/22 04:29 Lactic Acid 2.70 mmol/L (0.7-2.0) H* 04/10/22 18:14 Calcium 8.3 mg/dL (8.4-10.2) L 04/17/22 04:29 Magnesium 2.20 mg/dL (1.7-2.3) 04/12/22 04:09 Ferritin 186.3 ng/mL (30.0-300.0) 04/10/22 21:28 Total Bilirubin 17.40 mg/dL (0.1-1.2) H 04/13/22 04:27 Direct Bilirubin 11.8 mg/dL (0-0.2) H 04/13/22 04:27 Indirect Bilirubin 5.6 mg/dL 04/13/22 04:27 AST 29 units/L (5-40) 04/13/22 04:27 ALT 33 units/L (7-56) 04/13/22 04:27 Alkaline Phosphatase 114 units/L (35-129) 04/13/22 04:27 Lactate Dehydrogenase 310 units/L (91-180) H 04/10/22 21:28 Total Creatine Kinase 268 units/L (55-170) H 04/10/22 18:14 Troponin T 0.016 ng/mL (0.00-0.029) 04/11/22 16:37 C-Reactive Protein 15.60 mg/dL (0.00-1.30) H 04/10/22 21:28 NT-Pro-B Natriuret Pep > 80498 pg/mL (0-450) H 04/10/22 18:14 Total Protein 6.1 g/dL (6.3-8.2) L 04/13/22 04:27 Albumin 3.0 g/dL (3.9-5) L 04/13/22 04:27 Albumin/Globulin Ratio 1.0 % 04/13/22 04:27 Lipase 19 units/L (13-60) 04/10/22 18:14 Procalcitonin 46.51 ng/mL (<0.15) 04/10/22 21:28 Urine Creatinine 75.0 mg/dL (0.1-20.0) H 04/13/22 16:00 Urine Sodium 12 mmol/L 04/13/22 16:00 Gentamicin Trough 1.7 ug/mL (0-2.0) 04/17/22 04:29 Vancomycin Trough 21.3 ug/mL (5.0-20.0) H 04/13/22 13:00 SARS-CoV-2 (PCR) Negative (Negative) 04/11/22 11:55 Microbiology: Microbiology 04/13/22 23:30 Peripheral/Venous Blood Culture - Preliminary NO GROWTH AFTER 72 HOURS 04/14/22 06:58 Peripheral/Venous Blood Culture - Preliminary NO GROWTH AFTER 48 HOURS Carvajal/IV: Voiding Method Urinal Active Medications - Current Medications Current Medications: Generic Name Dose Route Start Last Admin Trade Name Freq PRN Reason Stop Dose Admin Acetaminophen 650 mg 04/10/22 21:09 Acetaminophen 325 Mg Tab PO Q4H PRN Pain MILD(1-3)/Fever >100.5/PEREZ Apixaban 5 mg 04/10/22 22:00 04/17/22 09:26 Apixaban 5 Mg Tab PO 5 mg BID SARAH Administration Atorvastatin Calcium 10 mg 04/10/22 22:00 04/16/22 21:03 Atorvastatin 10 Mg Tab PO 10 mg QHS SARAH Administration Calcium Carbonate/Glycine 500 mg 04/12/22 14:00 Calcium Carbonate 500 Mg Tab Chew PO Q4H PRN Indigestion Sodium Chloride 1,000 mls @ 150 mls/hr 04/14/22 09:00 04/14/22 08:30 Nacl 0.9% 1000 Ml IV 150 mls/hr DIRECT SARAH Administration Dobutamine HCl/Dextrose 500 mg in 250 mls @ 7.838 mls/hr 04/14/22 10:00 04/17/22 05:40 Dobutrex Drip 500mg/D5w 250ml IV 2.5 mcg/kg/min DIRECT SARAH 7.838 mls/hr Administration Protocol 2.5 MCG/KG/MIN Nafcillin Sodium 2 gm/ Sodium 100 mls @ 100 mls/30 min 04/14/22 13:00 04/17/22 04:02 Chloride IV 100 mls/30 min Q4H SARAH Administration Protocol Gentamicin Sulfate/Sodium Chloride 100 mls @ 200 mls/hr 04/14/22 12:30 04/17/22 04:50 Gentamicin/Ns 80 Mg/100 Ml IV 200 mls/hr Q8H SARAH Administration Metoclopramide HCl 10 mg 04/10/22 21:09 Metoclopramide 10 Mg/2 Ml Inj IV Q6H PRN Nausea And Vomiting Midodrine 10 mg 04/11/22 16:00 04/17/22 09:25 Midodrine 10 Mg Tab PO 10 mg TID@0800,1200,1600 SARAH Administration Morphine Sulfate 2 mg 04/10/22 21:09 04/15/22 11:01 Morphine 2 Mg/1 Ml Inj IV 2 mg Q4H PRN Administration Pain, Moderate (4-6) Ondansetron HCl 4 mg 04/10/22 21:09 04/15/22 11:01 Ondansetron 4 Mg/2 Ml Inj IV 4 mg Q3H PRN Administration Nausea And Vomiting Oxycodone/Acetaminophen 1 tab 04/11/22 21:38 04/13/22 22:35 Oxycodone /Acetaminophen 5-325mg Tab PO 1 tab Q4H PRN Administration Pain, Moderate (4-6) Senna/Docusate Sodium 1 tab 04/12/22 22:00 04/16/22 21:03 Sennosides/Docusate Sodium 8.6/50 Mg Tab PO 1 tab QHS SARAH Administration Sodium Chloride 10 ml 04/10/22 22:00 04/16/22 21:04 Sodium Chloride 0.9% 10 Ml Flush Syringe IV 10 ml BID SARAH Administration Sodium Chloride 10 ml 04/10/22 21:09 Sodium Chloride 0.9% 10 Ml Flush Syringe IV PRN PRN LINE FLUSH Tramadol HCl 50 mg 04/16/22 10:30 Tramadol 50 Mg Tab PO Q6H PRN Pain, Moderate (4-6)
[2022-04-17] MEDS ORDERED: MIDODRINE 10 MG TAB PO SCH (11:16)
--- NOTE | 2022-04-17 11:42 | Progress Note ---
Assessment and Plan Pt is a 46-year-old AA male with a hx of HFrEF/NICMP (EF 10-15%), PAFlutter (on Eliquis), CHB s/p PPM ([employer]tr[employer]), bioprosthetic MV, TV repair, and HTN who presented with complaints of generalized weakness, fever/chills, abdominal pain, N/V, and diarrhea. Abd Pain / Diarrhea Endocarditis-ID following Sepsis Shock (septic +/- cardiogenic) HFrEF / NICMP KAYLIN Hyponatremia PAFlutter (on Eliquis 5mg BID) S/p DENVER Occlusion (11/2016) H/o Severe MR s/p Bioprosthetic MV (11/2016) S/p TV Repair/Ring Annuloplasty (11/2016) H/o CHB s/p PPM ([employer]tronic) H/o HTN Liver Disease/Chronic Jaundice H/o EtOH Abuse H/o Tobacco Abuse Limited echo 04/13/2022-EF 10 to 15%. Severe global hypokinesis of left ventricle. Device is present in right atrium. Device lead is present in right ventricle. Right ventricle is moderately hypokinetic PRATIMA 04/14/2022-EF 10 to 15% severe global hypokinesis of left ventricle. No thrombus noted in LV. Right ventricle severely hypokinetic. Device lead is present in right ventricle. No vegetations. Device lead is present in right atrium. No vegetations no left atrial appendage with normal left pulmonary vein. Saline bubble study did not demonstrate PFO. Mitral valve vegetation is present on bioprosthetic mitral valve. Bioprosthetic mitral valve present. No tricuspid valve vegetations. No pulmonic valve vegetations. No aortic valvular vegetation. Echo 04/01/2022: EF 10 to 15%. Left ventricle is mildly dilated. Severe global hypokinesis of left ventricle. Left ventricular end-diastolic pressure is elevated. Right ventricle is dilated. Right ventricle is hypokinetic. Device lead is present in right ventricle. Left atrium is mildly dilated. Right atrium is dilated. Bioprosthetic mitral valve is present. Mild to moderate tricuspid regurgitation. RVSP 41mmHg. Echo 05/2018: EF 15-20%, LA and RA dilated, RV dilated and hypokinetic, pacemaker electrode in right sided chambers, bioprosthetic valve in mitral position functioning normally, mod AR, no , mod TR, pulm HTN RVSP 65mmHg. Lexiscan MPI stress test 10/2018: Negative for ischemia, EF 15%. Outpatient Medications: carvedilol 25 mg p.o. twice daily, Entresto 24-26 mg p.o. twice daily, Lasix 40 mg p.o. twice daily, Aldactone 25 mg p.o daily, Eliquis for anticoagulation. Plan: Patient awaiting transferred to [place] for further evaluation and management. Dr Srini Saunders is the accepting physician Will stop dobutamine and continue to monitor patient GDMT for HF on hold in the setting of shock and hypotension currently requiring midodrine Will decrease midodrine to 5 mg p.o. 3 times daily Anticoagulated on Eliquis Patient reports having good urine output yesterday following IV Lasix and edema has improved. Will resume outpatient Lasix 40 mg p.o. twice daily Close monitoring of renal function and repeat BMP in the a.m. Discussed plan of care with patient who verbalized understanding and acknowledgment Pt seen in conjunction with Dr. Minaya, who agrees with the assessment and plan of care. - Patient Problems (1) Sepsis Current Visit: Yes Status: Acute Qualifiers: Severe sepsis shock status: with septic shock (2) Shock Current Visit: Yes Status: Acute (3) Cardiac pacemaker in situ Current Visit: Yes Status: Chronic (4) H/O tricuspid valve repair Current Visit: Yes Status: Chronic (5) HFrEF (heart failure with reduced ejection fraction) Current Visit: Yes Status: Chronic (6) History of mitral valve replacement with bioprosthetic valve Current Visit: Yes Status: Chronic (7) Hyperbilirubinemia Current Visit: Yes Status: Chronic (8) Nonischemic cardiomyopathy Current Visit: Yes Status: Chronic (9) Paroxysmal atrial flutter Current Visit: Yes Status: Chronic (10) Abdominal pain Current Visit: No Status: Acute (11) AICD (automatic cardioverter/defibrillator) present Current Visit: No Status: Chronic (12) Endocarditis Current Visit: Yes Status: Acute Subjective Date of service: 04/17/22 Principal diagnosis: Sepsis Interval history: Patient resting in bed in no acute distress. Patient reports feeling better this a.m. and states that his pain has subsided Paced rhythm 80s Objective Vital Signs Temp Pulse Resp BP BP Pulse Ox 04/17/22 10:00 96 04/17/22 08:00 98.3 F 88 18 124/83 98 04/17/22 07:22 98.3 F 80 18 124/84 96 04/17/22 03:59 98.3 F 88 18 124/83 98 04/16/22 23:28 98.5 F 91 H 15 104/66 99 04/16/22 21:15 75 04/16/22 20:17 96 04/16/22 19:48 97.9 F 85 16 117/76 97 04/16/22 15:52 98.1 F 79 18 123/83 97 04/16/22 12:04 98.2 F 82 18 145/94 97 - Physical Examination General: No Apparent Distress HEENT: Positive: EOMI, Jaundice, Normocephaly Neck: Positive: neck supple, trachea midline. Negative: JVD/HJR Cardiac: Positive: Reg Rate and Rhythm Lungs: Positive: Normal Breath Sounds Neuro: Positive: Grossly Intact Abdomen: Positive: Distended Skin: Negative: Rash Musculoskeletal: No Pain Extremities: Present: upper extr. pulses, edema (trace BLE), warm - Labs and Meds CBC 04/17/22 Range/Units 04:29 WBC 9.9 (4.5-11.0) K/mm3 RBC 4.62 (3.65-5.03) M/mm3 Hgb 12.9 (11.8-15.2) gm/dl Hct 38.9 (35.5-45.6) % Plt Count 185 (140-440) K/mm3 Comprehensive Metabolic Panel 04/17/22 Range/Units 04:29 Sodium 134 L (137-145) mmol/L Potassium 4.1 (3.6-5.0) mmol/L Chloride 98.4 (98-107) mmol/L Carbon Dioxide 24 (22-30) mmol/L BUN 16 (9-20) mg/dL Creatinine 0.6 L (0.8-1.3) mg/dL Glucose 104 H (75-100) mg/dL Calcium 8.3 L (8.4-10.2) mg/dL - Imaging and Cardiology EKG: report reviewed, image reviewed Echo: report reviewed - Telemetry EKG Rhythm: Paced Pacemaker: ventricular pacing w/capt
[2022-04-17] MEDS: MIDODRINE 5 MG TAB PO SCH ×2 (12:23→17:45)
[2022-04-17] MEDS: SODIUM CHLORIDE 0.9% IV SCH ×2 (13:41→21:39)
[2022-04-17] MEDS: RIFAMPIN IV SCH ×2 (13:41→21:39)
--- NOTE | 2022-04-17 16:44 | Progress Note ---
Assessment and Plan Cultures: Blood culture 04/10/2022 MSSA A/P: 46-year-old man past medical history nonischemic cardiomyopathy with low ejection fraction, ascites, chronic jaundice, hypertension, pacemaker in place, previous tricuspid and mitral valve replacements #Acute sepsis: With fevers leukocytosis. Secondary to MSSA bacteremia #MSSA bacteremia: Likely skin source. He is extremely high risk for invasive infection given his pacemaker, artificial tricuspid and mitral valves. 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 Recs: -Continue nafcillin -continue gentamicin dosed per pharmacy -Follow-up repeat blood cultures -Discussed with pharmacy, started rifampin today with negative blood cultures. -Pending transfer to [place] Thank you for the consult, we will continue to follow. Christie Jefferson MD [facility] ([facility]) O: [phone] F: [phone] Subjective Date of service: 04/17/22 Principal diagnosis: Sepsis Interval history: Afebrile, normal white count now. Repeat cultures negative at 72 hours. Objective - Exam Narrative Exam: Physical Exam: Constitutional: Alert, cooperative. No acute distress Head, Ears, Nose: Normocephalic, atraumatic. External ears, nose normal Eyes: Conjunctivae/corneas clear. No icterus. No ptosis. Neck: Supple, no meningeal signs Oral: dentition fair, no thrush Cardiovascular: S1, S2 normal. Respiratory: Good air entry, clear to auscultation bilaterally GI: Soft, non-tender; bowel sounds normal. No peritoneal signs. Musculoskeletal: No pedal edema, no cyanosis. Skin: No rash or abscess Hem/Lymphatic: No palpable cervical or supraclavicular nodes. No lymphangitis Psych: Mood ok. Affect normal Neurological: Awake, alert, oriented. No gross abnormality - Constitutional Vitals: Vital Signs Temp Pulse Resp BP Pulse Ox 98.2 F 82 18 122/79 96 04/17/22 15:35 04/17/22 15:35 04/17/22 15:35 04/17/22 15:35 04/17/22 15:35 Temperature -Last 24 Hours Temperature 98.2 F Temperature 98.2 F Temperature 98.3 F Temperature 98.3 F Temperature 98.3 F Temperature 98.5 F Temperature 97.9 F - Labs CBC & Chem 7: 04/17/22 04:29 04/17/22 04:29 Labs: Abnormal lab results 04/17/22 04/17/22 04/17/22 Range/Units 04:29 04:29 13:13 RDW 17.1 H (13.2-15.2) % Sodium 134 L (137-145) mmol/L Creatinine 0.6 L (0.8-1.3) mg/dL Glucose 104 H (75-100) mg/dL Calcium 8.3 L (8.4-10.2) mg/dL Gentamicin Peak (5.0-10.0) ug/mL Gentamicin Trough 2.2 H* (0-2.0) ug/mL 04/17/22 Range/Units 14:39 RDW (13.2-15.2) % Sodium (137-145) mmol/L Creatinine (0.8-1.3) mg/dL Glucose (75-100) mg/dL Calcium (8.4-10.2) mg/dL Gentamicin Peak 3.7 L (5.0-10.0) ug/mL Gentamicin Trough (0-2.0) ug/mL
[2022-04-17] MEDS: FUROSEMIDE 40 MG TAB PO SCH (17:45)
[2022-04-17] MEDS: oxyCODONE /ACETAMINOPHEN 5-325MG TAB PO PRN (21:37)
[2022-04-17] MEDS: SENNOSIDES/DOCUSATE SODIUM 8.6/50 MG TAB PO SCH (21:37)
[2022-04-18] MEDS: NAFCILLIN 2 GM in SODIUM CHLORIDE 0.9% 100 ML IV SCH ×6 (02:41→21:45)
[2022-04-18] MEDS: FUROSEMIDE 40 MG TAB PO SCH (05:58)
[2022-04-18] MEDS: rifAMPin 300 MG CAP PO SCH ×3 (05:58→23:15)
[2022-04-18 06:11] LABS: Hematocrit 38.9 % (35.5-45.6); Hemoglobin 13.3 gm/dl (11.8-15.2); Mean Corpuscular HGB Conc 34 % (32-34); Mean Corpuscular Volume 83 fl (84-94); Platelet Count 224 K/mm3 (140-440); Red Blood Count 4.67 M/mm3 (3.65-5.03); Red Cell Distribution Width 17.3 % (13.2-15.2)
[2022-04-18 06:28] LABS: Blood Urea Nitrogen 16 mg/dL (9-20); Calcium 8.4 mg/dL (8.4-10.2); Hemolysis Index 6
[2022-04-18 06:30] LABS: BUN/Creatinine Ratio 27
[2022-04-18 08:09] LABS: Basophils % (Manual) 0 % (0.0-1.8); Total Cells Counted 100
[2022-04-18 08:10] LABS: Target Cells 1+
[2022-04-18 08:11] LABS: Platelet Estimate Consistent w Auto
[2022-04-18] MEDS: MIDODRINE 5 MG TAB PO SCH ×3 (08:19→16:32)
[2022-04-18] MEDS: APIXABAN 5 MG TAB PO SCH ×2 (09:46→21:46)
[2022-04-18] MEDS ORDERED: GENTAMICIN/NS 80 MG/100 ML 100 ML IV SCH (10:00)
--- NOTE | 2022-04-18 11:48 | Progress Note ---
Assessment and Plan Assessment and plan: 46-year-old man past medical history nonischemic cardiomyopathy with low ejection fraction, ascites, chronic jaundice, hypertension, pacemaker in place, previous tricuspid and mitral valve replacements Sepsis. Patient meets criteria with the fever, leukocytosis and diagnosis of MSSA bacteremia. MSSA bacteremia Prosthetic valve endocarditis Ischemic cardiomyopathy KAYLIN Sacroiliitis 04/14/2022. Echocardiogram reveals endocarditis. Patient on Ancef. ID consulted. Patient is pending transfer to [facility]. 04/15/2022. ID discontinue Ancef and started nafcillin as well as gentamicin. We will follow-up repeat blood cultures. ID wants to await clearance of blood cultures prior to initiating rifampin. Patient pending transfer to [place]. 04/16/2022. Patient complains of right lower back and buttocks pain. Pain is reproducible with palpation. I suspect patient has sacroiliitis. We will start tramadol. CT scan showed no evidence of embolic disease. Await transfer to [place] for treatment of endocarditis 04/17/2022. Patient up ambulating in the room without any difficulty. Continue tramadol as needed. Continue nafcillin and gentamicin per ID recommendations. Follow-up repeat blood cultures. I personally reached out to the [place] to check on the status of transfer and we are still awaiting bed availability. 04/18/2022. Continue nafcillin and gentamicin per ID recommendations. Follow-up repeat blood cultures. Awaitng transfer to [place] History Interval history: No new issues overnight Hospitalist Physical - Constitutional Vitals: Temp Pulse Resp BP Pulse Ox 98.4 F 83 18 118/87 99 04/18/22 07:50 04/18/22 07:50 04/18/22 10:00 04/18/22 07:50 04/18/22 10:00 General appearance: Present: no acute distress, well-nourished - EENT Eyes: Present: PERRL, EOM intact ENT: hearing intact, clear oral mucosa, dentition normal - Neck Neck: Present: supple, normal ROM - Respiratory Respiratory effort: normal Respiratory: bilateral: CTA - Cardiovascular Rhythm: regular Heart Sounds: Present: S1 & S2. Absent: gallop, rub - Extremities Extremities: no ischemia, No edema, Full ROM - Abdominal General gastrointestinal: soft, non-tender, non-distended, normal bowel sounds - Integumentary Integumentary: Present: clear, warm, dry - Neurologic Neurologic: CNII-XII intact, moves all extremities HEART Score - HEART Score Troponin: Troponin T 0.016 ng/mL (0.00-0.029) 04/11/22 16:37 Results - Labs CBC & Chem 7: 04/18/22 05:13 04/18/22 05:13 Labs: Laboratory Last Values WBC 10.1 K/mm3 (4.5-11.0) 04/18/22 05:13 RBC 4.67 M/mm3 (3.65-5.03) 04/18/22 05:13 Hgb 13.3 gm/dl (11.8-15.2) 04/18/22 05:13 Hct 38.9 % (35.5-45.6) 04/18/22 05:13 MCV 83 fl (84-94) L 04/18/22 05:13 MCH 28 pg (28-32) 04/18/22 05:13 MCHC 34 % (32-34) 04/18/22 05:13 RDW 17.3 % (13.2-15.2) H 04/18/22 05:13 Plt Count 224 K/mm3 (140-440) 04/18/22 05:13 Lymph % (Auto) 3.6 % (13.4-35.0) L 04/14/22 00:06 [place] % (Auto) 8.6 % (0.0-7.3) H 04/14/22 00:06 Eos % (Auto) 0.1 % (0.0-4.3) 04/14/22 00:06 Baso % (Auto) 0.2 % (0.0-1.8) 04/14/22 00:06 Lymph # (Auto) 0.6 K/mm3 (1.2-5.4) L 04/14/22 00:06 [place] # (Auto) 1.4 K/mm3 (0.0-0.8) H 04/14/22 00:06 Eos # (Auto) 0.0 K/mm3 (0.0-0.4) 04/14/22 00:06 Baso # (Auto) 0.0 K/mm3 (0.0-0.1) 04/14/22 00:06 Add Manual Diff Complete 04/18/22 05:13 Total Counted 100 04/18/22 05:13 Seg Neutrophils % 87.5 % (40.0-70.0) H 04/14/22 00:06 Seg Neuts % (Manual) 87.0 % (40.0-70.0) H 04/18/22 05:13 Band Neutrophils % 0 % 04/18/22 05:13 Lymphocytes % (Manual) 5.0 % (13.4-35.0) L 04/18/22 05:13 Reactive Lymphs % (Man) 0 % 04/18/22 05:13 Monocytes % (Manual) 5.0 % (0.0-7.3) 04/18/22 05:13 Eosinophils % (Manual) 1.0 % (0.0-4.3) 04/18/22 05:13 Basophils % (Manual) 0 % (0.0-1.8) 04/18/22 05:13 Metamyelocytes % 2.0 % 04/18/22 05:13 Myelocytes % 0 % 04/18/22 05:13 Promyelocytes % 0 % 04/18/22 05:13 Blast Cells % 0 % 04/18/22 05:13 Nucleated RBC % Not Reportable 04/18/22 05:13 Seg Neutrophils # 14.6 K/mm3 (1.8-7.7) H 04/14/22 00:06 Seg Neutrophils # Man 8.8 K/mm3 (1.8-7.7) H 04/18/22 05:13 Band Neutrophils # 0.0 K/mm3 04/18/22 05:13 Lymphocytes # (Manual) 0.5 K/mm3 (1.2-5.4) L 04/18/22 05:13 Abs React Lymphs (Man) 0.0 K/mm3 04/18/22 05:13 Monocytes # (Manual) 0.5 K/mm3 (0.0-0.8) 04/18/22 05:13 Eosinophils # (Manual) 0.1 K/mm3 (0.0-0.4) 04/18/22 05:13 Basophils # (Manual) 0.0 K/mm3 (0.0-0.1) 04/18/22 05:13 Metamyelocytes # 0.2 K/mm3 04/18/22 05:13 Myelocytes # 0.0 K/mm3 04/18/22 05:13 Promyelocytes # 0.0 K/mm3 04/18/22 05:13 Blast Cells # 0.0 K/mm3 04/18/22 05:13 WBC Morphology Not Reportable 04/18/22 05:13 Hypersegmented Neuts Not Reportable 04/18/22 05:13 Hyposegmented Neuts Not Reportable 04/18/22 05:13 Hypogranular Neuts Not Reportable 04/18/22 05:13 Smudge Cells Not Reportable 04/18/22 05:13 Toxic Granulation Not Reportable 04/18/22 05:13 Toxic Vacuolation Not Reportable 04/18/22 05:13 Dohle Bodies Not Reportable 04/18/22 05:13 Pelger-Huet Anomaly Not Reportable 04/18/22 05:13 Gray Rods Not Reportable 04/18/22 05:13 Platelet Estimate Consistent w auto 04/18/22 05:13 Clumped Platelets Not Reportable 04/18/22 05:13 Plt Clumps, EDTA Not Reportable 04/18/22 05:13 Large Platelets Not Reportable 04/18/22 05:13 Giant Platelets Not Reportable 04/18/22 05:13 Platelet Satelliting Not Reportable 04/18/22 05:13 Plt Morphology Comment Not Reportable 04/18/22 05:13 RBC Morphology Not Reportable 04/18/22 05:13 Dimorphic RBCs Not Reportable 04/18/22 05:13 Polychromasia Not Reportable 04/18/22 05:13 Hypochromasia Not Reportable 04/18/22 05:13 Poikilocytosis Not Reportable 04/18/22 05:13 Anisocytosis Not Reportable 04/18/22 05:13 Microcytosis Not Reportable 04/18/22 05:13 Macrocytosis Not Reportable 04/18/22 05:13 Spherocytes Not Reportable 04/18/22 05:13 Pappenheimer Bodies Not Reportable 04/18/22 05:13 Sickle Cells Not Reportable 04/18/22 05:13 Target Cells 1+ 04/18/22 05:13 Tear Drop Cells Not Reportable 04/18/22 05:13 Ovalocytes Not Reportable 04/18/22 05:13 Helmet Cells Not Reportable 04/18/22 05:13 [place] Bodies Not Reportable 04/18/22 05:13 [place] Rings Not Reportable 04/18/22 05:13 [place] Cells Not Reportable 04/18/22 05:13 Bite Cells Not Reportable 04/18/22 05:13 Crenated Cell Not Reportable 04/18/22 05:13 Elliptocytes Not Reportable 04/18/22 05:13 Acanthocytes (Spur) Not Reportable 04/18/22 05:13 Rouleaux Not Reportable 04/18/22 05:13 Hemoglobin C Crystals Not Reportable 04/18/22 05:13 Schistocytes Not Reportable 04/18/22 05:13 Malaria parasites Not Reportable 04/18/22 05:13 [place] Bodies Not Reportable 04/18/22 05:13 Hem Pathologist Commnt No 04/18/22 05:13 PT 20.5 Sec. (12.2-14.9) H 04/10/22 18:14 INR 1.51 (0.87-1.13) H 04/10/22 18:14 D-Dimer 1939.20 ng/mlDDU (0-234) H 04/10/22 21:28 Sodium 136 mmol/L (137-145) L 04/18/22 05:13 Potassium 4.4 mmol/L (3.6-5.0) 04/18/22 05:13 Chloride 99.5 mmol/L (98-107) 04/18/22 05:13 Carbon Dioxide 23 mmol/L (22-30) 04/18/22 05:13 Anion Gap 18 mmol/L 04/18/22 05:13 BUN 16 mg/dL (9-20) 04/18/22 05:13 Creatinine 0.6 mg/dL (0.8-1.3) L 04/18/22 05:13 Estimated GFR > 60 ml/min 04/18/22 05:13 BUN/Creatinine Ratio 27 % 04/18/22 05:13 Glucose 110 mg/dL (75-100) H 04/18/22 05:13 Lactic Acid 2.70 mmol/L (0.7-2.0) H* 04/10/22 18:14 Calcium 8.4 mg/dL (8.4-10.2) 04/18/22 05:13 Magnesium 2.20 mg/dL (1.7-2.3) 04/12/22 04:09 Ferritin 186.3 ng/mL (30.0-300.0) 04/10/22 21:28 Total Bilirubin 17.40 mg/dL (0.1-1.2) H 04/13/22 04:27 Direct Bilirubin 11.8 mg/dL (0-0.2) H 04/13/22 04:27 Indirect Bilirubin 5.6 mg/dL 04/13/22 04:27 AST 29 units/L (5-40) 04/13/22 04:27 ALT 33 units/L (7-56) 04/13/22 04:27 Alkaline Phosphatase 114 units/L (35-129) 04/13/22 04:27 Lactate Dehydrogenase 310 units/L (91-180) H 04/10/22 21:28 Total Creatine Kinase 268 units/L (55-170) H 04/10/22 18:14 Troponin T 0.016 ng/mL (0.00-0.029) 04/11/22 16:37 C-Reactive Protein 15.60 mg/dL (0.00-1.30) H 04/10/22 21:28 NT-Pro-B Natriuret Pep > 40616 pg/mL (0-450) H 04/10/22 18:14 Total Protein 6.1 g/dL (6.3-8.2) L 04/13/22 04:27 Albumin 3.0 g/dL (3.9-5) L 04/13/22 04:27 Albumin/Globulin Ratio 1.0 % 04/13/22 04:27 Lipase 19 units/L (13-60) 04/10/22 18:14 Procalcitonin 46.51 ng/mL (<0.15) 04/10/22 21:28 Urine Creatinine 75.0 mg/dL (0.1-20.0) H 04/13/22 16:00 Urine Sodium 12 mmol/L 04/13/22 16:00 Gentamicin Peak 3.7 ug/mL (5.0-10.0) L 04/17/22 14:39 Gentamicin Trough 2.2 ug/mL (0-2.0) H* 04/17/22 13:13 Vancomycin Trough 21.3 ug/mL (5.0-20.0) H 04/13/22 13:00 SARS-CoV-2 (PCR) Negative (Negative) 04/11/22 11:55 Microbiology: Microbiology 04/14/22 06:58 Peripheral/Venous Blood Culture - Preliminary NO GROWTH AFTER 4 DAYS 04/13/22 23:30 Peripheral/Venous Blood Culture - Preliminary NO GROWTH AFTER 4 DAYS Carvajal/IV: Voiding Method Urinal Active Medications - Current Medications Current Medications: Generic Name Dose Route Start Last Admin Trade Name Freq PRN Reason Stop Dose Admin Acetaminophen 650 mg 04/10/22 21:09 Acetaminophen 325 Mg Tab PO Q4H PRN Pain MILD(1-3)/Fever >100.5/PEREZ Apixaban 5 mg 04/10/22 22:00 04/18/22 09:46 Apixaban 5 Mg Tab PO 5 mg BID SARAH Administration Atorvastatin Calcium 10 mg 04/10/22 22:00 04/17/22 23:20 Atorvastatin 10 Mg Tab PO 10 mg QHS SARAH Administration Calcium Carbonate/Glycine 500 mg 04/12/22 14:00 Calcium Carbonate 500 Mg Tab Chew PO Q4H PRN Indigestion Furosemide 40 mg 04/17/22 18:00 04/18/22 05:58 Furosemide 40 Mg Tab PO 40 mg 0600,1800 SARAH Administration Nafcillin Sodium 2 gm/ Sodium 100 mls @ 100 mls/30 min 04/14/22 13:00 04/18/22 08:19 Chloride IV 100 mls/30 min Q4H SARAH Administration Protocol Gentamicin Sulfate/Sodium Chloride 120 mg in 100 mls @ 200 mls/hr 04/19/22 14:00 Gentamicin/Ns 120mg/100ml IV Q24H SARAH Metoclopramide HCl 10 mg 04/10/22 21:09 Metoclopramide 10 Mg/2 Ml Inj IV Q6H PRN Nausea And Vomiting Midodrine 5 mg 04/17/22 12:00 04/18/22 08:19 Midodrine 5 Mg Tab PO 5 mg TID@0800,1200,1600 SARAH Administration Morphine Sulfate 2 mg 04/10/22 21:09 04/15/22 11:01 Morphine 2 Mg/1 Ml Inj IV 2 mg Q4H PRN Administration Pain, Moderate (4-6) Ondansetron HCl 4 mg 04/10/22 21:09 04/15/22 11:01 Ondansetron 4 Mg/2 Ml Inj IV 4 mg Q3H PRN Administration Nausea And Vomiting Oxycodone/Acetaminophen 1 tab 04/11/22 21:38 04/17/22 21:37 Oxycodone /Acetaminophen 5-325mg Tab PO 1 tab Q4H PRN Administration Pain, Moderate (4-6) Rifampin 300 mg 04/18/22 06:00 04/18/22 05:58 Rifampin 300 Mg Cap PO 300 mg Q8H SARAH Administration Senna/Docusate Sodium 1 tab 04/12/22 22:00 04/17/22 21:37 Sennosides/Docusate Sodium 8.6/50 Mg Tab PO 1 tab QHS SARAH Administration Sodium Chloride 10 ml 04/10/22 22:00 04/18/22 09:46 Sodium Chloride 0.9% 10 Ml Flush Syringe IV 10 ml BID SARAH Administration Sodium Chloride 10 ml 04/10/22 21:09 Sodium Chloride 0.9% 10 Ml Flush Syringe IV PRN PRN LINE FLUSH Tramadol HCl 50 mg 04/16/22 10:30 Tramadol 50 Mg Tab PO Q6H PRN Pain, Moderate (4-6) Nutrition/Malnutrition Assess - Dietary Evaluation Nutrition/Malnutrition Findings: Nutrition Notes Start: 04/17/22 12:26 Freq: Status: Active Protocol: Document 04/17/22 12:26 RODRI (Rec: 04/17/22 12:42 RODRI [id number]) Nutrition Notes Need for Assessment generated from: LOS Initial or Follow up Assessment Current Diagnosis Acute Kidney Injury,Sepsis, Hypertension Other Pertinent Diagnosis Endocarditis, Cardiomyopathy, Bacteremia, HFrEF, Liver Disease, EtOH Abuse. Current Diet Cardiac Diet (since L 04/14). Labs/Tests 04/17: Na 134, Crea 0.6, Glu 104, Ca 8.3. Pertinent Medications 04/17: Nutritionally unremarkable. Height 5 ft 7 in Weight 106 kg [place] Body Weight (kg) 67.27 BMI 36.6 Intake Prior to Admission Good Weight change and time frame Pt states being unsure if loss body weight [employer]. Subjective/Other Information RD consult for LOS assessment. Pt's PO intake of meals has been Good (75%) and well tolerated, according to ADL notes. Pt is on Room Air, O2 saturation @ 96%, according to Physical Assessment History notes. Pt had diarrhea and complaied of abdominal pain at admission , according to History & Physical notes. Pt is waiting to be transferred to [facility], according to Progress notes.. Percent of energy/protein needs met: Prescribed Cardiac Diet provides for energy/protein needs (2,230 Kcal/85 g) during LOS. Burn Absent Trauma Absent GI Symptoms None Food Allergy No Skin Integrity/Comment Assessment WNL. Current % PO Good (75-100%) Minimum of two criteria No Fluid Accumulation Mild (non-severe) Reduced Safety Representative Strength N/A (non-severe) Protein-Calorie Malnutrition N\A #1 Nutrition Diagnosis No nutrition diagnosis at this time Is patient on ventilator? No Is Patient Ambulatory and/or Out of Bed Yes REE-([place]-ambulatory/OOB) [ 2481.219 [id number]] Kcal/Kg value to use for calculation 17 Approximate Energy Requirements Using 1802 kcal/Kg Calculation Used for Recommendations Kcal/kg Additional Notes Protein: 0.8-1.2 g/Kg AdjBW; 70-104 g/day. Fluids: 1 ml/Kcal, or as per MD. Nutrition Intervention Change Diet Order: Continue Cardiac Diet. Revisit per MD consult or patient Sign Off request: Additional Comments Continue monitoring food tolerance, %PO intake of meals , and BM.
--- NOTE | 2022-04-18 13:29 | Progress Note ---
Assessment and Plan Assessment: Sepsis / MSSA Bacteremia Shock (septic +/- cardiogenic) Prosthetic MV Endocarditis HFrEF / NICMP (EF 10-15%, declined AICD in 2018 d/t lack of employment/insurance) KAYLIN (resolved) PAFlutter (on Eliquis 5mg BID) S/p DENVER Occlusion (11/2016) H/o Severe MR s/p Bioprosthetic MV (11/2016) S/p TV Repair/Ring Annuloplasty (11/2016) H/o CHB s/p PPM (Medtronic) H/o HTN Liver Disease/Chronic Jaundice H/o EtOH Abuse H/o Tobacco Abuse PRATIMA 04/14/2022: EF 10 to 15%, severe global hypokinesis of left ventricle. No thrombus noted in LV. Right ventricle severely hypokinetic. Device lead is present in right ventricle, no vegetations. Device lead is present in right atrium, no vegetations. No left atrial appendage. Normal left pulmonary vein. Saline bubble study did not demonstrate PFO. Mitral valve vegetation is present on bioprosthetic mitral valve. Bioprosthetic mitral valve present. No tricuspid valve vegetation. No pulmonic valve vegetation. No aortic valvular vegetation. Echo 04/01/2022: EF 10 to 15%. Left ventricle is mildly dilated. Severe global hypokinesis of left ventricle. Left ventricular end-diastolic pressure is elevated. Right ventricle is dilated. Right ventricle is hypokinetic. Device lead is present in right ventricle. Left atrium is mildly dilated. Right atrium is dilated. Bioprosthetic mitral valve is present. Mild to moderate tricuspid regurgitation. RVSP 41mmHg. Echo 05/2018: EF 15-20%, LA and RA dilated, RV dilated and hypokinetic, pacemaker electrode in right sided chambers, bioprosthetic valve in mitral position functioning normally, mod AR, no , mod TR, pulm HTN RVSP 65mmHg. Lexiscan MPI Stress Test 10/2018: Negative for ischemia, EF 15%. Plan: ID following. Awaiting transfer to [place] under the care of Dr. Saunders pending bed availability. Change PO Lasix to IV Lasix 40mg BID. Continue strict I/Os and close monitoring of renal indices. Other GDMT for HF on hold due to inadequate BP (stable on Midodrine 5mg TID today). Pt seen in conjunction with Dr. Joana Way, who agrees with the assessment and plan of care. - Patient Problems (1) Sepsis Current Visit: Yes Status: Acute Qualifiers: Severe sepsis shock status: with septic shock (2) Shock Current Visit: Yes Status: Acute (3) Infective endocarditis Current Visit: Yes Status: Acute (4) HFrEF (heart failure with reduced ejection fraction) Current Visit: Yes Status: Chronic (5) Nonischemic cardiomyopathy Current Visit: Yes Status: Chronic (6) Paroxysmal atrial flutter Current Visit: Yes Status: Chronic (7) Cardiac pacemaker in situ Current Visit: Yes Status: Chronic (8) History of mitral valve replacement with bioprosthetic valve Current Visit: Yes Status: Chronic (9) History of tricuspid valve annuloplasty Current Visit: Yes Status: Chronic Subjective Date of service: 04/18/22 Principal diagnosis: IE, HFrEF Interval history: C/o SOB/orthopnea and edema. 750mL UOP / 24 hrs. 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 Still awaiting transfer to [place]. Objective Vital Signs Temp Pulse Resp BP BP Pulse Ox 04/18/22 10:00 18 99 04/18/22 07:50 98.4 F 83 18 118/87 97 04/18/22 04:00 97.7 F 79 18 127/85 99 04/17/22 22:00 86 18 99 04/17/22 20:00 101.1 F H 86 18 109/81 100 04/17/22 15:35 98.2 F 82 18 122/79 96 - Physical Examination General: No Apparent Distress HEENT: Positive: EOMI, Jaundice, Normocephaly Neck: Positive: neck supple, trachea midline. Negative: JVD/HJR Cardiac: Positive: Reg Rate and Rhythm, S1/S2 Lungs: Positive: Decreased Breath Sounds Neuro: Positive: Grossly Intact Abdomen: Positive: Distended. Negative: Tender Skin: Negative: Rash Musculoskeletal: No Pain Extremities: Present: upper extr. pulses, edema, warm - Labs and Meds CBC 04/18/22 Range/Units 05:13 WBC 10.1 (4.5-11.0) K/mm3 RBC 4.67 (3.65-5.03) M/mm3 Hgb 13.3 (11.8-15.2) gm/dl Hct 38.9 (35.5-45.6) % Plt Count 224 (140-440) K/mm3 Comprehensive Metabolic Panel 04/18/22 Range/Units 05:13 Sodium 136 L (137-145) mmol/L Potassium 4.4 (3.6-5.0) mmol/L Chloride 99.5 (98-107) mmol/L Carbon Dioxide 23 (22-30) mmol/L BUN 16 (9-20) mg/dL Creatinine 0.6 L (0.8-1.3) mg/dL Glucose 110 H (75-100) mg/dL Calcium 8.4 (8.4-10.2) mg/dL - Imaging and Cardiology EKG: report reviewed, image reviewed Pharmacologic stress test: report reviewed Echo: report reviewed - Telemetry EKG Rhythm: Paced Pacemaker: ventricular pacing w/capt
[2022-04-18] MEDS ORDERED: GENTAMICIN IV SCH (14:00)
[2022-04-18] MEDS ORDERED: SODIUM CHLORIDE 0.9% IV SCH (14:00)
[2022-04-18] MEDS: FUROSEMIDE 40 MG/4 ML INJ IV SCH (17:57)
[2022-04-18] MEDS: SENNOSIDES/DOCUSATE SODIUM 8.6/50 MG TAB PO SCH (21:46)
[2022-04-19] MEDS: NAFCILLIN 2 GM in SODIUM CHLORIDE 0.9% 100 ML IV SCH ×6 (00:39→22:17)
[2022-04-19] MEDS: MORPHINE 2 MG/1 ML INJ IV PRN (02:03)
[2022-04-19 05:15] LABS: Basophils # (Auto) 0.1 K/mm3 (0.0-0.1); Basophils % (Auto) 1.2 % (0.0-1.8); Eosinophils # (Auto) 0.1 K/mm3 (0.0-0.4); Eosinophils % (Auto) 1.2 % (0.0-4.3); Hematocrit 40.6 % (35.5-45.6); Hemoglobin 13.7 gm/dl (11.8-15.2); Lymphocytes % (Auto) 8.5 % (13.4-35.0); Mean Corpuscular HGB Conc 34 % (32-34); Mean Corpuscular Volume 83 fl (84-94); Monocytes # (Auto) 0.9 K/mm3 (0.0-0.8); Monocytes % (Auto) 7.7 % (0.0-7.3); Platelet Count 267 K/mm3 (140-440); Red Blood Count 4.89 M/mm3 (3.65-5.03); Red Cell Distribution Width 17.2 % (13.2-15.2)
[2022-04-19] MEDS: FUROSEMIDE 40 MG/4 ML INJ IV SCH ×3 (05:26→18:33)
[2022-04-19 05:44] LABS: BUN/Creatinine Ratio 20; Blood Urea Nitrogen 16 mg/dL (9-20); Calcium 8.6 mg/dL (8.4-10.2); Hemolysis Index 2
[2022-04-19] MEDS: rifAMPin 300 MG CAP PO SCH ×3 (06:10→22:17)
[2022-04-19] MEDS: MIDODRINE 5 MG TAB PO SCH ×3 (09:45→18:21)
[2022-04-19] MEDS: APIXABAN 5 MG TAB PO SCH ×2 (09:45→22:17)
--- NOTE | 2022-04-19 13:15 | Progress Note ---
Assessment and Plan Assessment: Sepsis / MSSA Bacteremia (ID following) Shock (septic +/- cardiogenic) Prosthetic MV Endocarditis HFrEF / NICMP (EF 10-15%, declined AICD in 2018 d/t lack of employment/insurance, will be revisited as outpatient once clinically stable) KAYLIN (resolved) PAFlutter (on Eliquis 5mg BID) S/p [place] Occlusion (11/2016) H/o Severe MR s/p Bioprosthetic MV (11/2016) S/p TV Repair/Ring Annuloplasty (11/2016) H/o CHB s/p PPM (Medtronic) H/o HTN Liver Disease/Chronic Jaundice H/o EtOH Abuse H/o Tobacco Abuse PRATIMA 04/14/2022: EF 10 to 15%, severe global hypokinesis of left ventricle. No thrombus noted in LV. Right ventricle severely hypokinetic. Device lead is present in right ventricle, no vegetations. Device lead is present in right atrium, no vegetations. No left atrial appendage. Normal left pulmonary vein. Saline bubble study did not demonstrate PFO. Mitral valve vegetation is present on bioprosthetic mitral valve. Bioprosthetic mitral valve present. No tricuspid valve vegetation. No pulmonic valve vegetation. No aortic valvular vegetation. Echo 04/01/2022: EF 10 to 15%. Left ventricle is mildly dilated. Severe global hypokinesis of left ventricle. Left ventricular end-diastolic pressure is elevated. Right ventricle is dilated. Right ventricle is hypokinetic. Device lead is present in right ventricle. Left atrium is mildly dilated. Right atrium is dilated. Bioprosthetic mitral valve is present. Mild to moderate tricuspid regurgitation. RVSP 41mmHg. Echo 05/2018: EF 15-20%, LA and RA dilated, RV dilated and hypokinetic, pacemaker electrode in right sided chambers, bioprosthetic valve in mitral position functioning normally, mod AR, no , mod TR, pulm HTN RVSP 65mmHg. Lexiscan MPI Stress Test 10/2018: Negative for ischemia, EF 15%. Plan: Awaiting transfer to [place] under the care of Dr. Saunders pending bed availability. Confirmed with transfer service today, still awaiting bed. Continue IV Lasix 40mg BID with strict I/Os and close monitoring of renal indices. Other GDMT for HF on hold due to inadequate BP (stable on Midodrine 5mg TID today). Pt seen in conjunction with Dr. Joana Way, who agrees with the assessment and plan of care. - Patient Problems (1) Sepsis Current Visit: Yes Status: Acute Qualifiers: Severe sepsis shock status: with septic shock (2) Shock Current Visit: Yes Status: Acute (3) Infective endocarditis Current Visit: Yes Status: Acute (4) HFrEF (heart failure with reduced ejection fraction) Current Visit: Yes Status: Chronic (5) Nonischemic cardiomyopathy Current Visit: Yes Status: Chronic (6) Paroxysmal atrial flutter Current Visit: Yes Status: Chronic (7) Cardiac pacemaker in situ Current Visit: Yes Status: Chronic (8) History of mitral valve replacement with bioprosthetic valve Current Visit: Yes Status: Chronic (9) History of tricuspid valve annuloplasty Current Visit: Yes Status: Chronic Subjective Date of service: 04/19/22 Principal diagnosis: IE, HFrEF Interval history: States breathing and edema are a little better after resuming IV Lasix yesterday. No new complaints. 750mL UOP / 24 hrs (pt reports more but did not want to use urinals yesterday). 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 Still awaiting transfer to [place]. Objective Vital Signs Temp Pulse Pulse Resp BP BP Pulse Ox 04/19/22 12:01 97.4 F L 19 117/79 04/19/22 10:00 88 88 98 04/19/22 08:31 98.2 F 88 19 125/86 98 04/19/22 04:18 98.6 F 84 20 112/69 97 04/19/22 04:00 98.6 F 84 20 112/69 97 04/19/22 02:03 20 04/19/22 00:39 98.3 F 52 L 20 122/59 98 04/19/22 00:00 98.3 F 52 L 122/59 04/18/22 22:00 84 98 04/18/22 21:19 98.5 F 89 18 120/83 97 04/18/22 20:00 98.5 F 89 18 120/83 97 04/18/22 16:17 98.3 F 85 18 127/83 99 04/18/22 16:00 98.4 F 83 18 127/85 99 - Physical Examination General: No Apparent Distress HEENT: Positive: EOMI, Jaundice, Normocephaly Neck: Positive: neck supple, trachea midline. Negative: JVD/HJR Cardiac: Positive: Reg Rate and Rhythm, S1/S2 Lungs: Positive: Decreased Breath Sounds Neuro: Positive: Grossly Intact Abdomen: Positive: Distended. Negative: Tender Skin: Negative: Rash Musculoskeletal: No Pain Extremities: Present: upper extr. pulses, edema, warm - Labs and Meds CBC 04/19/22 Range/Units 04:54 WBC 11.9 H (4.5-11.0) K/mm3 RBC 4.89 (3.65-5.03) M/mm3 Hgb 13.7 (11.8-15.2) gm/dl Hct 40.6 (35.5-45.6) % Plt Count 267 (140-440) K/mm3 Lymph # (Auto) 1.0 L (1.2-5.4) K/mm3 [place] # (Auto) 0.9 H (0.0-0.8) K/mm3 Eos # (Auto) 0.1 (0.0-0.4) K/mm3 Baso # (Auto) 0.1 (0.0-0.1) K/mm3 Comprehensive Metabolic Panel 04/19/22 Range/Units 04:54 Sodium 140 (137-145) mmol/L Potassium 3.9 (3.6-5.0) mmol/L Chloride 100.7 (98-107) mmol/L Carbon Dioxide 27 (22-30) mmol/L BUN 16 (9-20) mg/dL Creatinine 0.8 (0.8-1.3) mg/dL Glucose 101 H (75-100) mg/dL Calcium 8.6 (8.4-10.2) mg/dL - Imaging and Cardiology EKG: report reviewed, image reviewed Echo: report reviewed - Telemetry EKG Rhythm: Paced Pacemaker: ventricular pacing w/capt
[2022-04-19] MEDS: GENTAMICIN/NS 120MG/100ML 120 MG/100 ML BAG IV SCH (15:05)
--- NOTE | 2022-04-19 16:10 | Progress Note ---
Assessment and Plan Assessment and plan: 46-year-old man past medical history nonischemic cardiomyopathy with low ejection fraction, ascites, chronic jaundice, hypertension, pacemaker in place, previous tricuspid and mitral valve replacements Sepsis. Patient meets criteria with the fever, leukocytosis and diagnosis of MSSA bacteremia. MSSA bacteremia Prosthetic valve endocarditis Ischemic cardiomyopathy KAYLIN Sacroiliitis 04/14/2022. Echocardiogram reveals endocarditis. Patient on Ancef. ID consulted. Patient is pending transfer to [facility]. 04/15/2022. ID discontinue Ancef and started nafcillin as well as gentamicin. We will follow-up repeat blood cultures. ID wants to await clearance of blood cultures prior to initiating rifampin. Patient pending transfer to [place]. 04/16/2022. Patient complains of right lower back and buttocks pain. Pain is reproducible with palpation. I suspect patient has sacroiliitis. We will start tramadol. CT scan showed no evidence of embolic disease. Await transfer to [place] for treatment of endocarditis 04/17/2022. Patient up ambulating in the room without any difficulty. Continue tramadol as needed. Continue nafcillin and gentamicin per ID recommendations. Follow-up repeat blood cultures. I personally reached out to the [place] to check on the status of transfer and we are still awaiting bed availability. 04/18/2022. Continue nafcillin and gentamicin per ID recommendations. Follow-up repeat blood cultures. Awaitng transfer to [place] 04/19/2022. PRATIMA 04/14/2022: EF 10 to 15%, severe global hypokinesis of left ventricle. No thrombus noted in LV. Right ventricle severely hypokinetic. Device lead is present in right ventricle, no vegetations. Device lead is present in right atrium, no vegetations. No left atrial appendage. Normal left pulmonary vein. Saline bubble study did not demonstrate PFO. Mitral valve vegetation is present on bioprosthetic mitral valve. Bioprosthetic mitral valve present. No tricuspid valve vegetation. No pulmonic valve vegetation. No aortic valvular vegetation. Continue nafcillin and gentamicin per ID recommendations. Follow-up repeat blood cultures. Awaitng transfer to [place] under the care of Dr. Saunders pending bed availability. Confirmed with transfer service today, still awaiting bed. Continue IV Lasix 40mg BID with strict I/Os and close monitoring of renal indices. Other GDMT for HF on hold due to inadequate BP (stable on Midodrine 5mg TID today). History Interval history: No new issues overnight Hospitalist Physical - Constitutional Vitals: Temp Pulse Resp BP Pulse Ox 97.4 F L 88 19 117/79 98 04/19/22 12:01 04/19/22 10:00 04/19/22 12:01 04/19/22 12:01 04/19/22 10:00 General appearance: Present: no acute distress, well-nourished - EENT Eyes: Present: PERRL, EOM intact ENT: hearing intact, clear oral mucosa, dentition normal - Neck Neck: Present: supple, normal ROM - Respiratory Respiratory effort: normal Respiratory: bilateral: CTA - Cardiovascular Rhythm: regular Heart Sounds: Present: S1 & S2. Absent: gallop, rub - Extremities Extremities: no ischemia, No edema, Full ROM - Abdominal General gastrointestinal: soft, non-tender, non-distended, normal bowel sounds - Integumentary Integumentary: Present: clear, warm, dry - Neurologic Neurologic: CNII-XII intact, moves all extremities HEART Score - HEART Score Troponin: Troponin T 0.016 ng/mL (0.00-0.029) 04/11/22 16:37 Results - Labs CBC & Chem 7: 04/19/22 04:54 04/19/22 04:54 Labs: Laboratory Last Values WBC 11.9 K/mm3 (4.5-11.0) H 04/19/22 04:54 RBC 4.89 M/mm3 (3.65-5.03) 04/19/22 04:54 Hgb 13.7 gm/dl (11.8-15.2) 04/19/22 04:54 Hct 40.6 % (35.5-45.6) 04/19/22 04:54 MCV 83 fl (84-94) L 04/19/22 04:54 MCH 28 pg (28-32) 04/19/22 04:54 MCHC 34 % (32-34) 04/19/22 04:54 RDW 17.2 % (13.2-15.2) H 04/19/22 04:54 Plt Count 267 K/mm3 (140-440) 04/19/22 04:54 Lymph % (Auto) 8.5 % (13.4-35.0) L 04/19/22 04:54 [place] % (Auto) 7.7 % (0.0-7.3) H 04/19/22 04:54 Eos % (Auto) 1.2 % (0.0-4.3) 04/19/22 04:54 Baso % (Auto) 1.2 % (0.0-1.8) 04/19/22 04:54 Lymph # (Auto) 1.0 K/mm3 (1.2-5.4) L 04/19/22 04:54 [place] # (Auto) 0.9 K/mm3 (0.0-0.8) H 04/19/22 04:54 Eos # (Auto) 0.1 K/mm3 (0.0-0.4) 04/19/22 04:54 Baso # (Auto) 0.1 K/mm3 (0.0-0.1) 04/19/22 04:54 Add Manual Diff Complete 04/18/22 05:13 Total Counted 100 04/18/22 05:13 Seg Neutrophils % 81.4 % (40.0-70.0) H 04/19/22 04:54 Seg Neuts % (Manual) 87.0 % (40.0-70.0) H 04/18/22 05:13 Band Neutrophils % 0 % 04/18/22 05:13 Lymphocytes % (Manual) 5.0 % (13.4-35.0) L 04/18/22 05:13 Reactive Lymphs % (Man) 0 % 04/18/22 05:13 Monocytes % (Manual) 5.0 % (0.0-7.3) 04/18/22 05:13 Eosinophils % (Manual) 1.0 % (0.0-4.3) 04/18/22 05:13 Basophils % (Manual) 0 % (0.0-1.8) 04/18/22 05:13 Metamyelocytes % 2.0 % 04/18/22 05:13 Myelocytes % 0 % 04/18/22 05:13 Promyelocytes % 0 % 04/18/22 05:13 Blast Cells % 0 % 04/18/22 05:13 Nucleated RBC % Not Reportable 04/18/22 05:13 Seg Neutrophils # 9.7 K/mm3 (1.8-7.7) H 04/19/22 04:54 Seg Neutrophils # Man 8.8 K/mm3 (1.8-7.7) H 04/18/22 05:13 Band Neutrophils # 0.0 K/mm3 04/18/22 05:13 Lymphocytes # (Manual) 0.5 K/mm3 (1.2-5.4) L 04/18/22 05:13 Abs React Lymphs (Man) 0.0 K/mm3 04/18/22 05:13 Monocytes # (Manual) 0.5 K/mm3 (0.0-0.8) 04/18/22 05:13 Eosinophils # (Manual) 0.1 K/mm3 (0.0-0.4) 04/18/22 05:13 Basophils # (Manual) 0.0 K/mm3 (0.0-0.1) 04/18/22 05:13 Metamyelocytes # 0.2 K/mm3 04/18/22 05:13 Myelocytes # 0.0 K/mm3 04/18/22 05:13 Promyelocytes # 0.0 K/mm3 04/18/22 05:13 Blast Cells # 0.0 K/mm3 04/18/22 05:13 WBC Morphology Not Reportable 04/18/22 05:13 Hypersegmented Neuts Not Reportable 04/18/22 05:13 Hyposegmented Neuts Not Reportable 04/18/22 05:13 Hypogranular Neuts Not Reportable 04/18/22 05:13 Smudge Cells Not Reportable 04/18/22 05:13 Toxic Granulation Not Reportable 04/18/22 05:13 Toxic Vacuolation Not Reportable 04/18/22 05:13 Dohle Bodies Not Reportable 04/18/22 05:13 Pelger-Huet Anomaly Not Reportable 04/18/22 05:13 Gray Rods Not Reportable 04/18/22 05:13 Platelet Estimate Consistent w auto 04/18/22 05:13 Clumped Platelets Not Reportable 04/18/22 05:13 Plt Clumps, EDTA Not Reportable 04/18/22 05:13 Large Platelets Not Reportable 04/18/22 05:13 Giant Platelets Not Reportable 04/18/22 05:13 Platelet Satelliting Not Reportable 04/18/22 05:13 Plt Morphology Comment Not Reportable 04/18/22 05:13 RBC Morphology Not Reportable 04/18/22 05:13 Dimorphic RBCs Not Reportable 04/18/22 05:13 Polychromasia Not Reportable 04/18/22 05:13 Hypochromasia Not Reportable 04/18/22 05:13 Poikilocytosis Not Reportable 04/18/22 05:13 Anisocytosis Not Reportable 04/18/22 05:13 Microcytosis Not Reportable 04/18/22 05:13 Macrocytosis Not Reportable 04/18/22 05:13 Spherocytes Not Reportable 04/18/22 05:13 Pappenheimer Bodies Not Reportable 04/18/22 05:13 Sickle Cells Not Reportable 04/18/22 05:13 Target Cells 1+ 04/18/22 05:13 Tear Drop Cells Not Reportable 04/18/22 05:13 Ovalocytes Not Reportable 04/18/22 05:13 Helmet Cells Not Reportable 04/18/22 05:13 [employer] Bodies Not Reportable 04/18/22 05:13 [place] Rings Not Reportable 04/18/22 05:13 [place] Cells Not Reportable 04/18/22 05:13 Bite Cells Not Reportable 04/18/22 05:13 Crenated Cell Not Reportable 04/18/22 05:13 Elliptocytes Not Reportable 04/18/22 05:13 Acanthocytes (Spur) Not Reportable 04/18/22 05:13 Rouleaux Not Reportable 04/18/22 05:13 Hemoglobin C Crystals Not Reportable 04/18/22 05:13 Schistocytes Not Reportable 04/18/22 05:13 Malaria parasites Not Reportable 04/18/22 05:13 [place] Bodies Not Reportable 04/18/22 05:13 Hem Pathologist Commnt No 04/18/22 05:13 PT 20.5 Sec. (12.2-14.9) H 04/10/22 18:14 INR 1.51 (0.87-1.13) H 04/10/22 18:14 D-Dimer 1939.20 ng/mlDDU (0-234) H 04/10/22 21:28 Sodium 140 mmol/L (137-145) 04/19/22 04:54 Potassium 3.9 mmol/L (3.6-5.0) 04/19/22 04:54 Chloride 100.7 mmol/L (98-107) 04/19/22 04:54 Carbon Dioxide 27 mmol/L (22-30) 04/19/22 04:54 Anion Gap 16 mmol/L 04/19/22 04:54 BUN 16 mg/dL (9-20) 04/19/22 04:54 Creatinine 0.8 mg/dL (0.8-1.3) 04/19/22 04:54 Estimated GFR > 60 ml/min 04/19/22 04:54 BUN/Creatinine Ratio 20 % 04/19/22 04:54 Glucose 101 mg/dL (75-100) H 04/19/22 04:54 Lactic Acid 2.70 mmol/L (0.7-2.0) H* 04/10/22 18:14 Calcium 8.6 mg/dL (8.4-10.2) 04/19/22 04:54 Magnesium 2.20 mg/dL (1.7-2.3) 04/12/22 04:09 Ferritin 186.3 ng/mL (30.0-300.0) 04/10/22 21:28 Total Bilirubin 17.40 mg/dL (0.1-1.2) H 04/13/22 04:27 Direct Bilirubin 11.8 mg/dL (0-0.2) H 04/13/22 04:27 Indirect Bilirubin 5.6 mg/dL 04/13/22 04:27 AST 29 units/L (5-40) 04/13/22 04:27 ALT 33 units/L (7-56) 04/13/22 04:27 Alkaline Phosphatase 114 units/L (35-129) 04/13/22 04:27 Lactate Dehydrogenase 310 units/L (91-180) H 04/10/22 21:28 Total Creatine Kinase 268 units/L (55-170) H 04/10/22 18:14 Troponin T 0.016 ng/mL (0.00-0.029) 04/11/22 16:37 C-Reactive Protein 15.60 mg/dL (0.00-1.30) H 04/10/22 21:28 NT-Pro-B Natriuret Pep > 98602 pg/mL (0-450) H 04/10/22 18:14 Total Protein 6.1 g/dL (6.3-8.2) L 04/13/22 04:27 Albumin 3.0 g/dL (3.9-5) L 04/13/22 04:27 Albumin/Globulin Ratio 1.0 % 04/13/22 04:27 Lipase 19 units/L (13-60) 04/10/22 18:14 Procalcitonin 46.51 ng/mL (<0.15) 04/10/22 21:28 Urine Creatinine 75.0 mg/dL (0.1-20.0) H 04/13/22 16:00 Urine Sodium 12 mmol/L 04/13/22 16:00 Gentamicin Peak 3.7 ug/mL (5.0-10.0) L 04/17/22 14:39 Gentamicin Trough 0.7 ug/mL (0-2.0) 04/19/22 10:02 Vancomycin Trough 21.3 ug/mL (5.0-20.0) H 04/13/22 13:00 SARS-CoV-2 (PCR) Negative (Negative) 04/11/22 11:55 Microbiology: Microbiology 04/14/22 06:58 Peripheral/Venous Blood Culture - Final NO GROWTH AFTER 5 DAYS 04/13/22 23:30 Peripheral/Venous Blood Culture - Final NO GROWTH AFTER 5 DAYS Carvajal/IV: Voiding Method Urinal Active Medications - Current Medications Current Medications: Generic Name Dose Route Start Last Admin Trade Name Freq PRN Reason Stop Dose Admin Acetaminophen 650 mg 04/10/22 21:09 Acetaminophen 325 Mg Tab PO Q4H PRN Pain MILD(1-3)/Fever >100.5/PEREZ Apixaban 5 mg 04/10/22 22:00 04/19/22 09:45 Apixaban 5 Mg Tab PO 5 mg BID SARAH Administration Atorvastatin Calcium 10 mg 04/10/22 22:00 04/18/22 21:46 Atorvastatin 10 Mg Tab PO 10 mg QHS SARAH Administration Calcium Carbonate/Glycine 500 mg 04/12/22 14:00 Calcium Carbonate 500 Mg Tab Chew PO Q4H PRN Indigestion Furosemide 40 mg 04/18/22 18:00 04/19/22 05:26 Furosemide 40 Mg/4 Ml Inj IV 40 mg 0600,1800 SARAH Administration Nafcillin Sodium 2 gm/ Sodium 100 mls @ 100 mls/30 min 04/14/22 13:00 04/19/22 15:05 Chloride IV 100 mls/30 min Q4H SARAH Administration Protocol Gentamicin Sulfate/Sodium Chloride 120 mg in 100 mls @ 200 mls/hr 04/19/22 14:00 04/19/22 15:05 Gentamicin/Ns 120mg/100ml IV 200 mls/hr Q24H SARAH Administration Metoclopramide HCl 10 mg 04/10/22 21:09 Metoclopramide 10 Mg/2 Ml Inj IV Q6H PRN Nausea And Vomiting Midodrine 5 mg 04/17/22 12:00 04/19/22 15:04 Midodrine 5 Mg Tab PO 5 mg TID@0800,1200,1600 SARAH Administration Morphine Sulfate 2 mg 04/10/22 21:09 04/19/22 02:03 Morphine 2 Mg/1 Ml Inj IV 2 mg Q4H PRN Administration Pain, Moderate (4-6) Ondansetron HCl 4 mg 04/10/22 21:09 04/15/22 11:01 Ondansetron 4 Mg/2 Ml Inj IV 4 mg Q3H PRN Administration Nausea And Vomiting Oxycodone/Acetaminophen 1 tab 04/11/22 21:38 04/17/22 21:37 Oxycodone /Acetaminophen 5-325mg Tab PO 1 tab Q4H PRN Administration Pain, Moderate (4-6) Rifampin 300 mg 04/18/22 06:00 04/19/22 15:04 Rifampin 300 Mg Cap PO 300 mg Q8H SARAH Administration Senna/Docusate Sodium 1 tab 04/12/22 22:00 04/18/22 21:46 Sennosides/Docusate Sodium 8.6/50 Mg Tab PO 1 tab QHS SARAH Administration Sodium Chloride 10 ml 04/10/22 22:00 04/19/22 09:48 Sodium Chloride 0.9% 10 Ml Flush Syringe IV 10 ml BID SARAH Administration Sodium Chloride 10 ml 04/10/22 21:09 Sodium Chloride 0.9% 10 Ml Flush Syringe IV PRN PRN LINE FLUSH Tramadol HCl 50 mg 04/16/22 10:30 04/19/22 09:44 Tramadol 50 Mg Tab PO 50 mg Q6H PRN Administration Pain, Moderate (4-6) Nutrition/Malnutrition Assess - Dietary Evaluation Nutrition/Malnutrition Findings: Nutrition Notes Start: 04/17/22 12:26 Freq: Status: Active Protocol: Document 04/17/22 12:26 RODRI (Rec: 04/17/22 12:42 RODRI [id number]) Nutrition Notes Need for Assessment generated from: LOS Initial or Follow up Assessment Current Diagnosis Acute Kidney Injury,Sepsis, Hypertension Other Pertinent Diagnosis Endocarditis, Cardiomyopathy, Bacteremia, HFrEF, Liver Disease, EtOH Abuse. Current Diet Cardiac Diet (since L 04/14). Labs/Tests 04/17: Na 134, Crea 0.6, Glu 104, Ca 8.3. Pertinent Medications 04/17: Nutritionally unremarkable. 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 Subjective/Other Information RD consult for LOS assessment. Pt's PO intake of meals has been Good (75%) and well tolerated, according to ADL notes. Pt is on Room Air, O2 saturation @ 96%, according to Physical Assessment History notes. Pt had diarrhea and complaied of abdominal pain at admission , according to History & Physical notes. Pt is waiting to be transferred to [facility], according to Progress notes.. Percent of energy/protein needs met: Prescribed Cardiac Diet provides for energy/protein needs (2,230 Kcal/85 g) during LOS. Burn Absent Trauma Absent GI Symptoms None Food Allergy No Skin Integrity/Comment Assessment WNL. 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 No Is Patient Ambulatory and/or Out of Bed Yes REE-([facility]-ambulatory/OOB) [ 2481.219 [id number]] Kcal/Kg value to use for calculation 17 Approximate Energy Requirements Using 1802 kcal/Kg Calculation Used for Recommendations Kcal/kg Additional Notes Protein: 0.8-1.2 g/Kg AdjBW; 70-104 g/day. Fluids: 1 ml/Kcal, or as per MD. Nutrition Intervention Change Diet Order: Continue Cardiac Diet. Revisit per MD consult or patient Sign Off request: Additional Comments Continue monitoring food tolerance, %PO intake of meals , and BM.
[2022-04-19] MEDS: SENNOSIDES/DOCUSATE SODIUM 8.6/50 MG TAB PO SCH (22:17)
[2022-04-20] MEDS: NAFCILLIN 2 GM in SODIUM CHLORIDE 0.9% 100 ML IV SCH ×6 (01:51→21:32)
[2022-04-20] MEDS: MORPHINE 2 MG/1 ML INJ IV PRN (02:03)
[2022-04-20] MEDS: FUROSEMIDE 40 MG/4 ML INJ IV SCH ×2 (05:45→18:00)
[2022-04-20] MEDS: rifAMPin 300 MG CAP PO SCH ×3 (05:45→21:33)
[2022-04-20 06:04] LABS: Basophils % (Auto) 0.4 % (0.0-1.8); Eosinophils # (Auto) 0.1 K/mm3 (0.0-0.4); Eosinophils % (Auto) 0.9 % (0.0-4.3); Hemoglobin 13.3 gm/dl (11.8-15.2); Lymphocytes % (Auto) 9.2 % (13.4-35.0); Mean Corpuscular HGB Conc 33 % (32-34); Mean Corpuscular Volume 83 fl (84-94); Monocytes # (Auto) 1.1 K/mm3 (0.0-0.8); Monocytes % (Auto) 9.3 % (0.0-7.3); Platelet Count 281 K/mm3 (140-440); Red Blood Count 4.82 M/mm3 (3.65-5.03)
[2022-04-20 06:19] LABS: BUN/Creatinine Ratio 21; Blood Urea Nitrogen 19 mg/dL (9-20); Calcium 8.7 mg/dL (8.4-10.2); Hemolysis Index 21
[2022-04-20] MEDS: MIDODRINE 5 MG TAB PO SCH ×3 (08:00→17:49)
--- NOTE | 2022-04-20 10:41 | Progress Note ---
Assessment and Plan Pt is a 46-year-old AA male with a hx of HFrEF/NICMP (EF 10-15%), PAFlutter (on Eliquis), CHB s/p PPM (Medtronic), bioprosthetic MV, TV repair, and HTN who presented with complaints of generalized weakness, fever/chills, abdominal pain, N/V, and diarrhea. Abd Pain / Diarrhea Endocarditis-ID following Sepsis Shock (septic +/- cardiogenic) HFrEF / NICMP KAYLIN Hyponatremia PAFlutter (on Eliquis 5mg BID) S/p DENVER Occlusion (11/2016) H/o Severe MR s/p Bioprosthetic MV (11/2016) S/p TV Repair/Ring Annuloplasty (11/2016) H/o CHB s/p PPM (Medtronic) H/o HTN Liver Disease/Chronic Jaundice H/o EtOH Abuse H/o Tobacco Abuse Limited echo 04/13/2022-EF 10 to 15%. Severe global hypokinesis of left ventricle. Device is present in right atrium. Device lead is present in right ventricle. Right ventricle is moderately hypokinetic PRATIMA 04/14/2022-EF 10 to 15% severe global hypokinesis of left ventricle. No thrombus noted in LV. Right ventricle severely hypokinetic. Device lead is present in right ventricle. No vegetations. Device lead is present in right atrium. No vegetations no left atrial appendage with normal left pulmonary vein. Saline bubble study did not demonstrate PFO. Mitral valve vegetation is present on bioprosthetic mitral valve. Bioprosthetic mitral valve present. No tricuspid valve vegetations. No pulmonic valve vegetations. No aortic valvular vegetation. Echo 04/01/2022: EF 10 to 15%. Left ventricle is mildly dilated. Severe global hypokinesis of left ventricle. Left ventricular end-diastolic pressure is elevated. Right ventricle is dilated. Right ventricle is hypokinetic. Device lead is present in right ventricle. Left atrium is mildly dilated. Right atrium is dilated. Bioprosthetic mitral valve is present. Mild to moderate tricuspid regurgitation. RVSP 41mmHg. Echo 05/2018: EF 15-20%, LA and RA dilated, RV dilated and hypokinetic, pacemaker electrode in right sided chambers, bioprosthetic valve in mitral position functioning normally, mod AR, no , mod TR, pulm HTN RVSP 65mmHg. Lexiscan MPI stress test 10/2018: Negative for ischemia, EF 15%. Outpatient Medications: carvedilol 25 mg p.o. twice daily, Entresto 24-26 mg p.o. twice daily, Lasix 40 mg p.o. twice daily, Aldactone 25 mg p.o daily, Eliquis for anticoagulation. Plan: Patient awaiting transferred to [place] for further evaluation and management. Dr Srini Saunders is the accepting physician GDMT for HF on hold in the setting of shock and hypotension currently requiring midodrine to 5 mg p.o. 3 times daily Anticoagulated on Eliquis Continue lasix 40mg IV BID Close monitoring of renal function and repeat BMP in the a.m. Discussed plan of care with patient who verbalized understanding and acknowledgment Pt seen in conjunction with Dr. Way, who agrees with the assessment and plan of care. - Patient Problems (1) Sepsis Current Visit: Yes Status: Acute Qualifiers: Severe sepsis shock status: with septic shock (2) Shock Current Visit: Yes Status: Acute (3) Cardiac pacemaker in situ Current Visit: Yes Status: Chronic (4) H/O tricuspid valve repair Current Visit: Yes Status: Chronic (5) HFrEF (heart failure with reduced ejection fraction) Current Visit: Yes Status: Chronic (6) History of mitral valve replacement with bioprosthetic valve Current Visit: Yes Status: Chronic (7) Hyperbilirubinemia Current Visit: Yes Status: Chronic (8) Nonischemic cardiomyopathy Current Visit: Yes Status: Chronic (9) Paroxysmal atrial flutter Current Visit: Yes Status: Chronic (10) Abdominal pain Current Visit: No Status: Acute (11) AICD (automatic cardioverter/defibrillator) present Current Visit: No Status: Chronic (12) Endocarditis Current Visit: Yes Status: Acute Subjective Date of service: 04/20/22 Principal diagnosis: IE, HFrEF Interval history: Patient resting in bed in no acute distress. Patient reports feeling better this a.m. Paced rhythm 80s Objective Vital Signs Temp Pulse Resp BP BP Pulse Ox 04/20/22 08:11 97.5 F L 82 83 H 108/74 18 L 04/20/22 04:00 98.1 F 89 14 93 04/20/22 03:36 98.1 F 89 14 107/63 93 04/19/22 23:16 98.0 F 89 16 114/70 99 04/19/22 23:02 97.8 F 86 113/66 04/19/22 22:00 86 90 04/19/22 20:00 97.8 F 69 16 113/66 90 04/19/22 19:18 98.3 F 87 18 110/73 97 04/19/22 16:42 98.2 F 17 111/73 04/19/22 16:00 98.2 F 88 112/69 04/19/22 12:01 97.4 F L 19 117/79 04/19/22 12:00 98.2 F 88 112/69 - Physical Examination General: No Apparent Distress HEENT: Positive: EOMI, Jaundice, Normocephaly Neck: Positive: neck supple, trachea midline. Negative: JVD/HJR Cardiac: Positive: Reg Rate and Rhythm Lungs: Positive: Normal Breath Sounds Neuro: Positive: Grossly Intact Abdomen: Positive: Distended. Negative: Tender Skin: Negative: Rash Musculoskeletal: No Pain Extremities: Present: upper extr. pulses, edema, warm - Labs and Meds CBC 04/20/22 Range/Units 05:27 WBC 11.4 H (4.5-11.0) K/mm3 RBC 4.82 (3.65-5.03) M/mm3 Hgb 13.3 (11.8-15.2) gm/dl Hct 40.0 (35.5-45.6) % Plt Count 281 (140-440) K/mm3 Lymph # (Auto) 1.0 L (1.2-5.4) K/mm3 [place] # (Auto) 1.1 H (0.0-0.8) K/mm3 Eos # (Auto) 0.1 (0.0-0.4) K/mm3 Baso # (Auto) 0.0 (0.0-0.1) K/mm3 Comprehensive Metabolic Panel 04/20/22 Range/Units 05:27 Sodium 140 (137-145) mmol/L Potassium 4.5 (3.6-5.0) mmol/L Chloride 97.8 L (98-107) mmol/L Carbon Dioxide 30 (22-30) mmol/L BUN 19 (9-20) mg/dL Creatinine 0.9 (0.8-1.3) mg/dL Glucose 105 H (75-100) mg/dL Calcium 8.7 (8.4-10.2) mg/dL - Imaging and Cardiology EKG: report reviewed, image reviewed Echo: report reviewed - Telemetry EKG Rhythm: Paced Pacemaker: ventricular pacing w/capt
--- NOTE | 2022-04-20 11:24 | Event Note ---
Date: 04/20/22 The patient was evaluated this morning, he was found to be hemodynamically stable. The patient is still pending transfer to [facility] for management of endocarditis of his bioprosthetic valve.
[2022-04-20] MEDS: APIXABAN 5 MG TAB PO SCH ×2 (11:45→21:33)
[2022-04-20] MEDS: GENTAMICIN/NS 120MG/100ML 120 MG/100 ML BAG IV SCH (14:10)
--- NOTE | 2022-04-20 19:13 | Progress Note ---
Assessment and Plan Cultures: Blood culture 04/10/2022 MSSA A/P: 46-year-old man past medical history nonischemic cardiomyopathy with low ejection fraction, ascites, chronic jaundice, hypertension, pacemaker in place, previous tricuspid and mitral valve replacements #Acute sepsis: With fevers leukocytosis. Secondary to MSSA bacteremia #MSSA bacteremia: Likely skin source. He is extremely high risk for invasive infection given his pacemaker, artificial tricuspid and mitral valves. 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 Recs: -Continue nafcillin -continue gentamicin dosed per pharmacy -Discussed with pharmacy, started rifampin with negative blood cultures. -Pending transfer to [place] Thank you for the consult, we will continue to follow. Christie Jefferson MD [facility] O: [phone] F: [phone] Subjective Date of service: 04/20/22 Principal diagnosis: IE, HFrEF Interval history: Afebrile, white count 11.4. Renal function remains normal. Repeat blood cultures negative. He awaits transfer to [place]. Objective - Exam Narrative Exam: Physical Exam: Constitutional: Alert, cooperative. No acute distress Head, Ears, Nose: Normocephalic, atraumatic. External ears, nose normal Eyes: Conjunctivae/corneas clear. No icterus. No ptosis. Neck: Supple, no meningeal signs Oral: dentition fair, no thrush Cardiovascular: S1, S2 normal. Respiratory: Good air entry, clear to auscultation bilaterally GI: Soft, non-tender; bowel sounds normal. No peritoneal signs. Musculoskeletal: No pedal edema, no cyanosis. Skin: No rash or abscess Hem/Lymphatic: No palpable cervical or supraclavicular nodes. No lymphangitis Psych: Mood ok. Affect normal Neurological: Awake, alert, oriented. No gross abnormality - Constitutional Vitals: Vital Signs Temp Pulse Resp BP Pulse Ox 98.6 F 84 83 H 117/73 18 L 04/20/22 17:47 04/20/22 17:47 04/20/22 08:11 04/20/22 17:47 04/20/22 08:11 Temperature -Last 24 Hours Temperature 98.6 F Temperature 97.5 F Temperature 98.1 F Temperature 98.1 F Temperature 98.0 F Temperature 97.8 F Temperature 97.8 F Temperature 98.3 F - Labs CBC & Chem 7: 04/20/22 05:27 04/20/22 05:27 Labs: Abnormal lab results 04/20/22 04/20/22 Range/Units 05:27 05:27 WBC 11.4 H (4.5-11.0) K/mm3 MCV 83 L (84-94) fl RDW 17.0 H (13.2-15.2) % Lymph % (Auto) 9.2 L (13.4-35.0) % [place] % (Auto) 9.3 H (0.0-7.3) % Lymph # (Auto) 1.0 L (1.2-5.4) K/mm3 [place] # (Auto) 1.1 H (0.0-0.8) K/mm3 Seg Neutrophils % 80.2 H (40.0-70.0) % Seg Neutrophils # 9.1 H (1.8-7.7) K/mm3 Chloride 97.8 L (98-107) mmol/L Glucose 105 H (75-100) mg/dL
[2022-04-20] MEDS: SENNOSIDES/DOCUSATE SODIUM 8.6/50 MG TAB PO SCH (21:33)
[2022-04-20] MEDS: oxyCODONE /ACETAMINOPHEN 5-325MG TAB PO PRN (21:34)
[2022-04-21] MEDS: NAFCILLIN 2 GM in SODIUM CHLORIDE 0.9% 100 ML IV SCH ×6 (01:36→22:11)
[2022-04-21] MEDS: FUROSEMIDE 40 MG/4 ML INJ IV SCH ×2 (05:02→17:08)
[2022-04-21] MEDS: rifAMPin 300 MG CAP PO SCH ×3 (05:02→22:29)
[2022-04-21 06:34] LABS: Basophils % (Auto) 0.4 % (0.0-1.8); Eosinophils # (Auto) 0.1 K/mm3 (0.0-0.4); Eosinophils % (Auto) 0.7 % (0.0-4.3); Hematocrit 36.8 % (35.5-45.6); Hemoglobin 12.6 gm/dl (11.8-15.2); Lymphocytes # (Auto) 0.9 K/mm3 (1.2-5.4); Lymphocytes % (Auto) 9.1 % (13.4-35.0); Mean Corpuscular HGB Conc 34 % (32-34); Mean Corpuscular Volume 82 fl (84-94); Monocytes # (Auto) 1.1 K/mm3 (0.0-0.8); Monocytes % (Auto) 11.4 % (0.0-7.3); Platelet Count 296 K/mm3 (140-440); Red Blood Count 4.47 M/mm3 (3.65-5.03); Red Cell Distribution Width 17.2 % (13.2-15.2)
[2022-04-21 07:13] LABS: BUN/Creatinine Ratio 20; Blood Urea Nitrogen 18 mg/dL (9-20); Calcium 8.8 mg/dL (8.4-10.2); Hemolysis Index 16
[2022-04-21] MEDS: MIDODRINE 5 MG TAB PO SCH ×3 (09:30→17:08)
[2022-04-21] MEDS: APIXABAN 5 MG TAB PO SCH ×2 (09:31→22:03)
--- NOTE | 2022-04-21 11:46 | Progress Note ---
Assessment and Plan Pt is a 46-year-old AA male with a hx of HFrEF/NICMP (EF 10-15%), PAFlutter (on Eliquis), CHB s/p PPM (Medtronic), bioprosthetic MV, TV repair, and HTN who presented with complaints of generalized weakness, fever/chills, abdominal pain, N/V, and diarrhea. Abd Pain / Diarrhea Endocarditis-ID following Sepsis Shock (septic +/- cardiogenic) HFrEF / NICMP KAYLIN Hyponatremia PAFlutter (on Eliquis 5mg BID) S/p DENVER Occlusion (11/2016) H/o Severe MR s/p Bioprosthetic MV (11/2016) S/p TV Repair/Ring Annuloplasty (11/2016) H/o CHB s/p PPM (Medtronic) H/o HTN Liver Disease/Chronic Jaundice H/o EtOH Abuse H/o Tobacco Abuse Limited echo 04/13/2022-EF 10 to 15%. Severe global hypokinesis of left ventricle. Device is present in right atrium. Device lead is present in right ventricle. Right ventricle is moderately hypokinetic PRATIMA 04/14/2022-EF 10 to 15% severe global hypokinesis of left ventricle. No thrombus noted in LV. Right ventricle severely hypokinetic. Device lead is present in right ventricle. No vegetations. Device lead is present in right atrium. No vegetations no left atrial appendage with normal left pulmonary vein. Saline bubble study did not demonstrate PFO. Mitral valve vegetation is present on bioprosthetic mitral valve. Bioprosthetic mitral valve present. No tricuspid valve vegetations. No pulmonic valve vegetations. No aortic valvular vegetation. Echo 04/01/2022: EF 10 to 15%. Left ventricle is mildly dilated. Severe global hypokinesis of left ventricle. Left ventricular end-diastolic pressure is elevated. Right ventricle is dilated. Right ventricle is hypokinetic. Device lead is present in right ventricle. Left atrium is mildly dilated. Right atrium is dilated. Bioprosthetic mitral valve is present. Mild to moderate tricuspid regurgitation. RVSP 41mmHg. Echo 05/2018: EF 15-20%, LA and RA dilated, RV dilated and hypokinetic, pacemaker electrode in right sided chambers, bioprosthetic valve in mitral position functioning normally, mod AR, no , mod TR, pulm HTN RVSP 65mmHg. Lexiscan MPI stress test 10/2018: Negative for ischemia, EF 15%. Outpatient Medications: carvedilol 25 mg p.o. twice daily, Entresto 24-26 mg p.o. twice daily, Lasix 40 mg p.o. twice daily, Aldactone 25 mg p.o daily, Eliquis for anticoagulation. Plan: Patient awaiting transferred to [place] for further evaluation and management. Dr Srini Saunders is the accepting physician GDMT for HF on hold in the setting of shock and hypotension currently requiring midodrine to 5 mg p.o. 3 times daily Anticoagulated on Eliquis Continue lasix 40mg IV BID Close monitoring of renal function and repeat BMP in the a.m. Discussed plan of care with patient who verbalized understanding and acknowledgment Pt seen in conjunction with Dr. Way, who agrees with the assessment and plan of care. - Patient Problems (1) Sepsis Current Visit: Yes Status: Acute Qualifiers: Severe sepsis shock status: with septic shock (2) Shock Current Visit: Yes Status: Acute (3) Cardiac pacemaker in situ Current Visit: Yes Status: Chronic (4) H/O tricuspid valve repair Current Visit: Yes Status: Chronic (5) HFrEF (heart failure with reduced ejection fraction) Current Visit: Yes Status: Chronic (6) History of mitral valve replacement with bioprosthetic valve Current Visit: Yes Status: Chronic (7) Hyperbilirubinemia Current Visit: Yes Status: Chronic (8) Nonischemic cardiomyopathy Current Visit: Yes Status: Chronic (9) Paroxysmal atrial flutter Current Visit: Yes Status: Chronic (10) Abdominal pain Current Visit: No Status: Acute (11) AICD (automatic cardioverter/defibrillator) present Current Visit: No Status: Chronic (12) Endocarditis Current Visit: Yes Status: Acute Subjective Date of service: 04/21/22 Principal diagnosis: IE, HFrEF Interval history: Patient resting in bed in no acute distress. Patient reports feeling well Paced rhythm 80s Objective Vital Signs Temp Pulse Resp BP BP Pulse Ox 04/21/22 08:04 96 04/21/22 07:55 98.3 F 85 116/81 97 04/21/22 03:49 98.0 F 87 20 108/70 98 04/20/22 23:33 98.3 F 89 18 106/62 95 04/20/22 22:31 98.3 F 24 L 24 122/80 98 04/20/22 22:00 96 04/20/22 19:53 98.3 F 84 24 122/80 98 04/20/22 17:47 98.6 F 84 117/73 - Physical Examination General: No Apparent Distress HEENT: Positive: EOMI, Jaundice, Normocephaly Neck: Positive: neck supple, trachea midline. Negative: JVD/HJR Cardiac: Positive: Reg Rate and Rhythm Lungs: Positive: Normal Breath Sounds Neuro: Positive: Grossly Intact Abdomen: Positive: Distended. Negative: Tender Skin: Negative: Rash Musculoskeletal: No Pain Extremities: Present: upper extr. pulses, edema, warm - Labs and Meds CBC 04/21/22 Range/Units 05:28 WBC 9.8 (4.5-11.0) K/mm3 RBC 4.47 (3.65-5.03) M/mm3 Hgb 12.6 (11.8-15.2) gm/dl Hct 36.8 (35.5-45.6) % Plt Count 296 (140-440) K/mm3 Lymph # (Auto) 0.9 L (1.2-5.4) K/mm3 [place] # (Auto) 1.1 H (0.0-0.8) K/mm3 Eos # (Auto) 0.1 (0.0-0.4) K/mm3 Baso # (Auto) 0.0 (0.0-0.1) K/mm3 Comprehensive Metabolic Panel 04/21/22 Range/Units 05:28 Sodium 135 L (137-145) mmol/L Potassium 3.7 (3.6-5.0) mmol/L Chloride 95.2 L (98-107) mmol/L Carbon Dioxide 29 (22-30) mmol/L BUN 18 (9-20) mg/dL Creatinine 0.9 (0.8-1.3) mg/dL Glucose 93 (75-100) mg/dL Calcium 8.8 (8.4-10.2) mg/dL - Imaging and Cardiology EKG: report reviewed, image reviewed Echo: report reviewed - Telemetry EKG Rhythm: Paced Pacemaker: ventricular pacing w/capt
[2022-04-21] MEDS: GENTAMICIN/NS 120MG/100ML 120 MG/100 ML BAG IV SCH (13:11)
--- NOTE | 2022-04-21 14:22 | Event Note ---
Date: 04/21/22 Patient was evaluated this morning, he was found to be hemodynamically stable. Patient still pending transfer to [facility] for management of endocarditis of bioprosthetic valve.
--- NOTE | 2022-04-21 17:13 | Progress Note ---
Assessment and Plan Cultures: Blood culture 04/10/2022 MSSA A/P: 46-year-old man past medical history nonischemic cardiomyopathy with low ejection fraction, ascites, chronic jaundice, hypertension, pacemaker in place, previous tricuspid and mitral valve replacements #Acute sepsis: With fevers leukocytosis. Secondary to MSSA bacteremia #MSSA bacteremia: Likely skin source. He is extremely high risk for invasive infection given his pacemaker, artificial tricuspid and mitral valves. 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 Recs: -Continue nafcillin -continue gentamicin dosed per pharmacy -Discussed with pharmacy, started rifampin with negative blood cultures. -Pending transfer to [place] Thank you for the consult, we will continue to follow. Christie Jefferson MD [facility] O: [phone] F: [phone] Subjective Date of service: 04/21/22 Principal diagnosis: IE, HFrEF Interval history: Afebrile, normal white count. Objective - Exam Narrative Exam: Physical Exam: Constitutional: Alert, cooperative. No acute distress Head, Ears, Nose: Normocephalic, atraumatic. External ears, nose normal Eyes: Conjunctivae/corneas clear. No icterus. No ptosis. Neck: Supple, no meningeal signs Oral: dentition fair, no thrush Cardiovascular: S1, S2 normal. Respiratory: Good air entry, clear to auscultation bilaterally GI: Soft, non-tender; bowel sounds normal. No peritoneal signs. Musculoskeletal: No pedal edema, no cyanosis. Skin: No rash or abscess Hem/Lymphatic: No palpable cervical or supraclavicular nodes. No lymphangitis Psych: Mood ok. Affect normal Neurological: Awake, alert, oriented. No gross abnormality - Constitutional Vitals: Vital Signs Temp Pulse Resp BP Pulse Ox 98.3 F 84 20 112/78 98 04/21/22 15:39 04/21/22 15:39 04/21/22 03:49 04/21/22 15:39 04/21/22 15:39 Temperature -Last 24 Hours Temperature 98.3 F Temperature 98.3 F Temperature 98.3 F Temperature 98.0 F Temperature 98.3 F Temperature 98.3 F Temperature 98.3 F Temperature 98.6 F - Labs CBC & Chem 7: 04/21/22 05:28 04/21/22 05:28 Labs: Abnormal lab results 04/21/22 04/21/22 Range/Units 05:28 05:28 MCV 82 L (84-94) fl RDW 17.2 H (13.2-15.2) % Lymph % (Auto) 9.1 L (13.4-35.0) % [place] % (Auto) 11.4 H (0.0-7.3) % Lymph # (Auto) 0.9 L (1.2-5.4) K/mm3 [place] # (Auto) 1.1 H (0.0-0.8) K/mm3 Seg Neutrophils % 78.4 H (40.0-70.0) % Sodium 135 L (137-145) mmol/L Chloride 95.2 L (98-107) mmol/L
[2022-04-21] MEDS: oxyCODONE /ACETAMINOPHEN 5-325MG TAB PO PRN (22:12)
[2022-04-21] MEDS: SENNOSIDES/DOCUSATE SODIUM 8.6/50 MG TAB PO SCH (22:12)
[2022-04-22] MEDS: NAFCILLIN 2 GM in SODIUM CHLORIDE 0.9% 100 ML IV SCH ×2 (01:59→05:29)
[2022-04-22] MEDS: FUROSEMIDE 40 MG/4 ML INJ IV SCH (05:29)
[2022-04-22] MEDS: rifAMPin 300 MG CAP PO SCH (05:36)
[2022-04-22 08:18] VITALS: BP 123/83
[2022-04-22 08:42] LABS: BUN/Creatinine Ratio 17; Blood Urea Nitrogen 19 mg/dL (9-20); Calcium 8.9 mg/dL (8.4-10.2); Hemolysis Index 3
[2022-04-22] MEDS: MIDODRINE 5 MG TAB PO SCH (10:45)
[2022-04-22] MEDS: APIXABAN 5 MG TAB PO SCH (10:45)
--- NOTE | 2022-04-22 11:38 | Progress Note ---
Assessment and Plan Pt is a 46-year-old AA male with a hx of HFrEF/NICMP (EF 10-15%), PAFlutter (on Eliquis), CHB s/p PPM (Medtronic), bioprosthetic MV, TV repair, and HTN who presented with complaints of generalized weakness, fever/chills, abdominal pain, N/V, and diarrhea. Abd Pain / Diarrhea Endocarditis-ID following Sepsis Shock (septic +/- cardiogenic) HFrEF / NICMP KAYLIN Hyponatremia PAFlutter (on Eliquis 5mg BID) S/p [place] Occlusion (11/2016) H/o Severe MR s/p Bioprosthetic MV (11/2016) S/p TV Repair/Ring Annuloplasty (11/2016) H/o CHB s/p PPM (Medtronic) H/o HTN Liver Disease/Chronic Jaundice H/o EtOH Abuse H/o Tobacco Abuse Limited echo 04/13/2022-EF 10 to 15%. Severe global hypokinesis of left ventricle. Device is present in right atrium. Device lead is present in right ventricle. Right ventricle is moderately hypokinetic PRATIMA 04/14/2022-EF 10 to 15% severe global hypokinesis of left ventricle. No thrombus noted in LV. Right ventricle severely hypokinetic. Device lead is present in right ventricle. No vegetations. Device lead is present in right atrium. No vegetations no left atrial appendage with normal left pulmonary vein. Saline bubble study did not demonstrate PFO. Mitral valve vegetation is present on bioprosthetic mitral valve. Bioprosthetic mitral valve present. No tricuspid valve vegetations. No pulmonic valve vegetations. No aortic valvular vegetation. Echo 04/01/2022: EF 10 to 15%. Left ventricle is mildly dilated. Severe global hypokinesis of left ventricle. Left ventricular end-diastolic pressure is elevated. Right ventricle is dilated. Right ventricle is hypokinetic. Device lead is present in right ventricle. Left atrium is mildly dilated. Right atrium is dilated. Bioprosthetic mitral valve is present. Mild to moderate tricuspid regurgitation. RVSP 41mmHg. Echo 05/2018: EF 15-20%, LA and RA dilated, RV dilated and hypokinetic, pacemaker electrode in right sided chambers, bioprosthetic valve in mitral position functioning normally, mod AR, no , mod TR, pulm HTN RVSP 65mmHg. Lexiscan MPI stress test 10/2018: Negative for ischemia, EF 15%. Outpatient Medications: carvedilol 25 mg p.o. twice daily, Entresto 24-26 mg p.o. twice daily, Lasix 40 mg p.o. twice daily, Aldactone 25 mg p.o daily, Eliquis for anticoagulation. Plan: Patient awaiting transferred to [place] for further evaluation and management. Dr Srini Saunders is the accepting physician GDMT for HF on hold in the setting of shock and hypotension currently requiring midodrine Midodrine decreased to 5 mg p.o. 2 times daily Anticoagulated on Eliquis Continue lasix 40mg IV BID Close monitoring of renal function and repeat BMP in the a.m. Discussed plan of care with patient who verbalized understanding and acknowledgment Pt seen in conjunction with Dr. Way, who agrees with the assessment and plan of care. - Patient Problems (1) Sepsis Current Visit: Yes Status: Acute Qualifiers: Severe sepsis shock status: with septic shock (2) Shock Current Visit: Yes Status: Acute (3) Cardiac pacemaker in situ Current Visit: Yes Status: Chronic (4) H/O tricuspid valve repair Current Visit: Yes Status: Chronic (5) HFrEF (heart failure with reduced ejection fraction) Current Visit: Yes Status: Chronic (6) History of mitral valve replacement with bioprosthetic valve Current Visit: Yes Status: Chronic (7) Hyperbilirubinemia Current Visit: Yes Status: Chronic (8) Nonischemic cardiomyopathy Current Visit: Yes Status: Chronic (9) Paroxysmal atrial flutter Current Visit: Yes Status: Chronic (10) Abdominal pain Current Visit: No Status: Acute (11) AICD (automatic cardioverter/defibrillator) present Current Visit: No Status: Chronic (12) Endocarditis Current Visit: Yes Status: Acute Subjective Date of service: 04/22/22 Principal diagnosis: IE, HFrEF Interval history: Patient sitting in side of the bed patient reports feeling slightly weak this a.m. Patient denies any complaints of chest pain, shortness of breath Paced rhythm 80s Objective Vital Signs Temp Pulse Resp BP BP Pulse Ox 04/22/22 08:15 98.4 F 83 123/83 95 04/22/22 05:27 98.2 F 88 18 120/89 96 07/26/22 22:00 96 04/21/22 20:04 98.2 F 85 16 114/75 97 04/21/22 15:39 98.3 F 84 112/78 98 04/21/22 11:51 98.3 F 87 126/81 99 - Physical Examination General: No Apparent Distress HEENT: Positive: EOMI, Jaundice, Normocephaly Neck: Positive: neck supple, trachea midline. Negative: JVD/HJR Cardiac: Positive: Reg Rate and Rhythm Lungs: Positive: Normal Breath Sounds Neuro: Positive: Grossly Intact Abdomen: Positive: Distended. Negative: Tender Skin: Negative: Rash Musculoskeletal: No Pain Extremities: Present: upper extr. pulses, warm. Absent: edema - Labs and Meds Comprehensive Metabolic Panel 04/22/22 Range/Units 04:34 Sodium 137 (137-145) mmol/L Potassium 4.1 (3.6-5.0) mmol/L Chloride 94.8 L (98-107) mmol/L Carbon Dioxide 29 (22-30) mmol/L BUN 19 (9-20) mg/dL Creatinine 1.1 (0.8-1.3) mg/dL Glucose 81 (75-100) mg/dL Calcium 8.9 (8.4-10.2) mg/dL - Imaging and Cardiology EKG: report reviewed, image reviewed Echo: report reviewed - Telemetry EKG Rhythm: Paced Pacemaker: ventricular pacing w/capt
--- NOTE | 2022-04-22 13:01 | Event Note ---
Date: 04/22/22 The patient's RN notified the physician that the patient signed out AMA with a goal of driving himself to [facility] for further treatment.
[2022-04-22] MEDS ORDERED: MIDODRINE 5 MG TAB PO SCH (17:00)
== END 2022-04-22 11:45 | disposition left against medical advice (07) | DRG 314 ==
LOC: ED 13:40 → 3A 21:09 → CC1 04-11 16:32 → 4A 04-13 21:56
PROVIDERS: ADMIT Internal Medicine; ATTEND Student in an Organized Health Care Education/Training Program
PROC: 06HY33Z Insertion of Infusion Device into Lower Vein, Percutaneous Approach (ICD-10-PCS; principal; 2022-04-11)
PROC: B54BZZA Ultrasonography of Right Lower Extremity Veins, Guidance (ICD-10-PCS; 2022-04-11)
DX: T82.6XXA Infection and inflammatory reaction due to cardiac valve prosthesis, initial encounter (principal); A41.01 Sepsis due to Methicillin susceptible Staphylococcus aureus; J96.01 Acute respiratory failure with hypoxia; I50.23 Acute on chronic systolic (congestive) heart failure; R65.21 Severe sepsis with septic shock; E87.1 Hypo-osmolality and hyponatremia; N17.9 Acute kidney failure, unspecified; I48.92 Unspecified atrial flutter; I38 Endocarditis, valve unspecified; Z20.822 Contact with and (suspected) exposure to COVID-19; Z95.810 Presence of automatic (implantable) cardiac defibrillator; Z53.29 Procedure and treatment not carried out because of patient's decision for other reasons; I48.0 Paroxysmal atrial fibrillation; E78.2 Mixed hyperlipidemia; K21.9 Gastro-esophageal reflux disease without esophagitis; K76.9 Liver disease, unspecified; I25.5 Ischemic cardiomyopathy; M46.1 Sacroiliitis, not elsewhere classified; Y83.8 Other surgical procedures as the cause of abnormal reaction of the patient, or of later complication, without mention of misadventure at the time of the procedure; Y92.89 Other specified places as the place of occurrence of the external cause; Z83.3 Family history of diabetes mellitus; Z82.49 Family history of ischemic heart disease and other diseases of the circulatory system; Z82.3 Family history of stroke; Z87.891 Personal history of nicotine dependence
CPT/HCPCS: 36415; 71045; 71275; 74174; 80048; 80053; 80076; 80170; 80202; 82140; 82550; 82570; 82728; 82947; 83615; 83690; 83735; 83880; 84145; 84300; 84484; 85007; 85025; 85027; 85379; 85610; 86140; 87040; 87076; 87186; 93005; 93308; 93312; 93320; 93321; 93325; 94760; 99406; G0378; J2354; J3490; J0456; J0690; J0692; J0696; J1100; J1250; J1580; J1940; J2250; J2270; J2370; J2405; J2704; J3010; J3370; J7030; J7040; Q9967; U0003

== ENCOUNTER 2022-05-07 18:21 | Emergency (ER) | payer MEDICARE, MEDICAID ==
--- NOTE | 2022-05-07 20:54 | Emergency Department Report ---
ED General Adult HPI - General Chief complaint: Chest Pain Stated complaint: CAN'T FLUSH Time Seen by Provider: 05/07/22 20:35 Source: patient Mode of arrival: Ambulatory Limitations: No Limitations - History of Present Illness Initial comments: 46-year-old -[place]ish male with history of congestive heart failure, being treated through midline for MRSA, today tried to flush his line it did not work so he presented to the emergency department. Denies having any new fever chills or cough. Denies having any chest pain at this time -: Sudden Location: right, upper extremity Severity scale (0 -10): 2 Consistency: constant Improves with: none Worsens with: none Associated Symptoms: denies other symptoms Treatments Prior to Arrival: none - Related Data Previous Rx's Medication Instructions Recorded Last Taken Type carvediloL [Coreg] 25 mg PO BID 30 Days #60 tablet 04/06/22 04/12/22 Rx Acetaminophen [Acetaminophen TAB] 650 mg PO Q4H PRN tablet 04/14/22 Unknown Rx Apixaban [Eliquis] 5 mg PO BID tablet 04/14/22 Unknown Rx AtorvaSTATin 10 mg PO QHS tablet 04/14/22 Unknown Rx Benzocaine 20% Topical [place] 3 spray MM PREOP packet 04/14/22 Unknown Rx [Hurricaine One 20% Topical [place]] Calcium Carbonate [Tums 500MG CHEW] 500 mg PO Q4H PRN tablet 04/14/22 Unknown Rx Midodrine [Proamatine] 10 mg PO TID@0800,1200,1600 tablet 04/14/22 Unknown Rx Sennosides/Docusate [Senokot S] 1 tab PO QHS tablet 04/14/22 Unknown Rx oxyCODONE /ACETAMINOPHEN [Percocet 1 tab PO Q4H PRN tablet 04/14/22 Unknown Rx 5/325 mg] Allergies Allergy/AdvReac Type Severity Reaction Status Date / Time No Known Allergies Allergy Verified 04/10/22 14:10 ED Review of Systems ROS: Stated complaint: CAN'T FLUSH Other details as noted in HPI Constitutional: no symptoms reported, chills ENT: as per HPI, throat pain Cardiovascular: as per HPI Endocrine: no symptoms reported Gastrointestinal: as per HPI Musculoskeletal: as per HPI Skin: as per HPI Neurological: as per HPI Psychiatric: as per HPI Hematological/Lymphatic: as per HPI ED Past Medical Hx - Past Medical History Hx Hypertension: Yes (prior hx; currently on midodrine ) Hx Congestive Heart Failure: Yes Hx Diabetes: No Hx Liver Disease: Yes Hx Renal Disease: Yes (KAYLIN) Hx Asthma: No Hx COPD: No - Surgical History Hx Open Heart Surgery: Yes Hx Pacemaker: Yes Hx Internal Defibrillator: Yes Additional Surgical History: AICD, mitral valve replacement with tissue prosthe sis 2016, tricuspid valve repair 11/26 done at 19. Paroxysmal atrial fibrillation - Social History Smoking Status: Never Smoker - Medications Home Medications: Home Medications Medication Instructions Recorded Confirmed Last Taken Type carvediloL [Coreg] 25 mg PO BID 30 Days #60 tablet 04/06/22 04/14/22 04/12/22 Rx Acetaminophen [Acetaminophen TAB] 650 mg PO Q4H PRN tablet 04/14/22 Unknown Rx Apixaban [Eliquis] 5 mg PO BID tablet 04/14/22 Unknown Rx AtorvaSTATin 10 mg PO QHS tablet 04/14/22 Unknown Rx Benzocaine 20% Topical [place] 3 spray MM PREOP packet 04/14/22 Unknown Rx [Hurricaine One 20% Topical [place]] Calcium Carbonate [Tums 500MG CHEW] 500 mg PO Q4H PRN tablet 04/14/22 Unknown Rx Midodrine [Proamatine] 10 mg PO TID@0800,1200,1600 tablet 04/14/22 Unknown Rx Sennosides/Docusate [Senokot S] 1 tab PO QHS tablet 04/14/22 Unknown Rx oxyCODONE /ACETAMINOPHEN [Percocet 1 tab PO Q4H PRN tablet 04/14/22 Unknown Rx 5/325 mg] ED Physical Exam - General Limitations: No Limitations General appearance: alert, in no apparent distress - Head Head exam: Present: atraumatic, normocephalic, normal inspection - Eye Eye exam: Present: normal appearance, PERRL - ENT ENT exam: Present: normal exam, normal orophraynx, mucous membranes moist - Neck Neck exam: Present: normal inspection - Respiratory Respiratory exam: Present: normal lung sounds bilaterally. Absent: respiratory distress, rales, rhonchi - Cardiovascular Cardiovascular Exam: Present: regular rate, normal rhythm, normal heart sounds - GI/Abdominal GI/Abdominal exam: Present: soft, normal bowel sounds. Absent: distended, tenderness, guarding, rebound - Extremities Exam Extremities exam: Present: normal inspection, full ROM, other (Right midline catheter intact. No drainage. No erythema around site.) - Back Exam Back exam: Present: normal inspection - Neurological Exam Neurological exam: Present: alert, oriented X3, CN II-XII intact, normal gait. Absent: motor sensory deficit ED Course Vital Signs 05/07/22 05/07/22 18:40 20:02 Temperature 98.7 F Pulse Rate 82 Respiratory 82 H 20 Rate Blood Pressure 87/40 [Left] O2 Sat by Pulse 99 97 Oximetry ED Medical Decision Making - Medical Decision Making Patient had midline catheter flushed and feels much improved. Patient has no chest pain at this time discharge patient to continue IV medications at home. Critical Care Time: No Critical care attestation.: If time is entered above; I have spent that time in minutes in the direct care of this critically ill patient, excluding procedure time. ED Disposition Clinical Impression: Problem with intravenous catheter, Acute CHF (congestive heart failure), Systemic inflammatory response syndrome (SIRS) Disposition: HOME / SELF CARE / HOMELESS Is pt being admited?: No Does the pt Need Aspirin: No Condition: Good Instructions: Heart Failure, Self Care, [id number] Additional Instructions: Must see This week. Return if any fever Referrals: MARIJA GALLARDO MD [Primary Care Provider] - 3-5 Days
[2022-05-07 22:15] VITALS: BP 121/60
== END 2022-05-07 22:16 | disposition home or self-care (01) ==
LOC: ED 18:21
DX: T82.9XXA Unspecified complication of cardiac and vascular prosthetic device, implant and graft, initial encounter (principal); R65.10 Systemic inflammatory response syndrome (SIRS) of non-infectious origin without acute organ dysfunction; I11.0 Hypertensive heart disease with heart failure; I50.9 Heart failure, unspecified; K76.9 Liver disease, unspecified; N28.9 Disorder of kidney and ureter, unspecified; Z98.890 Other specified postprocedural states; Z79.899 Other long term (current) drug therapy
CPT/HCPCS: 99282

== ENCOUNTER 2022-05-08 16:27 | Inpatient (IN) | payer MEDICARE, MEDICAID ==
[2022-05-08] MEDS ORDERED: SODIUM CHLORIDE 0.9% 500 ML 500 ML IV ONE (17:31)
--- NOTE | 2022-05-08 17:39 | Emergency Department Report ---
ED Chest Pain HPI - General Chief Complaint: Chest Pain Stated Complaint: CHEST PAIN Time Seen by Provider: 05/08/22 17:14 Source: patient, EMS Mode of arrival: Stretcher Limitations: No Limitations - History of Present Illness Initial Comments: 46-year-old -[place]ian male with a history of coronary artery disease, congestive heart failure, being treated for MRSA, signed out AGAINST MEDICAL ADVICE from the hospital, was given at midline to get IV antibiotics. Patient seen here last night after catheter did not work went home but says he got chest pain and shortness of breath last night. Admits to cough and possible fever. MD Complaint: chest pain -: Gradual, days(s) Onset: during rest, during exertion Pain Location: substernal Pain Radiation: none Severity scale (0 -10): 5 - Related Data Previous Rx's Medication Instructions Recorded Last Taken Type carvediloL [Coreg] 25 mg PO BID 30 Days #60 tablet 04/06/22 04/12/22 Rx Acetaminophen [Acetaminophen TAB] 650 mg PO Q4H PRN tablet 04/14/22 Unknown Rx Apixaban [Eliquis] 5 mg PO BID tablet 04/14/22 Unknown Rx AtorvaSTATin 10 mg PO QHS tablet 04/14/22 Unknown Rx Benzocaine 20% Topical [place] 3 spray MM PREOP packet 04/14/22 Unknown Rx [Hurricaine One 20% Topical [place]] Calcium Carbonate [Tums 500MG CHEW] 500 mg PO Q4H PRN tablet 04/14/22 Unknown Rx Midodrine [Proamatine] 10 mg PO TID@0800,1200,1600 tablet 04/14/22 Unknown Rx Sennosides/Docusate [Senokot S] 1 tab PO QHS tablet 04/14/22 Unknown Rx oxyCODONE /ACETAMINOPHEN [Percocet 1 tab PO Q4H PRN tablet 04/14/22 Unknown Rx 5/325 mg] Allergies Allergy/AdvReac Type Severity Reaction Status Date / Time No Known Allergies Allergy Verified 05/08/22 16:35 Heart Score - HEART Score History: Moderately suspicious EKG: Non-specific Age: < 45 Risk factors: 1-2 risk factors Troponin: < normal limit HEART Score: 3 - EKG Read Time Time EKG Completed: 18:20 EKG Read Time: 18:25 ED Review of Systems ROS: Stated complaint: CHEST PAIN Other details as noted in HPI ED Past Medical Hx - Past Medical History Previous Medical History?: Yes Hx Hypertension: Yes (prior hx; currently on midodrine ) Hx Congestive Heart Failure: Yes Hx Diabetes: No Hx Liver Disease: Yes Hx Renal Disease: Yes (KAYLIN) Hx Asthma: No Hx COPD: No - Surgical History Hx Open Heart Surgery: Yes Hx Pacemaker: Yes Hx Internal Defibrillator: Yes Additional Surgical History: AICD, mitral valve replacement with tissue prosthesis 2016, tricuspid valve repair 11/26 done at 19. Paroxysmal atrial fibrillation - Social History Smoking Status: Never Smoker - Medications Home Medications: Home Medications Medication Instructions Recorded Confirmed Last Taken Type carvediloL [Coreg] 25 mg PO BID 30 Days #60 tablet 04/06/22 04/14/22 04/12/22 Rx Acetaminophen [Acetaminophen TAB] 650 mg PO Q4H PRN tablet 04/14/22 Unknown Rx Apixaban [Eliquis] 5 mg PO BID tablet 04/14/22 Unknown Rx AtorvaSTATin 10 mg PO QHS tablet 04/14/22 Unknown Rx Benzocaine 20% Topical [place] 3 spray MM PREOP packet 04/14/22 Unknown Rx [Hurricaine One 20% Topical [place]] Calcium Carbonate [Tums 500MG CHEW] 500 mg PO Q4H PRN tablet 04/14/22 Unknown Rx Midodrine [Proamatine] 10 mg PO TID@0800,1200,1600 tablet 04/14/22 Unknown Rx Sennosides/Docusate [Senokot S] 1 tab PO QHS tablet 04/14/22 Unknown Rx oxyCODONE /ACETAMINOPHEN [Percocet 1 tab PO Q4H PRN tablet 04/14/22 Unknown Rx 5/325 mg] ED Physical Exam - General Limitations: No Limitations, Language Barrier General appearance: alert, in no apparent distress - Head Head exam: Present: atraumatic - Eye Eye exam: Present: normal appearance, PERRL, EOMI Pupils: Present: normal accommodation - ENT ENT exam: Present: mucous membranes moist - Neck Neck exam: Present: normal inspection - Respiratory Respiratory exam: Present: normal lung sounds bilaterally, rales, rhonchi. Absent: respiratory distress - Cardiovascular Cardiovascular Exam: Present: regular rate, normal rhythm. Absent: systolic murmur, diastolic murmur, rubs, gallop - GI/Abdominal GI/Abdominal exam: Present: soft, normal bowel sounds - Rectal Rectal exam: Present: deferred - Extremities Exam Extremities exam: Present: normal inspection, pedal edema - Back Exam Back exam: Present: normal inspection - Neurological Exam Neurological exam: Present: alert, oriented X3 - Psychiatric Psychiatric exam: Present: normal affect, normal mood - Skin Skin exam: Present: warm, dry, intact, normal color. Absent: rash ED Course Vital Signs 05/08/22 05/08/22 05/08/22 16:32 16:49 17:02 Temperature 99.2 F Pulse Rate 87 85 Respiratory 14 28 H Rate Blood Pressure Blood Pressure 80/40 [Left] O2 Sat by Pulse 99 98 96 Oximetry 05/08/22 05/08/22 05/08/22 17:15 17:31 17:45 Temperature Pulse Rate 81 82 82 Respiratory 24 20 26 H Rate Blood Pressure 83/42 78/41 74/37 Blood Pressure [Left] O2 Sat by Pulse 95 98 97 Oximetry 05/08/22 05/08/22 05/08/22 18:01 18:15 18:31 Temperature Pulse Rate 80 79 80 Respiratory 20 21 21 Rate Blood Pressure 85/47 84/51 87/51 Blood Pressure [Left] O2 Sat by Pulse 96 95 96 Oximetry 05/08/22 05/08/22 05/08/22 18:45 19:01 19:15 Temperature Pulse Rate 80 82 82 Respiratory 20 20 21 Rate Blood Pressure 87/51 83/55 91/53 Blood Pressure [Left] O2 Sat by Pulse 94 96 97 Oximetry 05/08/22 05/08/22 05/08/22 19:31 19:45 20:00 Temperature Pulse Rate 81 81 83 Respiratory 24 21 27 H Rate Blood Pressure 66/36 68/38 81/46 Blood Pressure [Left] O2 Sat by Pulse 93 93 97 Oximetry 05/08/22 05/08/22 05/08/22 20:15 20:30 21:27 Temperature 99.0 F Pulse Rate 82 81 Respiratory 28 H 22 Rate Blood Pressure 74/45 76/45 Blood Pressure [Left] O2 Sat by Pulse 92 94 Oximetry AMANDA score - Amanda Score Age > 65: (0) No 3 or more CAD Risk Factors: (0) No 2 or more Angina events in past 24 hrs: (1) Yes Known CAD with more than 50% Stenosis: (0) No ST Deviation Greater than 0.5mm: (0) No ED Medical Decision Making - Lab Data Result diagrams: 05/08/22 17:23 05/08/22 17:23 - EKG Data When compared to previous EKG there are: other (Paced rhythm) Interpretation: no acute changes - Radiology Data Possible congestive heart failure Critical Care Time: Yes Critical care attestation.: If time is entered above; I have spent that time in minutes in the direct care of this critically ill patient, excluding procedure time. Critical Care Time: 71 min ED Disposition Clinical Impression: Bacteremia Congestive heart failure (CHF) Qualifiers: Heart failure type: combined systolic and diastolic Heart failure chronicity: acute on chronic Qualified Code(s): I50.43 - Acute on chronic combined systolic (congestive) and diastolic (congestive) heart failure Disposition: 02 [facility]ORT TERM [facility]OSPITAL Is pt being admited?: Yes Does the pt Need Aspirin: No Condition: Critical
--- NOTE | 2022-05-08 17:41 | XRay Report ---
CHEST 1 VIEW INDICATION: Chest Pain. COMPARISON: 04/10/2022 FINDINGS: Support devices: Cardiac leads are unchanged. There has been interval placement of a right PICC. The tip projects over the SVC. Heart: Enlarged, unchanged. Lungs/Pleura: No acute pulmonary or pleural findings. IMPRESSION: 1. Persistent cardiomegaly. 2. No acute pulmonary or pleural findings. 3. Right PICC as above. Signer Name: Rafael Moreno MD Signed: 05/08/2022 5:36 PM Workstation Name: [id number]
[2022-05-08 17:44] LABS: Hematocrit 25.4 % (35.5-45.6); Hemoglobin 8.4 gm/dl (11.8-15.2); Mean Corpuscular HGB Conc 33 % (32-34); Mean Corpuscular Volume 90 fl (84-94); Platelet Count 256 K/mm3 (140-440); Red Blood Count 2.82 M/mm3 (3.65-5.03)
[2022-05-08 17:46] LABS: Red Cell Distribution Width 23.1 % (13.2-15.2)
[2022-05-08 18:00] LABS: INR 1.37 (0.87-1.13)
[2022-05-08 18:01] LABS: Partial Thromboplastin Time 42.3 Sec. (24.2-36.6)
[2022-05-08 18:07] LABS: Albumin 3.4 g/dL (3.9-5); BUN/Creatinine Ratio 28; Blood Urea Nitrogen 48 mg/dL (9-20); Calcium 8.1 mg/dL (8.4-10.2); Hemolysis Index 0
[2022-05-08 18:11] LABS: Alanine Aminotransferase < 5 units/L (7-56)
[2022-05-08 18:28] LABS: Anisocytosis 2+; Large Platelets Few; Platelet Estimate Consistent w Auto; Target Cells 2+; Total Cells Counted 100
[2022-05-08] MEDS ORDERED: DOPamine 800 MG/D5W 250ML 800 MG/250 ML BAG IV ONE (18:28)
[2022-05-08] MEDS ORDERED: MORPHINE 4 MG/1 ML INJ ONE (21:37)
[2022-05-08] MEDS ORDERED: ONDANSETRON 4 MG/2 ML INJ ONE (21:40)
[2022-05-08] MEDS ORDERED: ceFAZolin/NS 1 GM/50 ML 1 GM/50 ML BAG IV ONE (21:51)
[2022-05-08] MEDS ORDERED: NORepinephrine/NS 8 MG-250 ML 8 MG/250 ML INFUS..BTL IV SCH (22:00)
[2022-05-08] MEDS ORDERED: VANCOMYCIN/NS 1 GM/250 ML 1 GM/250 ML BAG IV ONE (22:04)
[2022-05-08] MEDS ORDERED: ACETAMINOPHEN 325 MG TAB PO PRN (22:09)
[2022-05-08] MEDS ORDERED: ALBUTEROL 2.5 MG/3 ML NEBU IH PRN (22:09)
[2022-05-08] MEDS ORDERED: ONDANSETRON 4 MG/2 ML INJ IV PRN (22:09)
[2022-05-08] MEDS ORDERED: MORPHINE 4 MG/1 ML INJ IV PRN (22:09)
[2022-05-08] MEDS ORDERED: MORPHINE 2 MG/1 ML INJ IV PRN (22:09)
[2022-05-08] MEDS ORDERED: CALCIUM CARBONATE 500 MG TAB CHEW PO PRN (22:13)
--- NOTE | 2022-05-08 22:21 | History and Physical Report ---
History of Present Illness Date of examination: 05/08/22 Date of admission: 05/08/22 Chief complaint: Chest pain History of present illness: 46-year-old -[place] male with a history of coronary artery disease, congestive heart failure, renal failure status post AICD, mitral valve replacement with tissue prosthesis 11/2016 was brought to the emergency room be cause of chest pain. Patient is being treated for MRSA, signed out AGAINST MEDICAL ADVICE from the other hospital hospital, was given at midline to get IV antibiotics. Patient seen here last night after catheter did not work went home but says he got chest pain and shortness of breath last night. Admits to cough and possible fever. In the emergency room patient WBC is 9.4, troponin is 0.010 but BNP is 5393, chest x-ray shows persistent cardiomegaly. No acute pulmonary or pleural findings. Also patient blood pressure is 76/45. so going to admit the patient we will put the patient on critical care unit and patient is on dopamine drip, Levophed drip and consult cardiology and critical care evaluation Past History Past Medical History: heart failure, hypertension, renal failure, other (AICD, mitral valve replacement with tissue prosthesis 2016, tricuspid valve repair 3/ done at 19. Paroxysmal atrial fibrillation) Past Surgical History: Other (AICD, mitral valve replacement with tissue prosthesis 2016, tricuspid valve repair 11/26 done at 19. Paroxysmal atrial fibrillation, pacemaker internal defibrillator) Social history: no significant social history Family history: hypertension Medications and Allergies Allergies Allergy/AdvReac Type Severity Reaction Status Date / Time No Known Allergies Allergy Verified 05/08/22 16:35 Home Medications Medication Instructions Recorded Confirmed Last Taken Type carvediloL [Coreg] 25 mg PO BID 30 Days #60 tablet 04/06/22 04/14/22 04/12/22 Rx Acetaminophen [Acetaminophen TAB] 650 mg PO Q4H PRN tablet 04/14/22 Unknown Rx Apixaban [Eliquis] 5 mg PO BID tablet 04/14/22 Unknown Rx AtorvaSTATin 10 mg PO QHS tablet 04/14/22 Unknown Rx Benzocaine 20% Topical [place] 3 spray MM PREOP packet 04/14/22 Unknown Rx [Hurricaine One 20% Topical [place]] Calcium Carbonate [Tums 500MG CHEW] 500 mg PO Q4H PRN tablet 04/14/22 Unknown Rx Midodrine [Proamatine] 10 mg PO TID@0800,1200,1600 tablet 04/14/22 Unknown Rx Sennosides/Docusate [Senokot S] 1 tab PO QHS tablet 04/14/22 Unknown Rx oxyCODONE /ACETAMINOPHEN [Percocet 1 tab PO Q4H PRN tablet 04/14/22 Unknown Rx 5/325 mg] Active Meds: Active Medications Acetaminophen (Acetaminophen 325 Mg Tab) 650 mg PO Q4H PRN PRN Reason: Pain MILD(1-3)/Fever >100.5/PEREZ Albuterol (Albuterol 2.5 Mg/3 Ml Nebu) 2.5 mg IH Q3HRT PRN PRN Reason: Shortness Of Breath Albuterol/Ipratropium (Ipratropium/Albuterol Sulfate 3 Ml Ampul.Neb) 1 ampul IH Q6HRT SARAH Atorvastatin Calcium (Atorvastatin 10 Mg Tab) 10 mg PO QHS SARAH Benzocaine (Benzocaine 20% Top [place] 0.5 Ml Unit Dose) 3 spray MM PREOP SARAH Calcium Carbonate/Glycine (Calcium Carbonate 500 Mg Tab Chew) 500 mg PO Q4H PRN PRN Reason: Indigestion Carvedilol (Carvedilol 25 Mg Tab) 25 mg PO BID SARAH Famotidine (Famotidine 20 Mg Tab) 20 mg PO BID SARAH NORepinephrine/NS 8 MG-250 ML (Norepinephrine/Ns 8 Mg-250 Ml (Double Conc)) 8 mg in 250 mls @ 3.75 mls/hr IV TITRATE SARAH; Protocol Cefazolin Sodium (Ancef/Ns 1 Gm/50 Ml) 1 gm in 50 mls @ 100 mls/hr IV ONCE ONE; Protocol Stop: 05/08/22 22:20 Vancomycin HCl (Vancomycin/Ns 1 Gm/250 Ml) 1 gm in 250 mls @ 167.007 mls/hr IV ONCE ONE; Protocol Stop: 05/08/22 23:33 Midodrine (Midodrine 10 Mg Tab) 10 mg PO TID@0800,1200,1600 SARAH Miscellaneous Medication (Apixaban) 5 mg PO BID SARAH Morphine Sulfate (Morphine 2 Mg/1 Ml Inj) 2 mg IV Q4H PRN PRN Reason: Pain, Moderate (4-6) Morphine Sulfate (Morphine 4 Mg/1 Ml Inj) 4 mg IV Q4H PRN PRN Reason: Pain , Severe (7-10) Ondansetron HCl (Ondansetron 4 Mg/2 Ml Inj) 4 mg IV Q8H PRN PRN Reason: Nausea And Vomiting Sodium Chloride (Sodium Chloride 0.9% 10 Ml Flush Syringe) 10 ml IV BID SARAH Sodium Chloride (Sodium Chloride 0.9% 10 Ml Flush Syringe) 10 ml IV PRN PRN PRN Reason: LINE FLUSH Review of Systems All systems: negative Constitutional: fever Cardiovascular: chest pain Respiratory: cough Exam - Constitutional Vitals: Temp Pulse Resp BP Pulse Ox 99.0 F 81 22 76/45 94 05/08/22 21:27 05/08/22 20:30 05/08/22 20:30 05/08/22 20:30 05/08/22 20:30 General appearance: Present: no acute distress, well-nourished - EENT Eyes: Present: PERRL ENT: hearing intact, clear oral mucosa - Neck Neck: Present: supple, normal ROM - Respiratory Respiratory effort: normal Respiratory: bilateral: CTA - Cardiovascular Heart Sounds: Present: S1 & S2. Absent: rub, click - Extremities Extremities: pulses symmetrical, No edema Peripheral Pulses: within normal limits - Abdominal General gastrointestinal: Present: soft, non-tender, non-distended, normal bowel sounds Male genitourinary: Present: normal - Integumentary Integumentary: Present: clear, warm, dry - Musculoskeletal Musculoskeletal: gait normal, strength equal bilaterally - Psychiatric Psychiatric: appropriate mood/affect, intact judgment & insight - Neurologic Neurologic: CNII-XII intact, moves all extremities HEART Score - HEART Score Troponin: Troponin T < 0.010 ng/mL (0.00-0.029) 05/08/22 17:23 Results - Labs CBC & Chem 7: 05/08/22 17:23 05/08/22 17:23 Labs: Laboratory Last Values WBC 9.4 K/mm3 (4.5-11.0) 05/08/22 17:23 RBC 2.82 M/mm3 (3.65-5.03) L 05/08/22 17:23 Hgb 8.4 gm/dl (11.8-15.2) L 05/08/22 17:23 Hct 25.4 % (35.5-45.6) L 05/08/22 17: MCV 90 fl (84-94) 05/08/22 17:23 MCH 30 pg (28-32) 05/08/22 17: MCHC 33 % (32-34) 05/08/22 17: RDW 23.1 % (13.2-15.2) H 05/08/22 17:23 Plt Count 256 K/mm3 (140-440) 05/08/22 17: Add Manual Diff Complete 05/08/22 17: Total Counted 100 05/08/22 17: Seg Neuts % (Manual) 74.0 % (40.0-70.0) H 05/08/22 17: Band Neutrophils % 0 % 05/08/22 17: Lymphocytes % (Manual) 10.0 % (13.4-35.0) L 05/08/22 17: Reactive Lymphs % (Man) 0 % 05/08/22 17: Monocytes % (Manual) 12.0 % (0.0-7.3) H 05/08/22 17: Eosinophils % (Manual) 3.0 % (0.0-4.3) 05/08/22 17: Basophils % (Manual) 1.0 % (0.0-1.8) 05/08/22 17: Metamyelocytes % 0 % 05/08/22 17: Myelocytes % 0 % 05/08/22 17: Promyelocytes % 0 % 05/08/22 17: Blast Cells % 0 % 05/08/22 17: Nucleated RBC % Not Reportable 05/08/22 17: Seg Neutrophils # Man 7.0 K/mm3 (1.8-7.7) 05/08/22 17: Band Neutrophils # 0.0 K/mm3 05/08/22 17: Lymphocytes # (Manual) 0.9 K/mm3 (1.2-5.4) L 05/08/22 17: Abs React Lymphs (Man) 0.0 K/mm3 05/08/22 17: Monocytes # (Manual) 1.1 K/mm3 (0.0-0.8) H 05/08/22 17: Eosinophils # (Manual) 0.3 K/mm3 (0.0-0.4) 05/08/22 17:23 Basophils # (Manual) 0.1 K/mm3 (0.0-0.1) 05/08/22 17:23 Metamyelocytes # 0.0 K/mm3 05/08/22 17:23 Myelocytes # 0.0 K/mm3 05/08/22 17:23 Promyelocytes # 0.0 K/mm3 05/08/22 17:23 Blast Cells # 0.0 K/mm3 05/08/22 17:23 WBC Morphology Not Reportable 05/08/22 17:23 Hypersegmented Neuts Not Reportable 05/08/22 17:23 Hyposegmented Neuts Not Reportable 05/08/22 17:23 Hypogranular Neuts Not Reportable 05/08/22 17:23 Smudge Cells Not Reportable 05/08/22 17:23 Toxic Granulation Not Reportable 05/08/22 17:23 Toxic Vacuolation Not Reportable 05/08/22 17:23 Dohle Bodies Not Reportable 05/08/22 17:23 Pelger-Huet Anomaly Not Reportable 05/08/22 17:23 Gray Rods Not Reportable 05/08/22 17:23 Platelet Estimate Consistent w auto 05/08/22 17:23 Clumped Platelets Not Reportable 05/08/22 17:23 Plt Clumps, EDTA Not Reportable 05/08/22 17:23 Large Platelets Few 05/08/22 17:23 Giant Platelets Not Reportable 05/08/22 17:23 Platelet Satelliting Not Reportable 05/08/22 17:23 Plt Morphology Comment Not Reportable 05/08/22 17:23 RBC Morphology Not Reportable 05/08/22 17:23 Dimorphic RBCs Not Reportable 05/08/22 17:23 Polychromasia Few 05/08/22 17:23 Hypochromasia Not Reportable 05/08/22 17:23 Poikilocytosis Not Reportable 05/08/22 17:23 Anisocytosis 2+ 05/08/22 17:23 Microcytosis Not Reportable 05/08/22 17:23 Macrocytosis Not Reportable 05/08/22 17:23 Spherocytes Not Reportable 05/08/22 17:23 Pappenheimer Bodies Not Reportable 05/08/22 17:23 Sickle Cells Not Reportable 05/08/22 17:23 Target Cells 2+ 08/12/22 17:23 Tear Drop Cells Not Reportable 05/08/22 17:23 Ovalocytes Not Reportable 05/08/22 17:23 Helmet Cells Not Reportable 05/08/22 17:23 [place] Bodies Not Reportable 05/08/22 17:23 [place] Rings Not Reportable 05/08/22 17:23 Julio Cells Not Reportable 05/08/22 17:23 Bite Cells Not Reportable 05/08/22 17:23 Crenated Cell Not Reportable 05/08/22 17:23 Elliptocytes Not Reportable 05/08/22 17:23 Acanthocytes (Spur) Not Reportable 05/08/22 17:23 Rouleaux Not Reportable 05/08/22 17:23 Hemoglobin C Crystals Not Reportable 05/08/22 17:23 Schistocytes Not Reportable 05/08/22 17:23 Malaria parasites Not Reportable 05/08/22 17:23 Shubham Bodies Not Reportable 05/08/22 17:23 Hem Pathologist Commnt No 05/08/22 17:23 PT 18.5 Sec. (12.2-14.9) H 05/08/22 17:23 INR 1.37 (0.87-1.13) H 05/08/22 17:23 APTT 42.3 Sec. (24.2-36.6) H 05/08/22 17:23 Sodium 133 mmol/L (137-145) L 05/08/22 17:23 Potassium 3.4 mmol/L (3.6-5.0) L 05/08/22 17:23 Chloride 94.7 mmol/L (98-107) L 05/08/22 17:23 Carbon Dioxide 22 mmol/L (22-30) 05/08/22 17:23 Anion Gap 20 mmol/L 05/08/22 17:23 BUN 48 mg/dL (9-20) H 05/08/22 17:23 Creatinine 1.7 mg/dL (0.8-1.3) H 05/08/22 17:23 Estimated GFR 53 ml/min 05/08/22 17:23 BUN/Creatinine Ratio 28 % 05/08/22 17:23 Glucose 117 mg/dL (75-100) H 05/08/22 17:23 Calcium 8.1 mg/dL (8.4-10.2) L 05/08/22 17:23 Total Bilirubin 20.60 mg/dL (0.1-1.2) H 05/08/22 17:23 AST 21 units/L (5-40) 05/08/22 17:23 ALT < 5 units/L (7-56) L 05/08/22 17:23 Alkaline Phosphatase 110 units/L (35-129) 05/08/22 17:23 Troponin T < 0.010 ng/mL (0.00-0.029) 05/08/22 17:23 NT-Pro-B Natriuret Pep 5393 pg/mL (0-450) H 05/08/22 17:23 Total Protein 5.5 g/dL (6.3-8.2) L 05/08/22 17:23 Albumin 3.4 g/dL (3.9-5) L 05/08/22 17:23 Albumin/Globulin Ratio 1.6 % 05/08/22 17:23 - Imaging and Cardiology Chest x-ray: report reviewed Assessment and Plan VTE prophylaxis?: Chemical Plan of care discussed with patient/family: Yes - Patient Problems (1) Hypotension Status: Acute Plan to address problem: Admit the patient to the ICU overnight. Cardiac diet. Patient is on midodrine 10 mg p.o. 3 times daily. We also started on dopamine and norepinephrine drip. We will consult cardiology. Echocardiogram we also consult critical care evaluation (2) ACS (acute coronary syndrome) Status: Acute Plan to address problem: Patient is on Eliquis 5 mg twice a day. Lipitor 10 mg p.o. nightly. We will put the patient nitroglycerin as needed. Serial cardiac enzymes. Echocardiogram. Cardiology evaluation (3) Acute on chronic HFrEF (heart failure with reduced ejection fraction) Status: Acute Plan to address problem: Fluid restriction. Maintain input output. Coreg 25 mg p.o. twice daily. Echocardiogram. Cardiology evaluation (4) Paroxysmal atrial fibrillation Status: Acute (5) Hyperlipidemia Status: Chronic Qualifiers: Hyperlipidemia type: mixed hyperlipidemia Qualified Code(s): E78.2 - Mixed hyperlipidemia Plan to address problem: Lipitor 10 mg p.o. nightly. We will recheck the lipid panel in the morning (6) Nonischemic cardiomyopathy Status: Chronic Plan to address problem: Eliquis 5 mg twice a day. Lipitor 10 mg p.o. nightly. Coreg 25 mg p.o. twice daily. Serial cardiac enzymes. Echocardiogram. Cardiology evaluation (7) MRSA infection Status: Acute Plan to address problem: Vancomycin 1 g IV every 12 hours. Rocephin 2 g IV daily. Due to the blood culture. Recheck CBC in the morning. Consult infectious disease if needed (8) DVT prophylaxis Status: Acute Plan to address problem: Eliquis 5 mg p.o. twice daily for DVT prophylaxis. Pepcid 20 mg p.o. twice daily for GI prophylaxis. Patient is a full code
[2022-05-08] MEDS ORDERED: BENZOCAINE 20% TOP SPRAY 0.5 ML UNIT DOSE MM SCH (23:00)
[2022-05-08] MEDS ORDERED: VANCOMYCIN/NS 1 GM/250 ML 1 GM/250 ML BAG IV SCH (23:00)
[2022-05-09] MEDS: cefTRIAXone/NS 2 GM/100 ML 2 GM/100 ML BAG IV SCH ×2 (01:35→23:30)
[2022-05-09] MEDS: IPRATROPIUM/ALBUTEROL SULFATE 3 ML AMPUL.NEB IH SCH ×2 (02:00→13:46)
[2022-05-09] MEDS: IBUPROFEN 600 MG TAB PO PRN ×2 (03:03→21:15)
[2022-05-09 05:58] LABS: Hematocrit 25.4 % (35.5-45.6); Hemoglobin 8.5 gm/dl (11.8-15.2); Mean Corpuscular HGB Conc 34 % (32-34); Mean Corpuscular Volume 90 fl (84-94); Platelet Count 248 K/mm3 (140-440); Red Blood Count 2.82 M/mm3 (3.65-5.03)
[2022-05-09 05:59] LABS: Red Cell Distribution Width 23.5 % (13.2-15.2)
[2022-05-09 07:23] LABS: Calcium 8.4 mg/dL (8.4-10.2)
[2022-05-09 07:31] LABS: Basophils # (Auto) 0.1 K/mm3 (0.0-0.1); Eosinophils # (Auto) 0.1 K/mm3 (0.0-0.4); Eosinophils % (Auto) 1.3 % (0.0-4.3); Monocytes # (Auto) 1.2 K/mm3 (0.0-0.8)
[2022-05-09 07:38] LABS: Anisocytosis 2+; Basophils % (Manual) 0 % (0.0-1.8); Eosinophils % (Manual) 0 % (0.0-4.3); Large Platelets Few; Platelet Estimate Consistent w Auto; Target Cells 2+; Total Cells Counted 100
[2022-05-09] MEDS: MIDODRINE 10 MG TAB PO SCH ×3 (08:47→16:17)
--- NOTE | 2022-05-09 09:34 | Consultation ---
History of Present Illness Consult date: 05/09/22 Requesting physician: SHEILA DELGADO Consult reason: chest pain History of present illness: Pt is a 46-year-old AA male with a hx of HFrEF/NICMP (EF 10-15%), valvular heart disease s/p MVR with 33mm Mosaic & tricuspid ring 32mm MC3 in 2017, CHB s/p PPM (Medtronic) in 2017, and AFlutter s/p DENVER ligation who presented with complaints of fatigue, subjective fever/chills, and a cough productive of green sputum. He denies SOB. Cardiology has been consulted for chest pain. Pt reports 2 episodes of sharp pain in the middle of his chest that occurred yesterday while he was coughing. No further chest pain. 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 He was set up for transfer to [facility] but ended up leaving AMA and driving himself to [facility]. He was admitted to [facility] on 04/23 with ADHF (presented with chest pain and dyspnea). He was seen by ID & Structural Cardiology, who deemed no intervention was necessary. He was set up for home IV abx via PICC with plans for repeat PRATIMA after 6 weeks. Per ID, although blood cx had cleared, pt will need prolonged antimicrobials followed by suppressive oral therapy due to increased risk of relapse. He was also started on Coumadin with heparin bridging for possible anteromedial stuck leaflet which may represent thrombosis vs pannus. He left AMA prior to therapeutic INR being achieved. Pt is followed in o ur office by Dr. Jennings. Past History Past Medical History: atrial fib, heart failure, hepatitis, hypertension, liver disease, renal failure, other (valvular heart disease). denies: CAD Past Surgical History: Other (bioprosthetic MV, TV ring, PPM). denies: CABG, PTCA Social history: smoking, alcohol abuse Family history: hypertension Medications and Allergies Allergies Allergy/AdvReac Type Severity Reaction Status Date / Time No Known Allergies Allergy Verified 05/08/22 16:35 Home Medications Medication Instructions Recorded Confirmed Last Taken Type carvediloL [Coreg] 25 mg PO BID 30 Days #60 tablet 04/06/22 04/14/22 04/12/22 Rx Acetaminophen [Acetaminophen TAB] 650 mg PO Q4H PRN tablet 04/14/22 Unknown Rx Apixaban [Eliquis] 5 mg PO BID tablet 04/14/22 Unknown Rx AtorvaSTATin 10 mg PO QHS tablet 04/14/22 Unknown Rx Benzocaine 20% Topical [place] 3 spray MM PREOP packet 04/14/22 Unknown Rx [Hurricaine One 20% Topical [place]] Calcium Carbonate [Tums 500MG CHEW] 500 mg PO Q4H PRN tablet 04/14/22 Unknown Rx Midodrine [Proamatine] 10 mg PO TID@0800,1200,1600 tablet 04/14/22 Unknown Rx Sennosides/Docusate [Senokot S] 1 tab PO QHS tablet 04/14/22 Unknown Rx oxyCODONE /ACETAMINOPHEN [Percocet 1 tab PO Q4H PRN tablet 04/14/22 Unknown Rx 5/325 mg] Active Meds: Active Medications Acetaminophen (Acetaminophen 325 Mg Tab) 650 mg PO Q4H PRN PRN Reason: Pain MILD(1-3)/Fever >100.5/PEREZ Albuterol (Albuterol 2.5 Mg/3 Ml Nebu) 2.5 mg IH Q3HRT PRN PRN Reason: Shortness Of Breath Albuterol/Ipratropium (Ipratropium/Albuterol Sulfate 3 Ml Ampul.Neb) 1 ampul IH Q6HRT [facility] Last Admin: 05/09/22 02:00 Dose: 1 ampul Apixaban (Apixaban 5 Mg Tab) 5 mg PO BID [facility]AH Atorvastatin Calcium (Atorvastatin 10 Mg Tab) 10 mg PO QHS SARAH Calcium Carbonate/Glycine (Calcium Carbonate 500 Mg Tab Chew) 500 mg PO Q4H PRN PRN Reason: Indigestion Carvedilol (Carvedilol 25 Mg Tab) 25 mg PO BID SARAH Famotidine (Famotidine 20 Mg Tab) 20 mg PO BID SARAH NORepinephrine/NS 8 MG-250 ML (Norepinephrine/Ns 8 Mg-250 Ml (Double Conc)) 8 mg in 250 mls @ 3.75 mls/hr IV TITRATE [facility]; Protocol Last Admin: 05/09/22 00:07 Dose: 2 mcg/min, 3.75 mls/hr Ceftriaxone Sodium (Rocephin/Ns 2 Gm/100 Ml) 2 gm in 100 mls @ 200 mls/hr IV Q24H [facility]; Protocol Last Admin: 05/09/22 01:35 Dose: 200 mls/hr Vancomycin HCl 1,250 mg/ (Sodium Chloride) 275 mls @ 166.667 mls/hr IV Q12H [facility] Ibuprofen (Ibuprofen 600 Mg Tab) 600 mg PO Q6H PRN PRN Reason: Non Cardiac Pain or Temp>100.5 Last Admin: 05/09/22 03:03 Dose: 600 mg Midodrine (Midodrine 10 Mg Tab) 10 mg PO TID@0800,1200,1600 [facility] Morphine Sulfate (Morphine 2 Mg/1 Ml Inj) 2 mg IV Q4H PRN PRN Reason: Pain, Moderate (4-6) Morphine Sulfate (Morphine 4 Mg/1 Ml Inj) 4 mg IV Q4H PRN PRN Reason: Pain , Severe (7-10) Ondansetron HCl (Ondansetron 4 Mg/2 Ml Inj) 4 mg IV Q8H PRN PRN Reason: Nausea And Vomiting Sodium Chloride (Sodium Chloride 0.9% 10 Ml Flush Syringe) 10 ml IV BID [facility] Sodium Chloride (Sodium Chloride 0.9% 10 Ml Flush Syringe) 10 ml IV PRN PRN PRN Reason: LINE FLUSH Review of Systems Constitutional: fever, chills, fatigue Ears, nose, mouth and throat: no nasal congestion, no sore throat Cardiovascular: chest pain, no orthopnea, no palpitations, no edema, no syncope, no lightheadedness, no shortness of breath Respiratory: cough with sputum, no shortness of breath Gastrointestinal: no nausea, no vomiting Genitourinary Male: no dysuria Integumentary: no rash, no wounds Neurological: no numbness, no tingling, no seizures, no syncope, no vertigo, no headaches Endocrine: no cold intolerance, no heat intolerance Hematologic/Lymphatic: no easy bruising, no easy bleeding Allergic/Immunologic: no anaphylaxis Physical Examination Vital Signs Temp Pulse Resp BP Pulse Ox 99.2 F 87 14 80/40 99 05/08/22 16:32 05/08/22 16:32 05/08/22 16:32 05/08/22 16:32 05/08/22 16:32 General appearance: no acute distress HEENT: Positive: EOMI, Normocephaly Neck: Negative: JVD/HJR Cardiac: Positive: Reg Rate and Rhythm, S1/S2 Lungs: Positive: Decreased Breath Sounds Neuro: Positive: Grossly Intact Abdomen: Positive: Soft. Negative: Tender Skin: Negative: Rash Musculoskeletal: No Pain Extremities: Present: warm. Absent: edema Results 05/09/22 12:36 05/09/22 04:55 Cardiac Enzymes 05/08/22 Range/Units 17:23 AST 21 (5-40) units/L Coagulation 05/08/22 Range/Units 17:23 PT 18.5 H (12.2-14.9) Sec. INR 1.37 H (0.87-1.13) APTT 42.3 H (24.2-36.6) Sec. CBC 05/08/22 05/09/22 Range/Units 17:23 04:55 WBC 9.4 8.5 (4.5-11.0) K/mm3 RBC 2.82 L 2.82 L (3.65-5.03) M/mm3 Hgb 8.4 L 8.5 L (11.8-15.2) gm/dl Hct 25.4 L 25.4 L (35.5-45.6) % Plt Count 256 248 (140-440) K/mm3 [place] # (Auto) 1.2 H (0.0-0.8) K/mm3 Eos # (Auto) 0.1 (0.0-0.4) K/mm3 Baso # (Auto) 0.1 (0.0-0.1) K/mm3 Comprehensive Metabolic Panel 05/08/22 05/09/22 Range/Units 17:23 04:55 Sodium 133 L 135 L (137-145) mmol/L Potassium 3.4 L 3.9 (3.6-5.0) mmol/L Chloride 94.7 L 96.0 L (98-107) mmol/L Carbon Dioxide 22 21 L (22-30) mmol/L BUN 48 H 53 H (9-20) mg/dL Creatinine 1.7 H 1.7 H (0.8-1.3) mg/dL Glucose 117 H 110 H (75-100) mg/dL Calcium 8.1 L 8.4 (8.4-10.2) mg/dL AST 21 (5-40) units/L ALT < 5 L (7-56) units/L Alkaline Phosphatase 110 (35-129) units/L Total Protein 5.5 L (6.3-8.2) g/dL Albumin 3.4 L (3.9-5) g/dL - Imaging and Cardiology Echo: report reviewed, other EKG: report reviewed, image reviewed - EKG Interpretation EKG: no acute changes EKG interpretations Pacemaker: ventricular pacing w/capt Assessment and Plan Assessment: 46-year-old AA male with a complex medical hx outlined below who was recently admitted for sepsis/MSSA bacteremia and concern for bioprosthetic MV endocarditis. He was set up for transfer to [facility] but ultimately left AMA and drove himself there. A repeat workup, including TTE, PRATIMA, and cardiac CTA, was performed. Per the [facility], anteromedial MV leaflet thickening likely favored thrombus over vegetation. Pt was seen by ID @ [facility], who in light of pt's risk factors, recommended PICC for 6 weeks cefazolin 2g q8h irregardless, after which time a PRATIMA was to be performed for reassessment. Pt was started on Coumadin with heparin bridging for tx of possible thrombus but ultimately requested to leave [facility] AMA prior to therapeutic INR being achieved. He is admitted now with complaints of fatigue, fever/chills, and a cough prod uctive of green sputum. Cardiology has been consulted for chest pain. Pleuritic Chest Pain COVID-19 Infection ?Prosthetic MV Endocarditis ?MV Leaflet Thrombus HFrEF/NICMP (EF 10-15%, declined AICD in 2018 d/t lack of employment/insurance, undergoing outpatient EP workup for [employer]D upgrade) Hypotension KAYLIN/?CKD Anemia PAFlutter (recently switched from Eliquis to Coumadin d/t concern for MV thrombosis & evidence of severe bioprosthetic MS) S/p DENVER Occlusion (11/2016) Severe Bioprosthetic MS H/o Severe MR s/p Bioprosthetic MV (11/2016) Severe TR S/p TV Repair/Ring Annuloplasty (11/2016) H/o CHB s/p PPM (Medtronic) H/o HTN Hep C/Chronic Jaundice H/o EtOH Abuse H/o Tobacco Abuse Medical Non-Compliance CARDIOGRAPHICS Cardiac CTA 04/27/2022: 1. There is a 33 mm Mosaic valve in the mitral position with severe hypoattenuating leaflet thickening of the anteromedial leaflet. This could represent thrombus vs vegetation. 2. There is a 32 mm MC3 tricuspid valve ring present. 3. The left ventricle ventricle is dilated with severely reduced systolic function. Calculated LVEF 16% 4. The right ventricle is severely dilated with severely reduced systolic function. 5. Non-obstructive coronary atherosclerosis. PRATIMA 04/24/2022: 1. Left ventricular ejection fraction is 25%. 2. Severely decreased left ventricular ejection fraction. 3. S/p 33 mm Mosaic MVR. There is mild valvular MR. The anteromedial leaflet is thickened and restricted consistent with leaflet thrombosis. Mean gradient 8-11 mmHg (at HR 90-110 BPM). 4. 32 mm MC3 TV ring with a RV lead. There is severe tricuspid regurgitation, the leaflets were not well visualized. 5. Mild aortic valve insufficiency. 6. Severely enlarged right ventricular cavity size. 7. Severely reduced right ventricular systolic function. 8. The DENVER is ligated. TTE 04/23/2022: 1. Left ventricular ejection fraction is 10-15%. 2. Mild concentric left ventricular hypertrophy. 3. The left ventricular size is moderately dilated. 4. There is moderately increased filling pressure consistent with grade 2 diastolic dysfunction. 5. There is a bioprosthetic valve well seated in mitral position. Mean gradient 13 mm Hg 100 bpm) is elevated consistent with severe functional mitral stenosis. Recommend PRATIMA. 6. Mildly dilated left atrium. 7. Mild to moderate eccentric aortic valve insufficiency. 8. Moderate tricuspid regurgitation. 9. The estimated right ventricular systolic pressure is moderately elevated right ventricular systolic pressure at 54.9 mmHg. 10. Mild to moderate pulmonic valve insufficiency. 11. Mildly dilated right atrium. 12. Mildly enlarged right ventricular cavity size. 13. Moderately to severely reduced right ventricular systolic function. 14. No pericardial effusion seen. 15. Dilated inferior vena cava, with respiratory size variation less than 50%, consistent with elevated right atrial pressure. 16. Mild mitral valve regurgitation. PRATIMA 04/14/2022: EF 10 to 15%, severe global hypokinesis of left ventricle. No thrombus noted in LV. Right ventricle severely hypokinetic. Device lead is present in right ventricle, no vegetations. Device lead is present in right atrium, no vegetations. No left atrial appendage. Normal left pulmonary vein. Saline bubble study did not demonstrate PFO. Mitral valve vegetation is present on bioprosthetic mitral valve. Bioprosthetic mitral valve present. No tricuspid valve vegetation. No pulmonic valve vegetation. No aortic valvular vegetation. TTE 04/01/2022: EF 10 to 15%. Left ventricle is mildly dilated. Severe global hypokinesis of left ventricle. Left ventricular end-diastolic pressure is elevated. Right ventricle is dilated. Right ventricle is hypokinetic. Device lead is present in right ventricle. Left atrium is mildly dilated. Right atrium is dilated. Bioprosthetic mitral valve is present. Mild to moderate tricuspid regurgitation. RVSP 41mmHg. TTE 05/2018: EF 15-20%, LA and RA dilated, RV dilated and hypokinetic, pacemaker electrode in right sided chambers, bioprosthetic valve in mitral position functioning normally, mod AR, no , mod TR, pulm HTN RVSP 65mmHg. Lexiscan MPI Stress Test 10/2018: Negative for ischemia, EF 15%. Plan: Chest pain is pleuritic in nature. Tn neg. ECG reveals no acute ischemic changes. No indication for ischemic eval at this time. Agree with IV dobutamine gtt @ 2.5mcg/kg/min. D/w Nurses Superintendent. GDMT for HF on hold in the setting of hypotension. Recommend IV heparin gtt for anticoagulation. Will ultimately transition to Coumadin prior to discharge. Abx mgmt per Primary teams. ID consult pending. Pt seen in conjunction with Dr. Fuentes, who agrees with the assessment and plan of care. - Patient Problems (1) COVID-19 Current Visit: Yes Status: Acute (2) Thrombosis of mitral valve Current Visit: Yes Status: Acute (3) Infective endocarditis Current Visit: Yes Status: Acute (4) HFrEF (heart failure with reduced ejection fraction) Current Visit: Yes Status: Chronic (5) Nonischemic cardiomyopathy Current Visit: Yes Status: Chronic (6) History of mitral valve replacement with bioprosthetic valve Current Visit: Yes Status: Chronic (7) History of tricuspid valve annuloplasty Current Visit: Yes Status: Chronic (8) Cardiac pacemaker in situ Current Visit: Yes Status: Chronic (9) Paroxysmal atrial flutter Current Visit: Yes Status: Chronic
[2022-05-09] MEDS ORDERED: NON-FORMULARY EACH (Apixaban 5 MG Tablet) PO SCH (10:00)
[2022-05-09] MEDS ORDERED: APIXABAN 5 MG TAB PO SCH (10:00)
[2022-05-09] MEDS ORDERED: carvediloL 25 MG TAB PO SCH (10:00)
[2022-05-09] MEDS: FAMOTIDINE 20 MG TAB PO SCH ×2 (10:25→21:15)
[2022-05-09] MEDS: VANCOMYCIN 1,250 MG in SODIUM CHLORIDE 0.9% 250ML 250 ML IV SCH ×2 (10:46→22:30)
[2022-05-09] MEDS ORDERED: HEPARIN 10,000 UNITS/10 ML VIAL IV PRN (11:00)
[2022-05-09] MEDS: DOBUTamine/D5W 500 MG/250 ML 500 MG/250 ML BAG IV SCH (11:37)
[2022-05-09] MEDS: HEPARIN/ 0.45% NACL DRIP 25,000 UNIT/500 ML BAG IV SCH (11:38)
[2022-05-09] MEDS: DEXAMETHASONE 4 MG TAB PO SCH (11:48)
--- NOTE | 2022-05-09 11:58 | Consultation ---
History of Present Illness - Reason for Consult Consult date: 05/09/22 hypotension Requesting physician: SHEILA DELGADO - History of Present Illness 46 y/o male with known CHF, who was recently admitted here in March with hypotension and found to have endocardidits, has now been readmitted with hypotension and concern for line infection. Patient was awaiting transfer from our hospital to [place], but no beds. Signed out AMA and drove himself to [place]. Was admitted and had entire work up for endocarditis repeated by them. Had picc placed for fci IV abx but then signed out AMA from there. Presented to the ER here yesterday with pain around IV site. The information I just dictated, I did not have last night when I spoke with the ER physician so I suggested changing his abx therapy to vanc and cefepime at the time. Apparently he had MSSA bactermia here and at [facility] I think. Currently on room air in no distress. On levophed at 2. Recently called by lab that patient is COVID positive. Past History Past Medical History: atrial fib, heart failure, hepatitis, hypertension, liver disease, renal failure, other (valvular heart disease). denies: CAD Past Surgical History: Other (bioprosthetic MV, TV ring, PPM). denies: CABG, PTCA Social history: smoking, alcohol abuse Family history: hypertension Medications and Allergies Allergies Allergy/AdvReac Type Severity Reaction Status Date / Time No Known Allergies Allergy Verified 05/08/22 16:35 Home Medications Medication Instructions Recorded Confirmed Last Taken Type carvediloL [Coreg] 25 mg PO BID 30 Days #60 tablet 04/06/22 04/14/22 04/12/22 Rx Acetaminophen [Acetaminophen TAB] 650 mg PO Q4H PRN tablet 04/14/22 Unknown Rx Apixaban [Eliquis] 5 mg PO BID tablet 04/14/22 Unknown Rx AtorvaSTATin 10 mg PO QHS tablet 04/14/22 Unknown Rx Benzocaine 20% Topical [place] 3 spray MM PREOP packet 04/14/22 Unknown Rx [Hurricaine One 20% Topical [place]] Calcium Carbonate [Tums 500MG CHEW] 500 mg PO Q4H PRN tablet 04/14/22 Unknown Rx Midodrine [Proamatine] 10 mg PO TID@0800,1200,1600 tablet 04/14/22 Unknown Rx Sennosides/Docusate [Senokot S] 1 tab PO QHS tablet 04/14/22 Unknown Rx oxyCODONE /ACETAMINOPHEN [Percocet 1 tab PO Q4H PRN tablet 04/14/22 Unknown Rx 5/325 mg] Active Meds: Active Medications Acetaminophen (Acetaminophen 325 Mg Tab) 650 mg PO Q4H PRN PRN Reason: Pain MILD(1-3)/Fever >100.5/PEREZ Albuterol (Albuterol 2.5 Mg/3 Ml Nebu) 2.5 mg IH Q3HRT PRN PRN Reason: Shortness Of Breath Albuterol/Ipratropium (Ipratropium/Albuterol Sulfate 3 Ml Ampul.Neb) 1 ampul IH Q6HRT [facility] Last Admin: 05/09/22 02:00 Dose: 1 ampul Atorvastatin Calcium (Atorvastatin 10 Mg Tab) 10 mg PO QHS SARAH Calcium Carbonate/Glycine (Calcium Carbonate 500 Mg Tab Chew) 500 mg PO Q4H PRN PRN Reason: Indigestion Carvedilol (Carvedilol 25 Mg Tab) 25 mg PO BID [facility] Last Admin: 05/09/22 10:10 Dose: 25 mg Dexamethasone (Dexamethasone 4 Mg Tab) 6 mg PO Q24HR [facility] Last Admin: 05/09/22 11:48 Dose: 6 mg Famotidine (Famotidine 20 Mg Tab) 20 mg PO BID [facility] Last Admin: 05/09/22 10:25 Dose: 20 mg Heparin Sodium (Porcine) (Heparin 10,000 Units/10 Ml Vial) 3,600 unit 40 unit/kg (3600 unit) IV Q6H PRN PRN Reason: Anti-Xa Assay < 0.1 units/ml NORepinephrine/NS 8 MG-250 ML (Norepinephrine/Ns 8 Mg-250 Ml (Double Conc)) 8 mg in 250 mls @ 3.75 mls/hr IV TITRATE [facility]; Protocol Last Admin: 05/09/22 00:07 Dose: 2 mcg/min, 3.75 mls/hr Ceftriaxone Sodium (Rocephin/Ns 2 Gm/100 Ml) 2 gm in 100 mls @ 200 mls/hr IV Q24H [facility]; Protocol Last Admin: 05/09/22 01:35 Dose: 200 mls/hr Vancomycin HCl 1,250 mg/ (Sodium Chloride) 275 mls @ 166.667 mls/hr IV Q12H [facility] Last Admin: 05/09/22 10:46 Dose: 166.667 mls/hr Dobutamine HCl/Dextrose (Dobutrex Drip 500mg/D5w 250ml) 500 mg in 250 mls @ 6.833 mls/hr IV DIRECT [facility]; Protocol Last Admin: 05/09/22 11:37 Dose: 2.5 mcg/kg/min, 6.833 mls/hr Heparin Sodium/Sodium Chloride (Heparin/ 0.45% Nacl-25,000 Unit/500 Ml) 25,000 unit in 500 mls @ 20 mls/hr IV TITRATE [facility]; Protocol Last Admin: 05/09/22 11:38 Dose: 1,000 units/hr, 20 mls/hr Ibuprofen (Ibuprofen 600 Mg Tab) 600 mg PO Q6H PRN PRN Reason: Non Cardiac Pain or Temp>100.5 Last Admin: 05/09/22 03:03 Dose: 600 mg Midodrine (Midodrine 10 Mg Tab) 10 mg PO TID@0800,1200,1600 [facility] Last Admin: 05/09/22 11:48 Dose: 10 mg Morphine Sulfate (Morphine 2 Mg/1 Ml Inj) 2 mg IV Q4H PRN PRN Reason: Pain, Moderate (4-6) Morphine Sulfate (Morphine 4 Mg/1 Ml Inj) 4 mg IV Q4H PRN PRN Reason: Pain , Severe (7-10) Ondansetron HCl (Ondansetron 4 Mg/2 Ml Inj) 4 mg IV Q8H PRN PRN Reason: Nausea And Vomiting Sodium Chloride (Sodium Chloride 0.9% 10 Ml Flush Syringe) 10 ml IV BID [facility] Last Admin: 05/09/22 10:25 Dose: 10 ml Sodium Chloride (Sodium Chloride 0.9% 10 Ml Flush Syringe) 10 ml IV PRN PRN PRN Reason: LINE FLUSH Review of Systems All systems: negative Exam - Physical Exam Narrative exam: Deferred as I had no MAXILLOFACIAL PROSTHODONTIST 95 and at the time Patient was a PUI, confirmed now that he is covid positive. - Constitutional Vitals: Temp Pulse Resp BP Pulse Ox 99.0 F 77 21 87/53 94 05/08/22 21:27 05/09/22 10:10 05/09/22 05:00 05/09/22 10:10 05/09/22 05:00 Results - Labs CBC & Chem 7: 05/09/22 04:55 05/09/22 04:55 Labs: Abnormal lab results 05/08/22 05/08/22 05/08/22 Range/Units 17:23 17:23 17:23 RBC 2.82 L (3.65-5.03) M/mm3 Hgb 8.4 L (11.8-15.2) gm/dl Hct 25.4 L (35.5-45.6) % RDW 23.1 H (13.2-15.2) % [place] % (Auto) (0.0-7.3) % [place] # (Auto) (0.0-0.8) K/mm3 Seg Neutrophils % (40.0-70.0) % Seg Neuts % (Manual) 74.0 H (40.0-70.0) % Lymphocytes % (Manual) 10.0 L (13.4-35.0) % Monocytes % (Manual) 12.0 H (0.0-7.3) % Lymphocytes # (Manual) 0.9 L (1.2-5.4) K/mm3 Monocytes # (Manual) 1.1 H (0.0-0.8) K/mm3 PT 18.5 H (12.2-14.9) Sec. INR 1.37 H (0.87-1.13) APTT 42.3 H (24.2-36.6) Sec. Sodium 133 L (137-145) mmol/L Potassium 3.4 L (3.6-5.0) mmol/L Chloride 94.7 L (98-107) mmol/L Carbon Dioxide (22-30) mmol/L BUN 48 H (9-20) mg/dL Creatinine 1.7 H (0.8-1.3) mg/dL Glucose 117 H (75-100) mg/dL POC Glucose (70-105) mg/dL Calcium 8.1 L (8.4-10.2) mg/dL Total Bilirubin 20.60 H (0.1-1.2) mg/dL ALT < 5 L (7-56) units/L NT-Pro-B Natriuret Pep 5393 H (0-450) pg/mL Total Protein 5.5 L (6.3-8.2) g/dL Albumin 3.4 L (3.9-5) g/dL SARS-CoV-2 (PCR) (Negative) 05/09/22 05/09/22 05/09/22 Range/Units 01:53 04:55 04:55 RBC 2.82 L (3.65-5.03) M/mm3 Hgb 8.5 L (11.8-15.2) gm/dl Hct 25.4 L (35.5-45.6) % RDW 23.5 H (13.2-15.2) % [place] % (Auto) 14.0 H (0.0-7.3) % [place] # (Auto) 1.2 H (0.0-0.8) K/mm3 Seg Neutrophils % 76.4 H (40.0-70.0) % Seg Neuts % (Manual) 73.0 H (40.0-70.0) % Lymphocytes % (Manual) (13.4-35.0) % Monocytes % (Manual) (0.0-7.3) % Lymphocytes # (Manual) (1.2-5.4) K/mm3 Monocytes # (Manual) (0.0-0.8) K/mm3 PT (12.2-14.9) Sec. INR (0.87-1.13) APTT (24.2-36.6) Sec. Sodium 135 L (137-145) mmol/L Potassium (3.6-5.0) mmol/L Chloride 96.0 L (98-107) mmol/L Carbon Dioxide 21 L (22-30) mmol/L BUN 53 H (9-20) mg/dL Creatinine 1.7 H (0.8-1.3) mg/dL Glucose 110 H (75-100) mg/dL POC Glucose 121 H (70-105) mg/dL Calcium (8.4-10.2) mg/dL Total Bilirubin (0.1-1.2) mg/dL ALT (7-56) units/L NT-Pro-B Natriuret Pep (0-450) pg/mL Total Protein (6.3-8.2) g/dL Albumin (3.9-5) g/dL SARS-CoV-2 (PCR) (Negative) 05/09/22 Range/Units 10:40 RBC (3.65-5.03) M/mm3 Hgb (11.8-15.2) gm/dl Hct (35.5-45.6) % RDW (13.2-15.2) % [place] % (Auto) (0.0-7.3) % [place] # (Auto) (0.0-0.8) K/mm3 Seg Neutrophils % (40.0-70.0) % Seg Neuts % (Manual) (40.0-70.0) % Lymphocytes % (Manual) (13.4-35.0) % Monocytes % (Manual) (0.0-7.3) % Lymphocytes # (Manual) (1.2-5.4) K/mm3 Monocytes # (Manual) (0.0-0.8) K/mm3 PT (12.2-14.9) Sec. INR (0.87-1.13) APTT (24.2-36.6) Sec. Sodium (137-145) mmol/L Potassium (3.6-5.0) mmol/L Chloride (98-107) mmol/L Carbon Dioxide (22-30) mmol/L BUN (9-20) mg/dL Creatinine (0.8-1.3) mg/dL Glucose (75-100) mg/dL POC Glucose (70-105) mg/dL Calcium (8.4-10.2) mg/dL Total Bilirubin (0.1-1.2) mg/dL ALT (7-56) units/L NT-Pro-B Natriuret Pep (0-450) pg/mL Total Protein (6.3-8.2) g/dL Albumin (3.9-5) g/dL SARS-CoV-2 (PCR) Positive A (Negative) - Imaging and Cardiology Chest x-ray: image reviewed (cardiomegaly but otherwise clear) Assessment and Plan 46 y/o male admitted with sepsis, thought secondary to endocarditis and possible line infection now COVID positive and hypotensive. 1. Discussed with [facility], will do a trial of dobutamine 2.5 to see if we can wean the levophed and allow for diuresis 2. ID consult 3. Started Decadron 6 daily 4. Abx and await ID recs for changes 5. Currently not hypoxic as he is on room air but would suggest prone during the day as tolerated and sleep prone at night even though he has no oxygen requirement. Guarded prognosis CCT 31 minutes
[2022-05-09 12:40] LABS: Hemoglobin 8.7 gm/dl (11.8-15.2)
[2022-05-09 13:15] LABS: INR 1.37 (0.87-1.13)
[2022-05-09 13:16] LABS: Partial Thromboplastin Time 37.7 Sec. (24.2-36.6)
--- NOTE | 2022-05-09 16:51 | Progress Note ---
<MINHSARTHAK H. - Last Filed: 05/09/22 17:59> Assessment and Plan Assessment and plan: This is a 46-year-old male with HFrEF, s/p ppm, aflutter admitted with Sepsis Neuro: NAD -Reorientation as needed -Maintain sleep-wake cycle -As needed analgesia Cardiac: Hypotension, h/o HFrEF, NICMP (EF10-15%), valvular heart disease s/p MVR< chronic heart block s/p PPM, aflutter -Cardiology consulted, appreciate recommendations -Blood pressure monitoring per protocol -Vasopressor support with lveophed -MAP goal greater than 65 -Dobutamine gtt -Midodrine TID -Echocardiogram pending -pro BNP 5393 Respiratory: NAD -CCM consulted, appreciate recommendations -Supplemental oxygenation as needed -[place] hygenie -SPO2 monitoring GI: h/o chronic HCV -PPI -Cardiac diet : Acute Kidney Injury likely secondary to vasomotor nephropathy -Monitor intake and output -Renally dose medications -Avoid nephrotoxic medications -Urine lites pending -Renal ultrasound pending -Trend BMP ID: Covid 19 infection, r/o endocarditis -Infectious disease consulted, appreciate recommendation -Antibiotic therapy with Rocephin, vancomycin -Contact and Droplet precautions -Trend COVID-19 inflammatory markers every 48 hours -f/u blood culture -Monitor WBC and temperature curve Endo: NAD -Avoid hypoglycemia Heme: NAD -Heparin gtt -Trend CBC -Transfuse hemoglobin less than 7 -SCDs to BLE while in bed The high probability of a clinically significant, sudden or life threatening deterioration of the [multi] system(s) required my full and direct attention, intervention and personal management. The aggregate critical care time was [60] minutes. This time is in addition to time spent performing reported procedures but includes the following: [x] Data Review and interpretation [x] Patient assessment and monitoring of vital signs [x] Documentation [x] Medication orders and management Disposition Plan: icu Total Time Spent with Patient (Minutes): 60 History Interval history: This is a 46-year-old male with HFrEF/NICMP (EF 10-15%), chronic HCV infection, valvular heart disease s/p MVR, Chronic heart block s/p PPM (2017), AFlutter s/p ligation who presented to the emergency department on 05/08 with complaints of chest pain. 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 Patient was admitted to the hospitalist service with consults to [facility] and cardiology with acute on chronic heart failure and MRSA infection. Hospital course: 05/09: Patient tested positive for COVID-19, ID consulted, started on steroids. Remains on levophed. Started on dobutamine and midodrine. Hospitalist Physical - Constitutional Vitals: Temp Pulse Resp BP Pulse Ox 99.0 F 74 15 96/61 94 05/08/22 21:27 05/09/22 16:00 05/09/22 16:00 05/09/22 16:00 05/09/22 16:00 General appearance: Present: no acute distress - EENT Eyes: Present: PERRL, EOM intact ENT: clear oral mucosa, dentition normal - Neck Neck: Present: normal ROM - Respiratory Respiratory effort: normal Respiratory: bilateral: diminished - Cardiovascular Rhythm: regular Heart Sounds: Present: S1 & S2. Absent: systolic murmur, diastolic murmur - Extremities Extremities: no ischemia, pulses intact, pulses symmetrical, normal temperature, normal color Peripheral Pulses: within normal limits - Abdominal General gastrointestinal: soft, non-tender, non-distended, normal bowel sounds - Integumentary Integumentary: Present: warm - Psychiatric Psychiatric: appropriate mood/affect - Neurologic Neurologic: CNII-XII intact, moves all extremities - Allied Health Allied health notes reviewed: nursing, RT HEART Score - HEART Score EKG: Non-specific Age: < 45 Risk factors: 1-2 risk factors Troponin: Troponin T < 0.010 ng/mL (0.00-0.029) 05/08/22 17:23 Troponin: < normal limit Results - Labs CBC & Chem 7: 05/09/22 12:36 05/09/22 04:55 Labs: Laboratory Last Values WBC 8.5 K/mm3 (4.5-11.0) 05/09/22 04:55 RBC 2.82 M/mm3 (3.65-5.03) L 05/09/22 04:55 Hgb 8.7 gm/dl (11.8-15.2) L 05/09/22 12:36 Hct 25.0 % (35.5-45.6) L 05/09/22 12:36 MCV 90 fl (84-94) 05/09/22 04:55 MCH 30 pg (28-32) 05/09/22 04:55 MCHC 34 % (32-34) 05/09/22 04:55 RDW 23.5 % (13.2-15.2) H 05/09/22 04:55 Plt Count 224 K/mm3 (140-440) 05/09/22 12:36 Lane % (Auto) 14.0 % (0.0-7.3) H 05/09/22 04:55 Eos % (Auto) 1.3 % (0.0-4.3) 05/09/22 04:55 Lane # (Auto) 1.2 K/mm3 (0.0-0.8) H 05/09/22 04:55 Eos # (Auto) 0.1 K/mm3 (0.0-0.4) 05/09/22 04:55 Baso # (Auto) 0.1 K/mm3 (0.0-0.1) 05/09/22 04:55 Add Manual Diff Complete 05/09/22 04:55 Total Counted 100 05/09/22 04:55 Seg Neutrophils % 76.4 % (40.0-70.0) H 05/09/22 04:55 Seg Neuts % (Manual) 73.0 % (40.0-70.0) H 05/09/22 04:55 Band Neutrophils % 0 % 05/09/22 04:55 Lymphocytes % (Manual) 23.0 % (13.4-35.0) 05/09/22 04:55 Reactive Lymphs % (Man) 0 % 05/09/22 04:55 Monocytes % (Manual) 4.0 % (0.0-7.3) 05/09/22 04:55 Eosinophils % (Manual) 0 % (0.0-4.3) 05/09/22 04:55 Basophils % (Manual) 0 % (0.0-1.8) 05/09/22 04:55 Metamyelocytes % 0 % 05/09/22 04:55 Myelocytes % 0 % 05/09/22 04:55 Promyelocytes % 0 % 05/09/22 04:55 Blast Cells % 0 % 05/09/22 04:55 Nucleated RBC % Not Reportable 05/09/22 04:55 Seg Neutrophils # 6.4 K/mm3 (1.8-7.7) 05/09/22 04:55 Seg Neutrophils # Man 6.2 K/mm3 (1.8-7.7) 05/09/22 04:55 Band Neutrophils # 0.0 K/mm3 05/09/22 04:55 Lymphocytes # (Manual) 2.0 K/mm3 (1.2-5.4) 05/09/22 04:55 Abs React Lymphs (Man) 0.0 K/mm3 05/09/22 04:55 Monocytes # (Manual) 0.3 K/mm3 (0.0-0.8) 05/09/22 04:55 Eosinophils # (Manual) 0.0 K/mm3 (0.0-0.4) 05/09/22 04:55 Basophils # (Manual) 0.0 K/mm3 (0.0-0.1) 05/09/22 04:55 Metamyelocytes # 0.0 K/mm3 05/09/22 04:55 Myelocytes # 0.0 K/mm3 05/09/22 04:55 Promyelocytes # 0.0 K/mm3 05/09/22 04:55 Blast Cells # 0.0 K/mm3 05/09/22 04:55 WBC Morphology Not Reportable 05/09/22 04:55 Hypersegmented Neuts Not Reportable 05/09/22 04:55 Hyposegmented Neuts Not Reportable 05/09/22 04:55 Hypogranular Neuts Not Reportable 05/09/22 04:55 Smudge Cells Not Reportable 05/09/22 04:55 Toxic Granulation Not Reportable 05/09/22 04:55 Toxic Vacuolation Not Reportable 05/09/22 04:55 Dohle Bodies Not Reportable 05/09/22 04:55 Pelger-Huet Anomaly Not Reportable 05/09/22 04:55 Gray Rods Not Reportable 05/09/22 04:55 Platelet Estimate Consistent w auto 05/09/22 04:55 Clumped Platelets Not Reportable 05/09/22 04:55 Plt Clumps, EDTA Not Reportable 05/09/22 04:55 Large Platelets Few 05/09/22 04:55 Giant Platelets Not Reportable 05/09/22 04:55 Platelet Satelliting Not Reportable 05/09/22 04:55 Plt Morphology Comment Not Reportable 05/09/22 04:55 RBC Morphology Not Reportable 05/09/22 04:55 Dimorphic RBCs Not Reportable 05/09/22 04:55 Polychromasia Few 05/09/22 04:55 Hypochromasia Not Reportable 05/09/22 04:55 Poikilocytosis Not Reportable 05/09/22 04:55 Anisocytosis 2+ 05/09/22 04:55 Microcytosis Not Reportable 05/09/22 04:55 Macrocytosis Not Reportable 05/09/22 04:55 Spherocytes Not Reportable 05/09/22 04:55 Pappenheimer Bodies Not Reportable 05/09/22 04:55 Sickle Cells Not Reportable 05/09/22 04:55 Target Cells 2+ 05/09/22 04:55 Tear Drop Cells Not Reportable 05/09/22 04:55 Ovalocytes Not Reportable 05/09/22 04:55 Helmet Cells Not Reportable 05/09/22 04:55 [place] Bodies Not Reportable 05/09/22 04:55 [place] Rings Not Reportable 05/09/22 04:55 Julio Cells Not Reportable 05/09/22 04:55 Bite Cells Not Reportable 05/09/22 04:55 Crenated Cell Not Reportable 05/09/22 04:55 Elliptocytes Not Reportable 05/09/22 04:55 Acanthocytes (Spur) Not Reportable 05/09/22 04:55 Rouleaux Not Reportable 05/09/22 04:55 Hemoglobin C Crystals Not Reportable 05/09/22 04:55 Schistocytes Not Reportable 05/09/22 04:55 Malaria parasites Not Reportable 05/09/22 04:55 Shubham Bodies Not Reportable 05/09/22 04:55 Hem Pathologist Commnt No 05/09/22 04:55 PT 18.5 Sec. (12.2-14.9) H 05/09/22 12:36 INR 1.37 (0.87-1.13) H 05/09/22 12:36 APTT 37.7 Sec. (24.2-36.6) H 05/09/22 12:36 Sodium 135 mmol/L (137-145) L 05/09/22 04:55 Potassium 3.9 mmol/L (3.6-5.0) 05/09/22 04:55 Chloride 96.0 mmol/L (98-107) L 05/09/22 04:55 Carbon Dioxide 21 mmol/L (22-30) L 05/09/22 04:55 Anion Gap 22 mmol/L 05/09/22 04:55 BUN 53 mg/dL (9-20) H 05/09/22 04:55 Creatinine 1.7 mg/dL (0.8-1.3) H 05/09/22 04:55 Estimated GFR 53 ml/min 05/09/22 04:55 BUN/Creatinine Ratio 31 % 05/09/22 04:55 Glucose 110 mg/dL (75-100) H 05/09/22 04:55 POC Glucose 121 mg/dL (70-105) H 05/09/22 01:53 Calcium 8.4 mg/dL (8.4-10.2) 05/09/22 04:55 Total Bilirubin 20.60 mg/dL (0.1-1.2) H 05/08/22 17:23 AST 21 units/L (5-40) 05/08/22 17:23 ALT < 5 units/L (7-56) L 05/08/22 17:23 Alkaline Phosphatase 110 units/L (35-129) 05/08/22 17:23 Troponin T < 0.010 ng/mL (0.00-0.029) 05/08/22 17:23 NT-Pro-B Natriuret Pep 5393 pg/mL (0-450) H 05/08/22 17:23 Total Protein 5.5 g/dL (6.3-8.2) L 05/08/22 17:23 Albumin 3.4 g/dL (3.9-5) L 05/08/22 17:23 Albumin/Globulin Ratio 1.6 % 05/08/22 17:23 SARS-CoV-2 (PCR) Positive (Negative) A 05/09/22 10:40 Microbiology: Microbiology 05/08/22 22:25 Peripheral/Venous Blood Culture - Preliminary Culture in Progress 05/08/22 22:25 Peripheral/Venous Blood Culture - Preliminary Culture in Progress Carvajal/IV: Voiding Method Urinal Active Medications - Current Medications Current Medications: Generic Name Dose Route Start Last Admin Trade Name Freq PRN Reason Stop Dose Admin Acetaminophen 650 mg 05/08/22 22:09 Acetaminophen 325 Mg Tab PO Q4H PRN Pain MILD(1-3)/Fever >100.5/PEREZ Atorvastatin Calcium 10 mg 05/09/22 22:00 Atorvastatin 10 Mg Tab PO QHS SARAH Calcium Carbonate/Glycine 500 mg 05/08/22 22:13 Calcium Carbonate 500 Mg Tab Chew PO Q4H PRN Indigestion Dexamethasone 6 mg 05/09/22 12:00 05/09/22 11:48 Dexamethasone 4 Mg Tab PO 6 mg Q24HR SARAH Administration Famotidine 20 mg 05/09/22 10:00 05/09/22 10:25 Famotidine 20 Mg Tab PO 20 mg BID SARAH Administration Heparin Sodium (Porcine) 3,600 unit 05/09/22 11:00 Heparin 10,000 Units/10 Ml Vial 40 unit/kg (3600 unit) IV Q6H PRN Anti-Xa Assay < 0.1 units/ml NORepinephrine/NS 8 MG-250 ML 8 mg in 250 mls @ 3.75 mls/hr 05/08/22 22:00 05/09/22 00:07 Norepinephrine/Ns 8 Mg-250 Ml (Double Conc) IV 2 mcg/min TITRATE SARAH 3.75 mls/hr Administration Protocol 2 MCG/MIN Ceftriaxone Sodium 2 gm in 100 mls @ 200 mls/hr 05/08/22 23:00 05/09/22 01:35 Rocephin/Ns 2 Gm/100 Ml IV 200 mls/hr Q24H SARAH Administration Protocol Vancomycin HCl 1,250 mg/ 275 mls @ 166.667 mls/hr 05/09/22 10:00 05/09/22 10:46 Sodium Chloride IV 166.667 mls/hr Q12H SARAH Administration Dobutamine HCl/Dextrose 500 mg in 250 mls @ 6.833 mls/hr 05/09/22 11:00 05/09/22 11:37 Dobutrex Drip 500mg/D5w 250ml IV 2.5 mcg/kg/min DIRECT SARAH 6.833 mls/hr Administration Protocol 2.5 MCG/KG/MIN Heparin Sodium/Sodium Chloride 25,000 unit in 500 mls @ 20 mls/hr 05/09/22 11:00 05/09/22 11:38 Heparin/ 0.45% Nacl-25,000 Unit/500 Ml IV 1,000 units/hr TITRATE SARAH 20 mls/hr Administration Protocol 1,000 UNITS/HR Ibuprofen 600 mg 05/09/22 02:34 05/09/22 03:03 Ibuprofen 600 Mg Tab PO 600 mg Q6H PRN Administration Non Cardiac Pain or Temp>100.5 Midodrine 10 mg 05/09/22 08:00 05/09/22 11:48 Midodrine 10 Mg Tab PO 10 mg TID@0800,1200,1600 SARAH Administration Morphine Sulfate 2 mg 05/08/22 22:09 Morphine 2 Mg/1 Ml Inj IV Q4H PRN Pain, Moderate (4-6) Morphine Sulfate 4 mg 05/08/22 22:09 Morphine 4 Mg/1 Ml Inj IV Q4H PRN Pain , Severe (7-10) Ondansetron HCl 4 mg 05/08/22 22:09 Ondansetron 4 Mg/2 Ml Inj IV Q8H PRN Nausea And Vomiting Sodium Chloride 10 ml 05/09/22 10:00 05/09/22 10:25 Sodium Chloride 0.9% 10 Ml Flush Syringe IV 10 ml BID SARAH Administration Sodium Chloride 10 ml 05/08/22 22:09 Sodium Chloride 0.9% 10 Ml Flush Syringe IV PRN PRN LINE FLUSH <NNAMDI SHI - Last Filed: 05/18/22 11:34> History Interval history: I saw and evaluated the patient. I agree with the findings and the plan of care as documented in the Nurse Practitioner's~note, with the following corrections and additions. Hospitalist Physical - Constitutional Vitals: Temp Pulse Resp BP Pulse Ox 97.5 F L 71 16 101/63 96 05/13/22 00:04 05/13/22 12:22 05/13/22 08:41 05/13/22 12:22 05/13/22 08:41 HEART Score - HEART Score Troponin: Troponin T < 0.010 ng/mL (0.00-0.029) 05/08/22 17:23 Results - Labs CBC & Chem 7: 05/13/22 06:40 05/13/22 06:40 Labs: Laboratory Last Values WBC 11.6 K/mm3 (4.5-11.0) H 05/12/22 06:04 RBC 2.77 M/mm3 (3.65-5.03) L 05/12/22 06:04 Hgb 8.7 gm/dl (11.8-15.2) L 05/13/22 06:40 Hct 26.8 % (35.5-45.6) L 05/13/22 06:40 MCV 90 fl (84-94) 05/12/22 06:04 MCH 31 pg (28-32) 05/12/22 06:04 MCHC 34 % (32-34) 05/12/22 06:04 RDW 23.9 % (13.2-15.2) H 05/12/22 06:04 Plt Count 279 K/mm3 (140-440) 05/13/22 06:40 Lane % (Auto) 14.0 % (0.0-7.3) H 05/09/22 04:55 Eos % (Auto) 1.3 % (0.0-4.3) 05/09/22 04:55 Lane # (Auto) 1.2 K/mm3 (0.0-0.8) H 05/09/22 04:55 Eos # (Auto) 0.1 K/mm3 (0.0-0.4) 05/09/22 04:55 Baso # (Auto) 0.1 K/mm3 (0.0-0.1) 05/09/22 04:55 Add Manual Diff Complete 05/12/22 06:04 Total Counted 100 05/12/22 06:04 Seg Neutrophils % 76.4 % (40.0-70.0) H 05/09/22 04:55 Seg Neuts % (Manual) 83.0 % (40.0-70.0) H 05/12/22 06:04 Band Neutrophils % 1.0 % 05/12/22 06:04 Lymphocytes % (Manual) 6.0 % (13.4-35.0) L 05/12/22 06:04 Reactive Lymphs % (Man) 0 % 05/12/22 06:04 Monocytes % (Manual) 8.0 % (0.0-7.3) H 05/12/22 06:04 Eosinophils % (Manual) 0 % (0.0-4.3) 05/12/22 06:04 Basophils % (Manual) 0 % (0.0-1.8) 05/12/22 06:04 Metamyelocytes % 2.0 % 05/12/22 06:04 Myelocytes % 0 % 05/12/22 06:04 Promyelocytes % 0 % 05/12/22 06:04 Blast Cells % 0 % 05/12/22 06:04 Nucleated RBC % Not Reportable 05/12/22 06:04 Seg Neutrophils # 6.4 K/mm3 (1.8-7.7) 05/09/22 04:55 Seg Neutrophils # Man 9.6 K/mm3 (1.8-7.7) H 05/12/22 06:04 Band Neutrophils # 0.1 K/mm3 05/12/22 06:04 Lymphocytes # (Manual) 0.7 K/mm3 (1.2-5.4) L 05/12/22 06:04 Abs React Lymphs (Man) 0.0 K/mm3 05/12/22 06:04 Monocytes # (Manual) 0.9 K/mm3 (0.0-0.8) H 05/12/22 06:04 Eosinophils # (Manual) 0.0 K/mm3 (0.0-0.4) 05/12/22 06:04 Basophils # (Manual) 0.0 K/mm3 (0.0-0.1) 05/12/22 06:04 Metamyelocytes # 0.2 K/mm3 05/12/22 06:04 Myelocytes # 0.0 K/mm3 05/12/22 06:04 Promyelocytes # 0.0 K/mm3 05/12/22 06:04 Blast Cells # 0.0 K/mm3 05/12/22 06:04 WBC Morphology Not Reportable 05/12/22 06:04 Hypersegmented Neuts Not Reportable 05/12/22 06:04 Hyposegmented Neuts Not Reportable 05/12/22 06:04 Hypogranular Neuts Not Reportable 05/12/22 06:04 Smudge Cells Not Reportable 05/12/22 06:04 Toxic Granulation Not Reportable 05/12/22 06:04 Toxic Vacuolation Not Reportable 05/12/22 06:04 Dohle Bodies Not Reportable 05/12/22 06:04 Pelger-Huet Anomaly Not Reportable 05/12/22 06:04 Gray Rods Not Reportable 05/12/22 06:04 Platelet Estimate Consistent w auto 05/12/22 06:04 Clumped Platelets Not Reportable 05/12/22 06:04 Plt Clumps, EDTA Not Reportable 05/12/22 06:04 Large Platelets Not Reportable 05/12/22 06:04 Giant Platelets Not Reportable 05/12/22 06:04 Platelet Satelliting Not Reportable 05/12/22 06:04 Plt Morphology Comment Not Reportable 05/12/22 06:04 RBC Morphology Not Reportable 05/12/22 06:04 Dimorphic RBCs Not Reportable 05/12/22 06:04 Polychromasia Not Reportable 05/12/22 06:04 Hypochromasia Not Reportable 05/12/22 06:04 Poikilocytosis 1+ 05/12/22 06:04 Anisocytosis 2+ 05/12/22 06:04 Microcytosis Not Reportable 05/12/22 06:04 Macrocytosis Not Reportable 05/12/22 06:04 Spherocytes Not Reportable 05/12/22 06:04 Pappenheimer Bodies Not Reportable 05/12/22 06:04 Sickle Cells Not Reportable 05/12/22 06:04 Target Cells 1+ 05/12/22 06:04 Tear Drop Cells Not Reportable 05/12/22 06:04 Ovalocytes Not Reportable 05/12/22 06:04 Helmet Cells Not Reportable 05/12/22 06:04 [place] Bodies Not Reportable 05/12/22 06:04 [place] Rings Not Reportable 05/12/22 06:04 Julio Cells Not Reportable 05/12/22 06:04 Bite Cells Not Reportable 05/12/22 06:04 Crenated Cell Not Reportable 05/12/22 06:04 Elliptocytes Not Reportable 05/12/22 06:04 Acanthocytes (Spur) Not Reportable 05/12/22 06:04 Rouleaux Not Reportable 05/12/22 06:04 Hemoglobin C Crystals Not Reportable 05/12/22 06:04 Schistocytes Not Reportable 05/12/22 06:04 Malaria parasites Not Reportable 05/12/22 06:04 Shubham Bodies Not Reportable 05/12/22 06:04 Hem Pathologist Commnt No 05/12/22 06:04 PT 17.0 Sec. (12.2-14.9) H 05/13/22 06:40 INR 1.24 (0.87-1.13) H 05/13/22 06:40 APTT 37.7 Sec. (24.2-36.6) H 05/09/22 12:36 D-Dimer 252.8 ng/mlDDU (0-234) H 05/13/22 06:40 Heparin Anti-Xa Level 0.10 U.I./ml (0.3-0.7) L 05/11/22 Unknown Sodium 137 mmol/L (137-145) 05/13/22 06:40 Potassium 3.4 mmol/L (3.6-5.0) L 05/13/22 06:40 Chloride 100.5 mmol/L (98-107) 05/13/22 06:40 Carbon Dioxide 25 mmol/L (22-30) 05/13/22 06:40 Anion Gap 15 mmol/L 05/13/22 06:40 BUN 30 mg/dL (9-20) H 05/13/22 06:40 Creatinine 1.3 mg/dL (0.8-1.3) 05/13/22 06:40 Estimated GFR > 60 ml/min 05/13/22 06:40 BUN/Creatinine Ratio 23 % 05/13/22 06:40 Glucose 90 mg/dL (75-100) 05/13/22 06:40 POC Glucose 104 mg/dL (70-105) 05/10/22 11:54 Calcium 8.8 mg/dL (8.4-10.2) 05/13/22 06:40 Ferritin 666.2 ng/mL (30.0-300.0) H 05/13/22 06:40 Total Bilirubin 15.60 mg/dL (0.1-1.2) H 05/13/22 06:40 AST 16 units/L (5-40) 05/13/22 06:40 ALT < 5 units/L (7-56) L 05/13/22 06:40 Alkaline Phosphatase 99 units/L (35-129) 05/13/22 06:40 Lactate Dehydrogenase 209 units/L (91-180) H 05/13/22 06:40 Troponin T < 0.010 ng/mL (0.00-0.029) 05/08/22 17:23 C-Reactive Protein 2.00 mg/dL (0.00-1.30) H 05/13/22 06:40 NT-Pro-B Natriuret Pep 5393 pg/mL (0-450) H 05/08/22 17:23 Total Protein 5.8 g/dL (6.3-8.2) L 05/13/22 06:40 Albumin 3.4 g/dL (3.9-5) L 05/13/22 06:40 Albumin/Globulin Ratio 1.4 % 05/13/22 06:40 Procalcitonin 0.55 ng/mL (<0.15) 05/09/22 17:39 Urine Creatinine 66.2 mg/dL (0.1-20.0) H 05/10/22 Unknown Urine Sodium 35 mmol/L 05/10/22 Unknown Urine Urea Nitrogen 671 05/10/22 Unknown SARS-CoV-2 (PCR) Positive (Negative) A 05/09/22 10:40 Carvajal/IV: Voiding Method Toilet
[2022-05-10 01:14] LABS: Creatinine,Urine 66.2 mg/dL (0.1-20.0)
[2022-05-10] MEDS: MIDODRINE 10 MG TAB PO SCH ×4 (08:37→15:25)
--- NOTE | 2022-05-10 09:01 | Progress Note ---
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 He was set up for transfer to [facility] but ultimately left AMA and drove himself there (admitted to [facility] on 04/23 for ADHF). A repeat workup, including TTE, PRATIMA, and cardiac CTA, was performed. Per the [facility], anteromedial MV leaflet thickening likely favored thrombus over vegetation. Pt was seen by ID @ [facility], who in light of pt's risk factors, recommended PICC for 6 weeks cefazolin 2g q8h irregardless, after which time a PRATIMA was to be performed for reassessment. Pt was started on Coumadin with heparin bridging for tx of possible thrombus but ultimately requested to leave [facility] AMA prior to therapeutic INR being achieved. He is admitted now with complaints of fatigue, fever/chills, and a cough productive of green sputum. He has been found to be COVID-positive. Cardiology has been consulted for chest pain. Pleuritic Chest Pain COVID-19 Infection ?Prosthetic MV Endocarditis ?MV Leaflet Thrombus HFrEF/NICMP (EF 10-15%, declined AICD in 2018 d/t lack of employment/insurance, undergoing outpatient EP workup for [employer] upgrade) Hypotension KAYLIN/?CKD Anemia PAFlutter (recently switched from Eliquis to Coumadin d/t concern for MV thrombosis & evidence of severe bioprosthetic MS) S/p DENVER Occlusion (11/2016) Severe Bioprosthetic MS H/o Severe MR s/p Bioprosthetic MV (11/2016) Severe TR S/p TV Repair/Ring Annuloplasty (11/2016) H/o CHB s/p PPM ([employer]) H/o HTN Hep C/Chronic Jaundice H/o EtOH Abuse H/o Tobacco Abuse Medical Non-Compliance CARDIOGRAPHICS Cardiac CTA 04/27/2022: 1. There is a 33 mm Mosaic valve in the mitral position with severe hypoattenuating leaflet thickening of the anteromedial leaflet. This could represent thrombus vs vegetation. 2. There is a 32 mm MC3 tricuspid valve ring present. 3. The left ventricle ventricle is dilated with severely reduced systolic function. Calculated LVEF 16% 4. The right ventricle is severely dilated with severely reduced systolic function. 5. Non-obstructive coronary atherosclerosis. PRATIMA 04/24/2022: 1. Left ventricular ejection fraction is 25%. 2. Severely decreased left ventricular ejection fraction. 3. S/p 33 mm Mosaic MVR. There is mild valvular MR. The anteromedial leaflet is thickened and restricted consistent with leaflet thrombosis. Mean gradient 8-11 mmHg (at HR 90-110 BPM). 4. 32 mm MC3 TV ring with a RV lead. There is severe tricuspid regurgitation, the leaflets were not well visualized. 5. Mild aortic valve insufficiency. 6. Severely enlarged right ventricular cavity size. 7. Severely reduced right ventricular systolic function. 8. The DENVER is ligated. TTE 04/23/2022: 1. Left ventricular ejection fraction is 10-15%. 2. Mild concentric left ventricular hypertrophy. 3. The left ventricular size is moderately dilated. 4. There is moderately increased filling pressure consistent with grade 2 diastolic dysfunction. 5. There is a bioprosthetic valve well seated in mitral position. Mean gradient 13 mm Hg 100 bpm) is elevated consistent with severe functional mitral stenosis. Recommend PRATIMA. 6. Mildly dilated left atrium. 7. Mild to moderate eccentric aortic valve insufficiency. 8. Moderate tricuspid regurgitation. 9. The estimated right ventricular systolic pressure is moderately elevated right ventricular systolic pressure at 54.9 mmHg. 10. Mild to moderate pulmonic valve insufficiency. 11. Mildly dilated right atrium. 12. Mildly enlarged right ventricular cavity size. 13. Moderately to severely reduced right ventricular systolic function. 14. No pericardial effusion seen. 15. Dilated inferior vena cava, with respiratory size variation less than 50%, consistent with elevated right atrial pressure. 16. Mild mitral valve regurgitation. PRATIMA 04/14/2022: EF 10 to 15%, severe global hypokinesis of left ventricle. No thrombus noted in LV. Right ventricle severely hypokinetic. Device lead is present in right ventricle, no vegetations. Device lead is present in right atrium, no vegetations. No left atrial appendage. Normal left pulmonary vein. Saline bubble study did not demonstrate PFO. Mitral valve vegetation is present on bioprosthetic mitral valve. Bioprosthetic mitral valve present. No tricuspid valve vegetation. No pulmonic valve vegetation. No aortic valvular vegetation. TTE 04/01/2022: EF 10 to 15%. Left ventricle is mildly dilated. Severe global hypokinesis of left ventricle. Left ventricular end-diastolic pressure is elevated. Right ventricle is dilated. Right ventricle is hypokinetic. Device lead is present in right ventricle. Left atrium is mildly dilated. Right atrium is dilated. Bioprosthetic mitral valve is present. Mild to moderate tricuspid regurgitation. RVSP 41mmHg. TTE 05/2018: EF 15-20%, LA and RA dilated, RV dilated and hypokinetic, pacemaker electrode in right sided chambers, bioprosthetic valve in mitral position functioning normally, mod AR, no , mod TR, pulm HTN RVSP 65mmHg. Lexiscan MPI Stress Test 10/2018: Negative for ischemia, EF 15%. Plan: Continue IV dobutamine gtt @ 2.5mcg/kg/min. If BP remains stable on Midodrine today, may trial off inotrope therapy with resumption of maintenance diuretic. Other GDMT for HF remains on hold at this time d/t hypoTSN. Continue IV heparin gtt. Will ultimately transition to Coumadin prior to discharge. Abx mgmt per Primary team/ID. Pt seen in conjunction with Dr. Fuentes, who agrees with the assessment and plan of care. - Patient Problems (1) COVID-19 Current Visit: Yes Status: Acute (2) Thrombosis of mitral valve Current Visit: Yes Status: Acute (3) Infective endocarditis Current Visit: Yes Status: Acute (4) HFrEF (heart failure with reduced ejection fraction) Current Visit: Yes Status: Chronic (5) Nonischemic cardiomyopathy Current Visit: Yes Status: Chronic (6) History of mitral valve replacement with bioprosthetic valve Current Visit: Yes Status: Chronic (7) History of tricuspid valve annuloplasty Current Visit: Yes Status: Chronic (8) Cardiac pacemaker in situ Current Visit: Yes Status: Chronic (9) Paroxysmal atrial flutter Current Visit: Yes Status: Chronic Subjective Date of service: 05/10/22 Principal diagnosis: COVID-19, Bioprosthetic MV IE vs Thrombus, HFrEF Interval history: No acute events overnight. Off Levo gtt and transitioned to PO Midodrine. VS stable. 2675mL UOP documented / 24 hrs. Objective Vital Signs Temp Pulse Pulse BP Pulse Ox 05/10/22 07:34 98.1 F 05/10/22 06:00 70 112/72 99 05/10/22 05:30 77 112/72 100 05/10/22 05:00 68 112/72 97 05/10/22 04:30 72 100/59 95 05/10/22 04:00 97.8 F 71 71 100/59 98 05/10/22 03:30 69 100/52 93 05/10/22 03:00 71 100/52 93 05/10/22 02:30 70 104/54 98 05/10/22 02:00 71 104/54 98 05/10/22 01:30 70 116/67 98 05/10/22 01:00 72 116/67 97 05/10/22 00:46 71 105/62 98 05/10/22 00:30 75 105/62 99 05/10/22 00:16 75 105/62 98 05/10/22 00:00 98.4 F 72 72 105/62 96 05/09/22 23:46 72 111/61 98 05/09/22 23:30 72 111/61 100 05/09/22 23:16 75 111/61 98 05/09/22 23:04 76 111/61 96 05/09/22 23:00 75 111/61 96 05/09/22 22:46 74 101/62 96 05/09/22 22:30 75 101/62 90 05/09/22 22:16 75 99/51 94 05/09/22 22:00 77 99/51 96 05/09/22 21:46 75 101/62 97 05/09/22 21:30 73 101/62 98 05/09/22 21:16 101/62 96 05/09/22 21:15 05/09/22 21:00 101/62 97 05/09/22 20:46 77 104/68 98 05/09/22 20:30 76 104/68 98 05/09/22 20:18 100 05/09/22 20:16 74 98 05/09/22 20:00 98.9 F 76 76 100/63 96 05/09/22 19:45 78 100/63 99 05/09/22 19:31 75 100/63 95 05/09/22 19:15 74 100/63 95 05/09/22 19:00 74 100/63 94 05/09/22 18:45 75 92/60 96 05/09/22 18:31 74 92/60 96 05/09/22 18:21 73 92/60 96 05/09/22 18:11 75 92/60 96 05/09/22 18:00 74 92/60 94 05/09/22 17:51 74 104/57 96 05/09/22 17:41 74 104/57 96 05/09/22 17:31 74 104/57 96 05/09/22 17:21 74 104/57 94 05/09/22 17:11 74 104/57 93 05/09/22 17:00 76 104/57 95 05/09/22 16:51 74 101/62 94 05/09/22 16:41 74 101/62 94 05/09/22 16:31 76 101/62 95 05/09/22 16:21 75 101/62 94 05/09/22 16:11 74 101/62 95 05/09/22 16:00 74 74 96/61 94 05/09/22 15:51 75 101/62 96 05/09/22 15:40 79 101/62 88 05/09/22 15:31 75 101/62 97 05/09/22 15:21 75 101/62 94 05/09/22 15:11 76 101/62 94 05/09/22 15:00 77 101/62 94 05/09/22 14:51 77 98/60 93 05/09/22 14:41 76 98/60 97 05/09/22 14:31 76 98/60 98 05/09/22 14:21 77 98/60 95 05/09/22 14:11 75 98/60 94 05/09/22 14:00 75 98/60 99 05/09/22 13:51 79 85/43 95 05/09/22 13:41 79 85/43 91 05/09/22 13:31 78 85/43 96 05/09/22 13:21 82 85/43 95 05/09/22 13:11 80 85/43 97 05/09/22 13:00 78 85/43 96 05/09/22 12:51 79 95/50 96 05/09/22 12:41 79 95/50 96 05/09/22 12:31 79 95/50 89 05/09/22 12:21 81 95/50 91 05/09/22 12:11 79 95/50 96 05/09/22 12:00 76 76 95/50 95 05/09/22 11:51 84 88/61 98 05/09/22 11:41 81 88/61 98 05/09/22 11:31 83 88/61 95 05/09/22 11:21 86 88/61 91 05/09/22 11:11 81 88/61 94 05/09/22 11:00 82 87/53 93 05/09/22 10:51 79 87/53 96 05/09/22 10:41 77 87/53 97 05/09/22 10:31 78 87/53 93 05/09/22 10:21 76 87/53 93 05/09/22 10:11 77 87/53 94 05/09/22 10:10 77 87/53 05/09/22 10:00 77 87/53 91 05/09/22 09:51 77 92/44 93 05/09/22 09:41 77 92/44 94 05/09/22 09:31 77 92/44 85 05/09/22 09:21 76 92/44 93 05/09/22 09:11 76 92/44 98 05/09/22 09:01 75 92/44 97 - Physical Examination General: No Apparent Distress Neck: Negative: JVD/HJR Lungs: Positive: Other (RA) Extremities: Absent: edema - Labs and Meds Coagulation 05/09/22 Range/Units 12:36 PT 18.5 H (12.2-14.9) Sec. INR 1.37 H (0.87-1.13) APTT 37.7 H (24.2-36.6) Sec. CBC 05/09/22 Range/Units 12:36 Hgb 8.7 L (11.8-15.2) gm/dl Hct 25.0 L (35.5-45.6) % Plt Count 224 (140-440) K/mm3 - Imaging and Cardiology EKG: report reviewed, image reviewed Echo: report reviewed, other - Telemetry EKG Rhythm: Paced Pacemaker: ventricular pacing w/capt
[2022-05-10] MEDS ORDERED: VANCOMYCIN PHARMACY TO DOSE IV SCH (10:00)
[2022-05-10 10:21] LABS: Hematocrit 27.3 % (35.5-45.6); Mean Corpuscular HGB Conc 33 % (32-34); Mean Corpuscular Volume 90 fl (84-94); Platelet Count 254 K/mm3 (140-440); Red Blood Count 3.02 M/mm3 (3.65-5.03)
[2022-05-10 10:42] LABS: Red Cell Distribution Width 24.1 % (13.2-15.2)
[2022-05-10] MEDS: DEXAMETHASONE 4 MG TAB PO SCH (10:46)
[2022-05-10] MEDS: FAMOTIDINE 20 MG TAB PO SCH ×2 (10:46→21:17)
[2022-05-10] MEDS: VANCOMYCIN 1,250 MG in SODIUM CHLORIDE 0.9% 250ML 250 ML IV SCH ×2 (10:46→21:17)
[2022-05-10 11:20] LABS: BUN/Creatinine Ratio 35; Blood Urea Nitrogen 45 mg/dL (9-20); Calcium 8.8 mg/dL (8.4-10.2); Hemolysis Index 2
--- NOTE | 2022-05-10 12:32 | Progress Note ---
Assessment and Plan 46 y/o male admitted with sepsis, thought secondary to endocarditis and possible line infection now COVID positive and hypotensive. 05/10/22: Off pressors and stable. Unfortunately cannot go to tele secondary to COVID state and third floor cannot do dobutamine. Will transfer to step down. Continue steroids. Guarded prognosis. 1. Discussed with [facility], will do a trial of dobutamine 2.5 to see if we can wean the levophed and allow for diuresis 2. ID consult 3. Started Decadron 6 daily 4. Abx and await ID recs for changes 5. Currently not hypoxic as he is on room air but would suggest prone during the day as tolerated and sleep prone at night even though he has no oxygen requirement. Guarded prognosis CCT 31 minutes Subjective Date of service: 05/10/22 Principal diagnosis: COVID-19, Bioprosthetic MV IE vs Thrombus, HFrEF Interval history: off levophed since yesterday around 1630. Stable however COVID positive so not able to go to tele. Objective - Constitutional Vitals: Vital Signs - 12hr 05/10/22 05/10/22 05/10/22 00:30 00:46 01:00 Temperature Pulse Rate 75 71 72 Pulse Rate [ From Monitor] Respiratory 16 18 21 Rate Blood Pressure 105/62 105/62 116/67 O2 Sat by Pulse 99 98 97 Oximetry 05/10/22 05/10/22 05/10/22 01:30 02:00 02:30 Temperature Pulse Rate 70 71 70 Pulse Rate [ From Monitor] Respiratory 18 15 16 Rate Blood Pressure 116/67 104/54 104/54 O2 Sat by Pulse 98 98 98 Oximetry 05/10/22 05/10/22 05/10/22 03:00 03:30 04:00 Temperature 97.8 F Pulse Rate 71 69 71 Pulse Rate [ 71 From Monitor] Respiratory 16 15 16 Rate Blood Pressure 100/52 100/52 100/59 O2 Sat by Pulse 93 93 98 Oximetry 05/10/22 05/10/22 05/10/22 04:30 05:00 05:30 Temperature Pulse Rate 72 68 77 Pulse Rate [ From Monitor] Respiratory 17 16 19 Rate Blood Pressure 100/59 112/72 112/72 O2 Sat by Pulse 95 97 100 Oximetry 05/10/22 05/10/22 06:00 07:34 Temperature 98.1 F Pulse Rate 70 Pulse Rate [ From Monitor] Respiratory 19 Rate Blood Pressure 112/72 O2 Sat by Pulse 99 Oximetry - Labs CBC & Chem 7: 05/10/22 09:39 05/10/22 09:39 Labs: Abnormal lab results 05/09/22 05/09/22 05/09/22 Range/Units 12:36 12:36 17:39 RBC (3.65-5.03) M/mm3 Hgb 8.7 L (11.8-15.2) gm/dl Hct 25.0 L (35.5-45.6) % RDW (13.2-15.2) % PT 18.5 H (12.2-14.9) Sec. INR 1.37 H (0.87-1.13) APTT 37.7 H (24.2-36.6) Sec. D-Dimer 518.17 H (0-234) ng/mlDDU Heparin Anti-Xa Level (0.3-0.7) U.I./ml Sodium (137-145) mmol/L Chloride (98-107) mmol/L Carbon Dioxide (22-30) mmol/L BUN (9-20) mg/dL Glucose (75-100) mg/dL Ferritin (30.0-300.0) ng/mL Urine Creatinine (0.1-20.0) mg/dL 05/09/22 05/09/22 05/09/22 Range/Units 17:39 17:39 21:09 RBC (3.65-5.03) M/mm3 Hgb (11.8-15.2) gm/dl Hct (35.5-45.6) % RDW (13.2-15.2) % PT (12.2-14.9) Sec. INR (0.87-1.13) APTT (24.2-36.6) Sec. D-Dimer (0-234) ng/mlDDU Heparin Anti-Xa Level < 0.10 L < 0.10 L (0.3-0.7) U.I./ml Sodium (137-145) mmol/L Chloride (98-107) mmol/L Carbon Dioxide (22-30) mmol/L BUN (9-20) mg/dL Glucose (75-100) mg/dL Ferritin 722.2 H (30.0-300.0) ng/mL Urine Creatinine (0.1-20.0) mg/dL 05/10/22 05/10/22 05/10/22 Range/Units 04:52 09:39 09:39 RBC 3.02 L (3.65-5.03) M/mm3 Hgb 9.0 L (11.8-15.2) gm/dl Hct 27.3 L (35.5-45.6) % RDW 24.1 H (13.2-15.2) % PT (12.2-14.9) Sec. INR (0.87-1.13) APTT (24.2-36.6) Sec. D-Dimer (0-234) ng/mlDDU Heparin Anti-Xa Level 0.23 L (0.3-0.7) U.I./ml Sodium 134 L (137-145) mmol/L Chloride 97.1 L (98-107) mmol/L Carbon Dioxide 21 L (22-30) mmol/L BUN 45 H (9-20) mg/dL Glucose 129 H (75-100) mg/dL Ferritin (30.0-300.0) ng/mL Urine Creatinine (0.1-20.0) mg/dL 05/10/22 Range/Units Unknown RBC (3.65-5.03) M/mm3 Hgb (11.8-15.2) gm/dl Hct (35.5-45.6) % RDW (13.2-15.2) % PT (12.2-14.9) Sec. INR (0.87-1.13) APTT (24.2-36.6) Sec. D-Dimer (0-234) ng/mlDDU Heparin Anti-Xa Level (0.3-0.7) U.I./ml Sodium (137-145) mmol/L Chloride (98-107) mmol/L Carbon Dioxide (22-30) mmol/L BUN (9-20) mg/dL Glucose (75-100) mg/dL Ferritin (30.0-300.0) ng/mL Urine Creatinine 66.2 H (0.1-20.0) mg/dL Medications & Allergies - Medications Allergies/Adverse Reactions: Allergies No Known Allergies Allergy (Verified 05/08/22 16:35) Home Medications: Home Medications Medication Instructions Recorded Confirmed Last Taken Type carvediloL [Coreg] 25 mg PO BID 30 Days #60 tablet 04/06/22 04/14/22 04/12/22 Rx Acetaminophen [Acetaminophen TAB] 650 mg PO Q4H PRN tablet 04/14/22 Unknown Rx Apixaban [Eliquis] 5 mg PO BID tablet 04/14/22 Unknown Rx AtorvaSTATin 10 mg PO QHS tablet 04/14/22 Unknown Rx Benzocaine 20% Topical [place] 3 spray MM PREOP packet 04/14/22 Unknown Rx [Hurricaine One 20% Topical [place]] Calcium Carbonate [Tums 500MG CHEW] 500 mg PO Q4H PRN tablet 04/14/22 Unknown Rx Midodrine [Proamatine] 10 mg PO TID@0800,1200,1600 tablet 04/14/22 Unknown Rx Sennosides/Docusate [Senokot S] 1 tab PO QHS tablet 04/14/22 Unknown Rx oxyCODONE /ACETAMINOPHEN [Percocet 1 tab PO Q4H PRN tablet 04/14/22 Unknown Rx 5/325 mg] Active Medications: Generic Name Dose Route Start Last Admin Trade Name Freq PRN Reason Stop Dose Admin Acetaminophen 650 mg 05/08/22 22:09 Acetaminophen 325 Mg Tab PO Q4H PRN Pain MILD(1-3)/Fever >100.5/PEREZ Atorvastatin Calcium 10 mg 05/09/22 22:00 05/09/22 21:15 Atorvastatin 10 Mg Tab PO 10 mg QHS SARAH Administration Calcium Carbonate/Glycine 500 mg 05/08/22 22:13 Calcium Carbonate 500 Mg Tab Chew PO Q4H PRN Indigestion Dexamethasone 6 mg 05/09/22 12:00 05/10/22 10:46 Dexamethasone 4 Mg Tab PO 6 mg Q24HR SARAH Administration Famotidine 20 mg 05/09/22 10:00 05/10/22 10:46 Famotidine 20 Mg Tab PO 20 mg BID SARAH Administration Heparin Sodium (Porcine) 3,600 unit 05/09/22 11:00 Heparin 10,000 Units/10 Ml Vial 40 unit/kg (3600 unit) IV Q6H PRN Anti-Xa Assay < 0.1 units/ml NORepinephrine/NS 8 MG-250 ML 8 mg in 250 mls @ 3.75 mls/hr 05/08/22 22:00 05/09/22 16:00 Norepinephrine/Ns 8 Mg-250 Ml (Double Conc) IV 0 mcg/min TITRATE SARAH 0 mls/hr Titration Protocol 2 MCG/MIN Ceftriaxone Sodium 2 gm in 100 mls @ 200 mls/hr 05/08/22 23:00 05/09/22 23:30 Rocephin/Ns 2 Gm/100 Ml IV 200 mls/hr Q24H SARAH Administration Protocol Vancomycin HCl 1,250 mg/ 275 mls @ 166.667 mls/hr 05/09/22 10:00 05/10/22 10:46 Sodium Chloride IV 166.667 mls/hr Q12H SARAH Administration Dobutamine HCl/Dextrose 500 mg in 250 mls @ 6.833 mls/hr 05/09/22 11:00 05/09/22 11:37 Dobutrex Drip 500mg/D5w 250ml IV 2.5 mcg/kg/min DIRECT SARAH 6.833 mls/hr Administration Protocol 2.5 MCG/KG/MIN Heparin Sodium/Sodium Chloride 25,000 unit in 500 mls @ 20 mls/hr 05/09/22 11:00 05/10/22 05:40 Heparin/ 0.45% Nacl-25,000 Unit/500 Ml IV 1,200 units/hr TITRATE SARAH 24 mls/hr Titration Protocol 1,000 UNITS/HR Ibuprofen 600 mg 05/09/22 02:34 05/09/22 21:15 Ibuprofen 600 Mg Tab PO 600 mg Q6H PRN Administration Non Cardiac Pain or Temp>100.5 Midodrine 10 mg 05/09/22 08:00 05/10/22 08:37 Midodrine 10 Mg Tab PO 10 mg TID@0800,1200,1600 SARAH Administration Morphine Sulfate 2 mg 05/08/22 22:09 Morphine 2 Mg/1 Ml Inj IV Q4H PRN Pain, Moderate (4-6) Morphine Sulfate 4 mg 05/08/22 22:09 Morphine 4 Mg/1 Ml Inj IV Q4H PRN Pain , Severe (7-10) Ondansetron HCl 4 mg 05/08/22 22:09 Ondansetron 4 Mg/2 Ml Inj IV Q8H PRN Nausea And Vomiting Sodium Chloride 10 ml 05/09/22 10:00 05/10/22 10:46 Sodium Chloride 0.9% 10 Ml Flush Syringe IV 10 ml BID SARAH Administration Sodium Chloride 10 ml 05/08/22 22:09 Sodium Chloride 0.9% 10 Ml Flush Syringe IV PRN PRN LINE FLUSH HEART Score - HEART Score EKG: Non-specific Age: < 45 Risk factors: 1-2 risk factors Troponin: Troponin T < 0.010 ng/mL (0.00-0.029) 05/08/22 17:23 Troponin: < normal limit
--- NOTE | 2022-05-10 14:39 | Electrocardiograph Report ---
[facility] Test Date: 2022-05-08 Test Time: 18:22:45 Pat Name: PAUL HARVEY Department: Room: A263 1 Gender: M [employer]: ANTONY : 1975 Requested By: PAUL OTOOLE Order Number: [id number] Reading MD: Laura Fuentes Measurements Intervals [place] Rate: 81 P: 40 MT: 149 QRS: -83 QRSD: 192 T: 66 QT: 467 QTc: 542 Interpretive Statements Atrial-sensed ventricular-paced rhythm Biventricular paced rhythm Compared to ECG 04/10/2022 17:40:25 No significant changes Electronically Signed On 05-10-2022 14:38:39 EDT by Laura Fuentes
[2022-05-10] MEDS: HEPARIN/ 0.45% NACL DRIP 25,000 UNIT/500 ML BAG IV SCH (15:13)
--- NOTE | 2022-05-10 15:19 | Progress Note ---
<MINHSARTHAK EmanuelSrini - Last Filed: 05/10/22 17:00> Assessment and Plan Assessment and plan: This is a 46-year-old male with HFrEF, s/p ppm, aflutter admitted with Sepsis Neuro: NAD -Reorientation as needed -Maintain sleep-wake cycle -As needed analgesia Cardiac: Hypotension, h/o HFrEF, NICMP (EF10-15%), valvular heart disease s/p MVR, chronic heart block s/p PPM, aflutter, S/p [place] Occlusion (11/2016), Severe Bioprosthetic MS, Severe TR -Cardiology consulted, appreciate recommendations -Blood pressure monitoring per protocol -s/p Vasopressor support with levophed -MAP goal greater than 65 -Dobutamine gtt -Midodrine TID -Echocardiogram pending -pro BNP 5393 Respiratory: NAD -CCM consulted, appreciate recommendations -Supplemental oxygenation as needed -Pulmonary hygiene -SPO2 monitoring GI: h/o chronic HCV -24 hours -1438 ml -PPI -Cardiac diet : Acute Kidney Injury likely secondary to vasomotor nephropathy (resolved) -Monitor intake and output -Renally dose medications -Avoid nephrotoxic medications -FeNa prerenal but will hold off fluid in setting on HF and COVID -Renal ultrasound pending -Trend BMP ID: Covid 19 infection, r/o endocarditis -Infectious disease consulted, appreciate recommendation -Antibiotic therapy with Rocephin, vancomycin -Contact and Droplet precautions -Trend COVID-19 inflammatory markers every 48 hours -f/u blood culture -Monitor WBC and temperature curve Endo: NAD -Avoid hypoglycemia Heme: NAD -Heparin gtt -Trend CBC -Transfuse hemoglobin less than 7 -SCDs to BLE while in bed The high probability of a clinically significant, sudden or life threatening deterioration of the [multi] system(s) required my full and direct attention, intervention and personal management. The aggregate critical care time was [60] minutes. This time is in addition to time spent performing reported procedures but includes the following: [x] Data Review and interpretation [x] Patient assessment and monitoring of vital signs [x] Documentation [x] Medication orders and management Disposition Plan: imcu Total Time Spent with Patient (Minutes): 60 History Interval history: This is a 46-year-old male with HFrEF/NICMP (EF 10-15%), chronic HCV infection, valvular heart disease s/p MVR, Chronic heart block s/p PPM (2017), AFlutter s/p ligation who presented to the emergency department on 05/08 with complaints of chest pain. 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 Patient was admitted to the hospitalist service with consults to [facility] and cardiology with acute on chronic heart failure and MRSA in fection. Hospital course: 05/09: Patient tested positive for COVID-19, ID consulted, started on steroids. Remains on levophed. Started on dobutamine and midodrine. 05/10: Stable. renal function slight improved, Levophed off. Transfer to [facility] Hospitalist Physical - Constitutional Vitals: Temp Pulse Resp BP Pulse Ox 97.7 F 70 19 112/72 99 05/10/22 12:41 05/10/22 06:00 05/10/22 06:00 05/10/22 06:00 05/10/22 06:00 General appearance: Present: no acute distress - EENT Eyes: Present: PERRL, EOM intact ENT: hearing intact, clear oral mucosa, dentition normal - Neck Neck: Present: normal ROM - Respiratory Respiratory effort: normal Respiratory: bilateral: diminished - Cardiovascular Rhythm: regular Heart Sounds: Present: S1 & S2 - Extremities Extremities: no ischemia, pulses intact, pulses symmetrical Peripheral Pulses: within normal limits - Abdominal General gastrointestinal: soft, non-tender, non-distended, normal bowel sounds - Integumentary Integumentary: Present: warm, dry - Psychiatric Psychiatric: cooperative - Neurologic Neurologic: CNII-XII intact, no focal deficits, moves all extremities - Allied Health Allied health notes reviewed: nursing HEART Score - HEART Score EKG: Non-specific Age: < 45 Risk factors: 1-2 risk factors Troponin: Troponin T < 0.010 ng/mL (0.00-0.029) 05/08/22 17:23 Troponin: < normal limit Results - Labs CBC & Chem 7: 05/10/22 09:39 05/10/22 09:39 Labs: Laboratory Last Values WBC 8.5 K/mm3 (4.5-11.0) 05/10/22 09:39 RBC 3.02 M/mm3 (3.65-5.03) L 05/10/22 09:39 Hgb 9.0 gm/dl (11.8-15.2) L 05/10/22 09:39 Hct 27.3 % (35.5-45.6) L 05/10/22 09:39 MCV 90 fl (84-94) 05/10/22 09:39 MCH 30 pg (28-32) 05/10/22 09:39 MCHC 33 % (32-34) 05/10/22 09:39 RDW 24.1 % (13.2-15.2) H 05/10/22 09:39 Plt Count 254 K/mm3 (140-440) 05/10/22 09:39 [place]wey % (Auto) 14.0 % (0.0-7.3) H 05/09/22 04:55 Eos % (Auto) 1.3 % (0.0-4.3) 05/09/22 04:55 [place] # (Auto) 1.2 K/mm3 (0.0-0.8) H 05/09/22 04:55 Eos # (Auto) 0.1 K/mm3 (0.0-0.4) 05/09/22 04:55 Baso # (Auto) 0.1 K/mm3 (0.0-0.1) 05/09/22 04:55 Add Manual Diff Complete 05/09/22 04:55 Total Counted 100 05/09/22 04:55 Seg Neutrophils % 76.4 % (40.0-70.0) H 05/09/22 04:55 Seg Neuts % (Manual) 73.0 % (40.0-70.0) H 05/09/22 04:55 Band Neutrophils % 0 % 05/09/22 04:55 Lymphocytes % (Manual) 23.0 % (13.4-35.0) 05/09/22 04:55 Reactive Lymphs % (Man) 0 % 05/09/22 04:55 Monocytes % (Manual) 4.0 % (0.0-7.3) 05/09/22 04:55 Eosinophils % (Manual) 0 % (0.0-4.3) 05/09/22 04:55 Basophils % (Manual) 0 % (0.0-1.8) 05/09/22 04:55 Metamyelocytes % 0 % 05/09/22 04:55 Myelocytes % 0 % 05/09/22 04:55 Promyelocytes % 0 % 05/09/22 04:55 Blast Cells % 0 % 05/09/22 04:55 Nucleated RBC % Not Reportable 05/09/22 04:55 Seg Neutrophils # 6.4 K/mm3 (1.8-7.7) 05/09/22 04:55 Seg Neutrophils # Man 6.2 K/mm3 (1.8-7.7) 05/09/22 04:55 Band Neutrophils # 0.0 K/mm3 05/09/22 04:55 Lymphocytes # (Manual) 2.0 K/mm3 (1.2-5.4) 05/09/22 04:55 Abs React Lymphs (Man) 0.0 K/mm3 05/09/22 04:55 Monocytes # (Manual) 0.3 K/mm3 (0.0-0.8) 05/09/22 04:55 Eosinophils # (Manual) 0.0 K/mm3 (0.0-0.4) 05/09/22 04:55 Basophils # (Manual) 0.0 K/mm3 (0.0-0.1) 05/09/22 04:55 Metamyelocytes # 0.0 K/mm3 05/09/22 04:55 Myelocytes # 0.0 K/mm3 05/09/22 04:55 Promyelocytes # 0.0 K/mm3 05/09/22 04:55 Blast Cells # 0.0 K/mm3 05/09/22 04:55 WBC Morphology Not Reportable 05/09/22 04:55 Hypersegmented Neuts Not Reportable 05/09/22 04:55 Hyposegmented Neuts Not Reportable 05/09/22 04:55 Hypogranular Neuts Not Reportable 05/09/22 04:55 Smudge Cells Not Reportable 05/09/22 04:55 Toxic Granulation Not Reportable 05/09/22 04:55 Toxic Vacuolation Not Reportable 05/09/22 04:55 Dohle Bodies Not Reportable 05/09/22 04:55 Pelger-Huet Anomaly Not Reportable 05/09/22 04:55 Gray Rods Not Reportable 05/09/22 04:55 Platelet Estimate Consistent w auto 05/09/22 04:55 Clumped Platelets Not Reportable 05/09/22 04:55 Plt Clumps, EDTA Not Reportable 05/09/22 04:55 Large Platelets Few 05/09/22 04:55 Giant Platelets Not Reportable 05/09/22 04:55 Platelet Satelliting Not Reportable 05/09/22 04:55 Plt Morphology Comment Not Reportable 05/09/22 04:55 RBC Morphology Not Reportable 05/09/22 04:55 Dimorphic RBCs Not Reportable 05/09/22 04:55 Polychromasia Few 05/09/22 04:55 Hypochromasia Not Reportable 05/09/22 04:55 Poikilocytosis Not Reportable 05/09/22 04:55 Anisocytosis 2+ 05/09/22 04:55 Microcytosis Not Reportable 05/09/22 04:55 Macrocytosis Not Reportable 05/09/22 04:55 Spherocytes Not Reportable 05/09/22 04:55 Pappenheimer Bodies Not Reportable 05/09/22 04:55 Sickle Cells Not Reportable 05/09/22 04:55 Target Cells 2+ 05/09/22 04:55 Tear Drop Cells Not Reportable 05/09/22 04:55 Ovalocytes Not Reportable 05/09/22 04:55 Helmet Cells Not Reportable 05/09/22 04:55 [place] Bodies Not Reportable 05/09/22 04:55 Muse Rings Not Reportable 05/09/22 04:55 Julio Cells Not Reportable 05/09/22 04:55 Bite Cells Not Reportable 05/09/22 04:55 Crenated Cell Not Reportable 05/09/22 04:55 Elliptocytes Not Reportable 05/09/22 04:55 Acanthocytes (Spur) Not Reportable 05/09/22 04:55 Rouleaux Not Reportable 05/09/22 04:55 Hemoglobin C Crystals Not Reportable 05/09/22 04:55 Schistocytes Not Reportable 05/09/22 04:55 Malaria parasites Not Reportable 05/09/22 04:55 Shubham Bodies Not Reportable 05/09/22 04:55 Hem Pathologist Commnt No 05/09/22 04:55 PT 18.5 Sec. (12.2-14.9) H 05/09/22 12:36 INR 1.37 (0.87-1.13) H 05/09/22 12:36 APTT 37.7 Sec. (24.2-36.6) H 05/09/22 12:36 D-Dimer 518.17 ng/mlDDU (0-234) H 05/09/22 17:39 Heparin Anti-Xa Level 0.23 U.I./ml (0.3-0.7) L 05/10/22 04:52 Sodium 134 mmol/L (137-145) L 05/10/22 09:39 Potassium 3.8 mmol/L (3.6-5.0) 05/10/22 09:39 Chloride 97.1 mmol/L (98-107) L 05/10/22 09:39 Carbon Dioxide 21 mmol/L (22-30) L 05/10/22 09:39 Anion Gap 20 mmol/L 05/10/22 09:39 BUN 45 mg/dL (9-20) H 05/10/22 09:39 Creatinine 1.3 mg/dL (0.8-1.3) 05/10/22 09:39 Estimated GFR > 60 ml/min 05/10/22 09:39 BUN/Creatinine Ratio 35 % 05/10/22 09:39 Glucose 129 mg/dL (75-100) H 05/10/22 09:39 POC Glucose 104 mg/dL (70-105) 05/10/22 11:54 Calcium 8.8 mg/dL (8.4-10.2) 05/10/22 09:39 Ferritin 722.2 ng/mL (30.0-300.0) H 05/09/22 17:39 Total Bilirubin 20.60 mg/dL (0.1-1.2) H 05/08/22 17:23 AST 21 units/L (5-40) 05/08/22 17:23 ALT < 5 units/L (7-56) L 05/08/22 17:23 Alkaline Phosphatase 110 units/L (35-129) 05/08/22 17:23 Troponin T < 0.010 ng/mL (0.00-0.029) 05/08/22 17:23 NT-Pro-B Natriuret Pep 5393 pg/mL (0-450) H 05/08/22 17:23 Total Protein 5.5 g/dL (6.3-8.2) L 05/08/22 17:23 Albumin 3.4 g/dL (3.9-5) L 05/08/22 17:23 Albumin/Globulin Ratio 1.6 % 05/08/22 17:23 Urine Creatinine 66.2 mg/dL (0.1-20.0) H 05/10/22 Unknown Urine Sodium 35 mmol/L 05/10/22 Unknown Urine Urea Nitrogen 671 05/10/22 Unknown SARS-CoV-2 (PCR) Positive (Negative) A 05/09/22 10:40 Microbiology: Microbiology 05/08/22 22:25 Peripheral/Venous Blood Culture - Preliminary NO GROWTH AFTER 24 HOURS 05/08/22 22:25 Peripheral/Venous Blood Culture - Preliminary NO GROWTH AFTER 24 HOURS Carvajal/IV: Voiding Method Urinal Active Medications - Current Medications Current Medications: Generic Name Dose Route Start Last Admin Trade Name Freq PRN Reason Stop Dose Admin Acetaminophen 650 mg 05/08/22 22:09 Acetaminophen 325 Mg Tab PO Q4H PRN Pain MILD(1-3)/Fever >100.5/PEREZ Atorvastatin Calcium 10 mg 05/09/22 22:00 05/09/22 21:15 Atorvastatin 10 Mg Tab PO 10 mg QHS SARAH Administration Calcium Carbonate/Glycine 500 mg 05/08/22 22:13 Calcium Carbonate 500 Mg Tab Chew PO Q4H PRN Indigestion Dexamethasone 6 mg 05/09/22 12:00 05/10/22 10:46 Dexamethasone 4 Mg Tab PO 6 mg Q24HR SARAH Administration Famotidine 20 mg 05/09/22 10:00 05/10/22 10:46 Famotidine 20 Mg Tab PO 20 mg BID SARAH Administration Heparin Sodium (Porcine) 3,600 unit 05/09/22 11:00 Heparin 10,000 Units/10 Ml Vial 40 unit/kg (3600 unit) IV Q6H PRN Anti-Xa Assay < 0.1 units/ml NORepinephrine/NS 8 MG-250 ML 8 mg in 250 mls @ 3.75 mls/hr 05/08/22 22:00 05/09/22 16:00 Norepinephrine/Ns 8 Mg-250 Ml (Double Conc) IV 0 mcg/min TITRATE SARAH 0 mls/hr Titration Protocol 2 MCG/MIN Ceftriaxone Sodium 2 gm in 100 mls @ 200 mls/hr 05/08/22 23:00 05/09/22 23:30 Rocephin/Ns 2 Gm/100 Ml IV 200 mls/hr Q24H SARAH Administration Protocol Vancomycin HCl 1,250 mg/ 275 mls @ 166.667 mls/hr 05/09/22 10:00 05/10/22 10:46 Sodium Chloride IV 166.667 mls/hr Q12H SARAH Administration Dobutamine HCl/Dextrose 500 mg in 250 mls @ 6.833 mls/hr 05/09/22 11:00 05/09/22 11:37 Dobutrex Drip 500mg/D5w 250ml IV 2.5 mcg/kg/min DIRECT SARAH 6.833 mls/hr Administration Protocol 2.5 MCG/KG/MIN Heparin Sodium/Sodium Chloride 25,000 unit in 500 mls @ 20 mls/hr 05/09/22 11:00 05/10/22 15:13 Heparin/ 0.45% Nacl-25,000 Unit/500 Ml IV 1,200 units/hr TITRATE SARAH 24 mls/hr Administration Protocol 1,000 UNITS/HR Ibuprofen 600 mg 05/09/22 02:34 05/09/22 21:15 Ibuprofen 600 Mg Tab PO 600 mg Q6H PRN Administration Non Cardiac Pain or Temp>100.5 Midodrine 10 mg 05/09/22 08:00 05/10/22 15:13 Midodrine 10 Mg Tab PO 10 mg TID@0800,1200,1600 SARAH Administration Morphine Sulfate 2 mg 05/08/22 22:09 Morphine 2 Mg/1 Ml Inj IV Q4H PRN Pain, Moderate (4-6) Morphine Sulfate 4 mg 05/08/22 22:09 Morphine 4 Mg/1 Ml Inj IV Q4H PRN Pain , Severe (7-10) Ondansetron HCl 4 mg 05/08/22 22:09 Ondansetron 4 Mg/2 Ml Inj IV Q8H PRN Nausea And Vomiting Sodium Chloride 10 ml 05/09/22 10:00 05/10/22 10:46 Sodium Chloride 0.9% 10 Ml Flush Syringe IV 10 ml BID SARAH Administration Sodium Chloride 10 ml 05/08/22 22:09 Sodium Chloride 0.9% 10 Ml Flush Syringe IV PRN PRN LINE FLUSH <NNAMDI SHI - Last Filed: 05/18/22 11:29> History Interval history: I saw and evaluated the patient. I agree with the findings and the plan of care as documented in the Nurse Practitioner's~note, with the following corrections and additions. Hospitalist Physical - Constitutional Vitals: Temp Pulse Resp BP Pulse Ox 97.5 F L 71 16 101/63 96 05/13/22 00:04 05/13/22 12:22 05/13/22 08:41 05/13/22 12:22 05/13/22 08:41 HEART Score - HEART Score Troponin: Troponin T < 0.010 ng/mL (0.00-0.029) 05/08/22 17:23 Results - Labs CBC & Chem 7: 05/13/22 06:40 05/13/22 06:40 Labs: Laboratory Last Values WBC 11.6 K/mm3 (4.5-11.0) H 05/12/22 06:04 RBC 2.77 M/mm3 (3.65-5.03) L 05/12/22 06:04 Hgb 8.7 gm/dl (11.8-15.2) L 05/13/22 06:40 Hct 26.8 % (35.5-45.6) L 05/13/22 06:40 MCV 90 fl (84-94) 05/12/22 06:04 MCH 31 pg (28-32) 05/12/22 06:04 MCHC 34 % (32-34) 05/12/22 06:04 RDW 23.9 % (13.2-15.2) H 05/12/22 06:04 Plt Count 279 K/mm3 (140-440) 05/13/22 06:40 [place] % (Auto) 14.0 % (0.0-7.3) H 05/09/22 04:55 Eos % (Auto) 1.3 % (0.0-4.3) 05/09/22 04:55 [place] # (Auto) 1.2 K/mm3 (0.0-0.8) H 05/09/22 04:55 Eos # (Auto) 0.1 K/mm3 (0.0-0.4) 05/09/22 04:55 Baso # (Auto) 0.1 K/mm3 (0.0-0.1) 05/09/22 04:55 Add Manual Diff Complete 05/12/22 06:04 Total Counted 100 05/12/22 06:04 Seg Neutrophils % 76.4 % (40.0-70.0) H 05/09/22 04:55 Seg Neuts % (Manual) 83.0 % (40.0-70.0) H 05/12/22 06:04 Band Neutrophils % 1.0 % 05/12/22 06:04 Lymphocytes % (Manual) 6.0 % (13.4-35.0) L 05/12/22 06:04 Reactive Lymphs % (Man) 0 % 05/12/22 06:04 Monocytes % (Manual) 8.0 % (0.0-7.3) H 05/12/22 06:04 Eosinophils % (Manual) 0 % (0.0-4.3) 05/12/22 06:04 Basophils % (Manual) 0 % (0.0-1.8) 05/12/22 06:04 Metamyelocytes % 2.0 % 05/12/22 06:04 Myelocytes % 0 % 05/12/22 06:04 Promyelocytes % 0 % 05/12/22 06:04 Blast Cells % 0 % 05/12/22 06:04 Nucleated RBC % Not Reportable 05/12/22 06:04 Seg Neutrophils # 6.4 K/mm3 (1.8-7.7) 05/09/22 04:55 Seg Neutrophils # Man 9.6 K/mm3 (1.8-7.7) H 05/12/22 06:04 Band Neutrophils # 0.1 K/mm3 05/12/22 06:04 Lymphocytes # (Manual) 0.7 K/mm3 (1.2-5.4) L 05/12/22 06:04 Abs React Lymphs (Man) 0.0 K/mm3 05/12/22 06:04 Monocytes # (Manual) 0.9 K/mm3 (0.0-0.8) H 05/12/22 06:04 Eosinophils # (Manual) 0.0 K/mm3 (0.0-0.4) 05/12/22 06:04 Basophils # (Manual) 0.0 K/mm3 (0.0-0.1) 05/12/22 06:04 Metamyelocytes # 0.2 K/mm3 05/12/22 06:04 Myelocytes # 0.0 K/mm3 05/12/22 06:04 Promyelocytes # 0.0 K/mm3 05/12/22 06:04 Blast Cells # 0.0 K/mm3 05/12/22 06:04 WBC Morphology Not Reportable 05/12/22 06:04 Hypersegmented Neuts Not Reportable 05/12/22 06:04 Hyposegmented Neuts Not Reportable 05/12/22 06:04 Hypogranular Neuts Not Reportable 05/12/22 06:04 Smudge Cells Not Reportable 05/12/22 06:04 Toxic Granulation Not Reportable 05/12/22 06:04 Toxic Vacuolation Not Reportable 05/12/22 06:04 Dohle Bodies Not Reportable 05/12/22 06:04 Pelger-Huet Anomaly Not Reportable 05/12/22 06:04 Gray Rods Not Reportable 05/12/22 06:04 Platelet Estimate Consistent w auto 05/12/22 06:04 Clumped Platelets Not Reportable 05/12/22 06:04 Plt Clumps, EDTA Not Reportable 05/12/22 06:04 Large Platelets Not Reportable 05/12/22 06:04 Giant Platelets Not Reportable 05/12/22 06:04 Platelet Satelliting Not Reportable 05/12/22 06:04 Plt Morphology Comment Not Reportable 05/12/22 06:04 RBC Morphology Not Reportable 05/12/22 06:04 Dimorphic RBCs Not Reportable 05/12/22 06:04 Polychromasia Not Reportable 05/12/22 06:04 Hypochromasia Not Reportable 05/12/22 06:04 Poikilocytosis 1+ 05/12/22 06:04 Anisocytosis 2+ 05/12/22 06:04 Microcytosis Not Reportable 05/12/22 06:04 Macrocytosis Not Reportable 05/12/22 06:04 Spherocytes Not Reportable 05/12/22 06:04 Pappenheimer Bodies Not Reportable 05/12/22 06:04 Sickle Cells Not Reportable 05/12/22 06:04 Target Cells 1+ 05/12/22 06:04 Tear Drop Cells Not Reportable 05/12/22 06:04 Ovalocytes Not Reportable 05/12/22 06:04 Helmet Cells Not Reportable 05/12/22 06:04 [place] Bodies Not Reportable 05/12/22 06:04 Muse Rings Not Reportable 05/12/22 06:04 [place] Cells Not Reportable 05/12/22 06:04 Bite Cells Not Reportable 05/12/22 06:04 Crenated Cell Not Reportable 05/12/22 06:04 Elliptocytes Not Reportable 05/12/22 06:04 Acanthocytes (Spur) Not Reportable 05/12/22 06:04 Rouleaux Not Reportable 05/12/22 06:04 Hemoglobin C Crystals Not Reportable 05/12/22 06:04 Schistocytes Not Reportable 05/12/22 06:04 Malaria parasites Not Reportable 05/12/22 06:04 Shubham Bodies Not Reportable 05/12/22 06:04 Hem Pathologist Commnt No 05/12/22 06:04 PT 17.0 Sec. (12.2-14.9) H 05/13/22 06:40 INR 1.24 (0.87-1.13) H 05/13/22 06:40 APTT 37.7 Sec. (24.2-36.6) H 05/09/22 12:36 D-Dimer 252.8 ng/mlDDU (0-234) H 05/13/22 06:40 Heparin Anti-Xa Level 0.10 U.I./ml (0.3-0.7) L 05/11/22 Unknown Sodium 137 mmol/L (137-145) 05/13/22 06:40 Potassium 3.4 mmol/L (3.6-5.0) L 05/13/22 06:40 Chloride 100.5 mmol/L (98-107) 05/13/22 06:40 Carbon Dioxide 25 mmol/L (22-30) 05/13/22 06:40 Anion Gap 15 mmol/L 05/13/22 06:40 BUN 30 mg/dL (9-20) H 05/13/22 06:40 Creatinine 1.3 mg/dL (0.8-1.3) 05/13/22 06:40 Estimated GFR > 60 ml/min 05/13/22 06:40 BUN/Creatinine Ratio 23 % 05/13/22 06:40 Glucose 90 mg/dL (75-100) 05/13/22 06:40 POC Glucose 104 mg/dL (70-105) 05/10/22 11:54 Calcium 8.8 mg/dL (8.4-10.2) 05/13/22 06:40 Ferritin 666.2 ng/mL (30.0-300.0) H 05/13/22 06:40 Total Bilirubin 15.60 mg/dL (0.1-1.2) H 05/13/22 06:40 AST 16 units/L (5-40) 05/13/22 06:40 ALT < 5 units/L (7-56) L 05/13/22 06:40 Alkaline Phosphatase 99 units/L (35-129) 05/13/22 06:40 Lactate Dehydrogenase 209 units/L (91-180) H 05/13/22 06:40 Troponin T < 0.010 ng/mL (0.00-0.029) 05/08/22 17:23 C-Reactive Protein 2.00 mg/dL (0.00-1.30) H 05/13/22 06:40 NT-Pro-B Natriuret Pep 5393 pg/mL (0-450) H 05/08/22 17:23 Total Protein 5.8 g/dL (6.3-8.2) L 05/13/22 06:40 Albumin 3.4 g/dL (3.9-5) L 05/13/22 06:40 Albumin/Globulin Ratio 1.4 % 05/13/22 06:40 Procalcitonin 0.55 ng/mL (<0.15) 05/09/22 17:39 Urine Creatinine 66.2 mg/dL (0.1-20.0) H 05/10/22 Unknown Urine Sodium 35 mmol/L 05/10/22 Unknown Urine Urea Nitrogen 671 05/10/22 Unknown SARS-CoV-2 (PCR) Positive (Negative) A 05/09/22 10:40 Carvajal/IV: Voiding Method Toilet
[2022-05-10] MEDS: cefTRIAXone/NS 2 GM/100 ML 2 GM/100 ML BAG IV SCH (23:16)
[2022-05-10] MEDS: DOBUTamine/D5W 500 MG/250 ML 500 MG/250 ML BAG IV SCH (23:19)
[2022-05-11 04:19] LABS: Hematocrit 26.4 % (35.5-45.6); Hemoglobin 8.8 gm/dl (11.8-15.2)
--- NOTE | 2022-05-11 08:24 | Progress Note ---
Assessment and Plan Assessment and plan: History Interval history: This is a 46-year-old male with HFrEF/NICMP (EF 10-15%), chronic HCV infection, valvular heart disease s/p MVR, Chronic heart block s/p PPM (2016), AFlutter s/p ligation who presented to the emergency department on 05/08 with complaints of chest pain. 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 Patient was admitted to the hospitalist service with consults to CCM and cardiology with acute on chronic heart failure and MRSA infection. Hospital course: 05/09: Patient tested positive for COVID-19, ID consulted, started on steroids. Remains on levophed. Started on dobutamine and midodrine. 05/10: Stable. renal function slight improved, Levophed off. Transfer to [facility] 05/11: D/w cardiology, plan to wean off dobutamine. patient MAP optimzied. Resume IV abx therapy initiated originally by [facility] ID physician for tx of endocardi tis. Recommendation was for IV Ancef 2 g every 8 hours, total 6 weeks therapy. This was initiated on 04/27/2022 per [facility] records. Additionally, per ID, due to high risk of disease progression with COVID-19, they have ordered Remdesivir x 3 days. Once off dobutamine patient could potentially be txfr to tele bed. 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 -Midodrine TID -Echocardiogram LVEF 20-25%. severe global hypokinessis of LV. RV systolic function mildly reduced. IVC dilate. RVSP > 60 mmHg -pro BNP 5393 Respiratory: NAD -CCM consulted, appreciate recommendations -Supplemental oxygenation as needed -Pulmonary hygiene -SPO2 monitoring GI: h/o chronic HCV -24 hours -1438 ml -PPI -Cardiac diet : Acute Kidney Injury likely secondary to vasomotor nephropathy (resolved) -Monitor intake and output -Renally dose medications -Avoid nephrotoxic medications -FeNa prerenal but will hold off fluid in setting on HF and COVID -Renal ultrasound pending -Trend BMP ID: Covid 19 infection, History of endocarditis -Infectious disease consulted, appreciate recommendation - was worked up and treated for endocarditis at [facility] last month. -Antibiotic therapy with Ancef per ID 2 g q8hr IV x 6 weeks. Initial start date was 04/27/2022 per [facility] records. - Remdesivir x 3 day per ID recommendation - no indication for steroids as patient is on RA. -Contact and Droplet precautions -Trend COVID-19 inflammatory markers every 48 hours -f/u blood culture -Monitor WBC and temperature curve Endo: NAD -Avoid hypoglycemia Heme: NAD -Heparin gtt -Trend CBC -Transfuse hemoglobin less than 7 -SCDs to BLE while in bed The high probability of a clinically significant, sudden or life threatening deterioration of the [multi] system(s) required my full and direct attention, intervention and personal management. The aggregate critical care time was [60] minutes. This time is in addition to time spent performing reported procedures but includes the following: [x] Data Review and interpretation [x] Patient assessment and monitoring of vital signs [x] Documentation [x] Medication orders and management Disposition Plan: imcu Total Time Spent with Patient (Minutes): 60 History Interval history: No acute complaints on encounter. States he is well and feels at his baseline state of health. Hospitalist Physical - Physical exam Narrative exam: eneral appearance: Present: no acute distress - EENT Eyes: Present: PERRL, EOM intact ENT: hearing intact, clear oral mucosa, dentition normal - Neck Neck: Present: normal ROM - Respiratory Respiratory effort: normal Respiratory: bilateral: diminished - Cardiovascular Rhythm: regular Heart Sounds: Present: S1 & S2 - Extremities Extremities: no ischemia, pulses intact, pulses symmetrical Peripheral Pulses: within normal limits - Abdominal General gastrointestinal: soft, non-tender, non-distended, normal bowel sounds - Integumentary Integumentary: Present: warm, dry - Psychiatric Psychiatric: cooperative - Neurologic Neurologic: CNII-XII intact, no focal deficits, moves all extremities - Allied Health Allied health notes reviewed: nursing - Constitutional Vitals: Temp Pulse Resp BP Pulse Ox 97.8 F 70 19 138/84 94 05/11/22 07:29 05/11/22 08:00 05/11/22 08:00 05/11/22 08:00 05/11/22 08:00 General appearance: Present: no acute distress HEART Score - HEART Score EKG: Non-specific Age: < 45 Risk factors: 1-2 risk factors Troponin: Troponin T < 0.010 ng/mL (0.00-0.029) 05/08/22 17:23 Troponin: < normal limit Results - Labs CBC & Chem 7: 05/11/22 04:00 05/10/22 09:39 Labs: Laboratory Last Values WBC 8.5 K/mm3 (4.5-11.0) 05/10/22 09:39 RBC 3.02 M/mm3 (3.65-5.03) L 05/10/22 09:39 Hgb 8.8 gm/dl (11.8-15.2) L 05/11/22 04:00 Hct 26.4 % (35.5-45.6) L 05/11/22 04:00 MCV 90 fl (84-94) 05/10/22 09:39 MCH 30 pg (28-32) 05/10/22 09:39 MCHC 33 % (32-34) 05/10/22 09:39 RDW 24.1 % (13.2-15.2) H 05/10/22 09:39 Plt Count 272 K/mm3 (140-440) 05/11/22 04:00 [place] % (Auto) 14.0 % (0.0-7.3) H 05/09/22 04:55 Eos % (Auto) 1.3 % (0.0-4.3) 05/09/22 04:55 [place] # (Auto) 1.2 K/mm3 (0.0-0.8) H 05/09/22 04:55 Eos # (Auto) 0.1 K/mm3 (0.0-0.4) 05/09/22 04:55 Baso # (Auto) 0.1 K/mm3 (0.0-0.1) 05/09/22 04:55 Add Manual Diff Complete 05/09/22 04:55 Total Counted 100 05/09/22 04:55 Seg Neutrophils % 76.4 % (40.0-70.0) H 05/09/22 04:55 Seg Neuts % (Manual) 73.0 % (40.0-70.0) H 05/09/22 04:55 Band Neutrophils % 0 % 05/09/22 04:55 Lymphocytes % (Manual) 23.0 % (13.4-35.0) 05/09/22 04:55 Reactive Lymphs % (Man) 0 % 05/09/22 04:55 Monocytes % (Manual) 4.0 % (0.0-7.3) 05/09/22 04:55 Eosinophils % (Manual) 0 % (0.0-4.3) 05/09/22 04:55 Basophils % (Manual) 0 % (0.0-1.8) 05/09/22 04:55 Metamyelocytes % 0 % 05/09/22 04:55 Myelocytes % 0 % 05/09/22 04:55 Promyelocytes % 0 % 05/09/22 04:55 Blast Cells % 0 % 05/09/22 04:55 Nucleated RBC % Not Reportable 05/09/22 04:55 Seg Neutrophils # 6.4 K/mm3 (1.8-7.7) 05/09/22 04:55 Seg Neutrophils # Man 6.2 K/mm3 (1.8-7.7) 05/09/22 04:55 Band Neutrophils # 0.0 K/mm3 05/09/22 04:55 Lymphocytes # (Manual) 2.0 K/mm3 (1.2-5.4) 05/09/22 04:55 Abs React Lymphs (Man) 0.0 K/mm3 05/09/22 04:55 Monocytes # (Manual) 0.3 K/mm3 (0.0-0.8) 05/09/22 04:55 Eosinophils # (Manual) 0.0 K/mm3 (0.0-0.4) 05/09/22 04:55 Basophils # (Manual) 0.0 K/mm3 (0.0-0.1) 05/09/22 04:55 Metamyelocytes # 0.0 K/mm3 05/09/22 04:55 Myelocytes # 0.0 K/mm3 05/09/22 04:55 Promyelocytes # 0.0 K/mm3 05/09/22 04:55 Blast Cells # 0.0 K/mm3 05/09/22 04:55 WBC Morphology Not Reportable 05/09/22 04:55 Hypersegmented Neuts Not Reportable 05/09/22 04:55 Hyposegmented Neuts Not Reportable 05/09/22 04:55 Hypogranular Neuts Not Reportable 05/09/22 04:55 Smudge Cells Not Reportable 05/09/22 04:55 Toxic Granulation Not Reportable 05/09/22 04:55 Toxic Vacuolation Not Reportable 05/09/22 04:55 Dohle Bodies Not Reportable 05/09/22 04:55 Pelger-Huet Anomaly Not Reportable 05/09/22 04:55 Gray Rods Not Reportable 05/09/22 04:55 Platelet Estimate Consistent w auto 05/09/22 04:55 Clumped Platelets Not Reportable 05/09/22 04:55 Plt Clumps, EDTA Not Reportable 05/09/22 04:55 Large Platelets Few 05/09/22 04:55 Giant Platelets Not Reportable 05/09/22 04:55 Platelet Satelliting Not Reportable 05/09/22 04:55 Plt Morphology Comment Not Reportable 05/09/22 04:55 RBC Morphology Not Reportable 05/09/22 04:55 Dimorphic RBCs Not Reportable 05/09/22 04:55 Polychromasia Few 05/09/22 04:55 Hypochromasia Not Reportable 05/09/22 04:55 Poikilocytosis Not Reportable 05/09/22 04:55 Anisocytosis 2+ 05/09/22 04:55 Microcytosis Not Reportable 05/09/22 04:55 Macrocytosis Not Reportable 05/09/22 04:55 Spherocytes Not Reportable 05/09/22 04:55 Pappenheimer Bodies Not Reportable 05/09/22 04:55 Sickle Cells Not Reportable 05/09/22 04:55 Target Cells 2+ 05/09/22 04:55 Tear Drop Cells Not Reportable 05/09/22 04:55 Ovalocytes Not Reportable 05/09/22 04:55 Helmet Cells Not Reportable 05/09/22 04:55 B[place] Bodies Not Reportable 05/09/22 04:55 [place] Rings Not Reportable 05/09/22 04:55 [place] Cells Not Reportable 05/09/22 04:55 Bite Cells Not Reportable 05/09/22 04:55 Crenated Cell Not Reportable 05/09/22 04:55 Elliptocytes Not Reportable 05/09/22 04:55 Acanthocytes (Spur) Not Reportable 05/09/22 04:55 Rouleaux Not Reportable 05/09/22 04:55 Hemoglobin C Crystals Not Reportable 05/09/22 04:55 Schistocytes Not Reportable 05/09/22 04:55 Malaria parasites Not Reportable 05/09/22 04:55 Shubham Bodies Not Reportable 05/09/22 04:55 Hem Pathologist Commnt No 05/09/22 04:55 PT 18.5 Sec. (12.2-14.9) H 05/09/22 12:36 INR 1.37 (0.87-1.13) H 05/09/22 12:36 APTT 37.7 Sec. (24.2-36.6) H 05/09/22 12:36 D-Dimer 405.04 ng/mlDDU (0-234) H 05/11/22 04:00 Heparin Anti-Xa Level 0.13 U.I./ml (0.3-0.7) L 05/11/22 04:00 Sodium 134 mmol/L (137-145) L 05/10/22 09:39 Potassium 3.8 mmol/L (3.6-5.0) 05/10/22 09:39 Chloride 97.1 mmol/L (98-107) L 05/10/22 09:39 Carbon Dioxide 21 mmol/L (22-30) L 05/10/22 09:39 Anion Gap 20 mmol/L 05/10/22 09:39 BUN 45 mg/dL (9-20) H 05/10/22 09:39 Creatinine 1.3 mg/dL (0.8-1.3) 05/10/22 09:39 Estimated GFR > 60 ml/min 05/10/22 09:39 BUN/Creatinine Ratio 35 % 05/10/22 09:39 Glucose 129 mg/dL (75-100) H 05/10/22 09:39 POC Glucose 104 mg/dL (70-105) 05/10/22 11:54 Calcium 8.8 mg/dL (8.4-10.2) 05/10/22 09:39 Ferritin 921.1 ng/mL (30.0-300.0) H 05/11/22 04:00 Total Bilirubin 20.60 mg/dL (0.1-1.2) H 05/08/22 17:23 AST 21 units/L (5-40) 05/08/22 17:23 ALT < 5 units/L (7-56) L 05/08/22 17:23 Alkaline Phosphatase 110 units/L (35-129) 05/08/22 17:23 Troponin T < 0.010 ng/mL (0.00-0.029) 05/08/22 17:23 NT-Pro-B Natriuret Pep 5393 pg/mL (0-450) H 05/08/22 17:23 Total Protein 5.5 g/dL (6.3-8.2) L 05/08/22 17:23 Albumin 3.4 g/dL (3.9-5) L 05/08/22 17:23 Albumin/Globulin Ratio 1.6 % 05/08/22 17:23 Urine Creatinine 66.2 mg/dL (0.1-20.0) H 05/10/22 Unknown Urine Sodium 35 mmol/L 05/10/22 Unknown Urine Urea Nitrogen 671 05/10/22 Unknown SARS-CoV-2 (PCR) Positive (Negative) A 05/09/22 10:40 Microbiology: Microbiology 05/08/22 22:25 Peripheral/Venous Blood Culture - Preliminary NO GROWTH AFTER 48 HOURS 05/08/22 22:25 Peripheral/Venous Blood Culture - Preliminary NO GROWTH AFTER 48 HOURS Carvajal/IV: Voiding Method Urinal Active Medications - Current Medications Current Medications: Generic Name Dose Route Start Last Admin Trade Name Freq PRN Reason Stop Dose Admin Acetaminophen 650 mg 05/08/22 22:09 Acetaminophen 325 Mg Tab PO Q4H PRN Pain MILD(1-3)/Fever >100.5/PEREZ Atorvastatin Calcium 10 mg 05/09/22 22:00 05/10/22 21:17 Atorvastatin 10 Mg Tab PO 10 mg QHS SARAH Administration Calcium Carbonate/Glycine 500 mg 05/08/22 22:13 Calcium Carbonate 500 Mg Tab Chew PO Q4H PRN Indigestion Dexamethasone 6 mg 05/09/22 12:00 05/10/22 10:46 Dexamethasone 4 Mg Tab PO 6 mg Q24HR SARAH Administration Famotidine 20 mg 05/09/22 10:00 05/10/22 21:17 Famotidine 20 Mg Tab PO 20 mg BID SARAH Administration Heparin Sodium (Porcine) 3,600 unit 05/09/22 11:00 Heparin 10,000 Units/10 Ml Vial 40 unit/kg (3600 unit) IV Q6H PRN Anti-Xa Assay < 0.1 units/ml Ceftriaxone Sodium 2 gm in 100 mls @ 200 mls/hr 05/08/22 23:00 05/10/22 23:16 Rocephin/Ns 2 Gm/100 Ml IV 200 mls/hr Q24H SARAH Administration Protocol Vancomycin HCl 1,250 mg/ 275 mls @ 166.667 mls/hr 05/09/22 10:00 05/10/22 21:17 Sodium Chloride IV 166.667 mls/hr Q12H SARAH Administration Dobutamine HCl/Dextrose 500 mg in 250 mls @ 6.833 mls/hr 05/09/22 11:00 05/10 23:19 Dobutrex Drip 500mg/D5w 250ml IV 2.5 mcg/kg/min DIRECT SARAH 6.833 mls/hr Administration Protocol 2.5 MCG/KG/MIN Heparin Sodium/Sodium Chloride 25,000 unit in 500 mls @ 20 mls/hr 05/09/22 11:00 05/11/22 04:36 Heparin/ 0.45% Nacl-25,000 Unit/500 Ml IV 1,300 units/hr TITRATE SARAH 26 mls/hr Titration Protocol 1,000 UNITS/HR Midodrine 10 mg 05/09/22 08:00 05/10/22 15:25 Midodrine 10 Mg Tab PO 10 mg TID@0800,1200,1600 SARAH Administration Morphine Sulfate 2 mg 05/08/22 22:09 Morphine 2 Mg/1 Ml Inj IV Q4H PRN Pain, Moderate (4-6) Ondansetron HCl 4 mg 05/08/22 22:09 Ondansetron 4 Mg/2 Ml Inj IV Q8H PRN Nausea And Vomiting Sodium Chloride 10 ml 05/09/22 10:00 05/10/22 21:17 Sodium Chloride 0.9% 10 Ml Flush Syringe IV 10 ml BID SARAH Administration Sodium Chloride 10 ml 05/08/22 22:09 Sodium Chloride 0.9% 10 Ml Flush Syringe IV PRN PRN LINE FLUSH
[2022-05-11] MEDS: MIDODRINE 10 MG TAB PO SCH (09:48)
[2022-05-11] MEDS: FAMOTIDINE 20 MG TAB PO SCH ×2 (09:49→22:17)
[2022-05-11] MEDS: VANCOMYCIN 1,250 MG in SODIUM CHLORIDE 0.9% 250ML 250 ML IV SCH (09:49)
[2022-05-11] MEDS: DEXAMETHASONE 4 MG TAB PO SCH (09:49)
--- NOTE | 2022-05-11 10:55 | Progress Note ---
Assessment and Plan 46-year-old AA male with a complex medical hx outlined below who was recently admitted for sepsis/MSSA bacteremia and concern for bioprosthetic MV endocarditis. He was set up for transfer to [facility] but ultimately left AMA and drove himself there (admitted to [facility] on 04/23 for ADHF). A repeat workup, including TTE, PRATIMA, and cardiac CTA, was performed. Per the [facility], anteromedial MV leaflet thickening likely favored thrombus over vegetation. Pt was seen by ID @ [facility], who in light of pt's risk factors, citlaly mmended PICC for 6 weeks cefazolin 2g q8h irregardless, after which time a PRATIMA was to be performed for reassessment. Pt was started on Coumadin with heparin bridging for tx of possible thrombus but ultimately requested to leave [facility] AMA prior to therapeutic INR being achieved. He is admitted now with complaints of fatigue, fever/chills, and a cough productive of green sputum. He has been found to be COVID-positive. Cardiology has been consulted for chest pain. Pleuritic Chest Pain COVID-19 Infection ?Prosthetic MV Endocarditis ?MV Leaflet Thrombus HFrEF/NICMP (EF 10-15%, declined AICD in 2018 d/t lack of employment/insurance, undergoing outpatient EP workup for [employer]-D upgrade) Hypotension KAYLIN/?CKD Anemia PAFlutter (recently switched from Eliquis to Coumadin d/t concern for MV thrombosis & evidence of severe bioprosthetic MS) S/p DENVER Occlusion (11/2016) Severe Bioprosthetic MS H/o Severe MR s/p Bioprosthetic MV (11/2016) Severe TR S/p TV Repair/Ring Annuloplasty (11/2016) H/o CHB s/p PPM ([employer]) H/o HTN Hep C/Chronic Jaundice H/o EtOH Abuse H/o Tobacco Abuse Medical Non-Compliance Echo 05/09/2022-EF 20 to 25% severe global hypokinesis of left ventricle right ventricular systolic function mildly reduced. Pacemaker lead present in right ventricle. Right atrium is normal in size. Pacemaker lead present in the right atrium. Interatrial septum is intact without evidence of ASD or PFO. Prosthetic mitral valve is present. Prosthetic mitral valve is not well visualized due to imaging artifact from prosthesis. Moderate tricuspid regurgitation. Moderate pulmonary hypertension. Moderate pulmonic regurgitation. IVC is dilated and collapses with less than 50% with inspiration Cardiac CTA 04/27/2022: There is a 33 mm Mosaic valve in the mitral position with severe hypoattenuating leaflet thickening of the anteromedial leaflet. This could represent thrombus vs vegetation. There is a 32 mm MC3 tricuspid valve ring present. The left ventricle ventricle is dilated with severely reduced systolic function. Calculated LVEF 16% The right ventricle is severely dilated with severely reduced systolic function. Non-obstructive coronary atherosclerosis. PRATIMA 04/24/2022: Left ventricular ejection fraction is 25%. Severely decreased left ventricular ejection fraction. S/p 33 mm Mosaic MVR. There is mild valvular MR. The anteromedial leaflet is thickened and restricted consistent with leaflet thrombosis. Mean gradient 8-11 mmHg (at HR 90-110 BPM). 32 mm MC3 TV ring with a RV lead. There is severe tricuspid regurgitation, the leaflets were not well visualized. Mild aortic valve insufficiency. Severely enlarged right ventricular cavity size. Severely reduced right ventricular systolic function. The DENVER is ligated. Limited echo 04/13/2022-EF 10 to 15%. Severe global hypokinesis of left ventricle. Device is present in right atrium. Device lead is present in right ventricle. Right ventricle is moderately hypokinetic PRATIMA 04/14/2022-EF 10 to 15% severe global hypokinesis of left ventricle. No thrombus noted in LV. Right ventricle severely hypokinetic. Device lead is present in right ventricle. No vegetations. Device lead is present in right atrium. No vegetations no left atrial appendage with normal left pulmonary vein. Saline bubble study did not demonstrate PFO. Mitral valve vegetation is present on bioprosthetic mitral valve. Bioprosthetic mitral valve present. No tricuspid valve vegetations. No pulmonic valve vegetations. No aortic valvular vegetation. Echo 04/01/2022: EF 10 to 15%. Left ventricle is mildly dilated. Severe global hypokinesis of left ventricle. Left ventricular end-diastolic pressure is elevated. Right ventricle is dilated. Right ventricle is hypokinetic. Device lead is present in right ventricle. Left atrium is mildly dilated. Right atrium is dilated. Bioprosthetic mitral valve is present. Mild to moderate tricuspid regurgitation. RVSP 41mmHg. PRATIMA 04/14/2022: EF 10 to 15%, severe global hypokinesis of left ventricle. No t hrombus noted in LV. Right ventricle severely hypokinetic. Device lead is present in right ventricle, no vegetations. Device lead is present in right atrium, no vegetations. No left atrial appendage. Normal left pulmonary vein. Saline bubble study did not demonstrate PFO. Mitral valve vegetation is present on bioprosthetic mitral valve. Bioprosthetic mitral valve present. No tricuspid valve vegetation. No pulmonic valve vegetation. No aortic valvular vegetation. TTE 04/01/2022: EF 10 to 15%. Left ventricle is mildly dilated. Severe global hypokinesis of left ventricle. Left ventricular end-diastolic pressure is elevated. Right ventricle is dilated. Right ventricle is hypokinetic. Device lead is present in right ventricle. Left atrium is mildly dilated. Right atrium is dilated. Bioprosthetic mitral valve is present. Mild to moderate tricuspid regurgitation. RVSP 41mmHg. Lexiscan MPI Stress Test 10/2018: Negative for ischemia, EF 15% Plan: BP has been stable will stop dobutamine gtt at this time Decrease midordrine to 5mg PO TID Initiate Lasix 20mg PO BID Other GDMT for HF remains on hold at this time d/t hypoTSN. Continue IV heparin gtt. Will ultimately transition to Coumadin prior to discharge. Abx mgmt per Primary team/ID. Patient seen in conjunction with Dr. Holman who agrees with this plan of care - Patient Problems (1) COVID-19 Current Visit: Yes Status: Acute (2) Chronic hepatitis Current Visit: Yes Status: Acute (3) Thrombosis of mitral valve Current Visit: Yes Status: Acute (4) Cardiac pacemaker in situ Current Visit: Yes Status: Chronic (5) HFrEF (heart failure with reduced ejection fraction) Current Visit: Yes Status: Chronic (6) History of mitral valve replacement with bioprosthetic valve Current Visit: Yes Status: Chronic (7) History of tricuspid valve annuloplasty Current Visit: Yes Status: Chronic (8) Nonischemic cardiomyopathy Current Visit: Yes Status: Chronic (9) Acute on chronic HFrEF (heart failure with reduced ejection fraction) Current Visit: No Status: Acute (10) Ascites Current Visit: No Status: Acute (11) COVID-19 vaccination not done Current Visit: No Status: Acute (12) History of atrial fibrillation Current Visit: No Status: Acute (13) MRSA infection Current Visit: No Status: Acute (14) AICD (automatic cardioverter/defibrillator) present Current Visit: No Status: Chronic (15) Noncompliance with medication regimen Current Visit: No Status: Chronic Subjective Date of service: 05/11/22 Principal diagnosis: COVID-19, Bioprosthetic MV IE vs Thrombus, HFrEF Interval history: Patient resting in bed in no acute distress Paced 70s on monitor Objective Vital Signs Temp Pulse Pulse Resp BP Pulse Ox 05/11/22 08:00 70 19 138/84 94 05/11/22 07:30 71 18 139/88 95 05/11/22 07:29 97.8 F 05/11/22 07:00 71 10 L 140/90 96 05/11/22 06:30 72 22 131/89 98 05/11/22 06:00 71 22 142/100 05/11/22 05:30 72 16 144/95 96 05/11/22 05:00 72 21 134/89 97 05/11/22 04:30 70 23 144/93 96 05/11/22 04:00 72 19 137/97 97 05/11/22 03:45 98.8 F 05/11/22 03:30 69 16 133/91 98 05/11/22 03:00 70 19 142/89 95 05/11/22 02:30 71 22 134/90 96 05/11/22 02:00 76 20 134/85 98 05/11/22 01:30 78 15 134/95 99 05/11/22 01:00 77 13 140/96 98 05/11/22 00:30 73 12 128/89 99 05/11/22 00:00 71 14 99 05/10/22 23:59 97 05/10/22 23:58 73 13 100 05/10/22 23:52 97.6 F 05/10/22 23:10 85 20 98 05/10/22 23:00 81 18 125/74 99 05/10/22 22:59 76 20 125/74 98 05/10/22 22:30 85 14 125/74 98 05/10/22 22:00 79 18 125/74 98 05/10/22 21:30 82 9 L 131/89 100 05/10/22 21:00 88 18 130/82 05/10/22 20:30 72 17 130/82 99 05/10/22 20:11 96 05/10/22 20:00 97.4 F L 74 74 14 130/82 97 05/10/22 19:48 97.4 F L 05/10/22 19:30 78 14 149/104 99 05/10/22 19:00 76 18 149/104 99 05/10/22 18:30 149/99 99 05/10/22 18:00 149/99 05/10/22 17:30 144/98 98 05/10/22 17:00 144/98 98 05/10/22 16:30 114/66 99 05/10/22 16:00 97.7 F 76 76 14 137/95 97 05/10/22 15:30 114/66 99 05/10/22 15:00 114/66 97 05/10/22 14:30 88 15 121/76 95 05/10/22 14:00 73 16 121/76 98 05/10/22 13:30 71 17 133/88 98 05/10/22 13:00 69 20 133/88 97 05/10/22 12:41 97.7 F 05/10/22 12:30 72 17 134/83 97 05/10/22 12:00 68 68 18 134/83 97 05/10/22 11:30 68 14 120/75 99 05/10/22 11:00 66 20 120/75 97 - Physical Examination General: No Apparent Distress HEENT: Positive: EOMI, Normocephaly Neck: Positive: trachea midline. Negative: JVD/HJR Cardiac: Positive: Reg Rate and Rhythm Lungs: Positive: Normal Breath Sounds Neuro: Positive: Grossly Intact Abdomen: Positive: Soft. Negative: Tender Skin: Negative: Rash Musculoskeletal: No Pain Extremities: Present: warm. Absent: edema - Labs and Meds CBC 05/11/22 Range/Units 04:00 Hgb 8.8 L (11.8-15.2) gm/dl Hct 26.4 L (35.5-45.6) % Plt Count 272 (140-440) K/mm3 Comprehensive Metabolic Panel 05/10/22 Range/Units 09:39 Sodium 134 L (137-145) mmol/L Potassium 3.8 (3.6-5.0) mmol/L Chloride 97.1 L (98-107) mmol/L Carbon Dioxide 21 L (22-30) mmol/L BUN 45 H (9-20) mg/dL Creatinine 1.3 (0.8-1.3) mg/dL Glucose 129 H (75-100) mg/dL Calcium 8.8 (8.4-10.2) mg/dL - Imaging and Cardiology EKG: report reviewed, image reviewed Echo: report reviewed, other - Telemetry EKG Rhythm: Paced Pacemaker: ventricular pacing w/capt
--- NOTE | 2022-05-11 11:21 | Ultrasound Report ---
ULTRASOUND RENAL INDICATION / CLINICAL INFORMATION: jerardo. COMPARISON: None available. FINDINGS: RIGHT KIDNEY: Length = 12.7 cm. [normal > 9 cm] - Parenchymal Thickness = 1.2 cm. [normal > 1.5 cm] - Echogenicity: Normal. - Hydronephrosis: None. - Cyst or mass: No significant abnormality. - Stones: None seen. LEFT KIDNEY: Length = 12.3 cm. [normal > 9 cm] - Parenchymal Thickness = 1.4 cm. [normal > 1.5 cm] - Echogenicity: Normal. - Hydronephrosis: None. - Cyst or mass: No significant abnormality. - Stones: None seen. URINARY BLADDER: No significant abnormality. FREE FLUID: None. ADDITIONAL FINDINGS: None. IMPRESSION: No significant abnormality. Signer Name: Win Craig Jr, MD Signed: 05/11/2022 11:17 AM Workstation Name: [id number]
[2022-05-11] MEDS: FUROSEMIDE 20 MG TAB PO SCH ×2 (12:00→19:00)
--- NOTE | 2022-05-11 12:07 | Consultation ---
History of Present Illness - Reason for Consult Consult date: 05/11/22 endocarditis, COVID-19 Requesting physician: SARTHAK WILKINSON - History of Present Illness The patient is a 46-year-old male with nonischemic cardiomyopathy, low ejection fraction, indwelling cardiac pacemaker, valvular heart disease status post mitral valve regurgitation, tricuspid ring, recently hospitalized here in March 2022 with MSSA bacteremia and prosthetic valve endocarditis. He eventually left [facility] and went to [facility] while he was awaiting a bed there, was seen by ID and structural cardiology there, no surgical intervention was deemed necessary, he was set up with home IV antibiotics via a PICC line with possible plans for long-term oral suppression. He was readmitted to the hospital on 05/08/2022 with complaints of chest pain. Noted to be hypotensive on admission so started on dopamine drip. He is otherwise been afebrile. He is feeling better. Tested positive for COVID-19. Review of Systems: General: no fevers,chills or rigors HEENT: no new visual disturbance Respiratory: No cough, sputum, hemoptysis or shortness of breath Cardiovascular: No chest pain, syncope Gastrointestinal: No nausea, vomiting or diarrhea Genitourinary: No dysuria or hematuria Musculoskeletal: No new or worsening neck pain or back pain Neurologic: No headaches, seizures Hematologic: No easy bruising or bleeding Endocrine: No night sweats or acute weight loss Skin: negative for rash, jaundice Psychiatric: No suicidal or homicidal ideation Past History Past Medical History: atrial fib, heart failure, hepatitis, hypertension, liver disease, renal failure, other (valvular heart disease). denies: CAD Past Surgical History: Other (bioprosthetic MV, TV ring, PPM). denies: CABG, PTCA Social history: smoking, alcohol abuse Family history: hypertension Medications and Allergies Allergies Allergy/AdvReac Type Severity Reaction Status Date / Time No Known Allergies Allergy Verified 05/08/22 16:35 Home Medications Medication Instructions Recorded Confirmed Last Taken Type carvediloL [Coreg] 25 mg PO BID 30 Days #60 tablet 04/06/22 04/14/22 04/12/22 Rx Acetaminophen [Acetaminophen TAB] 650 mg PO Q4H PRN tablet 04/14/22 Unknown Rx Apixaban [Eliquis] 5 mg PO BID tablet 04/14/22 Unknown Rx AtorvaSTATin 10 mg PO QHS tablet 04/14/22 Unknown Rx Benzocaine 20% Topical [place] 3 spray MM PREOP packet 04/14/22 Unknown Rx [Hurricaine One 20% Topical [place]] Calcium Carbonate [Tums 500MG CHEW] 500 mg PO Q4H PRN tablet 04/14/22 Unknown Rx Midodrine [Proamatine] 10 mg PO TID@0800,1200,1600 tablet 04/14/22 Unknown Rx Sennosides/Docusate [Senokot S] 1 tab PO QHS tablet 04/14/22 Unknown Rx oxyCODONE /ACETAMINOPHEN [Percocet 1 tab PO Q4H PRN tablet 04/14/22 Unknown Rx 5/325 mg] Active Meds: Active Medications Acetaminophen (Acetaminophen 325 Mg Tab) 650 mg PO Q4H PRN PRN Reason: Pain MILD(1-3)/Fever >100.5/PEREZ Atorvastatin Calcium (Atorvastatin 10 Mg Tab) 10 mg PO QHS SARAH Last Admin: 05/10/22 21:17 Dose: 10 mg Calcium Carbonate/Glycine (Calcium Carbonate 500 Mg Tab Chew) 500 mg PO Q4H PRN PRN Reason: Indigestion Famotidine (Famotidine 20 Mg Tab) 20 mg PO BID SARAH Last Admin: 05/11/22 09:49 Dose: 20 mg Furosemide (Furosemide 20 Mg Tab) 20 mg PO 0600,1800 [facility] Heparin Sodium/Sodium Chloride (Heparin/ 0.45% Nacl-25,000 Unit/500 Ml) 25,000 unit in 500 mls @ 20 mls/hr IV TITRATE SARAH; Protocol Last Titration: 05/11/22 04:36 Dose: 1,300 units/hr, 26 mls/hr Cefazolin Sodium 2 gm/ Sodium (Chloride) 100 mls @ 200 mls/hr IV Q8H SARAH; Pr otocol Remdesivir 200 mg/ Sodium (Chloride) 250 mls @ 500 mls/hr IV ONCE ONE Stop: 05/11/22 12:32 Remdesivir 100 mg/ Sodium (Chloride) 250 mls @ 500 mls/hr IV Q24HR@1400 SARAH Stop: 05/13/22 14:29 Midodrine (Midodrine 5 Mg Tab) 5 mg PO TID@0800,1200,1600 SARAH Morphine Sulfate (Morphine 2 Mg/1 Ml Inj) 2 mg IV Q4H PRN PRN Reason: Pain, Moderate (4-6) Ondansetron HCl (Ondansetron 4 Mg/2 Ml Inj) 4 mg IV Q8H PRN PRN Reason: Nausea And Vomiting Sodium Chloride (Sodium Chloride 0.9% 10 Ml Flush Syringe) 10 ml IV BID [facility] Last Admin: 05/11/22 09:49 Dose: 10 ml Sodium Chloride (Sodium Chloride 0.9% 10 Ml Flush Syringe) 10 ml IV PRN PRN PRN Reason: LINE FLUSH Sodium Chloride (Sodium Chloride 0.9% 50 Ml Ivpb) 50 ml IV Q24HR@1400 [facility] Stop: 05/15/22 14:01 Physical Examination - Physical Exam Narrative exam: Physical Exam: Constitutional: Alert, cooperative. No acute distress Head, Ears, Nose: Normocephalic, atraumatic. External ears, nose normal Eyes: Conjunctivae/corneas clear. No icterus. No ptosis. Neck: Supple, no meningeal signs Oral: dentition fair, no thrush Cardiovascular: S1, S2 + Respiratory: Good air entry, clear to auscultation bilaterally GI: Soft, non-tender; bowel sounds normal. No peritoneal signs Musculoskeletal: No pedal edema, no cyanosis. Skin: No rash or abscess Hem/Lymphatic: No palpable cervical or supraclavicular nodes. No lymphangitis Psych: Mood ok. Affect normal Neurological: Awake, alert, oriented. No gross abnormality - Constitutional Vitals: Vital Signs Temp Pulse Resp BP Pulse Ox 97.9 F 70 15 133/96 97 05/11/22 11:48 05/11/22 11:00 05/11/22 11:00 05/11/22 11:00 05/11/22 11:00 Temperature -Last 24 Hours Temperature 97.9 F Temperature 97.8 F Temperature 98.8 F Temperature 97.6 F Temperature 97.4 F Temperature 97.4 F Temperature 97.7 F Temperature 97.7 F Results - Labs CBC & Chem 7: 05/11/22 04:00 05/10/22 09:39 Labs: Abnormal lab results 05/11/22 05/11/22 05/11/22 Range/Units 04:00 04:00 04:00 Hgb 8.8 L (11.8-15.2) gm/dl Hct 26.4 L (35.5-45.6) % D-Dimer 405.04 H (0-234) ng/mlDDU Heparin Anti-Xa Level 0.13 L (0.3-0.7) U.I./ml Ferritin 921.1 H (30.0-300.0) ng/mL 05/11/22 Range/Units Unknown Hgb (11.8-15.2) gm/dl Hct (35.5-45.6) % D-Dimer (0-234) ng/mlDDU Heparin Anti-Xa Level 0.10 L (0.3-0.7) U.I./ml Ferritin (30.0-300.0) ng/mL - Imaging and Cardiology Chest x-ray: report reviewed, image reviewed (no pneumonia) Assessment and Plan Cultures: 05/09/2022 COVID-19 PCR: Positive 05/08/2022 blood culture: No growth A/P: 46-year-old male with nonischemic cardiomyopathy, low ejection fraction, indwelling cardiac pacemaker, valvular heart disease status post mitral valve regurgitation, tricuspid ring, recently hospitalized here in March 2022 with MSSA bacteremia and prosthetic valve endocarditis. He eventually left [place] and went to [facility] while he was awaiting a bed there, was seen by ID and structural cardiology there, no surgical intervention was deemed necessary, he was set up with home IV antibiotics via a PICC line with possible plans for long-term oral suppression: #Prosthetic valve endocarditis secondary to MSSA bacteremia: During his recent hospitalization here, was treated with nafcillin, had completed 2 weeks of gentamicin per discussion with pharmacy. He was also getting rifampin. Now on monotherapy with IV Ancef as per ID at [place] to complete remainder of 6 weeks of therapy. #COVID-19: Currently on room air #Cardiomyopathy, indwelling pacemaker Recs: -Continue IV Ancef 2 g every 8 hours, complete remainder of 6 weeks as per ID at [place] -Due to high risk of disease progression with COVID-19, will order Remdesivir for 3 days -Already has PICC line in place. Case management orders placed for patient to resume IV Ancef upon discharge as per ID at [place]. Patient reports he has follow-up appointment with all his [place] physicians next month -Steroids discontinued, patient is on room air Avis Lott MD, FACP, [facility] O: [phone] F: [phone] C: [phone]
[2022-05-11 12:48] LABS: C-Reactive Protein 3.9 mg/dL (0.00-1.30)
[2022-05-11] MEDS: MIDODRINE 5 MG TAB PO SCH ×2 (12:57→15:35)
[2022-05-11] MEDS: HEPARIN/ 0.45% NACL DRIP 25,000 UNIT/500 ML BAG IV SCH (12:58)
[2022-05-11] MEDS ORDERED: REMDESIVIR 200 MG in SODIUM CHLORIDE 0.9% 250ML 250 ML IV SCH (13:00)
[2022-05-11] MEDS: SODIUM CHLORIDE 0.9% 50 ML IVPB IV SCH (14:00)
[2022-05-11 15:06] LABS: C-Reactive Protein 3.9 mg/dL (0.00-1.30)
[2022-05-11 20:42] LABS: Alanine Aminotransferase 5 units/L (7-56); Albumin 3.7 g/dL (3.9-5); BUN/Creatinine Ratio 28; Blood Urea Nitrogen 33 mg/dL (9-20); Calcium 8.9 mg/dL (8.4-10.2); Hemolysis Index 0
[2022-05-12] MEDS: HEPARIN/ 0.45% NACL DRIP 25,000 UNIT/500 ML BAG IV SCH (05:01)
[2022-05-12] MEDS: FUROSEMIDE 20 MG TAB PO SCH ×2 (05:01→17:16)
[2022-05-12 06:46] LABS: Hematocrit 24.9 % (35.5-45.6); Hemoglobin 8.4 gm/dl (11.8-15.2); Mean Corpuscular HGB Conc 34 % (32-34); Mean Corpuscular Volume 90 fl (84-94); Platelet Count 267 K/mm3 (140-440); Red Blood Count 2.77 M/mm3 (3.65-5.03)
[2022-05-12 06:48] LABS: Red Cell Distribution Width 23.9 % (13.2-15.2)
[2022-05-12 07:23] LABS: Alanine Aminotransferase 5 units/L (7-56); Albumin 3.5 g/dL (3.9-5); BUN/Creatinine Ratio 25; Blood Urea Nitrogen 33 mg/dL (9-20)
[2022-05-12 07:33] LABS: Calcium 8.8 mg/dL (8.4-10.2); Hemolysis Index 2
[2022-05-12 07:48] LABS: Band Neutrophils # (Manual) 0.1 K/mm3; Basophils % (Manual) 0 % (0.0-1.8); Eosinophils % (Manual) 0 % (0.0-4.3); Total Cells Counted 100
[2022-05-12 07:49] LABS: Anisocytosis 2+; Platelet Estimate Consistent w Auto; Poikilocytosis 1+; Target Cells 1+
[2022-05-12] MEDS: FAMOTIDINE 20 MG TAB PO SCH (11:00)
[2022-05-12] MEDS: MIDODRINE 5 MG TAB PO SCH (11:01)
--- NOTE | 2022-05-12 11:12 | Progress Note ---
Assessment and Plan Assessment and plan: This is a 46-year-old male with HFrEF/NICMP (EF 10-15%), chronic HCV infection, valvular heart disease s/p MVR, Chronic heart block s/p PPM (2016), AFlutter s/p ligation who presented to the emergency department on 05/08 with complaints of chest pain. Of note patient had a prolonged hospitalization for sepsis/MSSA bacteremia with presumed bioprosthetic MV endocarditis and eventually signed out AMA and went to [facility] where he was admitted with acute diastolic heart failure and was set up with antibiotics via PICC line with plans for repeat PRATIMA in 6 weeks eventually left AMA. Patient was admitted to the hospitalist service with consults to CCM and cardiology with acute on chronic heart failure and MRSA infection. Hospital course: 05/09: Patient tested positive for COVID-19, ID consulted, started on steroids. Remains on levophed. Started on dobutamine and midodrine. 05/10: Stable. renal function slight improved, Levophed off. Transfer to [facility] 05/11: D/w cardiology, plan to wean off dobutamine. patient MAP optimzied. Resume IV abx therapy initiated originally by [facility] ID physician for tx of endocarditis. Recommendation was for IV Ancef 2 g every 8 hours, total 6 weeks therapy. This was initiated on 04/27/2022 per [facility] records. Additionally, per ID, due to high risk of disease progression with COVID-19, they have ordered Remdesivir x 3 days. Once off dobutamine patient could potentially be txfr to tele bed. 05/12: Discussed with cardiology during my evaluation stop Midodrine per Cardiology, GI evaluation fro chronically elevated Tbili in the setting of SEPSIS. Transfer to [facility] due to noted covid positivity. Remdesivir PER ID day 2 of 3. Can transfer to the medical floor today and if remains stable from blood pressure standpoint anticipate discharge tomorrow. Patient aware of plan Assessment and plan: This is a 46-year-old male with HFrEF, s/p ppm, aflutter admitted with Sepsis Neuro: NAD -Reorientation as needed -Maintain sleep-wake cycle -As needed analgesia Cardiac: Hypotension, h/o HFrEF, NICMP (EF10-15%), valvular heart disease s/p MVR, chronic heart block s/p PPM, aflutter, S/p [place] Occlusion (11/2016), Severe Bioprosthetic MS, Severe TR -Cardiology consulted, appreciate recommendations -Blood pressure monitoring per protocol -s/p Vasopressor support with levophed -MAP goal greater than 65 -Dobutamine gtt, wean per cardiology guidance. -Midodrine TID -Echocardiogram LVEF 20-25%. severe global hypokinessis of LV. RV systolic function mildly reduced. IVC dilate. RVSP > 60 mmHg -pro BNP 5393 Respiratory: NAD -CCM consulted, appreciate recommendations -Supplemental oxygenation as needed -Pulmonary hygiene -SPO2 monitoring GI: h/o chronic HCV -24 hours -1438 ml -PPI -Cardiac diet - GB evaluation- Elevated Tbili : Acute Kidney Injury likely secondary to vasomotor nephropathy (resolved) -Monitor intake and output -Renally dose medications -Avoid nephrotoxic medications -FeNa prerenal but will hold off fluid in setting on HF and COVID -Renal ultrasound pending -Trend BMP ID: Covid 19 infection, History of endocarditis -Infectious disease consulted, appreciate recommendation - was worked up and treated for endocarditis at [facility] last month. -Antibiotic therapy with Ancef per ID 2 g q8hr IV x 6 weeks. Initial start date was 04/27/2022 per [facility] records. - Remdesivir x 3 day per ID recommendation - no indication for steroids as patient is on RA. -Contact and Droplet precautions -Trend COVID-19 inflammatory markers every 48 hours -f/u blood culture -Monitor WBC and temperature curve Endo: NAD -Avoid hypoglycemia Heme: NAD -Heparin gtt -Trend CBC -Transfuse hemoglobin less than 7 -SCDs to BLE while in bed The high probability of a clinically significant, sudden or life threatening deterioration of the [multi] system(s) required my full and direct attention, intervention and personal management. The aggregate critical care time was [35] minutes. This time is in addition to time spent performing reported procedures but includes the following: [x] Data Review and interpretation [x] Patient assessment and monitoring of vital signs [x] Documentation [x] Medication orders and management Disposition Plan: imcu Total Time Spent with Patient (Minutes): 60 History Interval history: Patient seen and examined this morning reports improvement not yet at baseline. Hospitalist Physical - Physical exam Narrative exam: - EENT Eyes: Present: PERRL, EOM intact ENT: hearing intact, clear oral mucosa, dentition normal - Neck Neck: Present: normal ROM - Respiratory Respiratory effort: normal Respiratory: bilateral: diminished - Cardiovascular Rhythm: regular Heart Sounds: Present: S1 & S2 - Extremities Extremities: no ischemia, pulses intact, pulses symmetrical Peripheral Pulses: within normal limits - Abdominal General gastrointestinal: soft, non-tender, non-distended, normal bowel sounds - Integumentary Integumentary: Present: warm, dry - Psychiatric Psychiatric: cooperative - Neurologic Neurologic: CNII-XII intact, no focal deficits, moves all extremities - Allied Health Allied health notes reviewed: nursing Sitting up during exam., Well-healed surgical Midline chest. - Constitutional Vitals: Temp Pulse Resp BP Pulse Ox 97.6 F 66 17 128/80 93 05/12/22 07:26 05/12/22 08:30 05/12/22 08:30 05/12/22 08:30 05/12/22 08:30 General appearance: Present: no acute distress HEART Score - HEART Score EKG: Non-specific Age: < 45 Risk factors: 1-2 risk factors Troponin: Troponin T < 0.010 ng/mL (0.00-0.029) 05/08/22 17:23 Troponin: < normal limit Results - Labs CBC & Chem 7: 05/12/22 06:04 05/12/22 06:04 Labs: Laboratory Last Values WBC 11.6 K/mm3 (4.5-11.0) H 05/12/22 06:04 RBC 2.77 M/mm3 (3.65-5.03) L 05/12/22 06:04 Hgb 8.4 gm/dl (11.8-15.2) L 05/12/22 06:04 Hct 24.9 % (35.5-45.6) L 05/12/22 06:04 MCV 90 fl (84-94) 05/12/22 06:04 MCH 31 pg (28-32) 05/12/22 06:04 MCHC 34 % (32-34) 05/12/22 06:04 RDW 23.9 % (13.2-15.2) H 05/12/22 06:04 Plt Count 267 K/mm3 (140-440) 05/12/22 06:04 [place] % (Auto) 14.0 % (0.0-7.3) H 05/09/22 04:55 Eos % (Auto) 1.3 % (0.0-4.3) 05/09/22 04:55 [place] # (Auto) 1.2 K/mm3 (0.0-0.8) H 05/09/22 04:55 Eos # (Auto) 0.1 K/mm3 (0.0-0.4) 05/09/22 04:55 Baso # (Auto) 0.1 K/mm3 (0.0-0.1) 05/09/22 04:55 Add Manual Diff Complete 05/12/22 06:04 Total Counted 100 05/12/22 06:04 Seg Neutrophils % 76.4 % (40.0-70.0) H 05/09/22 04:55 Seg Neuts % (Manual) 83.0 % (40.0-70.0) H 05/12/22 06:04 Band Neutrophils % 1.0 % 05/12/22 06:04 Lymphocytes % (Manual) 6.0 % (13.4-35.0) L 05/12/22 06:04 Reactive Lymphs % (Man) 0 % 05/12/22 06:04 Monocytes % (Manual) 8.0 % (0.0-7.3) H 05/12/22 06:04 Eosinophils % (Manual) 0 % (0.0-4.3) 05/12/22 06:04 Basophils % (Manual) 0 % (0.0-1.8) 05/12/22 06:04 Metamyelocytes % 2.0 % 05/12/22 06:04 Myelocytes % 0 % 05/12/22 06:04 Promyelocytes % 0 % 05/12/22 06:04 Blast Cells % 0 % 05/12/22 06:04 Nucleated RBC % Not Reportable 05/12/22 06:04 Seg Neutrophils # 6.4 K/mm3 (1.8-7.7) 05/09/22 04:55 Seg Neutrophils # Man 9.6 K/mm3 (1.8-7.7) H 05/12/22 06:04 Band Neutrophils # 0.1 K/mm3 05/12/22 06:04 Lymphocytes # (Manual) 0.7 K/mm3 (1.2-5.4) L 05/12/22 06:04 Abs React Lymphs (Man) 0.0 K/mm3 05/12/22 06:04 Monocytes # (Manual) 0.9 K/mm3 (0.0-0.8) H 05/12/22 06:04 Eosinophils # (Manual) 0.0 K/mm3 (0.0-0.4) 05/12/22 06:04 Basophils # (Manual) 0.0 K/mm3 (0.0-0.1) 05/12/22 06:04 Metamyelocytes # 0.2 K/mm3 05/12/22 06:04 Myelocytes # 0.0 K/mm3 05/12/22 06:04 Promyelocytes # 0.0 K/mm3 05/12/22 06:04 Blast Cells # 0.0 K/mm3 05/12/22 06:04 WBC Morphology Not Reportable 05/12/22 06:04 Hypersegmented Neuts Not Reportable 05/12/22 06:04 Hyposegmented Neuts Not Reportable 05/12/22 06:04 Hypogranular Neuts Not Reportable 05/12/22 06:04 Smudge Cells Not Reportable 05/12/22 06:04 Toxic Granulation Not Reportable 05/12/22 06:04 Toxic Vacuolation Not Reportable 05/12/22 06:04 Dohle Bodies Not Reportable 05/12/22 06:04 Pelger-Huet Anomaly Not Reportable 05/12/22 06:04 Gray Rods Not Reportable 05/12/22 06:04 Platelet Estimate Consistent w auto 05/12/22 06:04 Clumped Platelets Not Reportable 05/12/22 06:04 Plt Clumps, EDTA Not Reportable 05/12/22 06:04 Large Platelets Not Reportable 05/12/22 06:04 Giant Platelets Not Reportable 05/12/22 06:04 Platelet Satelliting Not Reportable 05/12/22 06:04 Plt Morphology Comment Not Reportable 05/12/22 06:04 RBC Morphology Not Reportable 05/12/22 06:04 Dimorphic RBCs Not Reportable 05/12/22 06:04 Polychromasia Not Reportable 05/12/22 06:04 Hypochromasia Not Reportable 05/12/22 06:04 Poikilocytosis 1+ 05/12/22 06:04 Anisocytosis 2+ 05/12/22 06:04 Microcytosis Not Reportable 05/12/22 06:04 Macrocytosis Not Reportable 05/12/22 06:04 Spherocytes Not Reportable 05/12/22 06:04 Pappenheimer Bodies Not Reportable 05/12/22 06:04 Sickle Cells Not Reportable 05/12/22 06:04 Target Cells 1+ 05/12/22 06:04 Tear Drop Cells Not Reportable 05/12/22 06:04 Ovalocytes Not Reportable 05/12/22 06:04 Helmet Cells Not Reportable 05/12/22 06:04 [place] Bodies Not Reportable 05/12/22 06:04 [place] Rings Not Reportable 05/12/22 06:04 Julio Cells Not Reportable 05/12/22 06:04 Bite Cells Not Reportable 05/12/22 06:04 Crenated Cell Not Reportable 05/12/22 06:04 Elliptocytes Not Reportable 05/12/22 06:04 Acanthocytes (Spur) Not Reportable 05/12/22 06:04 Rouleaux Not Reportable 05/12/22 06:04 Hemoglobin C Crystals Not Reportable 05/12/22 06:04 Schistocytes Not Reportable 05/12/22 06:04 Malaria parasites Not Reportable 05/12/22 06:04 [place] Bodies Not Reportable 05/12/22 06:04 Hem Pathologist Commnt No 05/12/22 06:04 PT 18.5 Sec. (12.2-14.9) H 05/09/22 12:36 INR 1.37 (0.87-1.13) H 05/09/22 12:36 APTT 37.7 Sec. (24.2-36.6) H 05/09/22 12:36 D-Dimer 405.04 ng/mlDDU (0-234) H 05/11/22 04:00 Heparin Anti-Xa Level 0.10 U.I./ml (0.3-0.7) L 05/11/22 Unknown Sodium 132 mmol/L (137-145) L 05/12/22 06:04 Potassium 3.8 mmol/L (3.6-5.0) 05/12/22 06:04 Chloride 99.2 mmol/L (98-107) 05/12/22 06:04 Carbon Dioxide 22 mmol/L (22-30) 05/12/22 06:04 Anion Gap 15 mmol/L 05/12/22 06:04 BUN 33 mg/dL (9-20) H 05/12/22 06:04 Creatinine 1.3 mg/dL (0.8-1.3) 05/12/22 06:04 Estimated GFR > 60 ml/min 05/12/22 06:04 BUN/Creatinine Ratio 25 % 05/12/22 06:04 Glucose 130 mg/dL (75-100) H 05/12/22 06:04 POC Glucose 104 mg/dL (70-105) 05/10/22 11:54 Calcium 8.8 mg/dL (8.4-10.2) 05/12/22 06:04 Ferritin 921.1 ng/mL (30.0-300.0) H 05/11/22 04:00 Total Bilirubin 16.10 mg/dL (0.1-1.2) H 05/12/22 06:04 AST 17 units/L (5-40) 05/12/22 06:04 ALT 5 units/L (7-56) L 05/12/22 06:04 Alkaline Phosphatase 97 units/L (35-129) 05/12/22 06:04 Lactate Dehydrogenase 247 units/L (91-180) H 05/11/22 04:00 Troponin T < 0.010 ng/mL (0.00-0.029) 05/08/22 17:23 C-Reactive Protein 3.90 mg/dL (0.00-1.30) H 05/11/22 04:00 NT-Pro-B Natriuret Pep 5393 pg/mL (0-450) H 05/08/22 17:23 Total Protein 5.5 g/dL (6.3-8.2) L 05/12/22 06:04 Albumin 3.5 g/dL (3.9-5) L 05/12/22 06:04 Albumin/Globulin Ratio 1.8 % 05/12/22 06:04 Procalcitonin 0.55 ng/mL (<0.15) 05/09/22 17:39 Urine Creatinine 66.2 mg/dL (0.1-20.0) H 05/10/22 Unknown Urine Sodium 35 mmol/L 05/10/22 Unknown Urine Urea Nitrogen 671 05/10/22 Unknown SARS-CoV-2 (PCR) Positive (Negative) A 05/09/22 10:40 Microbiology: Microbiology 05/08/22 22:25 Peripheral/Venous Blood Culture - Preliminary NO GROWTH AFTER 72 HOURS 05/08/22 22:25 Peripheral/Venous Blood Culture - Preliminary NO GROWTH AFTER 72 HOURS [place]vajal/IV: Voiding Method Urinal Active Medications - Current Medications Current Medications: Generic Name Dose Route Start Last Admin Trade Name Freq PRN Reason Stop Dose Admin Acetaminophen 650 mg 05/08/22 22:09 Acetaminophen 325 Mg Tab PO Q4H PRN Pain MILD(1-3)/Fever >100.5/PEREZ Atorvastatin Calcium 10 mg 05/09/22 22:00 05/11/22 22:17 Atorvastatin 10 Mg Tab PO 10 mg QHS SARAH Administration Calcium Carbonate/Glycine 500 mg 05/08/22 22:13 Calcium Carbonate 500 Mg Tab Chew PO Q4H PRN Indigestion Famotidine 20 mg 05/09/22 10:00 05/12/22 11:00 Famotidine 20 Mg Tab PO 20 mg BID SARAH Administration Furosemide 20 mg 05/11/22 11:00 05/12/22 05:01 Furosemide 20 Mg Tab PO 20 mg 0600,1800 SARAH Administration Heparin Sodium/Sodium Chloride 25,000 unit in 500 mls @ 20 mls/hr 05/09/22 11:00 05/12/22 05:01 Heparin/ 0.45% Nacl-25,000 Unit/500 Ml IV 1,400 units/hr TITRATE SARAH 28 mls/hr Administration Protocol 1,000 UNITS/HR Cefazolin Sodium 2 gm/ Sodium 100 mls @ 200 mls/hr 05/11/22 14:00 05/12/22 05:00 Chloride IV 200 mls/hr Q8H SARAH Administration Protocol Remdesivir 100 mg/ Sodium 250 mls @ 500 mls/hr 05/12/22 14:00 Chloride IV 05/13/22 14:29 Q24HR@1400 SARAH Midodrine 5 mg 05/11/22 12:00 05/12/22 11:01 Midodrine 5 Mg Tab PO 5 mg TID@0800,1200,1600 SARAH Administration Morphine Sulfate 2 mg 05/08/22 22:09 Morphine 2 Mg/1 Ml Inj IV Q4H PRN Pain, Moderate (4-6) Ondansetron HCl 4 mg 05/08/22 22:09 Ondansetron 4 Mg/2 Ml Inj IV Q8H PRN Nausea And Vomiting Sodium Chloride 10 ml 05/09/22 10:00 05/12/22 11:06 Sodium Chloride 0.9% 10 Ml Flush Syringe IV 10 ml BID SARAH Administration Sodium Chloride 10 ml 05/08/22 22:09 Sodium Chloride 0.9% 10 Ml Flush Syringe IV PRN PRN LINE FLUSH Sodium Chloride 50 ml 05/11/22 13:00 05/11/22 14:00 Sodium Chloride 0.9% 50 Ml Ivpb IV 05/13/22 14:01 50 ml Q24HR@1400 SARAH Administration
--- NOTE | 2022-05-12 11:31 | Progress Note ---
Assessment and Plan Cultures: 05/09/2022 COVID-19 PCR: Positive 05/08/2022 blood culture: No growth A/P: 46-year-old male with nonischemic cardiomyopathy, low ejection fraction, indwelling cardiac pacemaker, valvular heart disease status post mitral valve regurgitation, tricuspid ring, recently hospitalized here in March 2022 with MSSA bacteremia and prosthetic valve endocarditis. 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 He was also getting rifampin. Now on monotherapy with IV Ancef as per ID at [facility] to complete remainder of 6 weeks of therapy. #COVID-19: Currently on room air #Cardiomyopathy, indwelling pacemaker Recs: -Continue IV Ancef 2 g every 8 hours, complete remainder of 6 weeks as per ID at [facility] -Due to high risk of disease progression with COVID-19, on Remdesivir, D2 of 3 -Already has PICC line in place. Case management orders placed for patient to resume IV Ancef upon discharge as per ID at [facility]. Patient reports he has follow-up appointment with all his [facility] physicians next month -Steroids not needed, patient is on room air Will sign off. Please call with questions. Avis Lott MD, FACP, [facility] ([facility]) O: [phone] F: [phone] C: [phone] Subjective Date of service: 05/12/22 Principal diagnosis: COVID-19, Bioprosthetic MV IE vs Thrombus, HFrEF Interval history: No fever. Wants to go home. Remains on room air. Objective - Exam Narrative Exam: Physical Exam: Constitutional: Alert, cooperative. No acute distress Head, Ears, Nose: Normocephalic, atraumatic. External ears, nose normal Eyes: Conjunctivae/corneas clear. No icterus. No ptosis. Neck: Supple, no meningeal signs Cardiovascular: S1, S2 + murmur + Respiratory: Good air entry, clear to auscultation bilaterally GI: Soft, non-tender; bowel sounds normal. No peritoneal signs Musculoskeletal: No pedal edema, no cyanosis. Skin: No rash or abscess Hem/Lymphatic: No palpable cervical or supraclavicular nodes. No lymphangitis Psych: Mood ok. Affect normal Neurological: Awake, alert, oriented. No gross abnormality - Constitutional Vitals: Vital Signs Temp Pulse Resp BP Pulse Ox 97.6 F 66 17 128/80 93 05/12/22 07:26 05/12/22 08:30 05/12/22 08:30 05/12/22 08:30 05/12/22 08:30 Temperature -Last 24 Hours Temperature 97.6 F Temperature 98.3 F Temperature 97.4 F Temperature 97.8 F Temperature 97.9 F Temperature 97.9 F - Labs CBC & Chem 7: 05/12/22 06:04 05/12/22 06:04 Labs: Abnormal lab results 05/09/22 05/11/22 05/11/22 Range/Units 17:39 04:00 23:31 WBC (4.5-11.0) K/mm3 RBC (3.65-5.03) M/mm3 Hgb (11.8-15.2) gm/dl Hct (35.5-45.6) % RDW (13.2-15.2) % Seg Neuts % (Manual) (40.0-70.0) % Lymphocytes % (Manual) (13.4-35.0) % Monocytes % (Manual) (0.0-7.3) % Seg Neutrophils # Man (1.8-7.7) K/mm3 Lymphocytes # (Manual) (1.2-5.4) K/mm3 Monocytes # (Manual) (0.0-0.8) K/mm3 Heparin Anti-Xa Level 0.24 L (0.3-0.7) U.I./ml Sodium (137-145) mmol/L Carbon Dioxide (22-30) mmol/L BUN (9-20) mg/dL Glucose (75-100) mg/dL Total Bilirubin (0.1-1.2) mg/dL ALT (7-56) units/L Lactate Dehydrogenase 217 H 247 H (91-180) units/L C-Reactive Protein 3.90 H 3.90 H (0.00-1.30) mg/dL Total Protein (6.3-8.2) g/dL Albumin (3.9-5) g/dL 05/11/22 05/11/22 05/12/22 Range/Units Unknown Unknown 06:04 WBC (4.5-11.0) K/mm3 RBC (3.65-5.03) M/mm3 Hgb (11.8-15.2) gm/dl Hct (35.5-45.6) % RDW (13.2-15.2) % Seg Neuts % (Manual) (40.0-70.0) % Lymphocytes % (Manual) (13.4-35.0) % Monocytes % (Manual) (0.0-7.3) % Seg Neutrophils # Man (1.8-7.7) K/mm3 Lymphocytes # (Manual) (1.2-5.4) K/mm3 Monocytes # (Manual) (0.0-0.8) K/mm3 Heparin Anti-Xa Level 0.10 L (0.3-0.7) U.I./ml Sodium 136 L 132 L (137-145) mmol/L Carbon Dioxide 21 L (22-30) mmol/L BUN 33 H 33 H (9-20) mg/dL Glucose 156 H 130 H (75-100) mg/dL Total Bilirubin 19.10 H 16.10 H (0.1-1.2) mg/dL ALT 5 L 5 L (7-56) units/L Lactate Dehydrogenase (91-180) units/L C-Reactive Protein (0.00-1.30) mg/dL Total Protein 6.2 L 5.5 L (6.3-8.2) g/dL Albumin 3.7 L 3.5 L (3.9-5) g/dL 05/12/22 Range/Units 06:04 WBC 11.6 H (4.5-11.0) K/mm3 RBC 2.77 L (3.65-5.03) M/mm3 Hgb 8.4 L (11.8-15.2) gm/dl Hct 24.9 L (35.5-45.6) % RDW 23.9 H (13.2-15.2) % Seg Neuts % (Manual) 83.0 H (40.0-70.0) % Lymphocytes % (Manual) 6.0 L (13.4-35.0) % Monocytes % (Manual) 8.0 H (0.0-7.3) % Seg Neutrophils # Man 9.6 H (1.8-7.7) K/mm3 Lymphocytes # (Manual) 0.7 L (1.2-5.4) K/mm3 Monocytes # (Manual) 0.9 H (0.0-0.8) K/mm3 Heparin Anti-Xa Level (0.3-0.7) U.I./ml Sodium (137-145) mmol/L Carbon Dioxide (22-30) mmol/L BUN (9-20) mg/dL Glucose (75-100) mg/dL Total Bilirubin (0.1-1.2) mg/dL ALT (7-56) units/L Lactate Dehydrogenase (91-180) units/L C-Reactive Protein (0.00-1.30) mg/dL Total Protein (6.3-8.2) g/dL Albumin (3.9-5) g/dL
--- NOTE | 2022-05-12 12:41 | Progress Note ---
Assessment and Plan 46-year-old [place] male with a complex medical hx outlined below who was recently admitted for sepsis/MSSA bacteremia and concern for bioprosthetic MV endocarditis. He was set up for transfer to [facility] but ultimately left AMA and drove himself there (admitted to [facility] on 04/23 for ADHF). A repeat workup, including TTE, PRATIMA, and cardiac CTA, was performed. Per the [facility], anteromedial MV leaflet thickening likely favored thrombus over vegetation. Pt was seen by ID @ [facility], who in light of pt's risk factors, citlaly mmended PICC for 6 weeks cefazolin 2g q8h irregardless, after which time a PRATIMA was to be performed for reassessment. Pt was started on Coumadin with heparin bridging for tx of possible thrombus but ultimately requested to leave [facility] AMA prior to therapeutic INR being achieved. He is admitted now with complaints of fatigue, fever/chills, and a cough productive of green sputum. He has been found to be COVID-positive. Cardiology has been consulted for chest pain. Pleuritic Chest Pain COVID-19 Infection ?Prosthetic MV Endocarditis ?MV Leaflet Thrombus HFrEF/NICMP (EF 10-15%, declined AICD in 2018 d/t lack of employment/insurance, undergoing outpatient EP workup for [employer] upgrade) Hypotension KAYLIN/?CKD Anemia PAFlutter (recently switched from Eliquis to Coumadin d/t concern for MV thrombosis & evidence of severe bioprosthetic MS) S/p DENVER Occlusion (11/2016) Severe Bioprosthetic MS H/o Severe MR s/p Bioprosthetic MV (11/2016) Severe TR S/p TV Repair/Ring Annuloplasty (11/2016) H/o CHB s/p PPM ([employer]) H/o HTN Hep C/Chronic Jaundice H/o EtOH Abuse H/o Tobacco Abuse Medical Non-Compliance Echo 05/09/2022-EF 20 to 25% severe global hypokinesis of left ventricle right ventricular systolic function mildly reduced. Pacemaker lead present in right ventricle. Right atrium is normal in size. Pacemaker lead present in the right atrium. Interatrial septum is intact without evidence of ASD or PFO. Prosthetic mitral valve is present. Prosthetic mitral valve is not well visualized due to imaging artifact from prosthesis. Moderate tricuspid regurgitation. Moderate pulmonary hypertension. Moderate pulmonic regurgitation. IVC is dilated and collapses with less than 50% with inspiration Cardiac CTA 04/27/2022: There is a 33 mm Mosaic valve in the mitral position with severe hypoattenuating leaflet thickening of the anteromedial leaflet. This could represent thrombus vs vegetation. There is a 32 mm MC3 tricuspid valve ring present. The left ventricle ventricle is dilated with severely reduced systolic function. Calculated LVEF 16% The right ventricle is severely dilated with severely reduced systolic function. Non-obstructive coronary atherosclerosis. PRATIMA 04/24/2022: Left ventricular ejection fraction is 25%. Severely decreased left ventricular ejection fraction. S/p 33 mm Mosaic MVR. There is mild valvular MR. The anteromedial leaflet is thickened and restricted consistent with leaflet thrombosis. Mean gradient 8-11 mmHg (at HR 90-110 BPM). 32 mm MC3 TV ring with a RV lead. There is severe tricuspid regurgitation, the leaflets were not well visualized. Mild aortic valve insufficiency. Severely enlarged right ventricular cavity size. Severely reduced right ventricular systolic function. The DENVER is ligated. Limited echo 04/13/2022-EF 10 to 15%. Severe global hypokinesis of left ventricle. Device is present in right atrium. Device lead is present in right ventricle. Right ventricle is moderately hypokinetic PRATIMA 04/14/2022-EF 10 to 15% severe global hypokinesis of left ventricle. No thrombus noted in LV. Right ventricle severely hypokinetic. Device lead is present in right ventricle. No vegetations. Device lead is present in right atrium. No vegetations no left atrial appendage with normal left pulmonary vein. Saline bubble study did not demonstrate PFO. Mitral valve vegetation is present on bioprosthetic mitral valve. Bioprosthetic mitral valve present. No tricuspid valve vegetations. No pulmonic valve vegetations. No aortic valvular vegetation. Echo 04/01/2022: EF 10 to 15%. Left ventricle is mildly dilated. Severe global hypokinesis of left ventricle. Left ventricular end-diastolic pressure is elevated. Right ventricle is dilated. Right ventricle is hypokinetic. Device lead is present in right ventricle. Left atrium is mildly dilated. Right atrium is dilated. Bioprosthetic mitral valve is present. Mild to moderate tricuspid regurgitation. RVSP 41mmHg. PRATIMA 04/14/2022: EF 10 to 15%, severe global hypokinesis of left ventricle. No t hrombus noted in LV. Right ventricle severely hypokinetic. Device lead is present in right ventricle, no vegetations. Device lead is present in right atrium, no vegetations. No left atrial appendage. Normal left pulmonary vein. Saline bubble study did not demonstrate PFO. Mitral valve vegetation is present on bioprosthetic mitral valve. Bioprosthetic mitral valve present. No tricuspid valve vegetation. No pulmonic valve vegetation. No aortic valvular vegetation. TTE 04/01/2022: EF 10 to 15%. Left ventricle is mildly dilated. Severe global hypokinesis of left ventricle. Left ventricular end-diastolic pressure is elevated. Right ventricle is dilated. Right ventricle is hypokinetic. Device lead is present in right ventricle. Left atrium is mildly dilated. Right atrium is dilated. Bioprosthetic mitral valve is present. Mild to moderate tricuspid regurgitation. RVSP 41mmHg. Lexiscan MPI Stress Test 10/2018: Negative for ischemia, EF 15% Plan: BP stable will stop midordrine and monitor patient BP Continue Lasix 20mg PO BID Other GDMT for HF remains on hold at this time d/t hypoTSN. If BP remains stable will resume GDMT tomorrow Transition to lovenox and bridge to Coumadin for anticoagulation. Pharmacy to dose Coumadin Abx mgmt per Primary team/ID. Patient seen in conjunction with Dr. Way who agrees with this plan of care - Patient Problems (1) COVID-19 Current Visit: Yes Status: Acute (2) Chronic hepatitis Current Visit: Yes Status: Acute (3) Thrombosis of mitral valve Current Visit: Yes Status: Acute (4) Cardiac pacemaker in situ Current Visit: Yes Status: Chronic (5) HFrEF (heart failure with reduced ejection fraction) Current Visit: Yes Status: Chronic (6) History of mitral valve replacement with bioprosthetic valve Current Visit: Yes Status: Chronic (7) History of tricuspid valve annuloplasty Current Visit: Yes Status: Chronic (8) Nonischemic cardiomyopathy Current Visit: Yes Status: Chronic (9) Acute on chronic HFrEF (heart failure with reduced ejection fraction) Current Visit: No Status: Acute (10) Ascites Current Visit: No Status: Acute (11) COVID-19 vaccination not done Current Visit: No Status: Acute (12) History of atrial fibrillation Current Visit: No Status: Acute (13) MRSA infection Current Visit: No Status: Acute (14) AICD (automatic cardioverter/defibrillator) present Current Visit: No Status: Chronic (15) Noncompliance with medication regimen Current Visit: No Status: Chronic Subjective Date of service: 05/12/22 Principal diagnosis: COVID-19, Bioprosthetic MV IE vs Thrombus, HFrEF Interval history: Patient resting in bed in no acute distress Paced 70s on monitor Objective Vital Signs Temp Pulse Resp BP Pulse Ox 05/12/22 12:07 98.2 F 05/12/22 08:30 66 17 128/80 93 05/12/22 08:00 62 14 115/73 98 05/12/22 07:30 62 15 115/73 98 05/12/22 07:26 97.6 F 05/12/22 07:00 69 15 117/75 97 05/12/22 06:30 67 15 115/79 97 05/12/22 06:00 68 15 123/82 97 05/12/22 05:30 62 16 119/80 95 05/12/22 05:00 62 13 139/91 99 05/12/22 04:30 61 18 139/93 98 05/12/22 04:00 98.3 F 63 17 134/89 98 05/12/22 03:30 63 15 120/70 98 05/12/22 03:00 61 15 120/79 95 05/12/22 02:30 63 19 124/83 95 05/12/22 02:00 62 19 125/84 95 05/12/22 01:30 61 16 125/79 93 05/12/22 01:00 63 16 128/85 94 05/12/22 00:30 63 15 131/86 96 05/12/22 00:00 97.4 F L 65 19 132/92 05/11/22 23:49 98 05/11/22 23:48 73 19 121/73 99 05/11/22 23:30 78 12 121/73 98 05/11/22 23:00 71 20 125/82 98 05/11/22 22:30 65 17 122/82 99 05/11/22 22:00 64 9 L 120/79 98 05/11/22 21:30 65 17 124/80 99 05/11/22 21:00 65 23 121/85 95 05/11/22 20:30 69 21 125/84 100 05/11/22 20:00 97.8 F 66 15 125/87 99 05/11/22 19:30 80 10 L 129/88 100 05/11/22 19:00 71 17 126/86 100 05/11/22 18:30 66 20 135/90 100 05/11/22 18:00 64 17 132/79 100 05/11/22 17:30 64 13 130/85 100 05/11/22 17:00 66 18 125/85 100 05/11/22 16:30 65 19 131/89 05/11/22 16:00 97.9 F 78 18 129/84 98 05/11/22 15:30 74 22 137/88 97 05/11/22 15:00 77 21 143/93 95 05/11/22 14:30 72 21 145/88 93 05/11/22 14:00 73 21 141/90 97 05/11/22 13:30 71 20 137/89 97 05/11/22 13:00 69 20 142/89 100 - Physical Examination General: No Apparent Distress HEENT: Positive: EOMI, Normocephaly Neck: Positive: trachea midline. Negative: JVD/HJR Cardiac: Positive: Reg Rate and Rhythm Lungs: Positive: Normal Breath Sounds Neuro: Positive: Grossly Intact Abdomen: Positive: Soft. Negative: Tender Skin: Negative: Rash Musculoskeletal: No Pain Extremities: Present: warm. Absent: edema - Labs and Meds Cardiac Enzymes 05/09/22 05/11/22 05/12/22 Range/Units 17:39 Unknown 06:04 AST 21 17 (5-40) units/L Lactate Dehydrogenase 217 H (91-180) units/L CBC 05/12/22 Range/Units 06:04 WBC 11.6 H (4.5-11.0) K/mm3 RBC 2.77 L (3.65-5.03) M/mm3 Hgb 8.4 L (11.8-15.2) gm/dl Hct 24.9 L (35.5-45.6) % Plt Count 267 (140-440) K/mm3 Comprehensive Metabolic Panel 05/11/22 05/12/22 Range/Units Unknown 06:04 Sodium 136 L 132 L (137-145) mmol/L Potassium 4.0 3.8 (3.6-5.0) mmol/L Chloride 101.6 99.2 (98-107) mmol/L Carbon Dioxide 21 L 22 (22-30) mmol/L BUN 33 H 33 H (9-20) mg/dL Creatinine 1.2 1.3 (0.8-1.3) mg/dL Glucose 156 H 130 H (75-100) mg/dL Calcium 8.9 8.8 (8.4-10.2) mg/dL AST 21 17 (5-40) units/L ALT 5 L 5 L (7-56) units/L Alkaline Phosphatase 113 97 (35-129) units/L Total Protein 6.2 L 5.5 L (6.3-8.2) g/dL Albumin 3.7 L 3.5 L (3.9-5) g/dL - Imaging and Cardiology EKG: report reviewed, image reviewed Echo: report reviewed, other - Telemetry EKG Rhythm: Paced Pacemaker: ventricular pacing w/capt
[2022-05-12] MEDS: SODIUM CHLORIDE 0.9% 50 ML IVPB IV SCH (15:01)
[2022-05-12] MEDS: ENOXAPARIN 100 MG/1 ML INJ SUB-Q SCH ×2 (15:01→22:16)
[2022-05-12] MEDS: REMDESIVIR 100 MG in SODIUM CHLORIDE 0.9% 250ML 250 ML IV SCH (15:02)
[2022-05-12 15:45] LABS: INR 1.08 (0.87-1.13)
[2022-05-12] MEDS ORDERED: WARFARIN 5 MG TAB PO NR (17:00)
--- NOTE | 2022-05-12 18:19 | Gastroenterology Consultation ---
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 He has chronic hyperbilirubinemia, for several years, presumed from severe cardiac dysfunction. He has been more jaundiced than usual this admit. In addition, he has had mild anemia this admit, with an elevated LDH. He has no itching or AMS. She has not had a liver biopsy, and hepatitis serologies have been negative. He cardiac function remains severely depressed. He does have ABLA, and is noted to have an elevated LDH. Past History Past Medical History: atrial fib, heart failure, hepatitis, hypertension, liver disease, renal failure, other (valvular heart disease). denies: CAD Past Surgical History: Other (bioprosthetic MV, TV ring, PPM). denies: CABG, PTCA Social history: smoking, alcohol abuse Family history: hypertension Medications and Allergies Allergies Allergy/AdvReac Type Severity Reaction Status Date / Time No Known Allergies Allergy Verified 05/08/22 16:35 Home Medications Medication Instructions Recorded Confirmed Last Taken Type carvediloL [Coreg] 25 mg PO BID 30 Days #60 tablet 04/06/22 04/14/22 04/12/22 Rx Acetaminophen [Acetaminophen TAB] 650 mg PO Q4H PRN tablet 04/14/22 Unknown Rx Apixaban [Eliquis] 5 mg PO BID tablet 04/14/22 Unknown Rx AtorvaSTATin 10 mg PO QHS tablet 04/14/22 Unknown Rx Benzocaine 20% Topical [place] 3 spray MM PREOP packet 04/14/22 Unknown Rx [Hurricaine One 20% Topical [place]] Calcium Carbonate [Tums 500MG CHEW] 500 mg PO Q4H PRN tablet 04/14/22 Unknown Rx Midodrine [Proamatine] 10 mg PO TID@0800,1200,1600 tablet 04/14/22 Unknown Rx Sennosides/Docusate [Senokot S] 1 tab PO QHS tablet 04/14/22 Unknown Rx oxyCODONE /ACETAMINOPHEN [Percocet 1 tab PO Q4H PRN tablet 04/14/22 Unknown Rx 5/325 mg] Active Meds: Active Medications Acetaminophen (Acetaminophen 325 Mg Tab) 650 mg PO Q4H PRN PRN Reason: Pain MILD(1-3)/Fever >100.5/PEREZ Atorvastatin Calcium (Atorvastatin 10 Mg Tab) 10 mg PO QHS [facility] Last Admin: 05/11/22 22:17 Dose: 10 mg Calcium Carbonate/Glycine (Calcium Carbonate 500 Mg Tab Chew) 500 mg PO Q4H PRN PRN Reason: Indigestion Enoxaparin Sodium (Enoxaparin 100 Mg/1 Ml Inj) 90 mg SUB-Q Q12HR [facility]; Protocol Last Admin: 05/12/22 15:01 Dose: 90 mg Famotidine (Famotidine 20 Mg Tab) 20 mg PO BID [facility] Last Admin: 05/12/22 11:00 Dose: 20 mg Furosemide (Furosemide 20 Mg Tab) 20 mg PO 0600,1800 [facility] Last Admin: 05/12/22 17:16 Dose: 20 mg Cefazolin Sodium 2 gm/ Sodium (Chloride) 100 mls @ 200 mls/hr IV Q8H [facility]; Protocol Stop: 06/08/22 13:59 Last Admin: 05/12/22 15:05 Dose: 200 mls/hr Remdesivir 100 mg/ Sodium (Chloride) 250 mls @ 500 mls/hr IV Q24HR@1400 [facility] Stop: 05/13/22 14:29 Last Admin: 05/12/22 15:02 Dose: 500 mls/hr Morphine Sulfate (Morphine 2 Mg/1 Ml Inj) 2 mg IV Q4H PRN PRN Reason: Pain, Moderate (4-6) Ondansetron HCl (Ondansetron 4 Mg/2 Ml Inj) 4 mg IV Q8H PRN PRN Reason: Nausea And Vomiting Sodium Chloride (Sodium Chloride 0.9% 10 Ml Flush Syringe) 10 ml IV BID [facility] Last Admin: 05/12/22 11:06 Dose: 10 ml Sodium Chloride (Sodium Chloride 0.9% 10 Ml Flush Syringe) 10 ml IV PRN PRN PRN Reason: LINE FLUSH Sodium Chloride (Sodium Chloride 0.9% 50 Ml Ivpb) 50 ml IV Q24HR@1400 [facility] Stop: 05/13/22 14:01 Last Admin: 05/12/22 15:01 Dose: 50 ml Warfarin Sodium (Warfarin 5 Mg Tab) 5 mg PO DAILY@1700 NR Stop: 05/13/22 16:59 Last Admin: 05/12/22 17:17 Dose: 5 mg I have reviewed and reconciled medications. Review of Systems - Review of Systems All systems: negative (as noted in the HPI) Exam - Constitutional Vital Signs: Temp Pulse Resp BP Pulse Ox 98.3 F 63 11 L 118/82 100 05/12/22 17:06 05/12/22 17:00 05/12/22 17:00 05/12/22 17:00 05/12/22 17:00 General appearance: no acute distress - EENT Eyes: PERRL, scleral icterus ENT: hearing intact, clear oral mucosa - Neck Neck: supple, normal ROM - Respiratory Respiratory effort: normal Respiratory: bilateral: CTA - Cardiovascular Rhythm: regular Heart Sounds: Present: S1 & S2 Extremities: no ischemia, No edema - Gastrointestinal General gastrointestinal: Present: soft, non-tender, non-distended - Integumentary Integumentary: Present: clear, warm, dry - Neurologic Neurological: alert and oriented x3 - Psychiatric Psychiatric: appropriate mood/affect - Labs CBC & Chem 7: 05/12/22 06:04 05/12/22 06:04 Lab Results: Laboratory Results - last 24 hr 05/11/22 05/11/22 05/12/22 23:31 Unknown 06:04 WBC RBC Hgb Hct MCV MCH MCHC RDW Plt Count Add Manual Diff Total Counted Seg Neuts % (Manual) Band Neutrophils % Lymphocytes % (Manual) Reactive Lymphs % (Man) Monocytes % (Manual) Eosinophils % (Manual) Basophils % (Manual) Metamyelocytes % Myelocytes % Promyelocytes % Blast Cells % Nucleated RBC % Seg Neutrophils # Man Band Neutrophils # Lymphocytes # (Manual) Abs React Lymphs (Man) Monocytes # (Manual) Eosinophils # (Manual) Basophils # (Manual) Metamyelocytes # Myelocytes # Promyelocytes # Blast Cells # WBC Morphology Hypersegmented Neuts Hyposegmented Neuts Hypogranular Neuts Smudge Cells Toxic Granulation Toxic Vacuolation Dohle Bodies Pelger-Huet Anomaly Gray Rods Platelet Estimate Clumped Platelets Plt Clumps, EDTA Large Platelets Giant Platelets Platelet Satelliting Plt Morphology Comment RBC Morphology Dimorphic RBCs Polychromasia Hypochromasia Poikilocytosis Anisocytosis Microcytosis Macrocytosis Spherocytes Pappenheimer Bodies Sickle Cells Target Cells Tear Drop Cells Ovalocytes Helmet Cells [place] Bodies [place] Cells Bite Cells Crenated Cell Elliptocytes Acanthocytes (Spur) Rouleaux Hemoglobin C Crystals Schistocytes Malaria parasites Shubham Bodies Hem Pathologist Commnt PT INR Heparin Anti-Xa Level 0.24 L Sodium 136 L 132 L Potassium 4.0 3.8 Chloride 101.6 99.2 Carbon Dioxide 21 L 22 Anion Gap 17 15 BUN 33 H 33 H Creatinine 1.2 1.3 Estimated GFR > 60 > 60 BUN/Creatinine Ratio 28 25 Glucose 156 H 130 H Calcium 8.9 8.8 Total Bilirubin 19.10 H 16.10 H AST 21 17 ALT 5 L 5 L Alkaline Phosphatase 113 97 Total Protein 6.2 L 5.5 L Albumin 3.7 L 3.5 L Albumin/Globulin Ratio 1.5 1.8 05/12/22 05/12/22 06:04 15:21 WBC 11.6 H RBC 2.77 L Hgb 8.4 L Hct 24.9 L MCV 90 MCH 31 MCHC 34 RDW 23.9 H Plt Count 267 Add Manual Diff Complete Total Counted 100 Seg Neuts % (Manual) 83.0 H Band Neutrophils % 1.0 Lymphocytes % (Manual) 6.0 L Reactive Lymphs % (Man) 0 Monocytes % (Manual) 8.0 H Eosinophils % (Manual) 0 Basophils % (Manual) 0 Metamyelocytes % 2.0 Myelocytes % 0 Promyelocytes % 0 Blast Cells % 0 Nucleated RBC % Not Reportable Seg Neutrophils # Man 9.6 H Band Neutrophils # 0.1 Lymphocytes # (Manual) 0.7 L Abs React Lymphs (Man) 0.0 Monocytes # (Manual) 0.9 H Eosinophils # (Manual) 0.0 Basophils # (Manual) 0.0 Metamyelocytes # 0.2 Myelocytes # 0.0 Promyelocytes # 0.0 Blast Cells # 0.0 WBC Morphology Not Reportable Hypersegmented Neuts Not Reportable Hyposegmented Neuts Not Reportable Hypogranular Neuts Not Reportable Smudge Cells Not Reportable Toxic Granulation Not Reportable Toxic Vacuolation Not Reportable Dohle Bodies Not Reportable Pelger-Huet Anomaly Not Reportable Gray Rods Not Reportable Platelet Estimate Consistent w auto Clumped Platelets Not Reportable Plt Clumps, EDTA Not Reportable Large Platelets Not Reportable Giant Platelets Not Reportable Platelet Satelliting Not Reportable Plt Morphology Comment Not Reportable RBC Morphology Not Reportable Dimorphic RBCs Not Reportable Polychromasia Not Reportable Hypochromasia Not Reportable Poikilocytosis 1+ Anisocytosis 2+ Microcytosis Not Reportable Macrocytosis Not Reportable Spherocytes Not Reportable Pappenheimer Bodies Not Reportable Sickle Cells Not Reportable Target Cells 1+ Tear Drop Cells Not Reportable Ovalocytes Not Reportable Helmet Cells Not Reportable [place] Bodies Not Reportable [place] Rings Not Reportable [place] Cells Not Reportable Bite Cells Not Reportable Crenated Cell Not Reportable Elliptocytes Not Reportable Acanthocytes (Spur) Not Reportable Rouleaux Not Reportable Hemoglobin C Crystals Not Reportable Schistocytes Not Reportable Malaria parasites Not Reportable Shubham Bodies Not Reportable Hem Pathologist Commnt No PT 15.2 H INR 1.08 Heparin Anti-Xa Level Sodium Potassium Chloride Carbon Dioxide Anion Gap BUN Creatinine Estimated GFR BUN/Creatinine Ratio Glucose Calcium Total Bilirubin AST ALT Alkaline Phosphatase Total Protein Albumin Albumin/Globulin Ratio Assessment and Plan - Patient Problems (1) Hyperbilirubinemia Current Visit: Yes Status: Acute Plan to address problem: - The patient's LFTs are stable (slightly improving today), and he has multiple reasons for acute exacerbation of chronic problem (COVID, bacteremia/sepsis, new antibiotics, significant cardiac disease). - Since labs are stable, and imaging shows no liver abscess, would not pursue further as an inpatient. - Recommend follow up with [facility] given severe underlying cardiomyopathy and complex comorbids. - We will sign off; please call if needed. (2) ABLA (acute blood loss anemia) Current Visit: Yes Status: Acute Plan to address problem: - No melena or hematemesis to suggest acute GI bleed. - Given elevated LDH, he may have hemolysis from his endocarditis. - Recommend protonix daily therapy; consider EGD/colon only if significant hemorrhage given unstable cardiac disease.
--- NOTE | 2022-05-12 20:13 | Consultation ---
History of Present Illness - Reason for Consult Consult date: 05/12/22 acute renal failure - History of Present Illness This is a 46-year-old man with history of heartburn use ejection fraction with EF 10-15%, valvular heart disease status post MVR, heart block status post PPM and Dr. status post ligation who presented with fevers and chills. He was recently being treated for bacterial endocarditis he was therefore transferred to [facility] but ended up leaving AMA and driving to . He was then admitted to [facility] where he was seen by ID and structural cardiology who deemed no intervention necessary at the time. He was set up with home IV antibiotics and was elevating achievement of therapeutic intake coagulation prior to discharge but ended up leaving AMA. He now presents with chest pain. His stay was complicated with acute kidney injury and nephrology was consulted for further management Past History Past Medical History: atrial fib, heart failure, hepatitis, hypertension, liver disease, renal failure, other (valvular heart disease). denies: CAD Past Surgical History: Other (bioprosthetic MV, TV ring, PPM). denies: CABG, PTCA Social history: smoking, alcohol abuse Family history: hypertension Medications and Allergies Allergies Allergy/AdvReac Type Severity Reaction Status Date / Time No Known Allergies Allergy Verified 05/08/22 16:35 Home Medications Medication Instructions Recorded Confirmed Last Taken Type carvediloL [Coreg] 25 mg PO BID 30 Days #60 tablet 04/06/22 04/14/22 04/12/22 Rx Acetaminophen [Acetaminophen TAB] 650 mg PO Q4H PRN tablet 04/14/22 Unknown Rx Apixaban [Eliquis] 5 mg PO BID tablet 04/14/22 Unknown Rx AtorvaSTATin 10 mg PO QHS tablet 04/14/22 Unknown Rx Benzocaine 20% Topical [place] 3 spray MM PREOP packet 04/14/22 Unknown Rx [Hurricaine One 20% Topical [place]] Calcium Carbonate [Tums 500MG CHEW] 500 mg PO Q4H PRN tablet 04/14/22 Unknown Rx Midodrine [Proamatine] 10 mg PO TID@0800,1200,1600 tablet 04/14/22 Unknown Rx Sennosides/Docusate [Senokot S] 1 tab PO QHS tablet 04/14/22 Unknown Rx oxyCODONE /ACETAMINOPHEN [Percocet 1 tab PO Q4H PRN tablet 04/14/22 Unknown Rx 5/325 mg] Active Meds: Active Medications Acetaminophen (Acetaminophen 325 Mg Tab) 650 mg PO Q4H PRN PRN Reason: Pain MILD(1-3)/Fever >100.5/PEREZ Atorvastatin Calcium (Atorvastatin 10 Mg Tab) 10 mg PO QHS [facility] Last Admin: 05/11/22 22:17 Dose: 10 mg Calcium Carbonate/Glycine (Calcium Carbonate 500 Mg Tab Chew) 500 mg PO Q4H PRN PRN Reason: Indigestion Enoxaparin Sodium (Enoxaparin 100 Mg/1 Ml Inj) 90 mg SUB-Q Q12HR [facility]; Protocol Last Admin: 05/12/22 15:01 Dose: 90 mg Furosemide (Furosemide 20 Mg Tab) 20 mg PO 0600,1800 [facility] Last Admin: 05/12/22 17:16 Dose: 20 mg Cefazolin Sodium 2 gm/ Sodium (Chloride) 100 mls @ 200 mls/hr IV Q8H [facility]; Protocol Stop: 06/08/22 13:59 Last Admin: 05/12/22 15:05 Dose: 200 mls/hr Remdesivir 100 mg/ Sodium (Chloride) 250 mls @ 500 mls/hr IV Q24HR@1400 [facility] Stop: 05/13/22 14:29 Last Admin: 05/12/22 15:02 Dose: 500 mls/hr Morphine Sulfate (Morphine 2 Mg/1 Ml Inj) 2 mg IV Q4H PRN PRN Reason: Pain, Moderate (4-6) Ondansetron HCl (Ondansetron 4 Mg/2 Ml Inj) 4 mg IV Q8H PRN PRN Reason: Nausea And Vomiting Pantoprazole Sodium (Pantoprazole 40 Mg Tab) 40 mg PO QDAC [facility] Sodium Chloride (Sodium Chloride 0.9% 10 Ml Flush Syringe) 10 ml IV BID [facility] Last Admin: 05/12/22 11:06 Dose: 10 ml Sodium Chloride (Sodium Chloride 0.9% 10 Ml Flush Syringe) 10 ml IV PRN PRN PRN Reason: LINE FLUSH Sodium Chloride (Sodium Chloride 0.9% 50 Ml Ivpb) 50 ml IV Q24HR@1400 [facility] Stop: 05/13/22 14:01 Last Admin: 05/12/22 15:01 Dose: 50 ml Warfarin Sodium (Warfarin 5 Mg Tab) 5 mg PO DAILY@1700 NR Stop: 05/13/22 16:59 Last Admin: 05/12/22 17:17 Dose: 5 mg Review of Systems Cardiovascular: chest pain, lightheadedness Exam - Vital Signs Vital signs: Vital Signs Temp Pulse Resp BP Pulse Ox 99.2 F 87 14 80/40 99 05/08/22 16:32 05/08/22 16:32 05/08/22 16:32 05/08/22 16:32 05/08/22 16:32 - Physical Exam Narrative exam: General: No acute distress HEENT: Oral mucosa moist Neck: Supple, no JVD Chest: Clear to auscultation bilaterally Heart: RRR, S1 and S2, no pericardial rub Abdomen: Soft, nontender, no renal bruit Extremity: No peripheral cyanosis, edema Neurological: Alert, awake, no asterixis Dermatology: No skin rash Psych: No agitation Musculoskeletal: No joint effusion Results - Lab Results 05/12/22 06:04 05/12/22 06:04 Most recent lab results Calcium 8.8 mg/dL (8.4-10.2) 05/12/22 06:04 Urine Creatinine 66.2 mg/dL (0.1-20.0) H 05/10/22 Unknown Urine Sodium 35 mmol/L 05/10/22 Unknown Assessment and Plan Acute kidney injury, creatinine peaked at 1.7, now 1.3. Renal ultrasound unremarkable. Prosthetic MV Endocarditis Hypokalemia, now resolved Hyponatremia Valvular dysfunction status post MVR Heart block status post PPM Renal function has improved, creatinine currently 1.3 Agree with gentle IVF No further workup required at this time Avoid nephrotoxins Will sign off Please call with questions
[2022-05-13] MEDS: FUROSEMIDE 20 MG TAB PO SCH (06:14)
[2022-05-13] MEDS ORDERED: PANTOPRAZOLE 40 MG TAB PO SCH (07:30)
[2022-05-13 07:44] LABS: Hematocrit 26.8 % (35.5-45.6); Hemoglobin 8.7 gm/dl (11.8-15.2)
[2022-05-13 07:55] LABS: BUN/Creatinine Ratio 23; Blood Urea Nitrogen 30 mg/dL (9-20); INR 1.24 (0.87-1.13)
[2022-05-13 07:56] LABS: Calcium 8.8 mg/dL (8.4-10.2)
[2022-05-13 07:58] LABS: Alanine Aminotransferase < 5 units/L (7-56); Albumin 3.4 g/dL (3.9-5)
[2022-05-13 07:59] LABS: Hemolysis Index 3
[2022-05-13] MEDS: ENOXAPARIN 100 MG/1 ML INJ SUB-Q SCH (09:22)
--- NOTE | 2022-05-13 10:12 | Ultrasound Report ---
ULTRASOUND ABDOMEN, COMPLETE INDICATION: elevated Tbili. COMPARISON: Right upper quadrant ultrasound performed on 04/01/2022. FINDINGS: Pancreas: No significant abnormality. Abdominal Aorta: No significant abnormality. IVC: No significant abnormality. Liver: Mildly enlarged, measuring 17 cm. Normal echotexture without suspicious lesions. Normal portal venous flow. Gallbladder: No significant abnormality. Bile ducts: No significant abnormality. Common bile duct measures 5 mm. Kidneys: Right: No significant abnormality. Left : No significant abnormality. Spleen: No significant abnormality. Free fluid: None. Additional Findings: None. IMPRESSION: Mild hepatomegaly without other significant abnormalities. Signer Name: Teja Arteaga MD Signed: 05/13/2022 10:08 AM Workstation Name: [employer]
[2022-05-13] MEDS ORDERED: SPIRONOLACTONE 25 MG TAB PO SCH (11:00)
[2022-05-13] MEDS ORDERED: carvediloL 3.125 MG TAB PO SCH (11:00)
--- NOTE | 2022-05-13 11:07 | Discharge Summary ---
Providers - Providers Date of Admission: 05/08/22 22:09 Attending physician: MEGHAN CASTANON MD 05/08/22 22:09 Consult to Physician [CONS] Routine Comment: Consulting Provider: PAM FRY Physician Instructions: Reason For Exam: Chest pain 05/09/22 10:19 Consult to Physician [CONS] Routine Comment: Consulting Provider: RICHARD WHALEY Physician Instructions: Reason For Exam: endocarditis/covid 19 05/12/22 11:18 Consult to Physician [CONS] Routine Comment: call the office/[facility] Consulting Provider: RUDI SHI Physician Instructions: Reason For Exam: elevated Tbili 05/12/22 11:31 Consult to Case Management [CONS] Routine Services Needed at Discharge: Other Comment:: IV abx Additional Physician Instructions: Resume IV Ancef 2 gm q8 hrs through [facility] as per his physicians at [facility]. Primary care physician: MARIJA GALLARDO Hospitalization Reason for admission: Chest pain Condition: Stable Hospital course: This is a 46-year-old male with HFrEF/NICMP (EF 10-15%), chronic HCV infection, valvular heart disease s/p MVR, Chronic heart block s/p PPM (2016), AFlutter s/p ligation who presented to the emergency department on 05/08 with complaints of chest pain. 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 Patient was admitted to the hospitalist service with consults to [facility] and cardiology with acute on chronic heart failure and MRSA infection. Hospital course: 05/09: Patient tested positive for COVID-19, ID consulted, started on steroids. Remains on levophed. Started on dobutamine and midodrine. 05/10: Stable. renal function slight improved, Levophed off. Transfer to [facility] 05/11: D/w cardiology, plan to wean off dobutamine. patient MAP optimzied. Resume IV abx therapy initiated originally by [facility] ID physician for tx of endocarditis. Recommendation was for IV Ancef 2 g every 8 hours, total 6 weeks therapy. This was initiated on 04/27/2022 per [facility] records. Additionally, per ID, due to high risk of disease progression with COVID-19, they have ordered Remdesivir x 3 days. Once off dobutamine patient could potentially be txfr to tele bed. 05/12: Discussed with cardiology during my evaluation stop Midodrine per Cardiology, GI evaluation fro chronically elevated Tbili in the setting of SEPSIS. Transfer to [facility] due to noted covid positively. Remdesivir PER ID day 2 of 3. Can transfer to the medical floor today and if remains stable from blood pressure standpoint anticipate discharge tomorrow. Patient aware of plan 05/13: Patient seen and examined, resting comfortable, no new complains, initially refused Enoxaparin, said he was having reaction to it, but when offered to remain inhouse on heparin drip, opted to continue taking the Enoxaparin. GI saw the patient and recommend: Hyperbilirubinemia Current Visit: Yes Status: Acute Plan to address problem: - The patient's LFTs are stable (slightly improving today), and he has multiple reasons for acute exacerbation of chronic problem (COVID, bacteremia/sepsis, new antibiotics, significant cardiac disease). - Since labs are stable, and imaging shows no liver abscess, would not pursue further as an inpatient. - Recommend follow up with [facility] service given severe underlying cardiomyopathy and complex comorbids. - We will sign off; please call if needed. ABLA (acute blood loss anemia) Current Visit: Yes Status: Acute Plan to address problem: - No melena or hematemesis to suggest acute GI bleed. - Given elevated LDH, he may have hemolysis from his endocarditis. - Recommend protonix daily therapy; consider EGD/colon only if significant hemorrhage given unstable cardiac disease. cardiology made some changes as noted below BP stable off midodrine we will initiate carvedilol 3.125 mg p.o. twice daily and Aldactone. We will hold KAREN and ARB at this time due to soft BP. Will defer to patient's primary labor economics teacher for reinitiation Continue Lasix 20mg PO BID Patient currently on Lovenox with bridge therapy to Coumadin. Abx mgmt per Primary team/ID. Cardiac status otherwise stable for discharge Patient scheduled for follow-up with Dr. Winn on 05/27/2022 at 1 PM in our [place] location Patient to follow with Cardiology outpatient. Extensive counselling provided and patient verbalized understanding. Patient will continue with PICC line and complete antibiotics and discontinue PICC line after. Continue to follow-up with the primary care doctors. 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 -Midodrine TID -Echocardiogram LVEF 20-25%. severe global hypokinessis of LV. RV systolic function mildly reduced. IVC dilate. RVSP > 60 mmHg -pro BNP 5393 Respiratory: NAD -CCM consulted, appreciate recommendations -Supplemental oxygenation as needed -Pulmonary hygiene -SPO2 monitoring GI: h/o chronic HCV -24 hours -1438 ml -PPI -Cardiac diet - GB evaluation- Elevated Tbili : Acute Kidney Injury likely secondary to vasomotor nephropathy (resolved) -Monitor intake and output -Renally dose medications -Avoid nephrotoxic medications -FeNa prerenal but will hold off fluid in setting on HF and COVID -Renal ultrasound pending -Trend BMP ID: Covid 19 infection, History of endocarditis -Infectious disease consulted, appreciate recommendation - was worked up and treated for endocarditis at [facility] last month. -Antibiotic therapy with Ancef per ID 2 g q8hr IV x 6 weeks. Initial start date was 04/27/2022 per [facility] records. - Remdesivir x 3 day per ID recommendation - no indication for steroids as patient is on RA. -Contact and Droplet precautions -Trend COVID-19 inflammatory markers every 48 hours -f/u blood culture -Monitor WBC and temperature curve Endo: NAD -Avoid hypoglycemia Heme: NAD -Heparin gtt -Trend CBC -Transfuse hemoglobin less than 7 -SCDs to BLE while in bed Disposition: HOME HEALTH CARE SERVICE Final Discharge Diagnosis (Prints w/discharge instructions): Hypotension, h/o HFrEF, NICMP (EF10-15%), valvular heart disease s/p MVR, chronic heart block s/p PPM, aflutter, S/p DENVER Occlusion (11/2016), Severe Bioprosthetic MS, Severe TR. Acute Kidney Injury likely secondary to vasomotor nephropathy (resolved) Time spent for discharge: 35 minutes Core Measure Documentation - Palliative Care Palliative Care/ Comfort Measures: Not Applicable - Core Measures Any of the following diagnoses?: heart failure - Heart Failure Discharge Requirements KAREN/ARB for LVSD if EF <40%: No Reason for no KAREN/ARB: Hypotension Beta trev at discharge: Yes Exam - Physical Exam Narrative exam: - EENT Eyes: Present: PERRL, EOM intact ENT: hearing intact, clear oral mucosa, dentition normal - Neck Neck: Present: normal ROM - Respiratory Respiratory effort: normal Respiratory: bilateral: diminished - Cardiovascular Rhythm: regular Heart Sounds: Present: S1 & S2 - Extremities Extremities: no ischemia, pulses intact, pulses symmetrical Peripheral Pulses: within normal limits - Abdominal General gastrointestinal: soft, non-tender, non-distended, normal bowel sounds - Integumentary Integumentary: Present: warm, dry - Psychiatric Psychiatric: cooperative - Neurologic Neurologic: CNII-XII intact, no focal deficits, moves all extremities - Allied Health Allied health notes reviewed: nursing Sitting up during exam., Well-healed surgical Midline chest. - Constitutional Vitals: Temp Pulse Resp BP Pulse Ox 97.5 F L 95 H 16 119/78 96 05/13/22 00:04 05/13/22 05:10 05/13/22 08:41 05/13/22 05:10 05/13/22 08:41 Plan Activity: advance as tolerated, fall precautions Diet: low salt Additional Instructions: please continue and complete Antibiotics Follow up with: [facility] [Provider Group] - 7 Days LUIS WINN MD [Staff Physician] - 05/27/22 1:00 pm ([place] office) MARIJA GALLARDO MD [Primary Care Provider] - 3-5 Days JONATAN MONTES MD [Staff Physician] - 7 Days Forms: Warfarin Discharge Instruction Prescriptions: AtorvaSTATin 10 mg PO QHS #30 tablet Spironolactone [Aldactone] 25 mg PO QDAY #30 tablet carvediloL [Coreg] 3.125 mg PO BID #60 tablet Warfarin [Coumadin] 5 mg PO DAILY@1700 #30 tablet Enoxaparin 90 mg SUB-Q Q12HR #14 syringe Furosemide [Lasix TAB] 20 mg PO 0600,1800 #60 tablet Pantoprazole [Protonix TAB] 40 mg PO QDAC #30 tablet Calcium Carbonate [Tums 500MG CHEW] 500 mg PO Q4H PRN #90 tablet PRN Reason: Indigestion
--- NOTE | 2022-05-13 12:11 | Progress Note ---
Assessment and Plan 46-year-old AA male with a complex medical hx outlined below who was recently admitted for sepsis/MSSA bacteremia and concern for bioprosthetic MV endocarditis. He was set up for transfer to [facility] but ultimately left AMA and drove himself there (admitted to [facility] on 04/23 for ADHF). A repeat workup, including TTE, PRATIMA, and cardiac CTA, was performed. Per the [facility], anteromedial MV leaflet thickening likely favored thrombus over vegetation. Pt was seen by ID @ [facility], who in light of pt's risk factors, citlaly mmended PICC for 6 weeks cefazolin 2g q8h irregardless, after which time a PRATIMA was to be performed for reassessment. Pt was started on Coumadin with heparin bridging for tx of possible thrombus but ultimately requested to leave [facility] AMA prior to therapeutic INR being achieved. He is admitted now with complaints of fatigue, fever/chills, and a cough productive of green sputum. He has been found to be COVID-positive. Cardiology has been consulted for chest pain. Pleuritic Chest Pain COVID-19 Infection ?Prosthetic MV Endocarditis ?MV Leaflet Thrombus HFrEF/NICMP (EF 10-15%, declined AICD in 2018 d/t lack of employment/insurance, undergoing outpatient EP workup for CAR TRACER-D upgrade) Hypotension KAYLIN/?CKD Anemia PAFlutter (recently switched from Eliquis to Coumadin d/t concern for MV thrombosis & evidence of severe bioprosthetic MS) S/p DENVER Occlusion (11/2016) Severe Bioprosthetic MS H/o Severe MR s/p Bioprosthetic MV (11/2016) Severe TR S/p TV Repair/Ring Annuloplasty (11/2016) H/o CHB s/p PPM ([employer]) H/o HTN Hep C/Chronic Jaundice H/o EtOH Abuse H/o Tobacco Abuse Medical Non-Compliance Echo 05/09/2022-EF 20 to 25% severe global hypokinesis of left ventricle right ventricular systolic function mildly reduced. Pacemaker lead present in right ventricle. Right atrium is normal in size. Pacemaker lead present in the right atrium. Interatrial septum is intact without evidence of ASD or PFO. Prosthetic mitral valve is present. Prosthetic mitral valve is not well visualized due to imaging artifact from prosthesis. Moderate tricuspid regurgitation. Moderate pulmonary hypertension. Moderate pulmonic regurgitation. IVC is dilated and collapses with less than 50% with inspiration Cardiac CTA 04/27/2022: There is a 33 mm Mosaic valve in the mitral position with severe hypoattenuating leaflet thickening of the anteromedial leaflet. This could represent thrombus vs vegetation. There is a 32 mm MC3 tricuspid valve ring present. The left ventricle ventricle is dilated with severely reduced systolic function. Calculated LVEF 16% The right ventricle is severely dilated with severely reduced systolic function. Non-obstructive coronary atherosclerosis. PRATIMA 04/24/2022: Left ventricular ejection fraction is 25%. Severely decreased left ventricular ejection fraction. S/p 33 mm Mosaic MVR. There is mild valvular MR. The anteromedial leaflet is thickened and restricted consistent with leaflet thrombosis. Mean gradient 8-11 mmHg (at HR 90-110 BPM). 32 mm MC3 TV ring with a RV lead. There is severe tricuspid regurgitation, the leaflets were not well visualized. Mild aortic valve insufficiency. Severely enlarged right ventricular cavity size. Severely reduced right ventricular systolic function. The DENVER is ligated. Limited echo 04/13/2022-EF 10 to 15%. Severe global hypokinesis of left ventricle. Device is present in right atrium. Device lead is present in right ventricle. Right ventricle is moderately hypokinetic PRATIMA 04/14/2022-EF 10 to 15% severe global hypokinesis of left ventricle. No thrombus noted in LV. Right ventricle severely hypokinetic. Device lead is present in right ventricle. No vegetations. Device lead is present in right atrium. No vegetations no left atrial appendage with normal left pulmonary vein. Saline bubble study did not demonstrate PFO. Mitral valve vegetation is present on bioprosthetic mitral valve. Bioprosthetic mitral valve present. No tricuspid valve vegetations. No pulmonic valve vegetations. No aortic valvular vegetation. Echo 04/01/2022: EF 10 to 15%. Left ventricle is mildly dilated. Severe global hypokinesis of left ventricle. Left ventricular end-diastolic pressure is elevated. Right ventricle is dilated. Right ventricle is hypokinetic. Device lead is present in right ventricle. Left atrium is mildly dilated. Right atrium is dilated. Bioprosthetic mitral valve is present. Mild to moderate tricuspid regurgitation. RVSP 41mmHg. PRATIMA 04/14/2022: EF 10 to 15%, severe global hypokinesis of left ventricle. No t hrombus noted in LV. Right ventricle severely hypokinetic. Device lead is present in right ventricle, no vegetations. Device lead is present in right atrium, no vegetations. No left atrial appendage. Normal left pulmonary vein. Saline bubble study did not demonstrate PFO. Mitral valve vegetation is present on bioprosthetic mitral valve. Bioprosthetic mitral valve present. No tricuspid valve vegetation. No pulmonic valve vegetation. No aortic valvular vegetation. TTE 04/01/2022: EF 10 to 15%. Left ventricle is mildly dilated. Severe global hypokinesis of left ventricle. Left ventricular end-diastolic pressure is elevated. Right ventricle is dilated. Right ventricle is hypokinetic. Device lead is present in right ventricle. Left atrium is mildly dilated. Right atrium is dilated. Bioprosthetic mitral valve is present. Mild to moderate tricuspid regurgitation. RVSP 41mmHg. Lexiscan MPI Stress Test 10/2018: Negative for ischemia, EF 15% Plan: BP stable off midodrine we will initiate carvedilol 3.125 mg p.o. twice daily and Aldactone. We will hold KAREN and ARB at this time due to soft BP. Will defer to patient's [facility] flight deck officer for reinitiation Continue Lasix 20mg PO BID Patient currently on Lovenox with bridge therapy to Coumadin. Abx mgmt per Primary team/ID. Cardiac status otherwise stable for discharge Patient scheduled for follow-up with Dr. Jennings on 05/27/2022 at 1 PM in our [place] location Patient is here for INR check on 05/15/2022 at 10:[address] [facility] Patient seen in conjunction with Dr. Way who agrees with this plan of care - Patient Problems (1) COVID-19 Current Visit: Yes Status: Acute (2) Chronic hepatitis Current Visit: Yes Status: Acute (3) Thrombosis of mitral valve Current Visit: Yes Status: Acute (4) Cardiac pacemaker in situ Current Visit: Yes Status: Chronic (5) HFrEF (heart failure with reduced ejection fraction) Current Visit: Yes Status: Chronic (6) History of mitral valve replacement with bioprosthetic valve Current Visit: Yes Status: Chronic (7) History of tricuspid valve annuloplasty Current Visit: Yes Status: Chronic (8) Nonischemic cardiomyopathy Current Visit: Yes Status: Chronic (9) Acute on chronic HFrEF (heart failure with reduced ejection fraction) Current Visit: No Status: Acute (10) Ascites Current Visit: No Status: Acute (11) COVID-19 vaccination not done Current Visit: No Status: Acute (12) History of atrial fibrillation Current Visit: No Status: Acute (13) MRSA infection Current Visit: No Status: Acute (14) AICD (automatic cardioverter/defibrillator) present Current Visit: No Status: Chronic (15) Noncompliance with medication regimen Current Visit: No Status: Chronic Subjective Date of service: 05/13/22 Principal diagnosis: COVID-19, Bioprosthetic MV IE vs Thrombus, HFrEF Interval history: Patient resting in bed in no acute distress Paced 70s on monitor Objective Vital Signs Temp Pulse Pulse Resp Resp BP Pulse Ox 05/13/22 08:41 16 96 05/13/22 08:28 98 05/13/22 05:10 95 H 23 119/78 93 05/13/22 05:00 97 H 15 119/78 95 05/13/22 04:54 105 H 25 H 124/75 95 05/13/22 03:29 100 05/13/22 02:00 72 05/13/22 00:04 97.5 F L 65 20 120/75 100 05/12/22 23:10 73 13 103/64 100 05/12/22 23:00 75 18 103/64 98 05/12/22 22:50 74 19 126/82 99 05/12/22 22:43 26 H 05/12/22 22:42 74 12 126/82 99 05/12/22 22:30 71 26 H 126/82 100 05/12/22 22:00 71 26 H 121/74 100 05/12/22 21:30 124/79 100 05/12/22 21:17 100 05/12/22 21:00 112/71 100 05/12/22 20:30 68 22 121/73 100 05/12/22 20:00 98.4 F 65 18 116/79 100 05/12/22 19:30 65 13 112/80 100 05/12/22 19:00 64 13 128/82 100 05/12/22 18:30 62 12 126/87 100 05/12/22 18:00 63 18 126/88 100 05/12/22 17:30 63 17 117/85 100 05/12/22 17:06 98.3 F 05/12/22 17:00 63 11 L 118/82 100 05/12/22 16:30 63 9 L 119/80 100 05/12/22 16:00 76 78 13 122/74 99 05/12/22 15:30 62 10 L 127/78 100 05/12/22 15:00 69 20 125/80 98 05/12/22 14:30 63 20 120/76 100 05/12/22 14:00 64 17 127/82 100 05/12/22 13:30 67 18 113/67 100 05/12/22 13:00 67 17 116/75 100 05/12/22 12:30 62 11 L 119/76 100 - Physical Examination General: No Apparent Distress HEENT: Positive: EOMI, Normocephaly Neck: Positive: trachea midline. Negative: JVD/HJR Cardiac: Positive: Reg Rate and Rhythm Lungs: Positive: Normal Breath Sounds Neuro: Positive: Grossly Intact Abdomen: Positive: Soft. Negative: Tender Skin: Negative: Rash Musculoskeletal: No Pain Extremities: Present: warm. Absent: edema - Labs and Meds Cardiac Enzymes 05/13/22 Range/Units 06:40 AST 16 (5-40) units/L Lactate Dehydrogenase 209 H (91-180) units/L Coagulation 05/12/22 05/13/22 Range/Units 15:21 06:40 PT 15.2 H 17.0 H (12.2-14.9) Sec. INR 1.08 1.24 H (0.87-1.13) CBC 05/13/22 Range/Units 06:40 Hgb 8.7 L (11.8-15.2) gm/dl Hct 26.8 L (35.5-45.6) % Plt Count 279 (140-440) K/mm3 Comprehensive Metabolic Panel 05/13/22 Range/Units 06:40 Sodium 137 (137-145) mmol/L Potassium 3.4 L (3.6-5.0) mmol/L Chloride 100.5 (98-107) mmol/L Carbon Dioxide 25 (22-30) mmol/L BUN 30 H (9-20) mg/dL Creatinine 1.3 (0.8-1.3) mg/dL Glucose 90 (75-100) mg/dL Calcium 8.8 (8.4-10.2) mg/dL AST 16 (5-40) units/L ALT < 5 L (7-56) units/L Alkaline Phosphatase 99 (35-129) units/L Total Protein 5.8 L (6.3-8.2) g/dL Albumin 3.4 L (3.9-5) g/dL - Imaging and Cardiology EKG: report reviewed, image reviewed Echo: report reviewed, other - Telemetry EKG Rhythm: Paced Pacemaker: ventricular pacing w/capt
[2022-05-13 12:22] VITALS: BP 101/63
[2022-05-13] MEDS: REMDESIVIR 100 MG in SODIUM CHLORIDE 0.9% 250ML 250 ML IV SCH (14:33)
[2022-05-13] MEDS: SODIUM CHLORIDE 0.9% 50 ML IVPB IV SCH (15:10)
[2022-05-13] MEDS ORDERED: WARFARIN 5 MG TAB PO NR (17:00)
== END 2022-05-13 16:55 | disposition home health service (06) | DRG 314 ==
LOC: ED 16:27 → CC1 22:09 → IMCU 05-10 23:41 → 3A 05-13 00:11
PROVIDERS: ADMIT Hospitalist; ATTEND Internal Medicine
PROC: XW033E5 Introduction of Remdesivir Anti-infective into Peripheral Vein, Percutaneous Approach, New Technology Group 5 (ICD-10-PCS; principal; 2022-05-11)
DX: T82.6XXA Infection and inflammatory reaction due to cardiac valve prosthesis, initial encounter (principal); A41.9 Sepsis, unspecified organism; I50.23 Acute on chronic systolic (congestive) heart failure; N17.0 Acute kidney failure with tubular necrosis; U07.1 COVID-19; I42.8 Other cardiomyopathies; I48.92 Unspecified atrial flutter; E87.1 Hypo-osmolality and hyponatremia; D62 Acute posthemorrhagic anemia; I38 Endocarditis, valve unspecified; I48.0 Paroxysmal atrial fibrillation; I25.10 Atherosclerotic heart disease of native coronary artery without angina pectoris; I11.0 Hypertensive heart disease with heart failure; E78.2 Mixed hyperlipidemia; Z91.19 Patient's noncompliance with other medical treatment and regimen; I07.1 Rheumatic tricuspid insufficiency; D64.9 Anemia, unspecified; E87.6 Hypokalemia; Z95.810 Presence of automatic (implantable) cardiac defibrillator; Z82.49 Family history of ischemic heart disease and other diseases of the circulatory system; Z88.8 Allergy status to other drugs, medicaments and biological substances; Y83.2 Surgical operation with anastomosis, bypass or graft as the cause of abnormal reaction of the patient, or of later complication, without mention of misadventure at the time of the procedure; Y92.89 Other specified places as the place of occurrence of the external cause; I05.9 Rheumatic mitral valve disease, unspecified
CPT/HCPCS: 36415; 71045; 76700; 76770; 80048; 80053; 82570; 82728; 82962; 83615; 83880; 84145; 84300; 84484; 84520; 85007; 85014; 85018; 85025; 85027; 85049; 85379; 85520; 85610; 85730; 86140; 87040; 93005; 93306; 99282; G0378; J2354; J3490; C8929; J0690; J0696; J1250; J1265; J1644; J1650; J2270; J2405; J3370; J7040; J7050; J8540; U0003